=== PATIENT | male | born 1965 | race Caucasian/White ===

== ENCOUNTER 2016-12-02 07:25 | Inpatient (IN) ==
[2016-12-02] MEDS ORDERED: 0.9 % Sodium Chloride 1,000 ML IVC ONE ×2 (08:04→09:07)
--- NOTE | 2016-12-02 08:15 | Emergency Department Note ---
START Narrative - START START: I examined this patient and my medical decision-making was reviewed with the MAINTENANCE TECH/PA/Advanced Practice Nurse/Resident Physician. I agree with the documented findings, disposition and treatment plan as described except to the extent set forth below. ED attending note: Patient seen with emergency medicine resident Dr. POZO. Please see a copy of his note for details of the H&P, evaluation, management and disposition of this patient. We independently had [id number] contact with the patient Briefly: A 51-year-old male presents ambulatory with family for gradual 1 day onset of shivers low-grade fever while shortness of breath. He said he felt this way when he "had a blood infection" in the past. Patient does have a small ulcer on the foot. He is diabetic. Tachycardic at 107 hypertensive systolic at 218 but due to his nausea did not take his morning dose of Coreg. Patient denies chest pain or photophobia. GCS 15. Low-grade fever 99.5. Physical examination is essentially benign. Patient will undergo a workup for possible seizures, looking for source of infection. Labs and imaging are pending. Patient getting IV fluid rehydration and antiemetics. Disposition pending
[2016-12-02 08:21] LABS: Basophils # 0.1 K/mcL (0.0-0.2); Basophils % 0.4 %; Eosinophils # 0.8 K/mcL (0.0-0.6); Eosinophils % 4.9 %; Hemoglobin 10.2 g/dL (12.9-16.9); Immature Granulocytes % 0.2 % (0-4); Lymphocytes # 1.2 K/mcL (0.6-4.6); Lymphocytes % 7.2 %; Mean Corpuscular HGB Conc 30.9 g/dL (31.6-35.5); Mean Corpuscular Hemoglobin 27.7 pg (28.0-33.3); Mean Corpuscular Volume 89.7 fL (83.0-100.0); Mean Platelet Volume 10.7 fL (9.4-12.4); Monocytes # 1.2 K/mcL (0.0-1.3); Monocytes % 6.9 %; Neutrophils # 13.4 K/mcL (1.6-8.9); Platelet Count 230 K/mcL (140-400); Red Blood Count 3.68 M/mcL (4.19-5.50); Red Cell Distribution Width 14.9 % (11.5-14.5); Segmented Neutrophils % 80.4 %
[2016-12-02 08:23] LABS: Bilirubin,Urine Negative (Negative); Blood,Urine Negative (Negative); Clarity,Urine Clear (Clear); Color,Urine Yellow (Yellow); Glucose,Urine (UA) Normal (Normal); Ketones,Urine Negative (Negative); Leukocyte Esterase,Urine Negative (Negative); Nitrite,Urine Negative (Negative); PH,Urine 6.5 pH Units (5.0-8.0); Protein,Urine 100 mg/dL (Neg-Trace); Specific Gravity,Urine 1.013 (1.010-1.025); Urobilinogen,Urine Normal (Normal)
--- NOTE | 2016-12-02 08:24 | Emergency Department Note ---
Disposition Clinical Impression: Altered mental status Sepsis Qualifiers: Sepsis type: sepsis due to unspecified organism Qualified Code(s): A41.9 - Sepsis, unspecified organism Leukocytosis Qualifiers: Leukocytosis type: unspecified Qualified Code(s): D72.829 - Elevated white blood cell count, unspecified Disposition: Admitted As Inpatient Condition: Fair Time of Disposition: 11:49 General Adult HPI - General Chief complaint: ED Fever Stated complaint: "shivers", vomiting, fever Time Seen by Provider: 12/02/16 07:35 Source: patient, family Mode of arrival: wheelchair Limitations: no limitations Nursing Notes Reviewed: Yes Vital Signs Reviewed: Yes - History of Present Illness HPI Narrative: Patient is a 51-year-old male with a past medical history of type 2 diabetes, high cholesterol, hypertension presenting to the emergency department for fever and chills with one episode of vomiting onset last night at 8:00 PM. Yesterday evening he had chills and he woke up at 3:00 AM this morning feeling feverish, he then had 1 episode of vomiting at 6:00 AM this morning. He states the symptoms feel similar to an episode of nausea, vomiting, and fever that he had a few years ago that was related to infection caused by his diabetic foot ulcer. He has a healing foot ulcer on his plantar aspect of his right foot near the arch that has been painful for the last 2 days however, his did not notice any redness or drainage around the wound. His took is temperature and it was 99.0F, however he does take Tylenol Extra Strength every night and he says that he took 500 mg this morning. He also did not take his Coreg this morning due to his nausea and vomiting. He denies any chest pain, he does have some shortness of breath with a non-productive cough for the past couple of days, denies any abdominal pain, no change in stools, and no new swelling in his lower extremities. His states that the patient's legs actually look better today than they normally do as far as swelling. Denies any recent sick contacts. He has allergies to Keflex and Levaquin. He sees Dr. Alford for his diabetic foot ulcer and Dr. Hodgson for podiatry. Onset (ago): day(s) Pain Scale: 0 Associated symptoms: Reports: cough, fever/chills, nausea/vomiting, shortness of breath. Denies: confusion, chest pain, diaphoresis, headaches, loss of appetite, malaise, rash, seizure, syncope, weakness Treatments Prior to Arrival: other (Tylenol ES) - Related Data Home Medications Medication Instructions Recorded Confirmed Acetaminophen [Tylenol] 500 mg PO HS 12/02/16 12/02/16 Carvedilol Phosphate [Coreg Cr] 80 mg PO DAILY 12/02/16 12/02/16 Clobetasol Propionate [Temovate] 1 appl TP BID PRN 12/02/16 12/02/16 Ergocalciferol (VITAMIN D2) 50,000 unit PO QWEEK 12/02/16 12/02/16 [Vitamin D2] Famotidine/Ca Carb/Mag Hydrox 1 each PO DAILY PRN 12/02/16 12/02/16 [Pepcid Complete Tablet Chew] Fluticasone/Salmeterol [Advair 1 each IH BID PRN 12/02/16 12/02/16 250-50 Diskus] Furosemide [Lasix] 40 mg PO DAILY 12/02/16 12/02/16 Gabapentin [Neurontin] 100 mg PO HS 12/02/16 12/02/16 Insulin Glargine,Hum.rec.anlog 46 units SQ BID 12/02/16 12/02/16 [Lantus Solostar] Lisinopril [Lisinopril] 2.5 mg PO DAILY 12/02/16 12/02/16 Metformin HCl [Glucophage] 1,000 mg PO BID 12/02/16 12/02/16 Pentoxifylline [Pentoxifylline] 400 mg PO BID 12/02/16 12/02/16 Potassium Chloride 20 meq PO DAILY 12/02/16 12/02/16 Pramipexole [Mirapex] 0.25 mg PO BID 12/02/16 12/02/16 Simvastatin [Zocor] 20 mg PO DAILY 12/02/16 12/02/16 Triamcinolone Acet 0.1% CRM 1 appl TP BID PRN 12/02/16 12/02/16 [Kenalog] Warfarin [Coumadin] 8 mg PO SUTUWETHSA 12/02/16 12/02/16 Warfarin [Coumadin] 10 mg PO MOFR 12/02/16 12/02/16 Allergies Allergy/AdvReac Type Severity Reaction Status Date / Time peanut Allergy Anaphylaxis Verified 12/02/16 11:25 cephalexin [From Keflex] AdvReac Rash Verified 12/02/16 11:25 levofloxacin AdvReac Rash Verified 12/02/16 11:25 Sulfa (Sulfonamide AdvReac Rash Verified 12/02/16 11:25 Antibiotics) All systems ED: reviewed and negative except as stated. Constitutional: Reports: fever, chills ENT ED: Denies: ear pain, throat pain Cardiovascular: Denies: chest pain, palpitations, dyspnea on exertion, edema Respiratory: Reports: cough, dyspnea. Denies: wheezes, hemoptysis, sputum production Gastrointestinal: Reports: nausea, vomiting. Denies: abdominal pain, diarrhea, hematemesis, melena, hematochezia Genitourinary: Denies: urgency, dysuria, frequency, hematuria Musculoskeletal: Denies: back pain, neck pain Integumentary: Denies: rash Past Medical History - Past Medical History Medical history: Reports: asthma, diabetes, hypertension, other Psychiatric history: Reports: no psych history - Social History Smoking Status: Never smoker Smokeless Tobacco Status: No Alcohol use: Reports: none Drug use: Reports: none Physical Exam - General Limitations: no limitations General appearance: alert, in no apparent distress, obese - Eye Eye exam: Present: normal appearance - ENT ENT exam: normal exam, normal oropharynx, mucous membranes dry - Neck Neck exam: Present: normal inspection, full ROM, trachea midline. Absent: tenderness - Chest Chest inspection: Present: normal inspection, symmetric chest wall rise. Absent : tenderness - Respiratory Respiratory exam: Present: normal lung sounds bilaterally, wheezes. Absent: respiratory distress - Cardiovascular Cardiovascular exam: Present: regular rate, normal rhythm, normal heart sounds - Abdominal Exam Abdominal exam: Present: soft, Non-Tender, normal bowel sounds - Expanded Lower Extremity Exam Lower leg exam: Present: swelling (Patient has chronic venous stasis changes to bilateral lower extremities. His lower extremities are swollen bilaterally. No calf tenderness. No obvious rash, wound, or drainage. Warm to touch.). Absent: tenderness Foot/toe exam: Present: other (Pt has a healing ulcer that is about [id number] on the planter aspect of his right foot. The ulcer looks clean, non-erythematous, no drainage or crepitance. ) Neurovascular/Tendon exam: Present: normal capillary refill. Absent: pulse deficit - Back Exam Back exam: Present: normal inspection. Absent: tenderness - Neurological Exam Neurological exam: Present: alert, oriented X3 - Psychiatric Psychiatric exam: Present: normal affect, normal mood - Skin Skin exam: Present: warm, dry, intact, pallor Course Course Narrative: Is a 51-year-old male presents to emergency department with a complaint of shivering, fevers, SOB, she did a workup for seizures and I am going to look for source of infection. Since blood pressure is elevated and one episode of vomiting. He states his symptoms are similar to last time he had an infection in his bloodstream related to a foot ulcer. He does have a healing foot ulcer on his right foot. My plan is to order labs and imaging to work the patient up for SIRS and attempt to find a source of infection. - Reevaluation(s) Reevaluation #1: The patient remains stable his vital signs are: HR 111, BP 183/54, 99% on 2L CBC came back with leukocytosis, his INR was elevated but that seems chronic when reviewing past labs, his urine does not show any sign of infection, bleeding or dehydration. Time: 08:53 Reevaluation #2: The patient's stated the patient is on Coumadin and he is seen at a Coumadin clinic regularly he has a past medical history of PE's. Pt vital signs are 147/105, HR 111, 100RA. I ordered at CTA of the chest. Patient is becoming more difficult to arouse. The patient's states this is similar to the last time he had a infection of his blood stream. Time: 09:14 Reevaluation #3: The patient has a negative CTA chest. Vancomycin and Zosyn due to patient's current condition is elevated heart rate and white blood cell count and concern for sepsis possible source of infection being his right foot ulcer. Plan is to admit the patient. I ordered a garvey. Time: 10:56 - Consultations Consultation #1: I spoke with Dr. Valera and he agrees to admit the patient. I placed a consult for podiatry to further evaluate the patient's foot ulcer. Time: 11:40 Consultation #2: Dr. Parish with podiatry agrees to see the patient in hospital. Time: 12:37 Vital Signs Temperature 99.5 F 12/02/16 07:27 Pulse Rate 107 12/02/16 07:27 Respiratory Rate 16 12/02/16 07:27 Blood Pressure 213/94 12/02/16 07:27 O2 Sat by Pulse Oximetry 98 12/02/16 07:27 Temperature 102.2 F H 12/02/16 12:00 Pulse Rate 106 12/02/16 11:39 Respiratory Rate 18 12/02/16 12:00 Blood Pressure 122/69 12/02/16 12:00 O2 Sat by Pulse Oximetry 98 12/02/16 11:39 Oxygen Delivery Oxygen Delivery Nasal Cannula Medical Decision Making - Medical Records Medical records reviewed: Yes I reviewed the patient's medical records. - Lab Data Lab results reviewed: Yes I reviewed the patient's lab results. Result diagrams: 12/02/16 08:11 12/02/16 08:11 Lab Results 12/02/16 12/02/16 12/02/16 Range/Units 08:11 08:11 08:11 WBC 16.6 H (4.3-11.1) K/mcL RBC 3.68 L (4.19-5.50) M/mcL Hgb 10.2 L (12.9-16.9) g/dL Hct 33.0 L (37.5-50.1) % MCV 89.7 (83.0-100.0) fL MCH 27.7 L (28.0-33.3) pg MCHC 30.9 L (31.6-35.5) g/dL RDW 14.9 H (11.5-14.5) % Plt Count 230 (140-400) K/mcL MPV 10.7 (9.4-12.4) fL Immature Gran % 0.2 (0-4) % Seg Neutrophils % 80.4 % Lymphocytes % 7.2 % Monocytes % 6.9 % Eosinophils % 4.9 % Basophils % 0.4 % Neutrophils # 13.4 H (1.6-8.9) K/mcL Lymphocytes # 1.2 (0.6-4.6) K/mcL Monocytes # 1.2 (0.0-1.3) K/mcL Eosinophils # 0.8 H (0.0-0.6) K/mcL Basophils # 0.1 (0.0-0.2) K/mcL PT 20.2 H (9.4-12.1) Seconds INR 1.8 APTT 34.7 (26.0-36.0) Seconds Sodium (136-145) mEq/L Potassium (3.5-4.5) mEq/L Chloride (98-109) mEq/L Carbon Dioxide (19-29) mEq/L BUN (8-26) mg/dL Creatinine (0.72-1.25) mg/dL Est GFR ( Amer) (> 60) Est GFR (Non-Af Amer) (> 60) BUN/Creatinine Ratio (6-26) Glucose (70-99) mg/dL Calculated Osmolality (280-300) Lactic Acid 1.7 (0.5-2.2) mmol/L Calcium (8.6-10.8) mg/dL Phosphorus (2.3-4.7) mg/dL Magnesium (1.6-2.6) mg/dL Total Bilirubin (0.2-1.2) mg/dL AST (5-34) Units/L ALT (0-55) Units/L Alkaline Phosphatase (38-126) Units/L Troponin I (0-0.03) ng/mL Serum Total Protein (6.0-8.3) g/dL Albumin (3.5-5.0) g/dL Globulin (2.4-3.5) g/dL Albumin/Globulin Ratio (1.1-2.2) Urine Color (Yellow) Urine Clarity (Clear) Urine pH (5.0-8.0) pH Units Ur Specific [place] (1.010-1.025) Urine Protein (Neg-Trace) mg/dL Urine Glucose (UA) (Normal) mg/dL Urine Ketones (Negative) mg/dL Urine Blood (Negative) Urine Nitrite (Negative) Urine Bilirubin (Negative) Urine Urobilinogen (Normal) mg/dL Ur Leukocyte Esterase (Negative) Urine Microscopic RBC (0-3) per hpf Urine Microscopic WBC (0-3) per hpf Ur Squamous Epith Cells (None-Few) per lpf Urine Bacteria (None-Few) per hpf Hyaline Casts (None-Few) per lpf Ur Culture Indicated? (NO) 12/02/16 12/02/16 12/02/16 Range/Units 08:11 08:11 08:15 WBC (4.3-11.1) K/mcL RBC (4.19-5.50) M/mcL Hgb (12.9-16.9) g/dL Hct (37.5-50.1) % MCV (83.0-100.0) fL MCH (28.0-33.3) pg MCHC (31.6-35.5) g/dL RDW (11.5-14.5) % Plt Count (140-400) K/mcL MPV (9.4-12.4) fL Immature Gran % (0-4) % Seg Neutrophils % % Lymphocytes % % Monocytes % % Eosinophils % % Basophils % % Neutrophils # (1.6-8.9) K/mcL Lymphocytes # (0.6-4.6) K/mcL Monocytes # (0.0-1.3) K/mcL Eosinophils # (0.0-0.6) K/mcL Basophils # (0.0-0.2) K/mcL PT (9.4-12.1) Seconds INR APTT (26.0-36.0) Seconds Sodium 143 (136-145) mEq/L Potassium 5.1 H (3.5-4.5) mEq/L Chloride 106 (98-109) mEq/L Carbon Dioxide 31 H (19-29) mEq/L BUN 26 (8-26) mg/dL Creatinine 1.58 H (0.72-1.25) mg/dL Est GFR ( Amer) 57 L (> 60) Est GFR (Non-Af Amer) 47 L (> 60) BUN/Creatinine Ratio 16 (6-26) Glucose 160 H (70-99) mg/dL Calculated Osmolality 304 H (280-300) Lactic Acid (0.5-2.2) mmol/L Calcium 9.3 (8.6-10.8) mg/dL Phosphorus 2.2 L (2.3-4.7) mg/dL Magnesium 1.7 (1.6-2.6) mg/dL Total Bilirubin 0.4 (0.2-1.2) mg/dL AST 20 (5-34) Units/L ALT 24 (0-55) Units/L Alkaline Phosphatase 101 (38-126) Units/L Troponin I 0.01 (0-0.03) ng/mL Serum Total Protein 6.9 (6.0-8.3) g/dL Albumin 3.5 (3.5-5.0) g/dL Globulin 3.4 (2.4-3.5) g/dL Albumin/Globulin Ratio 1.0 L (1.1-2.2) Urine Color Yellow (Yellow) Urine Clarity Clear (Clear) Urine pH 6.5 (5.0-8.0) pH Units Ur Specific [place] 1.013 (1.010-1.025) Urine Protein 100 H (Neg-Trace) mg/dL Urine Glucose (UA) Normal (Normal) mg/dL Urine Ketones Negative (Negative) mg/dL Urine Blood Negative (Negative) Urine Nitrite Negative (Negative) Urine Bilirubin Negative (Negative) Urine Urobilinogen Normal (Normal) mg/dL Ur Leukocyte Esterase Negative (Negative) Urine Microscopic RBC 0-3 (0-3) per hpf Urine Microscopic WBC 0-3 (0-3) per hpf Ur Squamous Epith Cells Many H (None-Few) per lpf Urine Bacteria None Seen (None-Few) per hpf Hyaline Casts None Seen (None-Few) per lpf Ur Culture Indicated? NO (NO) 12/02/16 Range/Units 10:30 WBC (4.3-11.1) K/mcL RBC (4.19-5.50) M/mcL Hgb (12.9-16.9) g/dL Hct (37.5-50.1) % MCV (83.0-100.0) fL MCH (28.0-33.3) pg MCHC (31.6-35.5) g/dL RDW (11.5-14.5) % Plt Count (140-400) K/mcL MPV (9.4-12.4) fL Immature Gran % (0-4) % Seg Neutrophils % % Lymphocytes % % Monocytes % % Eosinophils % % Basophils % % Neutrophils # (1.6-8.9) K/mcL Lymphocytes # (0.6-4.6) K/mcL Monocytes # (0.0-1.3) K/mcL Eosinophils # (0.0-0.6) K/mcL Basophils # (0.0-0.2) K/mcL PT (9.4-12.1) Seconds INR APTT (26.0-36.0) Seconds Sodium (136-145) mEq/L Potassium (3.5-4.5) mEq/L Chloride (98-109) mEq/L Carbon Dioxide (19-29) mEq/L BUN (8-26) mg/dL Creatinine (0.72-1.25) mg/dL Est GFR ( Amer) (> 60) Est GFR (Non-Af Amer) (> 60) BUN/Creatinine Ratio (6-26) Glucose (70-99) mg/dL Calculated Osmolality (280-300) Lactic Acid 1.4 (0.5-2.2) mmol/L Calcium (8.6-10.8) mg/dL Phosphorus (2.3-4.7) mg/dL Magnesium (1.6-2.6) mg/dL Total Bilirubin (0.2-1.2) mg/dL AST (5-34) Units/L ALT (0-55) Units/L Alkaline Phosphatase (38-126) Units/L Troponin I (0-0.03) ng/mL Serum Total Protein (6.0-8.3) g/dL Albumin (3.5-5.0) g/dL Globulin (2.4-3.5) g/dL Albumin/Globulin Ratio (1.1-2.2) Urine Color (Yellow) Urine Clarity (Clear) Urine pH (5.0-8.0) pH Units Ur Specific [place] (1.010-1.025) Urine Protein (Neg-Trace) mg/dL Urine Glucose (UA) (Normal) mg/dL Urine Ketones (Negative) mg/dL Urine Blood (Negative) Urine Nitrite (Negative) Urine Bilirubin (Negative) Urine Urobilinogen (Normal) mg/dL Ur Leukocyte Esterase (Negative) Urine Microscopic RBC (0-3) per hpf Urine Microscopic WBC (0-3) per hpf Ur Squamous Epith Cells (None-Few) per lpf Urine Bacteria (None-Few) per hpf Hyaline Casts (None-Few) per lpf Ur Culture Indicated? (NO) - Radiology Data Radiology results reviewed: Yes I reviewed the patient's radiology results. Chest X-Ray 12/02/16 08:07 IMPRESSION: No acute findings. 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 Diffuse soft tissue swelling without acute osseous abnormality. No evidence of superimposed active osteomyelitis D/ / Dylan Diaz MD / Dylan Diaz MD Interpreting Provider: Dylan Diaz MD Chest CTA 12/02/16 09:06 IMPRESSION: No evidence of pulmonary embolism or acute pulmonary abnormality. D/ / Francisco J Pérez MD / Francisco J Pérez MD Interpreting Provider: Francisco J Pérez MD - EKG Data EKG #1 EKG attestation: Yes I reviewed and interpreted this EKG. EKG results narrative: KG was interpreted by me and not a member of parliament. Patient has a rate of 107. EKG is sinus tachycardia. Normal axis. Normal MT, QRS, QT/QTc intervals. Unchanged from prior EKG on 08/16/2014
[2016-12-02 08:27] LABS: Bacteria,Urine None Seen per hpf (None-Few); Hyaline Casts,Urine None Seen per lpf (None-Few); RBC,Urine 0-3 per hpf (0-3); Squamous Epithelial Cell,Urine Many per lpf (None-Few); WBC,Urine 0-3 per hpf (0-3)
[2016-12-02 08:27] LABS: INR 1.8; Prothrombin Time 20.2 Seconds (9.4-12.1)
[2016-12-02 08:30] LABS: Activated Partial Thrombo Time 34.7 Seconds (26.0-36.0)
[2016-12-02 08:36] LABS: Albumin 3.5 g/dL (3.5-5.0); Bilirubin,Total 0.4 mg/dL (0.2-1.2); Calcium 9.3 mg/dL (8.6-10.8); Globulin 3.4 g/dL (2.4-3.5); Magnesium 1.7 mg/dL (1.6-2.6); Phosphorous 2.2 mg/dL (2.3-4.7); Potassium 5.1 mEq/L (3.5-4.5); Total Protein 6.9 g/dL (6.0-8.3)
[2016-12-02] MEDS ORDERED: Acetaminophen IV 1,000 MG/100 ML INFUS..BTL IVPB ONE (09:38)
[2016-12-02] MEDS ORDERED: *HR* Midazolam HCl 2 MG/2 ML VIAL IVP ONE (09:46)
[2016-12-02] MEDS ORDERED: Vancomycin 1,000 MG in D5% in Water 250 ML IVPB ONE ×2 (10:10→13:34)
[2016-12-02] MEDS ORDERED: Piperacillin/Tazobactam 3.375 GM in D5% in Water (Mini-Bag+) 100 ML IVPB ONE (10:10)
--- NOTE | 2016-12-02 12:06 | Electrocardiograph Report ---
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
[2016-12-02] MEDS ORDERED: *HR* Morphine 2 MG/ML SYRINGE IVP PRN (12:25)
[2016-12-02] MEDS ORDERED: Naloxone 0.4 MG/ML INJ IVP PRN (12:25)
[2016-12-02] MEDS ORDERED: Ondansetron 4 MG/2 ML VIAL IVP PRN (12:25)
[2016-12-02] MEDS ORDERED: Acetaminophen 325 MG TABLET PO PRN (12:25)
[2016-12-02] MEDS ORDERED: *HR* HYDROcodone/Acet 5/325 mg TABLET PO PRN (12:25)
[2016-12-02] MEDS ORDERED: Triamcinolone Acet 0.1% CRM 1 APPL GRAM TP PRN (12:32)
[2016-12-02] MEDS ORDERED: CLOBETASOL PROPIONATE 15 GM TUBE TP PRN (12:32)
[2016-12-02] MEDS ORDERED: *HR* Warfarin 10 MG TABLET PO SCH (12:45)
[2016-12-02] MEDS ORDERED: D5% in Water 1,000 ML IVC PRN (12:51)
[2016-12-02] MEDS ORDERED: Dextrose Gel 15 GM PO PRN ×2 (12:51)
[2016-12-02] MEDS ORDERED: *HR* Dextrose 50 % in Water (Syg) 50 ML SYRINGE IVP PRN (12:51)
--- NOTE | 2016-12-02 12:57 | Internal Med History&Physical ---
<JackieSaul Reyna - Last Filed: 12/02/16 13:32> Date of Encounter: 12/02/16 Time of Encounter: 11:45 Assessment and Plan (1) Sepsis Current visit: Yes Status: Acute Patient presents with WBC on admission is 16.6, HR was 99-107 bpm, and temperature in the ED was 102.2F. Patient currently meets sepsis protocol based on these factors. Initial lactic acid was 1.7. Patient will be placed on sepsis precautions with IV vancomycin and IV Zosyn started in the ED. We will continue IV vancomycin with pharmacy dosing and IV Zosyn 3.375 gm Q8. Patient to be placed on continuous cardiac telemetry, supplemental O2 with continuous SPO2 monitoring, timed lactic acids, continuation of IV fluids at 150 mL/HR, follow- up labs, blood cultures x2, and safety precautions due to pain with ambulation. Patient is at high risk for sepsis complications and will be placed as inpatient status. Patient to be monitored closely for signs of increased cardiac and/or respiratory distress. Qualifiers: Sepsis type: sepsis due to unspecified organism Qualified Code(s): A41.9 - Sepsis, unspecified organism (2) Altered mental status Current visit: Yes Status: Acute Patient presents with transient altered mental status due to current infection and symptomology. IV vancomycin and IV Zosyn to be continued for infection coverage and patient placed as falls precautions/up with assist/bedrest with bathroom privileges with assist only. Qualifiers: Altered mental status type: disorientation Qualified Code(s): R41.0 - Disorientation, unspecified (3) SOB (shortness of breath) Current visit: Yes Status: Acute Patient presents with acute shortness of breath related to current symptomology. Supplemental O2 with titration if SPO2 less than 92% ordered as well as continuous SPO2 monitoring. DuoNebs ordered Q6 for SOB. Patient placed on falls precautions/up with assist/bed rest with bathroom privileges with assist only due to SOB and foot pain. (4) Diabetic foot ulcer Current visit: Yes Status: Acute Patient presents with diabetic foot ulcer on sole of right foot that is erythematous, edematous, and painful with palpation. 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 IV vancomycin and IV Zosyn ordered for infection coverage. Sepsis protocol to be followed. Podiatry consult ordered and placed with Dr. Hodgson while patient was in the ED. Diabetic education, nutrition, PT, and OT consults ordered. Qualifiers: Diabetic foot ulcer location: other Diabetes mellitus type: type 2 Laterality: right Non-pressure ulcer stage: limited to breakdown of skin Qualified Code(s): E11.621 - Type 2 diabetes mellitus with foot ulcer; L97.511 - Non-pressure chronic ulcer of other part of right foot limited to breakdown of skin (5) Diabetes Current visit: Yes Status: Chronic Patient presents with history of chronic diabetes with insulin dependency that is uncontrolled. We will continue patient's Lantus twice a day in order low- dose correction insulin sliding scale with hypoglycemia protocol. Will hold patient's metformin. Blood glucose monitoring ACHS. A1c ordered. Diabetic education consult ordered as well as nutrition consult. 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 Will continue patient's carvedilol and monitor patient's vital signs. Qualifiers: Hypertension type: essential hypertension Qualified Code(s): I10 - Essential (primary) hypertension (7) HLD (hyperlipidemia) Current visit: Yes Status: Chronic Patient presents with history of hyperlipidemia. Lipid panel ordered. Will continue patient's statin. Qualifiers: Hyperlipidemia type: pure hypercholesterolemia Qualified Code(s): E78.00 - Pure hypercholesterolemia, unspecified; E78.0 - Pure hypercholesterolemia (8) DVT prophylaxis Current visit: Yes Status: Acute Patient placed on DVT prophylaxis to current admission protocol and bed rest status. Will continue patient's warfarin therapy. Internal Medicine - H&P: HPI Chief complaint: Chills, vomiting, fever Admitted From: Emergency Dept Plans for Post Hospital Care: Home History of present illness: Mr. Jones is a 51 year old male who presents from the ED with chief complaint of chills, fever, nausea, and vomiting that he reports began this morning approximately at 3 a.m. Patient was seen previously for diabetic foot ulcer in July when he had similar symptoms. 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 He is usually active and reports cutting the grass yesterday but today the pain was extreme on the right sole of his foot. Patient also reports some SOB with his symptoms. Patient has a medical history includes asthma, diabetes with insulin dependency, hypertension, hyperlipidemia , and suspected thyroid disease. Patient denies any previous cardiac history or issues. Patient also denies generalized weakness, chest pain, palpitations, cough, abdominal pain, diarrhea, unusual bleeding, presyncope, or syncope. Patient does report pain in ambulation due to swelling and erythema of foot. Patient's WBC on admission is 16.6, HR was 99-107 bpm, and temperature in the ED was 102.2F. Patient currently meets sepsis protocol based on these factors. Initial lactic acid was 1.7. Patient will be placed on sepsis protocol with IV vancomycin and IV Zosyn started in the ED. We will continue IV vancomycin with pharmacy dosing and IV Zosyn 3.375 gm Q8. Patient to be placed on continuous cardiac telemetry, supplemental O2 with continuous SPO2 monitoring, timed lactic acids, continuation of IV fluids at 150 mL/HR, follow-up labs, blood cultures x2, and safety precautions due to pain with ambulation. Patient is at high risk for sepsis complications and will be placed as inpatient status. Patient to be monitored closely for signs of increased cardiac and/or respiratory distress. Time spent with patient > 40 minutes. Past Med Surg Social Fam HX - Past Medical History Source: patient Medical history: asthma, diabetes, hyperlipidemia, hypertension, other Psychiatric history: no psych history - Social History Smoking Status: Never smoker Smokeless Tobacco Status: No Alcohol use: none Drug use: none Occupational status: employed Current living situation: Home, With Family Activity Level: Independent ambulation, Very active Recent Out of Country Travel Within the Last 8 Weeks: No Exposure or Possible Exposure to Illness During Travel: No - Family History Father Race: Family Member Ethnicity: Non- Living Status: Still Living Hx Family Cardiac Disorders: Yes (Heart valve replacement, venous stasis) Mother Race: Family Member Ethnicity: Non- Living Status: Age at : 89 Cause of : CKD Hx Family Genitourinary Disorders: Yes (CKD) Hx Family Endocrine Disorder: Yes (DM) Hx Family Neurologic Disorders: Yes (Alzheimer's disease) Brother Race: Family Member Ethnicity: Non- Living Status: Still Living Hx Family Cardiac Disorders: Yes (DVTs) Internal Medicine - H&P: Meds Acetaminophen [Tylenol] 500 mg PO HS 12/02/16 [History] Carvedilol Phosphate [Coreg Cr] 80 mg PO DAILY 12/02/16 [History] Clobetasol Propionate [Temovate] 1 appl TP BID PRN 12/02/16 [History] Ergocalciferol (VITAMIN D2) [Vitamin D2] 50,000 unit PO QWEEK 12/02/16 [History] Famotidine/Ca Carb/Mag Hydrox [Pepcid Complete Tablet Chew] 1 each PO DAILY PRN 12/02/16 [History] Fluticasone/Salmeterol [Advair 250-50 Diskus] 1 each IH BID PRN 12/02/16 [ History] Furosemide [Lasix] 40 mg PO DAILY 12/02/16 [History] Gabapentin [Neurontin] 100 mg PO HS 12/02/16 [History] Insulin Glargine,Hum.rec.anlog [Lantus Solostar] 46 units SQ BID 12/02/16 [ History] Lisinopril [Lisinopril] 2.5 mg PO DAILY 12/02/16 [History] Metformin HCl [Glucophage] 1,000 mg PO BID 12/02/16 [History] Pentoxifylline [Pentoxifylline] 400 mg PO BID 12/02/16 [History] Potassium Chloride 20 meq PO DAILY 12/02/16 [History] Pramipexole [Mirapex] 0.25 mg PO BID 12/02/16 [History] Simvastatin [Zocor] 20 mg PO DAILY 12/02/16 [History] Triamcinolone Acet 0.1% CRM [Kenalog] 1 appl TP BID PRN 12/02/16 [History] Warfarin [Coumadin] 8 mg PO SUTUWETHSA 12/02/16 [History] Warfarin [Coumadin] 10 mg PO MOFR 12/02/16 [History] Allergies peanut Allergy (Verified 12/02/16 11:25) Anaphylaxis cephalexin [From Keflex] Adverse Reaction (Verified 12/02/16 11:25) Rash levofloxacin Adverse Reaction (Verified 12/02/16 11:25) Rash Sulfa (Sulfonamide Antibiotics) Adverse Reaction (Verified 12/02/16 11:25) Rash All Systems PM: A 10-system review of systems was performed and is negative for pertinent findings except as documented above in the HPI. - Constitutional Constitutional: as per HPI, chills, fever(s), no night sweats - EENT Eyes: no change in vision, no discharge, no pain, no photophobia Ears: no ear discharge, no ear pain, no tinnitus Nose, mouth and throat: no dysphagia, no nasal discharge, no neck pain, no sore throat - Breasts Breasts: as per HPI - Cardiovascular Cardiovascular ROS IM: as per HPI, dyspnea, no chest pain, no diaphoresis, no lightheadedness, no palpitations, no syncope - Respiratory Respiratory: as per HPI, dyspnea, no cough, no wheezing, no excessive phlegm production - Gastrointestinal Gastrointestinal: as per HPI, nausea, vomiting, no abdominal pain, no diarrhea, no hematemesis, no hematochezia, no melena - Genitourinary Genitourinary ROS male: as per HPI - Musculoskeletal Musculoskeletal ROS IM: no numbness, no tingling - Integumentary Integumentary IM: no rash, no unusual bruising - Neurological Neurological ROS: no confusion, no convulsions, no focal weakness, no numbness, no tingling, no tremor(s) - Psychiatric Psychiatric: as per HPI - Endocrine Endocrine IM: as per HPI - Hematologic/Lymphatic Hematologic/Lymphatic: no easy bruising - Allergic/Immunologic Allergic/Immunologic: as per HPI - Constitutional Vitals: Temp Pulse Resp BP Pulse Ox 102.2 F H 106 18 122/69 98 12/02/16 12:00 12/02/16 11:39 12/02/16 12:00 12/02/16 12:00 12/02/16 11:39 General appearance: Present: cooperative, mild distress, A&O X 3, morbidly obese , pleasant, answers questions appropriately - Head Head exam: Present: atraumatic, normocephalic - Eye Eye exam: Present: PERRL, conjuntiva pink, sclera anicteric Pupils: Present: PERRL - ENT ENT exam: Present: normal exam, normal external ear exam - Neck Neck exam general surgery: Present: normal inspection, supple, trachea midline - Respiratory Respiratory exam: Present: CTAB. Absent: accessory muscle use, rales, rhonchi, wheezes - Cardiovascular Cardiovascular exam: Present: RRR, +S1, +S2. Absent: diastolic murmur, gallop, rubs, systolic murmur - GI/Abdominal GI/Abdominal exam: Present: normal bowel sounds, soft, no peritoneal signs. Absent: distended, tenderness - Rectal Rectal exam: Present: deferred - Additional comments: exam deferred. - Extremities Exam Extremities exam: Present: warm, radial pulses palpable and symetrical. Absent : calf tenderness, cyanotic, pedal edema - Back Exam Back exam: Present: normal inspection - Neurological Exam Neurological exam: Present: CN II-XII intact, oriented X3, no focal deficits. Absent: pronater drift, facial droop, speech deficit - Psychiatric Psychiatric exam: Present: normal affect, normal mood - Skin Skin exam: Present: dry, intact Internal Med - H&P Results - Labs CBC & Chem 7: 12/02/16 08:11 12/02/16 08:11 - EKG Data EKG shows normal: sinus rhythm Rate: tachycardia - EKG Data Prior EKG available for review: yes When compared to previous EKG: there is no significant change EKG comments: 12/02/16 13:14 EKG dated 08/16/14 shows sinus tachycardia with marked right axis deviation, low QRS voltage in precordial leads, and possible inferior myocardial infarction (probably old). EKG dated shows sinus tachycardia with abnormal rhythm ECG. <Marci Valera - Last Filed: 12/02/16 15:06> Date of Encounter: 12/02/16 Internal Medicine - H&P: HPI History of present illness: Mr. Jones is a 51 year old male All Systems PM: A 10-system review of systems was performed and is negative for pertinent findings except as documented above in the HPI. - Constitutional Vitals: Temp Pulse Resp BP Pulse Ox 101.8 F H 105 20 144/71 98 12/02/16 13:36 12/02/16 13:36 12/02/16 13:36 12/02/16 13:36 12/02/16 13:36 Internal Med - H&P Results - Labs CBC & Chem 7: 07/21/17 08:11 12/02/16 08:11 - Attending Attestation I saw and examined pt. I have discussed with [employer] AGENT regarding treatment plan. Agree with the documentation. Pt has right foot infection, meet sepsis criteria, with follow sepsis protocol with IVF and IV Abx. Podiatry consult for wound management.
[2016-12-02] MEDS ORDERED: Vancomycin 2,000 MG in D5% in Water 250 ML IVPB SCH (13:00)
[2016-12-02] MEDS: 0.9 % Sodium Chloride 1,000 ML IVC SCH ×2 (13:45→22:46)
[2016-12-02] MEDS: Pantoprazole 40 MG VIAL IVP SCH (13:45)
[2016-12-02] MEDS: Cholecalciferol (D-3) 1,000 UNIT TABLET PO SCH (13:46)
[2016-12-02] MEDS: Acetaminophen 325 MG TABLET PO PRN (15:16)
[2016-12-02] MEDS: Ipratropium/Albuterol Neb 3 ML IH SCH ×2 (15:26→23:08)
[2016-12-02] MEDS ORDERED: *HR* Heparin 5,000 UNIT/ML VIAL SQ SCH (16:00)
[2016-12-02] MEDS: Insulin LISPRO 300 UNITS/3 ML VIAL SQ SCH ×2 (16:22→20:36)
--- NOTE | 2016-12-02 17:28 | Podiatry Consult Note ---
Date of Encounter: 12/02/16 Time of Encounter: 05:00 Assessment and Plan (1) Diabetic foot ulcer Current visit: Yes Status: Acute Reviewed with patient his condition, my findings, his xrays and my recommendations for treatment. He has had regular treatment for the ulceration on his right foot and it looks healed at this point. He has no erythema/ cellulitis of the right foot, it is slightly warmer than the contralateral limb , plantar fluctuant area is more consistent with bursal sac from his charcot condition than abscess. source of his increase wbc is unidentified at this point and I do not think it is coming from his foot but will order an MRI w/o contrast to look for abscess in the fluctuant bursal sac area. I suspect this MRI will show enchancement where he has Charcot bone changes and will not be able to rule out osteomyelitis, he does not have osteomyelitis, he has CHARCOT ARTHROPATHY. If the MRI is negative for abscess he is not septic from his foot. Weight bearing as tolerated in his GALENA walker boot, if he does not have the GALENA walker on then he should not be ambulating. Qualifiers: Diabetic foot ulcer location: other Diabetes mellitus type: type 2 Laterality: right Non-pressure ulcer stage: limited to breakdown of skin Qualified Code(s): E11.621 - Type 2 diabetes mellitus with foot ulcer; L97.511 - Non-pressure chronic ulcer of other part of right foot limited to breakdown of skin History of Present Illness HPI: Mr. Jones is a 51 year old diabetic male with a known right foot Charcot. In July of 2016 he developed a new ulceration on the plantar aspect of the right foot. He has had regular treatment for the ulceration and it has healed over by Dr. Alford in [place]. He is currently in a GALENA walker boot. He says he experienced chills at home which is what brought him to the hospital. The ER called me to evaluate the patient's right foot and said he was septic due to the wound on the right foot which was open and erythematous. He does not have a bandage on the area. He last saw Dr. Hodgson in 2016. Past Med Surg Social Fam HX - Past Medical History Medical history: asthma, diabetes, hyperlipidemia, hypertension, other Psychiatric history: no psych history - Past Surgical History Surgical History: herniorrhaphy - Social History Smoking Status: Never smoker Smokeless Tobacco Status: No Alcohol use: none Drug use: none - Family History Mother History Unknown: Yes Father Race: Family Member Ethnicity: Non- Living Status: Still Living Hx Family Cardiac Disorders: Yes (Heart valve replacement, venous stasis) Brother Race: Family Member Ethnicity: Non- Living Status: Still Living Hx Family Cardiac Disorders: Yes (DVTs) Medications and Allergies Acetaminophen [Tylenol] 500 mg PO HS 12/02/16 [History] Carvedilol Phosphate [Coreg Cr] 80 mg PO DAILY 12/02/16 [History] Clobetasol Propionate [Temovate] 1 appl TP BID PRN 12/02/16 [History] Ergocalciferol (VITAMIN D2) [Vitamin D2] 50,000 unit PO QWEEK 12/02/16 [History] Famotidine/Ca Carb/Mag Hydrox [Pepcid Complete Tablet Chew] 1 each PO DAILY PRN 12/02/16 [History] Fluticasone/Salmeterol [Advair 250-50 Diskus] 1 each IH BID PRN 12/02/16 [ History] Furosemide [Lasix] 40 mg PO DAILY 12/02/16 [History] Gabapentin [Neurontin] 100 mg PO HS 12/02/16 [History] Insulin Glargine,Hum.rec.anlog [Lantus Solostar] 46 units SQ BID 12/02/16 [ History] Lisinopril [Lisinopril] 2.5 mg PO DAILY 12/02/16 [History] Metformin HCl [Glucophage] 1,000 mg PO BID 12/02/16 [History] Pentoxifylline [Pentoxifylline] 400 mg PO BID 12/02/16 [History] Potassium Chloride 20 meq PO DAILY 12/02/16 [History] Pramipexole [Mirapex] 0.25 mg PO BID 12/02/16 [History] Simvastatin [Zocor] 20 mg PO DAILY 12/02/16 [History] Triamcinolone Acet 0.1% CRM [Kenalog] 1 appl TP BID PRN 12/02/16 [History] Warfarin [Coumadin] 8 mg PO SUTUWETHSA 12/02/16 [History] Warfarin [Coumadin] 10 mg PO MOFR 12/02/16 [History] Allergies peanut Allergy (Verified 12/02/16 11:25) Anaphylaxis cephalexin [From Keflex] Adverse Reaction (Verified 12/02/16 11:25) Rash levofloxacin Adverse Reaction (Verified 12/02/16 11:25) Rash Sulfa (Sulfonamide Antibiotics) Adverse Reaction (Verified 12/02/16 11:25) Rash All Systems Reviewed: A 10-system review of systems was performed and is negative for pertinent findings except as documented above in the HPI. Physical Exam - Constitutional Vitals: Temp Pulse Resp BP Pulse Ox 98.9 F 97 18 101/56 98 12/02/16 15:59 12/02/16 15:59 12/02/16 15:59 12/02/16 15:59 12/02/16 15:59 Exam: 51 year old obese male in no acute distress Vasc: CFT < 3 sec x 5 digits b/l feet. b/l lower extremity edema, right worse than left. pulses on the right are not bounding. Derm: there is no open lesion on the bottom of his right foot. there is no erythema. plantar foot does have some fluctuance. there is an increase in temp on the right plantar foot compared to the left Musc: limited ROM consistent with condition. Neuro: sensation absent to light touch. Results - Labs Result Diagrams: 12/02/16 08:11 12/02/16 08:11 Labs: Abnormal lab results WBC 16.6 K/mcL (4.3-11.1) H 12/02/16 08:11 RBC 3.68 M/mcL (4.19-5.50) L 12/02/16 08:11 Hgb 10.2 g/dL (12.9-16.9) L 12/02/16 08:11 Hct 33.0 % (37.5-50.1) L 12/02/16 08:11 MCH 27.7 pg (28.0-33.3) L 12/02/16 08:11 MCHC 30.9 g/dL (31.6-35.5) L 12/02/16 08:11 RDW 14.9 % (11.5-14.5) H 12/02/16 08:11 Neutrophils # 13.4 K/mcL (1.6-8.9) H 12/02/16 08:11 Eosinophils # 0.8 K/mcL (0.0-0.6) H 12/02/16 08:11 PT 20.2 Seconds (9.4-12.1) H 12/02/16 08:11 Potassium 5.1 mEq/L (3.5-4.5) H 12/02/16 08:11 Carbon Dioxide 31 mEq/L (19-29) H 12/02/16 08:11 Creatinine 1.58 mg/dL (0.72-1.25) H 12/02/16 08:11 Est GFR ( Amer) 57 (> 60) L 12/02/16 08:11 Est GFR (Non-Af Amer) 47 (> 60) L 12/02/16 08:11 Glucose 160 mg/dL (70-99) H 12/02/16 08:11 Calculated Osmolality 304 (280-300) H 12/02/16 08:11 Phosphorus 2.2 mg/dL (2.3-4.7) L 12/02/16 08:11 Albumin/Globulin Ratio 1.0 (1.1-2.2) L 12/02/16 08:11 Urine Protein 100 mg/dL (Neg-Trace) H 12/02/16 08:15 Ur Squamous Epith Cells Many per lpf (None-Few) H 12/02/16 08:15 All other labs normal. - Diagnostic results Ankle/Foot x-ray: image reviewed Consult Discharge Plan - Plan Referrals: NO,PCP [Primary Care Provider] -
[2016-12-02] MEDS ORDERED: Warfarin perPT PO PRN (18:00)
[2016-12-02] MEDS: *HR* Warfarin 10 MG TABLET PO SCH (18:36)
[2016-12-02] MEDS: Gabapentin 100 MG CAPSULE PO SCH (20:36)
[2016-12-02] MEDS: Insulin DETEMIR 100 UNIT/ML X5UNITS SQ SCH (20:49)
[2016-12-02] MEDS ORDERED: Insulin DETEMIR 100 UNIT/ML X5UNITS SQ ONE (20:50)
[2016-12-02 21:44] LABS: Acinetobacter baumannii by PCR Not Detected (Not Detect); Enterococcus by PCR Not Detected (Not Detect); Escherichia coli by PCR Not Detected (Not Detect); Klebsiella oxytoca by PCR Not Detected (Not Detect); Staphylococcus aureus by PCR Not Detected (Not Detect); Streptococcus agalactiae(B)PCR ***DETECTED*** (Not Detect); Streptococcus by PCR ***DETECTED*** (Not Detect); Streptococcus pneumoniae PCR Not Detected (Not Detect); Streptococcus pyogenes (A) PCR Not Detected (Not Detect); blaKPC Carbapenem-Resist Gene Not Detected (Not Detect); mecA Methicillin-Resist Gene Not Detected (Not Detect); vanA/B Vancomycin-Resist Genes Not Detected (Not Detect)
[2016-12-02 21:45] LABS: Candida albicans by PCR Not Detected (Not Detect); Candida glabrata by PCR Not Detected (Not Detect); Candida krusei by PCR Not Detected (Not Detect); Candida parapsilosis by PCR Not Detected (Not Detect); Candida tropicalis by PCR Not Detected (Not Detect); Klebsiella pneumoniae by PCR Not Detected (Not Detect); Pseudomonas aeruginosa by PCR Not Detected (Not Detect); Serratia marcescens by PCR Not Detected (Not Detect)
[2016-12-02] MEDS: Piperacillin/Tazobactam 3.375 GM in D5% in Water (Mini-Bag+) 100 ML IVPB SCH (22:45)
[2016-12-03] MEDS: Acetaminophen 325 MG TABLET PO PRN (00:51)
[2016-12-03] MEDS ORDERED: Vancomycin 1,750 MG in D5% in Water 500 ML IVPB SCH (01:00)
[2016-12-03] MEDS: Ipratropium/Albuterol Neb 3 ML IH SCH ×4 (04:14→22:00)
[2016-12-03] MEDS: Piperacillin/Tazobactam 3.375 GM in D5% in Water (Mini-Bag+) 100 ML IVPB SCH (05:28)
[2016-12-03 06:08] LABS: Basophils % 0.4 %; Eosinophils % 0.3 %; Hematocrit 28.6 % (37.5-50.1); Hemoglobin 8.8 g/dL (12.9-16.9); Immature Granulocytes % 0.4 % (0-4); Lymphocytes # 1.3 K/mcL (0.6-4.6); Lymphocytes % 11.7 %; Mean Corpuscular HGB Conc 30.8 g/dL (31.6-35.5); Mean Corpuscular Hemoglobin 27.5 pg (28.0-33.3); Mean Corpuscular Volume 89.4 fL (83.0-100.0); Mean Platelet Volume 10.9 fL (9.4-12.4); Monocytes # 0.6 K/mcL (0.0-1.3); Monocytes % 5.4 %; Neutrophils # 8.9 K/mcL (1.6-8.9); Platelet Count 169 K/mcL (140-400); Red Cell Distribution Width 15.3 % (11.5-14.5); Segmented Neutrophils % 81.8 %
[2016-12-03 06:14] LABS: INR 1.8; Prothrombin Time 19.7 Seconds (9.4-12.1)
[2016-12-03 06:17] LABS: Activated Partial Thrombo Time 32.8 Seconds (26.0-36.0)
[2016-12-03 06:18] LABS: Hemoglobin A1C 7.7 %
[2016-12-03 06:25] LABS: BUN/Creatinine Ratio 13 (6-26); Blood Urea Nitrogen 19 mg/dL (8-26); Carbon Dioxide 26 mEq/L (19-29); Chloride 107 mEq/L (98-109); Chol/HDL Ratio 3.7 (0-4.9); Cholesterol 151 mg/dL (< 200); Glucose 92 mg/dL (70-99); HDL Cholesterol 41 mg/dL (40-59); LDL Cholesterol,Calculated 82 mg/dL (0-99); Magnesium 1.4 mg/dL (1.6-2.6); Osmolality,Calculated 288 (280-300); Sodium 138 mEq/L (136-145); Triglycerides 141 mg/dL (< 150); eGFR For African Americans > 60 (> 60); eGFR For Non-African Americans 51 (> 60)
[2016-12-03 06:26] LABS: Calcium 7.9 mg/dL (8.6-10.8); Potassium 3.9 mEq/L (3.5-4.5)
[2016-12-03] MEDS: CARVEDILOL PHOSPHATE 80 MG PO SCH (07:59)
[2016-12-03] MEDS: Insulin LISPRO 300 UNITS/3 ML VIAL SQ SCH ×4 (08:06→20:51)
[2016-12-03] MEDS: Insulin DETEMIR 100 UNIT/ML X5UNITS SQ SCH ×2 (08:10→21:13)
[2016-12-03] MEDS: Pantoprazole 40 MG VIAL IVP SCH (08:10)
[2016-12-03] MEDS: Furosemide 40 MG TABLET PO SCH (08:10)
[2016-12-03] MEDS: 0.9 % Sodium Chloride 1,000 ML IVC SCH ×4 (08:11→21:11)
[2016-12-03] MEDS: Cholecalciferol (D-3) 1,000 UNIT TABLET PO SCH (11:51)
[2016-12-03] MEDS ORDERED: *HR* Warfarin 4 MG TABLET PO SCH ×2 (12:32→18:00)
--- NOTE | 2016-12-03 12:34 | Internal Med Progress Note ---
Addendum entered and electronically signed by Kyler Rodriguez DO 12/03/16 13:02: Vancomycin and Zosyn have been discontinued. Patient placed on Unasyn instead. Patient placed on Lovenox 1/mg/kg due to nontherapeutic INR. Original Note: <Kyler Rodriguez - Last Filed: 12/03/16 12:31> Date of Encounter: 12/03/16 Time of Encounter: 12:30 - Assessment and plan (1) Sepsis Current Visit: Yes Status: Acute Assessment and plan: Patient presents with WBC on admission is 16.6, HR was 99-107 bpm, and temperature in the ED was 102.2F. -Met sepsis criteria on admission. -Lactic acid was 1.7. -Blood cultures were positive for strep agalactiae and gram positive cocci. -IV vancomycin and IV Zosyn started in the ED. -Patient to be placed on continuous cardiac telemetry, supplemental O2 with continuous SPO2 monitoring, timed lactic acids, continuation of IV fluids at 150 mL/HR -Patient to be monitored closely for signs of increased cardiac and/or respiratory distress. -White count has improved since admission. White count is currently 10.9. Patient's temperature this morning was 98.1. Qualifiers: Sepsis type: sepsis due to unspecified organism Qualified Code(s): A41.9 - Sepsis, unspecified organism (2) SOB (shortness of breath) Current Visit: Yes Status: Acute Assessment and plan: Patient initially presented with shortness of breath. -This has since resolved. -DuoNebs ordered Q6 for SOB. (3) Diabetic foot ulcer Current Visit: Yes Status: Acute Assessment and plan: Patient presented with diabetic foot ulcer on his right foot. -Ulcer located on the bottom of his foot. -Area is red and edematous. -Podiatry was consulted. -Continue IV antibiotics. Qualifiers: Diabetic foot ulcer location: other Diabetes mellitus type: type 2 Laterality: right Non-pressure ulcer stage: limited to breakdown of skin Qualified Code(s): E11.621 - Type 2 diabetes mellitus with foot ulcer; L97.511 - Non-pressure chronic ulcer of other part of right foot limited to breakdown of skin (4) Diabetes Current Visit: Yes Status: Chronic Assessment and plan: Patient on Lantus. Repeat hemoglobin A1c. 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 Patient says that he is feeling much better since his initial admission. He denies having any fever , chills, shortness of breath, nausea or vomiting. Patient states that he would like to have his catheter removed, which she said was placed because at the time of his admission, he was unaware that it was being put in. He denies having any problems urinating under normal circumstances. Patient denies having any pain in his right foot where his ulcer is. Some ulcers located on the bottom of his foot. It is currently not wrapped. Podiatry has been to consult on this patient. He has no complaints at this time. - Constitutional Vitals: Temp Pulse Resp BP Pulse Ox 98.1 F 91 14 135/71 97 12/03/16 11:27 12/03/16 11:27 12/03/16 11:27 12/03/16 11:27 12/03/16 11:27 General appearance: Present: cooperative, mild distress, A&O X 3, morbidly obese , pleasant, answers questions appropriately - Head Head exam: Present: atraumatic, normocephalic - Neck Neck exam general surgery: Present: supple, trachea midline. Absent: lymphadenopathy - Respiratory Respiratory exam: Present: CTAB. Absent: accessory muscle use, rales, rhonchi, wheezes - Cardiovascular Cardiovascular exam: Present: RRR, +S1, +S2. Absent: diastolic murmur, gallop, rubs, systolic murmur - GI/Abdominal GI/Abdominal exam: Present: normal bowel sounds, soft, no peritoneal signs. Absent: distended, tenderness - Extremities Exam Extremities exam: Present: warm, radial pulses palpable and symetrical - Expanded Lower Extremities Exam Foot/Toe exam: Present: deformity (Patient has diabetic ulcer on the bottom of his right foot. It is nontender.) - Skin Skin exam: Present: dry, intact Internal Medicine: Result - Labs CBC & Chem 7: 12/03/16 05:47 12/03/16 05:47 Labs: Short CBC 12/03/16 Range/Units 05:47 WBC 10.9 (4.3-11.1) K/mcL Hgb 8.8 L (12.9-16.9) g/dL Hct 28.6 L (37.5-50.1) % Plt Count 169 (140-400) K/mcL Neutrophils # 8.9 (1.6-8.9) K/mcL BMP 12/03/16 05:47 Sodium 138 Potassium 3.9 D Chloride 107 Carbon Dioxide 26 BUN 19 Creatinine 1.47 H Glucose 92 Calcium 7.9 L D - ABG Interpretation ABG results: PT/INR, D-dimer PT 19.7 Seconds (9.4-12.1) H 12/03/16 05:47 - Impressions Impressions Foot MRI 12/02/16 17:46 IMPRESSION: 1. Destructive and disorganized appearance of the midfoot articulations with malalignment of the tarsometatarsal articulations. Findings most suggestive of Charcot arthropathy. Associated bone marrow edema noted throughout the metatarsal bases and tarsal bones. 2. Flattening of both the 2nd and 3rd metatarsal heads with mild associated edema within the 3rd metatarsal head. Findings most compatible with subchondral fractures. 3. Extensive subcutaneous edema throughout the visualized ankle and foot. Recommend clinical correlation for cellulitis. No organized drainable fluid collections are identified. 4. Small nonspecific tibiotalar, subtalar, and calcaneocuboid joint effusions. Small nonspecific effusion of the 1st metatarsophalangeal joint also identified. D/ / Orlando Lyles MD / Orlando Lyles MD Interpreting Provider: Orlando Lyles MD Consult Discharge Plan - Plan Referrals: NO,PCP [Primary Care Provider] - <Ellis Maurer H - Last Filed: 12/04/16 12:37> Date of Encounter: 12/04/16 - Constitutional Vitals: Temp Pulse Resp BP Pulse Ox 98.2 F 109 18 117/59 98 12/04/16 11:27 12/04/16 11:27 12/04/16 11:27 12/04/16 11:27 12/04/16 11:27 Internal Medicine: Result - Labs CBC & Chem 7: 07/23/17 02:38 12/04/16 02:38 Labs: Short CBC 12/04/16 Range/Units 02:38 WBC 12.7 H (4.3-11.1) K/mcL Hgb 9.8 L (12.9-16.9) g/dL Hct 30.7 L (37.5-50.1) % Plt Count 198 (140-400) K/mcL Neutrophils # 8.6 (1.6-8.9) K/mcL BMP 12/04/16 02:38 Sodium 140 Potassium 4.2 Chloride 108 Carbon Dioxide 24 BUN 19 Creatinine 1.56 H Glucose 70 Calcium 8.2 L - ABG Interpretation ABG results: PT/INR, D-dimer PT 17.1 Seconds (9.4-12.1) H 12/04/16 02:38 - Attending Attestation switch to unasyn I examined this patient and my medical decision-making was reviewed with the Resident Physician. I agree with the documented findings, disposition and treatment plan as described except to the extent set forth below.
--- NOTE | 2016-12-03 13:08 | Event Note ---
Date of Encounter: 12/03/16 Time of Encounter: 13:06 - Assessment and plan (1) Sepsis Current Visit: Yes Status: Acute Assessment and plan: Sepsis secondary to Streptococcus group B bacteremia from right foot ulcer/ cellulitis Discontinue vancomycin and Zosyn, start Unasyn Patient presents with WBC on admission is 16.6, HR was 99-107 bpm, and temperature in the ED was 102.2F. -Met sepsis criteria on admission. -Lactic acid was 1.7. -Blood cultures were positive for strep agalactiae and gram positive cocci. -IV vancomycin and IV Zosyn started in the ED. -Patient to be placed on continuous cardiac telemetry, supplemental O2 with continuous SPO2 monitoring, timed lactic acids, continuation of IV fluids at 150 mL/HR -Patient to be monitored closely for signs of increased cardiac and/or respiratory distress. -White count has improved since admission. White count is currently 10.9. Patient's temperature this morning was 98.1. Qualifiers: Sepsis type: sepsis due to unspecified organism Qualified Code(s): A41.9 - Sepsis, unspecified organism (2) SOB (shortness of breath) Current Visit: Yes Status: Acute Assessment and plan: Patient initially presented with shortness of breath. -This has since resolved. -DuoNebs ordered Q6 for SOB. (3) Diabetic foot ulcer Current Visit: Yes Status: Acute Assessment and plan: Patient presented with diabetic foot ulcer on his right foot. -Ulcer located on the bottom of his foot. -Area is red and edematous. -Podiatry was consulted. -Continue IV antibiotics. Qualifiers: Diabetic foot ulcer location: other Diabetes mellitus type: type 2 Laterality: right Non-pressure ulcer stage: limited to breakdown of skin Qualified Code(s): E11.621 - Type 2 diabetes mellitus with foot ulcer; L97.511 - Non-pressure chronic ulcer of other part of right foot limited to breakdown of skin (4) Diabetes Current Visit: Yes Status: Chronic Assessment and plan: Patient on Lantus. Repeat hemoglobin A1c. 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 Patient says that he is feeling much better since his initial admission. He denies having any fever , chills, shortness of breath, nausea or vomiting. Patient states that he would like to have his catheter removed, which she said was placed because at the time of his admission, he was unaware that it was being put in. He denies having any problems urinating under normal circumstances. Patient denies having any pain in his right foot where his ulcer is. Some ulcers located on the bottom of his foot. It is currently not wrapped. Podiatry has been to consult on this patient. He has no complaints at this time. - Constitutional Vitals: Temp Pulse Resp BP Pulse Ox 98.1 F 91 14 135/71 97 12/03/16 11:27 12/03/16 11:27 12/03/16 11:27 12/03/16 11:27 12/03/16 11:27 General appearance: Present: cooperative, mild distress, A&O X 3, morbidly obese , pleasant, answers questions appropriately - Head Head exam: Present: atraumatic, normocephalic - Neck Neck exam general surgery: Present: supple, trachea midline. Absent: lymphadenopathy - Respiratory Respiratory exam: Present: CTAB. Absent: accessory muscle use, rales, rhonchi, wheezes - Cardiovascular Cardiovascular exam: Present: RRR, +S1, +S2. Absent: diastolic murmur, gallop, rubs, systolic murmur - GI/Abdominal GI/Abdominal exam: Present: normal bowel sounds, soft, no peritoneal signs. Absent: distended, tenderness - Extremities Exam Extremities exam: Present: warm, radial pulses palpable and symetrical - Expanded Lower Extremities Exam Foot/Toe exam: Present: deformity (Patient has diabetic ulcer on the bottom of his right foot. It is nontender.) - Skin Skin exam: Present: dry, intact Internal Medicine: Result - Labs CBC & Chem 7: 12/03/16 05:47 12/03/16 05:47 Labs: Short CBC 12/03/16 Range/Units 05:47 WBC 10.9 (4.3-11.1) K/mcL Hgb 8.8 L (12.9-16.9) g/dL Hct 28.6 L (37.5-50.1) % Plt Count 169 (140-400) K/mcL Neutrophils # 8.9 (1.6-8.9) K/mcL BMP 12/03/16 05:47 Sodium 138 Potassium 3.9 D Chloride 107 Carbon Dioxide 26 BUN 19 Creatinine 1.47 H Glucose 92 Calcium 7.9 L D - ABG Interpretation ABG results: PT/INR, D-dimer PT 19.7 Seconds (9.4-12.1) H 12/03/16 05:47 - Impressions Impressions Foot MRI 12/02/16 17:46 IMPRESSION: 1. Destructive and disorganized appearance of the midfoot articulations with malalignment of the tarsometatarsal articulations. Findings most suggestive of Charcot arthropathy. Associated bone marrow edema noted throughout the metatarsal bases and tarsal bones. 2. Flattening of both the 2nd and 3rd metatarsal heads with mild associated edema within the 3rd metatarsal head. Findings most compatible with subchondral fractures. 3. Extensive subcutaneous edema throughout the visualized ankle and foot. Recommend clinical correlation for cellulitis. No organized drainable fluid collections are identified. 4. Small nonspecific tibiotalar, subtalar, and calcaneocuboid joint effusions. Small nonspecific effusion of the 1st metatarsophalangeal joint also identified. D/ / Orlando Lyles MD / Orlando Lyles MD Interpreting Provider: Orlando Lyles MD Consult Discharge Plan - Plan Referrals: NO,PCP [Primary Care Provider] -
[2016-12-03] MEDS: *HR* Enoxaparin 100 MG/ML SYRINGE SQ SCH ×2 (14:03→17:06)
[2016-12-03] MEDS: Ampicillin/Sulbactam 3,000 MG in 0.9 % Sodium Chloride Mini Bag 100 ML IVPB SCH ×2 (14:03→21:14)
[2016-12-03] MEDS: *HR* Warfarin 4 MG TABLET PO SCH (17:09)
[2016-12-03] MEDS: Gabapentin 100 MG CAPSULE PO SCH (21:13)
[2016-12-04] MEDS ORDERED: Furosemide 40 MG/4 ML VIAL IVP ONE (01:06)
[2016-12-04] MEDS: Ampicillin/Sulbactam 3,000 MG in 0.9 % Sodium Chloride Mini Bag 100 ML IVPB SCH ×4 (01:23→20:47)
--- NOTE | 2016-12-04 01:23 | Event Note ---
<Saul Coelho - Last Filed: 12/04/16 01:15> Date of Encounter: 12/04/16 Time of Encounter: 01:15 I spoke with the patient's nurse who notified me that the patient's heart rate was up to 140. Evaluating the panel monitor it looked irregular and so an EKG was obtained. EKG demonstrates atrial fibrillation with rapid ventricular rate. The patient denies any history of atrial fibrillation and there is no documentation of atrial fibrillation in our EMR. Evaluate his outpatient clinic records and they do not demonstrate any history of atrial fibrillation. The patient is asymptomatic he has not feeling chest pressure or any palpitations. He is currently on anticoagulation with Coumadin and bridging dose of Lovenox with a history of pulmonary embolism. His risk factors include morbid obesity, obstructive sleep apnea, hypertension, hyperlipidemia, pulmonary embolism, diabetes. He has risk factors for ACS but also known pulmonary embolism. Currently without chest pain, chest pressure or any other acute findings. He denies any acute change in his breathing. - CTA at the time of admission was without findings for pulmonary embolism. - He is also receiving IV fluids and his fluid balance is currently 5 L positive. -[id number] score: 5, currently on anticoagulation Plan - 40mg IV Lasix - Metoprolol 25 mg twice a day - Discontinue IV fluids - Currently anticoagulated. <Thomas Hudson - Last Filed: 12/04/16 02:29> Date of Encounter: 12/04/16 I have seen and examined the patient. I have discussed the patient with . I have reviewed the plan and orders. I agree with note and plan. Continue to monitor closely. May need Cardizem drip if heart rate is persistently above 120. Patient is currently anticoagulated on Lovenox and warfarin.
[2016-12-04 03:43] LABS: INR 1.6; Prothrombin Time 17.1 Seconds (9.4-12.1)
[2016-12-04 03:52] LABS: Calcium 8.2 mg/dL (8.6-10.8)
[2016-12-04] MEDS: Ipratropium/Albuterol Neb 3 ML IH SCH ×4 (04:03→22:10)
[2016-12-04 04:04] LABS: Basophils # 0.1 K/mcL (0.0-0.2); Basophils % 0.5 %; Eosinophils # 0.1 K/mcL (0.0-0.6); Hematocrit 30.7 % (37.5-50.1); Hemoglobin 9.8 g/dL (12.9-16.9); Immature Granulocytes % 0.4 % (0-4); Lymphocytes # 2.5 K/mcL (0.6-4.6); Lymphocytes % 19.9 %; Mean Corpuscular HGB Conc 31.9 g/dL (31.6-35.5); Mean Corpuscular Hemoglobin 28.4 pg (28.0-33.3); Mean Platelet Volume 12.1 fL (9.4-12.4); Monocytes # 1.4 K/mcL (0.0-1.3); Monocytes % 10.7 %; Neutrophils # 8.6 K/mcL (1.6-8.9); Platelet Count 198 K/mcL (140-400); Red Blood Count 3.45 M/mcL (4.19-5.50); Red Cell Distribution Width 15.4 % (11.5-14.5); Segmented Neutrophils % 67.5 %
[2016-12-04 04:05] LABS: Potassium 4.2 mEq/L (3.5-4.5)
[2016-12-04] MEDS: *HR* Enoxaparin 100 MG/ML SYRINGE SQ SCH ×2 (05:29→17:43)
[2016-12-04] MEDS: Insulin LISPRO 300 UNITS/3 ML VIAL SQ SCH ×4 (07:53→20:49)
[2016-12-04] MEDS: Insulin DETEMIR 100 UNIT/ML X5UNITS SQ SCH ×2 (07:55→20:47)
[2016-12-04] MEDS: Pantoprazole 40 MG VIAL IVP SCH (08:08)
[2016-12-04] MEDS: Furosemide 40 MG TABLET PO SCH (08:09)
[2016-12-04] MEDS: CARVEDILOL PHOSPHATE 80 MG PO SCH (08:10)
[2016-12-04] MEDS ORDERED: Perflutren Lipid Microsphere 1.3 ML in 0.9 % Sodium Chloride 8.7 ML IVP ONE (09:41)
--- NOTE | 2016-12-04 12:10 | Internal Med Progress Note ---
<Kyler Rodriguez - Last Filed: 12/04/16 12:50> Date of Encounter: 12/04/16 Time of Encounter: 10:45 - Assessment and plan (1) Sepsis Current Visit: Yes Status: Acute Assessment and plan: Sepsis secondary to diabetic foot ulcer -Patient presented with WBC on admission is 16.6, HR was 99-107 bpm, and temperature in the ED was 102.2F. -Met sepsis criteria on admission. -Lactic acid was 1.7. -Blood cultures were positive for strep agalactiae and gram positive cocci. -IV vancomycin and IV Zosyn started in the ED. -Patient was started on Unasyn on 12/03. -Patient to be placed on continuous cardiac telemetry, supplemental O2 with continuous SPO2 monitoring, timed lactic acids, continuation of IV fluids at 150 mL/HR -Patient to be monitored closely for signs of increased cardiac and/or respiratory distress. -White count has improved since admission. White count is currently 12.7. Patient's temperature this morning was 98.5. Qualifiers: Sepsis type: sepsis due to unspecified organism Qualified Code(s): A41.9 - Sepsis, unspecified organism (2) SOB (shortness of breath) Current Visit: Yes Status: Acute Assessment and plan: Patient initially presented with shortness of breath. -This has since resolved. -DuoNebs ordered Q6 for SOB. (3) Diabetic foot ulcer Current Visit: Yes Status: Acute Assessment and plan: Patient presented with diabetic foot ulcer on his right foot. -Ulcer located on the bottom of his foot. -Area is red and edematous. -Podiatry was consulted. -Continue IV antibiotics. Qualifiers: Diabetic foot ulcer location: other Diabetes mellitus type: type 2 Laterality: right Non-pressure ulcer stage: limited to breakdown of skin Qualified Code(s): E11.621 - Type 2 diabetes mellitus with foot ulcer; L97.511 - Non-pressure chronic ulcer of other part of right foot limited to breakdown of skin (4) Diabetes Current Visit: Yes Status: Chronic Assessment and plan: Patient on Lantus. Repeat hemoglobin A1c. 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 Was diagnosed with AFIB with RVR Home Coreg was not administered when patient was first admitted. Patient was initially placed on metoprolol 25 mg BID. Placed on Carvedilol 25 mg PO BID. (6) DVT prophylaxis Current Visit: Yes Status: Acute Assessment and plan: Patient is on lovenox. INR is 1.6 (7) History of pulmonary embolism Current Visit: Yes Status: Acute Assessment and plan: COntinue coumadin and lovenox, goal INR >2. - Subjective Interval history: Patient was seen and examined at bedside this afternoon. Patient states that his condition is relatively unchanged from yesterday. Last night, patient had atrial fibrillation with RVR. He denied having any chest pain, palpitation, or chest discomfort during this episode. He denies having this before. He denies having any pain on the bottom of his foot. He denies having fever, chills, nausea, vomiting, or shortness of breath. Patient has no complaints at this time. - Constitutional Vitals: Temp Pulse Resp BP Pulse Ox 98.2 F 109 18 117/59 98 12/04/16 11:27 12/04/16 11:27 12/04/16 11:27 12/04/16 11:27 12/04/16 11:27 General appearance: Present: cooperative, mild distress, A&O X 3, morbidly obese , pleasant, answers questions appropriately - Head Head exam: Present: atraumatic, normocephalic - Neck Neck exam general surgery: Present: supple, trachea midline. Absent: lymphadenopathy - Respiratory Respiratory exam: Present: CTAB. Absent: accessory muscle use, rales, rhonchi, wheezes - Cardiovascular Cardiovascular exam: Present: RRR, +S1, +S2. Absent: diastolic murmur, gallop, rubs, systolic murmur - Skin Skin exam: Present: dry, intact Internal Medicine: Result - Labs CBC & Chem 7: 12/04/16 02:38 12/04/16 02:38 Labs: Short CBC 12/04/16 Range/Units 02:38 WBC 12.7 H (4.3-11.1) K/mcL Hgb 9.8 L (12.9-16.9) g/dL Hct 30.7 L (37.5-50.1) % Plt Count 198 (140-400) K/mcL Neutrophils # 8.6 (1.6-8.9) K/mcL BMP 12/04/16 02:38 Sodium 140 Potassium 4.2 Chloride 108 Carbon Dioxide 24 BUN 19 Creatinine 1.56 H Glucose 70 Calcium 8.2 L - ABG Interpretation ABG results: PT/INR, D-dimer PT 17.1 Seconds (9.4-12.1) H 12/04/16 02:38 Consult Discharge Plan - Plan Referrals: NO,PCP [Primary Care Provider] - <Ellis Maurer H - Last Filed: 12/04/16 12:54> Date of Encounter: 12/04/16 - Constitutional Vitals: Temp Pulse Resp BP Pulse Ox 98.2 F 109 18 117/59 98 12/04/16 11:27 12/04/16 11:27 12/04/16 11:27 12/04/16 11:27 12/04/16 11:27 Internal Medicine: Result - Labs CBC & Chem 7: 12/04/16 02:38 12/04/16 02:38 Labs: Short CBC 12/04/16 Range/Units 02:38 WBC 12.7 H (4.3-11.1) K/mcL Hgb 9.8 L (12.9-16.9) g/dL Hct 30.7 L (37.5-50.1) % Plt Count 198 (140-400) K/mcL Neutrophils # 8.6 (1.6-8.9) K/mcL [facility] 12/04/16 02:38 Sodium 140 Potassium 4.2 Chloride 108 Carbon Dioxide 24 BUN 19 Creatinine 1.56 H Glucose 70 Calcium 8.2 L - ABG Interpretation ABG results: PT/INR, D-dimer PT 17.1 Seconds (9.4-12.1) H 12/04/16 02:38 - Attending Attestation Ampicillin and sulbactam day 2 New-onset A. fib with RVR, the patient takes already Coumadin for history of pulmonary emboli and DVT. Continue Coumadin, Lovenox added until INR is more than 2. Discharge planning for the morning if stable as he is a still tachycardic at the moment I examined this patient and my medical decision-making was reviewed with the Resident Physician. I agree with the documented findings, disposition and treatment plan as described except to the extent set forth below.
[2016-12-04] MEDS: Cholecalciferol (D-3) 1,000 UNIT TABLET PO SCH (13:00)
[2016-12-04] MEDS: *HR* Warfarin 4 MG TABLET PO SCH (17:43)
[2016-12-04] MEDS: Gabapentin 100 MG CAPSULE PO SCH (20:46)
[2016-12-05] MEDS: Acetaminophen 325 MG TABLET PO PRN (00:42)
[2016-12-05] MEDS: Ampicillin/Sulbactam 3,000 MG in 0.9 % Sodium Chloride Mini Bag 100 ML IVPB SCH ×4 (00:42→21:33)
[2016-12-05] MEDS: Ipratropium/Albuterol Neb 3 ML IH SCH ×2 (03:30→10:43)
[2016-12-05 05:18] LABS: Hematocrit 27.2 % (37.5-50.1); Hemoglobin 8.6 g/dL (12.9-16.9); Mean Corpuscular Hemoglobin 27.9 pg (28.0-33.3); Mean Corpuscular Volume 88.3 fL (83.0-100.0); Red Blood Count 3.08 M/mcL (4.19-5.50)
[2016-12-05 05:19] LABS: Basophils % 0.4 %; Eosinophils # 0.2 K/mcL (0.0-0.6); Immature Granulocytes % 0.4 % (0-4); Lymphocytes # 2.7 K/mcL (0.6-4.6); Lymphocytes % 23.4 %; Mean Corpuscular HGB Conc 31.6 g/dL (31.6-35.5); Mean Platelet Volume 11.5 fL (9.4-12.4); Monocytes # 1.4 K/mcL (0.0-1.3); Monocytes % 12.1 %; Platelet Count 194 K/mcL (140-400); Red Cell Distribution Width 15.2 % (11.5-14.5); Segmented Neutrophils % 61.7 %
[2016-12-05 05:23] LABS: Prothrombin Time 22.3 Seconds (9.4-12.1)
[2016-12-05 05:33] LABS: Calcium 8.3 mg/dL (8.6-10.8); Potassium 3.7 mEq/L (3.5-4.5)
[2016-12-05] MEDS: *HR* Enoxaparin 100 MG/ML SYRINGE SQ SCH ×2 (07:00→17:30)
[2016-12-05] MEDS: Insulin LISPRO 300 UNITS/3 ML VIAL SQ SCH ×4 (07:43→21:34)
[2016-12-05] MEDS: Furosemide 40 MG TABLET PO SCH (07:58)
[2016-12-05] MEDS: Pantoprazole 40 MG VIAL IVP SCH (07:59)
[2016-12-05] MEDS: CARVEDILOL PHOSPHATE 80 MG PO SCH (07:59)
[2016-12-05] MEDS: Insulin DETEMIR 100 UNIT/ML X5UNITS SQ SCH ×2 (08:43→21:32)
[2016-12-05] MEDS ORDERED: Aminoglycoside Consult 1 EACH MC ONE (09:53)
--- NOTE | 2016-12-05 10:24 | Internal Med Progress Note ---
<Kylre Rodriguez - Last Filed: 12/05/16 10:20> Date of Encounter: 12/05/16 Time of Encounter: 09:45 - Assessment and plan (1) Sepsis Current Visit: Yes Status: Acute Assessment and plan: Sepsis secondary to diabetic foot ulcer -Patient presented with WBC on admission is 16.6, HR was 99-107 bpm, and temperature in the ED was 102.2F. -Met sepsis criteria on admission. -Lactic acid was 1.7. -Blood cultures were positive for strep agalactiae and gram positive cocci. -IV vancomycin and IV Zosyn started in the ED. -Patient was started on Unasyn on 12/03. -Patient to be placed on continuous cardiac telemetry, supplemental O2 with continuous SPO2 monitoring, timed lactic acids, continuation of IV fluids at 150 mL/HR -Patient to be monitored closely for signs of increased cardiac and/or respiratory distress. -White count has improved since admission. White count is currently 11.6. -Last night, patient's temperature elevated to 101.4. This elevated temperature short-lived, the patient's temperature this morning was 98.7. Repeat blood culture will be ordered. Qualifiers: Sepsis type: sepsis due to unspecified organism Qualified Code(s): A41.9 - Sepsis, unspecified organism (2) SOB (shortness of breath) Current Visit: Yes Status: Acute Assessment and plan: Patient initially presented with shortness of breath. -This has since resolved. -DuoNebs ordered Q6 for SOB. (3) Diabetic foot ulcer Current Visit: Yes Status: Acute Assessment and plan: Patient presented with diabetic foot ulcer on his right foot. -Ulcer located on the bottom of his foot. -Area is red and edematous. -Continue IV antibiotics. Qualifiers: Diabetic foot ulcer location: other Diabetes mellitus type: type 2 Laterality: right Non-pressure ulcer stage: limited to breakdown of skin Qualified Code(s): E11.621 - Type 2 diabetes mellitus with foot ulcer; L97.511 - Non-pressure chronic ulcer of other part of right foot limited to breakdown of skin (4) Diabetes Current Visit: Yes Status: Chronic Assessment and plan: Patient on Lantus. Repeat hemoglobin A1c. 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 Was diagnosed with AFIB with RVR Home Coreg was not administered when patient was first admitted. Patient was initially placed on metoprolol 25 mg BID. Placed on Carvedilol 25 mg PO BID. (6) DVT prophylaxis Current Visit: Yes Status: Acute Assessment and plan: Patient is on lovenox. INR is 1.6 (7) History of pulmonary embolism Current Visit: Yes Status: Acute Assessment and plan: COntinue coumadin and lovenox, goal INR >2. - Subjective Interval history: Patient was seen and examined at bedside this morning. He states that last night, he experienced an elevated temperature, and felt like he had chills. He said that this was very short lived, and that only lasted a couple hours. This morning patient's temperature is 98.7. Last night it went as high as 101.7. Since then, his chills have resolved. He denies having any pain on the bottom of his foot. He denies having fever, chills, nausea, vomiting, or shortness of breath. Patient has no other complaints at this time. - Constitutional Vitals: Temp Pulse Resp BP Pulse Ox 98.7 F 97 18 131/69 97 12/05/16 06:40 12/05/16 06:40 12/05/16 06:40 12/05/16 06:40 12/05/16 08:06 General appearance: Present: cooperative, morbidly obese, pleasant, answers questions appropriately - Head Head exam: Present: atraumatic, normocephalic - Neck Neck exam general surgery: Present: supple, trachea midline. Absent: lymphadenopathy - Respiratory Respiratory exam: Present: CTAB. Absent: accessory muscle use, rales, rhonchi, wheezes - Cardiovascular Cardiovascular exam: Present: RRR, +S1, +S2. Absent: diastolic murmur, gallop, rubs, systolic murmur - GI/Abdominal GI/Abdominal exam: Present: normal bowel sounds, soft, no peritoneal signs. Absent: distended, tenderness - Extremities Exam Extremities exam: Present: pedal edema Additional comments: Bilateral swelling present in lower extremities. - Skin Skin exam: Present: dry, intact Internal Medicine: Result - Labs CBC & Chem 7: 12/05/16 04:41 12/05/16 04:31 Labs: Short CBC 12/05/16 Range/Units 04:41 WBC 11.4 H (4.3-11.1) K/mcL Hgb 8.6 L (12.9-16.9) g/dL Hct 27.2 L (37.5-50.1) % Plt Count 194 (140-400) K/mcL Neutrophils # 7.0 (1.6-8.9) K/mcL BMP 12/05/16 04:31 Sodium 141 Potassium 3.7 Chloride 107 Carbon Dioxide 27 BUN 21 Creatinine 1.66 H Glucose 109 H Calcium 8.3 L - ABG Interpretation ABG results: PT/INR, D-dimer PT 22.3 Seconds (9.4-12.1) H 12/05/16 04:41 Consult Discharge Plan - Plan Referrals: NO,PCP [Primary Care Provider] - <Ellis Maurer H - Last Filed: 12/05/16 10:45> Date of Encounter: 12/05/16 - Constitutional Vitals: Temp Pulse Resp BP Pulse Ox 98.5 F 93 18 128/86 94 12/05/16 10:33 12/05/16 10:33 12/05/16 10:33 12/05/16 10:33 12/05/16 10:33 Internal Medicine: Result - Labs CBC & Chem 7: 12/05/16 04:41 12/05/16 04:31 Labs: Short CBC 12/05/16 Range/Units 04:41 WBC 11.4 H (4.3-11.1) K/mcL Hgb 8.6 L (12.9-16.9) g/dL Hct 27.2 L (37.5-50.1) % Plt Count 194 (140-400) K/mcL Neutrophils # 7.0 (1.6-8.9) K/mcL BMP 12/05/16 04:31 Sodium 141 Potassium 3.7 Chloride 107 Carbon Dioxide 27 BUN 21 Creatinine 1.66 H Glucose 109 H Calcium 8.3 L - ABG Interpretation ABG results: PT/INR, D-dimer PT 22.3 Seconds (9.4-12.1) H 12/05/16 04:41 - Attending Attestation Ampicillin and sulbactam day 3 Still spiking fevers of 101, replete cultures New-onset A. fib with RVR, the patient takes already Coumadin for history of pulmonary emboli and DVT. Continue Coumadin, may discontinue Lovenox as INR is more than 2. Discharge planning for the morning if stable as he is a still tachycardic at the moment I examined this patient and my medical decision-making was reviewed with the Resident Physician. I agree with the documented findings, disposition and treatment plan as described except to the extent set forth below.
[2016-12-05] MEDS: Cholecalciferol (D-3) 1,000 UNIT TABLET PO SCH (12:12)
--- NOTE | 2016-12-05 14:31 | Electrocardiograph Report ---
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
[2016-12-05] MEDS ORDERED: Ipratropium/Albuterol Neb 3 ML IH PRN (14:39)
[2016-12-05] MEDS: *HR* Warfarin 10 MG TABLET PO SCH (17:29)
[2016-12-05] MEDS: Gabapentin 100 MG CAPSULE PO SCH (21:33)
[2016-12-05] MEDS ORDERED: Budesonide/Formoterol 80/4.5 MDI IH SCH (22:00)
[2016-12-06] MEDS: Ampicillin/Sulbactam 3,000 MG in 0.9 % Sodium Chloride Mini Bag 100 ML IVPB SCH ×4 (01:54→18:29)
[2016-12-06] MEDS: *HR* Enoxaparin 100 MG/ML SYRINGE SQ SCH (05:33)
[2016-12-06 08:00] LABS: Basophils # 0.1 K/mcL (0.0-0.2); Basophils % 0.5 %; Eosinophils # 0.7 K/mcL (0.0-0.6); Hematocrit 27.2 % (37.5-50.1); Hemoglobin 8.4 g/dL (12.9-16.9); Immature Granulocytes % 0.5 % (0-4); Lymphocytes # 2.6 K/mcL (0.6-4.6); Lymphocytes % 26.9 %; Mean Corpuscular HGB Conc 30.9 g/dL (31.6-35.5); Mean Corpuscular Hemoglobin 27.3 pg (28.0-33.3); Mean Corpuscular Volume 88.3 fL (83.0-100.0); Mean Platelet Volume 11.2 fL (9.4-12.4); Monocytes # 1.2 K/mcL (0.0-1.3); Monocytes % 11.8 %; Neutrophils # 5.2 K/mcL (1.6-8.9); Platelet Count 213 K/mcL (140-400); Red Blood Count 3.08 M/mcL (4.19-5.50); Segmented Neutrophils % 53.3 %
[2016-12-06 08:02] LABS: INR 2.1; Prothrombin Time 23.3 Seconds (9.4-12.1)
[2016-12-06] MEDS: Furosemide 40 MG TABLET PO SCH (08:10)
[2016-12-06] MEDS: Insulin LISPRO 300 UNITS/3 ML VIAL SQ SCH ×4 (08:15→20:37)
[2016-12-06] MEDS: Insulin DETEMIR 100 UNIT/ML X5UNITS SQ SCH ×2 (08:16→20:44)
--- NOTE | 2016-12-06 11:41 | Internal Med Progress Note ---
<Kyler Rodriguez - Last Filed: 12/06/16 11:38> Date of Encounter: 12/06/16 Time of Encounter: 10:00 - Assessment and plan (1) Sepsis Current Visit: Yes Status: Acute Assessment and plan: Sepsis secondary to diabetic foot ulcer -Patient presented with WBC on admission is 16.6, HR was 99-107 bpm, and temperature in the ED was 102.2F. -Met sepsis criteria on admission. -Lactic acid was 1.7. -Blood cultures were positive for strep agalactiae and gram positive cocci. -IV vancomycin and IV Zosyn started in the ED. -Patient was started on Unasyn on 12/03. -Patient to be placed on continuous cardiac telemetry, supplemental O2 with continuous SPO2 monitoring, timed lactic acids, continuation of IV fluids at 150 mL/HR -Patient to be monitored closely for signs of increased cardiac and/or respiratory distress. -White count has improved since admission. Qualifiers: Sepsis type: sepsis due to unspecified organism Qualified Code(s): A41.9 - Sepsis, unspecified organism (2) SOB (shortness of breath) Current Visit: Yes Status: Acute Assessment and plan: Patient initially presented with shortness of breath. -This has since resolved. -DuoNebs ordered Q6 for SOB. (3) Diabetic foot ulcer Current Visit: Yes Status: Acute Assessment and plan: Patient presented with diabetic foot ulcer on his right foot. -Ulcer located on the bottom of his foot. -Area is red and edematous. -Continue IV antibiotics. Qualifiers: Diabetic foot ulcer location: other Diabetes mellitus type: type 2 Laterality: right Non-pressure ulcer stage: limited to breakdown of skin Qualified Code(s): E11.621 - Type 2 diabetes mellitus with foot ulcer; L97.511 - Non-pressure chronic ulcer of other part of right foot limited to breakdown of skin (4) Diabetes Current Visit: Yes Status: Chronic Assessment and plan: Patient on Lantus. Repeat hemoglobin A1c. Qualifiers: Diabetes mellitus type: type 2 Diabetes mellitus complication status: with circulatory complication Diabetes mellitus complication detail: with other circulatory complications Diabetes mellitus correction insulin use: with correction use Qualified Code(s): E11.59 - Type 2 diabetes mellitus with other circulatory complications; Z79.4 - preparator (current) use of insulin (5) Atrial fibrillation with RVR Current Visit: Yes Status: Acute Assessment and plan: Patient's heart rate went up to 140 bpm 3 days ago. Was diagnosed with AFIB with RVR Home Coreg was not administered when patient was first admitted. Patient was initially placed on metoprolol 25 mg BID. Placed on Carvedilol 25 mg PO BID. (6) DVT prophylaxis Current Visit: Yes Status: Acute Assessment and plan: Patient is on lovenox. INR is 1.6 (7) History of pulmonary embolism Current Visit: Yes Status: Acute Assessment and plan: COntinue coumadin and lovenox, goal INR >2. - Subjective Interval history: Patient was seen and examined at bedside this morning. He states that he is feeling well. He denies having any fevers. He denies having any pain on the bottom of his foot. He denies having fever, chills, nausea, vomiting, or shortness of breath. Patient has no other complaints at this time. - Constitutional Vitals: Temp Pulse Resp BP Pulse Ox 98.3 F 81 19 123/71 95 12/06/16 11:08 12/06/16 11:08 12/06/16 11:08 12/06/16 11:08 12/06/16 11:08 General appearance: Present: cooperative, morbidly obese, pleasant, answers questions appropriately - Head Head exam: Present: atraumatic, normocephalic - Neck Neck exam general surgery: Present: supple, trachea midline. Absent: lymphadenopathy - Respiratory Respiratory exam: Present: CTAB. Absent: accessory muscle use, rales, rhonchi, wheezes - Cardiovascular Cardiovascular exam: Present: RRR, +S1, +S2. Absent: diastolic murmur, gallop, rubs, systolic murmur - GI/Abdominal GI/Abdominal exam: Present: normal bowel sounds, soft, no peritoneal signs. Absent: distended, tenderness - Extremities Exam Extremities exam: Present: pedal edema. Absent: calf tenderness, cyanotic - Skin Skin exam: Present: dry, intact Internal Medicine: Result - Labs CBC & Chem 7: 12/06/16 07:14 12/05/16 04:31 Labs: Short CBC 12/06/16 Range/Units 07:14 WBC 9.7 (4.3-11.1) K/mcL Hgb 8.4 L (12.9-16.9) g/dL Hct 27.2 L (37.5-50.1) % Plt Count 213 (140-400) K/mcL Neutrophils # 5.2 (1.6-8.9) K/mcL - ABG Interpretation ABG results: PT/INR, D-dimer PT 23.3 Seconds (9.4-12.1) H 12/06/16 07:14 - VTE Documentation of Mechanical Device: Intermittent pneumatic compression device Consult Discharge Plan - Plan Referrals: Curt Sainz MD [Non-Partnered Physician] - 12/13/16 4:00 pm (Please follow up as schedule...) <Mickey Manjarrez - Last Filed: 12/06/16 18:33> Date of Encounter: 12/06/16 - Assessment and plan (1) Sepsis Current Visit: Yes Status: Acute Qualifiers: Sepsis type: Streptococcus group B Qualified Code(s): A40.1 - Sepsis due to streptococcus, group B (2) Diabetic foot ulcer Current Visit: Yes Status: Acute Qualifiers: Diabetic foot ulcer location: other Diabetes mellitus type: type 2 Laterality: right Non-pressure ulcer stage: limited to breakdown of skin Qualified Code(s): E11.621 - Type 2 diabetes mellitus with foot ulcer; L97.511 - Non-pressure chronic ulcer of other part of right foot limited to breakdown of skin (3) Diabetes Current Visit: Yes Status: Chronic Qualifiers: Diabetes mellitus type: type 2 Diabetes mellitus complication status: with circulatory complication Diabetes mellitus complication detail: with other circulatory complications 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: with correction use Qualified Code(s): E11.59 - Type 2 diabetes mellitus with other circulatory complications; Z79.4 - preparator (current) use of insulin (4) HLD (hyperlipidemia) Current Visit: Yes Status: Chronic Qualifiers: Hyperlipidemia type: mixed hyperlipidemia Qualified Code(s): E78.2 - Mixed hyperlipidemia (5) HTN (hypertension) Current Visit: Yes Status: Chronic Qualifiers: Hypertension type: essential hypertension Qualified Code(s): I10 - Essential (primary) hypertension (6) Morbid obesity with BMI of 50.0-59.9, adult Current Visit: Yes Status: Acute - Constitutional Vitals: Temp Pulse Resp BP Pulse Ox 98.1 F 80 19 116/63 98 12/06/16 16:13 12/06/16 16:13 12/06/16 16:13 12/06/16 16:13 12/06/16 16:13 Internal Medicine: Result - Labs CBC & Chem 7: 12/06/16 07:14 12/06/16 07:14 Labs: Short CBC 12/06/16 Range/Units 07:14 WBC 9.7 (4.3-11.1) K/mcL Hgb 8.4 L (12.9-16.9) g/dL Hct 27.2 L (37.5-50.1) % Plt Count 213 (140-400) K/mcL Neutrophils # 5.2 (1.6-8.9) K/mcL BMP 12/06/16 07:14 Sodium 141 Potassium 3.6 Chloride 108 Carbon Dioxide 24 BUN 22 Creatinine 1.55 H Glucose 55 L Calcium 8.4 L - ABG Interpretation ABG results: PT/INR, D-dimer PT 23.3 Seconds (9.4-12.1) H 12/06/16 07:14 - Attending Attestation I examined this patient and my medical decision-making was reviewed with the Resident Physician on 12/06/16. I agree with the documented findings, disposition and treatment plan as described except to the extent set forth below. Mr. Jones is currently admitted for sepsis related to diabetic foot ulcer. He remains moderate to high risk due to potential for worsening infectious status. Mr. Jones feels OK at this time. Pain is controlled. No fever or chills. No GI symptoms. Overall feels ready to go home. Exam Alert. Comfortable Mucus membranes dry Heart reg No wheeze Abd soft I/P 1. Group B strep sepsis/bacteremia - recheck blood cx 2. Diabetic foot ulcer 3. Morbid obesity Further diagnoses and plan as above.
[2016-12-06 12:35] LABS: Calcium 8.4 mg/dL (8.6-10.8); Potassium 3.6 mEq/L (3.5-4.5)
[2016-12-06] MEDS: Cholecalciferol (D-3) 1,000 UNIT TABLET PO SCH (12:44)
[2016-12-06] MEDS: *HR* Warfarin 4 MG TABLET PO SCH (18:30)
[2016-12-06] MEDS ORDERED: Insulin DETEMIR 100 UNIT/ML X5UNITS SQ ONE (20:42)
[2016-12-06] MEDS: Gabapentin 100 MG CAPSULE PO SCH (21:29)
[2016-12-07] MEDS: Ampicillin/Sulbactam 3,000 MG in 0.9 % Sodium Chloride Mini Bag 100 ML IVPB SCH ×3 (00:27→11:38)
[2016-12-07 05:39] LABS: INR 1.9; Prothrombin Time 21.1 Seconds (9.4-12.1)
[2016-12-07] MEDS: Insulin LISPRO 300 UNITS/3 ML VIAL SQ SCH ×3 (08:20→11:46)
[2016-12-07] MEDS: Furosemide 40 MG TABLET PO SCH (08:22)
[2016-12-07 11:38] VITALS: BP 138/32
[2016-12-07] MEDS: Cholecalciferol (D-3) 1,000 UNIT TABLET PO SCH (11:46)
[2016-12-07] MEDS: Insulin DETEMIR 100 UNIT/ML X5UNITS SQ SCH (11:47)
--- NOTE | 2016-12-07 14:55 | Discharge Summary ---
<Kyler Rodriguez - Last Filed: 12/07/16 14:50> Date of Encounter: 12/07/16 Time of Encounter: 10:50 - Discharge Diagnosis (1) Sepsis Priority: Primary Status: Acute Comments: Sepsis secondary to diabetic foot ulcer -Patient presented with WBC on admission is 16.6, HR was 99-107 bpm, and temperature in the ED was 102.2F. -Met sepsis criteria on admission. -Lactic acid was 1.7. -Blood cultures were positive for strep agalactiae and gram positive cocci. -IV vancomycin and IV Zosyn started in the ED. -Patient was started on Unasyn on 12/03. -White count has improved since admission. -Repeat blood culture was negative. -Patient will be placed on 500 mg Ampicillin QID for 10 days. Qualifiers: Sepsis type: Streptococcus group B Qualified Code(s): A40.1 - Sepsis due to streptococcus, group B (2) SOB (shortness of breath) Priority: Secondary Status: Acute Comments: Patient initially presented with shortness of breath. -This has since resolved. -DuoNebs ordered Q6 for SOB. (3) Diabetic foot ulcer Priority: Secondary Status: Acute Comments: Patient presented with diabetic foot ulcer on his right foot. -Ulcer located on the bottom of his foot. -Will be placed on Ampicillin 500 mg PO QID. Qualifiers: Diabetic foot ulcer location: other Diabetes mellitus type: type 2 Laterality: right Non-pressure ulcer stage: limited to breakdown of skin Qualified Code(s): E11.621 - Type 2 diabetes mellitus with foot ulcer; L97.511 - Non-pressure chronic ulcer of other part of right foot limited to breakdown of skin (4) Diabetes Priority: Secondary Status: Chronic Comments: Patient on Lantus. Qualifiers: Diabetes mellitus type: type 2 Diabetes mellitus complication status: with circulatory complication Diabetes mellitus complication detail: with other circulatory complications Diabetes mellitus exterminator helper insulin use: with residential use Qualified Code(s): E11.59 - Type 2 diabetes mellitus with other circulatory complications; Z79.4 - senior living (current) use of insulin (5) Atrial fibrillation with RVR Priority: Secondary Status: Acute Comments: Placed on Carvedilol 25 mg PO BID. (6) DVT prophylaxis Priority: Secondary Status: Acute Comments: Patient is on lovenox. INR is 1.6 (7) History of pulmonary embolism Priority: Secondary Status: Acute Comments: Continue coumadin and lovenox, goal INR >2. - Discharge Medications Prescriptions: Ampicillin Trihydrate 500 mg PO QID #40 capsule Home Medications: Acetaminophen [Tylenol] 500 mg PO HS 12/02/16 [History] Carvedilol Phosphate [Coreg Cr] 80 mg PO DAILY 12/02/16 [History] Clobetasol Propionate [Temovate] 1 appl TP BID PRN 12/02/16 [History] Ergocalciferol (VITAMIN D2) [Vitamin D2] 50,000 unit PO QWEEK 12/02/16 [History] Famotidine/Ca Carb/Mag Hydrox [Pepcid Complete Tablet Chew] 1 each PO DAILY PRN 12/02/16 [History] Fluticasone/Salmeterol [Advair 250-50 Diskus] 1 each IH BID PRN 12/02/16 [ History] Furosemide [Lasix] 40 mg PO DAILY 12/02/16 [History] Gabapentin [Neurontin] 100 mg PO HS 12/02/16 [History] Insulin Glargine,Hum.rec.anlog [Lantus Solostar] 46 units SQ BID 12/02/16 [ History] Lisinopril [Lisinopril] 2.5 mg PO DAILY 12/02/16 [History] Metformin HCl [Glucophage] 1,000 mg PO BID 12/02/16 [History] Pentoxifylline [Pentoxifylline] 400 mg PO BID 12/02/16 [History] Potassium Chloride 20 meq PO DAILY 12/02/16 [History] Pramipexole [Mirapex] 0.25 mg PO BID 12/02/16 [History] Simvastatin [Zocor] 20 mg PO DAILY 12/02/16 [History] Triamcinolone Acet 0.1% CRM [Kenalog] 1 appl TP BID PRN 12/02/16 [History] Warfarin [Coumadin] 8 mg PO SUTUWETHSA 12/02/16 [History] Warfarin [Coumadin] 10 mg PO MOFR 12/02/16 [History] Ampicillin Trihydrate 500 mg PO QID #40 capsule 12/07/16 [Rx] Allergies/Adverse Reactions: Allergies peanut Allergy (Verified 12/02/16 11:25) Anaphylaxis cephalexin [From Keflex] Adverse Reaction (Verified 12/02/16 11:25) Rash levofloxacin Adverse Reaction (Verified 12/02/16 11:25) Rash Sulfa (Sulfonamide Antibiotics) Adverse Reaction (Verified 12/02/16 11:25) Rash Date of admission: 12/02/16 12:25 Primary care physician: PCP NO Consults: 12/02/16 12:40 Consult to Process Server [CONS] Routine Comment: Reason for Consult: Patient has uncontrolled diabetes and is experiencing diabetic wounds consult to pricing specialist [Consult to Nutrition] [CONS] Routine Comment: Consulting Provider: NUTRITION Reason for Dietary Consult: Diet Education Discharging clinician: Kyler Rodriguez Anticipated date of discharge: 12/07/16 - Patient Status Disposition: Home, Self-Care Condition: Good Overall status at discharge: patient is progressing back to baseline - Discharge Instructions Instructions: Atrial Fibrillation (DC), Diabetic Foot Care (DC), Sepsis (DC) Follow Up With: Curt Sainz MD [Non-Partnered Physician] - 12/13/16 4:00 pm (Please follow up as schedule...) Hospital course: Mr. Jones is a 51 year old male with a past medical history of T2DM, high cholesterol, hypertension who presented to the ED for fever and chills with one episode of vomiting. He statesd the symptoms felt similar to an episode of nausea, vomiting, and fever that he had a few years ago that was related to infection caused by his diabetic foot ulcer. He has a healing foot ulcer on his plantar aspect of his right foot near the arch. On presentation to hospital , the wound had no discharge, swelling, or pain. He also did not take his Coreg the morning of admission due to his nausea and vomiting. He denied any chest pain, he did have some shortness of breath with a non-productive cough. Denied any recent sick contacts. Patient's WBC on admission was 16.6, HR was 99- 107 bpm, and temperature in the ED was 102.2F. Met septic criteria. Initial lactic acid was 1.7. Patient placed on sepsis protocol with IV vancomycin and IV Zosyn started in the ED. Continued IV vancomycin with pharmacy dosing and IV Zosyn 3.375 gm Q8. Patient placed on continuous cardiac telemetry, supplemental O2 with continuous SPO2 monitoring, timed lactic acids, continuation of IV fluids at 150 mL/HR, follow-up labs, blood cultures x2, and safety precautions due to pain with ambulation. Was seen by podiatry. X-ray and MRI were done of the foot. Neither of them showed any signs of osteomyelitis. Blood cultures were drawn. Cultures are positive for strep agalactiae and gram-positive cocci. During stay in the hospital, patient's white count gradually decreased. After cultures came back, patient's clindamycin and Zosyn were discontinued, was replaced with Unasyn. On 12/04/16, patient's heart rate increased up to 140. EKG showed irregular rhythm. Patient was diagnosed with atrial fibrillation with rapid ventricular rate. Patient had not been on his Coreg. Coreg was restarted, and patient's heart rate decreased. After this episode, patient did not have an elevated heart rate. The next day, at approximately 3 AM, patient's temperature went up to 101.4. This was very brief. This only lasted for a couple of hours. Repeat blood cultures were drawn. Subsequent cultures were negative. On date of discharge, patient's white blood cell count has decreased to 9.7. Patient's temperature is 97.6, his blood pressure is 120/ 74, and his pulse is 88 bpm. Will be sent home on 500 mg ampicillin by mouth 4 times a day for 10 days. - Time Spent with Patient Total time spent providing and/or coordinating discharge services: Greater than 30 minutes (42 minutes) - Constitutional Vitals: Temp Pulse Resp BP Pulse Ox 98.3 F 80 16 138/32 94 12/07/16 11:17 12/07/16 11:17 12/07/16 11:17 12/07/16 11:17 12/07/16 11:17 General appearance: Present: cooperative, morbidly obese, pleasant, answers questions appropriately - Neck Neck exam general surgery: Present: supple, trachea midline. Absent: lymphadenopathy - Respiratory Respiratory exam: Present: CTAB. Absent: accessory muscle use, rales, rhonchi, wheezes - Cardiovascular Cardiovascular exam: Present: RRR, +S1, +S2. Absent: diastolic murmur, gallop, rubs, systolic murmur - Extremities Exam Extremities exam: Present: pedal edema - Psychiatric Psychiatric exam: Present: normal affect, normal mood - VTE Documentation of Mechanical Device: Graduated compression elastic hosiery <Mickey Manjarrez - Last Filed: 12/07/16 19:01> Date of Encounter: 12/07/16 - Discharge Diagnosis (1) Sepsis Status: Acute Qualifiers: Sepsis type: Streptococcus group B Qualified Code(s): A40.1 - Sepsis due to streptococcus, group B (2) Diabetic foot ulcer Status: Acute Qualifiers: Diabetic foot ulcer location: other Diabetes mellitus type: type 2 Laterality: right Non-pressure ulcer stage: limited to breakdown of skin Qualified Code(s): E11.621 - Type 2 diabetes mellitus with foot ulcer; L97.511 - Non-pressure chronic ulcer of other part of right foot limited to breakdown of skin (3) Diabetes Status: Chronic Qualifiers: Diabetes mellitus type: type 2 Diabetes mellitus complication status: with circulatory complication Diabetes mellitus complication detail: with other circulatory complications Diabetes mellitus residential insulin use: with exterminator helper use Qualified Code(s): E11.59 - Type 2 diabetes mellitus with other circulatory complications; Z79.4 - terminal operations manager (current) use of insulin (4) HLD (hyperlipidemia) Priority: Secondary Status: Chronic Qualifiers: Hyperlipidemia type: mixed hyperlipidemia Qualified Code(s): E78.2 - Mixed hyperlipidemia (5) HTN (hypertension) Priority: Secondary Status: Chronic Qualifiers: Hypertension type: essential hypertension Qualified Code(s): I10 - Essential (primary) hypertension (6) Morbid obesity with BMI of 50.0-59.9, adult Priority: Secondary Status: Acute Date of admission: 12/02/16 12:25 Primary care physician: PCP NO Consults: 12/02/16 12:40 Consult to Process Server [CONS] Routine Comment: Reason for Consult: Patient has uncontrolled diabetes and is experiencing diabetic wounds consult to pricing specialist [Consult to Nutrition] [CONS] Routine Comment: Consulting Provider: NUTRITION Reason for Dietary Consult: Diet Education Hospital course: Mr. Jones is a 51 year old male - Time Spent with Patient Total time spent providing and/or coordinating discharge services: 38min - Constitutional Vitals: Temp Pulse Resp BP Pulse Ox 98.3 F 80 16 138/32 94 12/07/16 11:17 12/07/16 11:17 12/07/16 11:17 12/07/16 11:17 12/07/16 11:17 - Attending Attestation I examined this patient and my medical decision-making was reviewed with the Resident Physician on 12/07/16. I agree with the documented findings, disposition and treatment plan as described except to the extent set forth below. Mr. Jones had been hospitalized for sepsis related to group B strep from foot ulcer. His repeat blood cx are negative. He is now afebrile with stable cultures and ready for discharge home. Exam Alert. Comfortable Mucus membranes moist Heart reg No wheeze Abd soft Plan D/C home today on PO abx to complete 14 days. Follow up with PCP and podiatry.
[2016-12-07] MEDS ORDERED: *HR* Warfarin 3 MG TABLET PO SCH (18:00)
== END 2016-12-07 16:05 | disposition home or self-care (01) | DRG 872 ==
LOC: EMEROO 07:25 → 2ANU 07:25 → SUATTDRO 12:25 → 2ANU 12:56
PROVIDERS: ADMIT Internal Medicine; ATTEND Internal Medicine

== ENCOUNTER 2017-11-09 11:41 | Inpatient (IN) ==
--- NOTE | 2017-11-09 11:56 | Emergency Department Note ---
Disposition Clinical Impression: Edema Cellulitis Qualifiers: Site of cellulitis: extremity Site of cellulitis of extremity: lower extremity Laterality: unspecified laterality Qualified Code(s): L03.119 - Cellulitis of unspecified part of limb Disposition: Admitted As Inpatient Condition: Good Time of Disposition: 12:58 Weakness HPI - General Chief complaint: ED General Medical Stated complaint: Weakness Time Seen by Provider: 11/09/17 11:49 Source: EMS Limitations: no limitations Nursing Notes Reviewed: Yes Vital Signs Reviewed: Yes (slight tachycardia) - History of Present Illness Pt Subjective Complaint: generalized weakness/fatigue Onset (ago): hour(s) (felt fine yesterday) Duration: constant Location: generalized Migration: none Pain Severity: none Pain Scale: 0 - Related Data Home Medications Medication Instructions Recorded Confirmed Acetaminophen [Tylenol] 500 mg PO HS 12/02/16 11/09/17 Carvedilol Phosphate [Coreg Cr] 80 mg PO DAILY 12/02/16 11/09/17 Clobetasol Propionate [Temovate] 1 appl TP BID PRN 12/02/16 11/09/17 Ergocalciferol (VITAMIN D2) 50,000 unit PO QWEEK 12/02/16 11/09/17 [Vitamin D2] Fluticasone/Salmeterol [Advair 1 each IH BID PRN 12/02/16 11/09/17 250-50 Diskus] Furosemide [Lasix] 40 mg PO DAILY 12/02/16 11/09/17 Gabapentin [Neurontin] 100 mg PO HS 12/02/16 11/09/17 Insulin Glargine,Hum.rec.anlog 46 units SQ BID 12/02/16 11/09/17 [Lantus Solostar] Metformin HCl [Glucophage] 1,000 mg PO BID 12/02/16 11/09/17 Pentoxifylline [Pentoxifylline] 400 mg PO BID 12/02/16 11/09/17 Potassium Chloride 20 meq PO DAILY 12/02/16 11/09/17 Pramipexole [Mirapex] 0.25 mg PO BID 12/02/16 11/09/17 Simvastatin [Zocor] 20 mg PO DAILY 12/02/16 11/09/17 Warfarin [Coumadin] 8 mg PO TUSA 12/02/16 11/09/17 Warfarin [Coumadin] 10 mg PO SUMOWETHFR 12/02/16 11/09/17 Lisinopril [Zestril] 10 mg PO DAILY 11/09/17 11/09/17 Allergies Allergy/AdvReac Type Severity Reaction Status Date / Time peanut Allergy Anaphylaxis Verified 03/25/17 00:00 cephalexin [From Keflex] AdvReac Rash Verified 03/25/17 00:00 levofloxacin AdvReac Rash Verified 03/25/17 00:00 Sulfa (Sulfonamide AdvReac Rash Verified 03/25/17 00:00 Antibiotics) All systems ED: reviewed and negative except as stated. Constitutional: Reports: weakness Eyes: Denies: eye pain, eye discharge, vision change Respiratory: Denies: cough, dyspnea, wheezes, hemoptysis, stridor Gastrointestinal: Denies: abdominal pain, nausea, vomiting, diarrhea, constipation, hematemesis, melena, hematochezia Genitourinary: Denies: urgency, dysuria, frequency, hematuria Musculoskeletal: Denies: back pain, neck pain, arthralgia, myalgia Integumentary: Reports: other (lymphedema) Neurological: Denies: headache, weakness, numbness, paresthesias, confusion, abnormal gait, vertigo Psychiatric: Denies: anxiety, depression, suicidal thoughts, homicidal thoughts , auditory hallucinations, visual hallucinations Endocrine: Denies: fatigue Hematological/Lymphatic: Reports: other (Hx DVT, on warfarin) Allergic/Immunologic: Denies: facial swelling, urticaria Past Medical History - Past Medical History Medical history: Reports: asthma, DVT, diabetes, hyperlipidemia, hypertension, other Surgical history: Reports: herniorrhaphy Psychiatric history: Reports: no psych history - Social History Smoking Status: Never smoker Smokeless Tobacco Status: No Alcohol use: Reports: none Drug use: Reports: none Physical Exam - General Limitations: no limitations General appearance: alert, in no apparent distress - Head Head exam: atraumatic, normal inspection - Eye Eye exam: Present: normal appearance, PERRL, EOMI - ENT ENT exam: normal exam - Neck Neck exam: Present: normal inspection, full ROM, trachea midline - Chest Chest inspection: Present: normal inspection, symmetric chest wall rise - Respiratory Respiratory exam: Present: normal lung sounds bilaterally. Absent: respiratory distress, wheezes, accessory muscle use, prolonged expiratory phase - Cardiovascular Cardiovascular exam: Present: normal rhythm, tachycardia, normal heart sounds. Absent: systolic murmur, diastolic murmur - Abdominal Exam Abdominal exam: Present: soft, Non-Tender - Expanded Lower Extremity Exam Upper leg exam: Present: normal inspection. Absent: tenderness, swelling Knee exam: Present: normal inspection Lower leg exam: Present: normal inspection, other (edema 2+ to superior calves, hyperpigmented) Ankle exam: Present: normal inspection - Neurological Exam Neurological exam: Present: alert, oriented X3, CN II-XII intact. Absent: motor sensory deficit - Psychiatric Psychiatric exam: Present: normal affect - Skin Skin exam: Present: warm, dry Course Course Narrative: generalized weakness with temp above 98.6 but less than 100.4; no chest pain, dyspnea, or abdominal complaints, will check ECG, CXR, CBC, BMP, Trop Vital Signs Temperature 100.0 F H 11/09/17 11:44 Pulse Rate 102 11/09/17 11:44 Respiratory Rate 18 11/09/17 11:44 Blood Pressure 196/123 11/09/17 11:44 O2 Sat by Pulse Oximetry 97 11/09/17 11:44 Temperature 98.2 F 11/12/17 11:19 Pulse Rate 91 11/12/17 11:19 Respiratory Rate 15 11/12/17 11:19 Blood Pressure 125/62 11/12/17 11:19 O2 Sat by Pulse Oximetry 95 11/12/17 11:19 Oxygen Delivery Oxygen Delivery Room Air Weakness - Lab Data Lab results reviewed: Yes I reviewed the patient's lab results. Result diagrams: 11/11/17 05:23 11/12/17 06:20 Lab Results 11/09/17 11/09/17 11/09/17 Range/Units 11:52 11:52 12:20 WBC 14.7 H (4.3-11.1) K/mcL RBC 3.53 L (4.19-5.50) M/mcL Hgb 10.5 L (12.9-16.9) g/dL Hct 33.5 L (37.5-50.1) % MCV 94.9 (83.0-100.0) fL MCH 29.7 (28.0-33.3) pg MCHC 31.3 L (31.6-35.5) g/dL RDW 14.4 (11.5-14.5) % Plt Count 198 (140-400) K/mcL MPV 11.4 (9.4-12.4) fL Immature Gran % 0.3 (0-4) % Seg Neutrophils % 82.5 % Lymphocytes % 7.7 % Monocytes % 6.2 % Eosinophils % 3.1 % Basophils % 0.2 % Neutrophils # 12.2 H (1.6-8.9) K/mcL Lymphocytes # 1.1 (0.6-4.6) K/mcL Monocytes # 0.9 (0.0-1.3) K/mcL Eosinophils # 0.5 (0.0-0.6) K/mcL Basophils # 0.0 (0.0-0.2) K/mcL ESR (0-10) mm/hr PT (9.4-12.1) Seconds INR Sodium 141 (136-145) mEq/L Potassium 4.7 (3.5-5.1) mEq/L Chloride 106 (98-107) mEq/L Carbon Dioxide 30 H (23-29) mEq/L BUN 18 (6-20) mg/dL Creatinine 1.28 (0.70-1.30) mg/dL Est GFR ( Amer) > 60 (> 60) Est GFR (Non-Af Amer) 59 L (> 60) BUN/Creatinine Ratio 14 (6-26) Glucose 147 H (70-105) mg/dL Calculated Osmolality 297 (280-300) Lactic Acid 1.4 (0.5-2.2) mmol/L Calcium 9.0 (8.6-10.3) mg/dL Troponin I < 0.03 (< 0.04) ng/mL C-Reactive Protein (Less than 10) mg/L A. baumannii (PCR) (Not Detect) Mary albicans (PCR) (Not Detect) C. glabrata (PCR) (Not Detect) C. krusei (PCR) (Not Detect) C. parapsilosis (PCR) (Not Detect) C. tropicalis (PCR) (Not Detect) Enterobacteriac sp PCR (Not Detect) E. cloacae complex PCR (Not Detect) Enterococcus sp PCR (Not Detect) E. coli (PCR) (Not Detect) H. influenzae (PCR) (Not Detect) Klebsiella oxytoca PCR (Not Detect) Klebsiella pneumoniae (Not Detect) List. monocytogenes PCR (Not Detect) N. meningitidis (PCR) (Not Detect) Proteus species (PCR) (Not Detect) Serratia marcescens PCR (Not Detect) Staphylococcus sp PCR (Not Detect) Staph aureus (PCR) (Not Detect) mecA-Methicil Res Gene (Not Detect) Streptococcus sp PCR (Not Detect) Group A Strep DNA (Not Detect) Group B Strep (PCR) (Not Detect) Strep pneumoniae (PCR) (Not Detect) P. aeruginosa (PCR) (Not Detect) Osvaldo/B-Vanco Res Genes (Not Detect) KPC (blaKPC) Detect PCR (Not Detect) 11/09/17 11/09/17 11/09/17 Range/Units 12:20 12:20 12:20 WBC (4.3-11.1) K/mcL RBC (4.19-5.50) M/mcL Hgb (12.9-16.9) g/dL Hct (37.5-50.1) % MCV (83.0-100.0) fL MCH (28.0-33.3) pg MCHC (31.6-35.5) g/dL RDW (11.5-14.5) % Plt Count (140-400) K/mcL MPV (9.4-12.4) fL Immature Gran % (0-4) % Seg Neutrophils % % Lymphocytes % % Monocytes % % Eosinophils % % Basophils % % Neutrophils # (1.6-8.9) K/mcL Lymphocytes # (0.6-4.6) K/mcL Monocytes # (0.0-1.3) K/mcL Eosinophils # (0.0-0.6) K/mcL Basophils # (0.0-0.2) K/mcL ESR 63 H (0-10) mm/hr PT 27.8 H (9.4-12.1) Seconds INR 2.5 Sodium (136-145) mEq/L Potassium (3.5-5.1) mEq/L Chloride (98-107) mEq/L Carbon Dioxide (23-29) mEq/L BUN (6-20) mg/dL Creatinine (0.70-1.30) mg/dL Est GFR ( Amer) (> 60) Est GFR (Non-Af Amer) (> 60) BUN/Creatinine Ratio (6-26) Glucose (70-105) mg/dL Calculated Osmolality (280-300) Lactic Acid (0.5-2.2) mmol/L Calcium (8.6-10.3) mg/dL Troponin I (< 0.04) ng/mL C-Reactive Protein (Less than 10) mg/L A. baumannii (PCR) Not Detected (Not Detect) Mary albicans (PCR) Not Detected (Not Detect) C. glabrata (PCR) Not Detected (Not Detect) C. krusei (PCR) Not Detected (Not Detect) C. parapsilosis (PCR) Not Detected (Not Detect) C. tropicalis (PCR) Not Detected (Not Detect) Enterobacteriac sp PCR DETECTED A (Not Detect) E. cloacae complex PCR Not Detected (Not Detect) Enterococcus sp PCR Not Detected (Not Detect) E. coli (PCR) DETECTED A (Not Detect) H. influenzae (PCR) Not Detected (Not Detect) Klebsiella oxytoca PCR Not Detected (Not Detect) Klebsiella pneumoniae Not Detected (Not Detect) List. monocytogenes PCR Not Detected (Not Detect) N. meningitidis (PCR) Not Detected (Not Detect) Proteus species (PCR) Not Detected (Not Detect) Serratia marcescens PCR Not Detected (Not Detect) Staphylococcus sp PCR Not Detected (Not Detect) Staph aureus (PCR) Not Detected (Not Detect) mecA-Methicil Res Gene Not Detected (Not Detect) Streptococcus sp PCR Not Detected (Not Detect) Group A Strep DNA Not Detected (Not Detect) Group B Strep (PCR) Not Detected (Not Detect) Strep pneumoniae (PCR) Not Detected (Not Detect) P. aeruginosa (PCR) Not Detected (Not Detect) Osvaldo/B-Vanco Res Genes Not Detected (Not Detect) KPC (blaKPC) Detect PCR Not Detected (Not Detect) 11/09/17 Range/Units 13:44 WBC (4.3-11.1) K/mcL RBC (4.19-5.50) M/mcL Hgb (12.9-16.9) g/dL Hct (37.5-50.1) % MCV (83.0-100.0) fL MCH (28.0-33.3) pg MCHC (31.6-35.5) g/dL RDW (11.5-14.5) % Plt Count (140-400) K/mcL MPV (9.4-12.4) fL Immature Gran % (0-4) % Seg Neutrophils % % Lymphocytes % % Monocytes % % Eosinophils % % Basophils % % Neutrophils # (1.6-8.9) K/mcL Lymphocytes # (0.6-4.6) K/mcL Monocytes # (0.0-1.3) K/mcL Eosinophils # (0.0-0.6) K/mcL Basophils # (0.0-0.2) K/mcL ESR (0-10) mm/hr PT (9.4-12.1) Seconds INR Sodium (136-145) mEq/L Potassium (3.5-5.1) mEq/L Chloride (98-107) mEq/L Carbon Dioxide (23-29) mEq/L BUN (6-20) mg/dL Creatinine (0.70-1.30) mg/dL Est GFR ( Amer) (> 60) Est GFR (Non-Af Amer) (> 60) BUN/Creatinine Ratio (6-26) Glucose (70-105) mg/dL Calculated Osmolality (280-300) Lactic Acid (0.5-2.2) mmol/L Calcium (8.6-10.3) mg/dL Troponin I < 0.03 (< 0.04) ng/mL C-Reactive Protein 9 (Less than 10) mg/L A. baumannii (PCR) (Not Detect) Mary albicans (PCR) (Not Detect) C. glabrata (PCR) (Not Detect) C. krusei (PCR) (Not Detect) C. parapsilosis (PCR) (Not Detect) C. tropicalis (PCR) (Not Detect) Enterobacteriac sp PCR (Not Detect) E. cloacae complex PCR (Not Detect) Enterococcus sp PCR (Not Detect) E. coli (PCR) (Not Detect) H. influenzae (PCR) (Not Detect) Klebsiella oxytoca PCR (Not Detect) Klebsiella pneumoniae (Not Detect) List. monocytogenes PCR (Not Detect) N. meningitidis (PCR) (Not Detect) Proteus species (PCR) (Not Detect) Serratia marcescens PCR (Not Detect) Staphylococcus sp PCR (Not Detect) Staph aureus (PCR) (Not Detect) mecA-Methicil Res Gene (Not Detect) Streptococcus sp PCR (Not Detect) Group A Strep DNA (Not Detect) Group B Strep (PCR) (Not Detect) Strep pneumoniae (PCR) (Not Detect) P. aeruginosa (PCR) (Not Detect) Osvaldo/B-Vanco Res Genes (Not Detect) KPC (blaKPC) Detect PCR (Not Detect) - Radiology Data Radiology results reviewed: Yes I reviewed the patient's radiology results. - EKG Data EKG attestation: Yes I reviewed and interpreted this EKG. EKG results narrative: Sinus tachycardia rate 101 MO 172 QRS 77 QT/QTC 291/349. No acute ST segment elevation. Q-wave isolated to lead 3. Steady compared to previous dated
--- NOTE | 2017-11-09 12:17 | Emergency Department Note ---
START Narrative - START START: The entirety of the patient's medical documentation was completed by Dr. Saul frederick. He performed documentation under my supervision for training purposes. Care of the patient was performed entirely by him
[2017-11-09 12:34] LABS: Basophils % 0.2 %; Eosinophils # 0.5 K/mcL (0.0-0.6); Eosinophils % 3.1 %; Hematocrit 33.5 % (37.5-50.1); Hemoglobin 10.5 g/dL (12.9-16.9); Immature Granulocytes % 0.3 % (0-4); Lymphocytes # 1.1 K/mcL (0.6-4.6); Lymphocytes % 7.7 %; Mean Corpuscular HGB Conc 31.3 g/dL (31.6-35.5); Mean Corpuscular Hemoglobin 29.7 pg (28.0-33.3); Mean Corpuscular Volume 94.9 fL (83.0-100.0); Mean Platelet Volume 11.4 fL (9.4-12.4); Monocytes # 0.9 K/mcL (0.0-1.3); Monocytes % 6.2 %; Neutrophils # 12.2 K/mcL (1.6-8.9); Platelet Count 198 K/mcL (140-400); Red Blood Count 3.53 M/mcL (4.19-5.50); Red Cell Distribution Width 14.4 % (11.5-14.5); Segmented Neutrophils % 82.5 %
[2017-11-09 12:41] LABS: INR 2.5; Prothrombin Time 27.8 Seconds (9.4-12.1)
[2017-11-09 12:54] LABS: BUN/Creatinine Ratio 14 (6-26); Blood Urea Nitrogen 18 mg/dL (6-20); Carbon Dioxide 30 mEq/L (23-29); Chloride 106 mEq/L (98-107); Glucose 147 mg/dL (70-105); Osmolality,Calculated 297 (280-300); Potassium 4.7 mEq/L (3.5-5.1); Sodium 141 mEq/L (136-145); Troponin I < 0.03 ng/mL (< 0.04); eGFR For African Americans > 60 (> 60); eGFR For Non-African Americans 59 (> 60)
[2017-11-09] MEDS ORDERED: Doxycycline 100 MG CAPSULE PO ONE (13:03)
[2017-11-09 14:18] LABS: Troponin I < 0.03 ng/mL (< 0.04)
[2017-11-09 14:49] LABS: C-Reactive Protein 9 mg/L (Less than 10)
--- NOTE | 2017-11-09 14:50 | Internal Med History&Physical ---
Date of Encounter: 11/10/17 Time of Encounter: 14:46 Internal Medicine - H&P: HPI Chief complaint: lethargy Admitted From: Emergency Dept Plans for Post Hospital Care: Home History of present illness: Mr. Jones is a 51 year old male with h/o T2DM, HLD, hypertension, afib, diabetic foot ulcer, CKD3, asthma, h/o DVT, who presents with fatigue, weakness of the lower extremities and fever. The patient says that this is typical for him at the start of sepsis. He started having symptoms of feeling feverish and chills this morning. He was fine yesterday. Lower extremities look more red on the right to him. He see somebody in a wound clinic in [place] usually for diabetic ulcers. He was noted to have a temp of 100.0 and tacycardia of 102 in the ED. BP was 196/123 in the ED. Noted to have foot ulcers and labs showed WBC count of 14.7. Given Vancomycin and doxy in the ED. denies any headache, blurry vision, nausea, vomiting, chest pain, abdominal pain, diarrhea, constipation, urinary symptoms, or neurological symptoms. Past Med Surg Social Fam HX - Past Medical History Medical history: asthma, DVT, diabetes, hyperlipidemia, hypertension, other Additional medical history: lymphadema Psychiatric history: no psych history - Past Surgical History Surgical History: herniorrhaphy - Social History Smoking Status: Never smoker Smokeless Tobacco Status: No Alcohol use: none Drug use: none - Family History Father Family Member Ethnicity: Non- Living Status: Still Living Hx Family Cardiac Disorders: Yes (Heart valve replacement, venous stasis) Mother Family Member Ethnicity: Non- Living Status: Hx Family Endocrine Disorder: Yes (DM) Hx Family Neurologic Disorders: Yes (Alzheimer's disease) Brother Family Member Ethnicity: Non- Living Status: Still Living Hx Family Cardiac Disorders: Yes (DVTs) Internal Medicine - H&P: Meds Acetaminophen [Tylenol] 500 mg PO HS 12/02/16 [History] Carvedilol Phosphate [Coreg Cr] 80 mg PO DAILY 12/02/16 [History] Clobetasol Propionate [Temovate] 1 appl TP BID PRN 12/02/16 [History] Ergocalciferol (VITAMIN D2) [Vitamin D2] 50,000 unit PO QWEEK 12/02/16 [History] Fluticasone/Salmeterol [Advair 250-50 Diskus] 1 each IH BID PRN 12/02/16 [ History] Furosemide [Lasix] 40 mg PO DAILY 12/02/16 [History] Gabapentin [Neurontin] 100 mg PO HS 12/02/16 [History] Insulin Glargine,Hum.rec.anlog [Lantus Solostar] 46 units SQ BID 12/02/16 [ History] Metformin HCl [Glucophage] 1,000 mg PO BID 12/02/16 [History] Pentoxifylline [Pentoxifylline] 400 mg PO BID 12/02/16 [History] Potassium Chloride 20 meq PO DAILY 12/02/16 [History] Pramipexole [Mirapex] 0.25 mg PO BID 12/02/16 [History] Simvastatin [Zocor] 20 mg PO DAILY 12/02/16 [History] Warfarin [Coumadin] 8 mg PO TUSA 12/02/16 [History] Warfarin [Coumadin] 10 mg PO SUMOWETHFR 12/02/16 [History] Lisinopril [Zestril] 10 mg PO DAILY 11/09/17 [History] 3 Allergy/AdvReac Type Severity Reaction Status Date / Time peanut Allergy Anaphylaxis Verified 03/25/17 00:00 cephalexin [From Keflex] AdvReac Rash Verified 03/25/17 00:00 levofloxacin AdvReac Rash Verified 03/25/17 00:00 Sulfa (Sulfonamide AdvReac Rash Verified 03/25/17 00:00 Antibiotics) All Systems PM: A 10-system review of systems was performed and is negative for pertinent findings except as documented above in the HPI. Review of systems: All systems reviewed are negative except as mentioned above - Constitutional Vitals: Temp Pulse Resp BP Pulse Ox 98.9 F 90 18 174/99 98 11/09/17 13:14 11/09/17 14:26 11/09/17 14:26 11/09/17 14:26 11/09/17 14:26 Exam: GEN: NAD HEENT: AT, NC, No cyanosis, oral mucosa is moist, No JVD Lymphatics: No lymphadenoapthy Eyes: Extrocular muscles intact, anicteric CVS:RRR. S1, S2, No m/r/g RESP: CTAB ABD: Soft, NT, ND, +BS EXT: Lower extremity erythema and edema more prominent on the right lower extremities with findings of some venous stasis, right plantar foot with an ulceration that is about the size of the kevon with no drainage with surrounding erythema, No rashes, 2+ DP NEURO: Nonfocal, CN II-XII intact, No focal motor or sensory deficits Psych: Cooperative, Not anxious or depressed Internal Med - H&P Results - Labs CBC & Chem 7: 11/10/17 05:27 11/10/17 05:27 - Assessment and plan (1) Diabetic foot ulcer Current Visit: No Status: Acute Assessment and plan: We will retest her right foot ulcer with vancomycin and Zosyn. Check wound cultures. Follow-up on blood cultures. Check ESR and CRP. Previous episodes like this with no osteomyelitis. We will place on IV fluids. We will consult wound. Qualifiers: Diabetic foot ulcer location: other Diabetes mellitus type: type 2 Laterality: right Non-pressure ulcer stage: limited to breakdown of skin Qualified Code(s): E11.621 - Type 2 diabetes mellitus with foot ulcer; L97.511 - Non-pressure chronic ulcer of other part of right foot limited to breakdown of skin (2) Sepsis Current Visit: No Status: Acute Assessment and plan: Treat underlying cause as above. f/u on blood and wound cultures. Qualifiers: Sepsis type: sepsis due to unspecified organism Qualified Code(s): A41.9 - Sepsis, unspecified organism (3) Diabetes Current Visit: No Status: Chronic Assessment and plan: We will place on insulin size scale. Resume home basal insulin. Accu-Cheks. Qualifiers: Diabetes mellitus type: type 2 Diabetes mellitus terminal carman insulin use: with residential use Diabetes mellitus complication status: with circulatory complication Diabetes mellitus complication detail: with other circulatory complications Qualified Code(s): E11.59 - Type 2 diabetes mellitus with other circulatory complications; Z79.4 - USP (current) use of insulin (4) HLD (hyperlipidemia) Current Visit: No Status: Chronic Assessment and plan: Continue statin. Qualifiers: Hyperlipidemia type: mixed hyperlipidemia Qualified Code(s): E78.2 - Mixed hyperlipidemia (5) HTN (hypertension) Current Visit: No Status: Chronic Assessment and plan: Blood pressure is elevated. We will resume home meds and add IV hydralazine when necessary. Qualifiers: Hypertension type: essential hypertension Qualified Code(s): I10 - Essential (primary) hypertension (6) A-fib Current Visit: Yes Status: Acute Assessment and plan: Continue beta demian. Continue anticoagulation with Coumadin. Qualifiers: Atrial fibrillation type: chronic Qualified Code(s): I48.2 - Chronic atrial fibrillation (7) DVT prophylaxis Current Visit: No Status: Acute Assessment and plan: On Coumadin - Time Spent With Patient Total time spent is greater than 50% in coordination of care (as documented) at patient's floor/unit and/or counseling patient:
[2017-11-09] MEDS ORDERED: *HR* Dextrose 50 % in Water (Syg) 50 ML SYRINGE IVP PRN (14:53)
[2017-11-09] MEDS ORDERED: Dextrose Gel 15 GM/37.5 ML TUBE PO PRN ×2 (14:53)
[2017-11-09] MEDS ORDERED: D5% in Water 1,000 ML IVC PRN (14:53)
[2017-11-09] MEDS ORDERED: Naloxone 0.4 MG/ML INJ IVP PRN (14:58)
[2017-11-09] MEDS ORDERED: *HR* HYDROcodone/Acet 5/325 mg TABLET PO PRN (14:58)
[2017-11-09] MEDS ORDERED: Acetaminophen 325 MG TABLET PO PRN (14:58)
[2017-11-09] MEDS: 0.9 % Sodium Chloride 1,000 ML IVC SCH (16:01)
--- NOTE | 2017-11-09 16:35 | Electrocardiograph Report ---
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
[2017-11-09] MEDS: Insulin LISPRO 300 UNITS/3 ML VIAL SQ SCH ×2 (16:44→21:19)
[2017-11-09] MEDS: Piperacillin/Tazobactam 3.375 GM in 0.9 % Sodium Chloride Mini Bag 100 ML IVPB SCH (16:49)
[2017-11-09] MEDS ORDERED: *HR* Warfarin 10 MG TABLET PO ONE (18:00)
[2017-11-09] MEDS ORDERED: Warfarin perPT PO PRN (18:00)
[2017-11-09] MEDS: Budesonide/Formoterol 80/4.5 MDI IH SCH (19:59)
[2017-11-09] MEDS: Gabapentin 100 MG CAPSULE PO SCH (21:09)
[2017-11-09] MEDS: Insulin DETEMIR 100 UNIT/ML X5UNITS SQ SCH (21:10)
[2017-11-09] MEDS: Acetaminophen 325 MG TABLET PO PRN (21:10)
[2017-11-10] MEDS: 0.9 % Sodium Chloride 1,000 ML IVC SCH ×2 (01:21→17:56)
[2017-11-10] MEDS: Piperacillin/Tazobactam 3.375 GM in 0.9 % Sodium Chloride Mini Bag 100 ML IVPB SCH ×3 (01:23→17:56)
[2017-11-10 02:46] LABS: Acinetobacter baumannii by PCR Not Detected (Not Detect); Candida albicans by PCR Not Detected (Not Detect); Candida glabrata by PCR Not Detected (Not Detect); Candida krusei by PCR Not Detected (Not Detect); Candida parapsilosis by PCR Not Detected (Not Detect); Candida tropicalis by PCR Not Detected (Not Detect); Enterococcus by PCR Not Detected (Not Detect); Escherichia coli by PCR ***DETECTED*** (Not Detect); Klebsiella oxytoca by PCR Not Detected (Not Detect); Klebsiella pneumoniae by PCR Not Detected (Not Detect); Pseudomonas aeruginosa by PCR Not Detected (Not Detect); Serratia marcescens by PCR Not Detected (Not Detect); Staphylococcus aureus by PCR Not Detected (Not Detect); Streptococcus agalactiae(B)PCR Not Detected (Not Detect); Streptococcus by PCR Not Detected (Not Detect); Streptococcus pneumoniae PCR Not Detected (Not Detect); Streptococcus pyogenes (A) PCR Not Detected (Not Detect); blaKPC Carbapenem-Resist Gene Not Detected (Not Detect); mecA Methicillin-Resist Gene Not Detected (Not Detect); vanA/B Vancomycin-Resist Genes Not Detected (Not Detect)
[2017-11-10] MEDS ORDERED: metroNIDAZOLE 500 MG TABLET PO SCH (03:45)
[2017-11-10 05:40] LABS: Basophils % 0.2 %; Eosinophils # 0.1 K/mcL (0.0-0.6); Eosinophils % 0.9 %; Hematocrit 29.1 % (37.5-50.1); Hemoglobin 9.3 g/dL (12.9-16.9); Immature Granulocytes % 0.5 % (0-4); Lymphocytes # 1.9 K/mcL (0.6-4.6); Lymphocytes % 12.4 %; Mean Corpuscular Hemoglobin 29.6 pg (28.0-33.3); Mean Corpuscular Volume 92.7 fL (83.0-100.0); Mean Platelet Volume 11.1 fL (9.4-12.4); Monocytes # 1.3 K/mcL (0.0-1.3); Monocytes % 8.6 %; Neutrophils # 11.8 K/mcL (1.6-8.9); Platelet Count 160 K/mcL (140-400); Red Blood Count 3.14 M/mcL (4.19-5.50); Red Cell Distribution Width 14.6 % (11.5-14.5); Segmented Neutrophils % 77.4 %
[2017-11-10 05:51] LABS: BUN/Creatinine Ratio 11 (6-26); Blood Urea Nitrogen 16 mg/dL (6-20); Calcium 8.4 mg/dL (8.6-10.3); Carbon Dioxide 25 mEq/L (23-29); Chloride 107 mEq/L (98-107); Glucose 115 mg/dL (70-105); Magnesium 1.5 mg/dL (1.6-2.6); Osmolality,Calculated 294 (280-300); Potassium 5.2 mEq/L (3.5-5.1); Sodium 141 mEq/L (136-145); eGFR For African Americans > 60 (> 60); eGFR For Non-African Americans 52 (> 60)
[2017-11-10] MEDS: Budesonide/Formoterol 80/4.5 MDI IH SCH ×2 (07:33→20:21)
[2017-11-10] MEDS ORDERED: Aminoglycoside Consult 1 EACH MC ONE (07:48)
[2017-11-10] MEDS: Insulin DETEMIR 100 UNIT/ML X5UNITS SQ SCH ×2 (07:50→20:56)
[2017-11-10] MEDS: Insulin LISPRO 300 UNITS/3 ML VIAL SQ SCH ×4 (07:50→20:55)
[2017-11-10] MEDS ORDERED: Furosemide 40 MG TABLET PO SCH (09:00)
[2017-11-10] MEDS: Acetaminophen 325 MG TABLET PO PRN (13:18)
--- NOTE | 2017-11-10 16:08 | Internal Med Progress Note ---
Date of Encounter: 11/10/17 Time of Encounter: 11:40 - Assessment and plan (1) Bacteremia Current Visit: Yes Status: Acute Assessment and plan: Likely due to infected foot ulcer. One out of 2 blood cultures grow gram- negative rods, serology positive for Enterobacteriaceae/E.coli. Continue IV antibiotics, follow up final cultures. Remaining plan as below. (2) Diabetic foot ulcer Current Visit: Yes Status: Acute Assessment and plan: Patient has chronic right diabetic foot ulcer due to Charcot arthropathy. Possible acute infection. Wound culture grows gram-negative rods. Associated with gram-negative bacteremia. Podiatry consulted. MRI for shows significant degenerative changes compatible with Charcot arthropathy, possible underlying phlegmon, no discrete abscess or osteomyelitis. ESR 63, CRP normal. Continue IV vancomycin and Zosyn for now, deescalate following up final cultures. Infectious diseases consulted. Right foot non-weight bearing; PT/OT evaluation when stable; Qualifiers: Diabetic foot ulcer location: other Diabetes mellitus type: type 2 Laterality: right Non-pressure ulcer stage: unspecified non-pressure ulcer stage Qualified Code(s): E11.621 - Type 2 diabetes mellitus with foot ulcer; L97.519 - Non-pressure chronic ulcer of other part of right foot with unspecified severity (3) Sepsis Current Visit: Yes Status: Acute Assessment and plan: Presented with fever, tachycardia, leukocytosis with bacteremia. Improving. Lactic acid noted to be normal. Continue antibiotics and follow up cultures. Qualifiers: Sepsis type: Escherichia coli Qualified Code(s): A41.51 - Sepsis due to Escherichia coli [E. coli] (4) DVT prophylaxis Current Visit: Yes Status: Acute (5) Diabetes Current Visit: Yes Status: Chronic Assessment and plan: Blood sugars noted to be well controlled. Continue Accu-Chek blood glucose monitoring with basal bolus insulin regimen. Diabetic diet. Check hemoglobin A1c. Qualifiers: Diabetes mellitus type: type 2 Diabetes mellitus cell efficiency supervisor insulin use: with cell efficiency supervisor use Diabetes mellitus complication status: with circulatory complication Diabetes mellitus complication detail: with other circulatory complications Qualified Code(s): E11.59 - Type 2 diabetes mellitus with other circulatory complications; Z79.4 - intermediate (current) use of insulin (6) HTN (hypertension) Current Visit: Yes Status: Chronic Qualifiers: Hypertension type: essential hypertension Qualified Code(s): I10 - Essential (primary) hypertension (7) HLD (hyperlipidemia) Current Visit: Yes Status: Chronic Qualifiers: Hyperlipidemia type: mixed hyperlipidemia Qualified Code(s): E78.2 - Mixed hyperlipidemia (8) A-fib Current Visit: Yes Status: Chronic Assessment and plan: Currently rate controlled. Continue telemetry monitoring, anticoagulation with Coumadin. Qualifiers: Atrial fibrillation type: chronic Qualified Code(s): I48.2 - Chronic atrial fibrillation (9) CKD (chronic kidney disease), stage III Current Visit: Yes Status: Chronic Assessment and plan: Serum creatinine noted to be 1.3, within his baseline. Noted to have mild hyperkalemia at 5.2, hold IAIN inhibitor, treat with Kayexalate. (10) Asthma Current Visit: Yes Status: Chronic Qualifiers: Asthma severity: mild Asthma persistence: intermittent Asthma complication type: unspecified Qualified Code(s): J45.20 - Mild intermittent asthma, uncomplicated (11) Morbid obesity with BMI of 50.0-59.9, adult Current Visit: Yes Status: Chronic - Time Spent With Patient Total time spent is greater than 50% in coordination of care (as documented) at patient's floor/unit and/or counseling patient: - Subjective Interval history: Reports feeling better; had fever spikes overnight with Tmax of 102.3; improved fatigue and weakness; no right foot pain or excess foul-smelling discharge per him; no chest pain, cough, dyspnea; - Constitutional Vitals: Temp Pulse Resp BP Pulse Ox 99.3 F 94 15 105/53 93 11/10/17 15:31 11/10/17 15:31 11/10/17 15:31 11/10/17 15:31 11/10/17 15:31 General appearance: Present: A&O X 3, morbidly obese, answers questions appropriately - Respiratory Respiratory exam: Present: decreased breath sounds (B/L bases due to thick chest wall), CTAB. Absent: accessory muscle use, rales, rhonchi, wheezes - Cardiovascular Cardiovascular exam: Present: RRR, +S1, +S2. Absent: diastolic murmur, gallop, rubs, systolic murmur - GI/Abdominal GI/Abdominal exam: Present: normal bowel sounds, soft (obese), no peritoneal signs. Absent: distended, tenderness - Extremities Exam Extremities exam: Present: full ROM, pedal edema (chronic stasis dermatitis and lymphedema), warm, radial pulses palpable and symmetrical. Absent: calf tenderness, cyanotic Additional comments: right plantar open wound, in dressing - Neurological Exam Neurological exam: Present: CN II-XII intact, oriented X3, no focal deficits. Absent: pronater drift, facial droop, speech deficit Internal Medicine: Result - Labs CBC & Chem 7: 11/10/17 05:27 11/10/17 05:27 Labs: Short CBC 11/10/17 Range/Units 05:27 WBC 15.3 H (4.3-11.1) K/mcL Hgb 9.3 L (12.9-16.9) g/dL Hct 29.1 L (37.5-50.1) % Plt Count 160 (140-400) K/mcL Neutrophils # 11.8 H (1.6-8.9) K/mcL BMP 11/10/17 05:27 Sodium 141 Potassium 5.2 H Chloride 107 Carbon Dioxide 25 BUN 16 Creatinine 1.43 H Glucose 115 H Calcium 8.4 L - ABG Interpretation ABG results: PT/INR, D-dimer PT 34.0 Seconds (9.4-12.1) H 11/10/17 06:00 - Impressions Impressions Foot MRI 11/10/17 07:56 IMPRESSION: Focal heterogeneous T2 signal abnormality to the subcutaneous fat of the plantar foot in the midline at the level of the midfoot with apparent overlying dermal abnormality. No definite discrete organized appearance with thickened rim to the signal abnormality to suggest definite discrete abscess. Findings likely reflect the reported soft tissue ulcer with suspected underlying phlegmon measuring 1.1 x 2.4 x 2.8 cm. No convincing evidence for osteomyelitis. Severe degenerative changes and disorganization of the midfoot especially involving the tarsometatarsal joints, similar to prior exams and compatible with Charcot arthropathy. Minimal associated bone marrow edema, improved from prior exam, likely reactive. More diffuse nonspecific subcutaneous edema throughout the foot, especially to the dorsal foot, nonspecific. Stable mild degenerative changes to the 1st through 3rd MTP joints. D/ / 11/10/2017 11:02:10 Duran Oneill MD / jane Interpreting Provider: Duran Oneill MD Consult Discharge Plan - Plan Referrals: Curt Sainz MD [Primary Care Provider] -
--- NOTE | 2017-11-10 16:10 | Infectious Disease Consult ---
Date of Encounter: 11/10/17 Time of Encounter: 16:10 Assessment and Plan (1) Severe sepsis Status: Acute Assessment and plan: had 3 SIRS criteria on admission with End Organ damange secondary to GNR bacteremia improving (2) Bacteremia due to Escherichia coli Status: Acute Assessment and plan: 1 set positive on 11/09; final susceptibility pending likely source diabetic foot ulcer repeat blood cultures x 2 continue zosyn for now, once susceptibility finalized, consider tailoring antibiotics once clinically stable, will discuss IV Vs PO options duration of treatment 10-14 days patient has many drug allergies and he doesnt recall what it causes, but denies history of angioedema/anaphylaxis (3) [id number] kidney injury Status: Acute Assessment and plan: etiology likely multifactorial could be due to sepsis itself or vancomycin toxicity? will d/c vancomycin Qualifiers: Acute renal failure type: unspecified Chronic kidney disease stage: stage 4 (severe) Qualified Code(s): N17.9 - Acute kidney failure, unspecified; N18.4 - Chronic kidney disease, stage 4 (severe) (4) Diabetic foot ulcer Status: Acute Assessment and plan: MRI not revealing osteomyelitis or abscess. causative organism GNR continue zosyn for now, will tailor based on culture ID and susceptibility consider podiatry and wound care eval. inflammatory markers noted. Qualifiers: Diabetic foot ulcer location: other Diabetes mellitus type: type 2 Laterality: right Non-pressure ulcer stage: unspecified non-pressure ulcer stage Qualified Code(s): E11.621 - Type 2 diabetes mellitus with foot ulcer; L97.519 - Non-pressure chronic ulcer of other part of right foot with unspecified severity (5) Morbid obesity with BMI of 50.0-59.9, adult Status: Chronic (6) A-fib Status: Chronic Qualifiers: Atrial fibrillation type: chronic Qualified Code(s): I48.2 - Chronic atrial fibrillation (7) Allergy to multiple antibiotics Status: Acute Assessment and plan: multiple allergies mentioned including keflex, levofloxacin and bactrim exact reaction or when is not known. patient tells me he doesn't remember but does never had anaphylaxis or angioedema Infectious Disease HPI - Data of Consult Patient: new to practice Consult date: 11/10/17 Requesting Physician: Marychuy Alcantara MD Primary Care Provider: Curt Sainz MD - Consult Narrative Reason for consult: sepsis and bacteremia History of present illness: Mr. Jones is a 51 year old male patient is a 51 year old man with past medical history mentioned below came to [facility] on 11/09 for lethargy, we are consulted on 11/10 for sepsis and bacteremia. Patient with past medical history including asthma, DVT, DM2, A fib, HTN and diabetic foot ulcer who presented with lethargy, weakness and fever. Most of the information was taken from medical records since patient does not recall all the details. Records state that symptoms started on the day of admision and patient was brought to the ED. Patient denies any headache, URI symptoms. Chest pain, shortness of breath, cough, sputum production, abdominal pain, N/V/ D or urinary symptoms. patient states more swelling and redness of the right lower extremity. Since admission, patient has been febrile with Tmax of 102.3F and tachycardia. BP stable. present labs reveal WBC of 14.7 with neutrophilic predominance and no bands. ESR was elevated at 63. INR was therapeutic at 2.5. Patient's intial kidney function was okay but then Cr jumped to 1.43. Blood cultures grew E coli and right foot culture grew GNR with ID pending. MRI of the foot reveals Charcot arthropathy and no abscess or osteomyelitis. a CXR without an acute process. patient was started on broad spectrum antibiotics and we were consulted for eval. CC: Marychuy Alcantara MD Past Med Surg Social Fam HX - Past Medical History Medical history: asthma, DVT, diabetes, hyperlipidemia, hypertension, other Additional medical history: lymphadema Psychiatric history: no psych history - Past Surgical History Surgical History: herniorrhaphy - Social History Smoking Status: Never smoker Smokeless Tobacco Status: No Alcohol use: none Drug use: none - Family History Father Family Member Ethnicity: Non- Living Status: Still Living Hx Family Cardiac Disorders: Yes (Heart valve replacement, venous stasis) Mother Family Member Ethnicity: Non- Living Status: Hx Family Endocrine Disorder: Yes (DM) Hx Family Neurologic Disorders: Yes (Alzheimer's disease) Brother Family Member Ethnicity: Non- Living Status: Still Living Hx Family Cardiac Disorders: Yes (DVTs) Infectious Disease-CN:Meds Acetaminophen [Tylenol] 500 mg PO HS 12/02/16 [History] Carvedilol Phosphate [Coreg Cr] 80 mg PO DAILY 12/02/16 [History] Clobetasol Propionate [Temovate] 1 appl TP BID PRN 12/02/16 [History] Ergocalciferol (VITAMIN D2) [Vitamin D2] 50,000 unit PO QWEEK 12/02/16 [History] Fluticasone/Salmeterol [Advair 250-50 Diskus] 1 each IH BID PRN 12/02/16 [ History] Furosemide [Lasix] 40 mg PO DAILY 12/02/16 [History] Gabapentin [Neurontin] 100 mg PO HS 12/02/16 [History] Insulin Glargine,Hum.rec.anlog [Lantus Solostar] 46 units SQ BID 12/02/16 [ History] Metformin HCl [Glucophage] 1,000 mg PO BID 12/02/16 [History] Pentoxifylline [Pentoxifylline] 400 mg PO BID 12/02/16 [History] Potassium Chloride 20 meq PO DAILY 12/02/16 [History] Pramipexole [Mirapex] 0.25 mg PO BID 12/02/16 [History] Simvastatin [Zocor] 20 mg PO DAILY 12/02/16 [History] Warfarin [Coumadin] 8 mg PO TUSA 12/02/16 [History] Warfarin [Coumadin] 10 mg PO SUMOWETHFR 12/02/16 [History] Lisinopril [Zestril] 10 mg PO DAILY 11/09/17 [History] 3 Allergy/AdvReac Type Severity Reaction Status Date / Time peanut Allergy Anaphylaxis Verified 03/25/17 00:00 cephalexin [From Keflex] AdvReac Rash Verified 03/25/17 00:00 levofloxacin AdvReac Rash Verified 03/25/17 00:00 Sulfa (Sulfonamide AdvReac Rash Verified 03/25/17 00:00 Antibiotics) Review of systems: 10 point ROS done, negative other for what's mentioned in the HPI Exam - Constitutional Vitals: Temp Pulse Resp BP Pulse Ox 99.3 F 94 15 105/53 93 11/10/17 15:31 11/10/17 15:31 11/10/17 15:31 11/10/17 15:31 11/10/17 15:31 General appearance: cooperative, no acute distress, no febrile - Head Head exam: Present: atraumatic, normocephalic - Eye Eye exam: Present: EOMI, PERRL, sclera anicteric - ENT ENT exam: Present: mucous membranes moist Additional comments: No oral thrush - Neck Neck exam: Present: full ROM. Absent: meningismus - Respiratory Respiratory exam: Present: CTAB. Absent: rhonchi, wheezes - Cardiovascular Cardiovascular exam: Present: irregular rhythm, +S1, +S2 - GI/Abdominal GI/Abdominal exam: Present: normal bowel sounds, soft. Absent: tenderness - Extremities Exam Additional comments: adequate perfusion, bilateral venous stasis. right plantar open wound with no surrounding cellulitis or drainage at this time. - Neurological Exam Neurological exam: Present: alert, oriented X3, no focal deficits - Psychiatric Psychiatric exam: Present: normal affect, normal mood - Skin Skin exam: Present: normal color. Absent: rash Infectious Disease CN: Results - Labs CBC & Chem 7: 11/10/17 05:27 11/10/17 05:27 Cultures: Cultures 11/09/17 15:45 Wound Culture - Preliminary Right Foot Gram Negative Jorge Consult Discharge Plan - Plan Referrals: Curt Sainz MD [Primary Care Provider] -
[2017-11-10] MEDS ORDERED: *HR* Warfarin 3 MG TABLET PO ONE (18:00)
[2017-11-10 19:31] LABS: Bilirubin,Urine Negative (Negative); Blood,Urine Negative (Negative); Clarity,Urine Clear (Clear); Color,Urine Yellow (Yellow); Glucose,Urine (UA) Normal (Normal); Ketones,Urine Negative (Negative); Leukocyte Esterase,Urine Negative (Negative); Nitrite,Urine Negative (Negative); Protein,Urine 30 mg/dL (Neg-Trace); Specific Gravity,Urine 1.014 (1.010-1.025); Urobilinogen,Urine Normal (Normal)
[2017-11-10 19:34] LABS: Bacteria,Urine None Seen per hpf (None-Few); Hyaline Casts,Urine None Seen per lpf (None-Few); RBC,Urine 0-3 per hpf (0-3); Squamous Epithelial Cell,Urine Moderate per lpf (None-Few); WBC,Urine 0-3 per hpf (0-3)
[2017-11-10] MEDS: Gabapentin 100 MG CAPSULE PO SCH (20:56)
[2017-11-11] MEDS: Piperacillin/Tazobactam 3.375 GM in 0.9 % Sodium Chloride Mini Bag 100 ML IVPB SCH ×4 (01:07→23:07)
[2017-11-11 05:37] LABS: Basophils % 0.4 %; Eosinophils # 0.3 K/mcL (0.0-0.6); Eosinophils % 3.7 %; Hemoglobin 8.9 g/dL (12.9-16.9); Immature Granulocytes % 0.2 % (0-4); Lymphocytes % 24.3 %; Mean Corpuscular HGB Conc 31.8 g/dL (31.6-35.5); Mean Corpuscular Hemoglobin 29.9 pg (28.0-33.3); Mean Platelet Volume 10.9 fL (9.4-12.4); Monocytes % 11.9 %; Neutrophils # 4.8 K/mcL (1.6-8.9); Platelet Count 155 K/mcL (140-400); Red Blood Count 2.98 M/mcL (4.19-5.50); Red Cell Distribution Width 14.6 % (11.5-14.5); Segmented Neutrophils % 59.5 %
[2017-11-11 05:46] LABS: INR 2.8; Prothrombin Time 31.7 Seconds (9.4-12.1)
[2017-11-11 05:55] LABS: BUN/Creatinine Ratio 10 (6-26); Blood Urea Nitrogen 15 mg/dL (6-20); Calcium 8.6 mg/dL (8.6-10.3); Carbon Dioxide 27 mEq/L (23-29); Chloride 106 mEq/L (98-107); Glucose 119 mg/dL (70-105); Magnesium 1.9 mg/dL (1.6-2.6); Osmolality,Calculated 292 (280-300); Potassium 4.2 mEq/L (3.5-5.1); Sodium 140 mEq/L (136-145); eGFR For African Americans > 60 (> 60); eGFR For Non-African Americans 52 (> 60)
[2017-11-11] MEDS: Budesonide/Formoterol 80/4.5 MDI IH SCH ×2 (07:50→21:01)
--- NOTE | 2017-11-11 08:54 | Anesthesia Evaluation PreOp ---
Date of Encounter: 11/11/17 Time of Encounter: 09:00 - Past History Planned Operation: Incision Drainage Debridement Rt Foot Cardiac History: HTN, Hyperlipidemia, Arrhythmia (AFIb Chronic) Pulmonary History: Asthma PROFESSOR OF HISTORICAL THEOLOGY History: Denies Any Significant HX Other Medical History: Renal (CKD), Diabetes Type II, Other (Morbid Obesity) Anesthesia History: No Prior Anesthetic Complications Alcohol Use: none Drug use: none Medications and Allergies Acetaminophen [Tylenol] 500 mg PO HS 12/02/16 [History] Carvedilol Phosphate [Coreg Cr] 80 mg PO DAILY 12/02/16 [History] Clobetasol Propionate [Temovate] 1 appl TP BID PRN 12/02/16 [History] Ergocalciferol (VITAMIN D2) [Vitamin D2] 50,000 unit PO QWEEK 12/02/16 [History] Fluticasone/Salmeterol [Advair 250-50 Diskus] 1 each IH BID PRN 12/02/16 [ History] Furosemide [Lasix] 40 mg PO DAILY 12/02/16 [History] Gabapentin [Neurontin] 100 mg PO HS 12/02/16 [History] Insulin Glargine,Hum.rec.anlog [Lantus Solostar] 46 units SQ BID 12/02/16 [ History] Metformin HCl [Glucophage] 1,000 mg PO BID 12/02/16 [History] Pentoxifylline [Pentoxifylline] 400 mg PO BID 12/02/16 [History] Potassium Chloride 20 meq PO DAILY 12/02/16 [History] Pramipexole [Mirapex] 0.25 mg PO BID 12/02/16 [History] Simvastatin [Zocor] 20 mg PO DAILY 12/02/16 [History] Warfarin [Coumadin] 8 mg PO TUSA 12/02/16 [History] Warfarin [Coumadin] 10 mg PO SUMOWETHFR 12/02/16 [History] Lisinopril [Zestril] 10 mg PO DAILY 11/09/17 [History] 3 Allergy/AdvReac Type Severity Reaction Status Date / Time peanut Allergy Anaphylaxis Verified 03/25/17 00:00 cephalexin [From Keflex] AdvReac Rash Verified 03/25/17 00:00 levofloxacin AdvReac Rash Verified 03/25/17 00:00 Sulfa (Sulfonamide AdvReac Rash Verified 03/25/17 00:00 Antibiotics) - Meds/Allergy Pre-op Review Medications Reviewed: Yes Allergies Reviewed: Yes Beta Blockers on Current Med List: Yes (Coreg today 0525) Anesthesia Results - Labs 11/11/17 05:23 11/11/17 05:23 - Imaging EKG: report reviewed (AFib) Additional studies: ECHO EF 60% Anesthesia Exam O2 Sat Weight 186.8 kg O2 Sat by Pulse Oximetry 96 O2 Sat by Pulse Oximetry 94 O2 Sat by Pulse Oximetry 93 O2 Sat by Pulse Oximetry 93 O2 Sat by Pulse Oximetry 95 O2 Sat by Pulse Oximetry 98 O2 Sat by Pulse Oximetry 93 O2 Sat by Pulse Oximetry 98 Vital Signs Temp Pulse Resp BP Pulse Ox 100.0 F H 102 18 196/123 97 11/09/17 11:44 11/09/17 11:44 11/09/17 11:44 11/09/17 11:44 11/09/17 11:44 Height: 6'1 Weight: 411 NPO (# of Hours): MN Pain Scale: 0 - HEENT Pupil (Motor): Pupils equal, EOMI Mallampati: III Teeth: Normal Oral Opening: Less than or equal to 3 - PROFESSOR OF HISTORICAL THEOLOGY LOC: Oriented PROFESSOR OF HISTORICAL THEOLOGY Motor: Normal RUE, Normal LUE, Normal RLE, Normal LLE, Normal Face PROFESSOR OF HISTORICAL THEOLOGY Sensory: Normal: RUE, LUE, LLE, Face, Deficit: RLE - Cardiac Rhythm: Irregular Murmur: None JVD: No Carotid Bruit: No - Pulmonary Breath Sounds: bilateral Clear Respiratory Effort: Symmetrical Anesthesia Assess/Plan ASA Score: 4 (Morbid Obesity AFib HTN CKD DM) Modified Parlin Scale for Level of Consciousness: Cooperative, oriented, and tranquil Anesthetic Plan: MAC Monitoring Plan: Standard Monitors Recovery Plan: Other (Discussed MAC, possible GA, agrees to proceed)
[2017-11-11] MEDS ORDERED: Lidocaine -MPF 2% 2 ML VIAL ONE (09:02)
[2017-11-11] MEDS ORDERED: Propofol 500 MG/50 ML INFUS..BTL ONE (09:02)
[2017-11-11] MEDS ORDERED: *HR* Propofol 200 MG/20 ML VIAL IVP ONE (09:04)
--- NOTE | 2017-11-11 09:06 | Podiatry Consult Note ---
Date of Encounter: 11/11/17 Time of Encounter: 20:00 Assessment and Plan (1) Ulcer of right foot with fat layer exposed Current visit: Yes Status: Acute I had a thorough review with the patient regarding his condition, my findings, and his MRI findings condition of his foot and treatment options. We discussed the fluid collection in the plantar lateral foot and collapse of the bones in the foot. We discussed the Charcot and deformity present. Incision and drainage and debridement of bone discussed with patient at length. Risks versus benefits potential complications and consequences of surgery discussed at length including but not limited to infection, bleeding, swelling, numbness, tingling, wound healing problems, loss of functionality, wound healing problems , blood clot, pulmonary embolism loss of leg/more of foot, , pneumonia, heart attack, kidney or liver failure, need for further surgery, etc. All of his questions were answered and the informed consent was signed after answering all questions. No guarantees made as to the outcome. No guarantees were made as to the outcome and it was explained that he could need further surgery and this could be a staged procedure. All his questions were answered and the informed consent was signed patient is NPO. (2) Charcot's joint of foot Current visit: Yes Status: Acute see above Qualifiers: Laterality: right Qualified Code(s): M14.671 - Charcot's joint, right ankle and foot History of Present Illness HPI: 53 year old diabetic male with afib, diabetic foot ulcer, CKD3, asthma, h/o DVT , who presents with fatigue, weakness of the lower extremities and fever. The patient has stated that this is typical for him at the start of sepsis. He felt like he had a fever the day of admission and came to the ER. He has history of a charcot foot and says he used to be treated by Dr. Hodgson but for a while now has been treated by Dr. Alford at [facility]. He last saw Dr. Alford a few weeks ago. He says recently his legs have developed redness. Patient had an MRI done showing fluid collection the plantar aspect of the right foot beneath ulceration present. Podiatry was consulted for evaluation. Past Med Surg Social Fam HX - Past Medical History Medical history: asthma, DVT, diabetes, hyperlipidemia, hypertension, other Additional medical history: lymphadema Psychiatric history: no psych history - Past Surgical History Surgical History: herniorrhaphy - Social History Smoking Status: Never smoker Smokeless Tobacco Status: No Alcohol use: none Drug use: none - Family History Father Family Member Ethnicity: Non- Living Status: Still Living Hx Family Cardiac Disorders: Yes (Heart valve replacement, venous stasis) Mother Family Member Ethnicity: Non- Living Status: Hx Family Endocrine Disorder: Yes (DM) Hx Family Neurologic Disorders: Yes (Alzheimer's disease) Brother Family Member Ethnicity: Non- Living Status: Still Living Hx Family Cardiac Disorders: Yes (DVTs) Medications and Allergies Acetaminophen [Tylenol] 500 mg PO HS 12/02/16 [History] Carvedilol Phosphate [Coreg Cr] 80 mg PO DAILY 12/02/16 [History] Clobetasol Propionate [Temovate] 1 appl TP BID PRN 12/02/16 [History] Ergocalciferol (VITAMIN D2) [Vitamin D2] 50,000 unit PO QWEEK 12/02/16 [History] Fluticasone/Salmeterol [Advair 250-50 Diskus] 1 each IH BID PRN 12/02/16 [ History] Furosemide [Lasix] 40 mg PO DAILY 12/02/16 [History] Gabapentin [Neurontin] 100 mg PO HS 12/02/16 [History] Insulin Glargine,Hum.rec.anlog [Lantus Solostar] 46 units SQ BID 12/02/16 [ History] Metformin HCl [Glucophage] 1,000 mg PO BID 12/02/16 [History] Pentoxifylline [Pentoxifylline] 400 mg PO BID 12/02/16 [History] Potassium Chloride 20 meq PO DAILY 12/02/16 [History] Pramipexole [Mirapex] 0.25 mg PO BID 12/02/16 [History] Simvastatin [Zocor] 20 mg PO DAILY 12/02/16 [History] Warfarin [Coumadin] 8 mg PO TUSA 12/02/16 [History] Warfarin [Coumadin] 10 mg PO SUMOWETHFR 12/02/16 [History] Lisinopril [Zestril] 10 mg PO DAILY 11/09/17 [History] 3 Allergy/AdvReac Type Severity Reaction Status Date / Time peanut Allergy Anaphylaxis Verified 03/25/17 00:00 cephalexin [From Keflex] AdvReac Rash Verified 03/25/17 00:00 levofloxacin AdvReac Rash Verified 03/25/17 00:00 Sulfa (Sulfonamide AdvReac Rash Verified 03/25/17 00:00 Antibiotics) All Systems Reviewed: The remainder of the systems were reviewed and are negative - Constitutional Constitutional: fever(s), weakness - Cardiovascular Cardiovascular: no chest pain, no chest pain at rest - Respiratory Respiratory: no cough, no dyspnea - Musculoskeletal Musculoskeletal: joint swelling, muscle weakness, other (numbness) Physical Exam - Constitutional Vitals: Temp Pulse Resp BP Pulse Ox 97.9 F 82 16 117/67 96 11/11/17 07:09 11/11/17 07:09 11/11/17 07:50 11/11/17 07:09 11/11/17 07:50 General appearance: cooperative, no acute distress, no febrile Exam: Well developed obese male in no acute distress Capillary refill time less than 3 seconds of the right foot digits. Prominent bone plantar lateral foot with fluctuance present. Erythema and plantar foot ulceration majoring 1 cm x 1 cm x 0.2 cm fibrous base. Erythema extending up the leg. Absent protective sensation. MRI-fluid collection plantar foot Results - Labs Result Diagrams: 11/11/17 05:23 11/11/17 05:23 Labs: Abnormal lab results RBC 2.98 M/mcL (4.19-5.50) L 11/11/17 05:23 Hgb 8.9 g/dL (12.9-16.9) L 11/11/17 05:23 Hct 28.0 % (37.5-50.1) L 11/11/17 05:23 RDW 14.6 % (11.5-14.5) H 11/11/17 05:23 ESR 63 mm/hr (0-10) H 11/09/17 12:20 PT 31.7 Seconds (9.4-12.1) H 11/11/17 05:23 Creatinine 1.44 mg/dL (0.70-1.30) H 11/11/17 05:23 Est GFR (Non-Af Amer) 52 (> 60) L 11/11/17 05:23 Glucose 119 mg/dL (70-105) H 11/11/17 05:23 POC Glucose 102 mg/dL (70-99) H 11/11/17 05:31 Urine Protein 30 mg/dL (Neg-Trace) H 11/10/17 19:15 Ur Squamous Epith Cells Moderate per lpf (None-Few) H 11/10/17 19:15 Vancomycin Trough 22 mcg/mL (5-10) H 11/10/17 14:04 Enterobacteriac sp PCR DETECTED (Not Detect) A 11/09/17 12:20 E. coli (PCR) DETECTED (Not Detect) A 11/09/17 12:20 H & H 11/11/17 Range/Units 05:23 Hgb 8.9 L (12.9-16.9) g/dL Hct 28.0 L (37.5-50.1) % All other labs normal. Consult Discharge Plan - Plan Referrals: Curt Sainz MD [Primary Care Provider] -
[2017-11-11] MEDS ORDERED: Vancomycin 1,000 MG VIAL ONE (09:24)
[2017-11-11] MEDS ORDERED: Lidocaine 1% 20 ML MDV ONE (09:24)
[2017-11-11] MEDS ORDERED: Naloxone 0.4 MG/ML INJ IVP PRN (10:42)
[2017-11-11] MEDS ORDERED: Dextrose Gel 15 GM/37.5 ML TUBE PO PRN ×2 (10:42)
[2017-11-11] MEDS ORDERED: Acetaminophen 325 MG TABLET PO PRN (10:42)
[2017-11-11] MEDS ORDERED: Warfarin perPT PO PRN (10:42)
[2017-11-11] MEDS ORDERED: D5% in Water 1,000 ML IVC PRN (10:42)
[2017-11-11] MEDS ORDERED: *HR* Dextrose 50 % in Water (Syg) 50 ML SYRINGE IVP PRN (10:42)
--- NOTE | 2017-11-11 10:46 | Operative Note ---
Date of procedure: 11/11/17 Pre-op diagnosis: Right foot charcot, abscess Post-op diagnosis: same Procedure: incision and drainage right foot debridement of bone right foot Implants: none Complications: none Anesthesia: MAC Local Anesthetics: 1% Lidocaine HCL SubQ (cc) Surgeon: Henrry Leone Was there an payroll and benefits assistant present: No Estimated blood loss (cc): 40 Specimen: path-right foot bone, soft tissue, right foot tissue culture and wound cult Condition: stable Disposition: PACU Procedure in Detail: Indications: 51-year-old diabetic male with history of right Charcot foot and plantar foot ulceration became septic with erythema going from the foot up the leg. Patient was found to have fluid collection under the ulceration on the right foot and prominent bone. Decision was made to proceed with an incision and drainage of the right foot and debridement of bone. Nature of the procedure , risks first benefits potential complications and consequences of surgery and his condition discussed at length. No guarantees were made as to the outcome. It was explained that this may be a staged procedure and he could require more surgery in the future. Informed consent in that signed and all questions answered. Patient was taken preoperative holding and to the operating room. A tourniquet was applied but not inflated during the entire procedure. 1% lidocaine plain was injected into the patient's right foot. The right foot was scrubbed prepped and draped in the usual sterile fashion and the following procedures began. Incision and drainage right foot. Attention was directed to the plantar aspect of the patient's right foot where a #15 blade was used to make an incision through and surrounding the plantar foot ulceration. The incision was made down to the level of the deep fascia and then to the level of the bone. Viscous serous fluid was expelled from the plantar aspect of the right foot and bursal sac from his chronic Charcot which was filled with fluid was encountered. Cultures of fluid were sent to microbiology. Bursal sac was excised as much as possible through the plantar foot and sent to pathology and a portion to microbiology. Attention was then directed to the lateral foot where skin incision was made full-thickness down to the level of the bone. Through the plantar incision the bone was felt in felt to be prominent. More of the bursal sac was encountered and excised. Debridement of bone right foot. Using a combination of the sagittal saw, ronjeur and osteotome the bone on the plantar midfoot which was prominent was cut and removed. A rasp was utilized to smooth the surface until no prominent bone was felt to be present over the site of ulceration. Should be noted that the bone was felt to be of hard quality. A portion of the bone excised was sent to pathology. The pulse lavage with 3 g of vancomycin was utilized with normal sterile saline to irrigate the site. Upon reinspection bone was felt to be smooth and no further fluid could be expressed. The lateral wound was closed using 0 Prolene. The plantar foot wound was deemed adequate for partial closure and 0 Prolene was used to do this with the central portion where the ulceration was present packed open with iodoform packing. Postoperative bandaging abdominal pads, 4 x 4 gauze, Kerlix, and an Dominic wrap. Patient was given strict instructions to remain nonweightbearing to the right lower extremity. He will return to the floor where he will continue IV antibiotics.
--- NOTE | 2017-11-11 10:47 | Anesthesia Evaluation Post Op ---
Date of Encounter: 11/11/17 Time of Encounter: 10:40 - Vital Signs Vital Signs: Vital Signs/O2 Sat/Glucose, Most Current Temp Pulse Resp BP Pulse Ox 11/11/17 07:50 16 96 11/11/17 07:09 97.9 F 82 18 117/67 94 - Lungs Lungs: Clear Ascult./Percussion - Airway Airway: Non-obstructed - Cardiovascular Regular Rate - Mental Status Mental Status: Alert & Oriented, Answers Appropriately - Pain Pain Scale: 0 - Nausea Vomiting Nausea Vomiting: Not Present - Hydration Hydration: NPO - Discharge PostOp Status: Transfer Patient to floor
[2017-11-11] MEDS: 0.9 % Sodium Chloride 1,000 ML IVC SCH ×2 (11:30→21:01)
[2017-11-11] MEDS: Insulin LISPRO 300 UNITS/3 ML VIAL SQ SCH ×3 (14:45→20:52)
--- NOTE | 2017-11-11 15:55 | Internal Med Progress Note ---
Date of Encounter: 11/11/17 Time of Encounter: 11:40 - Assessment and plan (1) Bacteremia Current Visit: Yes Status: Acute Assessment and plan: Likely due to infected foot ulcer. One out of 2 blood cultures grow gram- negative rods, serology positive for Enterobacteriaceae/E.coli. Continue IV antibiotics- Zosyn, follow up final cultures. ID consult appreciated; Remaining plan as below. (2) Diabetic foot ulcer Current Visit: Yes Status: Acute Assessment and plan: Patient has chronic right diabetic foot ulcer due to Charcot arthropathy. Possible acute infection. Wound culture grows Enterobacter cloacae. Associated with gram-negative bacteremia. Podiatry consulted, patient underwent I&D and bone debridement of right foot today; local wound care per Podiatry; PT/OT evaluation; MRI for shows significant degenerative changes compatible with Charcot arthropathy, possible underlying phlegmon, no discrete abscess or osteomyelitis. ESR 63, CRP normal. Continue IV Zosyn, hold vancomycin per ID; Infectious diseases consult appreciated; Right foot non-weight bearing; Qualifiers: Diabetic foot ulcer location: other Diabetes mellitus type: type 2 Laterality: right Non-pressure ulcer stage: unspecified non-pressure ulcer stage Qualified Code(s): E11.621 - Type 2 diabetes mellitus with foot ulcer; L97.519 - Non-pressure chronic ulcer of other part of right foot with unspecified severity (3) Sepsis Current Visit: Yes Status: Acute Assessment and plan: Presented with fever, tachycardia, leukocytosis with bacteremia. Improving. Lactic acid noted to be normal. Continue antibiotics and follow up cultures. Qualifiers: Sepsis type: Escherichia coli Qualified Code(s): A41.51 - Sepsis due to Escherichia coli [E. coli] (4) DVT prophylaxis Current Visit: Yes Status: Acute (5) Diabetes Current Visit: Yes Status: Chronic Assessment and plan: Blood sugars noted to be well controlled. Continue Accu-Chek blood glucose monitoring with basal bolus insulin regimen. Diabetic diet. Check hemoglobin A1c. Qualifiers: Diabetes mellitus type: type 2 Diabetes mellitus penitentiary insulin use: with penitentiary use Diabetes mellitus complication status: with circulatory complication Diabetes mellitus complication detail: with other circulatory complications Qualified Code(s): E11.59 - Type 2 diabetes mellitus with other circulatory complications; Z79.4 - care home (current) use of insulin (6) HTN (hypertension) Current Visit: Yes Status: Chronic Qualifiers: Hypertension type: essential hypertension Qualified Code(s): I10 - Essential (primary) hypertension (7) HLD (hyperlipidemia) Current Visit: Yes Status: Chronic Qualifiers: Hyperlipidemia type: mixed hyperlipidemia Qualified Code(s): E78.2 - Mixed hyperlipidemia (8) A-fib Current Visit: Yes Status: Chronic Assessment and plan: Currently rate controlled. Continue telemetry monitoring, anticoagulation with Coumadin. Qualifiers: Atrial fibrillation type: chronic Qualified Code(s): I48.2 - Chronic atrial fibrillation (9) CKD (chronic kidney disease), stage III Current Visit: Yes Status: Chronic (10) Asthma Current Visit: Yes Status: Chronic Qualifiers: Asthma severity: mild Asthma persistence: intermittent Asthma complication type: unspecified Qualified Code(s): J45.20 - Mild intermittent asthma, uncomplicated (11) Morbid obesity with BMI of 50.0-59.9, adult Current Visit: Yes Status: Chronic - Time Spent With Patient Total time spent is greater than 50% in coordination of care (as documented) at patient's floor/unit and/or counseling patient: - Subjective Interval history: No new complaints; returned from OR after right foot ulcer debridement; denies foot pain; no nausea, vomiting, dyspnea or chest pain; - Constitutional Vitals: Temp Pulse Resp BP Pulse Ox 97.9 F 82 16 117/67 96 11/11/17 07:09 11/11/17 07:09 11/11/17 07:50 11/11/17 07:09 11/11/17 08:00 General appearance: Present: A&O X 3, morbidly obese, answers questions appropriately - Respiratory Respiratory exam: Present: CTAB. Absent: accessory muscle use, rales, rhonchi, wheezes - Cardiovascular Cardiovascular exam: Present: RRR, +S1, +S2. Absent: diastolic murmur, gallop, rubs, systolic murmur - GI/Abdominal GI/Abdominal exam: Present: normal bowel sounds, soft, no peritoneal signs. Absent: distended, tenderness - Extremities Exam Extremities exam: Present: pedal edema (chronic stasis dermatitis B/L), warm, radial pulses palpable and symmetrical. Absent: calf tenderness, cyanotic Additional comments: right foot in surgical dressing Internal Medicine: Result - Labs CBC & Chem 7: 11/11/17 05:23 11/11/17 05:23 Labs: Short CBC 06/30/18 Range/Units 05:23 WBC 8.1 (4.3-11.1) K/mcL Hgb 8.9 L (12.9-16.9) g/dL Hct 28.0 L (37.5-50.1) % Plt Count 155 (140-400) K/mcL Neutrophils # 4.8 (1.6-8.9) K/mcL BMP 11/11/17 05:23 Sodium 140 Potassium 4.2 Chloride 106 Carbon Dioxide 27 BUN 15 Creatinine 1.44 H Glucose 119 H Calcium 8.6 Urine 11/10/17 Range/Units 19:15 Urine Color Yellow (Yellow) Urine Clarity Clear (Clear) Urine pH 6.0 (5.0-8.0) pH Units Ur Specific [place] 1.014 (1.010-1.025) Urine Protein 30 H (Neg-Trace) mg/dL Urine Glucose (UA) Normal (Normal) mg/dL - ABG Interpretation ABG results: PT/INR, D-dimer PT 31.7 Seconds (9.4-12.1) H 11/11/17 05:23 Consult Discharge Plan - Plan Referrals: Curt Sainz MD [Primary Care Provider] -
[2017-11-11] MEDS: *HR* HYDROcodone/Acet 5/325 mg TABLET PO PRN (20:48)
[2017-11-11] MEDS: Gabapentin 100 MG CAPSULE PO SCH (20:49)
[2017-11-11] MEDS: Insulin DETEMIR 100 UNIT/ML X5UNITS SQ SCH (20:49)
[2017-11-12] MEDS: Budesonide/Formoterol 80/4.5 MDI IH SCH ×2 (07:59→20:20)
[2017-11-12 08:00] LABS: INR 2.4; Prothrombin Time 27.6 Seconds (9.4-12.1)
[2017-11-12 08:07] LABS: BUN/Creatinine Ratio 10 (6-26); Blood Urea Nitrogen 15 mg/dL (6-20); Calcium 8.3 mg/dL (8.6-10.3); Carbon Dioxide 26 mEq/L (23-29); Chloride 106 mEq/L (98-107); Glucose 132 mg/dL (70-105); Osmolality,Calculated 291 (280-300); Potassium 4.4 mEq/L (3.5-5.1); Sodium 139 mEq/L (136-145); eGFR For African Americans > 60 (> 60); eGFR For Non-African Americans 52 (> 60)
[2017-11-12 08:19] LABS: Estimated Average Glucose 180 mg/dl; Hemoglobin A1C 7.9 %
[2017-11-12] MEDS: Piperacillin/Tazobactam 3.375 GM in 0.9 % Sodium Chloride Mini Bag 100 ML IVPB SCH ×3 (08:34→23:58)
[2017-11-12] MEDS: Furosemide 40 MG TABLET PO SCH (08:34)
[2017-11-12] MEDS: Insulin LISPRO 300 UNITS/3 ML VIAL SQ SCH ×4 (08:35→20:24)
[2017-11-12] MEDS: Insulin DETEMIR 100 UNIT/ML X5UNITS SQ SCH ×2 (08:37→20:24)
[2017-11-12] MEDS: *HR* HYDROcodone/Acet 5/325 mg TABLET PO PRN ×2 (09:10→16:52)
[2017-11-12] MEDS: 0.9 % Sodium Chloride 1,000 ML IVC SCH (09:13)
[2017-11-12] MEDS: hydrALAZINE 25 MG TABLET PO SCH ×2 (16:41→23:56)
--- NOTE | 2017-11-12 17:09 | Internal Med Progress Note ---
Date of Encounter: 11/12/17 Time of Encounter: 10:25 - Assessment and plan (1) Bacteremia Current Visit: Yes Status: Acute Assessment and plan: Likely due to infected foot ulcer. One out of 2 blood cultures grow E.coli, serology positive for Enterobacteriaceae/E.coli. Continue IV antibiotics- Zosyn , follow up final sensitivities. ID consult appreciated; Remaining plan as below. (2) Diabetic foot ulcer Current Visit: Yes Status: Acute Assessment and plan: Patient has chronic right diabetic foot ulcer due to Charcot arthropathy. Possible acute infection. Initial Wound culture grows Enterobacter cloacae. Associated with E.coli bacteremia. Podiatry consulted, patient underwent I&D and bone debridement of right foot POD-1; operative wound cultures grow GNR; local wound care per Podiatry; PT/OT evaluation pending; MRI for shows significant degenerative changes compatible with Charcot arthropathy, possible underlying phlegmon, no discrete abscess or osteomyelitis. ESR 63, CRP normal. Continue IV Zosyn; Infectious diseases on board; Right foot non-weight bearing; Qualifiers: Diabetic foot ulcer location: other Diabetes mellitus type: type 2 Laterality: right Non-pressure ulcer stage: unspecified non-pressure ulcer stage Qualified Code(s): E11.621 - Type 2 diabetes mellitus with foot ulcer; L97.519 - Non-pressure chronic ulcer of other part of right foot with unspecified severity (3) Sepsis Current Visit: Yes Status: Acute Assessment and plan: Presented with fever, tachycardia, leukocytosis with bacteremia. Improving. Lactic acid noted to be normal. Continue antibiotics and follow up cultures. Qualifiers: Sepsis type: Escherichia coli Qualified Code(s): A41.51 - Sepsis due to Escherichia coli [E. coli] (4) DVT prophylaxis Current Visit: Yes Status: Acute (5) Diabetes Current Visit: Yes Status: Chronic Assessment and plan: Blood sugars noted to be well controlled. Continue Accu-Chek blood glucose monitoring with basal bolus insulin regimen. Diabetic diet. hemoglobin A1c noted to be 7.9%. Qualifiers: Diabetes mellitus type: type 2 Diabetes mellitus correction insulin use: with middle or intermediate school principal use Diabetes mellitus complication status: with circulatory complication Diabetes mellitus complication detail: with other circulatory complications Qualified Code(s): E11.59 - Type 2 diabetes mellitus with other circulatory complications; Z79.4 - [facility] (current) use of insulin (6) HTN (hypertension) Current Visit: Yes Status: Chronic Assessment and plan: Blood pressure is elevated. Continue Coreg, start PO Hydralazine; Qualifiers: Hypertension type: essential hypertension Qualified Code(s): I10 - Essential (primary) hypertension (7) HLD (hyperlipidemia) Current Visit: Yes Status: Chronic Qualifiers: Hyperlipidemia type: mixed hyperlipidemia Qualified Code(s): E78.2 - Mixed hyperlipidemia (8) A-fib Current Visit: Yes Status: Chronic Assessment and plan: Currently rate controlled. Continue telemetry monitoring, anticoagulation with Coumadin. Qualifiers: Atrial fibrillation type: chronic Qualified Code(s): I48.2 - Chronic atrial fibrillation (9) CKD (chronic kidney disease), stage III Current Visit: Yes Status: Chronic Assessment and plan: Serum creatinine noted to be 1.45, within his baseline. (10) Asthma Current Visit: Yes Status: Chronic Qualifiers: Asthma severity: mild Asthma persistence: intermittent Asthma complication type: unspecified Qualified Code(s): J45.20 - Mild intermittent asthma, uncomplicated (11) Morbid obesity with BMI of 50.0-59.9, adult Current Visit: Yes Status: Chronic - Time Spent With Patient Total time spent is greater than 50% in coordination of care (as documented) at patient's floor/unit and/or counseling patient: - Subjective Interval history: No new complaints; mild foot pain, controlled with PO meds; no nausea, vomiting , dyspnea or chest pain; - Constitutional Vitals: Temp Pulse Resp BP Pulse Ox 98.9 F 87 14 120/53 94 11/12/17 15:31 11/12/17 15:31 11/12/17 15:31 11/12/17 15:31 11/12/17 15:31 General appearance: Present: A&O X 3, morbidly obese, answers questions appropriately - Respiratory Respiratory exam: Present: CTAB. Absent: accessory muscle use, rales, rhonchi, wheezes - Cardiovascular Cardiovascular exam: Present: RRR, +S1, +S2. Absent: diastolic murmur, gallop, rubs, systolic murmur Internal Medicine: Result - Labs CBC & Chem 7: 11/11/17 05:23 11/12/17 06:20 Labs: BMP 11/12/17 06:20 Sodium 139 Potassium 4.4 Chloride 106 Carbon Dioxide 26 BUN 15 Creatinine 1.45 H Glucose 132 H Calcium 8.3 L - ABG Interpretation ABG results: PT/INR, D-dimer PT 27.6 Seconds (9.4-12.1) H 11/12/17 06:20 Consult Discharge Plan - Plan Referrals: Curt Sainz MD [Primary Care Provider] -
--- NOTE | 2017-11-12 17:10 | Podiatry Progress Note ---
Date of Encounter: 11/12/17 Time of Encounter: 15:00 - Assessment and Plan (1) Ulcer of right foot with fat layer exposed Current Visit: Yes Status: Acute reviewed surgical procedure and course of recovery. discussed current culture results. erythema looks less intense today. c/w flush/pack plantar foot. no purulence expressed. good hemostasis. non-weight bearing right lower extremity. (2) Charcot's joint of foot Current Visit: Yes Status: Acute see above Qualifiers: Laterality: right Qualified Code(s): M14.671 - Charcot's joint, right ankle and foot Objective - Vital Signs Vital Signs: Vital Signs Temp Pulse Resp BP Pulse Ox 11/12/17 15:31 98.9 F 87 14 120/53 94 11/12/17 11:19 98.2 F 91 15 125/62 95 11/12/17 08:15 97 11/12/17 07:59 16 97 11/12/17 06:32 99.5 F 100 14 161/84 97 11/12/17 04:06 99.8 F H 96 15 176/70 94 11/11/17 23:19 100.0 F H 96 15 131/58 95 11/11/17 21:01 16 98 11/11/17 19:55 99.0 F 86 15 106/70 96 Intake and Output 11/12/17 11/12/17 11/12/17 07:59 15:59 23:59 Intake Total 1840 / 1840 1060 / 1060 Output Total 1200 / 1200 1400 / 1400 Balance 640 / 640 -340 / -340 Intake: IV Fluids 1100 / 1100 100 / 100 0.9 % Sodium Chloride 1,000 ML 1000 / 1000 @ 100 mls/hr IVC .Q10H [facility] Rx#: [id number] Zosyn 3.375 GM In 0.9 % Sodium 100 / 100 100 / 100 Chloride (Mini-Bag +) 100 ML @ 25 mls/hr IVPB Q8HR [facility] Rx#: [id number] Oral 740 / 740 960 / 960 Output: Urine 1200 / 1200 1400 / 1400 Other: Meal Lunch Percent of Meal Consumed 100% Weight 188.1 kg Blood Glucose* 145 204 Patient Weight 11/12/17 23:59 Weight 188.1 kg - Lab Result Diagrams: 11/11/17 05:23 11/12/17 06:20 Labs: Abnormal lab results RBC 2.98 M/mcL (4.19-5.50) L 11/11/17 05:23 Hgb 8.9 g/dL (12.9-16.9) L 11/11/17 05:23 Hct 28.0 % (37.5-50.1) L 11/11/17 05:23 RDW 14.6 % (11.5-14.5) H 11/11/17 05:23 ESR 63 mm/hr (0-10) H 11/09/17 12:20 PT 27.6 Seconds (9.4-12.1) H 11/12/17 06:20 Creatinine 1.45 mg/dL (0.70-1.30) H 11/12/17 06:20 Est GFR (Non-Af Amer) 52 (> 60) L 11/12/17 06:20 Glucose 132 mg/dL (70-105) H 11/12/17 06:20 POC Glucose 204 mg/dL (70-99) H 11/12/17 15:27 Hemoglobin A1c 7.9 % (-5.6) H 11/11/17 05:23 Calcium 8.3 mg/dL (8.6-10.3) L 11/12/17 06:20 Urine Protein 30 mg/dL (Neg-Trace) H 11/10/17 19:15 Ur Squamous Epith Cells Moderate per lpf (None-Few) H 11/10/17 19:15 Vancomycin Trough 22 mcg/mL (5-10) H 11/10/17 14:04 Enterobacteriac sp PCR DETECTED (Not Detect) A 11/09/17 12:20 E. coli (PCR) DETECTED (Not Detect) A 11/09/17 12:20 Microbiology, Last 48 Hours 11/11/17 09:40 Wound Culture - Preliminary Right Foot Gram Negative Jorge 11/11/17 09:40 Surgical Biopsy Culture - Preliminary Right Foot Gram Negative Jorge 11/09/17 15:45 Wound Culture - Final Right Foot Enterobacter cloacae complex Consult Discharge Plan - Plan Referrals: Curt Sainz MD [Primary Care Provider] -
[2017-11-12] MEDS ORDERED: *HR* Warfarin 10 MG TABLET PO ONE (18:00)
[2017-11-12] MEDS: Gabapentin 100 MG CAPSULE PO SCH (20:23)
[2017-11-13 03:59] LABS: INR 2.1; Prothrombin Time 23.9 Seconds (9.4-12.1)
[2017-11-13] MEDS: Budesonide/Formoterol 80/4.5 MDI IH SCH ×2 (07:48→20:19)
[2017-11-13] MEDS: Insulin LISPRO 300 UNITS/3 ML VIAL SQ SCH ×4 (08:12→20:25)
[2017-11-13] MEDS: hydrALAZINE 25 MG TABLET PO SCH ×2 (09:16→17:07)
[2017-11-13] MEDS: Piperacillin/Tazobactam 3.375 GM in 0.9 % Sodium Chloride Mini Bag 100 ML IVPB SCH (09:26)
[2017-11-13] MEDS: Insulin DETEMIR 100 UNIT/ML X5UNITS SQ SCH ×2 (09:27→20:25)
[2017-11-13] MEDS: Furosemide 40 MG TABLET PO SCH (09:27)
[2017-11-13 09:52] LABS: Basophils # 0.1 K/mcL (0.0-0.2); Basophils % 0.5 %; Eosinophils # 0.4 K/mcL (0.0-0.6); Eosinophils % 3.9 %; Hematocrit 27.6 % (37.5-50.1); Hemoglobin 8.4 g/dL (12.9-16.9); Immature Granulocytes % 0.4 % (0-4); Lymphocytes # 1.6 K/mcL (0.6-4.6); Lymphocytes % 16.1 %; Mean Corpuscular HGB Conc 30.4 g/dL (31.6-35.5); Mean Corpuscular Hemoglobin 28.5 pg (28.0-33.3); Mean Corpuscular Volume 93.6 fL (83.0-100.0); Mean Platelet Volume 10.8 fL (9.4-12.4); Monocytes # 1.2 K/mcL (0.0-1.3); Monocytes % 11.3 %; Neutrophils # 6.9 K/mcL (1.6-8.9); Platelet Count 208 K/mcL (140-400); Red Blood Count 2.95 M/mcL (4.19-5.50); Red Cell Distribution Width 14.6 % (11.5-14.5); Segmented Neutrophils % 67.8 %
[2017-11-13 10:02] LABS: Calcium 8.5 mg/dL (8.6-10.3); Potassium 4.3 mEq/L (3.5-5.1)
--- NOTE | 2017-11-13 12:16 | Infectious Disease Progress No ---
Date of Encounter: 11/13/17 Time of Encounter: 12:13 - Assessment and Plan (1) Severe sepsis Current Visit: Yes Status: Acute The patient had three SIRS criteria with KELYS on admission. Likely secondary to bacteremia and right foot infection. Improved. WBC improved. Tachycardia and fevers resolved. WBC normalized. Blood cultures drawn 11/09/17 were positive 1/2 sets for E. coli. Repeat blood cultures drawn 11/13/17 x 2 sets are pending. (2) Bacteremia due to Escherichia coli Current Visit: Yes Status: Acute Causative organism: E. coli Source unclear, but possibly right foot infection. Blood cultures drawn 11/08/17 are positive 1/2 sets. Repeat blood cultures 11/13/17 are pending x 2 sets. The patient has multiple allergies documented, but he is unsure of the nature of the allergies, but denies history of anaphylaxis. Discontinue Zosyn. Start Levaquin 750mg IV daily. The patient has a documented allergy to levaquin , but states he thinks he had a rash. Monitor closely for adverse/allergic reactions. Duration of treatment depends on the clinical picture. Monitor renal function and dose-adjust antibiotics. (3) Diabetic foot ulcer Current Visit: Yes Status: Acute Location: Right plantar/lateral aspect. Causative organism: Enterobacter cloacae. Likely secondary to Charcot arthropathy. No osteomyelitis noted on imaging. Podiatry consulted and following. Status post I & D of the right foot with debridement of the bone 11/11/[address] Leone. Operative note reviewed. Serous fluid noted in the bursa sac. No osteomyelitis noted intra-op. Cultures as above. Pre-op ESR 63, CRP 9. Wound care and activity restrictions per the podiatry team. Discontinue Zosyn. Start levaquin as above. Duration of treatment depends on the clinical picture. Monitor renal function and dose-adjust antibiotics. Qualifiers: Diabetic foot ulcer location: other Diabetes mellitus type: type 2 Laterality: right Non-pressure ulcer stage: unspecified non-pressure ulcer stage Qualified Code(s): E11.621 - Type 2 diabetes mellitus with foot ulcer; L97.519 - Non-pressure chronic ulcer of other part of right foot with unspecified severity (4) Rqhpq-rr-[id number] kidney injury Current Visit: Yes Status: Acute Likely secondary to sepsis + vanc toxicity. Continue trend. Dose-adjust medications. Avoid nephrotoxins. Vancomycin discontinued. Qualifiers: Acute renal failure type: unspecified Chronic kidney disease stage: stage 4 (severe) Qualified Code(s): N17.9 - Acute kidney failure, unspecified; N18.4 - Chronic kidney disease, stage 4 (severe) (5) A-fib Current Visit: Yes Status: Chronic Rate controlled. Management per the primary team. Qualifiers: Atrial fibrillation type: chronic Qualified Code(s): I48.2 - Chronic atrial fibrillation (6) Allergy to multiple antibiotics Current Visit: Yes Status: Acute Patient reports multiple allergies, but no anaphylaxis. Will trial Levaquin and see how the patient does. (7) Morbid obesity with BMI of 50.0-59.9, adult Current Visit: Yes Status: Chronic - Subjective Interval history: Patient seen and examined. No acute events noted overnight. Patient states that overall he feels okay. Denies fevers, chills, or rigors. Denies chest pain, shortness of breath, or cough. Denies nausea, vomiting, or diarrhea. Denies abdominal pain, urinary complaints, or appetite changes. Denies pain at the surgical site. Denies oral thrush or skin lesions. Infect Dis PN-Objective Data - Labs CBC & Chem 7: 11/13/17 09:33 11/13/17 09:33 Labs: Laboratory Results - last 24 hr 11/12/17 11/12/17 11/13/17 15:27 20:16 03:10 WBC RBC Hgb Hct MCV MCH MCHC RDW Plt Count MPV Immature Gran % Seg Neutrophils % Lymphocytes % Monocytes % Eosinophils % Basophils % Neutrophils # Lymphocytes # Monocytes # Eosinophils # Basophils # PT 23.9 H INR 2.1 Sodium Potassium Chloride Carbon Dioxide BUN Creatinine Est GFR ( Amer) Est GFR (Non-Af Amer) BUN/Creatinine Ratio Glucose POC Glucose 204 H 152 H Calculated Osmolality Calcium 11/13/17 11/13/17 11/13/17 07:40 09:33 09:33 WBC 10.2 RBC 2.95 L Hgb 8.4 L Hct 27.6 L MCV 93.6 MCH 28.5 MCHC 30.4 L RDW 14.6 H Plt Count 208 MPV 10.8 Immature Gran % 0.4 Seg Neutrophils % 67.8 Lymphocytes % 16.1 Monocytes % 11.3 Eosinophils % 3.9 Basophils % 0.5 Neutrophils # 6.9 Lymphocytes # 1.6 Monocytes # 1.2 Eosinophils # 0.4 Basophils # 0.1 PT INR Sodium 140 Potassium 4.3 Chloride 107 Carbon Dioxide 27 BUN 15 Creatinine 1.56 H Est GFR ( Amer) 57 L Est GFR (Non-Af Amer) 47 L BUN/Creatinine Ratio 10 Glucose 111 H POC Glucose 96 Calculated Osmolality 292 Calcium 8.5 L 11/13/17 11:19 WBC RBC Hgb Hct MCV MCH MCHC RDW Plt Count MPV Immature Gran % Seg Neutrophils % Lymphocytes % Monocytes % Eosinophils % Basophils % Neutrophils # Lymphocytes # Monocytes # Eosinophils # Basophils # PT INR Sodium Potassium Chloride Carbon Dioxide BUN Creatinine Est GFR ( Amer) Est GFR (Non-Af Amer) BUN/Creatinine Ratio Glucose POC Glucose 163 H Calculated Osmolality Calcium Cultures: Cultures 11/11/17 09:40 Surgical Biopsy Culture - Final Right Foot Enterobacter cloacae complex 11/13/17 09:33 Blood Culture - Preliminary Peripheral Venipuncture Culture is incubating and being continuously monitored for growth. Final report to follow. 11/13/17 09:33 Blood Culture - Preliminary Peripheral Venipuncture Culture is incubating and being continuously monitored for growth. Final report to follow. 11/11/17 09:40 Wound Culture - Preliminary Right Foot Gram Negative Jorge 11/09/17 15:45 Wound Culture - Final Right Foot Enterobacter cloacae complex Serology 11/10/17 Range/Units 19:15 Urine Color Yellow (Yellow) Urine Clarity Clear (Clear) Urine pH 6.0 (5.0-8.0) pH Units Ur Specific [place] 1.014 (1.010-1.025) Urine Protein 30 H (Neg-Trace) mg/dL Urine Glucose (UA) Normal (Normal) mg/dL Urine Ketones Negative (Negative) mg/dL Urine Blood Negative (Negative) Urine Nitrite Negative (Negative) Urine Bilirubin Negative (Negative) Urine Urobilinogen Normal (Normal) mg/dL Ur Leukocyte Esterase Negative (Negative) Urine Microscopic RBC 0-3 (0-3) per hpf Urine Microscopic WBC 0-3 (0-3) per hpf Ur Squamous Epith Cells Moderate H (None-Few) per lpf Urine Bacteria None Seen (None-Few) per hpf Hyaline Casts None Seen (None-Few) per lpf Ur Culture Indicated? NO (NO) Exam - Constitutional Vitals: Temp Pulse Resp BP Pulse Ox 98.6 F 91 16 119/61 95 11/13/17 11:14 11/13/17 11:14 11/13/17 11:14 11/13/17 11:14 11/13/17 11:14 General appearance: cooperative, morbidly obese, no acute distress - Head Head exam: Present: atraumatic, normal inspection, normocephalic - Eye Eye exam: Present: EOMI, normal appearance, PERRL Pupils: Present: normal accommodation - ENT ENT exam: Present: mucous membranes moist - Neck Neck exam: Present: normal inspection - Respiratory Respiratory exam: Present: CTAB. Absent: rales, respiratory distress, rhonchi, wheezes - Cardiovascular Cardiovascular exam: Present: RRR, +S1, +S2 - GI/Abdominal GI/Abdominal exam: Present: distended (obese), normal bowel sounds, soft. Absent: tenderness - Extremities Exam Extremities exam: Present: pedal edema (2+ BLE). Absent: joint swelling, normal inspection (Venous stasis dermatitis noted to the BLE.), tenderness Additional comments: Right foot dressing C/D/I. - Neurological Exam Neurological exam: Present: alert, oriented X3, no focal deficits - Psychiatric Psychiatric exam: Present: normal affect, normal mood - Skin Skin exam: Present: dry, intact, normal color, warm Consult Discharge Plan - Plan Referrals: Curt Sainz MD [Primary Care Provider] - - Attending Attestation I examined this patient and my medical decision-making was reviewed with the Resident Physician. I agree with the documented findings, disposition and treatment plan as described except to the extent set forth below.
[2017-11-13] MEDS: Levofloxacin 750 MG/150 ML 750 MG/150 ML BAG IVPB SCH (14:13)
--- NOTE | 2017-11-13 17:37 | Internal Med Progress Note ---
Date of Encounter: 11/13/17 Time of Encounter: 12:45 - Assessment and plan (1) Bacteremia Current Visit: Yes Status: Acute Assessment and plan: Likely due to infected foot ulcer. One out of 2 blood cultures grow E.coli; ID on board; antibiotics changed to IV Levaquin; repeat blood cultures are negative. Remaining plan as below; (2) Diabetic foot ulcer Current Visit: Yes Status: Acute Assessment and plan: Patient has chronic right diabetic foot ulcer due to Charcot arthropathy. Possible acute infection. Initial Wound culture grows Enterobacter cloacae. Associated with E.coli bacteremia. Podiatry consulted, patient underwent I&D and bone debridement of right foot POD-2; operative wound cultures grow Enterobacter; local wound care per Podiatry; may need repeat debridement in OR; PT/OT evaluation pending; MRI for shows significant degenerative changes compatible with Charcot arthropathy, possible underlying phlegmon, no discrete abscess or osteomyelitis. ESR 63, CRP normal. Continue IV Levaquin; Infectious diseases on board; Right foot non-weight bearing; Qualifiers: Diabetic foot ulcer location: other Diabetes mellitus type: type 2 Laterality: right Non-pressure ulcer stage: unspecified non-pressure ulcer stage Qualified Code(s): E11.621 - Type 2 diabetes mellitus with foot ulcer; L97.519 - Non-pressure chronic ulcer of other part of right foot with unspecified severity (3) Sepsis Current Visit: Yes Status: Acute Qualifiers: Sepsis type: Escherichia coli Qualified Code(s): A41.51 - Sepsis due to Escherichia coli [E. coli] (4) DVT prophylaxis Current Visit: Yes Status: Acute (5) Diabetes Current Visit: Yes Status: Chronic Assessment and plan: Blood sugars noted to be well controlled. Continue Accu-Chek blood glucose monitoring with basal bolus insulin regimen. Diabetic diet. hemoglobin A1c noted to be 7.9%. 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 Continue telemetry monitoring, anticoagulation with Coumadin. Qualifiers: Atrial fibrillation type: chronic Qualified Code(s): I48.2 - Chronic atrial fibrillation (9) CKD (chronic kidney disease), stage III Current Visit: Yes Status: Chronic Assessment and plan: Serum creatinine noted to be 1.56, monitor closely; antibiotics to be dosed per current GFR; (10) Asthma Current Visit: Yes Status: Chronic Qualifiers: Asthma severity: mild Asthma persistence: intermittent Asthma complication type: unspecified Qualified Code(s): J45.20 - Mild intermittent asthma, uncomplicated (11) Morbid obesity with BMI of 50.0-59.9, adult Current Visit: Yes Status: Chronic - Time Spent With Patient Total time spent is greater than 50% in coordination of care (as documented) at patient's floor/unit and/or counseling patient: - Subjective Interval history: No new complaints; improved foot pain; no nausea, vomiting, dyspnea or chest pain; - Constitutional Vitals: Temp Pulse Resp BP Pulse Ox 99.5 F 95 16 146/63 96 11/13/17 16:00 11/13/17 16:00 11/13/17 16:00 11/13/17 16:00 11/13/17 16:00 General appearance: Present: A&O X 3, morbidly obese, answers questions appropriately - Respiratory Respiratory exam: Present: decreased breath sounds (at b/l bases due to thick chest wall), CTAB. Absent: accessory muscle use, rales, rhonchi, wheezes - Cardiovascular Cardiovascular exam: Present: RRR, +S1, +S2. Absent: diastolic murmur, gallop, rubs, systolic murmur Internal Medicine: Result - Labs CBC & Chem 7: 11/13/17 09:33 11/13/17 09:33 Labs: Short CBC 11/13/17 Range/Units 09:33 WBC 10.2 (4.3-11.1) K/mcL Hgb 8.4 L (12.9-16.9) g/dL Hct 27.6 L (37.5-50.1) % Plt Count 208 (140-400) K/mcL Neutrophils # 6.9 (1.6-8.9) K/mcL BMP 11/13/17 09:33 Sodium 140 Potassium 4.3 Chloride 107 Carbon Dioxide 27 BUN 15 Creatinine 1.56 H Glucose 111 H Calcium 8.5 L - ABG Interpretation ABG results: PT/INR, D-dimer PT 23.9 Seconds (9.4-12.1) H 11/13/17 03:10 Consult Discharge Plan - Plan Referrals: Curt Sainz MD [Primary Care Provider] -
[2017-11-13] MEDS ORDERED: *HR* Warfarin 10 MG TABLET PO ONE (18:00)
--- NOTE | 2017-11-13 18:01 | Podiatry Progress Note ---
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 Sutures intact to incision line, small open area to the center of incision line that is 0.4 cm in diameter and probes 3 cm in depth. Plan: Packing removed. Calcium alignate applied to open wound with adpatic over incision lines, 4x4 gauze, kerlix and tape. Change BID or sooner if dressing is saturated. non-weight bearing right lower extremity. Antibiotic per ID. Follow up with Dr. Leone in wound care one week after discharge from hospital in the wound care center. Qualifiers: Laterality: right Qualified Code(s): M14.671 - Charcot's joint, right ankle and foot (4) Cellulitis Current Visit: Yes Status: Acute Qualifiers: Site of cellulitis: extremity Site of cellulitis of extremity: lower extremity Laterality: unspecified laterality Qualified Code(s): L03.119 - Cellulitis of unspecified part of limb Subjective Interval history: Patient is s/p incision and drainage right foot, debridement of bone right foot by Dr. Leone on 11/11/17. Patient is lying in bed with dressing intact and strikethrough drainage observed to dressing. Patient denies any fever, chills, cp, sob or flu like symptoms. Objective - Vital Signs Vital Signs: Vital Signs Temp Pulse Resp BP Pulse Ox 11/13/17 16:00 99.5 F 95 16 146/63 96 11/13/17 11:14 98.6 F 91 16 119/61 95 11/13/17 07:48 16 95 11/13/17 07:36 99.0 F 71 16 118/74 94 11/13/17 03:40 99.0 F 85 17 119/76 92 11/12/17 23:23 98.9 F 84 18 99/63 94 11/12/17 20:20 16 95 11/12/17 19:56 99.0 F 82 15 117/64 92 Intake and Output 11/13/17 11/13/17 11/13/17 07:59 15:59 23:59 Intake Total 100 / 100 820 / 820 150 / 150 Output Total 275 / 275 1575 / 1575 550 / 550 Balance -175 / -175 -755 / -755 -400 / -400 Intake: IV Fluids 100 / 100 100 / 100 150 / 150 Levaquin Premix 750mg/150 mL 150 / 150 750 mg In 150 ml @ 100 mls/hr IVPB DAILY [facility] Rx#:[id number] Zosyn 3.375 GM In 0.9 % Sodium 100 / 100 100 / 100 Chloride (Mini-Bag +) 100 ML @ 25 mls/hr IVPB Q8HR [facility] Rx#: [id number] Oral 720 / 720 0 / 0 Output: Urine 275 / 275 1575 / 1575 550 / 550 Other: Meal Lunch Percent of Meal Consumed 75% Stool Size Large Stool Consistency soft formed Stool Color Brown # Bowel Movements 1 Weight 188.2 kg Blood Glucose* 96 163 164 Patient Weight 11/13/17 23:59 Weight 188.2 kg - Exam Exam: General appearance: alert awake oriented X 3. Calm and pleasant, no acute distress.. Vascular:No evidence of cyanosis, pallor or rubor, Edema graded at 1+/4, Skin Tempature warm, No calf pain with manual compression. capillary refill time is immediate to digits. Postop Exam: S/P Sutures intact to incision line, small open area to the center of incision line that is 0.4 cm in diameter and probes 3 cm in depth. Moderate amount of serous drainage observed to dressing. No odor, no erythema, no streaking. Minimal edema. - Lab Result Diagrams: 11/13/17 09:33 11/14/17 05:36 Labs: Abnormal lab results RBC 2.95 M/mcL (4.19-5.50) L 11/13/17 09:33 Hgb 8.4 g/dL (12.9-16.9) L 11/13/17 09:33 Hct 27.6 % (37.5-50.1) L 11/13/17 09:33 MCHC 30.4 g/dL (31.6-35.5) L 11/13/17 09:33 RDW 14.6 % (11.5-14.5) H 11/13/17 09:33 ESR 63 mm/hr (0-10) H 11/09/17 12:20 PT 23.9 Seconds (9.4-12.1) H 11/13/17 03:10 Creatinine 1.56 mg/dL (0.70-1.30) H 11/13/17 09:33 Est GFR ( Amer) 57 (> 60) L 11/13/17 09:33 Est GFR (Non-Af Amer) 47 (> 60) L 11/13/17 09:33 Glucose 111 mg/dL (70-105) H 11/13/17 09:33 POC Glucose 164 mg/dL (70-99) H 11/13/17 16:04 Hemoglobin A1c 7.9 % (-5.6) H 11/11/17 05:23 Calcium 8.5 mg/dL (8.6-10.3) L 11/13/17 09:33 Urine Protein 30 mg/dL (Neg-Trace) H 11/10/17 19:15 Ur Squamous Epith Cells Moderate per lpf (None-Few) H 11/10/17 19:15 Vancomycin Trough 22 mcg/mL (5-10) H 11/10/17 14:04 Enterobacteriac sp PCR DETECTED (Not Detect) A 11/09/17 12:20 E. coli (PCR) DETECTED (Not Detect) A 11/09/17 12:20 Microbiology, Last 48 Hours 11/11/17 09:40 Surgical Biopsy Culture - Final Right Foot Enterobacter cloacae complex 11/13/17 09:33 Blood Culture - Preliminary Peripheral Venipuncture Culture is incubating and being continuously monitored for growth. Final report to follow. 11/13/17 09:33 Blood Culture - Preliminary Peripheral Venipuncture Culture is incubating and being continuously monitored for growth. Final report to follow. 11/11/17 09:40 Wound Culture - Preliminary Right Foot Gram Negative Jorge Consult Discharge Plan - Plan Referrals: Curt Sainz MD [Primary Care Provider] -
[2017-11-13] MEDS: Gabapentin 100 MG CAPSULE PO SCH (20:24)
[2017-11-14] MEDS: hydrALAZINE 25 MG TABLET PO SCH ×4 (00:12→23:23)
[2017-11-14 06:04] LABS: INR 1.9; Prothrombin Time 21.9 Seconds (9.4-12.1)
[2017-11-14 06:12] LABS: BUN/Creatinine Ratio 11 (6-26); Blood Urea Nitrogen 14 mg/dL (6-20); Calcium 8.6 mg/dL (8.6-10.3); Carbon Dioxide 25 mEq/L (23-29); Chloride 108 mEq/L (98-107); Glucose 79 mg/dL (70-105); Osmolality,Calculated 291 (280-300); Potassium 3.9 mEq/L (3.5-5.1); Sodium 141 mEq/L (136-145); eGFR For African Americans > 60 (> 60); eGFR For Non-African Americans 58 (> 60)
[2017-11-14] MEDS: Insulin LISPRO 300 UNITS/3 ML VIAL SQ SCH ×4 (07:43→20:50)
[2017-11-14] MEDS: Budesonide/Formoterol 80/4.5 MDI IH SCH ×2 (07:48→20:06)
[2017-11-14] MEDS: Levofloxacin 750 MG/150 ML 750 MG/150 ML BAG IVPB SCH (08:20)
[2017-11-14] MEDS: Furosemide 40 MG TABLET PO SCH (08:20)
[2017-11-14] MEDS: Insulin DETEMIR 100 UNIT/ML X5UNITS SQ SCH ×2 (08:21→20:50)
--- NOTE | 2017-11-14 12:55 | Infectious Disease Progress No ---
Date of Encounter: 11/14/17 Time of Encounter: 12:55 - Assessment and Plan (1) Severe sepsis Current Visit: Yes Status: Acute The patient had three SIRS criteria with KELSY on admission. Likely secondary to bacteremia and right foot infection. Improved. WBC improved. Tachycardia and fevers resolved. WBC normalized. Blood cultures drawn 11/09/17 were positive 1/2 sets for E. coli. Repeat blood cultures drawn 11/13/17 x 2 sets are pending. (2) Bacteremia due to Escherichia coli Current Visit: Yes Status: Acute Causative organism: E. coli Source unclear, but possibly right foot infection. Blood cultures drawn 11/08/17 are positive 1/2 sets. Repeat blood cultures 11/13/17 are pending x 2 sets. The patient has multiple allergies documented, but he is unsure of the nature of the allergies, but denies history of anaphylaxis. Discontinue Zosyn. Start Levaquin 750mg IV daily. The patient has a documented allergy to levaquin , but states he thinks he had a rash. Monitor closely for adverse/allergic reactions. Duration of treatment depends on the clinical picture, but likely 14 days from the first set of negative blood cultures. Given the improvement in the patient' s clinical status and lack of OM noted on imaging or intra-op, can likely switch to PO Levaquin when ready for discharge to complete course of treatment. Monitor renal function and dose-adjust antibiotics. (3) Diabetic foot ulcer Current Visit: Yes Status: Acute Location: Right plantar/lateral aspect. Causative organism: Enterobacter cloacae. Likely secondary to Charcot arthropathy. No osteomyelitis noted on imaging. Podiatry consulted and following. Status post I & D of the right foot with debridement of the bone 11/11/[address] Leone. Operative note reviewed. Serous fluid noted in the bursa sac. No osteomyelitis noted intra-op. Cultures as above. Pre-op ESR 63, CRP 9. Wound care and activity restrictions per the podiatry team. Continue levaquin as above. Duration of treatment depends on the clinical picture, but likely a total of 14 days from the first set of negative blood cultures. Given the lack of OM noted intra-op and on imaging, can likely switch to PO Levaquin to complete course of treatment. Monitor renal function and dose-adjust antibiotics. Qualifiers: Diabetic foot ulcer location: other Diabetes mellitus type: type 2 Laterality: right Non-pressure ulcer stage: unspecified non-pressure ulcer stage Qualified Code(s): E11.621 - Type 2 diabetes mellitus with foot ulcer; L97.519 - Non-pressure chronic ulcer of other part of right foot with unspecified severity (4) Oihls-no-qtpmamf kidney injury Current Visit: Yes Status: Acute Likely secondary to sepsis + vanc toxicity. Continue trend. Dose-adjust medications. Avoid nephrotoxins. Vancomycin discontinued. Qualifiers: Acute renal failure type: unspecified Chronic kidney disease stage: stage 4 (severe) Qualified Code(s): N17.9 - Acute kidney failure, unspecified; N18.4 - Chronic kidney disease, stage 4 (severe) (5) A-fib Current Visit: Yes Status: Chronic Rate controlled. Management per the primary team. Qualifiers: Atrial fibrillation type: chronic Qualified Code(s): I48.2 - Chronic atrial fibrillation (6) Allergy to multiple antibiotics Current Visit: Yes Status: Acute Patient reports multiple allergies, but no anaphylaxis. Continue Levaquin and see how the patient does. (7) Morbid obesity with BMI of 50.0-59.9, adult Current Visit: Yes Status: Chronic - Subjective Interval history: Patient seen and examined. No acute events noted overnight. Patient states that overall he feels okay. Denies fevers, chills, or rigors. Denies chest pain, shortness of breath, or cough. Denies nausea, vomiting, or diarrhea. Denies abdominal pain, urinary complaints, or appetite changes. Denies pain at the surgical site. Denies oral thrush or skin lesions. Infect Dis PN-Objective Data - Labs CBC & Chem 7: 11/13/17 09:33 11/14/17 05:36 Labs: Laboratory Results - last 24 hr 11/13/17 11/13/17 11/14/17 16:04 20:00 05:36 PT 21.9 H INR 1.9 Sodium Potassium Chloride Carbon Dioxide BUN Creatinine Est GFR ( Amer) Est GFR (Non-Af Amer) BUN/Creatinine Ratio Glucose POC Glucose 164 H 160 H Calculated Osmolality Calcium 11/14/17 11/14/17 11/14/17 05:36 07:20 11:59 PT INR Sodium 141 Potassium 3.9 Chloride 108 H Carbon Dioxide 25 BUN 14 Creatinine 1.31 H Est GFR ( Amer) > 60 Est GFR (Non-Af Amer) 58 L BUN/Creatinine Ratio 11 Glucose 79 POC Glucose 81 149 H Calculated Osmolality 291 Calcium 8.6 Cultures: Cultures 11/11/17 09:40 Anaerobic Culture - Preliminary Right Foot At this time, no anaerobic growth is present. The culture will be finalized after 5 days of incubation. 11/11/17 09:40 Surgical Biopsy Culture - Final Right Foot Enterobacter cloacae complex 11/13/17 09:33 Blood Culture - Preliminary Peripheral Venipuncture Culture is incubating and being continuously monitored for growth. Final report to follow. 11/13/17 09:33 Blood Culture - Preliminary Peripheral Venipuncture Culture is incubating and being continuously monitored for growth. Final report to follow. 11/11/17 09:40 Wound Culture - Preliminary Right Foot Gram Negative Jorge 11/09/17 15:45 Wound Culture - Final Right Foot Enterobacter cloacae complex Serology 11/10/17 Range/Units 19:15 Urine Color Yellow (Yellow) Urine Clarity Clear (Clear) Urine pH 6.0 (5.0-8.0) pH Units Ur Specific [place] 1.014 (1.010-1.025) Urine Protein 30 H (Neg-Trace) mg/dL Urine Glucose (UA) Normal (Normal) mg/dL Urine Ketones Negative (Negative) mg/dL Urine Blood Negative (Negative) Urine Nitrite Negative (Negative) Urine Bilirubin Negative (Negative) Urine Urobilinogen Normal (Normal) mg/dL Ur Leukocyte Esterase Negative (Negative) Urine Microscopic RBC 0-3 (0-3) per hpf Urine Microscopic WBC 0-3 (0-3) per hpf Ur Squamous Epith Cells Moderate H (None-Few) per lpf Urine Bacteria None Seen (None-Few) per hpf Hyaline Casts None Seen (None-Few) per lpf Ur Culture Indicated? NO (NO) Exam - Constitutional Vitals: Temp Pulse Resp BP Pulse Ox 97.9 F 80 14 116/73 95 11/14/17 09:50 11/14/17 09:50 11/14/17 09:50 11/14/17 09:50 11/14/17 09:50 General appearance: cooperative, morbidly obese, no acute distress - Head Head exam: Present: atraumatic, normal inspection, normocephalic - Eye Eye exam: Present: EOMI, normal appearance, PERRL Pupils: Present: normal accommodation - ENT ENT exam: Present: mucous membranes moist - Neck Neck exam: Present: normal inspection - Respiratory Respiratory exam: Present: CTAB. Absent: rales, respiratory distress, rhonchi, wheezes - Cardiovascular Cardiovascular exam: Present: RRR, +S1, +S2 - GI/Abdominal GI/Abdominal exam: Present: distended (obese), normal bowel sounds, soft. Absent: tenderness - Extremities Exam Extremities exam: Present: pedal edema (1+ BLE). Absent: joint swelling, normal inspection (Venous stasis dermatitis noted to the ), tenderness Additional comments: Right foot dressing C/D/I. - Neurological Exam Neurological exam: Present: alert, oriented X3, no focal deficits - Psychiatric Psychiatric exam: Present: normal affect, normal mood - Skin Skin exam: Present: dry, intact, normal color, warm Consult Discharge Plan - Plan Referrals: Curt Sainz MD [Primary Care Provider] - - Attending Attestation I examined this patient and my medical decision-making was reviewed with the Resident Physician. I agree with the documented findings, disposition and treatment plan as described except to the extent set forth below.
[2017-11-14] MEDS ORDERED: *HR* Warfarin 4 MG TABLET PO ONE (18:00)
[2017-11-14] MEDS ORDERED: DiphenhydraMINE CREAM 28.4 GM TUBE TP PRN (19:14)
[2017-11-14] MEDS: Loratadine 10 MG TABLET PO SCH (20:49)
[2017-11-14] MEDS: Gabapentin 100 MG CAPSULE PO SCH (20:50)
--- NOTE | 2017-11-14 21:43 | Internal Med Progress Note ---
Date of Encounter: 11/15/17 Time of Encounter: 21:43 - Assessment and plan (1) Type 2 diabetes mellitus Current Visit: Yes Status: Acute Qualifiers: Diabetes mellitus chcf insulin use: without chcf use Diabetes mellitus complication status: with skin complications Diabetes mellitus complication detail: with foot ulcer Qualified Code(s): E11.621 - Type 2 diabetes mellitus with foot ulcer; L97.509 - Non-pressure chronic ulcer of other part of unspecified foot with unspecified severity (2) HTN (hypertension) Current Visit: Yes Status: Chronic Qualifiers: Hypertension type: essential hypertension Qualified Code(s): I10 - Essential (primary) hypertension (3) AF (atrial fibrillation) Current Visit: Yes Status: Acute Qualifiers: Atrial fibrillation type: chronic Qualified Code(s): I48.2 - Chronic atrial fibrillation (4) Asthma Current Visit: Yes Status: Chronic Qualifiers: Asthma severity: mild Asthma persistence: intermittent Asthma complication type: unspecified Qualified Code(s): J45.20 - Mild intermittent asthma, uncomplicated - Time Spent With Patient Total time spent is greater than 50% in coordination of care (as documented) at patient's floor/unit and/or counseling patient: 25 - 35 minutes - Subjective Interval history: .. The patient feels pretty good. He complains of redness and itching above his wrists; he had hospital bands in those areas. The bands are taken off. We tried by mouth Benadryl with limited results. His right foot has surgical dressing. The pain is under control. Denies chest pain, difficulty breathing, coughing and wheezing. Denies abdominal pain, nausea and vomiting. He has normal urination. OBJECTIVE: .. Skin: Free of rash and discoloration. There is a surgical dressing applied to the right foot area. There is some pinkish/reddish discoloration of skin located above his wrists. ENMT: Oral/pharyngeal mucosa is normal in appearance. Eyes: Sclera is white. There is no discharge from eyes. Respiratory: Normal breath sounds; no crackles or wheezes. CV: Heart is regular; no gallop or murmur. GI: Abdomen is soft and not tender. There is no palpable mass or visceromegaly. Neuro: There is no focal deficits. ASSESSMENT AND PLAN: .. Diabetic foot ulcer; Charcot. The patient underwent incision and drainage of right foot with debridement of bone in the right foot. It happened on November 11, 2017. His glucose control is pretty much okay. We will continue Levemir and when necessary Humalog. He is on diabetic diet. Hypertension. Under control. Will continue Coreg with scheduled and when necessary hydralazine. Atrial fibrillation. Rate controlled. Will continue Coreg. We will continue warfarin (dosed by our pharmacy). Asthma. Under control. Will continue Symbicort. Disposition: Awaiting ECF. - Constitutional Vitals: Temp Pulse Resp BP Pulse Ox 99.0 F 85 18 129/62 94 11/14/17 19:20 11/14/17 19:20 11/14/17 20:06 11/14/17 19:20 11/14/17 20:06 General appearance: Present: A&O X 3, morbidly obese, answers questions appropriately Internal Medicine: Result - Labs CBC & Chem 7: 11/13/17 09:33 11/14/17 05:36 Labs: BMP 11/14/17 05:36 Sodium 141 Potassium 3.9 Chloride 108 H Carbon Dioxide 25 BUN 14 Creatinine 1.31 H Glucose 79 Calcium 8.6 - ABG Interpretation ABG results: PT/INR, D-dimer PT 21.9 Seconds (9.4-12.1) H 11/14/17 05:36 Consult Discharge Plan - Plan Referrals: Curt Sainz MD [Primary Care Provider] -
[2017-11-15 02:06] LABS: Prothrombin Time 22.4 Seconds (9.4-12.1)
[2017-11-15] MEDS: Insulin LISPRO 300 UNITS/3 ML VIAL SQ SCH ×4 (09:36→21:47)
[2017-11-15] MEDS: Furosemide 40 MG TABLET PO SCH (09:36)
[2017-11-15] MEDS: Levofloxacin 750 MG/150 ML 750 MG/150 ML BAG IVPB SCH (09:37)
[2017-11-15] MEDS: hydrALAZINE 25 MG TABLET PO SCH ×2 (09:37→18:01)
[2017-11-15] MEDS: Loratadine 10 MG TABLET PO SCH (09:37)
[2017-11-15] MEDS: Budesonide/Formoterol 80/4.5 MDI IH SCH ×2 (10:23→20:10)
[2017-11-15] MEDS: Insulin DETEMIR 100 UNIT/ML X5UNITS SQ SCH ×2 (11:01→21:44)
[2017-11-15] MEDS ORDERED: *HR* Warfarin 4 MG TABLET PO ONE (18:00)
--- NOTE | 2017-11-15 20:36 | Internal Med Progress Note ---
Date of Encounter: 11/15/17 Time of Encounter: 20:36 - Assessment and plan (1) Type 2 diabetes mellitus Current Visit: Yes Status: Acute Qualifiers: Diabetes mellitus mcfp insulin use: without mcfp use Diabetes mellitus complication status: with skin complications Diabetes mellitus complication detail: with foot ulcer Qualified Code(s): E11.621 - Type 2 diabetes mellitus with foot ulcer; L97.509 - Non-pressure chronic ulcer of other part of unspecified foot with unspecified severity (2) KELSY (acute kidney injury) Current Visit: Yes Status: Acute (3) HTN (hypertension) Current Visit: Yes Status: Chronic Qualifiers: Hypertension type: essential hypertension Qualified Code(s): I10 - Essential (primary) hypertension (4) AF (atrial fibrillation) Current Visit: Yes Status: Acute Qualifiers: Atrial fibrillation type: chronic Qualified Code(s): I48.2 - Chronic atrial fibrillation - Time Spent With Patient Total time spent is greater than 50% in coordination of care (as documented) at patient's floor/unit and/or counseling patient: 25 - 35 minutes - Subjective Interval history: .. The patient feels good. Redness and itching above his wrists have less intensity. His right foot has surgical dressing. The pain is under control. Denies chest pain, difficulty breathing, coughing and wheezing. Denies abdominal pain, nausea and vomiting. He has normal urination. OBJECTIVE: .. Skin: Free of rash and discoloration. There is a surgical dressing applied to the right foot area. There is some pinkish/reddish discoloration of skin located above his wrists. ENMT: Oral/pharyngeal mucosa is normal in appearance. Eyes: Sclera is white. There is no discharge from eyes. Respiratory: Normal breath sounds; no crackles or wheezes. CV: Heart is regular; no gallop or murmur. GI: Abdomen is soft and not tender. There is no palpable mass or visceromegaly. Neuro: There is no focal deficits. ASSESSMENT AND PLAN: .. Diabetic foot ulcer; Charcot. The patient underwent incision and drainage of right foot with debridement of bone in the right foot. It happened on November 11, 2017. His glucose control is pretty much okay. We will continue Levemir and when necessary Humalog. He is on diabetic diet. He is on Levaquin. Hypertension. Under control. Will continue Coreg with scheduled and when necessary hydralazine. Atrial fibrillation. Rate controlled. Will continue Coreg. We will continue warfarin (dosed by our pharmacy). His pro time INR from today is 2.0. Acute kidney injury. Resolving. His creatinine is 1.31. It was 1.56 yesterday. It was 1.13 in March 2017. No need for IV fluids at this time. Asthma. Under control. Will continue Symbicort. He has had some allergic reaction to hospital bands. Better. We will continue oral Claritin and topical Benadryl. Disposition: Awaiting ECF - Constitutional Vitals: Temp Pulse Resp BP Pulse Ox 98.4 F 86 18 118/71 96 11/15/17 19:37 11/15/17 19:37 11/15/17 19:37 11/15/17 19:37 11/15/17 19:37 General appearance: Present: A&O X 3, morbidly obese, answers questions appropriately Internal Medicine: Result - Labs CBC & Chem 7: 11/13/17 09:33 11/14/17 05:36 - ABG Interpretation ABG results: PT/INR, D-dimer PT 22.4 Seconds (9.4-12.1) H 11/15/17 01:21 Consult Discharge Plan - Plan Referrals: Curt Sainz MD [Primary Care Provider] -
[2017-11-15] MEDS: Gabapentin 100 MG CAPSULE PO SCH (21:48)
[2017-11-16] MEDS: hydrALAZINE 25 MG TABLET PO SCH ×3 (00:21→17:15)
[2017-11-16] MEDS: Insulin LISPRO 300 UNITS/3 ML VIAL SQ SCH ×4 (07:59→22:06)
[2017-11-16] MEDS: Furosemide 40 MG TABLET PO SCH (08:08)
[2017-11-16] MEDS: Loratadine 10 MG TABLET PO SCH (08:08)
[2017-11-16] MEDS: Levofloxacin 750 MG/150 ML 750 MG/150 ML BAG IVPB SCH (08:09)
[2017-11-16] MEDS: Insulin DETEMIR 100 UNIT/ML X5UNITS SQ SCH ×2 (08:09→22:05)
[2017-11-16] MEDS: Budesonide/Formoterol 80/4.5 MDI IH SCH ×2 (11:03→22:31)
[2017-11-16 11:22] LABS: INR 1.9; Prothrombin Time 21.8 Seconds (9.4-12.1)
--- NOTE | 2017-11-16 12:46 | Infectious Disease Progress No ---
Date of Encounter: 11/16/17 Time of Encounter: 12:44 - Assessment and Plan (1) Severe sepsis Current Visit: Yes Status: Acute The patient had three SIRS criteria with KELSY on admission. Likely secondary to bacteremia and right foot infection. Improved. Tachycardia and fevers resolved. WBC normalized. Blood cultures drawn 11/09/17 were positive 1/2 sets for E. coli. Repeat blood cultures drawn 11/13/17 x 2 sets are NGTD. (2) Bacteremia due to Escherichia coli Current Visit: Yes Status: Acute Causative organism: E. coli Source unclear, but possibly right foot infection. Blood cultures drawn 11/08/17 are positive 1/2 sets. Repeat blood cultures 11/13/17 are NGTD x 2 sets. The patient has multiple allergies documented, but he is unsure of the nature of the allergies, but denies history of anaphylaxis. Continue Levaquin 750mg IV daily. The patient has a documented allergy to levaquin, but states he thinks he had a rash. Monitor closely for adverse/ allergic reactions. He seems to be tolerating it without a problem. Duration of treatment depends on the clinical picture, but likely 14 days from the first set of negative blood cultures. Given the improvement in the patient' s clinical status and lack of OM noted on imaging or intra-op, can switch to PO Levaquin when ready for discharge to complete course of treatment. Monitor renal function and dose-adjust antibiotics. (3) Diabetic foot ulcer Current Visit: Yes Status: Acute Location: Right plantar/lateral aspect. Causative organism: Enterobacter cloacae. Likely secondary to Charcot arthropathy. No osteomyelitis noted on imaging. Podiatry consulted and following. Status post I & D of the right foot with debridement of the bone 11/11/[address] Leone. Operative note reviewed. Serous fluid noted in the bursa sac. No osteomyelitis noted intra-op. Cultures as above. Pre-op ESR 63, CRP 9. Wound care and activity restrictions per the podiatry team. Continue levaquin as above. Duration of treatment depends on the clinical picture, but likely a total of 14 days from the first set of negative blood cultures. Given the lack of OM noted intra-op and on imaging, can likely switch to PO Levaquin to complete course of treatment. Monitor renal function and dose-adjust antibiotics. Qualifiers: Diabetic foot ulcer location: other Diabetes mellitus type: type 2 Laterality: right Non-pressure ulcer stage: unspecified non-pressure ulcer stage Qualified Code(s): E11.621 - Type 2 diabetes mellitus with foot ulcer; L97.519 - Non-pressure chronic ulcer of other part of right foot with unspecified severity (4) Olfjz-eb-dptsnps kidney injury Current Visit: Yes Status: Acute Likely secondary to sepsis + vanc toxicity. Continue trend. Dose-adjust medications. Avoid nephrotoxins. Vancomycin discontinued. Qualifiers: Acute renal failure type: unspecified Chronic kidney disease stage: stage 4 (severe) Qualified Code(s): N17.9 - Acute kidney failure, unspecified; N18.4 - Chronic kidney disease, stage 4 (severe) (5) A-fib Current Visit: Yes Status: Chronic Rate controlled. Management per the primary team. Qualifiers: Atrial fibrillation type: chronic Qualified Code(s): I48.2 - Chronic atrial fibrillation (6) Allergy to multiple antibiotics Current Visit: Yes Status: Acute Patient reports multiple allergies, but no anaphylaxis. Continue Levaquin and see how the patient does. (7) Morbid obesity with BMI of 50.0-59.9, adult Current Visit: Yes Status: Chronic - Subjective Interval history: Patient seen and examined. No acute events noted overnight. Patient states that overall he feels okay. Denies fevers, chills, or rigors. Denies chest pain, shortness of breath, or cough. Denies nausea, vomiting, or diarrhea. Denies abdominal pain, urinary complaints, or appetite changes. Denies pain at the surgical site. Denies oral thrush or skin lesions. Infect Dis PN-Objective Data - Labs CBC & Chem 7: 11/13/17 09:33 11/14/17 05:36 Labs: Laboratory Results - last 24 hr 11/15/17 11/15/17 11/16/17 16:51 21:15 11:02 PT 21.8 H INR 1.9 POC Glucose 150 H 174 H Cultures: Cultures 11/11/17 09:40 Anaerobic Culture - Final Right Foot No anaerobes were recovered. 11/11/17 09:40 Wound Culture - Final Right Foot Enterobacter cloacae complex 11/11/17 09:40 Surgical Biopsy Culture - Final Right Foot Enterobacter cloacae complex 11/13/17 09:33 Blood Culture - Preliminary Peripheral Venipuncture Culture is incubating and being continuously monitored for growth. Final report to follow. 11/13/17 09:33 Blood Culture - Preliminary Peripheral Venipuncture Culture is incubating and being continuously monitored for growth. Final report to follow. 11/09/17 15:45 Wound Culture - Final Right Foot Enterobacter cloacae complex Serology 11/10/17 Range/Units 19:15 Urine Color Yellow (Yellow) Urine Clarity Clear (Clear) Urine pH 6.0 (5.0-8.0) pH Units Ur Specific [place] 1.014 (1.010-1.025) Urine Protein 30 H (Neg-Trace) mg/dL Urine Glucose (UA) Normal (Normal) mg/dL Urine Ketones Negative (Negative) mg/dL Urine Blood Negative (Negative) Urine Nitrite Negative (Negative) Urine Bilirubin Negative (Negative) Urine Urobilinogen Normal (Normal) mg/dL Ur Leukocyte Esterase Negative (Negative) Urine Microscopic RBC 0-3 (0-3) per hpf Urine Microscopic WBC 0-3 (0-3) per hpf Ur Squamous Epith Cells Moderate H (None-Few) per lpf Urine Bacteria None Seen (None-Few) per hpf Hyaline Casts None Seen (None-Few) per lpf Ur Culture Indicated? NO (NO) Exam - Constitutional Vitals: Temp Pulse Resp BP Pulse Ox 97.7 F 93 20 143/77 95 11/16/17 11:41 11/16/17 11:41 11/16/17 11:41 11/16/17 11:41 11/16/17 11:41 General appearance: cooperative, morbidly obese, no acute distress - Head Head exam: Present: atraumatic, normal inspection, normocephalic - Eye Eye exam: Present: EOMI, normal appearance, PERRL Pupils: Present: normal accommodation - ENT ENT exam: Present: mucous membranes moist - Neck Neck exam: Present: normal inspection - Respiratory Respiratory exam: Present: CTAB. Absent: rales, respiratory distress, rhonchi, wheezes - Cardiovascular Cardiovascular exam: Present: RRR, +S1, +S2 - GI/Abdominal GI/Abdominal exam: Present: distended (obese), normal bowel sounds, soft. Absent: tenderness - Extremities Exam Extremities exam: Present: pedal edema (1+ BLE). Absent: joint swelling, normal inspection (Venous stasis dermatitis noted to the BLE.), tenderness Additional comments: Right foot dressing C/D/I. - Neurological Exam Neurological exam: Present: alert, oriented X3, no focal deficits - Psychiatric Psychiatric exam: Present: normal affect, normal mood - Skin Skin exam: Present: dry, intact, normal color, warm Consult Discharge Plan - Plan Referrals: Curt Sainz MD [Primary Care Provider] - - Attending Attestation I examined this patient and my medical decision-making was reviewed with the Resident Physician. I agree with the documented findings, disposition and treatment plan as described except to the extent set forth below.
--- NOTE | 2017-11-16 16:28 | Podiatry Progress Note ---
Date of Encounter: 11/16/17 Time of Encounter: 12:15 - Assessment and Plan (1) Diabetes Current Visit: Yes Status: Chronic Qualifiers: Diabetes mellitus type: type 2 Diabetes mellitus intermodal customer service insulin use: with intermodal customer service use Diabetes mellitus complication status: with circulatory complication Diabetes mellitus complication detail: with other circulatory complications Qualified Code(s): E11.59 - Type 2 diabetes mellitus with other circulatory complications; Z79.4 - alf (current) use of insulin (2) CKD (chronic kidney disease), stage III Current Visit: Yes Status: Chronic (3) Charcot's joint of foot Current Visit: Yes Status: Acute Cellulitis has resolved, no pus, no odor. Sutures intact to incision line, small open area to the center of incision line that is 0.4 cm in diameter and probes 3 cm in depth. Plan: Continue wound care as ordered. non-weight bearing right lower extremity. Antibiotic per ID. Follow up with Dr. Leone in wound care one week after discharge from hospital in the wound care center. Qualifiers: Laterality: right Qualified Code(s): M14.671 - Charcot's joint, right ankle and foot (4) Cellulitis Current Visit: Yes Status: Acute Qualifiers: Site of cellulitis: extremity Site of cellulitis of extremity: lower extremity Laterality: unspecified laterality Qualified Code(s): L03.119 - Cellulitis of unspecified part of limb Subjective Interval history: Patient is s/p incision and drainage right foot, debridement of bone right foot by Dr. Leone on 11/11/17. Patient is lying in bed with dressing intact, small amount of strikethrough drainage observed to dressing. Patient denies any fever , chills, cp, sob or flu like symptoms. Objective - Vital Signs Vital Signs: Vital Signs Temp Pulse Resp BP Pulse Ox 11/16/17 15:12 97.9 F 85 15 147/75 95 11/16/17 11:41 97.7 F 93 20 143/77 95 11/16/17 11:03 16 93 11/16/17 07:26 98.6 F 85 15 130/73 94 11/16/17 03:40 98.6 F 84 16 131/66 95 11/16/17 00:09 98.4 F 79 18 135/66 95 11/15/17 20:10 18 94 11/15/17 19:37 98.4 F 86 18 118/71 96 Intake and Output 11/16/17 11/16/17 11/16/17 07:59 15:59 23:59 Intake Total 0 / 0 240 / 240 Output Total 800 / 800 600 / 600 Balance -800 / -800 -360 / -360 Intake: Oral 0 / 0 240 / 240 Output: Urine 800 / 800 600 / 600 Other: Meal Breakfast Percent of Meal Consumed 100% Stool Size Large Stool Consistency loose Stool Color Brown # Voids 1 Blood Glucose* 108 151 169 - Exam Exam: General appearance: alert awake oriented X 3. Calm and pleasant, no acute distress.. Vascular:No evidence of cyanosis, pallor or rubor, Edema graded at 1+/4, Skin Tempature warm, No calf pain with manual compression. capillary refill time is immediate to digits. Postop Exam: S/P Sutures intact to incision line, small open area to the center of incision line that is 0.4 cm in diameter and probes 3 cm in depth. Small amount of serous drainage observed to dressing. No odor, no erythema, no streaking. Minimal edema. - Lab Result Diagrams: 11/13/17 09:33 11/14/17 05:36 Labs: Abnormal lab results RBC 2.95 M/mcL (4.19-5.50) L 11/13/17 09:33 Hgb 8.4 g/dL (12.9-16.9) L 11/13/17 09:33 Hct 27.6 % (37.5-50.1) L 11/13/17 09:33 MCHC 30.4 g/dL (31.6-35.5) L 11/13/17 09:33 RDW 14.6 % (11.5-14.5) H 11/13/17 09:33 ESR 63 mm/hr (0-10) H 11/09/17 12:20 PT 21.8 Seconds (9.4-12.1) H 11/16/17 11:02 Chloride 108 mEq/L (98-107) H 11/14/17 05:36 Creatinine 1.31 mg/dL (0.70-1.30) H 11/14/17 05:36 Est GFR (Non-Af Amer) 58 (> 60) L 11/14/17 05:36 POC Glucose 174 mg/dL (70-99) H 11/15/17 21:15 Hemoglobin A1c 7.9 % (-5.6) H 11/11/17 05:23 Urine Protein 30 mg/dL (Neg-Trace) H 11/10/17 19:15 Ur Squamous Epith Cells Moderate per lpf (None-Few) H 11/10/17 19:15 Vancomycin Trough 22 mcg/mL (5-10) H 11/10/17 14:04 Enterobacteriac sp PCR DETECTED (Not Detect) A 11/09/17 12:20 E. coli (PCR) DETECTED (Not Detect) A 11/09/17 12:20 Microbiology, Last 48 Hours 11/11/17 09:40 Anaerobic Culture - Final Right Foot No anaerobes were recovered. 11/11/17 09:40 Wound Culture - Final Right Foot Enterobacter cloacae complex Consult Discharge Plan - Plan Referrals: Curt Sainz MD [Primary Care Provider] -
[2017-11-16] MEDS ORDERED: *HR* Warfarin 10 MG TABLET PO ONE (18:00)
--- NOTE | 2017-11-16 18:04 | Internal Med Progress Note ---
Date of Encounter: 11/16/17 Time of Encounter: 18:04 - Assessment and plan (1) Type 2 diabetes mellitus Current Visit: Yes Status: Acute Qualifiers: Diabetes mellitus nursing home insulin use: without nursing home use Diabetes mellitus complication status: with skin complications Diabetes mellitus complication detail: with foot ulcer Qualified Code(s): E11.621 - Type 2 diabetes mellitus with foot ulcer; L97.509 - Non-pressure chronic ulcer of other part of unspecified foot with unspecified severity (2) KELSY (acute kidney injury) Current Visit: Yes Status: Acute (3) HTN (hypertension) Current Visit: Yes Status: Chronic Qualifiers: Hypertension type: essential hypertension Qualified Code(s): I10 - Essential (primary) hypertension (4) AF (atrial fibrillation) Current Visit: Yes Status: Acute Qualifiers: Atrial fibrillation type: chronic Qualified Code(s): I48.2 - Chronic atrial fibrillation (5) Atopic dermatitis Current Visit: Yes Status: Acute Qualifiers: Atopic dermatitis type: other Qualified Code(s): L20.89 - Other atopic dermatitis; L20.8 - Other atopic dermatitis - Time Spent With Patient Total time spent is greater than 50% in coordination of care (as documented) at patient's floor/unit and/or counseling patient: 25 - 35 minutes - Subjective Interval history: .. He continues to have itching about his wrists.It is associated with a little bit of redness and mild swelling. His right foot has surgical dressing. The pain is under control. Denies chest pain, difficulty breathing, coughing and wheezing. Denies abdominal pain, nausea and vomiting. He has normal urination. OBJECTIVE: .. Skin: Free of rash and discoloration. There is a surgical dressing applied to the right foot area. There is some pinkish/reddish discoloration of skin located above his wrists. ENMT: Oral/pharyngeal mucosa is normal in appearance. Eyes: Sclera is white. There is no discharge from eyes. Respiratory: Normal breath sounds; no crackles or wheezes. CV: Heart is regular; no gallop or murmur. GI: Abdomen is soft and not tender. There is no palpable mass or visceromegaly. Neuro: There is no focal deficits. ASSESSMENT AND PLAN: .. Diabetic foot ulcer; Charcot. The patient underwent incision and drainage of right foot with debridement of bone in the right foot. It happened on November 11, 2017. His glucose control is pretty much okay. We will continue Levemir and when necessary Humalog. He is on diabetic diet. He is on Levaquin. He is awaiting ECF. Hypertension. Under control. Will continue Coreg with scheduled and when necessary hydralazine. Atrial fibrillation. Rate controlled. Will continue Coreg. We will continue warfarin (dosed by our pharmacy). His pro time INR from today is 2.0. Acute kidney injury. Resolving. His creatinine is 1.31. It was 1.56 yesterday. It was 1.13 in March 2017. No need for IV fluids at this time. Asthma. Under control. Will continue Symbicort. Atopic dermatitis. It is an allergic reaction to hospital bands. We will continue with by mouth Claritin. Will substitute topical Benadryl with topical 1% hydrocortisone cream. Disposition: Awaiting ECF - Constitutional Vitals: Temp Pulse Resp BP Pulse Ox 97.9 F 85 15 147/75 95 11/16/17 15:12 11/16/17 15:12 11/16/17 15:12 11/16/17 15:12 11/16/17 15:12 General appearance: Present: A&O X 3, morbidly obese, answers questions appropriately Internal Medicine: Result - Labs CBC & Chem 7: 11/13/17 09:33 11/14/17 05:36 - ABG Interpretation ABG results: PT/INR, D-dimer PT 21.8 Seconds (9.4-12.1) H 11/16/17 11:02 Consult Discharge Plan - Plan Referrals: Curt Sainz MD [Primary Care Provider] -
[2017-11-16] MEDS: Gabapentin 100 MG CAPSULE PO SCH (22:05)
[2017-11-17] MEDS: hydrALAZINE 25 MG TABLET PO SCH ×3 (00:26→16:32)
[2017-11-17 02:17] LABS: Prothrombin Time 22.3 Seconds (9.4-12.1)
[2017-11-17] MEDS: Budesonide/Formoterol 80/4.5 MDI IH SCH (07:58)
[2017-11-17] MEDS: Insulin LISPRO 300 UNITS/3 ML VIAL SQ SCH ×3 (08:56→16:32)
[2017-11-17] MEDS: Loratadine 10 MG TABLET PO SCH (08:57)
[2017-11-17] MEDS: Furosemide 40 MG TABLET PO SCH (08:57)
[2017-11-17] MEDS: Levofloxacin 750 MG/150 ML 750 MG/150 ML BAG IVPB SCH (08:58)
[2017-11-17] MEDS: Insulin DETEMIR 100 UNIT/ML X5UNITS SQ SCH (09:01)
[2017-11-17] MEDS ORDERED: levoFLOXacin 750 MG TABLET PO SCH (09:30)
--- NOTE | 2017-11-17 11:11 | Infectious Disease Progress No ---
Date of Encounter: 11/17/17 Time of Encounter: 11:07 - Assessment and Plan (1) Severe sepsis Status: Acute The patient had three SIRS criteria with KELSY on admission. Likely secondary to bacteremia and right foot infection. Improved. Tachycardia and fevers resolved. WBC normalized. Blood cultures drawn 11/09/17 were positive 1/2 sets for E. coli. Repeat blood cultures drawn 11/13/17 x 2 sets are NGTD. (2) Bacteremia due to Escherichia coli Status: Acute Causative organism: E. coli Source unclear, but possibly right foot infection. Blood cultures drawn 11/08/17 are positive 1/2 sets. Repeat blood cultures 11/13/17 are NGTD x 2 sets. The patient has multiple allergies documented, but he is unsure of the nature of the allergies, but denies history of anaphylaxis. Continue Levaquin 750mg IV daily. The patient has a documented allergy to levaquin, but states he thinks he had a rash. Monitor closely for adverse/ allergic reactions. He seems to be tolerating it without a problem, but is concerned that he will have a reaction once it is switched to the PO form. Will stop the IV form and give it to him PO and observe. Duration of treatment depends on the clinical picture, but likely 14 days from the first set of negative blood cultures. Given the improvement in the patient' s clinical status and lack of OM noted on imaging or intra-op, can switch to PO Levaquin when ready for discharge to complete course of treatment. Treat through 11/26/17. Monitor renal function and dose-adjust antibiotics. (3) Diabetic foot ulcer Status: Acute Location: Right plantar/lateral aspect. Causative organism: Enterobacter cloacae. Likely secondary to Charcot arthropathy. No osteomyelitis noted on imaging. Podiatry consulted and following. Status post I & D of the right foot with debridement of the bone 11/11/[address] Leone. Operative note reviewed. Serous fluid noted in the bursa sac. No osteomyelitis noted intra-op. Cultures as above. Pre-op ESR 63, CRP 9. Wound care and activity restrictions per the podiatry team. Continue levaquin as above. Duration of treatment depends on the clinical picture, but likely a total of 14 days from the first set of negative blood cultures. Given the lack of OM noted intra-op and on imaging, can likely switch to PO Levaquin to complete course of treatment. Monitor renal function and dose-adjust antibiotics. Qualifiers: Diabetic foot ulcer location: other Diabetes mellitus type: type 2 Laterality: right Non-pressure ulcer stage: unspecified non-pressure ulcer stage Qualified Code(s): E11.621 - Type 2 diabetes mellitus with foot ulcer; L97.519 - Non-pressure chronic ulcer of other part of right foot with unspecified severity (4) [id number] kidney injury Status: Acute Likely secondary to sepsis + vanc toxicity. Continue trend. Improved. Dose-adjust medications. Avoid nephrotoxins. Vancomycin discontinued. Qualifiers: Acute renal failure type: unspecified Chronic kidney disease stage: stage 4 (severe) Qualified Code(s): N17.9 - Acute kidney failure, unspecified; N18.4 - Chronic kidney disease, stage 4 (severe) (5) A-fib Status: Chronic Rate controlled. Management per the primary team. Qualifiers: Atrial fibrillation type: chronic Qualified Code(s): I48.2 - Chronic atrial fibrillation (6) Allergy to multiple antibiotics Status: Acute Patient reports multiple allergies, but no anaphylaxis. Continue Levaquin and see how the patient does. (7) Morbid obesity with BMI of 50.0-59.9, adult Status: Chronic - Subjective Interval history: Patient seen and examined. No acute events noted overnight. Patient states that overall he feels okay. Denies fevers, chills, or rigors. Denies chest pain, shortness of breath, or cough. Denies nausea, vomiting, or diarrhea. Denies abdominal pain, urinary complaints, or appetite changes. Denies pain at the surgical site. Denies oral thrush or skin lesions. Pending ECF placement. Infect Dis PN-Objective Data - Labs CBC & Chem 7: 11/13/17 09:33 11/14/17 05:36 Labs: Laboratory Results - last 24 hr 11/16/17 11/16/17 11/16/17 07:31 11:02 11:32 PT 21.8 H INR 1.9 POC Glucose 108 H 151 H 11/16/17 11/16/17 11/17/17 16:21 20:14 01:36 PT 22.3 H INR 2.0 POC Glucose 169 H 182 H 11/17/17 07:43 PT INR POC Glucose 121 H Cultures: Cultures 11/11/17 09:40 Anaerobic Culture - Final Right Foot No anaerobes were recovered. 11/11/17 09:40 Wound Culture - Final Right Foot Enterobacter cloacae complex 11/11/17 09:40 Surgical Biopsy Culture - Final Right Foot Enterobacter cloacae complex 11/13/17 09:33 Blood Culture - Preliminary Peripheral Venipuncture Culture is incubating and being continuously monitored for growth. Final report to follow. 11/13/17 09:33 Blood Culture - Preliminary Peripheral Venipuncture Culture is incubating and being continuously monitored for growth. Final report to follow. 11/09/17 15:45 Wound Culture - Final Right Foot Enterobacter cloacae complex Serology 11/10/17 Range/Units 19:15 Urine Color Yellow (Yellow) Urine Clarity Clear (Clear) Urine pH 6.0 (5.0-8.0) pH Units Ur Specific [place] 1.014 (1.010-1.025) Urine Protein 30 H (Neg-Trace) mg/dL Urine Glucose (UA) Normal (Normal) mg/dL Urine Ketones Negative (Negative) mg/dL Urine Blood Negative (Negative) Urine Nitrite Negative (Negative) Urine Bilirubin Negative (Negative) Urine Urobilinogen Normal (Normal) mg/dL Ur Leukocyte Esterase Negative (Negative) Urine Microscopic RBC 0-3 (0-3) per hpf Urine Microscopic WBC 0-3 (0-3) per hpf Ur Squamous Epith Cells Moderate H (None-Few) per lpf Urine Bacteria None Seen (None-Few) per hpf Hyaline Casts None Seen (None-Few) per lpf Ur Culture Indicated? NO (NO) Exam - Constitutional Vitals: Temp Pulse Resp BP Pulse Ox 97.8 F 88 16 142/73 94 11/17/17 07:28 11/17/17 07:28 11/17/17 07:59 11/17/17 07:28 11/17/17 07:59 General appearance: cooperative, morbidly obese, no acute distress - Head Head exam: Present: atraumatic, normal inspection, normocephalic - Eye Eye exam: Present: EOMI, normal appearance, PERRL Pupils: Present: normal accommodation - ENT ENT exam: Present: mucous membranes moist - Neck Neck exam: Present: normal inspection - Respiratory Respiratory exam: Present: CTAB. Absent: rales, respiratory distress, rhonchi, wheezes - Cardiovascular Cardiovascular exam: Present: irregular rhythm, +S1, +S2. Absent: tachycardia - GI/Abdominal GI/Abdominal exam: Present: distended (obese), normal bowel sounds, soft. Absent: tenderness - Extremities Exam Extremities exam: Present: pedal edema (1+ BLE). Absent: joint swelling, tenderness Additional comments: Right foot dressing C/D/I. - Neurological Exam Neurological exam: Present: alert, oriented X3, no focal deficits - Psychiatric Psychiatric exam: Present: normal affect, normal mood - Skin Skin exam: Present: dry, intact, normal color, warm Consult Discharge Plan - Plan Additional Instructions: Follow-up with podiatry - in 1-2 weeks. Referrals: Henrry Leone DPM [Partnered Physician] - (Web request entered. Office will call [facility] with appointment.) Curt Sainz MD [Primary Care Provider] - Prescriptions: HYDROcodone/Acet 5/325 mg [[place] 5-325 mg] 1 tab PO Q6HR PRN 3 Days #12 tablet PRN Reason: Moderate Pain levoFLOXacin [Levaquin] 750 mg PO DAILY 14 Days #14 tablet Warfarin [Coumadin] 10 mg PO 1800 #30 tablet - Attending Attestation I examined this patient and my medical decision-making was reviewed with the Resident Physician. I agree with the documented findings, disposition and treatment plan as described except to the extent set forth below.
[2017-11-17 16:07] VITALS: BP 143/68
--- NOTE | 2017-11-17 17:25 | Discharge Summary ---
Orders not resulted at time of discharge: Pending orders 11/13/17 09:33 Culture,Blood [BC] Stat Culture,Blood,Additional [BC] Stat 11/18/17 04:00 INR/PT [Prothrombin Time INR] [COAG] AM 0400 11/19/17 04:00 INR/PT [Prothrombin Time INR] [COAG] AM 0400 11/20/17 04:00 INR/PT [Prothrombin Time INR] [COAG] AM 0400 Date of Encounter: 11/17/17 Time of Encounter: 17:20 - Discharge Diagnosis (1) Type 2 diabetes mellitus Priority: Primary Status: Acute Qualifiers: Diabetes mellitus shelter insulin use: without truck terminal manager use Diabetes mellitus complication status: with skin complications Diabetes mellitus complication detail: with foot ulcer Qualified Code(s): E11.621 - Type 2 diabetes mellitus with foot ulcer; L97.509 - Non-pressure chronic ulcer of other part of unspecified foot with unspecified severity (2) KELSY (acute kidney injury) Priority: Secondary Status: Acute (3) HTN (hypertension) Priority: Secondary Status: Chronic Qualifiers: Hypertension type: essential hypertension Qualified Code(s): I10 - Essential (primary) hypertension (4) AF (atrial fibrillation) Priority: Secondary Status: Chronic Qualifiers: Atrial fibrillation type: chronic Qualified Code(s): I48.2 - Chronic atrial fibrillation (5) Atopic dermatitis Priority: Secondary Status: Acute Qualifiers: Atopic dermatitis type: other Qualified Code(s): L20.89 - Other atopic dermatitis; L20.8 - Other atopic dermatitis Hospital course: Mr. Jones is a 51 year old male Discharge discussed with: patient, case management - Time Spent with Patient Total time spent providing and/or coordinating discharge services: Greater than 30 minutes (40 minutes) - Discharge Medications Prescriptions: HYDROcodone/Acet 5/325 mg [[place] 5-325 mg] 1 tab PO Q6HR PRN 3 Days #12 tablet PRN Reason: Moderate Pain levoFLOXacin [Levaquin] 750 mg PO DAILY 14 Days #14 tablet Warfarin [Coumadin] 10 mg PO 1800 #30 tablet Home Medications: Acetaminophen [Tylenol] 500 mg PO HS 12/02/16 [History] Carvedilol Phosphate [Coreg Cr] 80 mg PO DAILY 12/02/16 [History] Clobetasol Propionate [Temovate] 1 appl TP BID PRN 12/02/16 [History] Ergocalciferol (VITAMIN D2) [Vitamin D2] 50,000 unit PO QWEEK 12/02/16 [History] Fluticasone/Salmeterol [Advair 250-50 Diskus] 1 each IH BID PRN 12/02/16 [ History] Furosemide [Lasix] 40 mg PO DAILY 12/02/16 [History] Gabapentin [Neurontin] 100 mg PO HS 12/02/16 [History] Insulin Glargine,Hum.rec.anlog [Lantus Solostar] 46 units SQ BID 12/02/16 [ History] Metformin HCl [Glucophage] 1,000 mg PO BID 12/02/16 [History] Pentoxifylline 400 mg PO BID 12/02/16 [History] Potassium Chloride 20 meq PO DAILY 12/02/16 [History] Pramipexole [Mirapex] 0.25 mg PO BID 12/02/16 [History] Simvastatin [Zocor] 20 mg PO DAILY 12/02/16 [History] Lisinopril [Zestril] 10 mg PO DAILY 11/09/17 [History] Acetaminophen [Tylenol] 650 mg PO Q4HR PRN tablet 11/17/17 [Rx] HYDROcodone/Acet 5/325 mg [[place] 5-325 mg] 1 tab PO Q6HR PRN 3 Days #12 tablet 11/17/17 [Rx] Loratadine [Claritin] 10 mg PO DAILY tablet 11/17/17 [Rx] Warfarin [Coumadin] 10 mg PO 1800 #30 tablet 11/17/17 [Rx] levoFLOXacin [Levaquin] 750 mg PO DAILY 14 Days #14 tablet 11/17/17 [Rx] Allergies/Adverse Reactions: 3 Allergy/AdvReac Type Severity Reaction Status Date / Time peanut Allergy Anaphylaxis Verified 03/25/17 00:00 cephalexin [From Keflex] AdvReac Rash Verified 03/25/17 00:00 levofloxacin AdvReac Rash Verified 03/25/17 00:00 Sulfa (Sulfonamide AdvReac Rash Verified 03/25/17 00:00 Antibiotics) Date of admission: 11/09/17 14:53 Primary care physician: Curt Sainz MD Consults: 11/09/17 14:55 Consult to Wound Care [CONS] Routine Reason for Consult: diabetic ulcers Call Completed: No 11/10/17 11:38 Consult to Infectious Diseases [CONS] Routine Consulting Provider: Infectious [facility] Reason for Consult: Right chronic diabetic foot ulcer, with sepsis and bacteremia Call Completed: Yes Consult to Podiatry [CONS] Routine Consulting Provider: [facility] Reason for Consult: Right chronic diabetic foot ulcer, with sepsis and bacteremia Call Completed: Yes 11/11/17 12:15 Consult to Physical Therapy [CONS] Routine Comment: Evaluate, develop and implement POC Reason for Consult: s/p surgery, non-wb right foot Does patient have active BEDREST order?: No Is patient medically & hemodynamically stable?: Yes Discharging clinician: Grabiel Jiang Anticipated date of discharge: 11/17/17 - Constitutional Vitals: Temp Pulse Resp BP Pulse Ox 98.4 F 83 19 143/68 95 11/17/17 16:03 11/17/17 16:03 11/17/17 16:03 11/17/17 16:03 11/17/17 16:03 General appearance: Present: A&O X 3, morbidly obese, answers questions appropriately - Respiratory Respiratory exam: Present: CTAB. Absent: accessory muscle use, rales, rhonchi, wheezes - Cardiovascular Cardiovascular exam: Present: RRR, +S1, +S2. Absent: diastolic murmur, gallop, rubs, systolic murmur - GI/Abdominal GI/Abdominal exam: Present: normal bowel sounds, soft, no peritoneal signs. Absent: distended, tenderness - Patient Status Disposition: Transfer SNF Condition: Good Functional capacity at discharge: uses cane/walker Overall status at discharge: patient is progressing back to baseline - Discharge Instructions Follow Up With: Curt Sainz MD [Primary Care Provider] - Additional Instructions: Follow-up with podiatry - in 1-2 weeks. - Diet and Activity Activity: as per physical therapy Diet: diabetic diet - VTE Reasons for not Prescribing Prophylaxis: Not indicated-Anticoagulated or INR therapeutic
--- NOTE | 2017-11-17 17:48 | Physician Discharge Referral ---
ExtendedCare Referral Info Transfer To: ECF Provider in Charge: Kari Jiang Provider in Charge after Transfer: Other (an ECF physician) Institutional Level of Care: Skilled - Diagnosis (1) Type 2 diabetes mellitus Priority: Primary Status: Acute (2) KELSY (acute kidney injury) Priority: Secondary Status: Acute (3) HTN (hypertension) Priority: Secondary Status: Chronic (4) AF (atrial fibrillation) Priority: Secondary Status: Chronic (5) Atopic dermatitis Priority: Secondary Status: Acute - Transfer Medications Prescriptions: HYDROcodone/Acet 5/325 mg [[place] 5-325 mg] 1 tab PO Q6HR PRN 3 Days #12 tablet PRN Reason: Moderate Pain levoFLOXacin [Levaquin] 750 mg PO DAILY 14 Days #14 tablet Warfarin [Coumadin] 10 mg PO 1800 #30 tablet Home Medications: Acetaminophen [Tylenol] 500 mg PO HS 12/02/16 [History] Carvedilol Phosphate [Coreg Cr] 80 mg PO DAILY 12/02/16 [History] Clobetasol Propionate [Temovate] 1 appl TP BID PRN 12/02/16 [History] Ergocalciferol (VITAMIN D2) [Vitamin D2] 50,000 unit PO QWEEK 12/02/16 [History] Fluticasone/Salmeterol [Advair 250-50 Diskus] 1 each IH BID PRN 12/02/16 [ History] Furosemide [Lasix] 40 mg PO DAILY 12/02/16 [History] Gabapentin [Neurontin] 100 mg PO HS 12/02/16 [History] Insulin Glargine,Hum.rec.anlog [Lantus Solostar] 46 units SQ BID 12/02/16 [ History] Metformin HCl [Glucophage] 1,000 mg PO BID 12/02/16 [History] Pentoxifylline 400 mg PO BID 12/02/16 [History] Potassium Chloride 20 meq PO DAILY 12/02/16 [History] Pramipexole [Mirapex] 0.25 mg PO BID 12/02/16 [History] Simvastatin [Zocor] 20 mg PO DAILY 12/02/16 [History] Lisinopril [Zestril] 10 mg PO DAILY 11/09/17 [History] Acetaminophen [Tylenol] 650 mg PO Q4HR PRN tablet 11/17/17 [Rx] HYDROcodone/Acet 5/325 mg [[place] 5-325 mg] 1 tab PO Q6HR PRN 3 Days #12 tablet 11/17/17 [Rx] Loratadine [Claritin] 10 mg PO DAILY tablet 11/17/17 [Rx] Warfarin [Coumadin] 10 mg PO 1800 #30 tablet 11/17/17 [Rx] levoFLOXacin [Levaquin] 750 mg PO DAILY 14 Days #14 tablet 11/17/17 [Rx] Allergies/Adverse Reactions: 3 Allergy/AdvReac Type Severity Reaction Status Date / Time peanut Allergy Anaphylaxis Verified 03/25/17 00:00 cephalexin [From Keflex] AdvReac Rash Verified 03/25/17 00:00 levofloxacin AdvReac Rash Verified 03/25/17 00:00 Sulfa (Sulfonamide AdvReac Rash Verified 03/25/17 00:00 Antibiotics) - Respiratory Orders None Smoking Cessation: Smoking cessation has been advised. For more information, call the [place] Tobacco Quit Line at 7-465-PZWW-NOW. - Advance Directives Code Status: Full Code - Mobility Orders Ambulate, Other (with a walker) - Rehabiliation Orders Rehab Potential: Good - Diet Orders No Concentrated Sweets (1800 ADA diet..) CERTIFICATION: I certify that the transfer of the above named patient to an Extended Care Facility is necessary for the continuing treatment of the diagnosis listed. The above information is true and accurate reflection of patient's current condition. Confidential - Redisclosure prohibited without a patient's written consent.
[2017-11-17] MEDS ORDERED: *HR* Warfarin 10 MG TABLET PO ONE (18:00)
== END 2017-11-17 19:50 | DRG 854 ==
LOC: 3ANU 11:41 → EMEROO 11:41 → SUATTDRO 14:53 → 3ANU 14:59
PROVIDERS: ADMIT Internal Medicine; ATTEND Internal Medicine

== ENCOUNTER 2018-01-05 13:44 | Inpatient (IN) ==
--- NOTE | 2018-01-05 14:54 | Emergency Department Note ---
Disposition Clinical Impression: Cellulitis of plantar aspect of foot, Failure of outpatient treatment Charcot's joint of foot Qualifiers: Laterality: right Qualified Code(s): M14.671 - Charcot's joint, right ankle and foot Disposition: Admitted As Inpatient Condition: Fair Referrals: Jaime Paula MD [Primary Care Provider] - Forms: ED Satisfaction Letter Time of Disposition: 18:04 Extremity Problem HPI - General Chief complaint: ED Wound/Laceration Stated complaint: Right foot infection Time Seen by Provider: 01/05/18 14:00 Nursing Notes Reviewed: Yes Vital Signs Reviewed: Yes - History of Present Illness HPI Narrative: 52-year-old male with history of right Charcot foot status post operation in November by Dr. Parish presents from the wound care clinic for continued evaluation. Patient presented to the wound care clinic today for management of his chronic right plantar ulcer. Staff called Dr. Parish who advised that the patient, to the emergency department. Patient notes slight increase in swelling of his right foot and increase in redness on the swollen region of his right plantar foot. He does not have any erythema on his right ankle or leg. He has been on Cipro by mouth as an outpatient. Patient is wheelchair-bound at baseline. ROS: Positive: As above Negative: Fever, chills, nausea, vomiting, chest pains, palpitations, dyspnea, diaphoresis, ankle pain, trauma Pain Scale: 0 - Related Data Home Medications Medication Instructions Recorded Confirmed Acetaminophen [Tylenol] 500 mg PO HS 12/02/16 11/09/17 Carvedilol Phosphate [Coreg Cr] 80 mg PO DAILY 12/02/16 11/09/17 Fluticasone/Salmeterol [Advair 1 each IH BID PRN 12/02/16 11/09/17 250-50 Diskus] Furosemide [Lasix] 40 mg PO DAILY 12/02/16 11/09/17 Insulin Glargine,Hum.rec.anlog 46 units SQ BID 12/02/16 11/09/17 [Lantus Solostar] Metformin HCl [Glucophage] 1,000 mg PO BID 12/02/16 11/09/17 Pentoxifylline 400 mg PO BID 12/02/16 11/09/17 Potassium Chloride 20 meq PO DAILY 12/02/16 11/09/17 Pramipexole [Mirapex] 0.25 mg PO BID 12/02/16 11/09/17 Albuterol Sulfate [Ventolin Hfa] 2 puff IH Q4H PRN 01/05/18 01/05/18 Atorvastatin [Lipitor] 40 mg PO HS 01/05/18 01/05/18 Insulin LISPRO [HumaLOG] 10 units SQ TIDWM 01/05/18 01/05/18 Lansoprazole [Prevacid] 30 mg PO DAILY 01/05/18 01/05/18 Lisinopril [Zestril] 20 mg PO DAILY 01/05/18 01/05/18 Warfarin [Coumadin] 4 mg PO TU 01/05/18 01/05/18 Warfarin [Coumadin] 8 mg PO SUMOWETHFRSA 01/05/18 01/05/18 Previous Rx's Medication Instructions Recorded Loratadine [Claritin] 10 mg PO DAILY tablet 11/17/17 Allergies Allergy/AdvReac Type Severity Reaction Status Date / Time peanut Allergy Anaphylaxis Verified 03/25/17 00:00 cephalexin [From Keflex] AdvReac Rash Verified 03/25/17 00:00 levofloxacin AdvReac Rash Verified 03/25/17 00:00 Sulfa (Sulfonamide AdvReac Rash Verified 03/25/17 00:00 Antibiotics) All systems ED: reviewed and negative except as stated. Review of Systems: As Per HPI Past Medical History - Past Medical History Medical history: Reports: asthma, DVT, diabetes, hyperlipidemia, hypertension, pulmonary embolus, venous stasis, other Surgical history: Reports: herniorrhaphy Psychiatric history: Reports: no psych history - Social History Smoking Status: Never smoker Smokeless Tobacco Status: No Alcohol use: Reports: none Drug use: Reports: none Physical Exam Vital Signs Reviewed General: Patient is alert, oriented, and in no acute distress. Head: atraumatic, normocephalic Eye: normal appearance, no scleral icterus, no conjunctival injection ENT: mucous membranes moist, normal external ear exam Neck: normal inspection, trachea midline, full ROM Chest: normal inspection, symmetric chest rise Respiratory: Good respiratory effort. Bilateral breath sounds are clear without wheezing, crackles, or rhonchi. Cardiovascular: Regular rate and rhythm. No clicks, rubs, gallops, or murmors. Normal heart sounds. Right toe brisk capillary refill. Unable to palpate dorsalis pedis or posterior tibial pulse in the right foot secondary to patient' s body habitus. Bilateral lower extremity venous stasis changes. Musculoskeletal: Spontaneously moving all extremities. Skin: warm, dry. Right foot has notable grapefruit-sized swelling on the plantar aspect of his foot with a central ulceration; this is erythematous and warm, nontender to palpation, no purulence expressed from the ulcer. No erythema on the dorsum of his foot in no new erythema or change in erythema of his right lower extremity. Neuro: Alert and oriented x4. Sensation light touch intact. Psych: Patient's affect is appropriate for situation. Course Course Narrative: Clinically concerned for ostium myelitis versus cellulitis. Regardless, patient has failed outpatient antibiotics. X-ray shows possible chronic ostium myelitis. Serum hematology shows no leukocytosis. Serum chemistries unremarkable. Next I discussed the patient with on-call podiatry, Dr. Parish. He requested we admit the patient to hospitalist with consultation to him. Patient provided with IV vancomycin. Shortly after the infusion began, he had hives, pruritus. Vancomycin was stopped and he was provided 50 mg of IV Benadryl. This resolved without incident. I requested vancomycin be added to the patient's allergy list. I discussed the patient with the admitting hospitalist, Dr. Jacques, who agrees to accept the patient for continued rash and management for saline as skeletal outpatient therapy with podiatry consultation. Foot X-Ray 01/05/18 14:49 IMPRESSION: Large ulceration plantar aspect of the midfoot with diffuse soft tissue swelling and underlying chronic Charcot changes of the midfoot. Superimposed chronic osteomyelitis cannot be excluded. D/ / 01/05/2018 15:18:58 Ryan Gooden MD / jane Interpreting Provider: Ryan Gooden MD Vital Signs Temperature 98.3 F 01/05/18 13:49 Pulse Rate 84 01/05/18 13:49 Respiratory Rate 16 01/05/18 13:49 Blood Pressure 171/76 01/05/18 13:49 O2 Sat by Pulse Oximetry 94 01/05/18 13:49 Temperature 98.5 F 01/05/18 15:21 Pulse Rate 86 01/05/18 15:29 Respiratory Rate 16 01/05/18 15:29 Blood Pressure 128/67 01/05/18 15:29 O2 Sat by Pulse Oximetry 100 01/05/18 15:29 Oxygen Delivery Oxygen Delivery Room Air Extremity Problem, Nontraumati - Lab Data Result diagrams: 01/05/18 15:07 01/05/18 15:07 Lab Results 01/05/18 01/05/18 Range/Units 15:07 15:07 WBC 10.2 (4.3-11.1) K/mcL RBC 3.40 L (4.19-5.50) M/mcL Hgb 9.6 L (12.9-16.9) g/dL Hct 31.0 L (37.5-50.1) % MCV 91.2 (83.0-100.0) fL MCH 28.2 (28.0-33.3) pg MCHC 31.0 L (31.6-35.5) g/dL RDW 14.9 H (11.5-14.5) % Plt Count 234 (140-400) K/mcL MPV 11.6 (9.4-12.4) fL Immature Gran % 0.2 (0-4) % Seg Neutrophils % 65.4 % Lymphocytes % 16.7 % Monocytes % 9.5 % Eosinophils % 7.8 % Basophils % 0.4 % Neutrophils # 6.7 (1.6-8.9) K/mcL Lymphocytes # 1.7 (0.6-4.6) K/mcL Monocytes # 1.0 (0.0-1.3) K/mcL Eosinophils # 0.8 H (0.0-0.6) K/mcL Basophils # 0.0 (0.0-0.2) K/mcL Sodium 139 (136-145) mEq/L Potassium 4.5 (3.5-5.1) mEq/L Chloride 106 (98-107) mEq/L Carbon Dioxide 28 (23-29) mEq/L BUN 19 (6-20) mg/dL Creatinine 1.34 H (0.70-1.30) mg/dL Est GFR ( Amer) > 60 (> 60) Est GFR (Non-Af Amer) 56 L (> 60) BUN/Creatinine Ratio 14 (6-26) Glucose 168 H (70-105) mg/dL Calculated Osmolality 294 (280-300) Calcium 9.0 (8.6-10.3) mg/dL
--- NOTE | 2018-01-05 15:28 | Emergency Department Note ---
Disposition Clinical Impression: Charcot's joint of foot Qualifiers: Laterality: right Qualified Code(s): M14.671 - Charcot's joint, right ankle and foot Disposition: Still a Patient Forms: ED Satisfaction Letter General Adult HPI - General Chief complaint: ED Wound/Laceration Stated complaint: Right foot infection Time Seen by Provider: 01/05/18 14:00 Source: patient Limitations: no limitations - History of Present Illness Pain Scale: 0 - Related Data Home Medications Medication Instructions Recorded Confirmed Acetaminophen [Tylenol] 500 mg PO HS 12/02/16 11/09/17 Carvedilol Phosphate [Coreg Cr] 80 mg PO DAILY 12/02/16 11/09/17 Clobetasol Propionate [Temovate] 1 appl TP BID PRN 12/02/16 11/09/17 Ergocalciferol (VITAMIN D2) 50,000 unit PO QWEEK 12/02/16 11/09/17 [Vitamin D2] Fluticasone/Salmeterol [Advair 1 each IH BID PRN 12/02/16 11/09/17 250-50 Diskus] Furosemide [Lasix] 40 mg PO DAILY 12/02/16 11/09/17 Gabapentin [Neurontin] 100 mg PO HS 12/02/16 11/09/17 Insulin Glargine,Hum.rec.anlog 46 units SQ BID 12/02/16 11/09/17 [Lantus Solostar] Metformin HCl [Glucophage] 1,000 mg PO BID 12/02/16 11/09/17 Pentoxifylline 400 mg PO BID 12/02/16 11/09/17 Potassium Chloride 20 meq PO DAILY 12/02/16 11/09/17 Pramipexole [Mirapex] 0.25 mg PO BID 12/02/16 11/09/17 Simvastatin [Zocor] 20 mg PO DAILY 12/02/16 11/09/17 Lisinopril [Zestril] 10 mg PO DAILY 11/09/17 11/09/17 Previous Rx's Medication Instructions Recorded Acetaminophen [Tylenol] 650 mg PO Q4HR PRN tablet 11/17/17 HYDROcodone/Acet 5/325 mg [[place] 1 tab PO Q6HR PRN 3 Days #12 tablet 11/17/17 5-325 mg] Loratadine [Claritin] 10 mg PO DAILY tablet 11/17/17 Warfarin [Coumadin] 10 mg PO 1800 #30 tablet 11/17/17 levoFLOXacin [Levaquin] 750 mg PO DAILY 14 Days #14 tablet 11/17/17 Allergies Allergy/AdvReac Type Severity Reaction Status Date / Time peanut Allergy Anaphylaxis Verified 03/25/17 00:00 cephalexin [From Keflex] AdvReac Rash Verified 03/25/17 00:00 levofloxacin AdvReac Rash Verified 03/25/17 00:00 Sulfa (Sulfonamide AdvReac Rash Verified 03/25/17 00:00 Antibiotics) Past Medical History - Past Medical History Medical history: Reports: asthma, DVT, diabetes, hyperlipidemia, hypertension, pulmonary embolus, venous stasis, other Surgical history: Reports: herniorrhaphy Psychiatric history: Reports: no psych history - Social History Smoking Status: Never smoker Smokeless Tobacco Status: No Alcohol use: Reports: none Drug use: Reports: none Physical Exam - General Limitations: no limitations General appearance: alert, in no apparent distress Course Vital Signs Temperature 98.3 F 01/05/18 13:49 Pulse Rate 84 01/05/18 13:49 Respiratory Rate 16 01/05/18 13:49 Blood Pressure 171/76 01/05/18 13:49 O2 Sat by Pulse Oximetry 94 01/05/18 13:49 Temperature 98.5 F 01/05/18 15:21 Pulse Rate 88 01/05/18 15:21 Respiratory Rate 16 01/05/18 15:21 Blood Pressure 173/80 01/05/18 15:21 O2 Sat by Pulse Oximetry 96 01/05/18 15:21 Oxygen Delivery Oxygen Delivery Room Air Attestation Statement - Attestation Attestation: I examined this patient and my medical decision-making was reviewed with the Resident Physician. I agree with the documented findings, disposition and treatment plan as described except to the extent set forth below. 52-year-old male presents emergency room for evaluation for his right foot. Patient has a history of Charcot foot. He had surgery last month. He went to wound care clinic today and they sent him to the ER for concerns for possible infection of the right foot. Feel that the right lower extremity is more red but does feel that the right foot might be more red than normal. It is very warm to touch. He does follow with podiatry. We will consult with them. His x -ray of the right foot shows evidence of Charcot foot. Awaiting his lab work at this time. He is afebrile. We will consult with podiatry
[2018-01-05 15:31] LABS: Basophils % 0.4 %; Eosinophils # 0.8 K/mcL (0.0-0.6); Eosinophils % 7.8 %; Hemoglobin 9.6 g/dL (12.9-16.9); Immature Granulocytes % 0.2 % (0-4); Lymphocytes # 1.7 K/mcL (0.6-4.6); Lymphocytes % 16.7 %; Mean Corpuscular Hemoglobin 28.2 pg (28.0-33.3); Mean Corpuscular Volume 91.2 fL (83.0-100.0); Mean Platelet Volume 11.6 fL (9.4-12.4); Monocytes % 9.5 %; Neutrophils # 6.7 K/mcL (1.6-8.9); Platelet Count 234 K/mcL (140-400); Red Cell Distribution Width 14.9 % (11.5-14.5); Segmented Neutrophils % 65.4 %
[2018-01-05 15:50] LABS: BUN/Creatinine Ratio 14 (6-26); Blood Urea Nitrogen 19 mg/dL (6-20); Carbon Dioxide 28 mEq/L (23-29); Chloride 106 mEq/L (98-107); Glucose 168 mg/dL (70-105); Osmolality,Calculated 294 (280-300); Potassium 4.5 mEq/L (3.5-5.1); Sodium 139 mEq/L (136-145); eGFR For Non-African Americans 56 (> 60)
[2018-01-05] MEDS ORDERED: Naloxone 0.4 MG/ML INJ IVP PRN (18:29)
[2018-01-05] MEDS ORDERED: NON-FORMULARY MEDICATION 1 EACH EACH (Fluticasone/Salmeterol [Advair 250-50 Diskus] 1 EACH IH PRN (18:39)
[2018-01-05] MEDS ORDERED: *HR* Heparin 5,000 UNIT/ML VIAL IVP ONE (18:43)
[2018-01-05] MEDS ORDERED: *HR* Heparin 5,000 UNIT/ML VIAL IVP PRN ×2 (18:43)
[2018-01-05 19:21] LABS: Hematocrit 32.1 % (37.5-50.1); Hemoglobin 10.1 g/dL (12.9-16.9); Mean Corpuscular HGB Conc 31.5 g/dL (31.6-35.5); Mean Corpuscular Hemoglobin 28.1 pg (28.0-33.3); Mean Corpuscular Volume 89.2 fL (83.0-100.0); Mean Platelet Volume 11.3 fL (9.4-12.4); Platelet Count 241 K/mcL (140-400); Red Cell Distribution Width 15.1 % (11.5-14.5)
[2018-01-05 19:36] LABS: Heparin anti-factor XA UFH 0.03 IU/mL (0.30-0.70)
[2018-01-05 19:37] LABS: INR 1.7; Prothrombin Time 18.8 Seconds (9.4-12.1)
[2018-01-05] MEDS ORDERED: Budesonide/Formoterol 80/4.5 MDI IH PRN (19:50)
--- NOTE | 2018-01-05 19:52 | Internal Med History&Physical ---
Date of Encounter: 01/06/18 Time of Encounter: 17:30 Internal Medicine - H&P: HPI Chief complaint: foot wound History of present illness: Mr. Jones is a 52 year old male who has past medical history of left leg DVT and PE, asthma, diabetes, hyperlipidemia, hypertension, CHF, Afib, and morbid obesity was sent from the wound clinic to ER. Patient recently had Rt foot surgery for his Charcot foot disease by Dr. walsh in October. He was being followed with the wound care clinic and was being treated with antibiotics for past 7-8 days with oral ciprofloxacin. He was ask to come to ER as it is worsening with swelling and redness increasing. He had charcot foot for about 1- 2 years and ulcer for about 3-6 weeks. He denies any fevers chills nausea vomiting or diarrhea. He denies any pain in his Rt foot. However, his lifestyle has been significantly affected because of his foot disease and worsened by the ulcer. There is clear drainage from the ulcer on the bottom of his Rt foot. He has been told to avoid walking with weight on that foot and use wheelchiar. Off note, His Coumadin dosage is 8 mg for 6 days and one day 4 mg. He needs very high insulin for control of his diabetes. Past Med Surg Social Fam HX - Past Medical History Source: patient, old records reviewed Medical history: asthma, atrial fibrillation, CHF, DVT, diabetes, hyperlipidemia , hypertension, pulmonary embolus, renal disease, venous stasis, other Additional medical history: Charcot's foot, Venous insufficiency, morbid obesity Psychiatric history: no psych history - Past Surgical History Surgical History: herniorrhaphy Additional surgical history: Colonoscopy, I&D, - Social History Smoking Status: Never smoker Smokeless Tobacco Status: No Alcohol use: none Drug use: none Activity Level: Wheelchair bound - Family History Father Family Member Ethnicity: Non- Living Status: Still Living Hx Family Cardiac Disorders: Yes (Heart valve replacement, venous stasis) Hx Family Respiratory Disorders: No Hx Family Cancer: No Hx Family GI Disorders: No Hx Family Endocrine Disorder: No Hx Family Neuromuscular Disorders: No Hx Family Neurologic Disorders: No Hx Family HEENT Disorders: No Hx Family Autoimmune Disorders: No Mother Adopted: No Family Member Ethnicity: Non- Living Status: Hx Family Cardiac Disorders: Yes Hx Family Respiratory Disorders: No Hx Family Cancer: No Hx Family GI Disorders: No Hx Family Endocrine Disorder: Yes (DM) Hx Family Neuromuscular Disorders: No Hx Family Neurologic Disorders: Yes (Alzheimer's disease) Hx Family HEENT Disorders: No Hx Family Autoimmune Disorders: No Brother Family Member Ethnicity: Non- Living Status: Still Living Hx Family Cardiac Disorders: Yes (DVTs) Hx Family Respiratory Disorders: No Hx Family Cancer: No Hx Family GI Disorders: No Hx Family Endocrine Disorder: No Hx Family Neuromuscular Disorders: No Hx Family Neurologic Disorders: No Hx Family HEENT Disorders: No Hx Family Autoimmune Disorders: No Internal Medicine - H&P: Meds RX: Acetaminophen [Tylenol] 500 mg PO HS 12/02/16 [History] RX: Carvedilol Phosphate [Coreg Cr] 80 mg PO DAILY 12/02/16 [History] RX: Fluticasone/Salmeterol [Advair 250-50 Diskus] 1 each IH BID PRN 12/02/16 [ History] RX: Furosemide [Lasix] 40 mg PO BID 12/02/16 [History] RX: Insulin Glargine,Hum.rec.anlog [Lantus Solostar] 46 units SQ BID 12/02/16 [ History] RX: Metformin HCl [Glucophage] 1,000 mg PO BID 12/02/16 [History] RX: Pentoxifylline 400 mg PO BID 12/02/16 [History] RX: Potassium Chloride 20 meq PO DAILY 12/02/16 [History] RX: Pramipexole [Mirapex] 0.25 mg PO BID 12/02/16 [History] RX: Loratadine [Claritin] 10 mg PO DAILY tablet 11/17/17 [Rx] Albuterol Sulfate [Ventolin Hfa] 2 puff IH Q4H PRN 01/05/18 [History] Atorvastatin [Lipitor] 40 mg PO HS 01/05/18 [History] Insulin LISPRO [HumaLOG] 10 units SQ TIDWM 01/05/18 [History] Lansoprazole [Prevacid] 30 mg PO DAILY 01/05/18 [History] RX: Lisinopril [Zestril] 20 mg PO DAILY 01/05/18 [History] Warfarin [Coumadin] 4 mg PO TU 01/05/18 [History] Warfarin [Coumadin] 8 mg PO SUMOWETHFRSA 01/05/18 [History] 3 Allergy/AdvReac Type Severity Reaction Status Date / Time vancomycin Allergy Intermediate Itching Verified 01/05/18 19:34 peanut Allergy Anaphylaxis Verified 03/25/17 00:00 cephalexin [From Keflex] AdvReac Rash Verified 03/25/17 00:00 levofloxacin AdvReac Rash Verified 03/25/17 00:00 Sulfa (Sulfonamide AdvReac Rash Verified 03/25/17 00:00 Antibiotics) All Systems PM: A 10-system review of systems was performed and is negative for pertinent findings except as documented above in the HPI. - Constitutional Vitals: Temp Pulse Resp BP Pulse Ox 97.8 F 85 18 154/83 98 01/05/18 18:14 01/05/18 18:14 01/05/18 18:14 01/05/18 18:14 01/05/18 18:14 General appearance: Present: A&O X 3, obese Exam: Constitutional: In no distress, Sitting comfortably. Morbidly obese HEENT: PEARLA, No JVD, No lymphadenopathy CVS: S1, S2 normal, No MRG, RRR RS: Air entry equal, CTA ABdomen: Obese, Soft, Non-tender, Non-distended Extremities: Rt foot with visual deformity. Swelling on the sole with draining wound surrounded by erythema. Visible serous discharge. Non painful. Skin: Lymphedema on both legs. Stasis dermatitis on both legs Neuro: Cranial nerve gross normal, Motor and sensory exam grossly unremarkable, AOx3 Psych: Appropirate mood and affect, Fair insight. Internal Med - H&P Results - Labs CBC & Chem 7: 01/06/18 04:44 01/06/18 04:44 Labs: Short CBC 01/05/18 Range/Units 19:03 WBC 11.3 H (4.3-11.1) K/mcL Hgb 10.1 L (12.9-16.9) g/dL Hct 32.1 L (37.5-50.1) % Plt Count 241 (140-400) K/mcL - Assessment and plan (1) Cellulitis of plantar aspect of foot Current Visit: Yes Status: Acute Assessment and plan: Non healing ulcer with associated cellulitis. Failure of outpatient treatment with ciprofloxacin - Patient received Vancomycin in ER with allergic reaction of itching, SOB and apprehention. Will start patient on Broad spectrum Abx for cellutitis with linezolid and zosyn given his side effects to other antibiotics. - Podiatry has been consulted. Recommendation appreciated - f/u Blood culture (2) CHF (congestive heart failure) Current Visit: Yes Status: Acute Assessment and plan: - Has diastolic CHF as per last ECHO - Continue home coreg, statin, and Lasix with potassium - c/w lisinopril for HTN Qualifiers: Heart failure type: unspecified Qualified Code(s): I50.9 - Heart failure, unspecified (3) Charcot's joint of foot Current Visit: Yes Status: Acute Assessment and plan: - May need to be addressed surgically - Poditry recommendation appreciated Qualifiers: Laterality: right Qualified Code(s): M14.671 - Charcot's joint, right ankle and foot (4) Type 2 diabetes mellitus Current Visit: No Status: Acute Assessment and plan: Will continue on insulin but with decreased dose of home insulin and monitor for now Qualifiers: Diabetes mellitus custodial insulin use: without custodial use Diabetes mellitus complication status: with skin complications Diabetes mellitus complication detail: with foot ulcer Qualified Code(s): E11.621 - Type 2 diabetes mellitus with foot ulcer; L97.509 - Non-pressure chronic ulcer of other part of unspecified foot with unspecified severity (5) A-fib Current Visit: No Status: Chronic Assessment and plan: Currently in sinus rhythm - c/w coreg - On warfarin at home. Will switch to Heparin in case surgery is planned. Qualifiers: Atrial fibrillation type: chronic Qualified Code(s): I48.2 - Chronic atrial fibrillation (6) CKD (chronic kidney disease), stage III Current Visit: No Status: Chronic Assessment and plan: -Family Services Specialist at baseline - Will monitor (7) H/O deep venous thrombosis Current Visit: Yes Status: Acute (8) History of pulmonary embolism Current Visit: No Status: Acute Assessment and plan: ON coumadin at home - Currently switched to heparin in case surgery is planned. - Time Spent With Patient Total time spent is greater than 50% in coordination of care (as documented) at patient's floor/unit and/or counseling patient: Greater than 35 minutes
[2018-01-05] MEDS: Insulin DETEMIR 100 UNIT/ML X5UNITS SQ SCH (20:51)
[2018-01-05] MEDS: Furosemide 40 MG TABLET PO SCH (20:52)
[2018-01-05] MEDS: Heparin 25,000 UNIT/500 ML D5W 25,000 UNIT/500 ML BAG IVC SCH (21:55)
[2018-01-05] MEDS: Piperacillin/Tazobactam 3.375 GM in 0.9 % Sodium Chloride Mini Bag 100 ML IVPB SCH (21:55)
[2018-01-06 05:07] LABS: Basophils # 0.1 K/mcL (0.0-0.2); Basophils % 0.4 %; Eosinophils # 0.8 K/mcL (0.0-0.6); Eosinophils % 7.4 %; Hematocrit 30.6 % (37.5-50.1); Hemoglobin 9.5 g/dL (12.9-16.9); Immature Granulocytes % 0.4 % (0-4); Lymphocytes # 3.1 K/mcL (0.6-4.6); Lymphocytes % 27.2 %; Mean Corpuscular Hemoglobin 27.7 pg (28.0-33.3); Mean Corpuscular Volume 89.2 fL (83.0-100.0); Mean Platelet Volume 11.3 fL (9.4-12.4); Monocytes % 8.9 %; Neutrophils # 6.4 K/mcL (1.6-8.9); Platelet Count 251 K/mcL (140-400); Red Blood Count 3.43 M/mcL (4.19-5.50); Red Cell Distribution Width 15.1 % (11.5-14.5); Segmented Neutrophils % 55.7 %
[2018-01-06 05:30] LABS: Albumin 3.5 g/dL (3.5-5.7); Albumin/Globulin Ratio 1.3 (1.1-2.2); Bilirubin,Total 0.5 mg/dL (0.3-1.0); Calcium 8.7 mg/dL (8.6-10.3); Globulin 2.8 g/dL (2.4-3.5); Potassium 4.4 mEq/L (3.5-5.1); Total Protein 6.3 g/dL (6.4-8.9)
[2018-01-06] MEDS ORDERED: CARVEDILOL PHOSPHATE 80 MG PO SCH (09:00)
[2018-01-06] MEDS: Insulin LISPRO 300 UNITS/3 ML VIAL SQ SCH ×3 (09:38→17:41)
[2018-01-06] MEDS: Insulin DETEMIR 100 UNIT/ML X5UNITS SQ SCH ×2 (09:38→21:47)
[2018-01-06] MEDS: Piperacillin/Tazobactam 3.375 GM in 0.9 % Sodium Chloride Mini Bag 100 ML IVPB SCH ×2 (09:44→17:42)
[2018-01-06] MEDS: Furosemide 40 MG TABLET PO SCH ×2 (09:52→21:43)
[2018-01-06] MEDS: Loratadine 10 MG TABLET PO SCH (09:52)
[2018-01-06] MEDS: Lisinopril 20 MG TABLET PO SCH (09:52)
--- NOTE | 2018-01-06 10:38 | Podiatry Consult Note ---
Date of Encounter: 01/06/18 Time of Encounter: 10:00 Assessment and Plan (1) Chronic ulcer of right foot with fat layer exposed Current visit: No Status: Acute Reviewed with patient my findings and recommendations for treatment. We discussed the ulceration present in the infection in the soft tissue. He is neuropathic and his x-ray is consistent with a Charcot foot. Previous pathology from last admission in November when the bone was sent to the lab did not show osteomyelitis and I do not think he has osteomyelitis but he does have a soft tissue infection. He is tender which is concerning in the setting of neuropathy that he could potentially have an abscess so I did order an MRI to look for an abscess. mesalt packing for wound care. daily. weight bearing on heel in boot only. History of Present Illness HPI: Mr. Jones is a 52 year old diabetic male with a history of Charcot and came to the hospital yesterday to wound care with redness of his foot and a wound on the bottom which his was concerned was infected. He had been on oral antibiotics. He denies fever, chills, nausea, vomiting, shortness of breath, chest pain. Says his was concerned recalled to try to get an appointment with the wound care center and came in and they noticed increased redness and temperature of the foot compared to previous and he was sent to the emergency room for evaluation. He was admitted after failing outpatient oral antibiotics. He is an inpatient and receiving IV antibiotics. Past Med Surg Social Fam HX - Past Medical History Medical history: asthma, atrial fibrillation, CHF, DVT, diabetes, hyperlipidemia , hypertension, pulmonary embolus, renal disease, venous stasis, other Additional medical history: Charcot's foot, Venous insufficiency, morbid obesity Psychiatric history: no psych history - Past Surgical History Surgical History: herniorrhaphy Additional surgical history: Colonoscopy, I&D, - Social History Smoking Status: Never smoker Smokeless Tobacco Status: No Alcohol use: none Drug use: none - Family History Father Family Member Ethnicity: Non- Living Status: Still Living Hx Family Cardiac Disorders: Yes (Heart valve replacement, venous stasis) Hx Family Respiratory Disorders: No Hx Family Cancer: No Hx Family GI Disorders: No Hx Family Endocrine Disorder: No Hx Family Neuromuscular Disorders: No Hx Family Neurologic Disorders: No Hx Family HEENT Disorders: No Hx Family Autoimmune Disorders: No Mother Adopted: No Family Member Ethnicity: Non- Living Status: Hx Family Cardiac Disorders: Yes Hx Family Respiratory Disorders: No Hx Family Cancer: No Hx Family GI Disorders: No Hx Family Endocrine Disorder: Yes (DM) Hx Family Neuromuscular Disorders: No Hx Family Neurologic Disorders: Yes (Alzheimer's disease) Hx Family HEENT Disorders: No Hx Family Autoimmune Disorders: No Brother Family Member Ethnicity: Non- Living Status: Still Living Hx Family Cardiac Disorders: Yes (DVTs) Hx Family Respiratory Disorders: No Hx Family Cancer: No Hx Family GI Disorders: No Hx Family Endocrine Disorder: No Hx Family Neuromuscular Disorders: No Hx Family Neurologic Disorders: No Hx Family HEENT Disorders: No Hx Family Autoimmune Disorders: No Medications and Allergies Acetaminophen [Tylenol] 500 mg PO HS 12/02/16 [History] Carvedilol Phosphate [Coreg Cr] 80 mg PO DAILY 12/02/16 [History] Fluticasone/Salmeterol [Advair 250-50 Diskus] 1 each IH BID PRN 12/02/16 [ History] Furosemide [Lasix] 40 mg PO BID 12/02/16 [History] Insulin Glargine,Hum.rec.anlog [Lantus Solostar] 46 units SQ BID 12/02/16 [ History] Metformin HCl [Glucophage] 1,000 mg PO BID 12/02/16 [History] Pentoxifylline 400 mg PO BID 12/02/16 [History] Potassium Chloride 20 meq PO DAILY 12/02/16 [History] Pramipexole [Mirapex] 0.25 mg PO BID 12/02/16 [History] Loratadine [Claritin] 10 mg PO DAILY tablet 11/17/17 [Rx] Albuterol Sulfate [Ventolin Hfa] 2 puff IH Q4H PRN 01/05/18 [History] Atorvastatin [Lipitor] 40 mg PO HS 01/05/18 [History] Insulin LISPRO [HumaLOG] 10 units SQ TIDWM 01/05/18 [History] Lansoprazole [Prevacid] 30 mg PO DAILY 01/05/18 [History] Lisinopril [Zestril] 20 mg PO DAILY 01/05/18 [History] Warfarin [Coumadin] 4 mg PO TU 01/05/18 [History] Warfarin [C[facility]madin] [facility] 01/05/18 [History] 3 Allergy/AdvReac Type Severity Reaction Status Date / Time vancomycin Allergy Intermediate Itching Verified 01/05/18 19:34 peanut Allergy Anaphylaxis Verified 03/25/17 00:00 cephalexin [From Keflex] AdvReac Rash Verified 03/25/17 00:00 levofloxacin AdvReac Rash Verified 03/25/17 00:00 Sulfa (Sulfonamide AdvReac Rash Verified 03/25/17 00:00 Antibiotics) All Systems Reviewed: The remainder of the systems were reviewed and are negative - Constitutional Constitutional: no fever(s) - Cardiovascular Cardiovascular: no chest pain, no dyspnea - Respiratory Respiratory: no cough, no dyspnea - Musculoskeletal Musculoskeletal: numbness Physical Exam - Constitutional Vitals: Temp Pulse Resp BP Pulse Ox 98.8 F 73 16 129/68 95 01/06/18 06:40 01/06/18 06:40 01/06/18 06:40 01/06/18 06:40 01/06/18 10:00 General appearance: cooperative, no acute distress, obese - Ankle & Foot Exam: Well-developed obese male in no acute distress Vascular: Capillary refill time intact all digits of the right foot. Right foot is warm to touch. Moderate edema of the right foot. Ulceration plantar surface of the foot [id number]. No purulence. Erythema marked on the plantar foot. Absent protective sensation. Pain is able to be elicited with palpation of the plantar medial aspect of the foot. Patient has typical Charcot rocker bottom type foot with increased soft tissue density in the plantar foot. X-ray no soft tissue gas. Bone consistent with Charcot. Results - Labs Result Diagrams: 01/06/18 04:44 01/06/18 04:44 Labs: Abnormal lab results WBC 11.4 K/mcL (4.3-11.1) H 01/06/18 04:44 RBC 3.43 M/mcL (4.19-5.50) L 01/06/18 04:44 Hgb 9.5 g/dL (12.9-16.9) L 01/06/18 04:44 Hct 30.6 % (37.5-50.1) L 01/06/18 04:44 MCH 27.7 pg (28.0-33.3) L 01/06/18 04:44 MCHC 31.0 g/dL (31.6-35.5) L 01/06/18 04:44 RDW 15.1 % (11.5-14.5) H 01/06/18 04:44 Eosinophils # 0.8 K/mcL (0.0-0.6) H 01/06/18 04:44 PT 18.8 Seconds (9.4-12.1) H 01/05/18 19:03 Heparin Anti-Xa, Unfract 1.13 IU/mL (0.30-0.70) H* 01/06/18 04:44 BUN 23 mg/dL (6-20) H 01/06/18 04:44 Creatinine 1.67 mg/dL (0.70-1.30) H 01/06/18 04:44 Est GFR ( Amer) 53 (> 60) L 01/06/18 04:44 Est GFR (Non-Af Amer) 44 (> 60) L 01/06/18 04:44 Glucose 176 mg/dL (70-105) H 01/06/18 04:44 POC Glucose 171 mg/dL (70-99) H 01/05/18 19:50 Serum Total Protein 6.3 g/dL (6.4-8.9) L 01/06/18 04:44 H & H 01/05/18 01/06/18 Range/Units 19:03 04:44 Hgb 10.1 L 9.5 L (12.9-16.9) g/dL Hct 32.1 L 30.6 L (37.5-50.1) % All other labs normal. Consult Discharge Plan - Plan Referrals: Jaime Paula MD [Primary Care Provider] -
[2018-01-06] MEDS: Heparin 25,000 UNIT/500 ML D5W 25,000 UNIT/500 ML BAG IVC SCH ×2 (10:40→14:20)
--- NOTE | 2018-01-06 11:37 | Internal Med Progress Note ---
Hospitalist Progress Note - Encounter Date of Encounter: 01/06/18 Time of Encounter: 10:55 - Subjective Interval History: Patient seen and examination this morning. No new symptoms. - Exam Vitals: Temp Pulse Resp BP Pulse Ox 98.8 F 73 16 129/68 95 01/06/18 06:40 01/06/18 06:40 01/06/18 06:40 01/06/18 06:40 01/06/18 10:00 Exam: Constitutional: In no distress, Sitting comfortably. Morbidly obese HEENT: PEARLA, No JVD, No lymphadenopathy CVS: S1, S2 normal, No MRG, RRR RS: Air entry equal, CTA ABdomen: Obese, Soft, Non-tender, Non-distended Extremities: Rt foot with visual deformity. Swelling on the sole with draining wound surrounded by erythema. Visible serous discharge. Non painful. Dressing in place Skin: Lymphedema on both legs. Stasis dermatitis on both legs Neuro: Cranial nerve gross normal, Motor and sensory exam grossly unremarkable, AOx3 Psych: Appropirate mood and affect, Fair insight. - Assessment and Plan (1) Cellulitis of plantar aspect of foot Current Visit: Yes Status: Acute (2) CHF (congestive heart failure) Current Visit: Yes Status: Acute (3) Charcot's joint of foot Current Visit: Yes Status: Acute (4) Type 2 diabetes mellitus Current Visit: No Status: Acute (5) A-fib Current Visit: No Status: Chronic (6) CKD (chronic kidney disease), stage III Current Visit: No Status: Chronic (7) H/O deep venous thrombosis Current Visit: Yes Status: Acute (8) History of pulmonary embolism Current Visit: No Status: Acute - Summary of Assessment and Plan Summary of Assessment and Plan: Cellulitis of plantar aspect of foot: - Non healing ulcer with associated cellulitis. Failure of outpatient treatment with ciprofloxacin - Patient received Vancomycin in ER with allergic reaction of itching, SOB and apprehension. Continue linezolid and zosyn given his side effects to other antibiotics. Will get ID consult on Monday. - Podiatry has been consulted. Recommendation appreciated. Agree with MRI. Ok to hold heparin for 1 hr for MRI. - Blood culture NGTD Charcot's joint of foot - May need to be addressed surgically - Podiatry recommendation appreciated CHF (congestive heart failure) - Has diastolic CHF as per last ECHO - Continue home coreg, statin, and Lasix with potassium - c/w lisinopril for HTN Type 2 diabetes mellitus - Will continue on insulin but with decreased dose of home insulin and monitor for now A-fib - Currently in sinus rhythm - c/w coreg - On warfarin at home. Will switch to Heparin in case surgery is planned. 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 DVT ppx: -ON heparin drip - Time Spent with Patient Total time spent is greater than 50% in coordination of care (as documented) at patient's floor/unit and/or counseling patient: Internal Medicine: Result - Labs CBC & Chem 7: 01/06/18 04:44 01/06/18 04:44 Labs: Short CBC 01/05/18 01/06/18 Range/Units 19:03 04:44 WBC 11.3 H 11.4 H (4.3-11.1) K/mcL Hgb 10.1 L 9.5 L (12.9-16.9) g/dL Hct 32.1 L 30.6 L (37.5-50.1) % Plt Count 241 251 (140-400) K/mcL Neutrophils # 6.4 (1.6-8.9) K/mcL BMP 01/06/18 04:44 Sodium 138 Potassium 4.4 Chloride 104 Carbon Dioxide 24 BUN 23 H Creatinine 1.67 H Glucose 176 H Calcium 8.7 Liver Function 01/06/18 Range/Units 04:44 Total Bilirubin 0.5 (0.3-1.0) mg/dL AST 15 (13-39) Units/L ALT 13 (7-52) Units/L Alkaline Phosphatase 77 (34-104) Units/L Albumin 3.5 (3.5-5.7) g/dL - ABG Interpretation ABG results: PT/INR, D-dimer PT 18.8 Seconds (9.4-12.1) H 01/05/18 19:03 - VTE Documentation of Mechanical Device: Graduated compression elastic hosiery Consult Discharge Plan - Plan Referrals: Jaime Paula MD [Primary Care Provider] - (2) CHF (congestive heart failure) Qualifiers: Heart failure type: unspecified (3) Charcot's joint of foot Qualifiers: Laterality: right Qualified Code(s): M14.671 - Charcot's joint, right ankle and foot (4) Type 2 diabetes mellitus Qualifiers: Diabetes mellitus mcfp insulin use: without mcfp use Diabetes mellitus complication status: with skin complications Diabetes mellitus complication detail: with foot ulcer Qualified Code(s): E11.621 - Type 2 diabetes mellitus with foot ulcer; L97.509 - Non-pressure chronic ulcer of other part of unspecified foot with unspecified severity (5) A-fib Qualifiers: Atrial fibrillation type: chronic Qualified Code(s): I48.2 - Chronic atrial fibrillation
[2018-01-07] MEDS: Piperacillin/Tazobactam 3.375 GM in 0.9 % Sodium Chloride Mini Bag 100 ML IVPB SCH ×3 (00:17→17:20)
[2018-01-07] MEDS: Heparin 25,000 UNIT/500 ML D5W 25,000 UNIT/500 ML BAG IVC SCH ×2 (00:28→14:38)
[2018-01-07] MEDS: Loratadine 10 MG TABLET PO SCH (08:58)
[2018-01-07] MEDS: Furosemide 40 MG TABLET PO SCH ×2 (08:58→20:26)
[2018-01-07] MEDS: Lisinopril 20 MG TABLET PO SCH (08:58)
[2018-01-07] MEDS: Insulin LISPRO 300 UNITS/3 ML VIAL SQ SCH ×5 (09:03→17:21)
[2018-01-07] MEDS: Insulin DETEMIR 100 UNIT/ML X5UNITS SQ SCH ×2 (10:20→20:26)
--- NOTE | 2018-01-07 14:08 | Internal Med Progress Note ---
Hospitalist Progress Note - Encounter Date of Encounter: 01/07/18 Time of Encounter: 08:16 - Subjective Interval History: Patient seen and examination this morning. No new symptoms. NO fever, chills or diarrhea. - Exam Vitals: Temp Pulse Resp BP Pulse Ox 98.5 F 76 18 110/70 96 01/07/18 11:31 01/07/18 11:31 01/07/18 11:31 01/07/18 11:31 01/07/18 11:31 Exam: Constitutional: In no distress, Sitting comfortably. Morbidly obese HEENT: PEARLA, No JVD, No lymphadenopathy CVS: S1, S2 normal, No MRG, RRR RS: Air entry equal, CTA ABdomen: Obese, Soft, Non-tender, Non-distended Extremities: Rt foot with visual deformity. Swelling on the sole with draining wound surrounded by erythema. Visible serous discharge. Non painful. Dressing in place Skin: Lymphedema on both legs. Stasis dermatitis on both legs Neuro: Cranial nerve gross normal, Motor and sensory exam grossly unremarkable, AOx3 Psych: Appropirate mood and affect, Fair insight. - Assessment and Plan (1) Cellulitis of plantar aspect of foot Current Visit: Yes Status: Acute (2) CHF (congestive heart failure) Current Visit: Yes Status: Acute (3) Charcot's joint of foot Current Visit: Yes Status: Acute (4) Type 2 diabetes mellitus Current Visit: No Status: Acute (5) A-fib Current Visit: No Status: Chronic (6) CKD (chronic kidney disease), stage III Current Visit: No Status: Chronic (7) H/O deep venous thrombosis Current Visit: Yes Status: Acute (8) History of pulmonary embolism Current Visit: No Status: Acute - Summary of Assessment and Plan Summary of Assessment and Plan: Cellulitis of plantar aspect of foot: - Non healing ulcer with associated cellulitis. Failure of outpatient treatment with ciprofloxacin - Patient received Vancomycin in ER with allergic reaction of itching, SOB and apprehension. Continue linezolid and zosyn given his side effects to other antibiotics. Will get ID consult on Monday. - Podiatry has been consulted. Recommendation appreciated. - MRI showed cuboid osteomyelitis. Will Keep NPO after midnight if surgery is planned. Can stop heparin 4-6 hr before surgery. - Blood culture NGTD. Charcot's joint of foot - May need to be addressed surgically - Podiatry recommendation appreciated CHF (congestive heart failure) - Has diastolic CHF as per last ECHO - Continue home coreg, statin, and Lasix with potassium - c/w lisinopril for HTN Type 2 diabetes mellitus - Will continue on insulin but with decreased dose of home insulin and monitor for now A-fib - Currently in sinus rhythm - c/w coreg - On warfarin at home. Will switch to Heparin in case surgery is planned. 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 DVT ppx: - ON heparin drip - Time Spent with Patient Total time spent is greater than 50% in coordination of care (as documented) at patient's floor/unit and/or counseling patient: Internal Medicine: Result - Labs CBC & Chem 7: 01/06/18 04:44 01/06/18 04:44 - ABG Interpretation ABG results: PT/INR, D-dimer PT 18.8 Seconds (9.4-12.1) H 01/05/18 19:03 - Impressions Impressions Foot MRI 01/06/18 10:44 IMPRESSION: 1. New since the prior exam is a midline plantar aspect ulceration at the level of the midfoot with progressive plantar soft tissue inflammatory changes suggesting cellulitis with no definite abscess. 2. 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 D/ / 01/06/2018 15:26:37 Elton Tao MD / jane Interpreting Provider: Elton Tao MD - VTE Documentation of Mechanical Device: Graduated compression elastic hosiery Consult Discharge Plan - Plan Referrals: Jaime Paula MD [Primary Care Provider] - (2) CHF (congestive heart failure) Qualifiers: Heart failure type: unspecified (3) Charcot's joint of foot Qualifiers: Laterality: right Qualified Code(s): M14.671 - Charcot's joint, right ankle and foot (4) Type 2 diabetes mellitus Qualifiers: Diabetes mellitus long-term insulin use: without long-term use Diabetes mellitus complication status: with skin complications Diabetes mellitus complication detail: with foot ulcer Qualified Code(s): E11.621 - Type 2 diabetes mellitus with foot ulcer; L97.509 - Non-pressure chronic ulcer of other part of unspecified foot with unspecified severity (5) A-fib Qualifiers: Atrial fibrillation type: chronic Qualified Code(s): I48.2 - Chronic atrial fibrillation
[2018-01-07 14:28] LABS: INR 1.6; Prothrombin Time 18.2 Seconds (9.4-12.1)
[2018-01-08] MEDS: Piperacillin/Tazobactam 3.375 GM in 0.9 % Sodium Chloride Mini Bag 100 ML IVPB SCH ×2 (00:33→07:45)
[2018-01-08] MEDS: Heparin 25,000 UNIT/500 ML D5W 25,000 UNIT/500 ML BAG IVC SCH ×2 (02:36→17:19)
[2018-01-08] MEDS: Insulin LISPRO 300 UNITS/3 ML VIAL SQ SCH ×6 (07:46→17:36)
[2018-01-08] MEDS: Insulin DETEMIR 100 UNIT/ML X5UNITS SQ SCH ×2 (07:47→21:44)
[2018-01-08] MEDS: Lisinopril 20 MG TABLET PO SCH (07:47)
[2018-01-08] MEDS: Loratadine 10 MG TABLET PO SCH (07:47)
[2018-01-08] MEDS: Furosemide 40 MG TABLET PO SCH ×2 (07:48→21:17)
--- NOTE | 2018-01-08 11:19 | Infectious Disease Consult ---
Date of Encounter: 01/08/18 Time of Encounter: 11:17 Assessment and Plan (1) Osteomyelitis of right foot Status: Acute Assessment and plan: Wound present for almost 2 years and being treated by wound care Multiple previous cultures revealed MRSA Had Enterobacter Cloacae on multiple occasions MRI reviewed revealing osteomyelitis Had an allergic reaction to vancomycin was switched to Zyvox Has multiple drug allergies including Keflex, levofloxacin and sulfa At this point I will check inflammatory markers. DC Zyvox and Zosyn start the patient on ertapenem based on previous cultures Get an MRSA nasal swab to rule out MRSA carrier state Await podiatry's recommendation for surgical intervention versus non-surgery Monitor labs and for drug toxicity Duration of treatment depends on clinical picture but likely 6 weeks Qualifiers: Osteomyelitis type: other acute Qualified Code(s): M86.171 - Other acute osteomyelitis, right ankle and foot (2) Cellulitis of right foot Status: Acute (3) Diabetic foot ulcer Status: Acute Qualifiers: Diabetic foot ulcer location: other Diabetes mellitus type: type 2 Laterality: right Non-pressure ulcer stage: unspecified non-pressure ulcer stage Qualified Code(s): E11.621 - Type 2 diabetes mellitus with foot ulcer; L97.519 - Non-pressure chronic ulcer of other part of right foot with unspecified severity (4) History of pulmonary embolism Status: Acute (5) Morbid obesity with BMI of 50.0-59.9, adult Status: Chronic (6) Cnegi-ef-nstlcia kidney injury Status: Acute Qualifiers: Acute renal failure type: unspecified Chronic kidney disease stage: stage 4 (severe) Qualified Code(s): N17.9 - Acute kidney failure, unspecified; N18.4 - Chronic kidney disease, stage 4 (severe) (7) Allergy to multiple antibiotics Status: Acute Assessment and plan: Had a pretty aggressive rash and breathing problem with vancomycin. He has taken vancomycin in the past I do not believe this is "red man" syndrome (8) Charcot's joint of foot Status: Acute Qualifiers: Laterality: right Qualified Code(s): M14.671 - Charcot's joint, right ankle and foot (9) Type 2 diabetes mellitus Status: Acute Qualifiers: Diabetes mellitus intermediate teacher insulin use: without fpc use Diabetes mellitus complication status: with skin complications Diabetes mellitus complication detail: with foot ulcer Qualified Code(s): E11.621 - Type 2 diabetes mellitus with foot ulcer; L97.509 - Non-pressure chronic ulcer of other part of unspecified foot with unspecified severity (10) AF (atrial fibrillation) Status: Chronic Qualifiers: Atrial fibrillation type: chronic Qualified Code(s): I48.2 - Chronic atrial fibrillation (11) H/O deep venous thrombosis Status: Acute Infectious Disease HPI - Data of Consult Patient: new to practice Consult date: 01/08/18 Requesting Physician: Cuauhtemoc Del Cid MD Primary Care Provider: Jaime Paula MD - Consult Narrative Reason for consult: osteomyelitis History of present illness: Mr. Jones is a 52 year old male Patient is a 52-year-old gentleman who presented to [facility] on 01/05/2018 with a foot wounds, we are consulted on 01/08/2018 for cuboid osteomyelitis. Patient is a 52-year-old gentleman with past medical history mentioned below including diabetes mellitus type 2, CHF, history of a DVT and PE, venous stasis and chronic kidney disease and history of Charcot foot presented to [facility] on January 05 for a foot wound. This is apparently a chronic wound that is being followed by wound care doctor Sulema. On December 28 patient was evaluated and Dr. Leone note reveals that the bottom of his foot wound has opened up and has been red for a few days. Patient is known to have multiple allergies so patient was started on levofloxacin and sent home. Apparently patient wound pain and redness and swelling got worse patient was evaluated in wound care and sent to the hospital for further evaluation. At home patient did not have any fevers, chills, night sweats, nausea or vomiting. Patient had no chest pain or shortness of breath. Patient had no diarrhea. Since admission, patient has been afebrile with a MAXIMUM TEMPERATURE of 99. Patient had a few episodes of tachycardia. Rest of the vital signs have been stable. Presenting labs revealed a WBC of 11.3 with 65% neutrophils no bands. Patients INR was 1.7 and subtherapeutic. Patient creatinine was 1.34. Blood cultures were obtained on 01/05 and 2 out of 2 sets are no growth to date. An MRI of the foot on the right revealed midline plantar aspect ulceration at the level of the mid foot with progressive plantar soft tissue inflammatory changes suggesting cellulitis with no definite abscess. There is a new adjacent plantar cuboid osteomyelitis. Patient was given vancomycin but apparently had an allergic reaction as per records. Patient was switched to Zosyn and Zyvox and we were consulted for further evaluation. Currently patient sitting up in chair. Appears comfortable. No acute distress. Patient denies any chest pain no shortness of breath. No headache no URI symptoms. No abdominal pain no nausea or vomiting or diarrhea. No urinary symptoms. CC: Cuauhtemoc Del Cid MD Past Med Surg Social Fam HX - Past Medical History Medical history: asthma, atrial fibrillation, CHF, DVT, diabetes, hyperlipidemia , hypertension, pulmonary embolus, renal disease, venous stasis, other Additional medical history: Charcot's foot, Venous insufficiency, morbid obesity Psychiatric history: no psych history - Past Surgical History Surgical History: herniorrhaphy Additional surgical history: Colonoscopy, I&D, - Social History Smoking Status: Never smoker Smokeless Tobacco Status: No Alcohol use: none Drug use: none - Family History Father Family Member Ethnicity: Non- Living Status: Still Living Hx Family Cardiac Disorders: Yes (Heart valve replacement, venous stasis) Hx Family Respiratory Disorders: No Hx Family Cancer: No Hx Family GI Disorders: No Hx Family Endocrine Disorder: No Hx Family Neuromuscular Disorders: No Hx Family Neurologic Disorders: No Hx Family HEENT Disorders: No Hx Family Autoimmune Disorders: No Mother Adopted: No Family Member Ethnicity: Non- Living Status: Hx Family Cardiac Disorders: Yes Hx Family Respiratory Disorders: No Hx Family Cancer: No Hx Family GI Disorders: No Hx Family Endocrine Disorder: Yes (DM) Hx Family Neuromuscular Disorders: No Hx Family Neurologic Disorders: Yes (Alzheimer's disease) Hx Family HEENT Disorders: No Hx Family Autoimmune Disorders: No Brother Family Member Ethnicity: Non- Living Status: Still Living Hx Family Cardiac Disorders: Yes (DVTs) Hx Family Respiratory Disorders: No Hx Family Cancer: No Hx Family GI Disorders: No Hx Family Endocrine Disorder: No Hx Family Neuromuscular Disorders: No Hx Family Neurologic Disorders: No Hx Family HEENT Disorders: No Hx Family Autoimmune Disorders: No Infectious Disease-CN:Meds Acetaminophen [Tylenol] 500 mg PO HS 12/02/16 [History] Carvedilol Phosphate [Coreg Cr] 80 mg PO DAILY 12/02/16 [History] Fluticasone/Salmeterol [Advair 250-50 Diskus] 1 each IH BID PRN 12/02/16 [ History] Furosemide [Lasix] 40 mg PO BID 12/02/16 [History] Insulin Glargine,Hum.rec.anlog [Lantus Solostar] 46 units SQ BID 12/02/16 [ History] Metformin HCl [Glucophage] 1,000 mg PO BID 12/02/16 [History] Pentoxifylline 400 mg PO BID 12/02/16 [History] Potassium Chloride 20 meq PO DAILY 12/02/16 [History] Pramipexole [Mirapex] 0.25 mg PO BID 12/02/16 [History] Loratadine [Claritin] 10 mg PO DAILY tablet 11/17/17 [Rx] Albuterol Sulfate [Ventolin Hfa] 2 puff IH Q4H PRN 01/05/18 [History] Atorvastatin [Lipitor] 40 mg PO HS 01/05/18 [History] Insulin LISPRO [HumaLOG] 10 units SQ TIDWM 01/05/18 [History] Lansoprazole [Prevacid] 30 mg PO DAILY 01/05/18 [History] Lisinopril [Zestril] 20 mg PO DAILY 01/05/18 [History] Warfarin [Coumadin] 4 mg PO TU 01/05/18 [History] Warfarin [Coumadin] 8 mg PO SUMOWETHFRSA 01/05/18 [History] 3 Allergy/AdvReac Type Severity Reaction Status Date / Time vancomycin Allergy Intermediate Itching Verified 01/05/18 19:34 peanut Allergy Anaphylaxis Verified 03/25/17 00:00 cephalexin [From Keflex] AdvReac Rash Verified 03/25/17 00:00 levofloxacin AdvReac Rash Verified 03/25/17 00:00 Sulfa (Sulfonamide AdvReac Rash Verified 03/25/17 00:00 Antibiotics) Review of systems: 10 point review of systems done, negative other for what is mentioned in history of present illness. Exam - Constitutional Vitals: Temp Pulse Resp BP Pulse Ox 97.8 F 75 17 138/72 96 01/08/18 06:53 01/08/18 06:53 01/08/18 06:53 01/08/18 06:53 01/08/18 06:53 General appearance: no acute distress, no febrile - Head Head exam: Present: atraumatic, normocephalic - Eye Eye exam: Present: EOMI, PERRL - ENT ENT exam: Present: mucous membranes dry Additional comments: No oral lesions - Neck Neck exam: Present: full ROM. Absent: meningismus - Respiratory Respiratory exam: Present: CTAB. Absent: wheezes - Cardiovascular Cardiovascular exam: Present: RRR, +S1, +S2 - GI/Abdominal GI/Abdominal exam: Present: normal bowel sounds, soft. Absent: tenderness - Extremities Exam Additional comments: Right foot surgically wrapped. No surrounding erythema. - Neurological Exam Neurological exam: Present: alert, oriented X3. Absent: facial droop Infectious Disease CN: Results - Labs CBC & Chem 7: 01/06/18 04:44 01/06/18 04:44 - VTE Documentation of Mechanical Device: Graduated compression elastic hosiery Consult Discharge Plan - Plan Referrals: Jaime Paula MD [Primary Care Provider] -
--- NOTE | 2018-01-08 12:55 | Internal Med Progress Note ---
Hospitalist Progress Note - Encounter Date of Encounter: 01/08/18 Time of Encounter: 08:16 - Subjective Interval History: Patient seen and examination this morning. NO fever, chills or diarrhea. - Exam Vitals: Temp Pulse Resp BP Pulse Ox 97.8 F 75 17 138/72 96 01/08/18 06:53 01/08/18 06:53 01/08/18 06:53 01/08/18 06:53 01/08/18 06:53 Exam: Constitutional: In no distress, Sitting comfortably. Morbidly obese HEENT: PEARLA, No JVD, No lymphadenopathy CVS: S1, S2 normal, No MRG, RRR RS: Air entry equal, CTA ABdomen: Obese, Soft, Non-tender, Non-distended Extremities: Rt foot with visual deformity. Swelling on the sole with draining wound surrounded by erythema. Visible serous discharge. Non painful. Dressing in place Skin: Lymphedema on both legs. Stasis dermatitis on both legs Neuro: Cranial nerve gross normal, Motor and sensory exam grossly unremarkable, AOx3 Psych: Appropirate mood and affect, Fair insight. - Assessment and Plan (1) Cellulitis of plantar aspect of foot Current Visit: Yes Status: Acute (2) CHF (congestive heart failure) Current Visit: Yes Status: Acute (3) Charcot's joint of foot Current Visit: Yes Status: Acute (4) Type 2 diabetes mellitus Current Visit: No Status: Acute (5) A-fib Current Visit: No Status: Chronic (6) CKD (chronic kidney disease), stage III Current Visit: No Status: Chronic (7) H/O deep venous thrombosis Current Visit: Yes Status: Acute (8) History of pulmonary embolism Current Visit: No Status: Acute - Summary of Assessment and Plan Summary of Assessment and Plan: Cellulitis of plantar aspect of foot: - Non healing ulcer with associated cellulitis. Failure of outpatient treatment with ciprofloxacin - Patient received Vancomycin in ER with allergic reaction of itching, SOB and apprehension. Continue linezolid and zosyn given his side effects to other antibiotics. ID consulted. - Podiatry has been consulted. Recommendation appreciated. - MRI showed cuboid osteomyelitis. Will Keep NPO after midnight if surgery is planned. Can stop heparin 4-6 hr before surgery. - Blood culture NGTD. Charcot's joint of foot - May need to be addressed surgically - Podiatry recommendation appreciated CHF (congestive heart failure) - Has diastolic CHF as per last ECHO - Continue home coreg, statin, and Lasix with potassium - c/w lisinopril for HTN Type 2 diabetes mellitus - Will continue on insulin but with decreased dose of home insulin and monitor for now A-fib - Currently in sinus rhythm - c/w coreg - On warfarin at home. Will switch to Heparin in case surgery is planned. CKD (chronic kidney disease), stage III - Vp Research at baseline - Will monitor H/O deep venous thrombosis History of pulmonary embolism - ON coumadin at home - Currently switched to heparin in case surgery is planned. DVT ppx: - ON heparin drip - Time Spent with Patient Total time spent is greater than 50% in coordination of care (as documented) at patient's floor/unit and/or counseling patient: Internal Medicine: Result - Labs CBC & Chem 7: 01/06/18 04:44 01/06/18 04:44 - ABG Interpretation ABG results: PT/INR, D-dimer PT 18.2 Seconds (9.4-12.1) H 01/07/18 14:14 - VTE Documentation of Mechanical Device: Graduated compression elastic hosiery Consult Discharge Plan - Plan Referrals: Jaime Paula MD [Primary Care Provider] - (2) CHF (congestive heart failure) Qualifiers: Heart failure type: unspecified (3) Charcot's joint of foot Qualifiers: Laterality: right Qualified Code(s): M14.671 - Charcot's joint, right ankle and foot (4) Type 2 diabetes mellitus Qualifiers: Diabetes mellitus care home insulin use: without retail link analyst use Diabetes mellitus complication status: with skin complications Diabetes mellitus complication detail: with foot ulcer Qualified Code(s): E11.621 - Type 2 diabetes mellitus with foot ulcer; L97.509 - Non-pressure chronic ulcer of other part of unspecified foot with unspecified severity (5) A-fib Qualifiers: Atrial fibrillation type: chronic Qualified Code(s): I48.2 - Chronic atrial fibrillation
--- NOTE | 2018-01-08 17:01 | Podiatry Progress Note ---
Date of Encounter: 01/08/18 Time of Encounter: 12:00 - Assessment and Plan (1) Cellulitis of plantar aspect of foot Current Visit: Yes Status: Acute Packing removed, flushed with saline and cultures obtained for wound culture There is a moderate amount of thick yellow drainage noted to wound, no odor Noted surrounding erythema edema and warmth which has decreased since yesterday Repacked wound with mesalt and applied thick bulk dressing. MRI reviewed nothing report of new adjacent plantar cuboid osteomyelitis. ID on board At this time will treat with extensive IV antibiotics only Will need daily dressing changes with mesalt packing and bulk dressing Will need to have appointment made to be seen in wound care clinic with 1 week following discharge Will continue to monitor closely. WBC 11.4 temp 97.4 and vital signs stable Subjective Interval history: Mr. Jones is a 52 year old diabetic male with a history of Charcot who came to ED with complaints of worsening pain and redness of foot. An abscess was lanced open per and packing was placed to wound. Patient reports that foot feels much better today. Patient is currently receiving IV antibiotics. Patient denies any known fevers, chills, n/v or flu like symptoms. Dressing to foot CDI. Objective - Vital Signs Vital Signs: Vital Signs Temp Pulse Resp BP Pulse Ox 01/08/18 15:40 97.4 F L 72 18 141/82 96 01/08/18 06:53 97.8 F 75 17 138/72 96 01/08/18 04:19 98.0 F 64 18 116/70 96 01/07/18 23:19 98.9 F 73 18 119/73 95 01/07/18 18:43 98.4 F 81 18 111/60 97 Intake and Output 01/08/18 01/08/18 01/08/18 07:59 15:59 23:59 Intake Total 800 / 800 Output Total 0 / 0 Balance 800 / 800 0 / 0 Intake: IV Fluids 600 / 600 Heparin 25,000 UNIT/500 ML D5W 500 / 500 25,000 unit In 500 ml @ 14 UNIT /KG/HR 48.77 mls/hr IVC . [id number] [facility] Rx#:[id number] Zosyn 3.375 GM In 0.9 % Sodium 100 / 100 Chloride (Mini-Bag +) 100 ML @ 25 mls/hr IVPB Q8HR [facility] Rx#: [id number] Oral 200 / 200 Output: Urine 0 / 0 Other: Stool Size Large # Voids 1 # Bowel Movements 1 Blood Glucose* 164 131 - Exam Exam: General Examination: CONSTITUTIONAL: Alert, oriented, in no acute distress, non-toxic. EXTREMITIES: CFT 3 seconds all toes. Edema +1 and pedal pulses palpable. SKIN: Skin with decreased turgor, decreased subcutaneous tissue, skin thin and shiny with trophic changes associated with comorbidities as described in history.. Open - created ulceration noted to plantar aspect of right foot as made to release abscess formation. Surrounding edema and erythema has decreased since previous exam. Patient reports his foot does look better to him. Scant thick yellow drainage noted to packing. [id number] depth. No odor. NEUROLOGIC: Minimal sensation to light or moderate touch MUSCULOSKELETAL: Charcot deformity of right foot - Lab Result Diagrams: 01/06/18 04:44 01/06/18 04:44 Labs: Abnormal lab results WBC 11.4 K/mcL (4.3-11.1) H 01/06/18 04:44 RBC 3.43 M/mcL (4.19-5.50) L 01/06/18 04:44 Hgb 9.5 g/dL (12.9-16.9) L 01/06/18 04:44 Hct 30.6 % (37.5-50.1) L 01/06/18 04:44 MCH 27.7 pg (28.0-33.3) L 01/06/18 04:44 MCHC 31.0 g/dL (31.6-35.5) L 01/06/18 04:44 RDW 15.1 % (11.5-14.5) H 01/06/18 04:44 Eosinophils # 0.8 K/mcL (0.0-0.6) H 01/06/18 04:44 PT 18.2 Seconds (9.4-12.1) H 01/07/18 14:14 BUN 23 mg/dL (6-20) H 01/06/18 04:44 Creatinine 1.67 mg/dL (0.70-1.30) H 01/06/18 04:44 Est GFR ( Amer) 53 (> 60) L 01/06/18 04:44 Est GFR (Non-Af Amer) 44 (> 60) L 01/06/18 04:44 Glucose 176 mg/dL (70-105) H 01/06/18 04:44 POC Glucose 164 mg/dL (70-99) H 01/08/18 06:53 Serum Total Protein 6.3 g/dL (6.4-8.9) L 01/06/18 04:44 - VTE Documentation of Mechanical Device: Graduated compression elastic hosiery Consult Discharge Plan - Plan Referrals: Jaime Paula MD [Primary Care Provider] -
[2018-01-08] MEDS: Meropenem 1,000 MG in 0.9 % Sodium Chloride Mini Bag 100 ML IVPB SCH ×2 (17:33→23:32)
[2018-01-09] MEDS: Heparin 25,000 UNIT/500 ML D5W 25,000 UNIT/500 ML BAG IVC SCH ×3 (05:38→18:41)
--- NOTE | 2018-01-09 07:08 | Podiatry Progress Note ---
Date of Encounter: 01/09/18 Time of Encounter: 06:25 - Assessment and Plan (1) Chronic ulcer of right foot with fat layer exposed Current Visit: No Status: Acute wound care with mesalt packing. (2) Osteomyelitis of right foot Current Visit: Yes Status: Acute MRI shows new enhancement of cuboid concerning for osteomyelitis. Infectious disease has seen the patient. Will obtain bone samples Monday for pathology and microbiology to possibly better help direct antibiotics. nature of the bone biopsy procedure, risks vs benefits potential complications and consequences of surgery discussed at length. All the patient's questions were answered and informed consent was signed. Patient be nothing by mouth after midnight for procedure on Monday. Qualifiers: Osteomyelitis type: other acute Qualified Code(s): M86.171 - Other acute osteomyelitis, right ankle and foot Objective - Vital Signs Vital Signs: Vital Signs Temp Pulse Resp BP Pulse Ox 01/09/18 03:51 97.8 F 81 15 104/61 96 01/08/18 20:05 95 01/08/18 19:50 97.8 F 78 16 134/87 95 01/08/18 15:40 97.4 F L 72 18 141/82 96 Intake and Output 01/08/18 01/08/18 01/09/18 15:59 23:59 07:59 Intake Total 500 / 500 340 / 340 1080 / 1080 Output Total 0 / 0 Balance 500 / 500 340 / 340 1080 / 1080 Intake: IV Fluids 500 / 500 100 / 100 600 / 600 Heparin 25,000 UNIT/500 ML D5W 500 / 500 500 / 500 25,000 unit In 500 ml @ 14 UNIT /KG/HR 48.77 mls/hr IVC . [id number] [facility] Rx#:[id number] Merrem 1,000 MG In 0.9 % Sodium 100 / 100 100 / 100 Chloride (Mini-Bag +) 100 ML @ 200 mls/hr IVPB Q8HR [facility] Rx#: [id number] Oral 240 / 240 480 / 480 Output: Urine 0 / 0 Other: Meal Dinner Percent of Meal Consumed 80% Stool Size Large # Voids 1 # Bowel Movements 1 1 Weight 176.3 kg Blood Glucose* 131 238 Patient Weight 01/09/18 23:59 Weight 176.3 kg - Lab Result Diagrams: 01/06/18 04:44 01/06/18 04:44 Labs: Abnormal lab results WBC 11.4 K/mcL (4.3-11.1) H 01/06/18 04:44 RBC 3.43 M/mcL (4.19-5.50) L 01/06/18 04:44 Hgb 9.5 g/dL (12.9-16.9) L 01/06/18 04:44 Hct 30.6 % (37.5-50.1) L 01/06/18 04:44 MCH 27.7 pg (28.0-33.3) L 01/06/18 04:44 MCHC 31.0 g/dL (31.6-35.5) L 01/06/18 04:44 RDW 15.1 % (11.5-14.5) H 01/06/18 04:44 Eosinophils # 0.8 K/mcL (0.0-0.6) H 01/06/18 04:44 ESR 62 mm/hr (0-10) H 01/09/18 01:31 PT 18.2 Seconds (9.4-12.1) H 01/07/18 14:14 Heparin Anti-Xa, Unfract 0.05 IU/mL (0.30-0.70) L 01/09/18 01:31 BUN 23 mg/dL (6-20) H 01/06/18 04:44 Creatinine 1.67 mg/dL (0.70-1.30) H 01/06/18 04:44 Est GFR ( Amer) 53 (> 60) L 01/06/18 04:44 Est GFR (Non-Af Amer) 44 (> 60) L 01/06/18 04:44 Glucose 176 mg/dL (70-105) H 01/06/18 04:44 POC Glucose 238 mg/dL (70-99) H 01/08/18 21:09 C-Reactive Protein 17 mg/L (Less than 10) H 01/09/18 01:31 Serum Total Protein 6.3 g/dL (6.4-8.9) L 01/06/18 04:44 - VTE Documentation of Mechanical Device: Graduated compression elastic hosiery Consult Discharge Plan - Plan Referrals: Jaime Paula MD [Primary Care Provider] -
[2018-01-09] MEDS: Insulin DETEMIR 100 UNIT/ML X5UNITS SQ SCH ×2 (08:31→21:12)
[2018-01-09] MEDS: Insulin LISPRO 300 UNITS/3 ML VIAL SQ SCH ×6 (08:32→16:39)
[2018-01-09] MEDS: Meropenem 1,000 MG in 0.9 % Sodium Chloride Mini Bag 100 ML IVPB SCH ×3 (08:33→23:27)
[2018-01-09] MEDS: Lisinopril 20 MG TABLET PO SCH (08:34)
[2018-01-09] MEDS: Furosemide 40 MG TABLET PO SCH ×2 (08:34→21:11)
[2018-01-09] MEDS: Loratadine 10 MG TABLET PO SCH (08:35)
--- NOTE | 2018-01-09 10:08 | Internal Med Progress Note ---
Hospitalist Progress Note - Encounter Date of Encounter: 01/09/18 Time of Encounter: 10:00 - Exam Vitals: Temp Pulse Resp BP Pulse Ox 97.8 F 76 15 125/64 97 01/09/18 07:20 01/09/18 07:20 01/09/18 07:20 01/09/18 07:20 01/09/18 07:20 Exam: Constitutional: In no distress, Sitting comfortably. Morbidly obese HEENT: PEARLA, No JVD, No lymphadenopathy CVS: S1, S2 normal, No MRG, RRR RS: Air entry equal, CTA ABdomen: Obese, Soft, Non-tender, Non-distended Extremities: Rt foot with visual deformity. Swelling on the sole with draining wound surrounded by erythema. Visible serous discharge. Non painful. Dressing in place Skin: Lymphedema on both legs. Stasis dermatitis on both legs Neuro: Cranial nerve gross normal, Motor and sensory exam grossly unremarkable, AOx3 Psych: Appropirate mood and affect, Fair insight. - Assessment and Plan (1) Osteomyelitis of right foot Current Visit: Yes Status: Acute Assessment and Plan: Podiatry and ID following. Scheduled for bone biopsy on monday. Continue meropenem IV q 8hrs. Will likely need 6 weeks of IV antibiotics (2) History of pulmonary embolism Current Visit: No Status: Acute Assessment and Plan: ON coumadin at home - Currently switched to heparin in case surgery is planned. (3) A-fib Current Visit: No Status: Chronic Assessment and Plan: Currently in sinus rhythm - c/w coreg - On warfarin at home. Will switch to Heparin in case surgery is planned. 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 Failure of outpatient treatment with ciprofloxacin - Patient received Vancomycin in ER with allergic reaction of itching, SOB and apprehension. continue on IV meropenem (8) CHF (congestive heart failure) Current Visit: Yes Status: Acute Assessment and Plan: - Has diastolic CHF as per last ECHO - Continue home coreg, statin, and Lasix with potassium - c/w lisinopril for HTN (9) H/O deep venous thrombosis Current Visit: Yes Status: Acute Assessment and Plan: On heparin drip - Time Spent with Patient Total time spent is greater than 50% in coordination of care (as documented) at patient's floor/unit and/or counseling patient: Internal Medicine: Result - Labs CBC & Chem 7: 01/06/18 04:44 01/06/18 04:44 - ABG Interpretation ABG results: PT/INR, D-dimer PT 18.2 Seconds (9.4-12.1) H 01/07/18 14:14 - VTE Documentation of Mechanical Device: Graduated compression elastic hosiery Consult Discharge Plan - Plan Referrals: Jaime Paula MD [Primary Care Provider] - (1) Osteomyelitis of right foot Qualifiers: Osteomyelitis type: other acute Qualified Code(s): M86.171 - Other acute osteomyelitis, right ankle and foot (3) A-fib Qualifiers: Atrial fibrillation type: chronic Qualified Code(s): I48.2 - Chronic atrial fibrillation (5) Charcot's joint of foot Qualifiers: Laterality: right Qualified Code(s): M14.671 - Charcot's joint, right ankle and foot (6) Type 2 diabetes mellitus Qualifiers: Diabetes mellitus shelter insulin use: without shelter use Diabetes mellitus complication status: with skin complications Diabetes mellitus complication detail: with foot ulcer Qualified Code(s): E11.621 - Type 2 diabetes mellitus with foot ulcer; L97.509 - Non-pressure chronic ulcer of other part of unspecified foot with unspecified severity (8) CHF (congestive heart failure) Qualifiers: Heart failure type: unspecified
--- NOTE | 2018-01-09 10:33 | Infectious Disease Progress No ---
Date of Encounter: 01/09/18 Time of Encounter: 09:30 - Assessment and Plan (1) Osteomyelitis of right foot Current Visit: Yes Status: Acute Location: Right cuboid bone. Causative organism: Unclear. Previous wound cultures have grown E. cloacae on multiple occasions. Likely secondary to chronic DFU to the plantar aspect of the right foot. MRI of the right foot showed new osteomyelitis of the cuboid bone. ESR 62, CRP 17. MRSA nasal swab negative. Blood cultures obtained 01/05/18 are NGTD x 2 sets. Podiatry consulted and following. Planning to take the patient to the OR for I & D and bone cultures. Wound care and activity per the podiatry team. The patient's reported drug allergies limit what medications we can use. Wound culture is pending. Continue meropenem 1 gram IV Q8H. Duration of treatment depends on the clinical picture, but likely a total of six weeks of IV antibiotics. Await cultures. De-escalate antibiotics if/when able. Monitor renal function and dose-adjust antibiotics. Consult VAT for IV line placement once final antibiotic regimen is determined. managed services consultant to assist with discharge planning. Additional lab and OPAT recommendations to follow pending culture and clinical outcomes. Qualifiers: Osteomyelitis type: other acute Qualified Code(s): M86.171 - Other acute osteomyelitis, right ankle and foot (2) Cellulitis of plantar aspect of foot Current Visit: Yes Status: Acute Location: Plantar aspect of the right foot. Causative organism: Unclear. Secondary to non-healing DFU. Clinically improved based on previous skin markings. Continue antibiotics as above. (3) [id number] kidney injury Current Visit: No Status: Acute Serum creatinine 1.67 on 01/06/18. Has not been checked since then. Check CBC and BMP now. Dose-adjust antibiotics. Avoid nephrotoxins. Strict I's and O's. Qualifiers: Acute renal failure type: unspecified Chronic kidney disease stage: stage 4 (severe) Qualified Code(s): N17.9 - Acute kidney failure, unspecified; N18.4 - Chronic kidney disease, stage 4 (severe) (4) Diabetic foot ulcer Current Visit: No Status: Acute Location: Plantar aspect of the right foot. Chronic, ongoing for two years per the patient. Likely secondary to Charcot foot deformity. Wound care per Podiatry. Qualifiers: Diabetic foot ulcer location: other Diabetes mellitus type: type 2 Laterality: right Non-pressure ulcer stage: unspecified non-pressure ulcer stage Qualified Code(s): E11.621 - Type 2 diabetes mellitus with foot ulcer; L97.519 - Non-pressure chronic ulcer of other part of right foot with unspecified severity (5) Allergy to multiple antibiotics Current Visit: No Status: Acute Had a pretty aggressive rash and breathing problem with vancomycin. He has taken vancomycin in the past. Unlikely "red man" syndrome. (6) Charcot's joint of foot Current Visit: Yes Status: Acute Qualifiers: Laterality: right Qualified Code(s): M14.671 - Charcot's joint, right ankle and foot (7) H/O deep venous thrombosis Current Visit: Yes Status: Acute (8) History of pulmonary embolism Current Visit: No Status: Acute (9) Morbid obesity with BMI of 50.0-59.9, adult Current Visit: No Status: Chronic (10) Type 2 diabetes mellitus Current Visit: No Status: Acute HgbA1C 7.9% in October. Recommend aggressive glucose monitoring and control to promote wound healing and prevent re-infection. Management per the primary team. Qualifiers: Diabetes mellitus terminal operator insulin use: without terminal operator use Diabetes mellitus complication status: with skin complications Diabetes mellitus complication detail: with foot ulcer Qualified Code(s): E11.621 - Type 2 diabetes mellitus with foot ulcer; L97.509 - Non-pressure chronic ulcer of other part of unspecified foot with unspecified severity (11) A-fib Current Visit: No Status: Chronic Qualifiers: Atrial fibrillation type: chronic Qualified Code(s): I48.2 - Chronic atrial fibrillation - Subjective Interval history: Patient seen and examined. No acute events noted overnight. Patient sitting up in bed. States overall he feels well. Denies fevers, chills, or rigors. Denies chest pain, shortness of breath, or cough. Denies nausea, vomiting, diarrhea. Reports 2 soft BMs in the last 24 hours. Denies abdominal pain, urinary complaints, or appetite changes. Denies oral thrush or new skin lesions. Infect Dis PN-Objective Data - Labs CBC & Chem 7: 01/10/18 05:23 01/10/18 05:23 Labs: Laboratory Results - last 24 hr 01/08/18 01/08/18 01/08/18 12:52 17:24 21:09 ESR Heparin Anti-Xa, Unfract POC Glucose 131 H 119 H 238 H C-Reactive Protein Nasal Screen MRSA (PCR) 01/08/18 01/09/18 01/09/18 22:00 01:31 01:31 ESR 62 H Heparin Anti-Xa, Unfract 0.05 L POC Glucose C-Reactive Protein Nasal Screen MRSA (PCR) Negative 01/09/18 01/09/18 01/09/18 01:31 07:24 08:21 ESR Heparin Anti-Xa, Unfract 1.31 H* POC Glucose 224 H C-Reactive Protein 17 H Nasal Screen MRSA (PCR) Cultures: Serology 01/08/18 Range/Units 22:00 Nasal Screen MRSA (PCR) Negative (Negative) Exam - Constitutional Vitals: Temp Pulse Resp BP Pulse Ox 97.8 F 76 15 125/64 97 01/09/18 07:20 01/09/18 07:20 01/09/18 07:20 01/09/18 07:20 01/09/18 07:20 General appearance: cooperative, morbidly obese, no acute distress - Head Head exam: Present: atraumatic, normal inspection, normocephalic - Eye Eye exam: Present: EOMI, normal appearance, PERRL Pupils: Present: normal accommodation - ENT ENT exam: Present: mucous membranes moist - Neck Neck exam: Present: normal inspection - Respiratory Respiratory exam: Present: CTAB. Absent: rales, respiratory distress, rhonchi, wheezes - Cardiovascular Cardiovascular exam: Present: RRR, +S1, +S2 - GI/Abdominal GI/Abdominal exam: Present: distended (obese), normal bowel sounds, soft. Absent: tenderness - Extremities Exam Extremities exam: Present: pedal edema (1+ right foot ). Absent: joint swelling , normal inspection (Charcot foot defomity noted to the right foot. ), tenderness Additional comments: Ulceration noted to the plantar aspect of the right foot with mesalt packing in place. Surrounding erythema receded from previous skin markings. No tenderness or fluctuance noted. Small amount of serosanguinous drainage noted to the old dressing. - Neurological Exam Neurological exam: Present: alert, oriented X3, no focal deficits - Psychiatric Psychiatric exam: Present: normal affect, normal mood - Skin Skin exam: Present: dry, intact, normal color, warm - VTE Documentation of Mechanical Device: Graduated compression elastic hosiery Consult Discharge Plan - Plan Referrals: Jaime Paula MD [Primary Care Provider] - - Attending Attestation I examined this patient and my medical decision-making was reviewed with Carolyn Izquierdo CNP. I agree with the documented findings, disposition and treatment plan as described except to the extent set forth below.
[2018-01-10 05:58] LABS: Basophils % 0.4 %; Eosinophils # 0.5 K/mcL (0.0-0.6); Eosinophils % 6.3 %; Hematocrit 27.6 % (37.5-50.1); Hemoglobin 8.5 g/dL (12.9-16.9); Immature Granulocytes % 0.5 % (0-4); Lymphocytes % 37.3 %; Mean Corpuscular HGB Conc 30.8 g/dL (31.6-35.5); Mean Corpuscular Hemoglobin 27.2 pg (28.0-33.3); Mean Corpuscular Volume 88.5 fL (83.0-100.0); Monocytes # 0.8 K/mcL (0.0-1.3); Monocytes % 9.3 %; Neutrophils # 3.8 K/mcL (1.6-8.9); Platelet Count 257 K/mcL (140-400); Red Blood Count 3.12 M/mcL (4.19-5.50); Red Cell Distribution Width 15.2 % (11.5-14.5); Segmented Neutrophils % 46.2 %
[2018-01-10 06:20] LABS: Calcium 8.9 mg/dL (8.6-10.3); Magnesium 1.8 mg/dL (1.6-2.6); Phosphorous 3.9 mg/dL (2.7-4.5)
--- NOTE | 2018-01-10 07:50 | Internal Med Progress Note ---
Hospitalist Progress Note - Encounter Date of Encounter: 01/10/18 Time of Encounter: 07:45 - Subjective Interval History: No acute events overnight - Exam Vitals: Temp Pulse Resp BP Pulse Ox 98.1 F 77 16 114/71 96 01/10/18 02:52 01/10/18 02:52 01/10/18 02:52 01/10/18 02:52 01/10/18 02:52 Exam: Constitutional: In no distress, Sitting comfortably. Morbidly obese HEENT: PEARLA, No JVD, No lymphadenopathy CVS: S1, S2 normal, No MRG, RRR RS: Air entry equal, CTA ABdomen: Obese, Soft, Non-tender, Non-distended Extremities: Rt foot with visual deformity. Swelling on the sole with draining wound surrounded by erythema. Visible serous discharge. Non painful. Dressing in place Skin: Lymphedema on both legs. Stasis dermatitis on both legs Neuro: Cranial nerve gross normal, Motor and sensory exam grossly unremarkable, AOx3 Psych: Appropirate mood and affect, Fair insight. - Assessment and Plan (1) Osteomyelitis of right foot Current Visit: Yes Status: Acute Assessment and Plan: Podiatry and ID following. Scheduled for bone biopsy today by podiatry. Continue meropenem IV q 8hrs. Will likely need 6 weeks of IV antibiotics (2) History of pulmonary embolism Current Visit: No Status: Acute Assessment and Plan: ON coumadin at home - Currently switched to heparin for bone biopsy (3) A-fib Current Visit: No Status: Chronic Assessment and Plan: Currently in sinus rhythm - c/w coreg - On warfarin at home. 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 Continue antibiotics (6) Type 2 diabetes mellitus Current Visit: No Status: Acute Assessment and Plan: Will continue on insulin but with decreased dose of home insulin and monitor for now (7) Cellulitis of plantar aspect of foot Current Visit: Yes Status: Acute Assessment and Plan: Non healing ulcer with associated cellulitis. Failure of outpatient treatment with ciprofloxacin - Patient received Vancomycin in ER with allergic reaction of itching, SOB and apprehension. continue on IV meropenem (8) CHF (congestive heart failure) Current Visit: Yes Status: Acute Assessment and Plan: - Has diastolic CHF as per last ECHO - Continue home coreg, statin, and Lasix with potassium - c/w lisinopril for HTN (9) H/O deep venous thrombosis Current Visit: Yes Status: Acute Assessment and Plan: On heparin drip (10) KELSY (acute kidney injury) Current Visit: No Status: Acute Assessment and Plan: Hold lasix and monitor creatinine DVT Prophylaxis: On heparin drip - Time Spent with Patient Total time spent is greater than 50% in coordination of care (as documented) at patient's floor/unit and/or counseling patient: Internal Medicine: Result - Labs CBC & Chem 7: 01/10/18 05:23 01/10/18 05:23 Labs: Short CBC 01/10/18 Range/Units 05:23 WBC 8.2 (4.3-11.1) K/mcL Hgb 8.5 L (12.9-16.9) g/dL Hct 27.6 L (37.5-50.1) % Plt Count 257 (140-400) K/mcL Neutrophils # 3.8 (1.6-8.9) K/mcL BMP 01/10/18 05:23 Sodium 140 Potassium 4.0 Chloride 103 Carbon Dioxide 28 BUN 19 Creatinine 1.52 H Glucose 151 H Calcium 8.9 - ABG Interpretation ABG results: PT/INR, D-dimer PT 18.2 Seconds (9.4-12.1) H 01/07/18 14:14 - VTE Documentation of Mechanical Device: Graduated compression elastic hosiery Consult Discharge Plan - Plan Referrals: Jaime Paula MD [Primary Care Provider] - (1) Osteomyelitis of right foot Qualifiers: Osteomyelitis type: other acute Qualified Code(s): M86.171 - Other acute osteomyelitis, right ankle and foot (3) A-fib Qualifiers: Atrial fibrillation type: chronic Qualified Code(s): I48.2 - Chronic atrial fibrillation (5) Charcot's joint of foot Qualifiers: Laterality: right Qualified Code(s): M14.671 - Charcot's joint, right ankle and foot (6) Type 2 diabetes mellitus Qualifiers: Diabetes mellitus [facility] insulin use: without ocean transportation intermediary use Diabetes mellitus complication status: with skin complications Diabetes mellitus complication detail: with foot ulcer Qualified Code(s): E11.621 - Type 2 diabetes mellitus with foot ulcer; L97.509 - Non-pressure chronic ulcer of other part of unspecified foot with unspecified severity (8) CHF (congestive heart failure) Qualifiers: Heart failure type: unspecified
[2018-01-10] MEDS: Heparin 25,000 UNIT/500 ML D5W 25,000 UNIT/500 ML BAG IVC SCH ×3 (08:08→20:20)
[2018-01-10] MEDS: Insulin LISPRO 300 UNITS/3 ML VIAL SQ SCH ×6 (08:11→17:20)
[2018-01-10] MEDS: Meropenem 1,000 MG in 0.9 % Sodium Chloride Mini Bag 100 ML IVPB SCH (08:14)
[2018-01-10] MEDS: Loratadine 10 MG TABLET PO SCH (08:14)
[2018-01-10] MEDS: Insulin DETEMIR 100 UNIT/ML X5UNITS SQ SCH ×2 (08:15→20:23)
[2018-01-10] MEDS: Lisinopril 20 MG TABLET PO SCH (08:15)
[2018-01-10] MEDS: Furosemide 40 MG TABLET PO SCH (08:18)
--- NOTE | 2018-01-10 14:22 | Infectious Disease Progress No ---
Date of Encounter: 01/10/18 Time of Encounter: 11:10 - Assessment and Plan (1) Osteomyelitis of right foot Current Visit: Yes Status: Acute Location: Right cuboid bone. Causative organism: MRSA per wound culture. Previous wound cultures have grown E. cloacae on multiple occasions. Likely secondary to chronic DFU to the plantar aspect of the right foot. MRI of the right foot showed new osteomyelitis of the cuboid bone. ESR 62, CRP 17. Blood cultures obtained 01/05/18 are negative x 2 sets. Podiatry consulted and following. Planning to take the patient to the OR for I & D and bone cultures. Wound care and activity per the podiatry team. The patient's reported drug allergies limit what medications we can use. Discontinue Meropenem. Start Levaquin 750mg IV daily. The patient has a documented allergy to Levaquin , but he has taken it previously in the past and tolerated the IV form without a problem. He did have nausea and vomiting to the PO form. Start Daptomycin 6mg/kg IV daily. The patient had a possible reaction to Vancomycin previously. Check baseline CK level. Discontinue Lipitor while on Dapto. Duration of treatment depends on the clinical picture, but likely a total of six weeks of IV antibiotics. Await cultures. De-escalate antibiotics if/when able. Monitor renal function and dose-adjust antibiotics. Consult VAT for IV line placement once final antibiotic regimen is determined. clinical services professional to assist with discharge planning. Additional lab and OPAT recommendations to follow pending culture and clinical outcomes. MRSA precautions per protocol. Qualifiers: Osteomyelitis type: other acute Qualified Code(s): M86.171 - Other acute osteomyelitis, right ankle and foot (2) Cellulitis of plantar aspect of foot Current Visit: Yes Status: Acute Location: Plantar aspect of the right foot. Causative organism: Unclear. Secondary to non-healing DFU. Clinically improved based on previous skin markings. Continue antibiotics as above. (3) [id number] kidney injury Current Visit: No Status: Acute Improved. Continue to trend. Dose-adjust antibiotics. Avoid nephrotoxins. Strict I's and O's. Qualifiers: Acute renal failure type: unspecified Chronic kidney disease stage: stage 4 (severe) Qualified Code(s): N17.9 - Acute kidney failure, unspecified; N18.4 - Chronic kidney disease, stage 4 (severe) (4) Diabetic foot ulcer Current Visit: No Status: Acute Location: Plantar aspect of the right foot. Chronic, ongoing for two years per the patient. Likely secondary to Charcot foot deformity. Wound care per Podiatry. Qualifiers: Diabetic foot ulcer location: other Diabetes mellitus type: type 2 Laterality: right Non-pressure ulcer stage: unspecified non-pressure ulcer stage Qualified Code(s): E11.621 - Type 2 diabetes mellitus with foot ulcer; L97.519 - Non-pressure chronic ulcer of other part of right foot with unspecified severity (5) Allergy to multiple antibiotics Current Visit: No Status: Acute Had a pretty aggressive rash and breathing problem with vancomycin. He has taken vancomycin in the past. Unlikely "red man" syndrome. (6) Charcot's joint of foot Current Visit: Yes Status: Acute Qualifiers: Laterality: right Qualified Code(s): M14.671 - Charcot's joint, right ankle and foot (7) H/O deep venous thrombosis Current Visit: Yes Status: Acute (8) History of pulmonary embolism Current Visit: No Status: Acute (9) Morbid obesity with BMI of 50.0-59.9, adult Current Visit: No Status: Chronic (10) Type 2 diabetes mellitus Current Visit: No Status: Acute HgbA1C 7.9% in October. Recommend aggressive glucose monitoring and control to promote wound healing and prevent re-infection. Management per the primary team. Qualifiers: Diabetes mellitus predatory animal exterminator insulin use: without predatory animal exterminator use Diabetes mellitus complication status: with skin complications Diabetes mellitus complication detail: with foot ulcer Qualified Code(s): E11.621 - Type 2 diabetes mellitus with foot ulcer; L97.509 - Non-pressure chronic ulcer of other part of unspecified foot with unspecified severity (11) A-fib Current Visit: No Status: Chronic Qualifiers: Atrial fibrillation type: chronic Qualified Code(s): I48.2 - Chronic atrial fibrillation - Subjective Interval history: Patient seen and examined. No acute events noted overnight. Patient sitting up in bed. States overall he feels well. Denies fevers, chills, or rigors. Denies chest pain, shortness of breath, or cough. Denies nausea, vomiting, diarrhea. Reports 2 soft BMs in the last 24 hours. Denies abdominal pain, urinary complaints, or appetite changes. Denies oral thrush or new skin lesions. Infect Dis PN-Objective Data - Labs CBC & Chem 7: 01/10/18 05:23 01/10/18 05:23 Labs: Laboratory Results - last 24 hr 01/09/18 01/09/18 01/09/18 14:58 16:09 21:21 WBC RBC Hgb Hct MCV MCH MCHC RDW Plt Count MPV Immature Gran % Seg Neutrophils % Lymphocytes % Monocytes % Eosinophils % Basophils % Neutrophils # Lymphocytes # Monocytes # Eosinophils # Basophils # Heparin Anti-Xa, Unfract 0.60 Sodium Potassium Chloride Carbon Dioxide BUN Creatinine Est GFR ( Amer) Est GFR (Non-Af Amer) BUN/Creatinine Ratio Glucose POC Glucose 212 H 198 H Calculated Osmolality Calcium Phosphorus Magnesium 01/09/18 01/10/18 01/10/18 21:37 05:08 05:23 WBC 8.2 RBC 3.12 L Hgb 8.5 L Hct 27.6 L MCV 88.5 MCH 27.2 L MCHC 30.8 L RDW 15.2 H Plt Count 257 MPV 11.0 Immature Gran % 0.5 Seg Neutrophils % 46.2 Lymphocytes % 37.3 Monocytes % 9.3 Eosinophils % 6.3 Basophils % 0.4 Neutrophils # 3.8 Lymphocytes # 3.0 Monocytes # 0.8 Eosinophils # 0.5 Basophils # 0.0 Heparin Anti-Xa, Unfract 0.61 Sodium Potassium Chloride Carbon Dioxide BUN Creatinine Est GFR ( Amer) Est GFR (Non-Af Amer) BUN/Creatinine Ratio Glucose POC Glucose 148 H Calculated Osmolality Calcium Phosphorus Magnesium 01/10/18 01/10/18 01/10/18 05:23 08:00 11:54 WBC RBC Hgb Hct MCV MCH MCHC RDW Plt Count MPV Immature Gran % Seg Neutrophils % Lymphocytes % Monocytes % Eosinophils % Basophils % Neutrophils # Lymphocytes # Monocytes # Eosinophils # Basophils # Heparin Anti-Xa, Unfract Sodium 140 Potassium 4.0 Chloride 103 Carbon Dioxide 28 BUN 19 Creatinine 1.52 H Est GFR ( Amer) 59 L Est GFR (Non-Af Amer) 49 L BUN/Creatinine Ratio 13 Glucose 151 H POC Glucose 157 H 179 H Calculated Osmolality 295 Calcium 8.9 Phosphorus 3.9 Magnesium 1.8 Cultures: Cultures 01/08/18 12:50 Wound Culture - Final Right Foot Methicillin Resistant S.aureus Serology 01/08/18 Range/Units 22:00 Nasal Screen MRSA (PCR) Negative (Negative) Exam - Constitutional Vitals: Temp Pulse Resp BP Pulse Ox 97.7 F 79 15 126/69 95 01/10/18 11:59 01/10/18 11:59 01/10/18 11:59 01/10/18 11:59 01/10/18 11:59 General appearance: cooperative, morbidly obese, no acute distress - Head Head exam: Present: atraumatic, normal inspection, normocephalic - Eye Eye exam: Present: EOMI, normal appearance, PERRL Pupils: Present: normal accommodation - ENT ENT exam: Present: mucous membranes moist - Neck Neck exam: Present: normal inspection - Respiratory Respiratory exam: Present: CTAB. Absent: rales, respiratory distress, rhonchi, wheezes - Cardiovascular Cardiovascular exam: Present: irregular rhythm, +S1, +S2. Absent: tachycardia - GI/Abdominal GI/Abdominal exam: Present: distended (obese), normal bowel sounds, soft. Absent: tenderness - Extremities Exam Extremities exam: Present: pedal edema (1+ BLE). Absent: normal inspection ( Venous stasis dermatitis noted to the BLE. ), tenderness Additional comments: Right foot dressing C/D/I. - Neurological Exam Neurological exam: Present: alert, oriented X3, no focal deficits - Psychiatric Psychiatric exam: Present: normal affect, normal mood - Skin Skin exam: Present: dry, intact, normal color, warm - VTE Documentation of Mechanical Device: Graduated compression elastic hosiery Consult Discharge Plan - Plan Referrals: Jaime Paula MD [Primary Care Provider] - - Attending Attestation I examined this patient and my medical decision-making was reviewed with the Resident Physician. I agree with the documented findings, disposition and treatment plan as described except to the extent set forth below.
[2018-01-10] MEDS ORDERED: DAPTOMYCIN IVPB SCH ×2 (15:00→15:45)
[2018-01-10] MEDS ORDERED: SODIUM CHLORIDE 0.9% IVPB SCH ×2 (15:00→15:45)
[2018-01-10] MEDS ORDERED: DAPTOmycin 1,000 MG in 0.9 % Sodium Chloride 100 ML IVPB SCH (15:30)
--- NOTE | 2018-01-10 20:12 | Anesthesia Evaluation PreOp ---
Date of Encounter: 01/10/18 Time of Encounter: 19:15 - Past History Planned Operation: Rt Foot Bone Bx Cardiac History: CHF, HTN, Hyperlipidemia, Arrhythmia (Hx Afib), Other (DVT, Anemia of chronic disease) Pulmonary History: Denies Any Significant HX RECESSING MACHINE OPERATOR History: Denies Any Significant HX Other Medical History: Renal (CKD), Diabetes Type II, Other (Morbid Obesity) Anesthesia History: No Prior Anesthetic Complications Alcohol Use: none Drug use: none Medications and Allergies Acetaminophen [Tylenol] 500 mg PO HS 12/02/16 [History] Carvedilol Phosphate [Coreg Cr] 80 mg PO DAILY 12/02/16 [History] Fluticasone/Salmeterol [Advair 250-50 Diskus] 1 each IH BID PRN 12/02/16 [ History] Furosemide [Lasix] 40 mg PO BID 12/02/16 [History] Insulin Glargine,Hum.rec.anlog [Lantus Solostar] 46 units SQ BID 12/02/16 [ History] Metformin HCl [Glucophage] 1,000 mg PO BID 12/02/16 [History] Pentoxifylline 400 mg PO BID 12/02/16 [History] Potassium Chloride 20 meq PO DAILY 12/02/16 [History] Pramipexole [Mirapex] 0.25 mg PO BID 12/02/16 [History] Loratadine [Claritin] 10 mg PO DAILY tablet 11/17/17 [Rx] Albuterol Sulfate [Ventolin Hfa] 2 puff IH Q4H PRN 01/05/18 [History] Atorvastatin [Lipitor] 40 mg PO HS 01/05/18 [History] Insulin LISPRO [HumaLOG] 10 units SQ TIDWM 01/05/18 [History] Lansoprazole [Prevacid] 30 mg PO DAILY 01/05/18 [History] Lisinopril [Zestril] 20 mg PO DAILY 01/05/18 [History] Warfarin [Coumadin] 4 mg PO TU 01/05/18 [History] Warfarin [Coumadin] 8 mg PO SUMOWETHFRSA 01/05/18 [History] 3 Allergy/AdvReac Type Severity Reaction Status Date / Time vancomycin Allergy Intermediate Itching Verified 01/05/18 19:34 peanut Allergy Anaphylaxis Verified 03/25/17 00:00 cephalexin [From Keflex] AdvReac Rash Verified 03/25/17 00:00 levofloxacin AdvReac Rash Verified 03/25/17 00:00 Sulfa (Sulfonamide AdvReac Rash Verified 03/25/17 00:00 Antibiotics) - Meds/Allergy Pre-op Review Medications Reviewed: Yes Allergies Reviewed: Yes Beta Blockers on Current Med List: Yes (on Coreg) Anesthesia Results - Labs 01/10/18 05:23 01/10/18 05:23 Laboratory Tests 01/10/18 01/10/18 05:23 05:23 Hgb 8.5 L Hct 27.6 L Plt Count 257 Sodium 140 Potassium 4.0 BUN 19 Creatinine 1.52 H - Imaging EKG: report reviewed (Sinus Tach) Additional studies: ECHO EF 60% Anesthesia Exam O2 Sat Weight 174.2 kg O2 Sat by Pulse Oximetry 95 O2 Sat by Pulse Oximetry 95 O2 Sat by Pulse Oximetry 96 Vital Signs Temp Pulse Resp BP Pulse Ox 98.3 F 84 16 171/76 94 01/05/18 13:49 01/05/18 13:49 01/05/18 13:49 01/05/18 13:49 01/05/18 13:49 Height: 6'2 Weight: 384 lbs NPO (# of Hours): MN Pain Scale: 0 - HEENT Pupil (Motor): Pupils equal, EOMI Mallampati: III Oral Opening: Less than or equal to 3 - RECESSING MACHINE OPERATOR LOC: Oriented RECESSING MACHINE OPERATOR Motor: Normal RUE, Normal LUE, Normal RLE, Normal LLE, Normal Face RECESSING MACHINE OPERATOR Sensory: Normal: RUE, LUE, RLE, LLE, Face - Cardiac Rhythm: Regular Murmur: None JVD: No Carotid Bruit: No - Pulmonary Breath Sounds: bilateral Clear Respiratory Effort: Symmetrical Anesthesia Assess/Plan ASA Score: 4 (HTN Hx AFib DM MO CKD) Modified [place] Scale for Level of Consciousness: Cooperative, oriented, and tranquil Anesthetic Plan: MAC Monitoring Plan: Standard Monitors Recovery Plan: Other (Discussed MAC, possible GA, agrees to proceed)
[2018-01-11 05:02] LABS: Hematocrit 31.2 % (37.5-50.1); Hemoglobin 9.5 g/dL (12.9-16.9); Immature Granulocytes % 0.7 % (0-4); Lymphocytes % 36.9 %; Mean Corpuscular HGB Conc 30.4 g/dL (31.6-35.5); Mean Corpuscular Hemoglobin 27.4 pg (28.0-33.3); Mean Corpuscular Volume 89.9 fL (83.0-100.0); Platelet Count 284 K/mcL (140-400); Red Blood Count 3.47 M/mcL (4.19-5.50); Red Cell Distribution Width 15.1 % (11.5-14.5); Segmented Neutrophils % 47.2 %
[2018-01-11 05:03] LABS: Basophils # 0.1 K/mcL (0.0-0.2); Basophils % 0.5 %; Eosinophils # 0.7 K/mcL (0.0-0.6); Eosinophils % 6.7 %; Lymphocytes # 3.8 K/mcL (0.6-4.6); Monocytes # 0.8 K/mcL (0.0-1.3); Neutrophils # 4.9 K/mcL (1.6-8.9)
[2018-01-11 05:20] LABS: BUN/Creatinine Ratio 12 (6-26); Blood Urea Nitrogen 17 mg/dL (6-20); Calcium 9.2 mg/dL (8.6-10.3); Carbon Dioxide 29 mEq/L (23-29); Chloride 104 mEq/L (98-107); Glucose 181 mg/dL (70-105); Osmolality,Calculated 294 (280-300); Phosphorous 4.3 mg/dL (2.7-4.5); Potassium 4.2 mEq/L (3.5-5.1); Sodium 139 mEq/L (136-145); eGFR For Non-African Americans 53 (> 60)
[2018-01-11] MEDS: Insulin LISPRO 300 UNITS/3 ML VIAL SQ SCH ×5 (07:20→16:48)
[2018-01-11] MEDS: Levofloxacin 750 MG/150 ML 750 MG/150 ML BAG IVPB SCH (07:24)
[2018-01-11] MEDS: Loratadine 10 MG TABLET PO SCH (07:29)
[2018-01-11] MEDS: Lisinopril 20 MG TABLET PO SCH (07:30)
[2018-01-11] MEDS: Heparin 25,000 UNIT/500 ML D5W 25,000 UNIT/500 ML BAG IVC SCH ×2 (08:08→14:30)
[2018-01-11] MEDS ORDERED: Insulin DETEMIR 100 UNIT/ML X5UNITS SQ ONE (08:21)
[2018-01-11] MEDS ORDERED: D5% in 0.45% NACL 1,000 ML IVC SCH (08:30)
--- NOTE | 2018-01-11 10:49 | Internal Med Progress Note ---
Hospitalist Progress Note - Encounter Date of Encounter: 01/11/18 Time of Encounter: 10:00 - Subjective Interval History: No acute events overnight - Exam Vitals: Temp Pulse Resp BP Pulse Ox 97.6 F 74 14 130/71 96 01/11/18 06:33 01/11/18 06:33 01/11/18 06:33 01/11/18 06:33 01/11/18 06:33 Exam: Constitutional: In no distress, Sitting comfortably. Morbidly obese HEENT: PEARLA, No JVD, No lymphadenopathy CVS: S1, S2 normal, No MRG, RRR RS: Air entry equal, CTA ABdomen: Obese, Soft, Non-tender, Non-distended Extremities: Rt foot with visual deformity. Swelling on the sole with draining wound surrounded by erythema. Visible serous discharge. Non painful. Dressing in place Skin: Lymphedema on both legs. Stasis dermatitis on both legs Neuro: Cranial nerve gross normal, Motor and sensory exam grossly unremarkable, AOx3 Psych: Appropirate mood and affect, Fair insight. - Assessment and Plan (1) Osteomyelitis of right foot Current Visit: Yes Status: Acute Assessment and Plan: 01/11 Podiatry and ID following. Scheduled for bone biopsy today by podiatry. Continue daptomycin and levaquin per ID recs. Will likely need 6 weeks of IV antibiotics. Wound cultures growing MRSA and patient is allergic to vancomycin (2) History of pulmonary embolism Current Visit: No Status: Acute Assessment and Plan: ON coumadin at home - Currently switched to heparin for bone biopsy. Will hold heparin drip for procedure (3) A-fib Current Visit: No Status: Chronic Assessment and Plan: Currently in sinus rhythm - c/w coreg - On warfarin at home. 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 Continue antibiotics (6) Type 2 diabetes mellitus Current Visit: No Status: Acute Assessment and Plan: Will continue on insulin but with decreased dose of home insulin and monitor for now (7) Cellulitis of plantar aspect of foot Current Visit: Yes Status: Acute Assessment and Plan: Non healing ulcer with associated cellulitis. Failure of outpatient treatment with ciprofloxacin - Patient received Vancomycin in ER with allergic reaction of itching, SOB and apprehension. continue on IV meropenem (8) CHF (congestive heart failure) Current Visit: Yes Status: Acute Assessment and Plan: - Has diastolic CHF as per last ECHO - Continue home coreg, statin, and Lasix with potassium - c/w lisinopril for HTN (9) H/O deep venous thrombosis Current Visit: Yes Status: Acute Assessment and Plan: On heparin drip (10) KELSY (acute kidney injury) Current Visit: No Status: Acute Assessment and Plan: Hold lasix and monitor creatinine DVT Prophylaxis: On heparin drip - Time Spent with Patient Total time spent is greater than 50% in coordination of care (as documented) at patient's floor/unit and/or counseling patient: Internal Medicine: Result - Labs CBC & Chem 7: 01/11/18 04:34 01/11/18 04:34 Labs: Short CBC 01/11/18 Range/Units 04:34 WBC 10.3 (4.3-11.1) K/mcL Hgb 9.5 L (12.9-16.9) g/dL Hct 31.2 L (37.5-50.1) % Plt Count 284 (140-400) K/mcL Neutrophils # 4.9 (1.6-8.9) K/mcL BMP 01/10/18 01/11/18 05:23 04:34 Sodium 140 139 Potassium 4.0 4.2 Chloride 103 104 Carbon Dioxide 28 29 BUN 19 17 Creatinine 1.52 H 1.40 H Glucose 151 H 181 H Calcium 8.9 9.2 - ABG Interpretation ABG results: PT/INR, D-dimer PT 18.2 Seconds (9.4-12.1) H 01/07/18 14:14 - VTE Documentation of Mechanical Device: Graduated compression elastic hosiery Consult Discharge Plan - Plan Referrals: Jaime Paula MD [Primary Care Provider] - (1) Osteomyelitis of right foot Qualifiers: Osteomyelitis type: other acute Qualified Code(s): M86.171 - Other acute osteomyelitis, right ankle and foot (3) A-fib Qualifiers: Atrial fibrillation type: chronic Qualified Code(s): I48.2 - Chronic atrial fibrillation (5) Charcot's joint of foot Qualifiers: Laterality: right Qualified Code(s): M14.671 - Charcot's joint, right ankle and foot (6) Type 2 diabetes mellitus Qualifiers: Diabetes mellitus terminal superintendent insulin use: without fpc use Diabetes mellitus complication status: with skin complications Diabetes mellitus complication detail: with foot ulcer Qualified Code(s): E11.621 - Type 2 diabetes mellitus with foot ulcer; L97.509 - Non-pressure chronic ulcer of other part of unspecified foot with unspecified severity (8) CHF (congestive heart failure) Qualifiers: Heart failure type: unspecified
--- NOTE | 2018-01-11 13:57 | Infectious Disease Progress No ---
Date of Encounter: 01/11/18 Time of Encounter: 09:40 - Assessment and Plan (1) Osteomyelitis of right foot Current Visit: Yes Status: Acute Location: Right cuboid bone. Causative organism: MRSA per wound culture. Previous wound cultures have grown E. cloacae on multiple occasions. Likely secondary to chronic DFU to the plantar aspect of the right foot. MRI of the right foot showed new osteomyelitis of the cuboid bone. ESR 62, CRP 17. Blood cultures obtained 01/05/18 are negative x 2 sets. Podiatry consulted and following. Planning to take the patient to the OR for I & D and bone cultures. Wound care and activity per the podiatry team. The patient's reported drug allergies limit what medications we can use. Continue Levaquin 750mg IV daily. The patient has a documented allergy to Levaquin, but he has taken it previously in the past and tolerated the IV form without a problem. He did have nausea and vomiting to the PO form. Continue Daptomycin 6mg/kg IV daily. The patient had a possible reaction to Vancomycin previously. Check baseline CK level. --> 36 Discontinue Lipitor while on Dapto. Duration of treatment depends on the clinical picture, but likely a total of six weeks of IV antibiotics. Await cultures. De-escalate antibiotics if/when able. Monitor renal function and dose-adjust antibiotics. Consult VAT for IV line placement once final antibiotic regimen is determined. director of services to assist with discharge planning. Additional lab and OPAT recommendations to follow pending culture and clinical outcomes. MRSA precautions per protocol. Qualifiers: Osteomyelitis type: other acute Qualified Code(s): M86.171 - Other acute osteomyelitis, right ankle and foot (2) Cellulitis of plantar aspect of foot Current Visit: Yes Status: Acute Location: Plantar aspect of the right foot. Causative organism: Unclear. Secondary to non-healing DFU. Clinically improved based on previous skin markings. Continue antibiotics as above. (3) Anqvm-hl-xkkajzh kidney injury Current Visit: No Status: Acute Improved. Continue to trend. Dose-adjust antibiotics. Avoid nephrotoxins. Strict I's and O's. Qualifiers: Acute renal failure type: unspecified Chronic kidney disease stage: stage 4 (severe) Qualified Code(s): N17.9 - Acute kidney failure, unspecified; N18.4 - Chronic kidney disease, stage 4 (severe) (4) Diabetic foot ulcer Current Visit: No Status: Acute Location: Plantar aspect of the right foot. Chronic, ongoing for two years per the patient. Likely secondary to Charcot foot deformity. Wound care per Podiatry. Qualifiers: Diabetic foot ulcer location: other Diabetes mellitus type: type 2 Laterality: right Non-pressure ulcer stage: unspecified non-pressure ulcer stage Qualified Code(s): E11.621 - Type 2 diabetes mellitus with foot ulcer; L97.519 - Non-pressure chronic ulcer of other part of right foot with unspecified severity (5) Allergy to multiple antibiotics Current Visit: No Status: Acute Had a pretty aggressive rash and breathing problem with vancomycin. He has taken vancomycin in the past. Unlikely "red man" syndrome. (6) Charcot's joint of foot Current Visit: Yes Status: Acute Qualifiers: Laterality: right Qualified Code(s): M14.671 - Charcot's joint, right ankle and foot (7) H/O deep venous thrombosis Current Visit: Yes Status: Acute (8) History of pulmonary embolism Current Visit: No Status: Acute (9) Morbid obesity with BMI of 50.0-59.9, adult Current Visit: No Status: Chronic (10) Type 2 diabetes mellitus Current Visit: No Status: Acute HgbA1C 7.9% in October. Recommend aggressive glucose monitoring and control to promote wound healing and prevent re-infection. Management per the primary team. Qualifiers: Diabetes mellitus terminal supervisor insulin use: without terminal supervisor use Diabetes mellitus complication status: with skin complications Diabetes mellitus complication detail: with foot ulcer Qualified Code(s): E11.621 - Type 2 diabetes mellitus with foot ulcer; L97.509 - Non-pressure chronic ulcer of other part of unspecified foot with unspecified severity (11) A-fib Current Visit: No Status: Chronic Qualifiers: Atrial fibrillation type: chronic Qualified Code(s): I48.2 - Chronic atrial fibrillation - Subjective Interval history: Patient seen and examined. No acute events noted overnight. Patient sitting up in bed. States overall he feels well. Denies fevers, chills, or rigors. Denies chest pain, shortness of breath, or cough. Denies nausea, vomiting, diarrhea. Reports spft BM this morning. Denies abdominal pain, urinary complaints, or appetite changes. Denies oral thrush or new skin lesions. Scheduled for surgery later today. Infect Dis PN-Objective Data - Labs CBC & Chem 7: 01/11/18 04:34 01/11/18 04:34 Labs: Laboratory Results - last 24 hr 01/10/18 01/10/18 01/10/18 05:23 16:49 20:24 WBC RBC Hgb Hct MCV MCH MCHC RDW Plt Count MPV Immature Gran % Seg Neutrophils % Lymphocytes % Monocytes % Eosinophils % Basophils % Neutrophils # Lymphocytes # Monocytes # Eosinophils # Basophils # Heparin Anti-Xa, Unfract Sodium 140 Potassium 4.0 Chloride 103 Carbon Dioxide 28 BUN 19 Creatinine 1.52 H Est GFR ( Amer) 59 L Est GFR (Non-Af Amer) 49 L BUN/Creatinine Ratio 13 Glucose 151 H POC Glucose 198 H 208 H Calculated Osmolality 295 Calcium 8.9 Phosphorus 3.9 Magnesium 1.8 Creatine Kinase 36 01/10/18 01/11/18 01/11/18 21:05 04:34 04:34 WBC 10.3 RBC 3.47 L Hgb 9.5 L Hct 31.2 L MCV 89.9 MCH 27.4 L MCHC 30.4 L RDW 15.1 H Plt Count 284 MPV 11.0 Immature Gran % 0.7 Seg Neutrophils % 47.2 Lymphocytes % 36.9 Monocytes % 8.0 Eosinophils % 6.7 Basophils % 0.5 Neutrophils # 4.9 Lymphocytes # 3.8 Monocytes # 0.8 Eosinophils # 0.7 H Basophils # 0.1 Heparin Anti-Xa, Unfract 0.58 Sodium 139 Potassium 4.2 Chloride 104 Carbon Dioxide 29 BUN 17 Creatinine 1.40 H Est GFR ( Amer) > 60 Est GFR (Non-Af Amer) 53 L BUN/Creatinine Ratio 12 Glucose 181 H POC Glucose Calculated Osmolality 294 Calcium 9.2 Phosphorus 4.3 Magnesium 2.0 Creatine Kinase Cultures: Cultures 01/08/18 12:50 Wound Culture - Final Right Foot Methicillin Resistant S.aureus Serology 01/08/18 Range/Units 22:00 Nasal Screen MRSA (PCR) Negative (Negative) Exam - Constitutional Vitals: Temp Pulse Resp BP Pulse Ox 97.8 F 70 14 132/51 94 01/11/18 11:33 01/11/18 11:33 01/11/18 11:33 01/11/18 11:33 01/11/18 11:33 General appearance: cooperative, morbidly obese, no acute distress - Head Head exam: Present: atraumatic, normal inspection, normocephalic - Eye Eye exam: Present: EOMI, normal appearance, PERRL Pupils: Present: normal accommodation - ENT ENT exam: Present: mucous membranes moist - Neck Neck exam: Present: normal inspection - Respiratory Respiratory exam: Present: CTAB. Absent: rales, respiratory distress, rhonchi, wheezes - Cardiovascular Cardiovascular exam: Present: RRR, +S1, +S2 - GI/Abdominal GI/Abdominal exam: Present: distended (obese), soft, tenderness. Absent: normal bowel sounds - Extremities Exam Extremities exam: Present: pedal edema (1+ BLE). Absent: joint swelling, normal inspection (Venous stasis dermatitis noted to the BLE.), tenderness Additional comments: Right foot dressing C/D/I. - Neurological Exam Neurological exam: Present: alert, oriented X3, no focal deficits - Psychiatric Psychiatric exam: Present: normal affect, normal mood - Skin Skin exam: Present: dry, intact, normal color, warm - VTE Documentation of Mechanical Device: Graduated compression elastic hosiery Consult Discharge Plan - Plan Referrals: Jaime Paula MD [Primary Care Provider] - - Attending Attestation I examined this patient and my medical decision-making was reviewed with the Resident Physician. I agree with the documented findings, disposition and treatment plan as described except to the extent set forth below.
[2018-01-11] MEDS ORDERED: DAPTOmycin 1,000 MG in 0.9 % Sodium Chloride 100 ML IVPB SCH (14:00)
[2018-01-11] MEDS: Insulin DETEMIR 100 UNIT/ML X5UNITS SQ SCH (21:00)
[2018-01-12] MEDS: Heparin 25,000 UNIT/500 ML D5W 25,000 UNIT/500 ML BAG IVC SCH ×2 (02:38→21:11)
[2018-01-12 06:20] LABS: Basophils % 0.4 %; Eosinophils # 0.9 K/mcL (0.0-0.6); Eosinophils % 7.7 %; Hematocrit 29.2 % (37.5-50.1); Hemoglobin 8.9 g/dL (12.9-16.9); Immature Granulocytes % 0.5 % (0-4); Lymphocytes # 3.2 K/mcL (0.6-4.6); Lymphocytes % 28.6 %; Mean Corpuscular HGB Conc 30.5 g/dL (31.6-35.5); Mean Corpuscular Hemoglobin 27.5 pg (28.0-33.3); Mean Corpuscular Volume 90.1 fL (83.0-100.0); Mean Platelet Volume 11.1 fL (9.4-12.4); Monocytes # 0.9 K/mcL (0.0-1.3); Monocytes % 7.9 %; Neutrophils # 6.2 K/mcL (1.6-8.9); Platelet Count 257 K/mcL (140-400); Red Blood Count 3.24 M/mcL (4.19-5.50); Red Cell Distribution Width 15.2 % (11.5-14.5); Segmented Neutrophils % 54.9 %
[2018-01-12 06:38] LABS: BUN/Creatinine Ratio 11 (6-26); Blood Urea Nitrogen 15 mg/dL (6-20); Calcium 9.2 mg/dL (8.6-10.3); Carbon Dioxide 28 mEq/L (23-29); Chloride 105 mEq/L (98-107); Glucose 190 mg/dL (70-105); Magnesium 1.9 mg/dL (1.6-2.6); Osmolality,Calculated 294 (280-300); Phosphorous 3.1 mg/dL (2.7-4.5); Potassium 4.5 mEq/L (3.5-5.1); Sodium 139 mEq/L (136-145); eGFR For Non-African Americans 58 (> 60)
[2018-01-12] MEDS: Insulin LISPRO 300 UNITS/3 ML VIAL SQ SCH ×4 (09:29→18:33)
[2018-01-12] MEDS: Lisinopril 20 MG TABLET PO SCH (09:30)
[2018-01-12] MEDS: Levofloxacin 750 MG/150 ML 750 MG/150 ML BAG IVPB SCH (09:31)
[2018-01-12] MEDS: Loratadine 10 MG TABLET PO SCH (09:31)
[2018-01-12] MEDS: Insulin DETEMIR 100 UNIT/ML X5UNITS SQ SCH ×2 (09:35→21:26)
--- NOTE | 2018-01-12 10:19 | Infectious Disease Progress No ---
Date of Encounter: 01/12/18 Time of Encounter: 09:15 - Assessment and Plan (1) Osteomyelitis of right foot Current Visit: Yes Status: Acute Location: Right cuboid bone. Causative organism: MRSA per wound culture. Previous wound cultures have grown E. cloacae on multiple occasions. Likely secondary to chronic DFU to the plantar aspect of the right foot. MRI of the right foot showed new osteomyelitis of the cuboid bone. ESR 62, CRP 17. Blood cultures obtained 01/05/18 are negative x 2 sets. Podiatry consulted and following. Planning to take the patient to the OR for I & D and bone cultures. Wound care and activity per the podiatry team. The patient's reported drug allergies limit what medications we can use. Continue Levaquin 750mg IV daily. The patient has a documented allergy to Levaquin, but he has taken it previously in the past and tolerated the IV form without a problem. He did have nausea and vomiting to the PO form. Continue Daptomycin 6mg/kg IV daily. The patient had a possible reaction to Vancomycin previously. Check baseline CK level. --> 36 Discontinue Lipitor while on Dapto. Duration of treatment depends on the clinical picture, but likely a total of six weeks of IV antibiotics. Await cultures. De-escalate antibiotics if/when able. Monitor renal function and dose-adjust antibiotics. Consult VAT for IV line placement once final antibiotic regimen is determined. director outpatient services to assist with discharge planning. Additional lab and OPAT recommendations to follow pending culture and clinical outcomes. MRSA precautions per protocol. Qualifiers: Osteomyelitis type: other acute Qualified Code(s): M86.171 - Other acute osteomyelitis, right ankle and foot (2) Cellulitis of plantar aspect of foot Current Visit: Yes Status: Acute Location: Plantar aspect of the right foot. Causative organism: Unclear. Secondary to non-healing DFU. Clinically improved based on previous skin markings. Continue antibiotics as above. (3) Aqxma-ty-exfhshf kidney injury Current Visit: No Status: Acute Improved. Continue to trend. Dose-adjust antibiotics. Avoid nephrotoxins. Strict I's and O's. Qualifiers: Acute renal failure type: unspecified Chronic kidney disease stage: stage 4 (severe) Qualified Code(s): N17.9 - Acute kidney failure, unspecified; N18.4 - Chronic kidney disease, stage 4 (severe) (4) Diabetic foot ulcer Current Visit: No Status: Acute Location: Plantar aspect of the right foot. Chronic, ongoing for two years per the patient. Likely secondary to Charcot foot deformity. Wound care per Podiatry. Qualifiers: Diabetic foot ulcer location: other Diabetes mellitus type: type 2 Laterality: right Non-pressure ulcer stage: unspecified non-pressure ulcer stage Qualified Code(s): E11.621 - Type 2 diabetes mellitus with foot ulcer; L97.519 - Non-pressure chronic ulcer of other part of right foot with unspecified severity (5) Allergy to multiple antibiotics Current Visit: No Status: Acute Had a pretty aggressive rash and breathing problem with vancomycin. He has taken vancomycin in the past. Unlikely "red man" syndrome. (6) Charcot's joint of foot Current Visit: Yes Status: Acute Qualifiers: Laterality: right Qualified Code(s): M14.671 - Charcot's joint, right ankle and foot (7) H/O deep venous thrombosis Current Visit: Yes Status: Acute (8) History of pulmonary embolism Current Visit: No Status: Acute (9) Morbid obesity with BMI of 50.0-59.9, adult Current Visit: No Status: Chronic (10) Type 2 diabetes mellitus Current Visit: No Status: Acute HgbA1C 7.9% in October. Recommend aggressive glucose monitoring and control to promote wound healing and prevent re-infection. Management per the primary team. Qualifiers: Diabetes mellitus trimmer buffing wheel insulin use: without trimmer buffing wheel use Diabetes mellitus complication status: with skin complications Diabetes mellitus complication detail: with foot ulcer Qualified Code(s): E11.621 - Type 2 diabetes mellitus with foot ulcer; L97.509 - Non-pressure chronic ulcer of other part of unspecified foot with unspecified severity (11) A-fib Current Visit: No Status: Chronic Qualifiers: Atrial fibrillation type: chronic Qualified Code(s): I48.2 - Chronic atrial fibrillation - Subjective Interval history: Patient seen and examined. No acute events noted overnight. Patient sitting up in bed. States overall he feels well. Denies fevers, chills, or rigors. Denies chest pain, shortness of breath, or cough. Denies nausea, vomiting, diarrhea. Reports soft BM this morning. Denies abdominal pain, urinary complaints, or appetite changes. Denies oral thrush or new skin lesions. Scheduled for surgery later today. Infect Dis PN-Objective Data - Labs CBC & Chem 7: 01/12/18 05:34 01/12/18 05:34 Labs: Laboratory Results - last 24 hr 01/11/18 01/11/18 01/12/18 11:41 21:00 05:34 WBC 11.3 H RBC 3.24 L Hgb 8.9 L Hct 29.2 L MCV 90.1 MCH 27.5 L MCHC 30.5 L RDW 15.2 H Plt Count 257 MPV 11.1 Immature Gran % 0.5 Seg Neutrophils % 54.9 Lymphocytes % 28.6 Monocytes % 7.9 Eosinophils % 7.7 Basophils % 0.4 Neutrophils # 6.2 Lymphocytes # 3.2 Monocytes # 0.9 Eosinophils # 0.9 H Basophils # 0.0 Heparin Anti-Xa, Unfract 0.44 Sodium Potassium Chloride Carbon Dioxide BUN Creatinine Est GFR ( Amer) Est GFR (Non-Af Amer) BUN/Creatinine Ratio Glucose POC Glucose 172 H Calculated Osmolality Calcium Phosphorus Magnesium 01/12/18 01/12/18 05:34 08:55 WBC RBC Hgb Hct MCV MCH MCHC RDW Plt Count MPV Immature Gran % Seg Neutrophils % Lymphocytes % Monocytes % Eosinophils % Basophils % Neutrophils # Lymphocytes # Monocytes # Eosinophils # Basophils # Heparin Anti-Xa, Unfract Sodium 139 Potassium 4.5 Chloride 105 Carbon Dioxide 28 BUN 15 Creatinine 1.31 H Est GFR ( Amer) > 60 Est GFR (Non-Af Amer) 58 L BUN/Creatinine Ratio 11 Glucose 190 H POC Glucose 177 H Calculated Osmolality 294 Calcium 9.2 Phosphorus 3.1 Magnesium 1.9 Cultures: Cultures 01/08/18 12:50 Wound Culture - Final Right Foot Methicillin Resistant S.aureus Serology 01/08/18 Range/Units 22:00 Nasal Screen MRSA (PCR) Negative (Negative) Exam - Constitutional Vitals: Temp Pulse Resp BP Pulse Ox 97.9 F 73 16 127/56 95 01/12/18 07:00 01/12/18 07:00 01/12/18 07:00 01/12/18 07:00 01/12/18 07:00 General appearance: cooperative, morbidly obese, no acute distress - Head Head exam: Present: atraumatic, normal inspection, normocephalic - Eye Eye exam: Present: EOMI, normal appearance, PERRL Pupils: Present: normal accommodation - ENT ENT exam: Present: mucous membranes moist - Neck Neck exam: Present: normal inspection - Respiratory Respiratory exam: Present: CTAB. Absent: rales, respiratory distress, rhonchi, wheezes - Cardiovascular Cardiovascular exam: Present: RRR, +S1, +S2 - GI/Abdominal GI/Abdominal exam: Present: distended (obese), normal bowel sounds, soft. Absent: tenderness - Extremities Exam Extremities exam: Present: pedal edema (1+ BLE). Absent: joint swelling, normal inspection (Venous stasis dermatitis noted to the BLE), tenderness Additional comments: Right foot dressing C/D/I. - Neurological Exam Neurological exam: Present: alert, oriented X3, no focal deficits - Psychiatric Psychiatric exam: Present: normal affect, normal mood - Skin Skin exam: Present: dry, intact, normal color, warm - VTE Documentation of Mechanical Device: Graduated compression elastic hosiery Consult Discharge Plan - Plan Referrals: Jaime Paula MD [Primary Care Provider] - - Attending Attestation I examined this patient and my medical decision-making was reviewed with Carolyn Izquierdo CNP. I agree with the documented findings, disposition and treatment plan as described except to the extent set forth below.
--- NOTE | 2018-01-12 11:23 | Internal Med Progress Note ---
Hospitalist Progress Note - Encounter Date of Encounter: 01/12/18 Time of Encounter: 11:00 - Subjective Interval History: No acute events overnight - Exam Vitals: Temp Pulse Resp BP Pulse Ox 97.7 F 94 14 153/75 94 01/12/18 10:59 01/12/18 10:59 01/12/18 10:59 01/12/18 10:59 01/12/18 10:59 Exam: Constitutional: In no distress, Sitting comfortably. Morbidly obese HEENT: PEARLA, No JVD, No lymphadenopathy CVS: S1, S2 normal, No MRG, RRR RS: Air entry equal, CTA ABdomen: Obese, Soft, Non-tender, Non-distended Extremities: Rt foot with visual deformity. Swelling on the sole with draining wound surrounded by erythema. Visible serous discharge. Non painful. Dressing in place Skin: Lymphedema on both legs. Stasis dermatitis on both legs Neuro: Cranial nerve gross normal, Motor and sensory exam grossly unremarkable, AOx3 Psych: Appropirate mood and affect, Fair insight. - Assessment and Plan (1) Osteomyelitis of right foot Current Visit: Yes Status: Acute Assessment and Plan: 01/12 Podiatry and ID following. Scheduled for bone biopsy today 01/12 by podiatry. Bone biopsy has been delayed due to scheduling issues from a podiatry standpoint. Continue daptomycin and levaquin per ID recs. Will likely need 6 weeks of IV antibiotics. Wound cultures growing MRSA and patient is allergic to vancomycin (2) History of pulmonary embolism Current Visit: No Status: Acute Assessment and Plan: ON coumadin at home - Currently switched to heparin for bone biopsy. Will hold heparin drip for procedure (3) A-fib Current Visit: No Status: Chronic Assessment and Plan: Currently in sinus rhythm - c/w coreg - On warfarin at home. On heparin drip for surgery (4) CKD (chronic kidney disease), stage III Current Visit: No Status: Chronic Assessment and Plan: -Rn Digestive at baseline - Will monitor (5) Charcot's joint of foot Current Visit: Yes Status: Acute Assessment and Plan: -Podiatry following for bone biopsy. Continue antibiotics (6) Type 2 diabetes mellitus Current Visit: No Status: Acute Assessment and Plan: Will continue on insulin but with decreased dose of home insulin and monitor for now (7) Cellulitis of plantar aspect of foot Current Visit: Yes Status: Acute Assessment and Plan: Non healing ulcer with associated cellulitis. Failure of outpatient treatment with ciprofloxacin - Patient received Vancomycin in ER with allergic reaction of itching, SOB and apprehension. continue on daptomycin and levaquin (8) CHF (congestive heart failure) Current Visit: Yes Status: Acute Assessment and Plan: - Has diastolic CHF as per last ECHO - Continue home coreg, statin, and Lasix with potassium - c/w lisinopril for HTN (9) H/O deep venous thrombosis Current Visit: Yes Status: Acute Assessment and Plan: On heparin drip (10) KELSY (acute kidney injury) Current Visit: No Status: Acute Assessment and Plan: Hold lasix and monitor creatinine DVT Prophylaxis: On heparin drip - Time Spent with Patient Total time spent is greater than 50% in coordination of care (as documented) at patient's floor/unit and/or counseling patient: Internal Medicine: Result - Labs CBC & Chem 7: 01/12/18 05:34 01/12/18 05:34 Labs: Short CBC 01/12/18 Range/Units 05:34 WBC 11.3 H (4.3-11.1) K/mcL Hgb 8.9 L (12.9-16.9) g/dL Hct 29.2 L (37.5-50.1) % Plt Count 257 (140-400) K/mcL Neutrophils # 6.2 (1.6-8.9) K/mcL BMP 01/12/18 05:34 Sodium 139 Potassium 4.5 Chloride 105 Carbon Dioxide 28 BUN 15 Creatinine 1.31 H Glucose 190 H Calcium 9.2 - ABG Interpretation ABG results: PT/INR, D-dimer PT 18.2 Seconds (9.4-12.1) H 01/07/18 14:14 - VTE Documentation of Mechanical Device: Graduated compression elastic hosiery Consult Discharge Plan - Plan Referrals: Jaime Paula MD [Primary Care Provider] - (1) Osteomyelitis of right foot Qualifiers: Osteomyelitis type: other acute Qualified Code(s): M86.171 - Other acute osteomyelitis, right ankle and foot (3) A-fib Qualifiers: Atrial fibrillation type: chronic Qualified Code(s): I48.2 - Chronic atrial fibrillation (5) Charcot's joint of foot Qualifiers: Laterality: right Qualified Code(s): M14.671 - Charcot's joint, right ankle and foot (6) Type 2 diabetes mellitus Qualifiers: 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
--- NOTE | 2018-01-12 17:48 | Anesthesia Evaluation PreOp ---
Date of Encounter: 01/12/18 Time of Encounter: 18:19 - Past History Planned Operation: RIGHT FOOT BONE BX Cardiac History: CHF, HTN, Hyperlipidemia, Arrhythmia (PAF), Other (DVT, PE) Other Medical History: Renal (CKD 3), Diabetes Type II, Other (MORBID OBESITY, BMI 48, CHARCOT'S DISEASE, ANEMIA) Anesthesia History: No Prior Anesthetic Complications, Past Anesthesia Alcohol Use: none Drug use: none Medications and Allergies Acetaminophen [Tylenol] 500 mg PO HS 12/02/16 [History] Carvedilol Phosphate [Coreg Cr] 80 mg PO DAILY 12/02/16 [History] Fluticasone/Salmeterol [Advair 250-50 Diskus] 1 each IH BID PRN 12/02/16 [ History] Furosemide [Lasix] 40 mg PO BID 12/02/16 [History] Insulin Glargine,Hum.rec.anlog [Lantus Solostar] 46 units SQ BID 12/02/16 [ History] Metformin HCl [Glucophage] 1,000 mg PO BID 12/02/16 [History] Pentoxifylline 400 mg PO BID 12/02/16 [History] Potassium Chloride 20 meq PO DAILY 12/02/16 [History] Pramipexole [Mirapex] 0.25 mg PO BID 12/02/16 [History] Loratadine [Claritin] 10 mg PO DAILY tablet 11/17/17 [Rx] Albuterol Sulfate [Ventolin Hfa] 2 puff IH Q4H PRN 01/05/18 [History] Atorvastatin [Lipitor] 40 mg PO HS 01/05/18 [History] Insulin LISPRO [HumaLOG] 10 units SQ TIDWM 01/05/18 [History] Lansoprazole [Prevacid] 30 mg PO DAILY 01/05/18 [History] Lisinopril [Zestril] 20 mg PO DAILY 01/05/18 [History] Warfarin [Coumadin] 4 mg PO TU 01/05/18 [History] Warfarin [Coumadin] 8 mg PO SUMOWETHFRSA 01/05/18 [History] 3 Allergy/AdvReac Type Severity Reaction Status Date / Time vancomycin Allergy Intermediate Itching Verified 01/05/18 19:34 peanut Allergy Anaphylaxis Verified 03/25/17 00:00 cephalexin [From Keflex] AdvReac Rash Verified 03/25/17 00:00 levofloxacin AdvReac Rash Verified 03/25/17 00:00 Sulfa (Sulfonamide AdvReac Rash Verified 03/25/17 00:00 Antibiotics) - Meds/Allergy Pre-op Review Medications Reviewed: Yes Allergies Reviewed: Yes Beta Blockers on Current Med List: Yes Anesthesia Results - Labs 01/12/18 05:34 01/12/18 05:34 Anesthesia Exam Vital Signs/O2 Sat/Glucose, Most Recent Temp Pulse Resp BP Pulse Ox 97.8 F 74 14 160/99 95 01/12/18 13:57 01/12/18 13:57 01/12/18 13:57 01/12/18 13:57 01/12/18 13:57 Blood Glucose* 120 NPO (# of Hours): 8 - HEENT Mallampati: I Teeth: Edentulous Oral Opening: Greater than 3 - Cardiac Rhythm: Regular - Pulmonary Breath Sounds: bilateral Clear Respiratory Effort: Symmetrical Anesthesia Assess/Plan ASA Score: 4 Modified Ruthann Scale for Level of Consciousness: Cooperative, oriented, and tranquil Anesthetic Plan: MAC Monitoring Plan: Standard Monitors Recovery Plan: PACU
[2018-01-12] MEDS ORDERED: *HR* Midazolam HCl 2 MG/2 ML VIAL ONE (17:59)
[2018-01-12] MEDS ORDERED: *HR* FentaNYL (PF) 100 MCG/2 ML VIAL ONE (17:59)
[2018-01-12] MEDS ORDERED: Ondansetron 4 MG/2 ML VIAL ONE ×2 (17:59→18:00)
[2018-01-12] MEDS ORDERED: Lidocaine -MPF 2% 2 ML VIAL ONE (17:59)
[2018-01-12] MEDS ORDERED: Propofol 500 MG/50 ML INFUS..BTL ONE (18:01)
[2018-01-12] MEDS ORDERED: Lidocaine/EPI 1:100k 1% 20 ML VIAL ONE (18:16)
--- NOTE | 2018-01-12 18:19 | Podiatry Progress Note ---
Date of Encounter: 01/12/18 Time of Encounter: 17:10 - Assessment and Plan (1) Chronic ulcer of right foot with fat layer exposed Current Visit: No Status: Acute wound care with mesalt packing. (2) Osteomyelitis of right foot Current Visit: Yes Status: Acute proceeding with bone biopsy procedure and condition discussed. Qualifiers: Osteomyelitis type: other acute Qualified Code(s): M86.171 - Other acute osteomyelitis, right ankle and foot Objective - Vital Signs Vital Signs: Vital Signs Temp Pulse Resp BP Pulse Ox 01/12/18 13:57 97.8 F 74 14 160/99 95 01/12/18 10:59 97.7 F 94 14 153/75 94 01/12/18 07:00 97.9 F 73 16 127/56 95 01/12/18 03:50 98.1 F 58 17 123/74 95 01/11/18 19:40 98.0 F 76 14 110/54 97 Intake and Output 01/12/18 01/12/18 01/12/18 07:59 15:59 23:59 Intake Total 445 / 445 240 / 240 190 / 190 Balance 445 / 445 240 / 240 190 / 190 Intake: IV Fluids 205 / 205 190 / 190 Heparin 25,000 UNIT/500 ML D5W 205 / 205 190 / 190 25,000 unit In 500 ml @ 14 UNIT /KG/HR 48.77 mls/hr IVC . [id number] MONICA Rx#:[id number] Oral 240 / 240 240 / 240 0 / 0 Other: Meal NPO Lunch NPO Dinner Percent of Meal Consumed 0% 0% # Voids 1 2 Weight 171 kg Blood Glucose* 196 120 Patient Weight 01/12/18 23:59 Weight 171 kg - Lab Result Diagrams: 01/12/18 05:34 01/12/18 05:34 Labs: Abnormal lab results WBC 11.3 K/mcL (4.3-11.1) H 01/12/18 05:34 RBC 3.24 M/mcL (4.19-5.50) L 01/12/18 05:34 Hgb 8.9 g/dL (12.9-16.9) L 01/12/18 05:34 Hct 29.2 % (37.5-50.1) L 01/12/18 05:34 MCH 27.5 pg (28.0-33.3) L 01/12/18 05:34 MCHC 30.5 g/dL (31.6-35.5) L 01/12/18 05:34 RDW 15.2 % (11.5-14.5) H 01/12/18 05:34 Eosinophils # 0.9 K/mcL (0.0-0.6) H 01/12/18 05:34 ESR 62 mm/hr (0-10) H 01/09/18 01:31 PT 18.2 Seconds (9.4-12.1) H 01/07/18 14:14 Creatinine 1.31 mg/dL (0.70-1.30) H 01/12/18 05:34 Est GFR (Non-Af Amer) 58 (> 60) L 01/12/18 05:34 Glucose 190 mg/dL (70-105) H 01/12/18 05:34 POC Glucose 177 mg/dL (70-99) H 01/12/18 08:55 C-Reactive Protein 17 mg/L (Less than 10) H 01/09/18 01:31 Serum Total Protein 6.3 g/dL (6.4-8.9) L 01/06/18 04:44 - VTE Documentation of Mechanical Device: Graduated compression elastic hosiery Consult Discharge Plan - Plan Referrals: Jaime Paula MD [Primary Care Provider] -
[2018-01-12] MEDS ORDERED: Dexamethasone 4 MG/ML VIAL ONE (18:34)
--- NOTE | 2018-01-12 19:04 | Operative Note ---
Date of procedure: 01/12/18 Pre-op diagnosis: osteomyelitis right cuboid bone Post-op diagnosis: same Procedure: bone biopsy right cuboid bone Implants: none Complications: none Anesthesia: MAC Local Anesthetics: 1% Lidocaine HCL with Epinephrine 1:200,000 SubQ (cc) Surgeon: Henrry Leone Was there an records management assistant present: No Estimated blood loss (cc): 10 Specimen: microbiology-cuboid bone (AFB, aero, anaer, gram stn) pathology- cuboid bone Condition: stable Disposition: PACU Procedure in Detail: Indications: 52 year old diabetic male with history of Charcot an MRI showing new area of cuboid osteomyelitis not present on previous MRI. Patient has ulceration plantar foot with direct extension into the plantar soft tissues approximately 3 cm. The wound does not probe to bone. Nature of the above procedure, risks versus benefits potential complications consequences of surgery and his condition discussed at length. All his questions were answered and informed consent was signed patient was taken preoperative holding area and operating room placed on operating room table in the supine position. No tourniquet was utilized during the entire procedure. Right posterior approach draped in the usual sterile fashion the following procedure began. Bone biopsy right foot. Attention was directed the lateral aspect of the patient's right foot where a #15 blade was used to make an incision approximately 1 cm in length. Skin incision was deepened through blunt dissection down to the level of the cuboid bone. The C-arm was utilized to confirm the location of the Jamshidi biopsy needle into the cuboid bone. Samples of bone were then taken from the cuboid and sent to microbiology and pathology. The bone was not felt to be soft. The site was then irrigated with normal sterile saline. 3-0 Prolene was used to reapproximate the skin. Postoperative bandaging included Xeroform, 4 x 4 gauze Kerlix and an Dominic wrap. Mesalt was placed into the plantar wound. The patient tolerated the anesthesia and the procedure well escorted the recovery room with vital signs stable and vascular status intact to the right foot noted by his capillary refill time to all digits of the right foot. Adequate hemostasis was present. Patient will return to floor where he will continue IV antibiotics.
--- NOTE | 2018-01-12 19:23 | Event Note ---
Date of Encounter: 01/12/18 Time of Encounter: 18:45 resume any and all anticoagulation. hemostasis is adequate.
[2018-01-12] MEDS ORDERED: Naloxone 0.4 MG/ML INJ IVP PRN (19:30)
[2018-01-12] MEDS ORDERED: Budesonide/Formoterol 80/4.5 MDI IH PRN (19:30)
[2018-01-12] MEDS ORDERED: *HR* Heparin 5,000 UNIT/ML VIAL IVP PRN ×2 (19:30)
[2018-01-13 04:21] LABS: Basophils % 0.2 %; Eosinophils # 0.1 K/mcL (0.0-0.6); Eosinophils % 0.5 %; Hematocrit 32.7 % (37.5-50.1); Hemoglobin 10.1 g/dL (12.9-16.9); Immature Granulocytes % 0.6 % (0-4); Lymphocytes # 1.6 K/mcL (0.6-4.6); Lymphocytes % 14.6 %; Mean Corpuscular HGB Conc 30.9 g/dL (31.6-35.5); Mean Corpuscular Hemoglobin 28.3 pg (28.0-33.3); Mean Corpuscular Volume 91.6 fL (83.0-100.0); Mean Platelet Volume 10.9 fL (9.4-12.4); Monocytes # 0.2 K/mcL (0.0-1.3); Monocytes % 2.1 %; Platelet Count 291 K/mcL (140-400); Red Blood Count 3.57 M/mcL (4.19-5.50); Red Cell Distribution Width 14.8 % (11.5-14.5)
[2018-01-13 04:45] LABS: Calcium 9.5 mg/dL (8.6-10.3); Magnesium 1.9 mg/dL (1.6-2.6); Phosphorous 4.4 mg/dL (2.7-4.5); Potassium 5.6 mEq/L (3.5-5.1)
[2018-01-13] MEDS: Heparin 25,000 UNIT/500 ML D5W 25,000 UNIT/500 ML BAG IVC SCH ×2 (06:30→21:10)
[2018-01-13] MEDS: Insulin LISPRO 300 UNITS/3 ML VIAL SQ SCH ×3 (08:35→17:25)
[2018-01-13] MEDS: Insulin DETEMIR 100 UNIT/ML X5UNITS SQ SCH ×2 (08:36→21:09)
[2018-01-13] MEDS: Levofloxacin 750 MG/150 ML 750 MG/150 ML BAG IVPB SCH (08:37)
[2018-01-13] MEDS: Loratadine 10 MG TABLET PO SCH (08:37)
[2018-01-13] MEDS: Lisinopril 20 MG TABLET PO SCH (08:37)
[2018-01-13 10:58] LABS: Heparin anti-factor XA UFH 0.9 IU/mL (0.30-0.70)
--- NOTE | 2018-01-13 11:24 | Internal Med Progress Note ---
Hospitalist Progress Note - Encounter Date of Encounter: 01/13/18 Time of Encounter: 11:00 - Subjective Interval History: No acute events overnight - Exam Vitals: Temp Pulse Resp BP Pulse Ox 97.9 F 79 18 127/54 94 01/13/18 07:35 01/13/18 07:35 01/13/18 07:35 01/13/18 07:35 01/13/18 07:35 Exam: Constitutional: In no distress, Sitting comfortably. Morbidly obese HEENT: PEARLA, No JVD, No lymphadenopathy CVS: S1, S2 normal, No MRG, RRR RS: Air entry equal, CTA ABdomen: Obese, Soft, Non-tender, Non-distended Extremities: Rt foot with visual deformity. Swelling on the sole with draining wound surrounded by erythema. Visible serous discharge. Non painful. Dressing in place Skin: Lymphedema on both legs. Stasis dermatitis on both legs Neuro: Cranial nerve gross normal, Motor and sensory exam grossly unremarkable, AOx3 Psych: Appropirate mood and affect, Fair insight. - Assessment and Plan (1) Osteomyelitis of right foot Current Visit: Yes Status: Acute Assessment and Plan: 01/12 Podiatry and ID following. Scheduled for bone biopsy today 01/12 by podiatry. Bone biopsy has been delayed due to scheduling issues from a podiatry standpoint. Continue daptomycin and levaquin per ID recs. Will likely need 6 weeks of IV antibiotics. Wound cultures growing MRSA and patient is allergic to vancomycin 01/13/ s/p bone biopsy. Follow up cultures. continue IV antibiotics (2) History of pulmonary embolism Current Visit: No Status: Acute Assessment and Plan: On coumadin at home. 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 Continue antibiotics (6) Type 2 diabetes mellitus Current Visit: No Status: Acute Assessment and Plan: Will continue on insulin but with decreased dose of home insulin and monitor for now (7) Cellulitis of plantar aspect of foot Current Visit: Yes Status: Acute Assessment and Plan: Non healing ulcer with associated cellulitis. Failure of outpatient treatment with ciprofloxacin - Patient received Vancomycin in ER with allergic reaction of itching, SOB and apprehension. continue on daptomycin and levaquin (8) CHF (congestive heart failure) Current Visit: Yes Status: Acute Assessment and Plan: - Has diastolic CHF as per last ECHO - Continue home coreg, statin, and Lasix with potassium - c/w lisinopril for HTN (9) H/O deep venous thrombosis Current Visit: Yes Status: Acute Assessment and Plan: On heparin drip (10) KELSY (acute kidney injury) Current Visit: No Status: Acute Assessment and Plan: Hold lasix and monitor creatinine - Time Spent with Patient Total time spent is greater than 50% in coordination of care (as documented) at patient's floor/unit and/or counseling patient: Internal Medicine: Result - Labs CBC & Chem 7: 01/13/18 04:04 01/13/18 04:04 Labs: Short CBC 01/13/18 Range/Units 04:04 WBC 10.9 (4.3-11.1) K/mcL Hgb 10.1 L (12.9-16.9) g/dL Hct 32.7 L (37.5-50.1) % Plt Count 291 (140-400) K/mcL Neutrophils # 9.0 H (1.6-8.9) K/mcL BMP 01/13/18 04:04 Sodium 137 Potassium 5.6 H Chloride 105 Carbon Dioxide 23 BUN 19 Creatinine 1.51 H Glucose 294 H Calcium 9.5 - ABG Interpretation ABG results: PT/INR, D-dimer PT 18.2 Seconds (9.4-12.1) H 01/07/18 14:14 - Impressions Impressions Fluoroscopy 01/12/18 00:00 IMPRESSION: Intraprocedural fluoroscopic spot images as above. See separate procedure report for more information. D/ / J Carlos Juarez MD / J Carlos Juarez MD Interpreting Provider: J Carlos Juarez MD Foot X-Ray 01/12/18 00:00 IMPRESSION: Intraprocedural fluoroscopic spot images as above. See separate procedure report for more information. D/ / J Carlos Juarez MD / J Carlos Juarez MD Interpreting Provider: J Carlos Juarez MD - VTE Documentation of Mechanical Device: Intermittent pneumatic compression device Consult Discharge Plan - Plan Referrals: Jaime Paula MD [Primary Care Provider] - (1) Osteomyelitis of right foot Qualifiers: Osteomyelitis type: other acute Qualified Code(s): M86.171 - Other acute osteomyelitis, right ankle and foot (3) A-fib Qualifiers: Atrial fibrillation type: chronic Qualified Code(s): I48.2 - Chronic atrial fibrillation (5) Charcot's joint of foot Qualifiers: Laterality: right Qualified Code(s): M14.671 - Charcot's joint, right ankle and foot (6) Type 2 diabetes mellitus Qualifiers: Diabetes mellitus intermediate manager insulin use: without mcc use Diabetes mellitus complication status: with skin complications Diabetes mellitus complication detail: with foot ulcer Qualified Code(s): E11.621 - Type 2 diabetes mellitus with foot ulcer; L97.509 - Non-pressure chronic ulcer of other part of unspecified foot with unspecified severity (8) CHF (congestive heart failure) Qualifiers: Heart failure type: unspecified
[2018-01-13 13:18] LABS: INR 1.2; Prothrombin Time 13.9 Seconds (9.4-12.1)
[2018-01-13] MEDS: DAPTOmycin 1,000 MG in 0.9 % Sodium Chloride 100 ML IVPB SCH (15:09)
[2018-01-13] MEDS ORDERED: Warfarin perPT PO PRN (18:00)
[2018-01-14 00:54] LABS: Basophils % 0.3 %; Eosinophils # 0.3 K/mcL (0.0-0.6); Eosinophils % 2.1 %; Hemoglobin 8.7 g/dL (12.9-16.9); Immature Granulocytes % 0.6 % (0-4); Lymphocytes # 3.8 K/mcL (0.6-4.6); Lymphocytes % 31.5 %; Mean Corpuscular HGB Conc 31.1 g/dL (31.6-35.5); Mean Corpuscular Hemoglobin 28.1 pg (28.0-33.3); Mean Corpuscular Volume 90.3 fL (83.0-100.0); Mean Platelet Volume 10.6 fL (9.4-12.4); Monocytes # 0.9 K/mcL (0.0-1.3); Monocytes % 7.9 %; Neutrophils # 6.9 K/mcL (1.6-8.9); Platelet Count 235 K/mcL (140-400); Red Cell Distribution Width 15.3 % (11.5-14.5); Segmented Neutrophils % 57.6 %
[2018-01-14 01:01] LABS: Heparin anti-factor XA UFH 0.57 IU/mL (0.30-0.70); INR 1.1; Prothrombin Time 12.7 Seconds (9.4-12.1)
[2018-01-14 01:13] LABS: BUN/Creatinine Ratio 16 (6-26); Blood Urea Nitrogen 24 mg/dL (6-20); Carbon Dioxide 26 mEq/L (23-29); Chloride 105 mEq/L (98-107); Glucose 215 mg/dL (70-105); Magnesium 1.8 mg/dL (1.6-2.6); Osmolality,Calculated 295 (280-300); Phosphorous 4.5 mg/dL (2.7-4.5); Potassium 4.6 mEq/L (3.5-5.1); Sodium 137 mEq/L (136-145); eGFR For Non-African Americans 50 (> 60)
[2018-01-14] MEDS: Loratadine 10 MG TABLET PO SCH (09:02)
[2018-01-14] MEDS: Lisinopril 20 MG TABLET PO SCH (09:03)
[2018-01-14] MEDS: Insulin LISPRO 300 UNITS/3 ML VIAL SQ SCH ×3 (09:04→17:01)
[2018-01-14] MEDS: Levofloxacin 750 MG/150 ML 750 MG/150 ML BAG IVPB SCH (09:04)
[2018-01-14] MEDS: Insulin DETEMIR 100 UNIT/ML X5UNITS SQ SCH ×2 (09:13→20:36)
--- NOTE | 2018-01-14 09:58 | Internal Med Progress Note ---
Hospitalist Progress Note - Encounter Date of Encounter: 01/14/18 Time of Encounter: 09:50 - Subjective Interval History: No acute events overnight - Exam Vitals: Temp Pulse Resp BP Pulse Ox 97.7 F 66 15 104/69 97 01/14/18 08:02 01/14/18 08:02 01/14/18 08:02 01/14/18 08:02 01/14/18 08:02 Exam: Constitutional: In no distress, Sitting comfortably. Morbidly obese HEENT: PEARLA, No JVD, No lymphadenopathy CVS: S1, S2 normal, No MRG, RRR RS: Air entry equal, CTA ABdomen: Obese, Soft, Non-tender, Non-distended Extremities: Rt foot with visual deformity. Swelling on the sole with draining wound surrounded by erythema. Visible serous discharge. Non painful. Dressing in place Skin: Lymphedema on both legs. Stasis dermatitis on both legs Neuro: Cranial nerve gross normal, Motor and sensory exam grossly unremarkable, AOx3 Psych: Appropirate mood and affect, Fair insight. - Assessment and Plan (1) Osteomyelitis of right foot Current Visit: Yes Status: Acute Assessment and Plan: Podiatry and ID following. Scheduled for bone biopsy today 01/12 by podiatry. Continue daptomycin and levaquin per ID recs. Will likely need 6 weeks of IV antibiotics. Wound cultures growing MRSA and patient is allergic to vancomycin 01/14 s/p bone biopsy on 01/12. Follow up cultures. continue IV antibiotics (2) History of pulmonary embolism Current Visit: No Status: Acute Assessment and Plan: On coumadin at home. 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 Continue antibiotics (6) Type 2 diabetes mellitus Current Visit: No Status: Acute Assessment and Plan: Will continue on insulin but with decreased dose of home insulin and monitor for now (7) Cellulitis of plantar aspect of foot Current Visit: Yes Status: Acute Assessment and Plan: Non healing ulcer with associated cellulitis. Failure of outpatient treatment with ciprofloxacin - Patient received Vancomycin in ER with allergic reaction of itching, SOB and apprehension. continue on daptomycin and levaquin (8) CHF (congestive heart failure) Current Visit: Yes Status: Acute Assessment and Plan: - Has diastolic CHF as per last ECHO - Continue home coreg, statin, and Lasix with potassium - c/w lisinopril for HTN (9) H/O deep venous thrombosis Current Visit: Yes Status: Acute Assessment and Plan: On heparin drip (10) KELSY (acute kidney injury) Current Visit: No Status: Acute Assessment and Plan: Hold lasix and monitor creatinine DVT Prophylaxis: On heparin drip - Time Spent with Patient Total time spent is greater than 50% in coordination of care (as documented) at patient's floor/unit and/or counseling patient: Internal Medicine: Result - Labs CBC & Chem 7: 01/14/18 00:42 01/14/18 00:42 Labs: Short CBC 01/14/18 Range/Units 00:42 WBC 11.9 H (4.3-11.1) K/mcL Hgb 8.7 L (12.9-16.9) g/dL Hct 28.0 L (37.5-50.1) % Plt Count 235 (140-400) K/mcL Neutrophils # 6.9 (1.6-8.9) K/mcL BMP 01/14/18 00:42 Sodium 137 Potassium 4.6 Chloride 105 Carbon Dioxide 26 BUN 24 H Creatinine 1.49 H Glucose 215 H Calcium 9.0 - ABG Interpretation ABG results: PT/INR, D-dimer PT 12.7 Seconds (9.4-12.1) H 01/14/18 00:42 - VTE Documentation of Mechanical Device: Intermittent pneumatic compression device Consult Discharge Plan - Plan Referrals: Jaime Paula MD [Primary Care Provider] - (1) Osteomyelitis of right foot Qualifiers: Osteomyelitis type: other acute Qualified Code(s): M86.171 - Other acute osteomyelitis, right ankle and foot (3) A-fib Qualifiers: Atrial fibrillation type: chronic Qualified Code(s): I48.2 - Chronic atrial fibrillation (5) Charcot's joint of foot Qualifiers: Laterality: right Qualified Code(s): M14.671 - Charcot's joint, right ankle and foot (6) Type 2 diabetes mellitus Qualifiers: Diabetes mellitus combination man insulin use: without combination man use Diabetes mellitus complication status: with skin complications Diabetes mellitus complication detail: with foot ulcer Qualified Code(s): E11.621 - Type 2 diabetes mellitus with foot ulcer; L97.509 - Non-pressure chronic ulcer of other part of unspecified foot with unspecified severity (8) CHF (congestive heart failure) Qualifiers: Heart failure type: unspecified
[2018-01-14] MEDS: Heparin 25,000 UNIT/500 ML D5W 25,000 UNIT/500 ML BAG IVC SCH ×2 (12:45→19:22)
[2018-01-14] MEDS: DAPTOmycin 1,000 MG in 0.9 % Sodium Chloride 100 ML IVPB SCH (15:03)
[2018-01-14] MEDS ORDERED: *HR* Warfarin 4 MG TABLET PO ONE (18:00)
[2018-01-14] MEDS: Warfarin perPT PO SCH (19:21)
[2018-01-15 01:46] LABS: Basophils # 0.1 K/mcL (0.0-0.2); Basophils % 0.5 %; Eosinophils # 0.7 K/mcL (0.0-0.6); Eosinophils % 6.4 %; Hematocrit 30.2 % (37.5-50.1); Hemoglobin 9.3 g/dL (12.9-16.9); Immature Granulocytes % 0.5 % (0-4); Lymphocytes # 4.2 K/mcL (0.6-4.6); Mean Corpuscular HGB Conc 30.8 g/dL (31.6-35.5); Mean Corpuscular Hemoglobin 28.1 pg (28.0-33.3); Mean Corpuscular Volume 91.2 fL (83.0-100.0); Mean Platelet Volume 10.8 fL (9.4-12.4); Monocytes # 0.9 K/mcL (0.0-1.3); Monocytes % 7.8 %; Neutrophils # 5.2 K/mcL (1.6-8.9); Platelet Count 228 K/mcL (140-400); Red Blood Count 3.31 M/mcL (4.19-5.50); Red Cell Distribution Width 15.3 % (11.5-14.5); Segmented Neutrophils % 46.8 %
[2018-01-15 01:56] LABS: INR 1.1; Prothrombin Time 12.9 Seconds (9.4-12.1)
[2018-01-15 02:06] LABS: BUN/Creatinine Ratio 18 (6-26); Blood Urea Nitrogen 26 mg/dL (6-20); Calcium 8.8 mg/dL (8.6-10.3); Carbon Dioxide 24 mEq/L (23-29); Chloride 107 mEq/L (98-107); Glucose 160 mg/dL (70-105); Magnesium 1.8 mg/dL (1.6-2.6); Osmolality,Calculated 294 (280-300); Phosphorous 4.8 mg/dL (2.7-4.5); Potassium 4.6 mEq/L (3.5-5.1); Sodium 138 mEq/L (136-145); eGFR For Non-African Americans 51 (> 60)
[2018-01-15] MEDS: Heparin 25,000 UNIT/500 ML D5W 25,000 UNIT/500 ML BAG IVC SCH ×2 (04:22→20:14)
[2018-01-15] MEDS: Insulin LISPRO 300 UNITS/3 ML VIAL SQ SCH ×3 (08:11→16:32)
[2018-01-15] MEDS: Loratadine 10 MG TABLET PO SCH (08:12)
[2018-01-15] MEDS: Levofloxacin 750 MG/150 ML 750 MG/150 ML BAG IVPB SCH (08:12)
[2018-01-15] MEDS: Insulin DETEMIR 100 UNIT/ML X5UNITS SQ SCH ×2 (08:13→21:23)
[2018-01-15] MEDS: Lisinopril 20 MG TABLET PO SCH (08:14)
--- NOTE | 2018-01-15 11:12 | Internal Med Progress Note ---
Hospitalist Progress Note - Encounter Date of Encounter: 01/15/18 Time of Encounter: 11:00 - Subjective Interval History: No acute events overnight - Exam Vitals: Temp Pulse Resp BP Pulse Ox 97.7 F 73 16 124/66 98 01/15/18 10:40 01/15/18 10:40 01/15/18 10:40 01/15/18 10:40 01/15/18 10:40 Exam: Constitutional: In no distress, Sitting comfortably. Morbidly obese HEENT: PEARLA, No JVD, No lymphadenopathy CVS: S1, S2 normal, No MRG, RRR RS: Air entry equal, CTA ABdomen: Obese, Soft, Non-tender, Non-distended Extremities: Rt foot with visual deformity. Swelling on the sole with draining wound surrounded by erythema. Visible serous discharge. Non painful. Dressing in place Skin: Lymphedema on both legs. Stasis dermatitis on both legs Neuro: Cranial nerve gross normal, Motor and sensory exam grossly unremarkable, AOx3 Psych: Appropirate mood and affect, Fair insight. - Assessment and Plan (1) Osteomyelitis of right foot Current Visit: Yes Status: Acute Assessment and Plan: Podiatry and ID following. Scheduled for bone biopsy today 01/12 by podiatry. Continue daptomycin and levaquin per ID recs. Will likely need 6 weeks of IV antibiotics. Wound cultures growing MRSA and patient is allergic to vancomycin 01/15 s/p bone biopsy on 01/12. Follow up cultures. continue IV antibiotics and ID recs for discharge planning pending bobe biopsy cultures (2) History of pulmonary embolism Current Visit: No Status: Acute Assessment and Plan: On coumadin at home. Resume warfarin with heparin bridging. Warfarin had been held for bone biopsy (3) A-fib Current Visit: No Status: Chronic Assessment and Plan: Currently in sinus rhythm - c/w coreg -Continue warfarin (4) CKD (chronic kidney disease), stage III Current Visit: No Status: Chronic Assessment and Plan: -Cell Biologist at baseline - Will monitor (5) Charcot's joint of foot Current Visit: Yes Status: Acute Assessment and Plan: -Podiatry following for bone biopsy. Continue antibiotics (6) Type 2 diabetes mellitus Current Visit: No Status: Acute Assessment and Plan: Will continue on insulin but with decreased dose of home insulin and monitor for now (7) Cellulitis of plantar aspect of foot Current Visit: Yes Status: Acute Assessment and Plan: Non healing ulcer with associated cellulitis. Failure of outpatient treatment with ciprofloxacin - Patient received Vancomycin in ER with allergic reaction of itching, SOB and apprehension. continue on daptomycin and levaquin (8) CHF (congestive heart failure) Current Visit: Yes Status: Acute Assessment and Plan: - Has diastolic CHF as per last ECHO - Continue home coreg, statin, and Lasix with potassium - c/w lisinopril for HTN (9) H/O deep venous thrombosis Current Visit: Yes Status: Acute Assessment and Plan: On heparin drip (10) KELSY (acute kidney injury) Current Visit: No Status: Acute Assessment and Plan: Hold lasix and monitor creatinine DVT Prophylaxis: On heparin drip - Time Spent with Patient Total time spent is greater than 50% in coordination of care (as documented) at patient's floor/unit and/or counseling patient: Internal Medicine: Result - Labs CBC & Chem 7: 01/15/18 01:27 01/15/18 01:27 Labs: Short CBC 01/15/18 Range/Units 01:27 WBC 11.0 (4.3-11.1) K/mcL Hgb 9.3 L (12.9-16.9) g/dL Hct 30.2 L (37.5-50.1) % Plt Count 228 (140-400) K/mcL Neutrophils # 5.2 (1.6-8.9) K/mcL BMP 01/15/18 01:27 Sodium 138 Potassium 4.6 Chloride 107 Carbon Dioxide 24 BUN 26 H Creatinine 1.46 H Glucose 160 H Calcium 8.8 - ABG Interpretation ABG results: PT/INR, D-dimer PT 12.9 Seconds (9.4-12.1) H 01/15/18 01:27 - VTE Documentation of Mechanical Device: Intermittent pneumatic compression device Consult Discharge Plan - Plan Referrals: Jaime Paula MD [Primary Care Provider] - (1) Osteomyelitis of right foot Qualifiers: Osteomyelitis type: other acute Qualified Code(s): M86.171 - Other acute osteomyelitis, right ankle and foot (3) A-fib Qualifiers: Atrial fibrillation type: chronic Qualified Code(s): I48.2 - Chronic atrial fibrillation (5) Charcot's joint of foot Qualifiers: Laterality: right Qualified Code(s): M14.671 - Charcot's joint, right ankle and foot (6) Type 2 diabetes mellitus Qualifiers: Diabetes mellitus half-way insulin use: without half-way use Diabetes mellitus complication status: with skin complications Diabetes mellitus complication detail: with foot ulcer Qualified Code(s): E11.621 - Type 2 diabetes mellitus with foot ulcer; L97.509 - Non-pressure chronic ulcer of other part of unspecified foot with unspecified severity (8) CHF (congestive heart failure) Qualifiers: Heart failure type: unspecified
[2018-01-15] MEDS: DAPTOmycin 1,000 MG in 0.9 % Sodium Chloride 100 ML IVPB SCH (13:17)
[2018-01-15] MEDS: Warfarin perPT PO SCH (16:34)
[2018-01-15] MEDS ORDERED: *HR* Warfarin 4 MG TABLET PO ONE (18:00)
[2018-01-16 01:38] LABS: Heparin anti-factor XA UFH 0.7 IU/mL (0.30-0.70)
[2018-01-16 01:39] LABS: INR 1.2; Prothrombin Time 13.9 Seconds (9.4-12.1)
[2018-01-16] MEDS: Insulin LISPRO 300 UNITS/3 ML VIAL SQ SCH ×3 (07:30→17:16)
[2018-01-16] MEDS: Loratadine 10 MG TABLET PO SCH (08:01)
[2018-01-16] MEDS: Levofloxacin 750 MG/150 ML 750 MG/150 ML BAG IVPB SCH (08:01)
[2018-01-16] MEDS: Insulin DETEMIR 100 UNIT/ML X5UNITS SQ SCH ×2 (08:02→22:10)
[2018-01-16] MEDS: Lisinopril 20 MG TABLET PO SCH (08:03)
[2018-01-16 09:00] LABS: Basophils % 0.5 %; Eosinophils # 0.7 K/mcL (0.0-0.6); Eosinophils % 7.6 %; Hematocrit 28.8 % (37.5-50.1); Immature Granulocytes % 0.6 % (0-4); Immature Platelets 5.8 % (1.1-6.1); Lymphocytes % 35.1 %; Mean Corpuscular HGB Conc 31.3 g/dL (31.6-35.5); Mean Corpuscular Hemoglobin 28.6 pg (28.0-33.3); Mean Corpuscular Volume 91.4 fL (83.0-100.0); Mean Platelet Volume 10.9 fL (9.4-12.4); Monocytes # 0.6 K/mcL (0.0-1.3); Monocytes % 7.2 %; Neutrophils # 4.2 K/mcL (1.6-8.9); Platelet Count 212 K/mcL (140-400); Red Blood Count 3.15 M/mcL (4.19-5.50); Red Cell Distribution Width 15.5 % (11.5-14.5)
[2018-01-16] MEDS: Heparin 25,000 UNIT/500 ML D5W 25,000 UNIT/500 ML BAG IVC SCH (09:51)
[2018-01-16 11:34] LABS: BUN/Creatinine Ratio 16 (6-26); Blood Urea Nitrogen 24 mg/dL (6-20); Calcium 9.4 mg/dL (8.6-10.3); Carbon Dioxide 25 mEq/L (23-29); Chloride 106 mEq/L (98-107); Glucose 165 mg/dL (70-105); Osmolality,Calculated 296 (280-300); Potassium 4.6 mEq/L (3.5-5.1); Sodium 139 mEq/L (136-145); eGFR For Non-African Americans 50 (> 60)
[2018-01-16 11:53] LABS: Sodium Corrected Result mEq/L (136-145)
[2018-01-16 11:54] LABS: Chloride Corrected Result mEq/L (98-107); Potassium Corrected Result mEq/L (3.5-5.1)
[2018-01-16 11:55] LABS: Blood Urea Nitrogen Corrected Result mg/dL (6-20); Carbon Dioxide Corrected Result mEq/L (23-29)
[2018-01-16 11:57] LABS: BUN/Creatinine Ratio Corrected Result (6-26); Glucose Corrected Result mg/dL (70-105); eGFR For Non-African Americans Corrected Result (> 60)
[2018-01-16 11:58] LABS: Calcium Corrected Result mg/dL (8.6-10.3); Creatine Kinase Corrected Result Units/L (30-223); Osmolality,Calculated Corrected Result (280-300)
[2018-01-16 12:30] LABS: Creatine Kinase 35 Units/L (30-223)
[2018-01-16] MEDS: DAPTOmycin 1,000 MG in 0.9 % Sodium Chloride 100 ML IVPB SCH (13:56)
--- NOTE | 2018-01-16 14:53 | Internal Med Progress Note ---
Hospitalist Progress Note - Encounter Date of Encounter: 01/16/18 Time of Encounter: 09:50 - Subjective Interval History: No pain in right foot. No fevers or chills. Awaiting bone bx results. - Exam Vitals: Temp Pulse Resp BP Pulse Ox 98.0 F 79 15 116/73 97 01/16/18 14:26 01/16/18 14:26 01/16/18 14:26 01/16/18 14:26 01/16/18 14:26 Exam: General: awake, alert, appears stated age, obese Cardiovascular:regular rate and rhythm, normal S1 & S2, no rubs, murmurs or gallops. no pitting lower extremity edema, warm feet bl Lungs:Normal breath sounds, no wheezes, or crackles. Normal respiratory effort Extremities:RLE knee, ankle, toes rom intact and painless Neurological: AAOx3, CN grossly intact, no focal deficits, bl foot decreased sensation to light touch Skin:Normal color, no rash, no pallor, RLE foot is bandaged with dressing clean , dry, intact - Assessment and Plan (1) Osteomyelitis of right foot Current Visit: Yes Status: Acute Assessment and Plan: Podiatry and ID following. Scheduled for bone biopsy 01/12 by podiatry. -Continue daptomycin and levaquin per ID recs. Will likely need 6 weeks of IV antibiotics. -Wound cultures growing MRSA and patient is allergic to vancomycin -Follow up cultures. continue IV antibiotics and ID recs for discharge planning pending bone biopsy cultures (2) Cellulitis of plantar aspect of foot Current Visit: Yes Status: Acute Assessment and Plan: Non healing ulcer with associated cellulitis. Failure of outpatient treatment with ciprofloxacin - Patient received Vancomycin in ER with allergic reaction of itching, SOB and apprehension. c -continue on daptomycin and levaquin -ID following -Podiatry obtained bone bx -pending bone bx results -will then fu ID recs for abx on dc (3) History of pulmonary embolism Current Visit: No Status: Acute Assessment and Plan: On coumadin at home. Resume warfarin with heparin bridging. Warfarin had been held for bone biopsy -pharm is managing (4) A-fib Current Visit: No Status: Chronic Assessment and Plan: Currently in sinus rhythm - c/w coreg -Continue warfarin as above (5) CKD (chronic kidney disease), stage III Current Visit: No Status: Chronic Assessment and Plan: -Creative Services Specialist at baseline - Will cont to monitor -avoid nephro toxic agents (6) Charcot's joint of foot Current Visit: Yes Status: Acute Assessment and Plan: -Podiatry following for bone biopsy. Continue antibiotics (7) Type 2 diabetes mellitus Current Visit: No Status: Acute Assessment and Plan: Will continue levemir (decreased dose of home insulin) and monitor for now, SSI and accu checks (8) KELSY (acute kidney injury) Current Visit: No Status: Acute Assessment and Plan: Creat peaked at 1.6, variable since that time creat on admit 1.34 and overall down trending toward that value -avoid nephro toxic agents as best as can -renally dose abx as needed (9) CHF (congestive heart failure) Current Visit: Yes Status: Acute Assessment and Plan: - Has diastolic CHF as per last ECHO, NOT in acute exacerbation - Continue home coreg, statin -lasix held while monitoring for creat improvement - c/w lisinopril for HTN (10) H/O deep venous thrombosis Current Visit: Yes Status: Acute Assessment and Plan: On heparin drip briding to therapeutic warfarin -pharm managing DVT Prophylaxis: heparin bridge to therapeutic INR on coumadin - Time Spent with Patient Total time spent is greater than 50% in coordination of care (as documented) at patient's floor/unit and/or counseling patient: Greater than 35 minutes Plan of Care Discussed with: patient Internal Medicine: Result - Labs CBC & Chem 7: 01/16/18 08:38 01/16/18 10:14 Labs: Short CBC 01/16/18 Range/Units 08:38 WBC 8.6 (4.3-11.1) K/mcL Hgb 9.0 L (12.9-16.9) g/dL Hct 28.8 L (37.5-50.1) % Plt Count 212 (140-400) K/mcL Neutrophils # 4.2 (1.6-8.9) K/mcL BMP 01/16/18 01/16/18 08:38 10:14 Sodium Corrected Result L* 139 D Potassium Corrected Result L* 4.6 D Chloride Corrected Result L 106 Carbon Dioxide Corrected Result L* 25 BUN Corrected Result L 24 H Creatinine Corrected Result L 1.48 H Glucose Corrected Result L* 165 H Calcium Corrected Result L* 9.4 - ABG Interpretation ABG results: PT/INR, D-dimer PT 13.9 Seconds (9.4-12.1) H 01/16/18 01:12 - VTE Documentation of Mechanical Device: Intermittent pneumatic compression device Consult Discharge Plan - Plan Referrals: Jaime Paula MD [Primary Care Provider] - (1) Osteomyelitis of right foot Qualifiers: Osteomyelitis type: other acute Qualified Code(s): M86.171 - Other acute osteomyelitis, right ankle and foot (4) A-fib Qualifiers: Atrial fibrillation type: chronic Qualified Code(s): I48.2 - Chronic atrial fibrillation (6) Charcot's joint of foot Qualifiers: Laterality: right Qualified Code(s): M14.671 - Charcot's joint, right ankle and foot (7) Type 2 diabetes mellitus Qualifiers: Diabetes mellitus penitentiary insulin use: without oysterman use Diabetes mellitus complication status: with skin complications Diabetes mellitus complication detail: with foot ulcer Qualified Code(s): E11.621 - Type 2 diabetes mellitus with foot ulcer; L97.509 - Non-pressure chronic ulcer of other part of unspecified foot with unspecified severity (9) CHF (congestive heart failure) Qualifiers: Heart failure type: unspecified
--- NOTE | 2018-01-16 17:40 | Infectious Disease Progress No ---
Date of Encounter: 01/16/18 Time of Encounter: 10:40 - Assessment and Plan (1) Osteomyelitis of right foot Current Visit: Yes Status: Acute Location: Right cuboid bone. Causative organism: MRSA per wound culture. Previous wound cultures have grown E. cloacae on multiple occasions. Likely secondary to chronic DFU to the plantar aspect of the right foot. MRI of the right foot showed new osteomyelitis of the cuboid bone. ESR 62, CRP 17. Blood cultures obtained 01/05/18 are negative x 2 sets. Podiatry consulted and following. Status post bone biopsy 01/12/18. Cultures are negative so far. Pathology is pending. Wound care and activity per the podiatry team. The patient's reported drug allergies limit what medications we can use. Continue Levaquin 750mg IV daily. The patient has a documented allergy to Levaquin, but he has taken it previously in the past and tolerated the IV form without a problem. He did have nausea and vomiting to the PO form. Continue Daptomycin 6mg/kg IV daily. The patient had a possible reaction to Vancomycin previously. Repeat CK level 35 today. Discontinue Lipitor while on Dapto. Duration of treatment depends on the clinical picture, but likely a total of six weeks of IV antibiotics. Await cultures. De-escalate antibiotics if/when able. Monitor renal function and dose-adjust antibiotics. Consult VAT for IV line placement once final antibiotic regimen is determined. technical services manager to assist with discharge planning. Additional lab and OPAT recommendations to follow pending culture and clinical outcomes. MRSA precautions per protocol. Qualifiers: Osteomyelitis type: other acute Qualified Code(s): M86.171 - Other acute osteomyelitis, right ankle and foot (2) Cellulitis of plantar aspect of foot Current Visit: Yes Status: Acute Location: Plantar aspect of the right foot. Causative organism: Unclear. Secondary to non-healing DFU. Clinically improved based on previous skin markings. Continue antibiotics as above. (3) Pvngk-cj-[id number] kidney injury Current Visit: No Status: Acute Improved. Continue to trend. Dose-adjust antibiotics. Avoid nephrotoxins. Strict I's and O's. Qualifiers: Acute renal failure type: unspecified Chronic kidney disease stage: stage 4 (severe) Qualified Code(s): N17.9 - Acute kidney failure, unspecified; N18.4 - Chronic kidney disease, stage 4 (severe) (4) Diabetic foot ulcer Current Visit: No Status: Acute Location: Plantar aspect of the right foot. Chronic, ongoing for two years per the patient. Likely secondary to Charcot foot deformity. Wound care per Podiatry. Qualifiers: Diabetic foot ulcer location: other Diabetes mellitus type: type 2 Laterality: right Non-pressure ulcer stage: unspecified non-pressure ulcer stage Qualified Code(s): E11.621 - Type 2 diabetes mellitus with foot ulcer; L97.519 - Non-pressure chronic ulcer of other part of right foot with unspecified severity (5) Allergy to multiple antibiotics Current Visit: No Status: Acute Had a pretty aggressive rash and breathing problem with vancomycin. He has taken vancomycin in the past. Unlikely "red man" syndrome. (6) Charcot's joint of foot Current Visit: Yes Status: Acute Qualifiers: Laterality: right Qualified Code(s): M14.671 - Charcot's joint, right ankle and foot (7) H/O deep venous thrombosis Current Visit: Yes Status: Acute (8) History of pulmonary embolism Current Visit: No Status: Acute (9) Morbid obesity with BMI of 50.0-59.9, adult Current Visit: No Status: Chronic (10) Type 2 diabetes mellitus Current Visit: No Status: Acute HgbA1C 7.9% in October. Recommend aggressive glucose monitoring and control to promote wound healing and prevent re-infection. Management per the primary team. Qualifiers: Diabetes mellitus extermination inspector insulin use: without extermination inspector use Diabetes mellitus complication status: with skin complications Diabetes mellitus complication detail: with foot ulcer Qualified Code(s): E11.621 - Type 2 diabetes mellitus with foot ulcer; L97.509 - Non-pressure chronic ulcer of other part of unspecified foot with unspecified severity (11) A-fib Current Visit: No Status: Chronic Qualifiers: Atrial fibrillation type: chronic Qualified Code(s): I48.2 - Chronic atrial fibrillation - Subjective Interval history: Patient seen and examined. No acute events noted overnight. Patient sitting up in bed. States overall he feels well. Denies fevers, chills, or rigors. Denies chest pain, shortness of breath, or cough. Denies nausea, vomiting, diarrhea. Reports loose BM x 3 daily. Denies abdominal pain, urinary complaints, or appetite changes. Denies oral thrush or new skin lesions. Status post bone biopsy 01/12/18. Infect Dis PN-Objective Data - Labs CBC & Chem 7: 01/16/18 08:38 01/16/18 10:14 Labs: Laboratory Results - last 24 hr 01/14/18 01/14/18 01/14/18 07:58 11:20 16:27 WBC RBC Hgb Hct MCV MCH MCHC RDW Plt Count MPV Immature Gran % Seg Neutrophils % Lymphocytes % Monocytes % Eosinophils % Basophils % Neutrophils # Lymphocytes # Monocytes # Eosinophils # Basophils # Immature Plt Fraction PT INR Heparin Anti-Xa, Unfract Sodium Potassium Chloride Carbon Dioxide BUN Creatinine Est GFR ( Amer) Est GFR (Non-Af Amer) BUN/Creatinine Ratio Glucose POC Glucose 135 H 174 H 194 H Calculated Osmolality Calcium Creatine Kinase Specimen Rejected 01/14/18 01/15/18 01/15/18 20:44 07:27 10:47 WBC RBC Hgb Hct MCV MCH MCHC RDW Plt Count MPV Immature Gran % Seg Neutrophils % Lymphocytes % Monocytes % Eosinophils % Basophils % Neutrophils # Lymphocytes # Monocytes # Eosinophils # Basophils # Immature Plt Fraction PT INR Heparin Anti-Xa, Unfract Sodium Potassium Chloride Carbon Dioxide BUN Creatinine Est GFR ( Amer) Est GFR (Non-Af Amer) BUN/Creatinine Ratio Glucose POC Glucose 214 H 108 H 149 H Calculated Osmolality Calcium Creatine Kinase Specimen Rejected 01/16/18 01/16/18 01/16/18 01:12 08:38 08:38 WBC 8.6 RBC 3.15 L Hgb 9.0 L Hct 28.8 L MCV 91.4 MCH 28.6 MCHC 31.3 L RDW 15.5 H Plt Count 212 MPV 10.9 Immature Gran % 0.6 Seg Neutrophils % 49.0 Lymphocytes % 35.1 Monocytes % 7.2 Eosinophils % 7.6 Basophils % 0.5 Neutrophils # 4.2 Lymphocytes # 3.0 Monocytes # 0.6 Eosinophils # 0.7 H Basophils # 0.0 Immature Plt Fraction 5.8 PT 13.9 H INR 1.2 Heparin Anti-Xa, Unfract 0.70 Sodium Corrected Result L* Potassium Corrected Result L* Chloride Corrected Result L Carbon Dioxide Corrected Result L* BUN Corrected Result L Creatinine Corrected Result L Est GFR ( Amer) Corrected Result L Est GFR (Non-Af Amer) Corrected Result L BUN/Creatinine Ratio Corrected Result L Glucose Corrected Result L* POC Glucose Calculated Osmolality Corrected Result L Calcium Corrected Result L* Creatine Kinase Corrected Result L Specimen Rejected 01/16/18 01/16/18 08:38 10:14 WBC RBC Hgb Hct MCV MCH MCHC RDW Plt Count MPV Immature Gran % Seg Neutrophils % Lymphocytes % Monocytes % Eosinophils % Basophils % Neutrophils # Lymphocytes # Monocytes # Eosinophils # Basophils # Immature Plt Fraction PT INR Heparin Anti-Xa, Unfract Sodium 139 D Potassium 4.6 D Chloride 106 Carbon Dioxide 25 BUN 24 H Creatinine 1.48 H Est GFR ( Amer) > 60 Est GFR (Non-Af Amer) 50 L BUN/Creatinine Ratio 16 Glucose 165 H POC Glucose Calculated Osmolality 296 Calcium 9.4 Creatine Kinase 35 Specimen Rejected Contaminated Cultures: Cultures 01/12/18 18:30 Wound Culture - Final Right Foot No growth. 01/12/18 18:30 Acid Fast Stain - Final Right Foot 01/08/18 12:50 Wound Culture - Final Right Foot Methicillin Resistant S.aureus Serology 01/08/18 Range/Units 22:00 Nasal Screen MRSA (PCR) Negative (Negative) Exam - Constitutional Vitals: Temp Pulse Resp BP Pulse Ox 98.0 F 79 15 116/73 97 01/16/18 14:26 01/16/18 14:26 01/16/18 14:26 01/16/18 14:26 01/16/18 14:26 General appearance: cooperative, morbidly obese, no acute distress - Head Head exam: Present: atraumatic, normal inspection, normocephalic - Eye Eye exam: Present: EOMI, normal appearance, PERRL Pupils: Present: normal accommodation - ENT ENT exam: Present: mucous membranes moist - Neck Neck exam: Present: normal inspection - Respiratory Respiratory exam: Present: CTAB. Absent: rales, respiratory distress, rhonchi, wheezes - Cardiovascular Cardiovascular exam: Present: irregular rhythm. Absent: tachycardia - GI/Abdominal GI/Abdominal exam: Present: distended (obese), normal bowel sounds, soft. Absent: tenderness - Extremities Exam Extremities exam: Present: pedal edema (1+ BLE). Absent: normal inspection ( Venous stasis dermatitis noted to the BLE), tenderness Additional comments: Right foot dressing C/D/I. - Neurological Exam Neurological exam: Present: alert, oriented X3, no focal deficits - Psychiatric Psychiatric exam: Present: normal affect, normal mood - Skin Skin exam: Present: dry, intact, normal color, warm - VTE Documentation of Mechanical Device: Intermittent pneumatic compression device Consult Discharge Plan - Plan Referrals: Jaime Paula MD [Primary Care Provider] - - Attending Attestation I examined this patient and my medical decision-making was reviewed with the Resident Physician. I agree with the documented findings, disposition and treatment plan as described except to the extent set forth below.
[2018-01-16] MEDS ORDERED: *HR* Warfarin 4 MG TABLET PO ONE (18:00)
[2018-01-16] MEDS: Warfarin perPT PO SCH (18:13)
[2018-01-17] MEDS: Heparin 25,000 UNIT/500 ML D5W 25,000 UNIT/500 ML BAG IVC SCH ×5 (01:17→20:22)
[2018-01-17 01:38] LABS: Basophils # 0.1 K/mcL (0.0-0.2); Basophils % 0.5 %; Eosinophils # 0.6 K/mcL (0.0-0.6); Eosinophils % 5.6 %; Hematocrit 32.5 % (37.5-50.1); Hemoglobin 10.2 g/dL (12.9-16.9); Immature Granulocytes % 0.4 % (0-4); Lymphocytes # 3.9 K/mcL (0.6-4.6); Lymphocytes % 37.9 %; Mean Corpuscular HGB Conc 31.4 g/dL (31.6-35.5); Mean Corpuscular Hemoglobin 28.3 pg (28.0-33.3); Mean Platelet Volume 11.1 fL (9.4-12.4); Monocytes # 0.7 K/mcL (0.0-1.3); Monocytes % 6.8 %; Platelet Count 234 K/mcL (140-400); Red Blood Count 3.61 M/mcL (4.19-5.50); Red Cell Distribution Width 15.3 % (11.5-14.5); Segmented Neutrophils % 48.8 %
[2018-01-17 01:46] LABS: INR 1.2; Prothrombin Time 13.9 Seconds (9.4-12.1)
[2018-01-17 01:53] LABS: Calcium 9.2 mg/dL (8.6-10.3); Potassium 4.4 mEq/L (3.5-5.1)
[2018-01-17] MEDS: Insulin LISPRO 300 UNITS/3 ML VIAL SQ SCH ×3 (07:48→17:12)
[2018-01-17] MEDS: Lisinopril 20 MG TABLET PO SCH (09:25)
[2018-01-17] MEDS: Loratadine 10 MG TABLET PO SCH (09:25)
[2018-01-17] MEDS: Insulin DETEMIR 100 UNIT/ML X5UNITS SQ SCH ×2 (09:26→20:32)
[2018-01-17] MEDS: Levofloxacin 750 MG/150 ML 750 MG/150 ML BAG IVPB SCH (09:26)
--- NOTE | 2018-01-17 14:35 | Podiatry Progress Note ---
Date of Encounter: 01/17/18 Time of Encounter: 12:00 - Assessment and Plan (1) Cellulitis of plantar aspect of foot Current Visit: Yes Status: Acute Packing removed, flushed with saline No appearance of cellulitis. Mild warmth. No ascending edema, erythema or warmth. Bone biopsy resulted showing no evidence of osteomyelitis or osteonecrosis Minimal serous drainage noted to wound at this time Repacked wound with mesalt and applied thick bulk dressing and IAIN ID on board Continue Levaquin 750mg IV daily at this time as recommended per ID- Will need daily dressing changes with mesalt packing and bulk dressing Will need to have appointment made to be seen in wound care clinic with 1 week following discharge Will continue to monitor closely. May be discharged when stable and antibiotics as well as dressing changes have been arranged. wbc 10.2 temp 97/5 Subjective Interval history: Mr. Jones is a 52 year old diabetic male with a history of Charcot who came to ED with complaints of worsening pain and redness of foot. An abscess was lanced open per and packing was placed to wound. subsequently patient underwent a bone biopsy on 01/12. Patient reports that foot feels much better today. Patient is currently receiving IV antibiotics. Patient denies any known fevers, chills, n/v or flu like symptoms. Dressing to foot CDI. Objective - Vital Signs Vital Signs: Vital Signs Temp Pulse Resp BP Pulse Ox 01/17/18 10:34 97.5 F L 74 15 143/85 94 01/17/18 07:07 97.3 F L 75 15 134/80 94 01/17/18 03:54 97.7 F 72 17 120/54 94 01/17/18 01:01 97.9 F 76 17 110/53 94 01/16/18 20:03 97.9 F 77 17 122/64 93 Intake and Output 01/16/18 01/17/18 01/17/18 23:59 07:59 15:59 Intake Total 120 / 120 590 / 590 1050 / 1050 Balance 120 / 120 590 / 590 1050 / 1050 Intake: IV Fluids 590 / 590 210 / 210 Heparin 25,000 UNIT/500 ML D5W 590 / 590 210 / 210 25,000 unit In 500 ml @ 14 UNIT /KG/HR 48.77 mls/hr IVC . [id number] MONICA Rx#:[id number] Oral 120 / 120 840 / 840 Other: Meal Dinner Lunch Percent of Meal Consumed 100% 100% # Voids 2 Weight 166.65 kg Blood Glucose* 168 117 168 Patient Weight 01/17/18 23:59 Weight 166.65 kg - Exam Exam: General Examination: CONSTITUTIONAL: Alert, oriented, in no acute distress, non-toxic. EXTREMITIES: CFT 3 seconds all toes. Edema +1 and pedal pulses palpable. SKIN: Skin with decreased turgor, decreased subcutaneous tissue, skin thin and shiny with trophic changes associated with comorbidities as described in history.. Open - created ulceration noted to plantar aspect of right foot as made to release abscess formation and s.p bone biopsy. Surrounding edema and erythema has resolved since previous exam. Patient reports his foot does look better to him. very scant serous drainage noted. . [id number] depth. No odor. NEUROLOGIC: Minimal sensation to light or moderate touch MUSCULOSKELETAL: Charcot deformity of right foot - Lab Result Diagrams: 01/17/18 01:24 01/17/18 01:24 Labs: Abnormal lab results RBC 3.61 M/mcL (4.19-5.50) L 01/17/18 01:24 Hgb 10.2 g/dL (12.9-16.9) L 01/17/18 01:24 Hct 32.5 % (37.5-50.1) L 01/17/18 01:24 MCHC 31.4 g/dL (31.6-35.5) L 01/17/18 01:24 RDW 15.3 % (11.5-14.5) H 01/17/18 01:24 ESR 62 mm/hr (0-10) H 01/09/18 01:31 PT 13.9 Seconds (9.4-12.1) H 01/17/18 01:24 Chloride 108 mEq/L (98-107) H 01/17/18 01:24 BUN 25 mg/dL (6-20) H 01/17/18 01:24 Creatinine 1.53 mg/dL (0.70-1.30) H 01/17/18 01:24 Est GFR ( Amer) 58 (> 60) L 01/17/18 01:24 Est GFR (Non-Af Amer) 48 (> 60) L 01/17/18 01:24 Glucose 142 mg/dL (70-105) H 01/17/18 01:24 POC Glucose 117 mg/dL (70-99) H 01/17/18 07:04 Phosphorus 4.8 mg/dL (2.7-4.5) H 01/15/18 01:27 C-Reactive Protein 17 mg/L (Less than 10) H 01/09/18 01:31 Serum Total Protein 6.3 g/dL (6.4-8.9) L 01/06/18 04:44 Microbiology, Last 48 Hours 01/12/18 18:30 Anaerobic Culture - Preliminary Right Foot At this time, no anaerobic growth is present. The culture will be finalized after 5 days of incubation. 01/12/18 18:30 Wound Culture - Final Right Foot No growth. - VTE Documentation of Mechanical Device: Intermittent pneumatic compression device Consult Discharge Plan - Plan Referrals: Jaime Paula MD [Primary Care Provider] - Lee Jorge MD [Partnered Physician] - 02/01/18 1:50 pm
[2018-01-17] MEDS: DAPTOmycin 1,000 MG in 0.9 % Sodium Chloride 100 ML IVPB SCH (15:28)
--- NOTE | 2018-01-17 16:02 | Internal Med Progress Note ---
Hospitalist Progress Note - Encounter Date of Encounter: 01/17/18 Time of Encounter: 10:30 - Subjective Interval History: No pain in right foot. No fevers or chills. he is comfortable and has no complaints - Exam Vitals: Temp Pulse Resp BP Pulse Ox 97.5 F L 74 15 143/85 94 01/17/18 10:34 01/17/18 10:34 01/17/18 10:34 01/17/18 10:34 01/17/18 10:34 Exam: General: awake, alert, appears stated age, obese Cardiovascular:regular rate and rhythm, normal S1 & S2, no rubs, murmurs or gallops. no pitting lower extremity edema, warm feet bl Lungs:Normal breath sounds, no wheezes, or crackles. Normal respiratory effort Extremities:RLE knee, ankle, toes rom intact and painless Neurological: AAOx3, , bl foot decreased sensation to light touch Skin:Normal color, no rash, no pallor, RLE foot is bandaged with dressing clean , dry, intact - Assessment and Plan (1) Osteomyelitis of right foot Current Visit: Yes Status: Acute Assessment and Plan: Podiatry and ID following. Scheduled for bone biopsy 01/12 by podiatry. -Continue daptomycin and levaquin per ID recs. Will likely need 6 weeks of IV antibiotics. -Wound cultures growing MRSA and patient is allergic to vancomycin -Follow up cultures. continue IV antibiotics and ID recs for discharge planning pending bone biopsy cultures -will notify Mita of Case management of cx results to set up home infusions (2) Cellulitis of plantar aspect of foot Current Visit: Yes Status: Acute Assessment and Plan: Non healing ulcer with associated cellulitis. Failure of outpatient treatment with ciprofloxacin - Patient received Vancomycin in ER with allergic reaction of itching, SOB and apprehension. c -continue on daptomycin and levaquin -ID following -Podiatry obtained bone bx -pending bone bx results -will then fu ID recs for abx on dc (3) History of pulmonary embolism Current Visit: No Status: Chronic Assessment and Plan: On coumadin at home. Resume warfarin with heparin bridging. 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 Continue antibiotics (7) Type 2 diabetes mellitus Current Visit: No Status: Chronic Assessment and Plan: Will continue levemir (decreased dose of home insulin) and monitor for now, SSI and accu checks (8) KELSY (acute kidney injury) Current Visit: No Status: Acute Assessment and Plan: Creat peaked at 1.6, variable since that time creat on admit 1.34 and overall down trending toward that value -avoid nephro toxic agents as best as can -renally dose abx as needed (9) CHF (congestive heart failure) Current Visit: Yes Status: Chronic Assessment and Plan: - Has diastolic CHF as per last ECHO, NOT in acute exacerbation - Continue home coreg, statin -lasix held while monitoring for creat improvement - c/w lisinopril for HTN (10) H/O deep venous thrombosis Current Visit: Yes Status: Chronic Assessment and Plan: On heparin drip briding to therapeutic warfarin -pharm managing DVT Prophylaxis: heparin bridge to therapeutic INR on coumadin - Time Spent with Patient Total time spent is greater than 50% in coordination of care (as documented) at patient's floor/unit and/or counseling patient: 25 - 35 minutes Plan of Care Discussed with: patient Internal Medicine: Result - Labs CBC & Chem 7: 01/17/18 01:24 01/17/18 01:24 Labs: Short CBC 01/17/18 Range/Units 01:24 WBC 10.2 (4.3-11.1) K/mcL Hgb 10.2 L (12.9-16.9) g/dL Hct 32.5 L (37.5-50.1) % Plt Count 234 (140-400) K/mcL Neutrophils # 5.0 (1.6-8.9) K/mcL BMP 01/17/18 01:24 Sodium 139 Potassium 4.4 Chloride 108 H Carbon Dioxide 25 BUN 25 H Creatinine 1.53 H Glucose 142 H Calcium 9.2 - ABG Interpretation ABG results: PT/INR, D-dimer PT 13.9 Seconds (9.4-12.1) H 01/17/18 01:24 - VTE Documentation of Mechanical Device: Intermittent pneumatic compression device Consult Discharge Plan - Plan Referrals: Jaime Paula MD [Primary Care Provider] - (1) Osteomyelitis of right foot Qualifiers: Osteomyelitis type: other acute Qualified Code(s): M86.171 - Other acute osteomyelitis, right ankle and foot (4) A-fib Qualifiers: Atrial fibrillation type: chronic Qualified Code(s): I48.2 - Chronic atrial fibrillation (6) Charcot's joint of foot Qualifiers: Laterality: right Qualified Code(s): M14.671 - Charcot's joint, right ankle and foot (7) Type 2 diabetes mellitus Qualifiers: Diabetes mellitus fci insulin use: without fci use Diabetes mellitus complication status: with skin complications Diabetes mellitus complication detail: with foot ulcer Qualified Code(s): E11.621 - Type 2 diabetes mellitus with foot ulcer; L97.509 - Non-pressure chronic ulcer of other part of unspecified foot with unspecified severity (9) CHF (congestive heart failure) Qualifiers: Heart failure type: unspecified Heart failure chronicity: chronic Qualified Code(s): I50.9 - Heart failure, unspecified
--- NOTE | 2018-01-17 16:39 | Infectious Disease Progress No ---
Date of Encounter: 01/17/18 Time of Encounter: 12:00 - Assessment and Plan (1) Osteomyelitis of right foot Current Visit: Yes Status: Acute Location: Right cuboid bone. Causative organism: MRSA per wound culture. Previous wound cultures have grown E. cloacae on multiple occasions. Likely secondary to chronic DFU to the plantar aspect of the right foot. MRI of the right foot showed new osteomyelitis of the cuboid bone. ESR 62, CRP 17. Blood cultures obtained 01/05/18 are negative x 2 sets. Podiatry consulted and following. Status post bone biopsy 01/12/18. Cultures are negative so far. Pathology is pending. Wound care and activity per the podiatry team. The patient's reported drug allergies limit what medications we can use. Continue Levaquin 750mg IV daily. The patient has a documented allergy to Levaquin, but he has taken it previously in the past and tolerated the IV form without a problem. He did have nausea and vomiting to the PO form. Continue Daptomycin 6mg/kg IV daily. The patient had a possible reaction to Vancomycin previously. Repeat CK level 35. Discontinue Lipitor while on Dapto. Duration of treatment depends on the clinical picture, but likely a total of six weeks of IV antibiotics. Monitor renal function and dose-adjust antibiotics. Consult VAT for IV line placement. office services manager to assist with discharge planning. MRSA precautions per protocol. Will need weekly CBC, BUN/Cr, ESR, CRP, and CK level. Will need weekly midline care per protocol. Follow up with ID 02/01/18 at 1350. Qualifiers: Osteomyelitis type: other acute Qualified Code(s): M86.171 - Other acute osteomyelitis, right ankle and foot (2) Cellulitis of plantar aspect of foot Current Visit: Yes Status: Acute Location: Plantar aspect of the right foot. Causative organism: Unclear. Secondary to non-healing DFU. Clinically improved based on previous skin markings. Continue antibiotics as above. (3) [id number]-[id number] kidney injury Current Visit: No Status: Acute Improved. Continue to trend. Dose-adjust antibiotics. Avoid nephrotoxins. Strict I's and O's. Qualifiers: Acute renal failure type: unspecified Chronic kidney disease stage: stage 4 (severe) Qualified Code(s): N17.9 - Acute kidney failure, unspecified; N18.4 - Chronic kidney disease, stage 4 (severe) (4) Diabetic foot ulcer Current Visit: No Status: Acute Location: Plantar aspect of the right foot. Chronic, ongoing for two years per the patient. Likely secondary to Charcot foot deformity. Wound care per Podiatry. Qualifiers: Diabetic foot ulcer location: other Diabetes mellitus type: type 2 Laterality: right Non-pressure ulcer stage: unspecified non-pressure ulcer stage Qualified Code(s): E11.621 - Type 2 diabetes mellitus with foot ulcer; L97.519 - Non-pressure chronic ulcer of other part of right foot with unspecified severity (5) Allergy to multiple antibiotics Current Visit: No Status: Acute Had a pretty aggressive rash and breathing problem with vancomycin. He has taken vancomycin in the past. Unlikely "red man" syndrome. (6) Charcot's joint of foot Current Visit: Yes Status: Chronic Qualifiers: Laterality: right Qualified Code(s): M14.671 - Charcot's joint, right ankle and foot (7) H/O deep venous thrombosis Current Visit: Yes Status: Chronic (8) History of pulmonary embolism Current Visit: No Status: Chronic (9) Morbid obesity with BMI of 50.0-59.9, adult Current Visit: No Status: Chronic (10) Type 2 diabetes mellitus Current Visit: No Status: Chronic HgbA1C 7.9% in October. Recommend aggressive glucose monitoring and control to promote wound healing and prevent re-infection. Management per the primary team. Qualifiers: Diabetes mellitus nursing home insulin use: without nursing home use Diabetes mellitus complication status: with skin complications Diabetes mellitus complication detail: with foot ulcer Qualified Code(s): E11.621 - Type 2 diabetes mellitus with foot ulcer; L97.509 - Non-pressure chronic ulcer of other part of unspecified foot with unspecified severity (11) A-fib Current Visit: No Status: Chronic Qualifiers: Atrial fibrillation type: chronic Qualified Code(s): I48.2 - Chronic atrial fibrillation - Subjective Interval history: Patient seen and examined. No acute events noted overnight. Patient sitting up in bed. States overall he feels well. Denies fevers, chills, or rigors. Denies chest pain, shortness of breath, or cough. Denies nausea, vomiting, diarrhea. Reports loose BM x 2 daily. Denies abdominal pain, urinary complaints, or appetite changes. Denies oral thrush or new skin lesions. Status post bone biopsy 01/12/18. Infect Dis PN-Objective Data - Labs CBC & Chem 7: 01/17/18 01:24 01/18/18 04:00 Labs: Laboratory Results - last 24 hr 01/16/18 01/16/18 01/16/18 07:37 10:52 15:56 WBC RBC Hgb Hct MCV MCH MCHC RDW Plt Count MPV Immature Gran % Seg Neutrophils % Lymphocytes % Monocytes % Eosinophils % Basophils % Neutrophils # Lymphocytes # Monocytes # Eosinophils # Basophils # PT INR Heparin Anti-Xa, Unfract Sodium Potassium Chloride Carbon Dioxide BUN Creatinine Est GFR ( Amer) Est GFR (Non-Af Amer) BUN/Creatinine Ratio Glucose POC Glucose 112 H 176 H 154 H Calculated Osmolality Calcium 01/16/18 01/17/18 01/17/18 20:07 01:24 01:24 WBC RBC Hgb Hct MCV MCH MCHC RDW Plt Count MPV Immature Gran % Seg Neutrophils % Lymphocytes % Monocytes % Eosinophils % Basophils % Neutrophils # Lymphocytes # Monocytes # Eosinophils # Basophils # PT 13.9 H INR 1.2 Heparin Anti-Xa, Unfract 0.74 H Sodium Potassium Chloride Carbon Dioxide BUN Creatinine Est GFR ( Amer) Est GFR (Non-Af Amer) BUN/Creatinine Ratio Glucose POC Glucose 168 H Calculated Osmolality Calcium 01/17/18 01/17/18 01/17/18 01:24 01:24 07:04 WBC 10.2 RBC 3.61 L Hgb 10.2 L Hct 32.5 L MCV 90.0 MCH 28.3 MCHC 31.4 L RDW 15.3 H Plt Count 234 MPV 11.1 Immature Gran % 0.4 Seg Neutrophils % 48.8 Lymphocytes % 37.9 Monocytes % 6.8 Eosinophils % 5.6 Basophils % 0.5 Neutrophils # 5.0 Lymphocytes # 3.9 Monocytes # 0.7 Eosinophils # 0.6 Basophils # 0.1 PT INR Heparin Anti-Xa, Unfract Sodium 139 Potassium 4.4 Chloride 108 H Carbon Dioxide 25 BUN 25 H Creatinine 1.53 H Est GFR ( Amer) 58 L Est GFR (Non-Af Amer) 48 L BUN/Creatinine Ratio 16 Glucose 142 H POC Glucose 117 H Calculated Osmolality 295 Calcium 9.2 01/17/18 11:00 WBC RBC Hgb Hct MCV MCH MCHC RDW Plt Count MPV Immature Gran % Seg Neutrophils % Lymphocytes % Monocytes % Eosinophils % Basophils % Neutrophils # Lymphocytes # Monocytes # Eosinophils # Basophils # PT INR Heparin Anti-Xa, Unfract 0.69 Sodium Potassium Chloride Carbon Dioxide BUN Creatinine Est GFR ( Amer) Est GFR (Non-Af Amer) BUN/Creatinine Ratio Glucose POC Glucose Calculated Osmolality Calcium Cultures: Cultures 01/12/18 18:30 Anaerobic Culture - Preliminary Right Foot At this time, no anaerobic growth is present. The culture will be finalized after 5 days of incubation. 01/12/18 18:30 Wound Culture - Final Right Foot No growth. 01/12/18 18:30 Acid Fast Stain - Final Right Foot 01/08/18 12:50 Wound Culture - Final Right Foot Methicillin Resistant S.aureus Serology 01/08/18 Range/Units 22:00 Nasal Screen MRSA (PCR) Negative (Negative) Exam - Constitutional Vitals: Temp Pulse Resp BP Pulse Ox 97.5 F L 74 15 143/85 94 01/17/18 10:34 01/17/18 10:34 01/17/18 10:34 01/17/18 10:34 01/17/18 10:34 General appearance: cooperative, morbidly obese, no acute distress - Head Head exam: Present: atraumatic, normal inspection, normocephalic - Eye Eye exam: Present: EOMI, normal appearance, PERRL Pupils: Present: normal accommodation - ENT ENT exam: Present: mucous membranes moist - Neck Neck exam: Present: normal inspection - Respiratory Respiratory exam: Present: CTAB. Absent: rales, respiratory distress, rhonchi, wheezes - Cardiovascular Cardiovascular exam: Present: irregular rhythm, +S1, +S2. Absent: tachycardia - GI/Abdominal GI/Abdominal exam: Present: distended (obese), normal bowel sounds, soft. Absent: tenderness - Extremities Exam Extremities exam: Present: pedal edema (1+ RLE). Absent: joint swelling, normal inspection (Venous stasis dermatitis noted to the BLE), tenderness Additional comments: Right foot dressing C/D/I. - Neurological Exam Neurological exam: Present: alert, oriented X3, no focal deficits - Psychiatric Psychiatric exam: Present: normal affect, normal mood - Skin Skin exam: Present: dry, intact, normal color, warm - VTE Documentation of Mechanical Device: Intermittent pneumatic compression device Consult Discharge Plan - Plan Referrals: Jaime Paula MD [Primary Care Provider] - Lee Jroge MD [Partnered Physician] - 02/01/18 1:50 pm - Attending Attestation I examined this patient and my medical decision-making was reviewed with the Resident Physician. I agree with the documented findings, disposition and treatment plan as described except to the extent set forth below.
[2018-01-17] MEDS: Warfarin perPT PO SCH (17:13)
[2018-01-17] MEDS ORDERED: *HR* Warfarin 10 MG TABLET PO ONE (18:00)
[2018-01-18 06:40] LABS: INR 1.3; Prothrombin Time 14.7 Seconds (9.4-12.1)
[2018-01-18 07:55] LABS: Calcium 8.9 mg/dL (8.6-10.3); Potassium 4.2 mEq/L (3.5-5.1)
[2018-01-18] MEDS: Insulin LISPRO 300 UNITS/3 ML VIAL SQ SCH ×3 (08:25→16:50)
[2018-01-18] MEDS: Lisinopril 20 MG TABLET PO SCH (08:26)
[2018-01-18] MEDS: Loratadine 10 MG TABLET PO SCH (08:26)
[2018-01-18] MEDS: Levofloxacin 750 MG/150 ML 750 MG/150 ML BAG IVPB SCH (08:27)
[2018-01-18] MEDS: Insulin DETEMIR 100 UNIT/ML X5UNITS SQ SCH (08:28)
--- NOTE | 2018-01-18 13:37 | Discharge Summary ---
- NOTES TO OUTPATIENT PROVIDER Notes to Outpatient Provider: he was dx w/ osteolyelitis intitially, though bone bx came back as negative. He has completed course of treatment for cellulitis. He does not need to follow up with ID, just podiatry/the wound clinic. Of note, his INR was sub therapeutic. he needs to follow up with the coumadin clinic and is being rx a lovenox bridge on dc. Creat elevated to 1.6 this admit, down into 1.5s and stable. recommend bmp on follow up Orders not resulted at time of discharge: Pending orders 01/12/18 18:30 AFB Culture, Tissue [TB] Routine AFB Smear [TB] Routine 01/18/18 18:00 Heparin anti-factor XA UFH [COAG] Timed 01/19/18 04:00 PT/INR [Prothrombin Time INR] [COAG] AM 0400 01/20/18 04:00 PT/INR [Prothrombin Time INR] [COAG] AM 0400 01/21/18 04:00 PT/INR [Prothrombin Time INR] [COAG] AM 0400 Date of Encounter: 01/18/18 Time of Encounter: 09:30 - Discharge Diagnosis (1) Osteomyelitis of right foot Priority: Primary Status: Ruled-out Assessment and Plan: Podiatry and ID followed. Scheduled for bone biopsy 01/10 by podiatry. Procedure could NOT be preformed that day due to code yellow, [facility] at [facility] that day with OR shut down per discussion with staff whom were treating him at that time. Earliest available OR time was then 01/12 -was empirically on daptomycin and levaquin per ID recs. (Wound cultures grew MRSA and patient is allergic to vancomycin) -bone bx resulted negative 01/18 -no further need for abx Qualifiers: Osteomyelitis type: other acute Qualified Code(s): M86.171 - Other acute osteomyelitis, right ankle and foot (2) Cellulitis of plantar aspect of foot Priority: Primary Status: Resolved Assessment and Plan: Non healing ulcer with associated cellulitis. Failure of outpatient treatment with ciprofloxacin - Patient received Vancomycin in ER with allergic reaction of itching, SOB and apprehension. -on daptomycin and levaquin as per ID this admission -Podiatry obtained bone bx 01/12 as above -bone cx neg -d/w Retail Greeter Timbo 9/6 and he has completed course of treatment for cellulitis, ok to dc to home with out wound clinic follow up, podiatry follow up, no abx required (3) History of pulmonary embolism Priority: Secondary Status: Chronic Assessment and Plan: On coumadin at home. 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 (6) Charcot's joint of foot Priority: Secondary Status: Chronic Assessment and Plan: -fu with podiatry outpt Qualifiers: Laterality: right Qualified Code(s): M14.671 - Charcot's joint, right ankle and foot (7) Type 2 diabetes mellitus Priority: Secondary Status: Chronic Assessment and Plan: resume home insulin regimen upon dc Qualifiers: 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 mellitus long chain beamer insulin use: without correction use Diabetes mellitus complication status: with skin complications Diabetes mellitus complication detail: with foot ulcer Qualified Code(s): E11.621 - Type 2 diabetes mellitus with foot ulcer; L97.509 - Non-pressure chronic ulcer of other part of unspecified foot with unspecified severity (8) KELSY (acute kidney injury) Priority: Secondary Status: Acute Assessment and Plan: Creat peaked at 1.6, variable since that time creat on admit 1.34 and overall down trending toward that value -avoided nephro toxic agents as best as can -renally dose abx as needed -fu with pcp on dc for further monitoring (9) CHF (congestive heart failure) Priority: Secondary Status: Chronic Assessment and Plan: - Has diastolic CHF as per last ECHO, NOT in acute exacerbation - Continue home coreg, statin -lasix held while monitoring for creat improvement - c/w lisinopril for HTN -resume home lasix on dc Qualifiers: Heart failure type: unspecified Heart failure chronicity: chronic Qualified Code(s): I50.9 - Heart failure, unspecified (10) H/O deep venous thrombosis Priority: Secondary Status: Chronic Assessment and Plan: see plan above for PE -dc to home on lovenox bridge to therapeutic coumadin and AC clinic follow up Hospital course: Mr. Jones is a 52 year old male who presented from the wound clinic with cellulitis of the right foot which failed to improve with outpt abx. See above diagnoses and treatment for complete course. He was treated empirically for osteomyelitis. bone cxs were negative. Cellulitis resolved and [place] course [place] Warfarin for chronic dvt/pe was held for bone nx. He has subtherapeutic INR and was bridging with heparin managed by pharmacy this admission. Rec is for dc to home with lovenox bridge. he follows at coumadin clinic. He will fu with podiatry and wound clinic and is discharged in stable condition. Discharge discussed with: patient - Time Spent with Patient Total time spent providing and/or coordinating discharge services: Greater than 30 minutes - Discharge Medications Prescriptions: Enoxaparin [Lovenox] 170 mg SQ Q12HCO 14 Days #28 syringe Home Medications: Acetaminophen [Tylenol] 500 mg PO HS 12/02/16 [History] Carvedilol Phosphate [Coreg Cr] 80 mg PO DAILY 12/02/16 [History] Fluticasone/Salmeterol [Advair 250-50 Diskus] 1 each IH BID PRN 12/02/16 [ History] Furosemide [Lasix] 40 mg PO BID 12/02/16 [History] Insulin Glargine,Hum.rec.anlog [Lantus Solostar] 46 units SQ BID 12/02/16 [ History] Metformin HCl [Glucophage] 1,000 mg PO BID 12/02/16 [History] Pentoxifylline 400 mg PO BID 12/02/16 [History] Potassium Chloride 20 meq PO DAILY 12/02/16 [History] Pramipexole [Mirapex] 0.25 mg PO BID 12/02/16 [History] Loratadine [Claritin] 10 mg PO DAILY tablet 11/17/17 [Rx] Albuterol Sulfate [Ventolin Hfa] 2 puff IH Q4H PRN 01/05/18 [History] Atorvastatin [Lipitor] 40 mg PO HS 01/05/18 [History] Insulin LISPRO [HumaLOG] 10 units SQ TIDWM 01/05/18 [History] Lansoprazole [Prevacid] 30 mg PO DAILY 01/05/18 [History] Lisinopril [Zestril] 20 mg PO DAILY 01/05/18 [History] Warfarin [Coumadin] 4 mg PO TU 01/05/18 [History] Warfarin [Coumadin] 8 mg PO SUMOWETHFRSA 01/05/18 [History] Enoxaparin [Lovenox] 170 mg SQ Q12HCO 14 Days #28 syringe 01/18/18 [Rx] Allergies/Adverse Reactions: 3 Allergy/AdvReac Type Severity Reaction Status Date / Time vancomycin Allergy Intermediate Itching Verified 01/05/18 19:34 peanut Allergy Anaphylaxis Verified 03/25/17 00:00 cephalexin [From Keflex] AdvReac Rash Verified 03/25/17 00:00 levofloxacin AdvReac Rash Verified 03/25/17 00:00 Sulfa (Sulfonamide AdvReac Rash Verified 03/25/17 00:00 Antibiotics) Date of admission: 01/05/18 18:40 Primary care physician: Jaime Paula MD Consults: 01/08/18 12:12 Consult to Infectious Diseases [CONS] Routine Consulting Provider: Infectious Disease [place] Reason for Consult: antibiotic management Call Completed: Yes 01/17/18 13:33 Consult to Invasive Line Access Team [CONS] Routine Reason for Consult: home atb Line Type: Midline Discharging clinician: Regine Pacheco - Constitutional Vitals: Temp Pulse Resp BP Pulse Ox 97.9 F 76 16 143/70 98 01/18/18 09:41 01/18/18 09:41 01/18/18 09:41 01/18/18 09:41 01/18/18 09:41 General appearance: Present: A&O X 3, obese Exam: General: awake, alert, appears stated age, obese Cardiovascular:regular rate and rhythm, normal S1 & S2, no pitting lower extremity edema, no jvd Lungs:Normal breath sounds, no wheezes, or crackles. Normal respiratory effort Extremities:RLE knee, ankle, toes rom intact and painless Neurological: AAOx3, , bl foot decreased sensation to light touch Skin:Normal color, no rash, no pallor, RLE foot is bandaged with dressing clean , dry, intact - Patient Status Disposition: Home, Self-Care Condition: Good Overall status at discharge: patient is back to baseline - Discharge Instructions Follow Up With: [facility] [Other] - 01/22/18 9:30 am (Please bring your coumadin, and a list of all medications you are on including any over the counter meds. Thank you) Jaime Paula MD [Primary Care Provider] - Lee Jorge MD [Partnered Physician] - 02/01/18 1:50 pm - Diet and Activity Diet: diabetic diet - VTE Documentation of Mechanical Device: Intermittent pneumatic compression device
--- NOTE | 2018-01-18 13:56 | Physician Discharge Referral ---
Home Health/Hosp Referral Info Transfer to: Home Health Provider in Charge Post Discharge: PCP - Diagnosis (1) Osteomyelitis of right foot Priority: Primary Status: Ruled-out (2) Cellulitis of plantar aspect of foot Priority: Primary Status: Resolved (3) History of pulmonary embolism Priority: Secondary Status: Chronic (4) A-fib Priority: Secondary Status: Chronic (5) CKD (chronic kidney disease), stage III Priority: Secondary Status: Chronic (6) Charcot's joint of foot Priority: Secondary Status: Chronic (7) Type 2 diabetes mellitus Priority: Secondary Status: Chronic (8) KELSY (acute kidney injury) Priority: Secondary Status: Acute (9) CHF (congestive heart failure) Priority: Secondary Status: Chronic (10) H/O deep venous thrombosis Priority: Secondary Status: Chronic - Respiratory Orders Smoking Cessation: Smoking cessation has been advised. For more information, call the [place] Tobacco Quit Line at 6-102-TUOG-NOW. - Services Needed Following services are medically necessary services: Nursing, Home Health Aide, Physical Therapy, Occupational Therapy - Transfer Medications Prescriptions: Enoxaparin [Lovenox] 170 mg SQ Q12HCO 14 Days #28 syringe Home Medications: Acetaminophen [Tylenol] 500 mg PO HS 12/02/16 [History] Carvedilol Phosphate [Coreg Cr] 80 mg PO DAILY 12/02/16 [History] Fluticasone/Salmeterol [Advair 250-50 Diskus] 1 each IH BID PRN 12/02/16 [ History] Furosemide [Lasix] 40 mg PO BID 12/02/16 [History] Insulin Glargine,Hum.rec.anlog [Lantus Solostar] 46 units SQ BID 12/02/16 [ History] Metformin HCl [Glucophage] 1,000 mg PO BID 12/02/16 [History] Pentoxifylline 400 mg PO BID 12/02/16 [History] Potassium Chloride 20 meq PO DAILY 12/02/16 [History] Pramipexole [Mirapex] 0.25 mg PO BID 12/02/16 [History] Loratadine [Claritin] 10 mg PO DAILY tablet 11/17/17 [Rx] Albuterol Sulfate [Ventolin Hfa] 2 puff IH Q4H PRN 01/05/18 [History] Atorvastatin [Lipitor] 40 mg PO HS 01/05/18 [History] Insulin LISPRO [HumaLOG] 10 units SQ TIDWM 01/05/18 [History] Lansoprazole [Prevacid] 30 mg PO DAILY 01/05/18 [History] Lisinopril [Zestril] 20 mg PO DAILY 01/05/18 [History] Warfarin [Coumadin] 4 mg PO TU 01/05/18 [History] Warfarin [Coumadin] 8 mg PO SUMOWETHFRSA 01/05/18 [History] Enoxaparin [Lovenox] 170 mg SQ Q12HCO 14 Days #28 syringe 01/18/18 [Rx] Allergies/Adverse Reactions: 3 Allergy/AdvReac Type Severity Reaction Status Date / Time vancomycin Allergy Intermediate Itching Verified 01/05/18 19:34 peanut Allergy Anaphylaxis Verified 03/25/17 00:00 cephalexin [From Keflex] AdvReac Rash Verified 03/25/17 00:00 levofloxacin AdvReac Rash Verified 03/25/17 00:00 Sulfa (Sulfonamide AdvReac Rash Verified 03/25/17 00:00 Antibiotics) Certification: Further, I certify that my clinical findings support that this patient is homebound (i.e. absences from home require considerable and taxing effort and are for medical reasons or buddhist services or infrequently or short duration when for other reasons) because: , charcot foot, cellulitis, chronic wound, hx dvt/pe Homebound Reason: Leaving home requires considerable and taxing effort due to condition Attestation: My signature below is to certify that this patient is under my care and that I, or nurse practitioner, or a physician's assistant food service manager working with me, has a face-to -face encounter with this patient.
[2018-01-18 16:38] VITALS: BP 116/67
[2018-01-18] MEDS: DAPTOmycin 1,000 MG in 0.9 % Sodium Chloride 100 ML IVPB SCH (16:56)
--- NOTE | 2018-01-18 17:39 | Infectious Disease Progress No ---
Date of Encounter: 01/18/18 Time of Encounter: 10:55 - Assessment and Plan (1) Osteomyelitis of right foot Current Visit: Yes Status: Ruled-out Location: Right cuboid bone. Causative organism: MRSA per wound culture. Previous wound cultures have grown E. cloacae on multiple occasions. Likely secondary to chronic DFU to the plantar aspect of the right foot. MRI of the right foot showed new osteomyelitis of the cuboid bone. ESR 62, CRP 17. Blood cultures obtained 01/05/18 are negative x 2 sets. Podiatry consulted and following. Status post bone biopsy 01/12/18. Cultures are negative so far. Pathology is negative for OM. Wound care and activity per the podiatry team. Discussed the case with the podiatry team. Since the cultures and pathology are negative, will plan to treat as cellulitis with 14 days of antibiotics, which the patient has already received. Will stop antibiotics and observe. Okay to discharge and follow up with wound care from ID standpoint. Discontinue Dapto and Levaquin and observe. No further recommendations from the ID team. Will sign off. Please re-consult if needed. Qualifiers: Osteomyelitis type: other acute Qualified Code(s): M86.171 - Other acute osteomyelitis, right ankle and foot (2) Cellulitis of plantar aspect of foot Current Visit: Yes Status: Resolved Location: Plantar aspect of the right foot. Causative organism: Unclear. Secondary to non-healing DFU. Clinically improved based on previous skin markings. Completed 14 days of IV antibiotics. Stop antibiotics and observe. (3) Eavke-pb-pfowukb kidney injury Current Visit: No Status: Resolved Improved. Continue to trend. Dose-adjust antibiotics. Avoid nephrotoxins. Strict I's and O's. Qualifiers: Acute renal failure type: unspecified Chronic kidney disease stage: stage 4 (severe) Qualified Code(s): N17.9 - Acute kidney failure, unspecified; N18.4 - Chronic kidney disease, stage 4 (severe) (4) Diabetic foot ulcer Current Visit: No Status: Acute Location: Plantar aspect of the right foot. Chronic, ongoing for two years per the patient. Likely secondary to Charcot foot deformity. Wound care per Podiatry. Qualifiers: Diabetic foot ulcer location: other Diabetes mellitus type: type 2 Laterality: right Non-pressure ulcer stage: unspecified non-pressure ulcer stage Qualified Code(s): E11.621 - Type 2 diabetes mellitus with foot ulcer; L97.519 - Non-pressure chronic ulcer of other part of right foot with unspecified severity (5) Allergy to multiple antibiotics Current Visit: No Status: Acute Had a pretty aggressive rash and breathing problem with vancomycin. He has taken vancomycin in the past. Unlikely "red man" syndrome. (6) Charcot's joint of foot Current Visit: Yes Status: Chronic Likely contributing to the abnormalities on the MRI and the elevated inflammatory markers. Qualifiers: Laterality: right Qualified Code(s): M14.671 - Charcot's joint, right ankle and foot (7) H/O deep venous thrombosis Current Visit: Yes Status: Chronic (8) History of pulmonary embolism Current Visit: No Status: Chronic (9) Morbid obesity with BMI of 50.0-59.9, adult Current Visit: No Status: Chronic (10) Type 2 diabetes mellitus Current Visit: No Status: Chronic HgbA1C 7.9% in October. Recommend aggressive glucose monitoring and control to promote wound healing and prevent re-infection. Management per the primary team. Qualifiers: Diabetes mellitus custodial insulin use: without termite control technician use Diabetes mellitus complication status: with skin complications Diabetes mellitus complication detail: with foot ulcer Qualified Code(s): E11.621 - Type 2 diabetes mellitus with foot ulcer; L97.509 - Non-pressure chronic ulcer of other part of unspecified foot with unspecified severity (11) A-fib Current Visit: No Status: Chronic Qualifiers: Atrial fibrillation type: chronic Qualified Code(s): I48.2 - Chronic atrial fibrillation - Subjective Interval history: Patient seen and examined. No acute events noted overnight. Patient sitting up in bed. States overall he feels well. Denies fevers, chills, or rigors. Denies chest pain, shortness of breath, or cough. Denies nausea, vomiting, diarrhea. Reports loose BM x 2 daily. Denies abdominal pain, urinary complaints, or appetite changes. Denies oral thrush or new skin lesions. Status post bone biopsy 01/12/18. Infect Dis PN-Objective Data - Labs CBC & Chem 7: 01/17/18 01:24 01/18/18 04:00 Labs: Laboratory Results - last 24 hr 01/17/18 01/17/18 01/17/18 11:01 16:11 18:00 PT INR Heparin Anti-Xa, Unfract 0.47 Sodium Potassium Chloride Carbon Dioxide BUN Creatinine Est GFR ( Amer) Est GFR (Non-Af Amer) BUN/Creatinine Ratio Glucose POC Glucose 168 H 157 H Calculated Osmolality Calcium 01/17/18 01/18/18 01/18/18 20:33 04:00 04:00 PT 14.7 H INR 1.3 Heparin Anti-Xa, Unfract Sodium 139 Potassium 4.2 Chloride 109 H Carbon Dioxide 25 BUN 26 H Creatinine 1.59 H Est GFR ( Amer) 56 L Est GFR (Non-Af Amer) 46 L BUN/Creatinine Ratio 16 Glucose 125 H POC Glucose 190 H Calculated Osmolality 294 Calcium 8.9 01/18/18 08:23 PT INR Heparin Anti-Xa, Unfract Sodium Potassium Chloride Carbon Dioxide BUN Creatinine Est GFR ( Amer) Est GFR (Non-Af Amer) BUN/Creatinine Ratio Glucose POC Glucose 156 H Calculated Osmolality Calcium Cultures: Cultures 01/12/18 18:30 Anaerobic Culture - Final Right Foot No anaerobes were recovered. 01/12/18 18:30 Wound Culture - Final Right Foot No growth. 01/12/18 18:30 Acid Fast Stain - Final Right Foot 01/08/18 12:50 Wound Culture - Final Right Foot Methicillin Resistant S.aureus Serology 01/08/18 Range/Units 22:00 Nasal Screen MRSA (PCR) Negative (Negative) Exam - Constitutional Vitals: Temp Pulse Resp BP Pulse Ox 98.1 F 75 16 116/67 97 01/18/18 16:38 01/18/18 16:38 01/18/18 16:38 01/18/18 16:38 01/18/18 16:38 General appearance: cooperative, morbidly obese, no acute distress - Head Head exam: Present: atraumatic, normal inspection, normocephalic - Eye Eye exam: Present: EOMI, normal appearance, PERRL Pupils: Present: normal accommodation - ENT ENT exam: Present: mucous membranes moist - Neck Neck exam: Present: normal inspection - Respiratory Respiratory exam: Present: CTAB. Absent: rales, respiratory distress, rhonchi, wheezes - Cardiovascular Cardiovascular exam: Present: RRR, +S1, +S2 - GI/Abdominal GI/Abdominal exam: Present: distended (obese), normal bowel sounds, soft. Absent: tenderness - Extremities Exam Extremities exam: Absent: joint swelling, normal inspection (venous stasis dermatitis noted to the BLE), pedal edema, tenderness Additional comments: Right foot dressing C/d/I. - Neurological Exam Neurological exam: Present: alert, oriented X3, no focal deficits - Psychiatric Psychiatric exam: Present: normal affect, normal mood - Skin Skin exam: Present: dry, intact, normal color, warm - VTE Documentation of Mechanical Device: Intermittent pneumatic compression device Consult Discharge Plan - Plan [facility]errals: [facility] [Other] - 01/22/18 9:30 am (Please bring your coumadin, and a list of all medications you are on including any over the counter meds. Thank you) Henrry Leone DPM [Partnered Physician] - 01/25/18 8:00 am (Will see Dr. Leone in the [facility].) Prescriptions: Enoxaparin [Lovenox] 170 mg SQ Q12HCO 14 Days #28 syringe - Attending Attestation I examined this patient and my medical decision-making was reviewed with the Resident Physician. I agree with the documented findings, disposition and treatment plan as described except to the extent set forth below.
[2018-01-18] MEDS ORDERED: *HR* Enoxaparin 100 MG/ML SYRINGE SQ SCH (18:00)
[2018-01-18] MEDS ORDERED: *HR* Warfarin 10 MG TABLET PO ONE (18:00)
== END 2018-01-18 18:09 | disposition home health service (06) | DRG 629 ==
LOC: 3NENU 13:44 → EMEROOARM 13:44 → 3NENU 17:50 → SUATTDRO 18:40 → 3ANU 01-08 12:27
PROVIDERS: ADMIT Internal Medicine; ATTEND Internal Medicine

== ENCOUNTER 2018-02-19 00:07 | Inpatient (IN) ==
--- NOTE | 2018-02-19 00:38 | Emergency Department Note ---
Disposition Clinical Impression: Abscess or cellulitis of foot Disposition: Admitted As Inpatient Condition: Good Referrals: Jaime Paula MD [Primary Care Provider] - Forms: ED Satisfaction Letter Time of Disposition: 02:31 General Adult HPI - General Chief complaint: ED Fever Stated complaint: weakness Time Seen by Provider: 02/19/18 00:22 Source: patient, EMS Mode of arrival: EMS Limitations: no limitations Nursing Notes Reviewed: Yes Vital Signs Reviewed: Yes - History of Present Illness HPI Narrative: Nontoxic-appearing 52-year-old male presents by EMS for complaints of generalized weakness and fatigue, and subjective chills. He states "I am afraid I might be getting septic again from my foot ulcer". He states that he has been dealing with a diabetic ulcer to the plantar aspect of the right foot for quite some time now. He recently finished a 2 week course of Bactrim 4 days ago. He had been seeing his orthopedist/auto brake mechanic Dr. Parish for management of this diabetic ulcer. He denies any abdominal pain, nausea, vomiting, diarrhea, urinary symptoms, or productive cough. Onset (ago): hour(s) Pain Scale: 0 Associated symptoms: Reports: fever/chills, weakness, other (Fatigue) Treatments Prior to Arrival: none - Related Data Home Medications Medication Instructions Recorded Confirmed Acetaminophen [Tylenol] 500 mg PO HS 12/02/16 01/05/18 Carvedilol Phosphate [Coreg Cr] 80 mg PO DAILY 12/02/16 01/05/18 Fluticasone/Salmeterol [Advair 1 each IH BID PRN 12/02/16 01/05/18 250-50 Diskus] Furosemide [Lasix] 40 mg PO BID 12/02/16 01/05/18 Insulin Glargine,Hum.rec.anlog 46 units SQ BID 12/02/16 01/05/18 [Lantus Solostar] Metformin HCl [Glucophage] 1,000 mg PO BID 12/02/16 01/05/18 Pentoxifylline 400 mg PO BID 12/02/16 01/05/18 Potassium Chloride 20 meq PO DAILY 12/02/16 01/05/18 Pramipexole [Mirapex] 0.25 mg PO BID 12/02/16 01/05/18 Albuterol Sulfate [Ventolin Hfa] 2 puff IH Q4H PRN 01/05/18 01/05/18 Atorvastatin [Lipitor] 40 mg PO HS 01/05/18 01/05/18 Insulin LISPRO [HumaLOG] 10 units SQ TIDWM 01/05/18 01/05/18 Lansoprazole [Prevacid] 30 mg PO DAILY 01/05/18 01/05/18 Lisinopril [Zestril] 20 mg PO DAILY 01/05/18 01/05/18 Warfarin [Coumadin] 4 mg PO TU 01/05/18 01/05/18 Warfarin [Coumadin] 8 mg PO SUMOWETHFRSA 01/05/18 01/05/18 Previous Rx's Medication Instructions Recorded Loratadine [Claritin] 10 mg PO DAILY tablet 11/17/17 Enoxaparin [Lovenox] 170 mg SQ Q12HCO 14 Days #28 01/18/18 syringe Allergies Allergy/AdvReac Type Severity Reaction Status Date / Time vancomycin Allergy Intermediate Itching Verified 01/05/18 19:34 peanut Allergy Anaphylaxis Verified 03/25/17 00:00 cephalexin [From Keflex] AdvReac Rash Verified 03/25/17 00:00 levofloxacin AdvReac Rash Verified 03/25/17 00:00 Sulfa (Sulfonamide AdvReac Rash Verified 03/25/17 00:00 Antibiotics) All systems ED: reviewed and negative except as stated. Review of Systems: As Per HPI Constitutional: Denies: fever, chills, weakness, weight change Eyes: Denies: eye pain, eye discharge, vision change ENT ED: Denies: ear pain, throat pain, dental pain, hearing loss, epistaxis, congestion, dysphagia Cardiovascular: Denies: chest pain, palpitations, dyspnea on exertion, edema, syncope Respiratory: Denies: cough, dyspnea, wheezes, hemoptysis, stridor Gastrointestinal: Denies: abdominal pain, nausea, vomiting, diarrhea, constipation, hematemesis, melena, hematochezia Genitourinary: Denies: urgency, dysuria, frequency, hematuria Musculoskeletal: Denies: back pain, neck pain, arthralgia, myalgia Integumentary: Reports: as per HPI, other (Right foot cellulitis/diabetic ulcer) . Denies: rash, abrasion, lesions Neurological: Denies: headache, weakness, numbness, paresthesias, confusion, abnormal gait, vertigo Psychiatric: Denies: anxiety, depression, suicidal thoughts, homicidal thoughts , auditory hallucinations, visual hallucinations Endocrine: Denies: fatigue Hematological/Lymphatic: Denies: easy bleeding, easy bruising Allergic/Immunologic: Denies: facial swelling, urticaria Past Medical History - Past Medical History Attestation: Yes The following information was validated with the patient. Source: patient, nursing notes reviewed Medical history: Reports: asthma, atrial fibrillation, CHF, DVT, diabetes, hyperlipidemia, hypertension, pulmonary embolus, renal disease, venous stasis, other Surgical history: Reports: herniorrhaphy Psychiatric history: Reports: no psych history - Social History Smoking Status: Never smoker Smokeless Tobacco Status: No Alcohol use: Reports: none Drug use: Reports: none Physical Exam - General Limitations: no limitations General appearance: alert, in no apparent distress - Head Head exam: atraumatic, normocephalic, normal inspection - Eye Eye exam: Present: normal appearance, PERRL, EOMI. Absent: nystagmus - ENT ENT exam: mucous membranes moist - Neck Neck exam: Present: normal inspection, full ROM, trachea midline - Chest Chest inspection: Present: normal inspection, symmetric chest wall rise - Respiratory Respiratory exam: Present: normal lung sounds bilaterally. Absent: respiratory distress, wheezes, stridor, accessory muscle use, prolonged expiratory phase - Cardiovascular Cardiovascular exam: Present: regular rate, normal rhythm, normal heart sounds - Abdominal Exam Abdominal exam: Present: soft, Non-Tender, normal bowel sounds - Expanded Lower Extremity Exam Lower leg exam: Present: erythema (Moderate cellulitis of the distal one half of the right lower leg along with apparent venous stasis.) Ankle exam: Present: erythema Foot/toe exam: Present: swelling, erythema (Moderate erythema of the plantar aspect of the right foot that extends into the medial and dorsal aspect of the right foot), other 1 - Approximate 1.5 cm x 1.5 cm ulceration noted. Depth of tunneling is difficult to ascertain. Moderate associated cellulitis. Neurovascular/Tendon exam: Present: normal capillary refill. Absent: pulse deficit, tendon deficit, extremity cold to touch Gait: not tested/not observed - Neurological Exam Neurological exam: Present: alert, oriented X3 - Psychiatric Psychiatric exam: Present: normal affect, normal mood - Skin Skin exam: Present: warm, dry Course Course Narrative: 0230: I spoke with Dr. Guzman of the Hospital services accepted the patient for admission to the hospitalist care for further management of his diabetic foot ulcer. I discussed this plan with Dr. Tinoco. Dr. Tinoco has had a face- to-face evaluation with the patient and agrees with this plan. Vital Signs Temperature 98.5 F 02/19/18 00:09 Pulse Rate 104 02/19/18 00:09 Respiratory Rate 20 02/19/18 00:09 Blood Pressure 144/65 02/19/18 00:09 O2 Sat by Pulse Oximetry 97 02/19/18 00:09 Temperature 98.5 F 02/19/18 00:09 Pulse Rate 92 02/19/18 02:16 Respiratory Rate 18 02/19/18 02:16 Blood Pressure 147/75 02/19/18 02:16 O2 Sat by Pulse Oximetry 98 02/19/18 02:16 Oxygen Delivery Oxygen Delivery Room Air Medical Decision Making - Medical Records Medical records reviewed: Yes I reviewed the patient's medical records. - Lab Data Lab results reviewed: Yes I reviewed the patient's lab results. Lab results narrative: Lab Results 02/19/18 02/19/18 02/19/18 Range/Units 01:19 01:19 01:19 WBC 13.0 H (4.3-11.1) K/mcL RBC 3.35 L (4.19-5.50) M/mcL Hgb 9.2 L (12.9-16.9) g/dL Hct 30.0 L (37.5-50.1) % MCV 89.6 (83.0-100.0) fL MCH 27.5 L (28.0-33.3) pg MCHC 30.7 L (31.6-35.5) g/dL RDW 15.3 H (11.5-14.5) % Plt Count 236 (140-400) K/mcL MPV 11.1 (9.4-12.4) fL Immature Gran % 0.4 (0-4) % Seg Neutrophils % 69.5 % Lymphocytes % 14.4 % Monocytes % 8.0 % Eosinophils % 7.5 % Basophils % 0.2 % Neutrophils # 9.0 H (1.6-8.9) K/mcL Lymphocytes # 1.9 (0.6-4.6) K/mcL Monocytes # 1.0 (0.0-1.3) K/mcL Eosinophils # 1.0 H (0.0-0.6) K/mcL Basophils # 0.0 (0.0-0.2) K/mcL ESR (0-10) mm/hr PT 16.3 H (9.4-12.1) Seconds INR 1.4 APTT 34.7 (26.0-36.0) Seconds Sodium 138 (136-145) mEq/L Potassium 4.7 (3.5-5.1) mEq/L Chloride 106 (98-107) mEq/L Carbon Dioxide 26 (23-29) mEq/L BUN 26 H (6-20) mg/dL Creatinine 1.39 H (0.70-1.30) mg/dL Est GFR ( Amer) > 60 (> 60) Est GFR (Non-Af Amer) 54 L (> 60) BUN/Creatinine Ratio 19 (6-26) Glucose 182 H (70-105) mg/dL Calculated Osmolality 295 (280-300) Lactic Acid (0.5-2.2) mmol/L Calcium 8.9 (8.6-10.3) mg/dL Troponin I < 0.03 (< 0.04) ng/mL C-Reactive Protein (Less than 10) mg/L 02/19/18 02/19/18 02/19/18 Range/Units 01:19 01:19 01:19 WBC (4.3-11.1) K/mcL RBC (4.19-5.50) M/mcL Hgb (12.9-16.9) g/dL Hct (37.5-50.1) % MCV (83.0-100.0) fL MCH (28.0-33.3) pg MCHC (31.6-35.5) g/dL RDW (11.5-14.5) % Plt Count (140-400) K/mcL MPV (9.4-12.4) fL Immature Gran % (0-4) % Seg Neutrophils % % Lymphocytes % % Monocytes % % Eosinophils % % Basophils % % Neutrophils # (1.6-8.9) K/mcL Lymphocytes # (0.6-4.6) K/mcL Monocytes # (0.0-1.3) K/mcL Eosinophils # (0.0-0.6) K/mcL Basophils # (0.0-0.2) K/mcL ESR 61 H (0-10) mm/hr PT (9.4-12.1) Seconds INR APTT (26.0-36.0) Seconds Sodium (136-145) mEq/L Potassium (3.5-5.1) mEq/L Chloride (98-107) mEq/L Carbon Dioxide (23-29) mEq/L BUN (6-20) mg/dL Creatinine (0.70-1.30) mg/dL Est GFR ( Amer) (> 60) Est GFR (Non-Af Amer) (> 60) BUN/Creatinine Ratio (6-26) Glucose (70-105) mg/dL Calculated Osmolality (280-300) Lactic Acid 1.2 (0.5-2.2) mmol/L Calcium (8.6-10.3) mg/dL Troponin I (< 0.04) ng/mL C-Reactive Protein < 5 (Less than 10) mg/L Result diagrams: 02/19/18 01:19 02/19/18 01:19 Lab Results 02/19/18 02/19/18 02/19/18 Range/Units 01:19 01:19 01:19 WBC 13.0 H (4.3-11.1) K/mcL RBC 3.35 L (4.19-5.50) M/mcL Hgb 9.2 L (12.9-16.9) g/dL Hct 30.0 L (37.5-50.1) % MCV 89.6 (83.0-100.0) fL MCH 27.5 L (28.0-33.3) pg MCHC 30.7 L (31.6-35.5) g/dL RDW 15.3 H (11.5-14.5) % Plt Count 236 (140-400) K/mcL MPV 11.1 (9.4-12.4) fL Immature Gran % 0.4 (0-4) % Seg Neutrophils % 69.5 % Lymphocytes % 14.4 % Monocytes % 8.0 % Eosinophils % 7.5 % Basophils % 0.2 % Neutrophils # 9.0 H (1.6-8.9) K/mcL Lymphocytes # 1.9 (0.6-4.6) K/mcL Monocytes # 1.0 (0.0-1.3) K/mcL Eosinophils # 1.0 H (0.0-0.6) K/mcL Basophils # 0.0 (0.0-0.2) K/mcL ESR (0-10) mm/hr PT 16.3 H (9.4-12.1) Seconds INR 1.4 APTT 34.7 (26.0-36.0) Seconds Sodium 138 (136-145) mEq/L Potassium 4.7 (3.5-5.1) mEq/L Chloride 106 (98-107) mEq/L Carbon Dioxide 26 (23-29) mEq/L BUN 26 H (6-20) mg/dL Creatinine 1.39 H (0.70-1.30) mg/dL Est GFR ( Amer) > 60 (> 60) Est GFR (Non-Af Amer) 54 L (> 60) BUN/Creatinine Ratio 19 (6-26) Glucose 182 H (70-105) mg/dL Calculated Osmolality 295 (280-300) Lactic Acid (0.5-2.2) mmol/L Calcium 8.9 (8.6-10.3) mg/dL Troponin I < 0.03 (< 0.04) ng/mL C-Reactive Protein (Less than 10) mg/L 02/19/18 02/19/18 02/19/18 Range/Units 01:19 01:19 01:19 WBC (4.3-11.1) K/mcL RBC (4.19-5.50) M/mcL Hgb (12.9-16.9) g/dL Hct (37.5-50.1) % MCV (83.0-100.0) fL MCH (28.0-33.3) pg MCHC (31.6-35.5) g/dL RDW (11.5-14.5) % Plt Count (140-400) K/mcL MPV (9.4-12.4) fL Immature Gran % (0-4) % Seg Neutrophils % % Lymphocytes % % Monocytes % % Eosinophils % % Basophils % % Neutrophils # (1.6-8.9) K/mcL Lymphocytes # (0.6-4.6) K/mcL Monocytes # (0.0-1.3) K/mcL Eosinophils # (0.0-0.6) K/mcL Basophils # (0.0-0.2) K/mcL ESR 61 H (0-10) mm/hr PT (9.4-12.1) Seconds INR APTT (26.0-36.0) Seconds Sodium (136-145) mEq/L Potassium (3.5-5.1) mEq/L Chloride (98-107) mEq/L Carbon Dioxide (23-29) mEq/L BUN (6-20) mg/dL Creatinine (0.70-1.30) mg/dL Est GFR ( Amer) (> 60) Est GFR (Non-Af Amer) (> 60) BUN/Creatinine Ratio (6-26) Glucose (70-105) mg/dL Calculated Osmolality (280-300) Lactic Acid 1.2 (0.5-2.2) mmol/L Calcium (8.6-10.3) mg/dL Troponin I (< 0.04) ng/mL C-Reactive Protein < 5 (Less than 10) mg/L - Radiology Data Radiology results reviewed: Yes I reviewed the patient's radiology results. Foot X-Ray 02/19/18 00:30 IMPRESSION: Slight interval increase in size of a plantar ulceration in the midfoot with unchanged associated diffuse soft tissue swelling and underlying chronic Charcot changes in the midfoot. No discrete erosive changes. D/ / Sun Del Cid MD / Sun Del Cid MD Interpreting Provider: Sun Del Cid MD Attestation Statement - Attestation Attestation: Dr Tinoco note: Pt seen in conjunction w/ TRACIE Biswas; please see his charting for complete documentation; I spent face to face time w/ the pt and I agree w/ the pt's treatment and disposition; Progressive weakness for days; worsening swelling / redness in R foot for ? time as pt unable to feel his foot at baseline due to progressive/long time diabetes; vitals stable; rt foot abscess/cellulitis vs osteomyelitis; pt informed that due to severe nature of delayed presentation he is at risk of loosing his foot;
[2018-02-19] MEDS ORDERED: Clindamycin 600 MG/50 ML 600 MG/50 ML IV.SOLN IVPB ONE (00:42)
[2018-02-19 01:34] LABS: Basophils % 0.2 %; Eosinophils % 7.5 %; Hemoglobin 9.2 g/dL (12.9-16.9); Immature Granulocytes % 0.4 % (0-4); Lymphocytes # 1.9 K/mcL (0.6-4.6); Lymphocytes % 14.4 %; Mean Corpuscular HGB Conc 30.7 g/dL (31.6-35.5); Mean Corpuscular Hemoglobin 27.5 pg (28.0-33.3); Mean Corpuscular Volume 89.6 fL (83.0-100.0); Mean Platelet Volume 11.1 fL (9.4-12.4); Platelet Count 236 K/mcL (140-400); Red Blood Count 3.35 M/mcL (4.19-5.50); Red Cell Distribution Width 15.3 % (11.5-14.5); Segmented Neutrophils % 69.5 %
[2018-02-19 01:39] LABS: INR 1.4; Prothrombin Time 16.3 Seconds (9.4-12.1)
[2018-02-19 01:42] LABS: Activated Partial Thrombo Time 34.7 Seconds (26.0-36.0)
[2018-02-19] MEDS ORDERED: 0.9 % Sodium Chloride 1,000 ML IVC ONE (01:49)
[2018-02-19 01:57] LABS: BUN/Creatinine Ratio 19 (6-26); Blood Urea Nitrogen 26 mg/dL (6-20); Calcium 8.9 mg/dL (8.6-10.3); Carbon Dioxide 26 mEq/L (23-29); Chloride 106 mEq/L (98-107); Glucose 182 mg/dL (70-105); Osmolality,Calculated 295 (280-300); Potassium 4.7 mEq/L (3.5-5.1); Sodium 138 mEq/L (136-145); eGFR For Non-African Americans 54 (> 60)
[2018-02-19 01:58] LABS: Troponin I < 0.03 ng/mL (< 0.04)
[2018-02-19] MEDS ORDERED: Naloxone 0.4 MG/ML INJ IVP PRN (04:44)
[2018-02-19] MEDS ORDERED: Acetaminophen 325 MG TABLET PO PRN (04:44)
[2018-02-19] MEDS ORDERED: *HR* Dextrose 50 % in Water (Syg) 50 ML SYRINGE IVP PRN (04:49)
[2018-02-19] MEDS ORDERED: Dextrose Gel 15 GM/37.5 ML TUBE PO PRN ×2 (04:49)
[2018-02-19] MEDS ORDERED: D5% in Water 1,000 ML IVC PRN ×2 (04:49→13:55)
--- NOTE | 2018-02-19 05:02 | Internal Med History&Physical ---
Date of Encounter: 02/19/18 Time of Encounter: 04:56 Internal Medicine - H&P: HPI Chief complaint: malaise Admitted From: Emergency Dept Plans for Post Hospital Care: Home History of present illness: Mr. Jones is a 52 year old male with a past medical history of asthma, A. fib, CHF, DVT, diabetes mellitus, hyperlipidemia, hypertension, PE, CAD, diabetic foot wound. He was hospitalized last month for cellulitis and his chronic right foot wound. He also recently just completed a two-week course of antibiotics for his right foot wound. He presented today with the chief complaint of "not feeling well" with a concern that he was developing sepsis secondary to his foot wound. In the ER he was slightly tachycardic but afebrile , with a white count of 13.0. Clinically however he is not septic appearing. He was given 1 L of normal saline and 1 dose of clindamycin. X-ray of his right foot demonstrated ulceration and soft tissue swelling but no obvious bony involvement, x-ray unchanged from previous. Lactic acid was within normal range as was troponin. The patient denies any fever or chills, chest pain or shortness of breath, abdominal pain or nausea. Past Med Surg Social Fam HX - Past Medical History Medical history: asthma, atrial fibrillation, CHF, DVT, diabetes, hyperlipidemia , hypertension, pulmonary embolus, renal disease, venous stasis, other Additional medical history: Charcot's foot, Venous insufficiency, morbid obesity Psychiatric history: no psych history - Past Surgical History Surgical History: herniorrhaphy Additional surgical history: I&D right foot - Social History Smoking Status: Never smoker Smokeless Tobacco Status: No Alcohol use: none Drug use: none - Family History Father Family Member Ethnicity: Non- Living Status: Still Living Hx Family Cardiac Disorders: Yes (Heart valve replacement, venous stasis) Hx Family Respiratory Disorders: No Hx Family Cancer: No Hx Family GI Disorders: No Hx Family Endocrine Disorder: No Hx Family Neuromuscular Disorders: No Hx Family Neurologic Disorders: No Hx Family HEENT Disorders: No Hx Family Autoimmune Disorders: No Mother Adopted: No Family Member Ethnicity: Non- Living Status: Hx Family Cardiac Disorders: Yes Hx Family Respiratory Disorders: No Hx Family Cancer: No Hx Family GI Disorders: No Hx Family Endocrine Disorder: Yes (DM) Hx Family Neuromuscular Disorders: No Hx Family Neurologic Disorders: Yes (Alzheimer's disease) Hx Family HEENT Disorders: No Hx Family Autoimmune Disorders: No Brother Family Member Ethnicity: Non- Living Status: Still Living Hx Family Cardiac Disorders: Yes (DVTs) Hx Family Respiratory Disorders: No Hx Family Cancer: No Hx Family GI Disorders: No Hx Family Endocrine Disorder: No Hx Family Neuromuscular Disorders: No Hx Family Neurologic Disorders: No Hx Family HEENT Disorders: No Hx Family Autoimmune Disorders: No Internal Medicine - H&P: Meds Acetaminophen [Tylenol] 500 mg PO HS 12/02/16 [History] Carvedilol Phosphate [Coreg Cr] 80 mg PO DAILY 12/02/16 [History] Fluticasone/Salmeterol [Advair 250-50 Diskus] 1 each IH BID PRN 12/02/16 [ History] Furosemide [Lasix] 40 mg PO BID 12/02/16 [History] Insulin Glargine,Hum.rec.anlog [Lantus Solostar] 46 units SQ BID 12/02/16 [ History] Metformin HCl [Glucophage] 1,000 mg PO BID 12/02/16 [History] Pentoxifylline 400 mg PO BID 12/02/16 [History] Potassium Chloride 20 meq PO DAILY 12/02/16 [History] Pramipexole [Mirapex] 0.25 mg PO BID 12/02/16 [History] Loratadine [Claritin] 10 mg PO DAILY tablet 11/17/17 [Rx] Albuterol Sulfate [Ventolin Hfa] 2 puff IH Q4H PRN 01/05/18 [History] Atorvastatin [Lipitor] 40 mg PO HS 01/05/18 [History] Insulin LISPRO [HumaLOG] 10 units SQ TIDWM 01/05/18 [History] Lansoprazole [Prevacid] 30 mg PO DAILY 01/05/18 [History] Lisinopril [Zestril] 20 mg PO DAILY 01/05/18 [History] Warfarin [Coumadin] 4 mg PO TU 01/05/18 [History] Warfarin [Coumadin] 8 mg PO SUMOWETHFRSA 01/05/18 [History] Enoxaparin [Lovenox] 170 mg SQ Q12HCO 14 Days #28 syringe 01/18/18 [Rx] 3 Allergy/AdvReac Type Severity Reaction Status Date / Time vancomycin Allergy Intermediate Itching Verified 01/05/18 19:34 peanut Allergy Anaphylaxis Verified 03/25/17 00:00 cephalexin [From Keflex] AdvReac Rash Verified 03/25/17 00:00 levofloxacin AdvReac Rash Verified 03/25/17 00:00 Sulfa (Sulfonamide AdvReac Rash Verified 03/25/17 00:00 Antibiotics) All Systems PM: A 10-system review of systems was performed and is negative for pertinent findings except as documented above in the HPI. - Constitutional Constitutional: no chills, no fever(s) - Cardiovascular Cardiovascular ROS IM: no chest pain, no dyspnea, no irregular heart rhythm - Respiratory Respiratory: no cough - Gastrointestinal Gastrointestinal: no abdominal pain, no diarrhea, no vomiting - Genitourinary Genitourinary ROS male: no urinary frequency, no urinary hesitancy, no urinary incontinence, no urinary urgency - Integumentary Integumentary IM: non-healing lesions, skin ulcer, no new lesions - Neurological Neurological ROS: no abnormal speech, no focal weakness - Psychiatric Psychiatric: no confusion - Constitutional Vitals: Temp Pulse Resp BP Pulse Ox 98.3 F 93 14 138/77 96 02/19/18 02:57 02/19/18 02:57 02/19/18 02:57 02/19/18 02:57 02/19/18 02:57 Exam: Patient no acute distress, alert and oriented 3 Cranial nerves II through XII intact Heart in regular rate and rhythm without murmur or gallop Lungs clear to auscultation bilaterally without wheeze or rales or rhonchi Abdomen obese and soft and nontender with normal bowel sounds present Bilateral lower extremities 3+ pitting edematous with chronic venous stasis skin changes Right foot demonstrates charcot deformity with erythematous plantar surface There is an approximately 2x2cm ulcer on the right plantar surface, with unknown depth and ulcer stage as the base is too deep to be seen without manipulation The foot is without sensation to the ankle, and is non tender in the leg or with movement of the foot There is no excessive edema or induration obvious around the ulcer Dorsal pedal pulse is 2+ palpable with <2s capillary refill in the toes Internal Med - H&P Results - Labs CBC & Chem 7: 02/19/18 01:19 02/19/18 01:19 - Assessment and plan (1) Diabetic foot ulcer Current Visit: Yes Status: Acute Assessment and plan: Patient has history of chronic diabetic ulcer in the plantar surface of the right foot involved with Charcot deformity He was hospitalized last month for this ulcer with podiatry and infectious disease involvement Most recent conclusive wound culture in December 2017 revealed MRSA During last hospitalization patient was treated with daptomycin and Levaquin He received 2 weeks of Bactrim just prior to this hospitalization On arrival patient does not meet sepsis criteria 1L NS and 1 dose Clindamycin received in ED Plan Podiatry and ID consultations NPO idet and hold anticoagulation for possible surgery MRI foot ordered for likely Osteomyelitis Wound and blood cultures pending Will start Zosyn and Daptomycin Continue to monitor Qualifiers: Diabetic foot ulcer location: other Diabetes mellitus type: type 2 Laterality: right Non-pressure ulcer stage: unspecified non-pressure ulcer stage Qualified Code(s): E11.621 - Type 2 diabetes mellitus with foot ulcer; L97.519 - Non-pressure chronic ulcer of other part of right foot with unspecified severity (2) Osteomyelitis of right foot Current Visit: Yes Status: Suspected Assessment and plan: Plan as seen above Qualifiers: Osteomyelitis type: other acute Qualified Code(s): M86.171 - Other acute osteomyelitis, right ankle and foot (3) Diabetes Current Visit: No Status: Chronic Assessment and plan: Chronic type 2 diabetic with home insulin use 44 units HS basal insulin 14 units TIDWM ACHS glucose checks and hypoglycemia protocol Qualifiers: Diabetes mellitus type: type 2 Diabetes mellitus ferry terminal agent insulin use: with shelter use Diabetes mellitus complication status: with circulatory complication Diabetes mellitus complication detail: with other circulatory complications Qualified Code(s): E11.59 - Type 2 diabetes mellitus with other circulatory complications; Z79.4 - FDC (current) use of insulin (4) HTN (hypertension) Current Visit: No Status: Chronic Assessment and plan: Chronic hypertension managed with home medications Blood pressure stable here We will continue home medications once confirmed by pharmacy Qualifiers: Hypertension type: essential hypertension Qualified Code(s): I10 - Essential (primary) hypertension (5) HLD (hyperlipidemia) Current Visit: No Status: Chronic Assessment and plan: Chronic hyperlipidemia managed with home medications We will continue home medications once confirmed by pharmacy Qualifiers: Hyperlipidemia type: mixed hyperlipidemia Qualified Code(s): E78.2 - Mixed hyperlipidemia (6) History of pulmonary embolism Current Visit: No Status: Chronic Assessment and plan: History of DVT and PE Patient takes Coumadin at home Holding anticoagulation for possible surgery (7) A-fib Current Visit: No Status: Chronic Assessment and plan: Patient has history of atrial fibrillation Not currently in atrial fibrillation per exam Holding anticoagulation for possible surgery Qualifiers: Atrial fibrillation type: chronic Qualified Code(s): I48.2 - Chronic atrial fibrillation (8) CKD (chronic kidney disease), stage III Current Visit: No Status: Chronic Assessment and plan: Patient has history of chronic kidney disease Creatinine on admission was 1.39 which appears to be baseline based on previous lab results We will continue home medications once confirmed by pharmacy We will attempt to avoid nephrotoxins and renally dose medications (9) DVT prophylaxis Current Visit: No Status: Acute Assessment and plan: EPCDs - Time Spent With Patient Total time spent is greater than 50% in coordination of care (as documented) at patient's floor/unit and/or counseling patient:
[2018-02-19] MEDS ORDERED: DAPTOmycin 1,000 MG in 0.9 % Sodium Chloride 100 ML IVPB SCH (06:00)
[2018-02-19] MEDS ORDERED: *HR* Heparin 5,000 UNIT/ML VIAL SQ SCH (06:00)
[2018-02-19] MEDS: Insulin LISPRO 300 UNITS/3 ML VIAL SQ SCH ×3 (08:57→22:47)
[2018-02-19] MEDS: Piperacillin/Tazobactam 3.375 GM in 0.9 % Sodium Chloride Mini Bag 100 ML IVPB SCH ×2 (09:05→17:40)
[2018-02-19] MEDS: DAPTOmycin 1,000 MG in 0.9 % Sodium Chloride 100 ML IVPB SCH (09:05)
[2018-02-19 09:40] LABS: Bilirubin,Urine Negative (Negative); Blood,Urine Negative (Negative); Clarity,Urine Clear (Clear); Color,Urine Yellow (Yellow); Glucose,Urine (UA) Normal (Normal); Ketones,Urine Negative (Negative); Leukocyte Esterase,Urine Negative (Negative); Nitrite,Urine Negative (Negative); PH,Urine 5.5 pH Units (5.0-8.0); Protein,Urine 30 mg/dL (Neg-Trace); Specific Gravity,Urine 1.015 (1.010-1.025); Urobilinogen,Urine Normal (Normal)
[2018-02-19 09:42] LABS: Bacteria,Urine None Seen per hpf (None-Few); Hyaline Casts,Urine None Seen per lpf (None-Few); Squamous Epithelial Cell,Urine Moderate per lpf (None-Few); WBC,Urine 0-3 per hpf (0-3)
--- NOTE | 2018-02-19 11:50 | Internal Med Progress Note ---
Hospitalist Progress Note - Encounter Date of Encounter: 02/19/18 Time of Encounter: 09:30 - Subjective Interval History: Pt was seen and assessed at bedside at 0930. He is alert, awake, oriented, pleasant. He denies headache, nausea, vomiting, diarrhea, abdominal pain, chest pain, or shortness of breath. He states that he is aware that he will more than likely be here for a few days and denies any questions. Pt has dressing to RLE with serosanguinous drainage, pt states that the seeping has gotten better than on arrival . - Exam Vitals: Temp Pulse Resp BP Pulse Ox 97.8 F 78 18 169/98 98 02/19/18 11:40 02/19/18 11:40 02/19/18 11:40 02/19/18 11:40 02/19/18 11:40 Exam: General: Pt resting quietly on bed, no distress. Obese Skin: pwd, no rashes, lesions, redness Neurological: Pt is alert and awake, oriented x 3, Speech is clear, PERRLA, EOMI , no nystagmus, no pronator drift. strength equal x 4 extremities HEENT: mucous mumbranes moist, no conjuctival pallor Neck: supple, no tracheal deviation, no lymphadenopathy, tenderness, no thyromegaly Heart: S1S2 heard without gallops, clicks, murmurs, no bradycardia or tachycardia, pt has no peripheral edema, pedal and radial pulses palpable bilaterally. Lungs: clear throughout without wheezing, rales, or ronchi, respirations are unlabored Abdomen: soft and non tender with bowel sound present, no hepatomegaly. Psych: Normal affect with good eye contact Extremities: RLE wound with serosanguinous drainage, BLE edema chronic. - Assessment and Plan (1) DVT prophylaxis Current Visit: Yes Status: Acute Assessment and Plan: EPCDs. Warfarin held in anticipation of procedure. pharmacy to dose once restarted. (2) Diabetes Current Visit: Yes Status: Chronic Assessment and Plan: Chronic. Type II. Pt reports that last A1c was > 8. Recheck in the a.m. Continue SSI, accuchecks achs and diabetic diet. (3) HTN (hypertension) Current Visit: Yes Status: Chronic Assessment and Plan: Chronic. Well controlled. Continue home medications. (4) HLD (hyperlipidemia) Current Visit: Yes Status: Chronic Assessment and Plan: Chronic. Continue home medications. (5) Diabetic foot ulcer Current Visit: Yes Status: Acute Assessment and Plan: Patient has history of chronic diabetic ulcer in the plantar surface of the right foot involved with Charcot deformity He was hospitalized last month for this ulcer with podiatry and infectious disease involvement Most recent conclusive wound culture in December 2017 revealed MRSA During last hospitalization patient was treated with daptomycin and Levaquin He received 2 weeks of Bactrim just prior to this hospitalization On arrival patient does not meet sepsis criteria 1L NS and 1 dose Clindamycin received in ED 02/19- Pt with leukocytosis today. He remains afebrile and without tachycardia. Continue IV Daptomycin and Zosyn. ID consulted, I appreciate their recommendations. Podiatry also consulted, again, I appreciate their recommendations. Foot MRI completed, no results available yet. Monitor labs and vitals. Plan: Podiatry and ID consultations NPO idet and hold anticoagulation for possible surgery MRI foot ordered for likely Osteomyelitis Wound and blood cultures pending Will start Zosyn and Daptomycin Continue to monitor (6) History of pulmonary embolism Current Visit: Yes Status: Chronic Assessment and Plan: History of DVT and PE Patient takes Coumadin at home Holding anticoagulation for possible surgery Pharmacy to dose when able to be restarted. Current INR 1.4 (7) A-fib Current Visit: Yes Status: Chronic Assessment and Plan: Patient has history of atrial fibrillation NSR on monitor this a.m. Holding anticoagulation for possible surgery, pharmacy to dose Warfarin when restarted. (8) CKD (chronic kidney disease), stage III Current Visit: Yes Status: Chronic Assessment and Plan: Patient has history of chronic kidney disease Creatinine on admission was 1.39 which appears to be baseline based on previous lab results Avoid nephrotoxins and monitor labs (9) Osteomyelitis of right foot Current Visit: Yes Status: Suspected Assessment and Plan: Plan as above. DVT Prophylaxis: As above. - Time Spent with Patient Total time spent is greater than 50% in coordination of care (as documented) at patient's floor/unit and/or counseling patient: less than 15 minutes Plan of Care Discussed with: patient Internal Medicine: Result - Labs CBC & Chem 7: 02/19/18 01:19 02/19/18 01:19 Labs: Urine 02/19/18 Range/Units 09:06 Urine Color Yellow (Yellow) Urine Clarity Clear (Clear) Urine pH 5.5 (5.0-8.0) pH Units Ur Specific [place] 1.015 (1.010-1.025) Urine Protein 30 H (Neg-Trace) mg/dL Urine Glucose (UA) Normal (Normal) mg/dL - ABG Interpretation ABG results: PT/INR, D-dimer PT 16.3 Seconds (9.4-12.1) H 02/19/18 01:19 Consult Discharge Plan - Plan Referrals: Jaime Paula MD [Primary Care Provider] - (2) Diabetes Qualifiers: Diabetes mellitus type: type 2 Diabetes mellitus shelter insulin use: with wedger machine use Diabetes mellitus complication status: with circulatory complication Diabetes mellitus complication detail: with other circulatory complications Qualified Code(s): E11.59 - Type 2 diabetes mellitus with other circulatory complications; Z79.4 - care home (current) use of insulin (3) HTN (hypertension) Qualifiers: Hypertension type: essential hypertension Qualified Code(s): I10 - Essential (primary) hypertension (4) HLD (hyperlipidemia) Qualifiers: Hyperlipidemia type: mixed hyperlipidemia Qualified Code(s): E78.2 - Mixed hyperlipidemia (5) Diabetic foot ulcer Qualifiers: Diabetic foot ulcer location: other Diabetes mellitus type: type 2 Laterality: right Non-pressure ulcer stage: unspecified non-pressure ulcer stage Qualified Code(s): E11.621 - Type 2 diabetes mellitus with foot ulcer; L97.519 - Non-pressure chronic ulcer of other part of right foot with unspecified severity (7) A-fib Qualifiers: Atrial fibrillation type: chronic Qualified Code(s): I48.2 - Chronic atrial fibrillation (9) Osteomyelitis of right foot Qualifiers: Osteomyelitis type: other acute Qualified Code(s): M86.171 - Other acute osteomyelitis, right ankle and foot
[2018-02-19] MEDS ORDERED: *HR* Heparin 5,000 UNIT/ML VIAL IVP PRN ×2 (14:57)
[2018-02-19] MEDS ORDERED: *HR* Heparin 5,000 UNIT/ML VIAL IVP ONE (14:57)
--- NOTE | 2018-02-19 15:28 | Infectious Disease Consult ---
Date of Encounter: 02/19/18 Time of Encounter: 15:19 Assessment and Plan (1) Diabetic foot ulcer Status: Acute Assessment and plan: Causative organism not clear Previous cultures were positive for MRSA and Enterobacter Previous deep cultures and bone biopsy were no growth so osteomyelitis was ruled out Repeat MRI on this admission not very suggestive of osteomyelitis Inflammatory markers are mildly elevated but they have not changed; ESR around 60 Currently we will treat this as a cellulitis diabetic foot ulcer We will DC the daptomycin I will start the patient on doxycycline and Zosyn for now. Once cultures finalize we will make further recommendations. Monitor labs and for drug toxicity We will ask pharmacy to help us with the dosing Qualifiers: Diabetic foot ulcer location: midfoot Diabetes mellitus type: type 2 Laterality: right Non-pressure ulcer stage: unspecified non-pressure ulcer stage Qualified Code(s): E11.621 - Type 2 diabetes mellitus with foot ulcer; L97.419 - Non-pressure chronic ulcer of right heel and midfoot with unspecified severity (2) Abscess or cellulitis of foot Status: Acute (3) History of MRSA infection Status: Acute Assessment and plan: Of the foot. Was treated with vancomycin patient had an allergic reaction Switched to daptomycin and finish 14 days (4) Diabetes mellitus type 2 in obese Status: Acute (5) Morbid obesity with BMI of 45.0-49.9, adult Status: Acute (6) CKD (chronic kidney disease), stage III Status: Chronic (7) Allergy to multiple antibiotics Status: Acute (8) CHF (congestive heart failure) Status: Chronic Qualifiers: Heart failure type: unspecified Heart failure chronicity: chronic Qualified Code(s): I50.9 - Heart failure, unspecified Infectious Disease HPI - Data of Consult Patient: new to practice Consult date: 02/19/18 Requesting Physician: Carlo Guzman MD Primary Care Provider: Jaime Paula MD - Consult Narrative Reason for consult: Chronic diabetic foot wound was complicated culture antibiotic history History of present illness: Mr. Jones is a 52 year old male Patient is ais a 52 year old male with a past medical history of asthma, A. fib , CHF, DVT, diabetes mellitus, hyperlipidemia, hypertension, PE, CAD, diabetic foot wound. Patient is well-known to our service was seen by us on previous admission. Patient has had chronic wounds. Apparently patient has not been feeling well. His been feeling weak and tired. Patient has nonspecific complaints. Since admission, patient has been afebrile, tachycardic but no tachypnea. Patient has been hemodynamically stable. Presenting labs revealed a WBC of 13, 000 with normal differential no bands. ESR 61. BUN of 26 creatinine of 1.49. Urinalysis revealed no UTI. Patient had blood cultures obtained 2 today and are no growth to date. MRI of the right foot today reveals plantar mid foot ulcer with surrounding cellulitis. No convincing MR evidence of abscess. Minimal superficial marrow edema noted along the plantar aspect of the cuboid in the region of the ulcer. This may be reactive edema. Mild/superficial osteomyelitis could not be excluded. Patient was started on combination of daptomycin and Zosyn we are asked to evaluate the patient's make further recommendations. Patient was seen by us in early January of this year and was thought to have osteomyelitis of the right foot initially per MRI. MRI did create new osteomyelitis of the cuboid bone. At that time patient ESR was 62 and CRP was 17. Patient had a podiatry consult and had a bone biopsy on 01/12/2018. Cultures were negative and pathology was negative for osteomyelitis. After long discussion with decided to treat as a superficial wound with 14 days of antibiotics. Patient had an allergic reaction to vancomycin and was switched to daptomycin. His cultures previously where MRSA S:bactrim, doxycyclineand Enterobacter cloacae pansensitive and was treated with levofloxacin and daptomycin. Patient clinically appears great. Does not appear toxic pleasant and joking and does not appear ill. Review of system is really unremarkable. No URI symptoms. No chest pain or shortness of breath. No abdominal pain. No nausea or vomiting. No diarrhea. No constipation. No urinary symptoms. Patient tells me that his blood sugar is well-controlled at home. CC: Carlo Guzman MD Past Med Surg Social Fam HX - Past Medical History Medical history: asthma, atrial fibrillation, CHF, DVT, diabetes, hyperlipidemia , hypertension, pulmonary embolus, renal disease, venous stasis, other Additional medical history: Charcot's foot, Venous insufficiency, morbid obesity Psychiatric history: no psych history - Past Surgical History Surgical History: herniorrhaphy Additional surgical history: I&D right foot - Social History Smoking Status: Never smoker Smokeless Tobacco Status: No Alcohol use: none Drug use: none - Family History Father Family Member Ethnicity: Non- Living Status: Still Living Hx Family Cardiac Disorders: Yes (Heart valve replacement, venous stasis) Hx Family Respiratory Disorders: No Hx Family Cancer: No Hx Family GI Disorders: No Hx Family Endocrine Disorder: No Hx Family Neuromuscular Disorders: No Hx Family Neurologic Disorders: No Hx Family HEENT Disorders: No Hx Family Autoimmune Disorders: No Mother Adopted: No Family Member Ethnicity: Non- Living Status: Hx Family Cardiac Disorders: Yes Hx Family Respiratory Disorders: No Hx Family Cancer: No Hx Family GI Disorders: No Hx Family Endocrine Disorder: Yes (DM) Hx Family Neuromuscular Disorders: No Hx Family Neurologic Disorders: Yes (Alzheimer's disease) Hx Family HEENT Disorders: No Hx Family Autoimmune Disorders: No Brother Family Member Ethnicity: Non- Living Status: Still Living Hx Family Cardiac Disorders: Yes (DVTs) Hx Family Respiratory Disorders: No Hx Family Cancer: No Hx Family GI Disorders: No Hx Family Endocrine Disorder: No Hx Family Neuromuscular Disorders: No Hx Family Neurologic Disorders: No Hx Family HEENT Disorders: No Hx Family Autoimmune Disorders: No Infectious Disease-CN:Meds Acetaminophen [Tylenol] 500 mg PO HS 12/02/16 [History] Carvedilol Phosphate [Coreg Cr] 80 mg PO DAILY 12/02/16 [History] Fluticasone/Salmeterol [Advair 250-50 Diskus] 1 each IH BID PRN 12/02/16 [ History] Furosemide [Lasix] 40 mg PO BID 12/02/16 [History] Insulin Glargine,Hum.rec.anlog [Lantus Solostar] 46 units SQ BID 12/02/16 [ History] Metformin HCl [Glucophage] 1,000 mg PO BID 12/02/16 [History] Pentoxifylline 400 mg PO BID 12/02/16 [History] Potassium Chloride 20 meq PO DAILY 12/02/16 [History] Pramipexole [Mirapex] 0.25 mg PO BID 12/02/16 [History] Loratadine [Claritin] 10 mg PO DAILY tablet 11/17/17 [Rx] Albuterol Sulfate [Ventolin Hfa] 2 puff IH Q4H PRN 01/05/18 [History] Atorvastatin [Lipitor] 40 mg PO HS 01/05/18 [History] Insulin LISPRO [HumaLOG] 10 units SQ TIDWM 01/05/18 [History] Lansoprazole [Prevacid] 30 mg PO DAILY 01/05/18 [History] Lisinopril [Zestril] 20 mg PO DAILY 01/05/18 [History] Warfarin [Coumadin] 6 mg PO MOWEFR 01/05/18 [History] Warfarin [Coumadin] 8 mg PO SUTUTHSA 01/05/18 [History] 3 Allergy/AdvReac Type Severity Reaction Status Date / Time vancomycin Allergy Intermediate Itching Verified 01/05/18 19:34 peanut Allergy Anaphylaxis Verified 03/25/17 00:00 cephalexin [From Keflex] AdvReac Rash Verified 03/25/17 00:00 levofloxacin AdvReac Rash Verified 03/25/17 00:00 Sulfa (Sulfonamide AdvReac Rash Verified 03/25/17 00:00 Antibiotics) Review of systems: 10 point review of systems done, negative other for what mentioned in the history of present illness Exam - Constitutional Vitals: Temp Pulse Resp BP Pulse Ox 97.9 F 75 16 175/85 97 02/19/18 14:27 02/19/18 14:27 02/19/18 14:27 02/19/18 14:27 02/19/18 14:27 General appearance: cooperative, no febrile - Head Head exam: Present: atraumatic, normocephalic - Eye Eye exam: Present: EOMI, PERRL, sclera anicteric - ENT ENT exam: Present: mucous membranes moist, normal exam - Neck Neck exam: Absent: meningismus - Respiratory Respiratory exam: Present: CTAB. Absent: wheezes - Cardiovascular Cardiovascular exam: Present: RRR, +S2 - GI/Abdominal GI/Abdominal exam: Present: normal bowel sounds, soft. Absent: tenderness - Extremities Exam Additional comments: Bilateral lower extremity venous stasis. ight foot demonstrates charcot deformity with erythematous plantar surface There is an approximately 2x2cm ulcer on the right plantar surface. There is no surrounding erythema or fluctuance. There is edema but I think it is chronic - Neurological Exam Neurological exam: Present: alert, oriented X3. Absent: speech deficit - Psychiatric Psychiatric exam: Present: normal affect, normal mood Infectious Disease CN: Results - Labs CBC & Chem 7: 02/19/18 16:43 10/08/18 01:19 Consult Discharge Plan - Plan Referrals: Jaime Paula MD [Primary Care Provider] -
--- NOTE | 2018-02-19 16:58 | Podiatry Consult Note ---
Date of Encounter: 02/19/18 Time of Encounter: 12:00 Assessment and Plan (1) Diabetic foot ulcer Current visit: Yes Status: Acute Assessment: Chronic diabetic ulceration of the right foot- full thickness Assessed at bedside Chronic ulceration of plantar aspect of right foot with associated cellulitis Likely soft tissue infection of the wound Active charcot Xray negative for osseous involvement and MRI negative for abscess formation at this time Flushed with saline Packed with iodoform, will need BID flush and pack to wound Apply 4x4 and dry bulk dressing Offload, protective limited weight bearing If patient has a CAM boot at home please advise to bring in, if he does not we will have one delivered from bracing Continue antibiotics at this time Will continue to monitor. Blood cultures pending Qualifiers: Diabetic foot ulcer location: midfoot Diabetes mellitus type: type 2 Laterality: right Non-pressure ulcer stage: unspecified non-pressure ulcer stage Qualified Code(s): E11.621 - Type 2 diabetes mellitus with foot ulcer; L97.419 - Non-pressure chronic ulcer of right heel and midfoot with unspecified severity (2) Cellulitis Current visit: No Status: Acute Qualifiers: Site of cellulitis: extremity Site of cellulitis of extremity: lower extremity Laterality: unspecified laterality Qualified Code(s): L03.119 - Cellulitis of unspecified part of limb (3) Type 2 diabetes mellitus Current visit: No Status: Chronic Qualifiers: 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 Jones is a 52 year old male with a past medical history of asthma, A. fib, CHF, DVT, diabetes mellitus, hyperlipidemia, hypertension, PE, CAD, diabetic foot wound. Patient has hx of non healing wound of the right foot. He is followed in wound care clinic per . Patient was last seen 2 weeks ago and stable. States that yesterday he started to feel weak and nauseated with elevated blood glucose in the 200s. States his told him his foot was red and needed to come to the ED. Asked how he feels today, states "same as always" . Patient denies any pain at this time. Patient denies any fevers, chills, n/v or fls. Patient was admitted for IV antibiotics and workup. Xray and MRI revealed no osseous involvement or appearance of abscess of the right foot. Blood and wound cultures were obtained. Past Med Surg Social Fam HX - Past Medical History Medical history: asthma, atrial fibrillation, CHF, DVT, diabetes, hyperlipidemia , hypertension, pulmonary embolus, renal disease, venous stasis, other Additional medical history: Charcot's foot, Venous insufficiency, morbid obesity Psychiatric history: no psych history - Past Surgical History Surgical History: herniorrhaphy Additional surgical history: I&D right foot - Social History Smoking Status: Never smoker Smokeless Tobacco Status: No Alcohol use: none Drug use: none - Family History Father Family Member Ethnicity: Non- Living Status: Still Living Hx Family Cardiac Disorders: Yes (Heart valve replacement, venous stasis) Hx Family Respiratory Disorders: No Hx Family Cancer: No Hx Family GI Disorders: No Hx Family Endocrine Disorder: No Hx Family Neuromuscular Disorders: No Hx Family Neurologic Disorders: No Hx Family HEENT Disorders: No Hx Family Autoimmune Disorders: No Mother Adopted: No Family Member Ethnicity: Non- Living Status: Hx Family Cardiac Disorders: Yes Hx Family Respiratory Disorders: No Hx Family Cancer: No Hx Family GI Disorders: No Hx Family Endocrine Disorder: Yes (DM) Hx Family Neuromuscular Disorders: No Hx Family Neurologic Disorders: Yes (Alzheimer's disease) Hx Family HEENT Disorders: No Hx Family Autoimmune Disorders: No Brother Family Member Ethnicity: Non- Living Status: Still Living Hx Family Cardiac Disorders: Yes (DVTs) Hx Family Respiratory Disorders: No Hx Family Cancer: No Hx Family GI Disorders: No Hx Family Endocrine Disorder: No Hx Family Neuromuscular Disorders: No Hx Family Neurologic Disorders: No Hx Family HEENT Disorders: No Hx Family Autoimmune Disorders: No Medications and Allergies Acetaminophen [Tylenol] 500 mg PO HS 12/02/16 [History] Carvedilol Phosphate [Coreg Cr] 80 mg PO DAILY 12/02/16 [History] Fluticasone/Salmeterol [Advair 250-50 Diskus] 1 each IH BID PRN 12/02/16 [ History] Furosemide [Lasix] 40 mg PO BID 12/02/16 [History] Insulin Glargine,Hum.rec.anlog [Lantus Solostar] 46 units SQ BID 12/02/16 [ History] Metformin HCl [Glucophage] 1,000 mg PO BID 12/02/16 [History] Pentoxifylline 400 mg PO BID 12/02/16 [History] Potassium Chloride 20 meq PO DAILY 12/02/16 [History] Pramipexole [Mirapex] 0.25 mg PO BID 12/02/16 [History] Loratadine [Claritin] 10 mg PO DAILY tablet 11/17/17 [Rx] Albuterol Sulfate [Ventolin Hfa] 2 puff IH Q4H PRN 01/05/18 [History] Atorvastatin [Lipitor] 40 mg PO HS 01/05/18 [History] Insulin LISPRO [HumaLOG] 10 units SQ TIDWM 01/05/18 [History] Lansoprazole [Prevacid] 30 mg PO DAILY 01/05/18 [History] Lisinopril [Zestril] 20 mg PO DAILY 01/05/18 [History] Warfarin [Coumadin] 6 mg PO MOWEFR 01/05/18 [History] Warfarin [Coumadin] 8 mg PO SUTUTHSA 01/05/18 [History] 3 Allergy/AdvReac Type Severity Reaction Status Date / Time vancomycin Allergy Intermediate Itching Verified 01/05/18 19:34 peanut Allergy Anaphylaxis Verified 03/25/17 00:00 cephalexin [From Keflex] AdvReac Rash Verified 03/25/17 00:00 levofloxacin AdvReac Rash Verified 03/25/17 00:00 Sulfa (Sulfonamide AdvReac Rash Verified 03/25/17 00:00 Antibiotics) All Systems Reviewed: as per HPI Physical Exam - Constitutional Vitals: Temp Pulse Resp BP Pulse Ox 97.9 F 75 16 175/85 97 02/19/18 14:27 02/19/18 14:27 02/19/18 14:27 02/19/18 14:27 02/19/18 14:27 Exam: awake, alert and oriented DP/PT pulses palpable Warm toes to tibia No calf pain with manual compression Mild non pitting edema noted to BLE Muscle strength 5/5 and equal bilaterally There is a chronic full thickness ulceration to plantar/lateral aspect of right foot [id number] This is scant thick yellow drainage Mild odor There is periwound edema, erythema and warmth extending onto the lateral aspect of the foot without fluctuance and no ascending cellulitis noted No pain with probe Probe to bone noted Results - Labs Result Diagrams: 02/20/18 00:30 02/20/18 00:30 Labs: Abnormal lab results WBC 13.0 K/mcL (4.3-11.1) H 02/19/18 01:19 RBC 3.35 M/mcL (4.19-5.50) L 02/19/18 01:19 Hgb 9.2 g/dL (12.9-16.9) L 02/19/18 01:19 Hct 30.0 % (37.5-50.1) L 02/19/18 01: MCH 27.5 pg (28.0-33.3) L 02/19/18 01: MCHC 30.7 g/dL (31.6-35.5) L 02/19/18 01: RDW 15.3 % (11.5-14.5) H 02/19/18 01:19 Neutrophils # 9.0 K/mcL (1.6-8.9) H 02/19/18 01:19 Eosinophils # 1.0 K/mcL (0.0-0.6) H 02/19/18 01:19 ESR 61 mm/hr (0-10) H 02/19/18 01:19 PT 16.3 Seconds (9.4-12.1) H 02/19/18 01:19 BUN 26 mg/dL (6-20) H 02/19/18 01:19 Creatinine 1.39 mg/dL (0.70-1.30) H 02/19/18 01:19 Est GFR (Non-Af Amer) 54 (> 60) L 02/19/18 01:19 Glucose 182 mg/dL (70-105) H 02/19/18 01:19 POC Glucose 135 mg/dL (70-99) H 02/19/18 07:02 Urine Protein 30 mg/dL (Neg-Trace) H 02/19/18 09:06 Urine Microscopic RBC 3-5 per hpf (0-3) H 02/19/18 09:06 Ur Squamous Epith Cells Moderate per lpf (None-Few) H 02/19/18 09:06 All other labs normal. Consult Discharge Plan - Plan Referrals: Jaime Paula MD [Primary Care Provider] -
[2018-02-19 17:29] LABS: Hematocrit 28.9 % (37.5-50.1); Hemoglobin 8.8 g/dL (12.9-16.9); Mean Corpuscular HGB Conc 30.4 g/dL (31.6-35.5); Mean Corpuscular Hemoglobin 27.2 pg (28.0-33.3); Mean Corpuscular Volume 89.2 fL (83.0-100.0); Mean Platelet Volume 11.8 fL (9.4-12.4); Platelet Count 216 K/mcL (140-400); Red Blood Count 3.24 M/mcL (4.19-5.50); Red Cell Distribution Width 15.6 % (11.5-14.5)
[2018-02-19 17:36] LABS: Heparin anti-factor XA UFH 0.04 IU/mL (0.30-0.70); INR 1.6; Prothrombin Time 18.3 Seconds (9.4-12.1)
[2018-02-19] MEDS: Heparin 25,000 UNIT/500 ML D5W 25,000 UNIT/500 ML BAG IVC SCH (17:37)
[2018-02-19] MEDS ORDERED: *HR* Warfarin 4 MG TABLET PO ONE (18:00)
[2018-02-19] MEDS ORDERED: Warfarin perPT PO PRN (18:00)
[2018-02-19] MEDS ORDERED: Insulin DETEMIR 100 UNIT/ML X5UNITS SQ SCH (21:00)
[2018-02-20] MEDS: Piperacillin/Tazobactam 3.375 GM in 0.9 % Sodium Chloride Mini Bag 100 ML IVPB SCH ×3 (00:44→17:57)
[2018-02-20 00:57] LABS: Basophils % 0.4 %; Eosinophils % 10.4 %; Hemoglobin 8.6 g/dL (12.9-16.9); Immature Granulocytes % 0.3 % (0-4); Lymphocytes # 2.9 K/mcL (0.6-4.6); Mean Corpuscular HGB Conc 30.7 g/dL (31.6-35.5); Mean Corpuscular Hemoglobin 27.2 pg (28.0-33.3); Mean Corpuscular Volume 88.6 fL (83.0-100.0); Mean Platelet Volume 11.5 fL (9.4-12.4); Monocytes # 0.8 K/mcL (0.0-1.3); Monocytes % 8.3 %; Neutrophils # 4.6 K/mcL (1.6-8.9); Platelet Count 206 K/mcL (140-400); Red Blood Count 3.16 M/mcL (4.19-5.50); Red Cell Distribution Width 15.5 % (11.5-14.5); Segmented Neutrophils % 49.6 %
[2018-02-20 01:04] LABS: INR 1.7; Prothrombin Time 19.7 Seconds (9.4-12.1)
[2018-02-20 01:11] LABS: BUN/Creatinine Ratio 16 (6-26); Blood Urea Nitrogen 22 mg/dL (6-20); Calcium 8.7 mg/dL (8.6-10.3); Carbon Dioxide 26 mEq/L (23-29); Chloride 107 mEq/L (98-107); Glucose 152 mg/dL (70-105); Osmolality,Calculated 294 (280-300); Potassium 4.3 mEq/L (3.5-5.1); Sodium 139 mEq/L (136-145); eGFR For Non-African Americans 54 (> 60)
[2018-02-20 01:32] LABS: Estimated Average Glucose 174 mg/dl; Hemoglobin A1C 7.7 %
[2018-02-20] MEDS: Heparin 25,000 UNIT/500 ML D5W 25,000 UNIT/500 ML BAG IVC SCH ×2 (06:21→21:41)
[2018-02-20] MEDS: DAPTOmycin 1,000 MG in 0.9 % Sodium Chloride 100 ML IVPB SCH (09:18)
[2018-02-20] MEDS: Insulin LISPRO 300 UNITS/3 ML VIAL SQ SCH ×5 (09:20→23:20)
--- NOTE | 2018-02-20 11:21 | Infectious Disease Progress No ---
Date of Encounter: 02/20/18 Time of Encounter: 11:19 - Assessment and Plan (1) Cellulitis of right foot Current Visit: No Status: Acute Location: Right foot. Causative organism: Unclear. Wound culture is growing GNR. Likely secondary to chronic non-healing ulcer. X-ray and MRI negative for OM. Inflammatory markers are elevated, but not changed from previous. Discontinue Daptomycin. Start doxycycline 100mg IV Q12H. Continue Zosyn 3.375 grams IV Q8H. Duration of treatment depends on the clinical picture. Await cultures. De-escalate if/when able. Monitor renal function and dose-adjust antibiotics. (2) Chronic ulcer of right foot with fat layer exposed Current Visit: Yes Status: Acute Location: Plantar aspect right foot. Likely secondary to Charcot. Podiatry consulted. Wound care and activity per the Podiatry team. Antibiotic recommendations as above. (3) CKD (chronic kidney disease), stage III Current Visit: Yes Status: Chronic Monitor renal function and dose-adjust antibiotics. (4) Allergy to multiple antibiotics Current Visit: No Status: Acute Allergies to Vancomycin, Keflex, and Levaquin (PO form only). (5) Charcot's joint of foot Current Visit: No Status: Chronic Qualifiers: Laterality: right Qualified Code(s): M14.671 - Charcot's joint, right ankle and foot (6) AF (atrial fibrillation) Current Visit: No Status: Chronic Qualifiers: Atrial fibrillation type: chronic Qualified Code(s): I48.2 - Chronic atrial fibrillation (7) History of MRSA infection Current Visit: Yes Status: Acute Previous foot wound cultures positive for MRSA. Continue contact precautions per protocol. Will continue MRSA coverage with doxycycline for now until cultures finalize. (8) Diabetes mellitus type 2 in obese Current Visit: Yes Status: Acute Hgb A1C 7.7. Recommend aggressive glucose monitoring and control to promote wound healing and prevent re-infection. Management per the primary team. (9) Morbid obesity with BMI of 45.0-49.9, adult Current Visit: Yes Status: Acute - Subjective Interval history: Patient seen and examined. No acute events noted overnight. Patient states that overall he feels well. Denies fevers, chills, or rigors. Denies chest pain, shortness of breath, or cough. Denies nausea, vomiting, or constipation. Reports loose stool yesterday, but none today. Denies abdominal pain, urinary complaints, or appetite changes. Denies oral thrush or new skin lesions. Denies pain at this time. Infect Dis PN-Objective Data - Labs CBC & Chem 7: 02/20/18 00:30 02/20/18 00:30 Labs: Laboratory Results - last 24 hr 02/19/18 02/19/18 02/19/18 16:19 16:43 16:43 WBC 9.5 RBC 3.24 L Hgb 8.8 L Hct 28.9 L MCV 89.2 MCH 27.2 L MCHC 30.4 L RDW 15.6 H Plt Count 216 MPV 11.8 Immature Gran % Seg Neutrophils % Lymphocytes % Monocytes % Eosinophils % Basophils % Neutrophils # Lymphocytes # Monocytes # Eosinophils # Basophils # PT 18.3 H INR 1.6 Heparin Anti-Xa, LM Wt Heparin Anti-Xa, Unfract 0.04 L Sodium Potassium Chloride Carbon Dioxide BUN Creatinine Est GFR ( Amer) Est GFR (Non-Af Amer) BUN/Creatinine Ratio Glucose POC Glucose 125 H Est Mean Plasma Glucose Hemoglobin A1c Calculated Osmolality Calcium 02/19/18 02/20/18 02/20/18 20:57 00:30 00:30 WBC RBC Hgb Hct MCV MCH MCHC RDW Plt Count MPV Immature Gran % Seg Neutrophils % Lymphocytes % Monocytes % Eosinophils % Basophils % Neutrophils # Lymphocytes # Monocytes # Eosinophils # Basophils # PT 19.7 H INR 1.7 Heparin Anti-Xa, LM Wt Heparin Anti-Xa, Unfract 1.29 H* Sodium Potassium Chloride Carbon Dioxide BUN Creatinine Est GFR ( Amer) Est GFR (Non-Af Amer) BUN/Creatinine Ratio Glucose POC Glucose 253 H Est Mean Plasma Glucose Hemoglobin A1c Calculated Osmolality Calcium 02/20/18 02/20/18 02/20/18 00:30 00:30 00:30 WBC 9.3 RBC 3.16 L Hgb 8.6 L Hct 28.0 L MCV 88.6 MCH 27.2 L MCHC 30.7 L RDW 15.5 H Plt Count 206 MPV 11.5 Immature Gran % 0.3 Seg Neutrophils % 49.6 Lymphocytes % 31.0 Monocytes % 8.3 Eosinophils % 10.4 Basophils % 0.4 Neutrophils # 4.6 Lymphocytes # 2.9 Monocytes # 0.8 Eosinophils # 1.0 H Basophils # 0.0 PT INR Heparin Anti-Xa, LM Wt Heparin Anti-Xa, Unfract Sodium 139 Potassium 4.3 Chloride 107 Carbon Dioxide 26 BUN 22 H Creatinine 1.38 H Est GFR ( Amer) > 60 Est GFR (Non-Af Amer) 54 L BUN/Creatinine Ratio 16 Glucose 152 H POC Glucose Est Mean Plasma Glucose 174 Hemoglobin A1c 7.7 H Calculated Osmolality 294 Calcium 8.7 02/20/18 02/20/18 06:48 07:47 WBC RBC Hgb Hct MCV MCH MCHC RDW Plt Count MPV Immature Gran % Seg Neutrophils % Lymphocytes % Monocytes % Eosinophils % Basophils % Neutrophils # Lymphocytes # Monocytes # Eosinophils # Basophils # PT INR Heparin Anti-Xa, LM Wt 0.80 Heparin Anti-Xa, Unfract 0.75 H Sodium Potassium Chloride Carbon Dioxide BUN Creatinine Est GFR ( Amer) Est GFR (Non-Af Amer) BUN/Creatinine Ratio Glucose POC Glucose Est Mean Plasma Glucose Hemoglobin A1c Calculated Osmolality Calcium Exam - Constitutional Vitals: Temp Pulse Resp BP Pulse Ox 97.9 F 80 15 110/76 96 02/20/18 10:29 02/20/18 10:29 02/20/18 10:29 02/20/18 10:29 02/20/18 10:29 General appearance: cooperative, morbidly obese, no acute distress - Head Head exam: Present: atraumatic, normal inspection - Eye Eye exam: Present: EOMI, normal appearance, PERRL Pupils: Present: normal accommodation - ENT ENT exam: Present: mucous membranes moist - Neck Neck exam: Present: normal inspection - Respiratory Respiratory exam: Present: CTAB. Absent: rales, respiratory distress, rhonchi, wheezes - Cardiovascular Cardiovascular exam: Present: RRR, +S1, +S2 - GI/Abdominal GI/Abdominal exam: Present: distended (obese), normal bowel sounds, soft. Absent: tenderness - Extremities Exam Extremities exam: Present: pedal edema (1+ BLE). Absent: joint swelling, normal inspection, tenderness Additional comments: Right foot dressing C/D/I. - Neurological Exam Neurological exam: Present: alert, oriented X3, no focal deficits - Psychiatric Psychiatric exam: Present: normal affect, normal mood - Skin Skin exam: Present: dry, intact, normal color, warm Consult Discharge Plan - Plan Referrals: Jaime Paula MD [Primary Care Provider] - - Attending Attestation I examined this patient and my medical decision-making was reviewed with the Resident Physician. I agree with the documented findings, disposition and treatment plan as described except to the extent set forth below.
--- NOTE | 2018-02-20 13:36 | Podiatry Progress Note ---
Date of Encounter: 02/20/18 Time of Encounter: 12:30 - Assessment and Plan (1) Chronic ulcer of right foot with fat layer exposed Current Visit: Yes Status: Acute IV antibiotics per ID. c/w dressing changes as ordered. no surgical intervention. MRI reviewed with patient as well as current culture results. follow up in wound care upon discharge. Subjective Interval history: sitting up in bed eating. says he feels better today than yesterday. he came in because he had a low grade fever and chills. no nausea or vomiting. Objective - Vital Signs Vital Signs: Vital Signs Temp Pulse Resp BP Pulse Ox 02/20/18 10:29 97.9 F 80 15 110/76 96 02/20/18 07:18 97.9 F 79 17 142/85 97 02/20/18 03:45 98.0 F 82 16 115/70 96 02/20/18 00:22 97.9 F 78 16 144/82 98 02/19/18 19:08 98.1 F 85 16 124/81 97 02/19/18 14:27 97.9 F 75 16 175/85 97 Intake and Output 02/19/18 02/20/18 02/20/18 23:59 07:59 15:59 Intake Total 860 / 860 1200 / 1200 958 / 958 Output Total 0 / 0 1300 / 1300 500 / 500 Balance 860 / 860 -100 / -100 458 / 458 Intake: IV Fluids 100 / 100 600 / 600 378 / 378 Heparin 25,000 UNIT/500 ML D5W 500 / 500 278 / 278 25,000 unit In 500 ml @ 14 UNIT /KG/HR 49.532 mls/hr IVC . Q10H6M [facility] Rx#:[id number] Cubicin 1,000 MG In 0.9 % 100 / 100 Sodium Chloride 100 ML @ 200 mls/hr IVPB Q24H [facility] Rx#: [id number] Zosyn 3.375 GM In 0.9 % Sodium 100 / 100 100 / 100 Chloride (Mini-Bag +) 100 ML @ 25 mls/hr IVPB Q8HR [facility] Rx#: [id number] Oral 760 / 760 600 / 600 580 / 580 Output: Urine 0 / 0 1300 / 1300 500 / 500 Other: Meal Dinner Breakfast Percent of Meal Consumed 100% 100% Weight 163.1 kg Blood Glucose* 253 143 190 Patient Weight 10/09/18 23:59 Weight 163.1 kg - Lab Result Diagrams: 02/20/18 00:30 02/20/18 00:30 Labs: Abnormal lab results RBC 3.16 M/mcL (4.19-5.50) L 02/20/18 00:30 Hgb 8.6 g/dL (12.9-16.9) L 02/20/18 00:30 Hct 28.0 % (37.5-50.1) L 02/20/18 00:30 MCH 27.2 pg (28.0-33.3) L 02/20/18 00:30 MCHC 30.7 g/dL (31.6-35.5) L 02/20/18 00:30 RDW 15.5 % (11.5-14.5) H 02/20/18 00:30 Eosinophils # 1.0 K/mcL (0.0-0.6) H 02/20/18 00:30 ESR 61 mm/hr (0-10) H 02/19/18 01:19 PT 19.7 Seconds (9.4-12.1) H 02/20/18 00:30 Heparin Anti-Xa, Unfract 0.75 IU/mL (0.30-0.70) H 02/20/18 07:47 BUN 22 mg/dL (6-20) H 02/20/18 00:30 Creatinine 1.38 mg/dL (0.70-1.30) H 02/20/18 00:30 Est GFR (Non-Af Amer) 54 (> 60) L 02/20/18 00:30 Glucose 152 mg/dL (70-105) H 02/20/18 00:30 POC Glucose 190 mg/dL (70-99) H 02/20/18 11:27 Hemoglobin A1c 7.7 % (-5.6) H 02/20/18 00:30 Urine Protein 30 mg/dL (Neg-Trace) H 02/19/18 09:06 Urine Microscopic RBC 3-5 per hpf (0-3) H 02/19/18 09:06 Ur Squamous Epith Cells Moderate per lpf (None-Few) H 02/19/18 09:06 Consult Discharge Plan - Plan Referrals: Jaime Paula MD [Primary Care Provider] -
[2018-02-20] MEDS: Furosemide 40 MG TABLET PO SCH (17:17)
--- NOTE | 2018-02-20 17:49 | Internal Med Progress Note ---
Hospitalist Progress Note - Encounter Date of Encounter: 02/20/18 Time of Encounter: 11:00 - Subjective Interval History: Awaiting cultures results which are pending; Gram stain revealed gram-negative rods Continuing doxycycline and IV Zosyn per ID recommendations. - Exam Vitals: Temp Pulse Resp BP Pulse Ox 97.8 F 74 15 122/72 97 02/20/18 14:26 02/20/18 14:26 02/20/18 14:26 02/20/18 14:26 02/20/18 14:26 Exam: Gen.: Nonacute distress, alert and oriented 3 ENT: Mucosal membranes moist Respiratory: Lungs are clear to auscultation bilaterally without any wheezing rhonchi or rales Cardiovascular: Normal S1 and S2 regular rate rhythm no murmurs rubs or gallops Abdomen: Soft, nontender and nondistended with positive bowel sounds Extremities: No lower extremity edema Skin: Normal color - Assessment and Plan (1) Diabetic foot ulcer Current Visit: Yes Status: Acute Assessment and Plan: Patient was taken to the OR for incision and drainage Recommendations per infectious disease to continue doxycycline and IV Zosyn Gram stain revealed gram-negative rods; cultures pending (2) Osteomyelitis of right foot Current Visit: Yes Status: Suspected Assessment and Plan: MRI of the foot revealed minimal superficial marrow edema noted along the plantar aspect of cuboid in the region of the ulcer which could be reactive edema; mild/superficial ostomy colitis cannot be excluded with recommendations for repeat MR in a few months if symptoms not improved Patient went for incision and drainage today per podiatry recommendations (3) Diabetes Current Visit: Yes Status: Chronic Assessment and Plan: Continue SSI, accuchecks achs and diabetic diet. (4) HTN (hypertension) Current Visit: Yes Status: Chronic Assessment and Plan: Controlled; continue home medications. (5) HLD (hyperlipidemia) Current Visit: Yes Status: Chronic Assessment and Plan: Continue statin (6) History of pulmonary embolism Current Visit: Yes Status: Chronic Assessment and Plan: History of DVT and PE Continue heparin drip (7) A-fib Current Visit: Yes Status: Chronic Assessment and Plan: Rate controlled; on heparin drip as above (8) CKD (chronic kidney disease), stage III Current Visit: Yes Status: Chronic Assessment and Plan: Patient at baseline; continue to monitor (9) DVT prophylaxis Current Visit: Yes Status: Acute Assessment and Plan: Patient on heparin drip as above - Time Spent with Patient Total time spent is greater than 50% in coordination of care (as documented) at patient's floor/unit and/or counseling patient: Internal Medicine: Result - Labs CBC & Chem 7: 02/20/18 00:30 02/20/18 00:30 Labs: Short CBC 02/20/18 Range/Units 00:30 WBC 9.3 (4.3-11.1) K/mcL Hgb 8.6 L (12.9-16.9) g/dL Hct 28.0 L (37.5-50.1) % Plt Count 206 (140-400) K/mcL Neutrophils # 4.6 (1.6-8.9) K/mcL BMP 02/20/18 00:30 Sodium 139 Potassium 4.3 Chloride 107 Carbon Dioxide 26 BUN 22 H Creatinine 1.38 H Glucose 152 H Calcium 8.7 - ABG Interpretation ABG results: PT/INR, D-dimer PT 19.7 Seconds (9.4-12.1) H 02/20/18 00:30 Consult Discharge Plan - Plan Referrals: Jaime Paula MD [Primary Care Provider] - (1) Diabetic foot ulcer Qualifiers: Diabetic foot ulcer location: midfoot Diabetes mellitus type: type 2 Laterality: right Non-pressure ulcer stage: unspecified non-pressure ulcer stage Qualified Code(s): E11.621 - Type 2 diabetes mellitus with foot ulcer; L97.419 - Non-pressure chronic ulcer of right heel and midfoot with unspecified severity (2) Osteomyelitis of right foot Qualifiers: Osteomyelitis type: other acute Qualified Code(s): M86.171 - Other acute osteomyelitis, right ankle and foot (3) Diabetes Qualifiers: Diabetes mellitus type: type 2 Diabetes mellitus watermaster insulin use: with long-term use Diabetes mellitus complication status: with circulatory complication Diabetes mellitus complication detail: with other circulatory complications Qualified Code(s): E11.59 - Type 2 diabetes mellitus with other circulatory complications; Z79.4 - retirement (current) use of insulin (4) HTN (hypertension) Qualifiers: Hypertension type: essential hypertension Qualified Code(s): I10 - Essential (primary) hypertension (5) HLD (hyperlipidemia) Qualifiers: Hyperlipidemia type: mixed hyperlipidemia Qualified Code(s): E78.2 - Mixed hyperlipidemia (7) A-fib Qualifiers: Atrial fibrillation type: chronic Qualified Code(s): I48.2 - Chronic atrial fibrillation
[2018-02-20] MEDS: Doxycycline 100 MG in 0.9 % Sodium Chloride Mini Bag 100 ML IVPB SCH (17:58)
--- NOTE | 2018-02-20 18:28 | Electrocardiograph Report ---
[place] [id number] Test Date: 2018-02-19 Pat Name: Elmer Jones Department: EXAM3 Room: 3A23 Gender: M [place] Expert: : 1965 Requested By: Brandon Tinoco Order Number: [id number] Reading MD: Yg Jaime Measurements Intervals [place] Rate: 101 P: 72 KS: 185 QRS: 101 QRSD: 81 T: 41 QT: 312 QTc: 405 Interpretive Statements Sinus tachycardia Right axis deviation Low voltage, precordial leads Electronically Signed On 02-20-2018 18:26:31 EDT by Yg Jaime
[2018-02-21] MEDS: Piperacillin/Tazobactam 3.375 GM in 0.9 % Sodium Chloride Mini Bag 100 ML IVPB SCH ×3 (04:53→20:47)
[2018-02-21] MEDS: Doxycycline 100 MG in 0.9 % Sodium Chloride Mini Bag 100 ML IVPB SCH ×2 (05:40→17:14)
[2018-02-21] MEDS: Heparin 25,000 UNIT/500 ML D5W 25,000 UNIT/500 ML BAG IVC SCH ×2 (08:34→13:15)
[2018-02-21] MEDS: Insulin LISPRO 300 UNITS/3 ML VIAL SQ SCH ×4 (08:36→20:48)
[2018-02-21] MEDS: Lisinopril 20 MG TABLET PO SCH (08:37)
[2018-02-21] MEDS: Furosemide 40 MG TABLET PO SCH ×2 (08:37→17:14)
[2018-02-21 08:47] LABS: INR 1.5; Prothrombin Time 16.6 Seconds (9.4-12.1)
[2018-02-21 09:15] LABS: Basophils % 0.2 %; Eosinophils # 0.9 K/mcL (0.0-0.6); Eosinophils % 10.5 %; Hematocrit 28.9 % (37.5-50.1); Immature Granulocytes % 0.5 % (0-4); Lymphocytes # 2.5 K/mcL (0.6-4.6); Lymphocytes % 28.5 %; Mean Corpuscular HGB Conc 31.1 g/dL (31.6-35.5); Mean Corpuscular Hemoglobin 27.3 pg (28.0-33.3); Mean Corpuscular Volume 87.6 fL (83.0-100.0); Mean Platelet Volume 11.6 fL (9.4-12.4); Monocytes # 0.7 K/mcL (0.0-1.3); Monocytes % 7.9 %; Neutrophils # 4.7 K/mcL (1.6-8.9); Platelet Count 200 K/mcL (140-400); Red Cell Distribution Width 15.7 % (11.5-14.5); Segmented Neutrophils % 52.4 %
[2018-02-21 09:32] LABS: BUN/Creatinine Ratio 13 (6-26); Blood Urea Nitrogen 19 mg/dL (6-20); Calcium 9.1 mg/dL (8.6-10.3); Carbon Dioxide 24 mEq/L (23-29); Chloride 106 mEq/L (98-107); Glucose 182 mg/dL (70-105); Osmolality,Calculated 295 (280-300); Potassium 4.4 mEq/L (3.5-5.1); Sodium 139 mEq/L (136-145); eGFR For Non-African Americans 50 (> 60)
--- NOTE | 2018-02-21 17:11 | Discharge Summary ---
Orders not resulted at time of discharge: Pending orders 02/21/18 23:30 Heparin anti-factor XA UFH [COAG] Timed Date of Encounter: 02/21/18 - Discharge Diagnosis (1) Diabetic foot ulcer Status: Acute Qualifiers: Diabetic foot ulcer location: midfoot Diabetes mellitus type: type 2 Laterality: right Non-pressure ulcer stage: unspecified non-pressure ulcer stage Qualified Code(s): E11.621 - Type 2 diabetes mellitus with foot ulcer; L97.419 - Non-pressure chronic ulcer of right heel and midfoot with unspecified severity (2) Osteomyelitis of right foot Status: Suspected Qualifiers: Osteomyelitis type: other acute Qualified Code(s): M86.171 - Other acute osteomyelitis, right ankle and foot (3) Diabetes Status: Chronic Qualifiers: Diabetes mellitus type: type 2 Diabetes mellitus usp insulin use: with usp use Diabetes mellitus complication status: with circulatory complication Diabetes mellitus complication detail: with other circulatory complications Qualified Code(s): E11.59 - Type 2 diabetes mellitus with other circulatory complications; Z79.4 - [facility] (current) use of insulin (4) HTN (hypertension) Status: Chronic Qualifiers: Hypertension type: essential hypertension Qualified Code(s): I10 - Essential (primary) hypertension (5) HLD (hyperlipidemia) Status: Chronic Qualifiers: Hyperlipidemia type: mixed hyperlipidemia Qualified Code(s): E78.2 - Mixed hyperlipidemia (6) History of pulmonary embolism Status: Chronic (7) A-fib Status: Chronic Qualifiers: Atrial fibrillation type: chronic Qualified Code(s): I48.2 - Chronic atrial fibrillation (8) CKD (chronic kidney disease), stage III Status: Chronic (9) DVT prophylaxis Status: Acute Hospital course: Mr. Jones is a 52 year old male - Time Spent with Patient Total time spent providing and/or coordinating discharge services: - Discharge Medications Prescriptions: Amoxicillin/Clavulanate [Augmentin] 875 mg PO BIDWM 14 Days #28 tablet Doxycycline 100 mg PO BID 14 Days #28 capsule Home Medications: Acetaminophen [Tylenol] 500 mg PO HS 12/02/16 [History] Carvedilol Phosphate [Coreg Cr] 80 mg PO DAILY 12/02/16 [History] Fluticasone/Salmeterol [Advair 250-50 Diskus] 1 each IH BID PRN 12/02/16 [ History] Furosemide [Lasix] 40 mg PO BID 12/02/16 [History] Insulin Glargine,Hum.rec.anlog [Lantus Solostar] 46 units SQ BID 12/02/16 [ History] Metformin HCl [Glucophage] 1,000 mg PO BID 12/02/16 [History] Pentoxifylline 400 mg PO BID 12/02/16 [History] Potassium Chloride 20 meq PO DAILY 12/02/16 [History] Pramipexole [Mirapex] 0.25 mg PO BID 12/02/16 [History] Loratadine [Claritin] 10 mg PO DAILY tablet 11/17/17 [Rx] Albuterol Sulfate [Ventolin Hfa] 2 puff IH Q4H PRN 01/05/18 [History] Atorvastatin [Lipitor] 40 mg PO HS 01/05/18 [History] Insulin LISPRO [HumaLOG] 10 units SQ TIDWM 01/05/18 [History] Lansoprazole [Prevacid] 30 mg PO DAILY 01/05/18 [History] Lisinopril [Zestril] 20 mg PO DAILY 01/05/18 [History] Warfarin [Coumadin] 6 mg PO MOWEFR 01/05/18 [History] Warfarin [Coumadin] 8 mg PO SUTUTHSA 01/05/18 [History] Amoxicillin/Clavulanate [Augmentin] 875 mg PO BIDWM 14 Days #28 tablet 02/21/18 [Rx] Doxycycline 100 mg PO BID 14 Days #28 capsule 02/21/18 [Rx] Allergies/Adverse Reactions: 3 Allergy/AdvReac Type Severity Reaction Status Date / Time vancomycin Allergy Intermediate Itching Verified 01/05/18 19:34 peanut Allergy Anaphylaxis Verified 03/25/17 00:00 cephalexin [From Keflex] AdvReac Rash Verified 03/25/17 00:00 levofloxacin AdvReac Rash Verified 03/25/17 00:00 Sulfa (Sulfonamide AdvReac Rash Verified 03/25/17 00:00 Antibiotics) Date of admission: 02/19/18 12:06 Primary care physician: Jaime Paula MD - Constitutional Vitals: Temp Pulse Resp BP Pulse Ox 97.6 F 77 15 129/77 97 02/21/18 14:35 02/21/18 14:35 02/21/18 14:35 02/21/18 14:35 02/21/18 14:35 - Patient Status Disposition: Home, Self-Care Condition: Good - Discharge Instructions Follow Up With: Jaime Paula MD [Primary Care Provider] -
--- NOTE | 2018-02-21 17:22 | Infectious Disease Progress No ---
Date of Encounter: 02/21/18 Time of Encounter: 11:00 - Assessment and Plan (1) Cellulitis of right foot Current Visit: No Status: Acute Location: Right foot. Causative organism: K. oxytoca. Previous wound cultures were positive for MRSA and E. cloacae. Likely secondary to chronic non-healing ulcer. X-ray and MRI negative for OM. Inflammatory markers are elevated, but not changed from previous. Continue doxycycline 100mg IV Q12H. (day 2) Continue Zosyn 3.375 grams IV Q8H. (day 3) Duration of treatment depends on the clinical picture, but likely a total of 14 days. Can switch to PO Augmentin 875mg PO BID and doxycycline 100mg PO BID when ready for discharge. Monitor renal function and dose-adjust antibiotics. (2) Chronic ulcer of right foot with fat layer exposed Current Visit: Yes Status: Acute Location: Plantar aspect right foot. Likely secondary to Charcot. Podiatry consulted. Wound care and activity per the Podiatry team. Antibiotic recommendations as above. (3) CKD (chronic kidney disease), stage III Current Visit: Yes Status: Chronic Monitor renal function and dose-adjust antibiotics. (4) Allergy to multiple antibiotics Current Visit: No Status: Acute Allergies to Vancomycin, Keflex, and Levaquin (PO form only). (5) Charcot's joint of foot Current Visit: No Status: Chronic Qualifiers: Laterality: right Qualified Code(s): M14.671 - Charcot's joint, right ankle and foot (6) AF (atrial fibrillation) Current Visit: No Status: Chronic Qualifiers: Atrial fibrillation type: chronic Qualified Code(s): I48.2 - Chronic atrial fibrillation (7) History of MRSA infection Current Visit: Yes Status: Acute Previous foot wound cultures positive for MRSA. Continue contact precautions per protocol. Will continue MRSA coverage with doxycycline for now. (8) Diabetes mellitus type 2 in obese Current Visit: Yes Status: Acute Hgb A1C 7.7. Recommend aggressive glucose monitoring and control to promote wound healing and prevent re-infection. Management per the primary team. (9) Morbid obesity with BMI of 45.0-49.9, adult Current Visit: Yes Status: Acute - Subjective Interval history: Patient seen and examined. No acute events noted overnight. Patient states that overall he feels well. Denies fevers, chills, or rigors. Denies chest pain, shortness of breath, or cough. Denies nausea, vomiting, or constipation. Reports loose stool yesterday, but none today. Denies abdominal pain, urinary complaints, or appetite changes. Denies oral thrush or new skin lesions. Denies pain at this time. Infect Dis PN-Objective Data - Labs CBC & Chem 7: 02/21/18 08:41 02/21/18 08:41 Labs: Laboratory Results - last 24 hr 02/20/18 02/20/18 02/20/18 07:25 21:09 21:45 WBC RBC Hgb Hct MCV MCH MCHC RDW Plt Count MPV Immature Gran % Seg Neutrophils % Lymphocytes % Monocytes % Eosinophils % Basophils % Neutrophils # Lymphocytes # Monocytes # Eosinophils # Basophils # PT INR Heparin Anti-Xa, Unfract 0.30 Sodium Potassium Chloride Carbon Dioxide BUN Creatinine Est GFR ( Amer) Est GFR (Non-Af Amer) BUN/Creatinine Ratio Glucose POC Glucose 143 H 220 H Calculated Osmolality Calcium 02/21/18 02/21/18 02/21/18 08:16 08:41 08:41 WBC 8.9 RBC 3.30 L Hgb 9.0 L Hct 28.9 L MCV 87.6 MCH 27.3 L MCHC 31.1 L RDW 15.7 H Plt Count 200 MPV 11.6 Immature Gran % 0.5 Seg Neutrophils % 52.4 Lymphocytes % 28.5 Monocytes % 7.9 Eosinophils % 10.5 Basophils % 0.2 Neutrophils # 4.7 Lymphocytes # 2.5 Monocytes # 0.7 Eosinophils # 0.9 H Basophils # 0.0 PT 16.6 H INR 1.5 Heparin Anti-Xa, Unfract Sodium 139 Potassium 4.4 Chloride 106 Carbon Dioxide 24 BUN 19 Creatinine 1.49 H Est GFR ( Amer) > 60 Est GFR (Non-Af Amer) 50 L BUN/Creatinine Ratio 13 Glucose 182 H POC Glucose Calculated Osmolality 295 Calcium 9.1 02/21/18 16:15 WBC RBC Hgb Hct MCV MCH MCHC RDW Plt Count MPV Immature Gran % Seg Neutrophils % Lymphocytes % Monocytes % Eosinophils % Basophils % Neutrophils # Lymphocytes # Monocytes # Eosinophils # Basophils # PT INR Heparin Anti-Xa, Unfract Sodium Potassium Chloride Carbon Dioxide BUN Creatinine Est GFR ( Amer) Est GFR (Non-Af Amer) BUN/Creatinine Ratio Glucose POC Glucose 230 H Calculated Osmolality Calcium Exam - Constitutional Vitals: Temp Pulse Resp BP Pulse Ox 97.6 F 77 15 129/77 97 02/21/18 14:35 02/21/18 14:35 02/21/18 14:35 02/21/18 14:35 02/21/18 14:35 General appearance: cooperative, morbidly obese, no acute distress - Head Head exam: Present: atraumatic, normal inspection, normocephalic - Eye Eye exam: Present: EOMI, normal appearance, PERRL Pupils: Present: normal accommodation - ENT ENT exam: Present: mucous membranes moist - Neck Neck exam: Present: normal inspection - Respiratory Respiratory exam: Present: CTAB. Absent: rales, respiratory distress, rhonchi, wheezes - Cardiovascular Cardiovascular exam: Present: RRR, +S1, +S2 - GI/Abdominal GI/Abdominal exam: Present: distended (obese), normal bowel sounds, soft. Absent: tenderness - Extremities Exam Extremities exam: Absent: joint swelling, normal inspection (Charcot deformity noted to the right foot. DFU noted to the plantar aspect of the right foot without redness, warmth, or drainage noted. No foul odor noted.), pedal edema, tenderness - Neurological Exam Neurological exam: Present: alert, oriented X3, no focal deficits - Psychiatric Psychiatric exam: Present: normal affect, normal mood - Skin Skin exam: Present: dry, intact, normal color, warm Consult Discharge Plan - Plan Referrals: Jaime Paula MD [Primary Care Provider] - Prescriptions: Amoxicillin/Clavulanate [Augmentin] 875 mg PO BIDWM 14 Days #28 tablet Doxycycline 100 mg PO BID 14 Days #28 capsule - Attending Attestation I examined this patient and my medical decision-making was reviewed with the Resident Physician. I agree with the documented findings, disposition and treatment plan as described except to the extent set forth below.
[2018-02-21] MEDS ORDERED: *HR* Warfarin 3 MG TABLET PO ONE (18:00)
[2018-02-21] MEDS ORDERED: Warfarin perPT PO PRN (18:00)
--- NOTE | 2018-02-21 19:49 | Internal Med Progress Note ---
Hospitalist Progress Note - Encounter Date of Encounter: 02/21/18 Time of Encounter: 11:00 - Subjective Interval History: Patient restarted on Coumadin after surgical procedure and on heparin drip therefore awaiting for therapeutic INR or history of A. fib with DVT/PE ID recommendations and for oral antibiotic choice as a result of sensitivities are complete - Exam Vitals: Temp Pulse Resp BP Pulse Ox 97.4 F L 76 16 137/57 97 02/21/18 19:01 02/21/18 19:01 02/21/18 19:01 02/21/18 19:01 02/21/18 19:01 Exam: Gen.: Nonacute distress, alert and oriented 3 ENT: Mucosal membranes moist Respiratory: Lungs are clear to auscultation bilaterally without any wheezing rhonchi or rales Cardiovascular: Normal S1 and S2 regular rate rhythm no murmurs rubs or gallops Abdomen: Soft, nontender and nondistended with positive bowel sounds Extremities: No lower extremity edema Skin: Normal color - Assessment and Plan (1) DVT prophylaxis Current Visit: Yes Status: Acute Assessment and Plan: Patient's Coumadin was recently restarted at the surgical procedure currently being bridged with heparin drip INR subtherapeutic at 1.5 (2) Diabetic foot ulcer Current Visit: Yes Status: Acute Assessment and Plan: Patient was taken to the OR for incision and drainage Recommendations per infectious disease to continue discharged patient on 14 day course of doxycycline and Augmentin (3) Osteomyelitis of right foot Current Visit: Yes Status: Suspected Assessment and Plan: MRI of the foot revealed minimal superficial marrow edema noted along the plantar aspect of cuboid in the region of the ulcer which could be reactive edema; mild/superficial ostomy colitis cannot be excluded with recommendations for repeat MR in a few months if symptoms not improved Patient went for incision and drainage today per podiatry recommendations (4) Diabetes Current Visit: Yes Status: Chronic Assessment and Plan: Continue SSI, accuchecks achs and diabetic diet. (5) HTN (hypertension) Current Visit: Yes Status: Chronic Assessment and Plan: Controlled; continue home medications. (6) HLD (hyperlipidemia) Current Visit: Yes Status: Chronic Assessment and Plan: Continue statin (7) History of pulmonary embolism Current Visit: Yes Status: Chronic Assessment and Plan: History of DVT and PE Continue heparin drip (8) A-fib Current Visit: Yes Status: Chronic Assessment and Plan: Rate controlled; on heparin drip as above (9) CKD (chronic kidney disease), stage III Current Visit: Yes Status: Chronic - Time Spent with Patient Total time spent is greater than 50% in coordination of care (as documented) at patient's floor/unit and/or counseling patient: Internal Medicine: Result - Labs CBC & Chem 7: 02/21/18 08:41 02/21/18 08:41 Labs: Short CBC 02/21/18 Range/Units 08:41 WBC 8.9 (4.3-11.1) K/mcL Hgb 9.0 L (12.9-16.9) g/dL Hct 28.9 L (37.5-50.1) % Plt Count 200 (140-400) K/mcL Neutrophils # 4.7 (1.6-8.9) K/mcL BMP 02/21/18 08:41 Sodium 139 Potassium 4.4 Chloride 106 Carbon Dioxide 24 BUN 19 Creatinine 1.49 H Glucose 182 H Calcium 9.1 - ABG Interpretation ABG results: PT/INR, D-dimer PT 16.6 Seconds (9.4-12.1) H 02/21/18 08:16 Consult Discharge Plan - Plan Referrals: Jaime Paula MD [Primary Care Provider] - Prescriptions: Amoxicillin/Clavulanate [Augmentin] 875 mg PO BIDWM 14 Days #28 tablet Doxycycline 100 mg PO BID 14 Days #28 capsule (2) Diabetic foot ulcer Qualifiers: Diabetic foot ulcer location: midfoot Diabetes mellitus type: type 2 Laterality: right Non-pressure ulcer stage: unspecified non-pressure ulcer stage Qualified Code(s): E11.621 - Type 2 diabetes mellitus with foot ulcer; L97.419 - Non-pressure chronic ulcer of right heel and midfoot with unspecified severity (3) Osteomyelitis of right foot Qualifiers: Osteomyelitis type: other acute Qualified Code(s): M86.171 - Other acute osteomyelitis, right ankle and foot (4) Diabetes Qualifiers: Diabetes mellitus type: type 2 Diabetes mellitus prison insulin use: with vice president underwriting use Diabetes mellitus complication status: with circulatory complication Diabetes mellitus complication detail: with other circulatory complications Qualified Code(s): E11.59 - Type 2 diabetes mellitus with other circulatory complications; Z79.4 - senior care (current) use of insulin (5) HTN (hypertension) Qualifiers: Hypertension type: essential hypertension Qualified Code(s): I10 - Essential (primary) hypertension (6) HLD (hyperlipidemia) Qualifiers: Hyperlipidemia type: mixed hyperlipidemia Qualified Code(s): E78.2 - Mixed hyperlipidemia (8) A-fib Qualifiers: Atrial fibrillation type: chronic Qualified Code(s): I48.2 - Chronic atrial fibrillation
[2018-02-22] MEDS: Piperacillin/Tazobactam 3.375 GM in 0.9 % Sodium Chloride Mini Bag 100 ML IVPB SCH ×2 (04:32→11:49)
[2018-02-22 06:30] LABS: INR 1.4; Prothrombin Time 15.5 Seconds (9.4-12.1)
[2018-02-22] MEDS: Doxycycline 100 MG in 0.9 % Sodium Chloride Mini Bag 100 ML IVPB SCH (06:37)
[2018-02-22] MEDS: Heparin 25,000 UNIT/500 ML D5W 25,000 UNIT/500 ML BAG IVC SCH (06:37)
[2018-02-22] MEDS: Insulin LISPRO 300 UNITS/3 ML VIAL SQ SCH ×3 (07:47→16:35)
[2018-02-22] MEDS: Lisinopril 20 MG TABLET PO SCH (09:10)
[2018-02-22] MEDS: Furosemide 40 MG TABLET PO SCH ×2 (09:10→16:35)
[2018-02-22 10:48] LABS: Basophils % 0.5 %; Eosinophils # 0.7 K/mcL (0.0-0.6); Eosinophils % 9.3 %; Hematocrit 27.3 % (37.5-50.1); Hemoglobin 8.5 g/dL (12.9-16.9); Immature Granulocytes % 0.3 % (0-4); Lymphocytes # 1.8 K/mcL (0.6-4.6); Lymphocytes % 24.2 %; Mean Corpuscular HGB Conc 31.1 g/dL (31.6-35.5); Mean Corpuscular Hemoglobin 27.2 pg (28.0-33.3); Mean Corpuscular Volume 87.2 fL (83.0-100.0); Mean Platelet Volume 11.4 fL (9.4-12.4); Monocytes # 0.6 K/mcL (0.0-1.3); Monocytes % 7.9 %; Neutrophils # 4.4 K/mcL (1.6-8.9); Platelet Count 232 K/mcL (140-400); Red Blood Count 3.13 M/mcL (4.19-5.50); Red Cell Distribution Width 15.7 % (11.5-14.5); Segmented Neutrophils % 57.8 %
[2018-02-22 10:57] LABS: Potassium 4.2 mEq/L (3.5-5.1)
--- NOTE | 2018-02-22 12:21 | Discharge Summary ---
- NOTES TO OUTPATIENT PROVIDER Notes to Outpatient Provider: Follow-up podiatry Orders not resulted at time of discharge: Pending orders 02/22/18 13:00 Heparin anti-factor XA UFH [COAG] Routine Date of Encounter: 02/22/18 Time of Encounter: 11:00 - Discharge Diagnosis (1) Diabetic foot ulcer Priority: Primary Status: Acute Qualifiers: Diabetic foot ulcer location: midfoot Diabetes mellitus type: type 2 Laterality: right Non-pressure ulcer stage: unspecified non-pressure ulcer stage Qualified Code(s): E11.621 - Type 2 diabetes mellitus with foot ulcer; L97.419 - Non-pressure chronic ulcer of right heel and midfoot with unspecified severity (2) Osteomyelitis of right foot Priority: Primary Status: Suspected Qualifiers: Osteomyelitis type: other acute Qualified Code(s): M86.171 - Other acute osteomyelitis, right ankle and foot (3) Diabetes Priority: Secondary Status: Chronic Qualifiers: Diabetes mellitus type: type 2 Diabetes mellitus termination clerk insulin use: with [facility] use Diabetes mellitus complication status: with circulatory complication Diabetes mellitus complication detail: with other circulatory complications Qualified Code(s): E11.59 - Type 2 diabetes mellitus with other circulatory complications; Z79.4 - residential (current) use of insulin (4) HTN (hypertension) Priority: Secondary Status: Chronic Qualifiers: Hypertension type: essential hypertension Qualified Code(s): I10 - Essential (primary) hypertension (5) HLD (hyperlipidemia) Priority: Secondary Status: Chronic Qualifiers: Hyperlipidemia type: mixed hyperlipidemia Qualified Code(s): E78.2 - Mixed hyperlipidemia (6) History of pulmonary embolism Priority: Secondary Status: Chronic (7) A-fib Priority: Secondary Status: Chronic Qualifiers: Atrial fibrillation type: chronic Qualified Code(s): I48.2 - Chronic atrial fibrillation (8) CKD (chronic kidney disease), stage III Priority: Secondary Status: Chronic Hospital course: Patient is a 52-year-old male with past medical history significant for asthma, A. fib, CHF, DVT, diabetes mellitus, hyperlipidemia, hypertension, PE, CAD, diabetic foot wound. He was hospitalized last month for cellulitis and his chronic right foot wound. He also recently just completed a two-week course of antibiotics for his right foot wound. He presented today with the chief complaint of "not feeling well" with a concern that he was developing sepsis secondary to his foot wound. In the ER he was slightly tachycardic but afebrile, with a white count of 13.0. Clinically however he is not septic appearing. He was given 1 L of normal saline and 1 dose of clindamycin. X-ray of his right foot demonstrated ulceration and soft tissue swelling but no obvious bony involvement, x-ray unchanged from previous. During patients hospital stay podiatry was consulted and patient was taken to the OR for incision and drainage. Face is diseases also consulted with recommendations for discharging patient on a 14 day course of doxycycline and Augmentin. - Time Spent with Patient Total time spent providing and/or coordinating discharge services: Less than 30 minutes - Discharge Medications Prescriptions: Enoxaparin [Lovenox] 80 mg SQ Q12HR #120 syr Amoxicillin/Clavulanate [Augmentin] 875 mg PO BIDWM 14 Days #28 tablet Doxycycline 100 mg PO BID 14 Days #28 capsule Warfarin Sodium [Coumadin] 6 mg PO DAILY #30 tablet Home Medications: Acetaminophen [Tylenol] 500 mg PO HS 12/02/16 [History] Carvedilol Phosphate [Coreg Cr] 80 mg PO DAILY 12/02/16 [History] Fluticasone/Salmeterol [Advair 250-50 Diskus] 1 each IH BID PRN 12/02/16 [ History] Furosemide [Lasix] 40 mg PO BID 12/02/16 [History] Insulin Glargine,Hum.rec.anlog [Lantus Solostar] 46 units SQ BID 12/02/16 [ History] Metformin HCl [Glucophage] 1,000 mg PO BID 12/02/16 [History] Pentoxifylline 400 mg PO BID 12/02/16 [History] Potassium Chloride 20 meq PO DAILY 12/02/16 [History] Pramipexole [Mirapex] 0.25 mg PO BID 12/02/16 [History] Loratadine [Claritin] 10 mg PO DAILY tablet 11/17/17 [Rx] Albuterol Sulfate [Ventolin Hfa] 2 puff IH Q4H PRN 01/05/18 [History] Atorvastatin [Lipitor] 40 mg PO HS 01/05/18 [History] Insulin LISPRO [HumaLOG] 10 units SQ TIDWM 01/05/18 [History] Lansoprazole [Prevacid] 30 mg PO DAILY 01/05/18 [History] Lisinopril [Zestril] 20 mg PO DAILY 01/05/18 [History] Amoxicillin/Clavulanate [Augmentin] 875 mg PO BIDWM 14 Days #28 tablet 02/21/18 [Rx] Doxycycline 100 mg PO BID 14 Days #28 capsule 02/21/18 [Rx] Enoxaparin [Lovenox] 80 mg SQ Q12HR #120 syr 02/22/18 [Rx] Warfarin Sodium [Coumadin] 6 mg PO DAILY #30 tablet 02/22/18 [Rx] Allergies/Adverse Reactions: 3 Allergy/AdvReac Type Severity Reaction Status Date / Time vancomycin Allergy Intermediate Itching Verified 01/05/18 19:34 peanut Allergy Anaphylaxis Verified 03/25/17 00:00 cephalexin [From Keflex] AdvReac Rash Verified 03/25/17 00:00 levofloxacin AdvReac Rash Verified 03/25/17 00:00 Sulfa (Sulfonamide AdvReac Rash Verified 03/25/17 00:00 Antibiotics) Date of admission: 02/19/18 12:06 Primary care physician: Jaime Paula MD - Constitutional Vitals: Temp Pulse Resp BP Pulse Ox 97.9 F 81 18 150/83 98 02/22/18 10:41 02/22/18 10:41 02/22/18 10:41 02/22/18 10:41 02/22/18 10:41 Exam: Gen.: Nonacute distress, alert and oriented 3 Skin: Normal color - Patient Status Disposition: Home, Self-Care Condition: Good - Discharge Instructions Instructions: Diabetic Foot Ulcers (DC) Follow Up With: Jaime Paula MD [Primary Care Provider] - 02/28/18 10:15 am
[2018-02-22 15:55] VITALS: BP 146/64
--- NOTE | 2018-02-22 16:02 | Infectious Disease Progress No ---
Date of Encounter: 02/22/18 Time of Encounter: 16:00 - Assessment and Plan (1) Cellulitis of right foot Status: Acute Location: Right foot. Causative organism: K. oxytoca. Previous wound cultures were positive for MRSA and E. cloacae. Likely secondary to chronic non-healing ulcer. X-ray and MRI negative for OM. Inflammatory markers are elevated, but not changed from previous. Continue doxycycline 100mg IV Q12H. (day 3) Continue Zosyn 3.375 grams IV Q8H. (day 4) Duration of treatment depends on the clinical picture, but likely a total of 14 days. Can switch to PO Augmentin 875mg PO BID and doxycycline 100mg PO BID when ready for discharge. Monitor renal function and dose-adjust antibiotics. (2) Chronic ulcer of right foot with fat layer exposed Status: Acute Location: Plantar aspect right foot. Likely secondary to Charcot. Podiatry consulted. Wound care and activity per the Podiatry team. Antibiotic recommendations as above. (3) CKD (chronic kidney disease), stage III Status: Chronic Monitor renal function and dose-adjust antibiotics. (4) Allergy to multiple antibiotics Status: Acute Allergies to Vancomycin, Keflex, and Levaquin (PO form only). (5) Charcot's joint of foot Status: Chronic Qualifiers: Laterality: right Qualified Code(s): M14.671 - Charcot's joint, right ankle and foot (6) AF (atrial fibrillation) Status: Chronic Qualifiers: Atrial fibrillation type: chronic Qualified Code(s): I48.2 - Chronic atrial fibrillation (7) History of MRSA infection Status: Acute Previous foot wound cultures positive for MRSA. Continue contact precautions per protocol. Will continue MRSA coverage with doxycycline for now. (8) Diabetes mellitus type 2 in obese Status: Acute Hgb A1C 7.7. Recommend aggressive glucose monitoring and control to promote wound healing and prevent re-infection. Management per the primary team. (9) Morbid obesity with BMI of 45.0-49.9, adult Status: Acute - Subjective Interval history: Patient seen and examined. No acute events noted overnight. Patient states that overall he feels well. Denies fevers, chills, or rigors. Denies chest pain, shortness of breath, or cough. Denies nausea, vomiting, or constipation. Reports loose stool yesterday, but none today. Denies abdominal pain, urinary complaints, or appetite changes. Denies oral thrush or new skin lesions. Denies pain at this time. Pending discharge home. Infect Dis PN-Objective Data - Labs CBC & Chem 7: 02/22/18 10:02 02/22/18 10:02 Labs: Laboratory Results - last 24 hr 02/20/18 02/21/18 02/21/18 15:59 07:22 11:07 WBC RBC Hgb Hct MCV MCH MCHC RDW Plt Count MPV Immature Gran % Seg Neutrophils % Lymphocytes % Monocytes % Eosinophils % Basophils % Neutrophils # Lymphocytes # Monocytes # Eosinophils # Basophils # PT INR Heparin Anti-Xa, Unfract Sodium Potassium Chloride Carbon Dioxide BUN Creatinine Est GFR ( Amer) Est GFR (Non-Af Amer) BUN/Creatinine Ratio Glucose POC Glucose 204 H 187 H 195 H Calculated Osmolality Calcium 02/21/18 02/21/18 02/21/18 16:15 20:20 23:53 WBC RBC Hgb Hct MCV MCH MCHC RDW Plt Count MPV Immature Gran % Seg Neutrophils % Lymphocytes % Monocytes % Eosinophils % Basophils % Neutrophils # Lymphocytes # Monocytes # Eosinophils # Basophils # PT INR Heparin Anti-Xa, Unfract 0.26 L Sodium Potassium Chloride Carbon Dioxide BUN Creatinine Est GFR ( Amer) Est GFR (Non-Af Amer) BUN/Creatinine Ratio Glucose POC Glucose 230 H 227 H Calculated Osmolality Calcium 02/22/18 02/22/18 02/22/18 05:23 06:58 07:29 WBC RBC Hgb Hct MCV MCH MCHC RDW Plt Count MPV Immature Gran % Seg Neutrophils % Lymphocytes % Monocytes % Eosinophils % Basophils % Neutrophils # Lymphocytes # Monocytes # Eosinophils # Basophils # PT 15.5 H INR 1.4 Heparin Anti-Xa, Unfract 0.44 Sodium Potassium Chloride Carbon Dioxide BUN Creatinine Est GFR ( Amer) Est GFR (Non-Af Amer) BUN/Creatinine Ratio Glucose POC Glucose 229 H Calculated Osmolality Calcium 02/22/18 02/22/18 02/22/18 10:02 10:02 11:27 WBC 7.6 RBC 3.13 L Hgb 8.5 L Hct 27.3 L MCV 87.2 MCH 27.2 L MCHC 31.1 L RDW 15.7 H Plt Count 232 MPV 11.4 Immature Gran % 0.3 Seg Neutrophils % 57.8 Lymphocytes % 24.2 Monocytes % 7.9 Eosinophils % 9.3 Basophils % 0.5 Neutrophils # 4.4 Lymphocytes # 1.8 Monocytes # 0.6 Eosinophils # 0.7 H Basophils # 0.0 PT INR Heparin Anti-Xa, Unfract Sodium 139 Potassium 4.2 Chloride 104 Carbon Dioxide 27 BUN 19 Creatinine 1.64 H Est GFR ( Amer) 54 L Est GFR (Non-Af Amer) 45 L BUN/Creatinine Ratio 12 Glucose 205 H POC Glucose 210 H Calculated Osmolality 296 Calcium 9.0 02/22/18 12:59 WBC RBC Hgb Hct MCV MCH MCHC RDW Plt Count MPV Immature Gran % Seg Neutrophils % Lymphocytes % Monocytes % Eosinophils % Basophils % Neutrophils # Lymphocytes # Monocytes # Eosinophils # Basophils # PT INR Heparin Anti-Xa, Unfract 0.38 Sodium Potassium Chloride Carbon Dioxide BUN Creatinine Est GFR ( Amer) Est GFR (Non-Af Amer) BUN/Creatinine Ratio Glucose POC Glucose Calculated Osmolality Calcium Exam - Constitutional Vitals: Temp Pulse Resp BP Pulse Ox 97.6 F 76 17 146/64 98 02/22/18 15:54 02/22/18 15:54 02/22/18 15:54 02/22/18 15:54 02/22/18 15:54 General appearance: cooperative, morbidly obese, no acute distress - Head Head exam: Present: atraumatic, normal inspection, normocephalic - Eye Eye exam: Present: EOMI, normal appearance, PERRL Pupils: Present: normal accommodation - ENT ENT exam: Present: mucous membranes moist - Neck Neck exam: Present: normal inspection - Respiratory Respiratory exam: Present: CTAB. Absent: rales, respiratory distress, rhonchi, wheezes - Cardiovascular Cardiovascular exam: Present: RRR, +S1, +S2 - GI/Abdominal GI/Abdominal exam: Present: distended (obese), normal bowel sounds, soft. Absent: tenderness - Extremities Exam Extremities exam: Present: pedal edema (1+ BLE). Absent: joint swelling, normal inspection (Venous stasis dermatitis noted to the BLE.), tenderness Additional comments: Right foot dressing C/D/I. - Neurological Exam Neurological exam: Present: alert, oriented X3, no focal deficits - Psychiatric Psychiatric exam: Present: normal affect, normal mood - Skin Skin exam: Present: dry, intact, normal color, warm Consult Discharge Plan - Plan Instructions: Diabetic Foot Ulcers (DC) Referrals: Jaime Paula MD [Primary Care Provider] - 02/28/18 10:15 am Prescriptions: Enoxaparin [Lovenox] 80 mg SQ Q12HR #120 syr Amoxicillin/Clavulanate [Augmentin] 875 mg PO BIDWM 14 Days #28 tablet Doxycycline 100 mg PO BID 14 Days #28 capsule Warfarin Sodium [Coumadin] 6 mg PO DAILY #30 tablet - Attending Attestation I examined this patient and my medical decision-making was reviewed with the Resident Physician. I agree with the documented findings, disposition and treatment plan as described except to the extent set forth below.
[2018-02-22] MEDS ORDERED: *HR* Enoxaparin 80 MG/0.8 ML SYRINGE SQ SCH (18:00)
[2018-02-22] MEDS ORDERED: *HR* Warfarin 4 MG TABLET PO ONE (18:00)
== END 2018-02-22 18:35 | disposition home or self-care (01) | DRG 638 ==
LOC: EMEROOARM 00:07 → 3ANU 00:07 → SUATTDRO 12:06
PROVIDERS: ADMIT Pediatrics; ATTEND Hospitalist

== ENCOUNTER 2018-03-09 00:36 | Inpatient (IN) ==
[2018-03-09] MEDS ORDERED: 0.9 % Sodium Chloride 1,000 ML IVC ONE ×2 (00:53→03:30)
[2018-03-09 01:39] LABS: Basophils # 0.1 K/mcL (0.0-0.2); Basophils % 0.5 %; Eosinophils # 0.6 K/mcL (0.0-0.6); Eosinophils % 3.9 %; Hematocrit 31.2 % (37.5-50.1); Hemoglobin 9.4 g/dL (12.9-16.9); Immature Granulocytes % 0.5 % (0-4); Lymphocytes # 2.2 K/mcL (0.6-4.6); Lymphocytes % 14.1 %; Mean Corpuscular HGB Conc 30.1 g/dL (31.6-35.5); Mean Corpuscular Hemoglobin 26.8 pg (28.0-33.3); Mean Corpuscular Volume 88.9 fL (83.0-100.0); Mean Platelet Volume 11.4 fL (9.4-12.4); Monocytes # 1.2 K/mcL (0.0-1.3); Monocytes % 7.7 %; Neutrophils # 11.4 K/mcL (1.6-8.9); Platelet Count 267 K/mcL (140-400); Red Blood Count 3.51 M/mcL (4.19-5.50); Red Cell Distribution Width 15.2 % (11.5-14.5); Segmented Neutrophils % 73.3 %
[2018-03-09 01:48] LABS: INR 1.6; Prothrombin Time 18.3 Seconds (9.4-12.1)
[2018-03-09 01:51] LABS: Activated Partial Thrombo Time 34.6 Seconds (26.0-36.0)
[2018-03-09 02:00] LABS: Alanine Aminotransferase 16 Units/L (7-52); Albumin 3.7 g/dL (3.5-5.7); Albumin/Globulin Ratio 1.3 (1.1-2.2); Alkaline Phosphatase 100 Units/L (34-104); Aspartate Amino Transferase 12 Units/L (13-39); BUN/Creatinine Ratio 14 (6-26); Bilirubin,Direct 0.1 mg/dL (0.0-0.2); Bilirubin,Indirect 0.1 mg/dL (0.0-1.2); Bilirubin,Total 0.2 mg/dL (0.3-1.0); Blood Urea Nitrogen 20 mg/dL (6-20); Calcium 9.2 mg/dL (8.6-10.3); Carbon Dioxide 28 mEq/L (23-29); Chloride 107 mEq/L (98-107); Globulin 2.9 g/dL (2.4-3.5); Glucose 215 mg/dL (70-105); Magnesium 1.4 mg/dL (1.6-2.6); Osmolality,Calculated 301 (280-300); Sodium 141 mEq/L (136-145); Total Protein 6.6 g/dL (6.4-8.9); Troponin I < 0.03 ng/mL (< 0.04); eGFR For Non-African Americans 54 (> 60)
--- NOTE | 2018-03-09 02:40 | Emergency Department Note ---
Disposition Clinical Impression: Fever Qualifiers: Fever type: due to other condition Qualified Code(s): R50.81 - Fever presenting with conditions classified elsewhere Diabetic foot ulcer Qualifiers: Diabetic foot ulcer location: midfoot Diabetes mellitus type: type 2 Laterality: right Non-pressure ulcer stage: unspecified non-pressure ulcer stage Qualified Code(s): E11.621 - Type 2 diabetes mellitus with foot ulcer Disposition: Admitted As Inpatient Condition: Fair Time of Disposition: 07:32 General Adult HPI - General Chief complaint: ED Fever Stated complaint: R foot pain Time Seen by Provider: 03/09/18 00:51 Source: EMS Limitations: no limitations Nursing Notes Reviewed: Yes Vital Signs Reviewed: Yes - History of Present Illness HPI Narrative: 52yo male presents from home for evaluation of concerns for sepsis. He has a history of sepsis secondary to recurrent diabetic ulcers on his feet. He felt ill and had a temperature 102 at home prior to arrival for which he took 500 mg of Tylenol. He states this is typically how sepsis starts for him. He currently has a wound on the plantar surface of his right foot managed by podiatry. He was at outpatient follow-up today where Dr. Hodgson indicated he was doing well and was healing well. He has a wound vacuum on this foot. He otherwise denies any other symptoms or concerns. ROS: Positive: As above Negative: Foot pain, redness or streaking up his leg, trauma. No cough, congestion. No chest pain or shortness of breath. No dysuria or change in bowel habits. Pain Scale: 0 - Related Data Home Medications Medication Instructions Recorded Confirmed Acetaminophen [Tylenol] 500 mg PO HS 12/02/16 02/19/18 Carvedilol Phosphate [Coreg Cr] 80 mg PO DAILY 12/02/16 02/19/18 Fluticasone/Salmeterol [Advair 1 each IH BID PRN 12/02/16 02/19/18 250-50 Diskus] Furosemide [Lasix] 40 mg PO BID 12/02/16 02/19/18 Insulin Glargine,Hum.rec.anlog 46 units SQ BID 12/02/16 02/19/18 [Lantus Solostar] Metformin HCl [Glucophage] 1,000 mg PO BID 12/02/16 02/19/18 Pentoxifylline 400 mg PO BID 12/02/16 02/19/18 Potassium Chloride 20 meq PO DAILY 12/02/16 02/19/18 Pramipexole [Mirapex] 0.25 mg PO BID 12/02/16 02/19/18 Albuterol Sulfate [Ventolin Hfa] 2 puff IH Q4H PRN 01/05/18 02/19/18 Atorvastatin [Lipitor] 40 mg PO HS 01/05/18 02/19/18 Insulin LISPRO [HumaLOG] 10 units SQ TIDWM 01/05/18 02/19/18 Lansoprazole [Prevacid] 30 mg PO DAILY 01/05/18 02/19/18 Lisinopril [Zestril] 20 mg PO DAILY 01/05/18 02/19/18 Previous Rx's Medication Instructions Recorded Loratadine [Claritin] 10 mg PO DAILY tablet 11/17/17 Amoxicillin/Clavulanate [Augmentin] 875 mg PO BIDWM 14 Days #28 tablet 02/21/18 Doxycycline 100 mg PO BID 14 Days #28 capsule 02/21/18 Enoxaparin [Lovenox] 80 mg SQ Q12HR #120 syr 02/22/18 Warfarin Sodium [Coumadin] 6 mg PO DAILY #30 tablet 02/22/18 Allergies Allergy/AdvReac Type Severity Reaction Status Date / Time vancomycin Allergy Intermediate Itching Verified 01/05/18 19:34 peanut Allergy Anaphylaxis Verified 03/25/17 00:00 cephalexin [From Keflex] AdvReac Rash Verified 03/25/17 00:00 levofloxacin AdvReac Rash Verified 03/25/17 00:00 Sulfa (Sulfonamide AdvReac Rash Verified 03/25/17 00:00 Antibiotics) All systems ED: reviewed and negative except as stated. Review of Systems: As Per HPI Past Medical History - Past Medical History Medical history: Reports: asthma, atrial fibrillation, CHF, DVT, diabetes, hyperlipidemia, hypertension, pulmonary embolus, renal disease, venous stasis, other Surgical history: Reports: herniorrhaphy Psychiatric history: Reports: no psych history - Social History Smoking Status: Never smoker Smokeless Tobacco Status: No Alcohol use: Reports: none Drug use: Reports: none Physical Exam Vital Signs Reviewed General: Patient is alert, oriented, and in no acute distress. Head: atraumatic, normocephalic Eye: normal appearance, PERRL, EOMI, no scleral icterus, no conjunctival injection ENT: mucous membranes moist, normal external ear exam Neck: normal inspection, trachea midline, full ROM Chest: normal inspection, symmetric chest rise Respiratory: Good respiratory effort. Bilateral breath sounds are clear without wheezing, crackles, or rhonchi. Cardiovascular: Regular rate and rhythm. No clicks, rubs, gallops, or murmors. Normal heart sounds. Abdomen: Bowel sounds present normoactive x-4 quadrants. Abdomen is soft, nondistended, and nontender. No guarding or rebound. No organomegaly noted. Musculoskeletal: Spontaneously moving all extremities. Skin: warm, dry, intact. Neuro: Alert and oriented x4. Sensation light touch intact. Psych: Patient's affect is appropriate for situation. - General Limitations: no limitations General appearance: alert, in no apparent distress Course Course Narrative: Mild leukocytosis with WBC 15 without a left shift. Mild anemia at baseline. Cr is slightly improved from baseline. Patient's is not bedside. At home, patient's temp was 101.2F at home with rigors, sweats. She notes he has been septic 4-5 times. This is how it typically starts and, within 4-6 hours, he begins having altered mentation. He was on Bactrim up until Monday when he completed this course. Caution as patient has multiple antibiotic allergies. Chart check shows patient has recent right foot ulcer wound culture growing K. oxytoca. Previous wound cultures were positive for MRSA and E. cloacae. Treated per ID with doxycycline and zosyn. I discussed the above with the admitting hospitalist. He is agreeable to admission for continued evaluation and management with the inclusion of IV antibiotics as above. EKG dated 03/09/2018 at 01:10 interpreted as sinus tachycardia with a rate of 109. [place] 157, curettes 32, QTC 437. Borderline right axis. Nonspecific ST-T changes. N to o previous EKG for comparison. Vital Signs Temperature 98.3 F 03/09/18 00:46 Pulse Rate 108 03/09/18 00:46 Respiratory Rate 20 03/09/18 00:46 Blood Pressure 164/80 03/09/18 00:46 O2 Sat by Pulse Oximetry 99 03/09/18 00:46 Temperature 98.5 F 03/09/18 07:09 Pulse Rate 84 03/09/18 07:09 Respiratory Rate 16 10/26/18 07:09 Blood Pressure 134/82 03/09/18 07:09 O2 Sat by Pulse Oximetry 97 03/09/18 07:09 Oxygen Delivery Oxygen Delivery Room Air Medical Decision Making - Lab Data Result diagrams: 03/09/18 01:03 03/09/18 01:03 Lab Results 03/09/18 03/09/18 03/09/18 Range/Units 01:03 01:03 01:03 WBC 15.5 H (4.3-11.1) K/mcL RBC 3.51 L (4.19-5.50) M/mcL Hgb 9.4 L (12.9-16.9) g/dL Hct 31.2 L (37.5-50.1) % MCV 88.9 (83.0-100.0) fL MCH 26.8 L (28.0-33.3) pg MCHC 30.1 L (31.6-35.5) g/dL RDW 15.2 H (11.5-14.5) % Plt Count 267 (140-400) K/mcL MPV 11.4 (9.4-12.4) fL Immature Gran % 0.5 (0-4) % Seg Neutrophils % 73.3 % Lymphocytes % 14.1 % Monocytes % 7.7 % Eosinophils % 3.9 % Basophils % 0.5 % Neutrophils # 11.4 H (1.6-8.9) K/mcL Lymphocytes # 2.2 (0.6-4.6) K/mcL Monocytes # 1.2 (0.0-1.3) K/mcL Eosinophils # 0.6 (0.0-0.6) K/mcL Basophils # 0.1 (0.0-0.2) K/mcL PT 18.3 H (9.4-12.1) Seconds INR 1.6 APTT 34.6 (26.0-36.0) Seconds Sodium 141 (136-145) mEq/L Potassium 5.0 (3.5-5.1) mEq/L Chloride 107 (98-107) mEq/L Carbon Dioxide 28 (23-29) mEq/L BUN 20 (6-20) mg/dL Creatinine 1.39 H (0.70-1.30) mg/dL Est GFR ( Amer) > 60 (> 60) Est GFR (Non-Af Amer) 54 L (> 60) BUN/Creatinine Ratio 14 (6-26) Glucose 215 H (70-105) mg/dL Calculated Osmolality 301 H (280-300) Lactic Acid (0.5-2.2) mmol/L Calcium 9.2 (8.6-10.3) mg/dL Magnesium 1.4 L (1.6-2.6) mg/dL Total Bilirubin 0.2 L (0.3-1.0) mg/dL Direct Bilirubin 0.1 (0.0-0.2) mg/dL Indirect Bilirubin 0.1 (0.0-1.2) mg/dL AST 12 L (13-39) Units/L ALT 16 (7-52) Units/L Alkaline Phosphatase 100 (34-104) Units/L Troponin I < 0.03 (< 0.04) ng/mL Serum Total Protein 6.6 (6.4-8.9) g/dL Albumin 3.7 (3.5-5.7) g/dL Globulin 2.9 (2.4-3.5) g/dL Albumin/Globulin Ratio 1.3 (1.1-2.2) 03/09/18 Range/Units 01:03 WBC (4.3-11.1) K/mcL RBC (4.19-5.50) M/mcL Hgb (12.9-16.9) g/dL Hct (37.5-50.1) % MCV (83.0-100.0) fL MCH (28.0-33.3) pg MCHC (31.6-35.5) g/dL RDW (11.5-14.5) % Plt Count (140-400) K/mcL MPV (9.4-12.4) fL Immature Gran % (0-4) % Seg Neutrophils % % Lymphocytes % % Monocytes % % Eosinophils % % Basophils % % Neutrophils # (1.6-8.9) K/mcL Lymphocytes # (0.6-4.6) K/mcL Monocytes # (0.0-1.3) K/mcL Eosinophils # (0.0-0.6) K/mcL Basophils # (0.0-0.2) K/mcL PT (9.4-12.1) Seconds INR APTT (26.0-36.0) Seconds Sodium (136-145) mEq/L Potassium (3.5-5.1) mEq/L Chloride (98-107) mEq/L Carbon Dioxide (23-29) mEq/L BUN (6-20) mg/dL Creatinine (0.70-1.30) mg/dL Est GFR ( Amer) (> 60) Est GFR (Non-Af Amer) (> 60) BUN/Creatinine Ratio (6-26) Glucose (70-105) mg/dL Calculated Osmolality (280-300) Lactic Acid 1.3 (0.5-2.2) mmol/L Calcium (8.6-10.3) mg/dL Magnesium (1.6-2.6) mg/dL Total Bilirubin (0.3-1.0) mg/dL Direct Bilirubin (0.0-0.2) mg/dL Indirect Bilirubin (0.0-1.2) mg/dL AST (13-39) Units/L ALT (7-52) Units/L Alkaline Phosphatase (34-104) Units/L Troponin I (< 0.04) ng/mL Serum Total Protein (6.4-8.9) g/dL Albumin (3.5-5.7) g/dL Globulin (2.4-3.5) g/dL Albumin/Globulin Ratio (1.1-2.2)
[2018-03-09] MEDS ORDERED: Doxycycline 100 MG in 0.9 % Sodium Chloride Mini Bag 100 ML IVPB ONE (02:53)
[2018-03-09] MEDS ORDERED: Piperacillin/Tazobactam 3.375 GM in 0.9 % Sodium Chloride Mini Bag 100 ML IVPB ONE (02:53)
[2018-03-09] MEDS ORDERED: Albuterol 2.5 MG/3 ML NEBULIZER IH PRN (03:50)
--- NOTE | 2018-03-09 03:50 | Emergency Department Note ---
Disposition Clinical Impression: Fever Qualifiers: Fever type: due to other condition Qualified Code(s): R50.81 - Fever presenting with conditions classified elsewhere Diabetic foot ulcer Qualifiers: Diabetic foot ulcer location: midfoot Diabetes mellitus type: type 2 Laterality: right Non-pressure ulcer stage: unspecified non-pressure ulcer stage Qualified Code(s): E11.621 - Type 2 diabetes mellitus with foot ulcer; L97.419 - Non-pressure chronic ulcer of right heel and midfoot with unspecified severity Disposition: Admitted As Inpatient Condition: Fair Referrals: Jaime Paula MD [Primary Care Provider] - Forms: ED Satisfaction Letter General Adult HPI - General Chief complaint: ED Fever Stated complaint: R foot pain Time Seen by Provider: 03/09/18 00:51 Source: EMS Limitations: no limitations Nursing Notes Reviewed: Yes Vital Signs Reviewed: Yes - History of Present Illness Pain Scale: 0 - Related Data Home Medications Medication Instructions Recorded Confirmed Acetaminophen [Tylenol] 500 mg PO HS 12/02/16 02/19/18 Carvedilol Phosphate [Coreg Cr] 80 mg PO DAILY 12/02/16 02/19/18 Fluticasone/Salmeterol [Advair 1 each IH BID PRN 12/02/16 02/19/18 250-50 Diskus] Furosemide [Lasix] 40 mg PO BID 12/02/16 02/19/18 Insulin Glargine,Hum.rec.anlog 46 units SQ BID 12/02/16 02/19/18 [Lantus Solostar] Metformin HCl [Glucophage] 1,000 mg PO BID 12/02/16 02/19/18 Pentoxifylline 400 mg PO BID 12/02/16 02/19/18 Potassium Chloride 20 meq PO DAILY 12/02/16 02/19/18 Pramipexole [Mirapex] 0.25 mg PO BID 12/02/16 02/19/18 Albuterol Sulfate [Ventolin Hfa] 2 puff IH Q4H PRN 01/05/18 02/19/18 Atorvastatin [Lipitor] 40 mg PO HS 01/05/18 02/19/18 Insulin LISPRO [HumaLOG] 10 units SQ TIDWM 01/05/18 02/19/18 Lansoprazole [Prevacid] 30 mg PO DAILY 01/05/18 02/19/18 Lisinopril [Zestril] 20 mg PO DAILY 01/05/18 02/19/18 Previous Rx's Medication Instructions Recorded Loratadine [Claritin] 10 mg PO DAILY tablet 11/17/17 Amoxicillin/Clavulanate [Augmentin] 875 mg PO BIDWM 14 Days #28 tablet 02/21/18 Doxycycline 100 mg PO BID 14 Days #28 capsule 02/21/18 Enoxaparin [Lovenox] 80 mg SQ Q12HR #120 syr 02/22/18 Warfarin Sodium [Coumadin] 6 mg PO DAILY #30 tablet 02/22/18 Allergies Allergy/AdvReac Type Severity Reaction Status Date / Time vancomycin Allergy Intermediate Itching Verified 01/05/18 19:34 peanut Allergy Anaphylaxis Verified 03/25/17 00:00 cephalexin [From Keflex] AdvReac Rash Verified 03/25/17 00:00 levofloxacin AdvReac Rash Verified 03/25/17 00:00 Sulfa (Sulfonamide AdvReac Rash Verified 03/25/17 00:00 Antibiotics) Past Medical History - Past Medical History Medical history: Reports: asthma, atrial fibrillation, CHF, DVT, diabetes, hyperlipidemia, hypertension, pulmonary embolus, renal disease, venous stasis, other Surgical history: Reports: herniorrhaphy Psychiatric history: Reports: no psych history - Social History Smoking Status: Never smoker Smokeless Tobacco Status: No Alcohol use: Reports: none Drug use: Reports: none Physical Exam - General Limitations: no limitations General appearance: alert, in no apparent distress Course Vital Signs Temperature 98.3 F 03/09/18 00:46 Pulse Rate 108 03/09/18 00:46 Respiratory Rate 20 03/09/18 00:46 Blood Pressure 164/80 03/09/18 00:46 O2 Sat by Pulse Oximetry 99 03/09/18 00:46 Temperature 100.4 F H 03/09/18 03:03 Pulse Rate 104 03/09/18 03:03 Respiratory Rate 14 03/09/18 03:03 Blood Pressure 164/80 03/09/18 00:46 O2 Sat by Pulse Oximetry 97 03/09/18 03:03 Oxygen Delivery Oxygen Delivery Room Air Medical Decision Making - Medical Records Medical records reviewed: Yes I reviewed the patient's medical records. - Lab Data Lab results reviewed: Yes I reviewed the patient's lab results. Result diagrams: 03/09/18 01:03 03/09/18 01:03 Lab Results 03/09/18 03/09/18 03/09/18 Range/Units 01:03 01:03 01:03 WBC 15.5 H (4.3-11.1) K/mcL RBC 3.51 L (4.19-5.50) M/mcL Hgb 9.4 L (12.9-16.9) g/dL Hct 31.2 L (37.5-50.1) % MCV 88.9 (83.0-100.0) fL MCH 26.8 L (28.0-33.3) pg MCHC 30.1 L (31.6-35.5) g/dL RDW 15.2 H (11.5-14.5) % Plt Count 267 (140-400) K/mcL MPV 11.4 (9.4-12.4) fL Immature Gran % 0.5 (0-4) % Seg Neutrophils % 73.3 % Lymphocytes % 14.1 % Monocytes % 7.7 % Eosinophils % 3.9 % Basophils % 0.5 % Neutrophils # 11.4 H (1.6-8.9) K/mcL Lymphocytes # 2.2 (0.6-4.6) K/mcL Monocytes # 1.2 (0.0-1.3) K/mcL Eosinophils # 0.6 (0.0-0.6) K/mcL Basophils # 0.1 (0.0-0.2) K/mcL PT 18.3 H (9.4-12.1) Seconds INR 1.6 APTT 34.6 (26.0-36.0) Seconds Sodium 141 (136-145) mEq/L Potassium 5.0 (3.5-5.1) mEq/L Chloride 107 (98-107) mEq/L Carbon Dioxide 28 (23-29) mEq/L BUN 20 (6-20) mg/dL Creatinine 1.39 H (0.70-1.30) mg/dL Est GFR ( Amer) > 60 (> 60) Est GFR (Non-Af Amer) 54 L (> 60) BUN/Creatinine Ratio 14 (6-26) Glucose 215 H (70-105) mg/dL Calculated Osmolality 301 H (280-300) Lactic Acid (0.5-2.2) mmol/L Calcium 9.2 (8.6-10.3) mg/dL Magnesium 1.4 L (1.6-2.6) mg/dL Total Bilirubin 0.2 L (0.3-1.0) mg/dL Direct Bilirubin 0.1 (0.0-0.2) mg/dL Indirect Bilirubin 0.1 (0.0-1.2) mg/dL AST 12 L (13-39) Units/L ALT 16 (7-52) Units/L Alkaline Phosphatase 100 (34-104) Units/L Troponin I < 0.03 (< 0.04) ng/mL Serum Total Protein 6.6 (6.4-8.9) g/dL Albumin 3.7 (3.5-5.7) g/dL Globulin 2.9 (2.4-3.5) g/dL Albumin/Globulin Ratio 1.3 (1.1-2.2) 03/09/18 Range/Units 01:03 WBC (4.3-11.1) K/mcL RBC (4.19-5.50) M/mcL Hgb (12.9-16.9) g/dL Hct (37.5-50.1) % MCV (83.0-100.0) fL MCH (28.0-33.3) pg MCHC (31.6-35.5) g/dL RDW (11.5-14.5) % Plt Count (140-400) K/mcL MPV (9.4-12.4) fL Immature Gran % (0-4) % Seg Neutrophils % % Lymphocytes % % Monocytes % % Eosinophils % % Basophils % % Neutrophils # (1.6-8.9) K/mcL Lymphocytes # (0.6-4.6) K/mcL Monocytes # (0.0-1.3) K/mcL Eosinophils # (0.0-0.6) K/mcL Basophils # (0.0-0.2) K/mcL PT (9.4-12.1) Seconds INR APTT (26.0-36.0) Seconds Sodium (136-145) mEq/L Potassium (3.5-5.1) mEq/L Chloride (98-107) mEq/L Carbon Dioxide (23-29) mEq/L BUN (6-20) mg/dL Creatinine (0.70-1.30) mg/dL Est GFR ( Amer) (> 60) Est GFR (Non-Af Amer) (> 60) BUN/Creatinine Ratio (6-26) Glucose (70-105) mg/dL Calculated Osmolality (280-300) Lactic Acid 1.3 (0.5-2.2) mmol/L Calcium (8.6-10.3) mg/dL Magnesium (1.6-2.6) mg/dL Total Bilirubin (0.3-1.0) mg/dL Direct Bilirubin (0.0-0.2) mg/dL Indirect Bilirubin (0.0-1.2) mg/dL AST (13-39) Units/L ALT (7-52) Units/L Alkaline Phosphatase (34-104) Units/L Troponin I (< 0.04) ng/mL Serum Total Protein (6.4-8.9) g/dL Albumin (3.5-5.7) g/dL Globulin (2.4-3.5) g/dL Albumin/Globulin Ratio (1.1-2.2) - Radiology Data Radiology results reviewed: Yes I reviewed the patient's radiology results. Foot X-Ray 03/09/18 00:54 IMPRESSION: Diffuse soft tissue edema consistent with cellulitis. Wound VAC suggesting recent incision and drainage of previously seen plantar lateral soft tissue ulceration. 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 No new osseous changes noted. D/ / Sam Chandra MD / Sam Chandra MD Interpreting Provider: Sam Chandra MD - EKG Data EKG #1 EKG attestation: Yes I reviewed and interpreted this EKG. EKG results narrative: EKG shows a sinus tachycardia with ventricular rate of 109. Low voltage in precordial leads. No acute ST segment elevation or depression. No ectopy. Attestation Statement - Attestation Attestation: I, Je Eli MD, personally evaluated this patient and discussed their management with the resident physician. I reviewed the resident's note and agree with the documented findings, medical decision making, and plan of care. 52-year-old male with history of a diabetic foot ulcer on the right foot which is chronic. He is being followed by podiatry and wound care for this and was actually just seen yesterday and had a new wound VAC and dressing applied. He states they felt that it looked good and did not look infected. This evening patient suddenly developed a fever with chills and shakes. He complains of generalized fatigue and not feeling well. Patient and reports that this is how he use Aleve presents when he gets septic from his chronic foot ulcer. He has had multiple similar episodes and had to be admitted to the hospital several times to get IV antibiotics. He was just in the hospital a few weeks ago and has been on Bactrim as an outpatient which she finished 5 days ago. He does complain of some increased pain in the foot. Also after the dressing was removed feels that the foot is more red and more swollen than usual. On examination patient is a well-developed morbidly obese male in no acute distress. He is alert and oriented 3. There is no cyanosis or diaphoresis. Rest sounds are clear and equal bilaterally. Heart regular with a mild tachycardia. Abdomen soft and nontender with normal bowel sounds. The right foot is moderately swollen and hot to touch with erythema over the plantar aspect. The wound VAC dressing was not removed. Labs reviewed. X-ray of the foot showed no osteomyelitis. The hospitalist, Dr. Vallecillo, was consulted and accepted admission of the patient.
[2018-03-09] MEDS ORDERED: Ringers Solution, Lactated 1,000 ML IVC SCH (04:30)
[2018-03-09] MEDS: Budesonide/Formoterol 80/4.5 MDI IH SCH ×3 (04:31→20:09)
--- NOTE | 2018-03-09 04:32 | Internal Med History&Physical ---
Date of Encounter: 03/09/18 Time of Encounter: 04:30 Internal Medicine - H&P: HPI Chief complaint: right foot pain Admitted From: Home Plans for Post Hospital Care: Home History of present illness: Elmer Jones is a 52 year old obese man with a past medical history of asthma, A. fib, CHF, DVT, diabetes mellitus, hyperlipidemia, hypertension, PE, CAD, diabetic foot wound. He has been admitted multiple times due to skin and soft tissue infections affecting his right foot, most recently discharged about 2 weeks ago at which time he was given amoxicillin/clavulanate and doxycycline due to Klebsiella that was identified on culture however due to an intolerance was subsequently changed to TMP/SMX. Prior to this he had MRSA identified in his wound. He presents today with acute onset pain in his right foot with chills and swelling in the area and on arrival here he was noted febrile at 100.4 F. He was also seen to have leukocytosis which prompted concern for sepsis. Foot x-ray was done showing diffuse soft tissue edema consistent with cellulitis. He was given doxycycline and PIP/Tazo and is admitted for further care. Of note, he was seen recently in the wound care clinic where there were no signs of cellulitis identified and he was feeling well. History obtained by the is that he completed his course of antibiotics only 5 days ago and then this happens. She does state that it frequently occurs where he becomes infected again a week or 2 after completing a course of antibiotics. PMHx: As above. Surgical history remarkable for hernia repair. SHx: Nonsmoker and denies illicit drug use. FHx: Heart disease in father. Review of systems: All systems reviewed and negative except as listed above in the HPI. Vitals: Reviewed General: Obese white male lying comfortably in bed in no acute distress. Nontoxic appearing and conversant. Skin: Warm and supple. HEENT: Moist mucous membranes. No conjunctivae pallor. Neck: No lymphadenopathy. No JVD. No carotid bruits. No palpable thyroid. Chest: Reduced breath sounds bilaterally due to adiposity. Heart: Normal S1 & S2; rhythmic. Abdomen: soft and non-tender to palpation. Extremities: Both legs are edematous with diminished sensation however the right leg is noticeably warmer and more erythematous. Charcot rocker bottom foot with KAIDEN apparatus applied to the bas of the right foot and covered with gauze. Neurological: Awake, alert and oriented to person, place and time. No focal deficits. Psych: Affect appropriate. Past Med Surg Social Fam HX - Past Medical History Medical history: asthma, atrial fibrillation, CHF, DVT, diabetes, hyp erlipidemia, hypertension, pulmonary embolus, renal disease, venous stasis, other Additional medical history: Charcot's foot, Venous insufficiency, morbid obesity Psychiatric history: no psych history - Past Surgical History Surgical History: herniorrhaphy Additional surgical history: I&D right foot - Social History Smoking Status: Never smoker Smokeless Tobacco Status: No Alcohol use: none Drug use: none - Family History Father Family Member Ethnicity: Non- Living Status: Still Living Hx Family Cardiac Disorders: Yes (Heart valve replacement, venous stasis) Hx Family Respiratory Disorders: No Hx Family Cancer: No Hx Family GI Disorders: No Hx Family Endocrine Disorder: No Hx Family Neuromuscular Disorders: No Hx Family Neurologic Disorders: No Hx Family HEENT Disorders: No Hx Family Autoimmune Disorders: No Mother Adopted: No Family Member Ethnicity: Non- Living Status: Hx Family Cardiac Disorders: Yes Hx Family Respiratory Disorders: No Hx Family Cancer: No Hx Family GI Disorders: No Hx Family Endocrine Disorder: Yes (DM) Hx Family Neuromuscular Disorders: No Hx Family Neurologic Disorders: Yes (Alzheimer's disease) Hx Family HEENT Disorders: No Hx Family Autoimmune Disorders: No Brother Family Member Ethnicity: Non- Living Status: Still Living Hx Family Cardiac Disorders: Yes (DVTs) Hx Family Respiratory Disorders: No Hx Family Cancer: No Hx Family GI Disorders: No Hx Family Endocrine Disorder: No Hx Family Neuromuscular Disorders: No Hx Family Neurologic Disorders: No Hx Family HEENT Disorders: No Hx Family Autoimmune Disorders: No Internal Medicine - H&P: Meds Acetaminophen [Tylenol] 500 mg PO HS 12/02/16 [History] Carvedilol Phosphate [Coreg Cr] 80 mg PO DAILY 12/02/16 [History] Fluticasone/Salmeterol [Advair 250-50 Diskus] 1 each IH BID PRN 12/02/16 [History] Furosemide [Lasix] 40 mg PO BID 12/02/16 [History] Insulin Glargine,Hum.rec.anlog [Lantus Solostar] 46 units SQ BID 12/02/16 [History] Metformin HCl [Glucophage] 1,000 mg PO BID 12/02/16 [History] Pentoxifylline 400 mg PO BID 12/02/16 [History] Potassium Chloride 20 meq PO DAILY 12/02/16 [History] Pramipexole [Mirapex] 0.25 mg PO BID 12/02/16 [History] Loratadine [Claritin] 10 mg PO DAILY tablet 11/17/17 [Rx] Albuterol Sulfate [Ventolin Hfa] 2 puff IH Q4H PRN 01/05/18 [History] Atorvastatin [Lipitor] 40 mg PO HS 01/05/18 [History] Insulin LISPRO [HumaLOG] 10 units SQ TIDWM 01/05/18 [History] Lansoprazole [Prevacid] 30 mg PO DAILY 01/05/18 [History] Lisinopril [Zestril] 20 mg PO DAILY 01/05/18 [History] Amoxicillin/Clavulanate [Augmentin] 875 mg PO BIDWM 14 Days #28 tablet 02/21/18 [Rx] Doxycycline 100 mg PO BID 14 Days #28 capsule 02/21/18 [Rx] Enoxaparin [Lovenox] 80 mg SQ Q12HR #120 syr 02/22/18 [Rx] Warfarin Sodium [Coumadin] 6 mg PO DAILY #30 tablet 02/22/18 [Rx] Allergy/AdvReac Type Severity Reaction Status Date / Time vancomycin Allergy Intermediate Itching Verified 01/05/18 19:34 peanut Allergy Anaphylaxis Verified 03/25/17 00:00 cephalexin [From Keflex] AdvReac Rash Verified 03/25/17 00:00 levofloxacin AdvReac Rash Verified 03/25/17 00:00 Sulfa (Sulfonamide AdvReac Rash Verified 03/25/17 00:00 Antibiotics) All Systems PM: A 10-system review of systems was performed and is negative for pertinent findings except as documented above in the HPI. - Constitutional Vitals: Temp Pulse Resp BP Pulse Ox 100.4 F H 104 14 164/80 97 03/09/18 03:03 03/09/18 03:03 03/09/18 03:03 03/09/18 00:46 03/09/18 03:03 Exam: see above. Internal Med - H&P Results - Labs CBC & Chem 7: 03/09/18 01:03 03/09/18 01:03 Labs: Short CBC 03/09/18 Range/Units 01:03 WBC 15.5 H (4.3-11.1) K/mcL Hgb 9.4 L (12.9-16.9) g/dL Hct 31.2 L (37.5-50.1) % Plt Count 267 (140-400) K/mcL Neutrophils # 11.4 H (1.6-8.9) K/mcL BMP 03/09/18 01:03 Sodium 141 Potassium 5.0 Chloride 107 Carbon Dioxide 28 BUN 20 Creatinine 1.39 H Glucose 215 H Calcium 9.2 Cardiac Enzymes 03/09/18 Range/Units 01:03 Troponin I < 0.03 (< 0.04) ng/mL Liver Function 03/09/18 Range/Units 01:03 Total Bilirubin 0.2 L (0.3-1.0) mg/dL Direct Bilirubin 0.1 (0.0-0.2) mg/dL AST 12 L (13-39) Units/L ALT 16 (7-52) Units/L Alkaline Phosphatase 100 (34-104) Units/L Albumin 3.7 (3.5-5.7) g/dL - Impressions ITS Impressions Foot X-Ray 03/09/18 00:54 IMPRESSION: Diffuse soft tissue edema consistent with cellulitis. Wound VAC suggesting recent incision and drainage of previously seen plantar lateral soft tissue ulceration. 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 No new osseous changes noted. D/ / Sam Chandra MD / Sam Chandra MD Interpreting Provider: Sam Chandra MD - Assessment and plan (1) Cellulitis of right foot Current Visit: Yes Status: Acute Assessment and plan: Appears to be a recurring issue. He maintains risk factors of obesity and poor glycemic control in addition to vasculopathy. Frequently a polymicrobial infection; prior MRSA identified and now more recently Klebsiella. He also has a lot of allergies which makes targeted choices difficult. Will keep empiric with linezolid and piptazo for now and request podiatry consultation as well as ID f/u. (2) Sepsis Current Visit: Yes Status: Acute Assessment and plan: Evidenced by fever and leukocytosis; secondary to skin/soft tissue infection of right foot in the setting of diabetic foot ulcer. Will place on IVF and empiric abx. Blood cultures obtained. Qualifiers: Sepsis type: sepsis due to unspecified organism Qualified Code(s): A41.9 - Sepsis, unspecified organism (3) Diabetes mellitus type 2 in obese Current Visit: Yes Status: Acute Assessment and plan: Will place on insulin sliding scale for now. (4) A-fib Current Visit: Yes Status: Chronic Assessment and plan: Rate controlled. INR sub-therapeutic. Will continue warfarin per pharmacy dosing. Qualifiers: Atrial fibrillation type: chronic Qualified Code(s): I48.2 - Chronic atrial fibrillation (5) HLD (hyperlipidemia) Current Visit: Yes Status: Chronic Assessment and plan: On statin therapy. Qualifiers: Hyperlipidemia type: unspecified Qualified Code(s): E78.5 - Hyperlipidemia, unspecified (6) HTN (hypertension) Current Visit: Yes Status: Chronic Assessment and plan: Continue daily lisinopril. Qualifiers: Hypertension type: essential hypertension Qualified Code(s): I10 - Essential (primary) hypertension (7) Morbid obesity with BMI of 50.0-59.9, adult Current Visit: No Status: Chronic (8) CKD (chronic kidney disease) Current Visit: Yes Status: Acute Assessment and plan: Stable. Medications to be renally adjusted. 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 Qualifiers: Obesity type: due to excess calories Obesity classification: adult class 3 (BMI >= 40) Body mass index: BMI 50.0-59.9 Qualified Code(s): E66.01 - Morbid (severe) obesity due to excess calories; Z68.43 - Body mass index (BMI) 50-59.9, adult - Time Spent With Patient Total time spent is greater than 50% in coordination of care (as documented) at patient's floor/unit and/or counseling patient: Greater than 35 minutes
[2018-03-09] MEDS ORDERED: Dextrose Gel 15 GM/37.5 ML TUBE PO PRN ×2 (04:34)
[2018-03-09] MEDS: Insulin LISPRO 300 UNITS/3 ML VIAL SQ SCH ×4 (07:37→20:31)
[2018-03-09] MEDS ORDERED: Piperacillin/Tazobactam 3.375 GM in 0.9 % Sodium Chloride Mini Bag 100 ML IVPB SCH (08:00)
[2018-03-09] MEDS: Lisinopril 20 MG TABLET PO SCH (08:01)
[2018-03-09] MEDS: Loratadine 10 MG TABLET PO SCH (08:01)
--- NOTE | 2018-03-09 09:11 | Infectious Disease Consult ---
Date of Encounter: 03/09/18 Time of Encounter: 09:05 Assessment and Plan (1) Sepsis Status: Acute Assessment and plan: The patient had three SIRS Criteria on admission. Likely secondary to RLE cellulitis. Tmax 100.4 since admission. Continue to trend labs. Blood cultures drawn 03/09/18 are pending x 2 sets. Qualifiers: Sepsis type: sepsis due to unspecified organism Qualified Code(s): A41.9 - Sepsis, unspecified organism (2) Cellulitis Status: Acute Assessment and plan: Location: RLE. Causative organism: Unclear. Non-purulent. Likely secondary to chronic diabetic foot ulcer. Podiatry consulted. Await recommendations. Check ESR and CRP. Recommend MRI of the RLE to evaluate for OM or abscess. Continue Zosyn 3.375 grams IV Q8H. Discontinue Zyvox. Start Daptomycin 6mg/kg IV daily. Check baseline CK level. Stop lipitor while on Daptomycin. Duration of treatment depends on the clinical picture. Monitor renal function and dose-adjust antibiotics. Qualifiers: Site of cellulitis: extremity Site of cellulitis of extremity: lower extremity Laterality: unspecified laterality Qualified Code(s): L03.119 - Cellulitis of unspecified part of limb (3) Diabetic foot ulcer Status: Acute Assessment and plan: Location: Right foot. Chronic, non-healing. X-ray showed soft tissue swelling, but no bone abnormality. Podiatry consulted and following. Await recommendations. Consider MRI of the lower extremity to evaluate further. Get wound cultures. Wound care per the Podiatry team. Antibiotics as above. Qualifiers: Diabetic foot ulcer location: midfoot Diabetes mellitus type: type 2 Laterality: right Non-pressure ulcer stage: unspecified non-pressure ulcer stage Qualified Code(s): E11.621 - Type 2 diabetes mellitus with foot ulcer; L97.419 - Non-pressure chronic ulcer of right heel and midfoot with unspecified severity (4) A-fib Status: Chronic Qualifiers: Atrial fibrillation type: chronic Qualified Code(s): I48.2 - Chronic atrial fibrillation (5) Charcot's joint of foot Status: Chronic Qualifiers: Laterality: right Qualified Code(s): M14.671 - Charcot's joint, right ankle and foot (6) Type 2 diabetes mellitus Status: Chronic Assessment and plan: Recommend aggressive glucose monitoring and control to promote wound healing and prevent re-infection. Management per the primary team. Qualifiers: Diabetes mellitus fci insulin use: without fci use Diabetes mellitus complication status: with skin complications Diabetes mellitus complication detail: with foot ulcer Qualified Code(s): E11.621 - Type 2 di abetes mellitus with foot ulcer; L97.509 - Non-pressure chronic ulcer of other part of unspecified foot with unspecified severity (7) Morbid obesity with BMI of 45.0-49.9, adult Status: Acute (8) CKD (chronic kidney disease) Status: Acute Assessment and plan: Monitor renal function closely and dose-adjust antibiotics. Avoid nephrotoxins as able. Qualifiers: Chronic kidney disease stage: stage 3 (moderate) Qualified Code(s): N18.3 - Chronic kidney disease, stage 3 (moderate) (9) Allergy to multiple antibiotics Status: Acute Assessment and plan: Reports allergies to Keflex, Sulfa, Levaquin, and Vanc. Can tolerate IV form of Levaquin, but PO causes severe nausea and vomiting. Vancomycin caused a skin rash. Took PO Bactrim recently without a problem. Recently took doxycycline and augmentin and had a rash, but it did not improve after stopping medications and the patient thinks it may have actually been the Lovenox he was on. Infectious Disease HPI - Data of Consult Patient: known to practice within the last 3 years Consult date: 03/09/18 Requesting Physician: Grabiel Jiang Primary Care Provider: Jaime Paula MD - Consult Narrative Reason for consult: Fever History of present illness: Mr. Jones is a 52 year old male with a past medical history of A. fib, CHF, DVT, diabetes, hypertension, pulmonary embolism, chronic kidney disease, venous stasis, Charcot arthropathy, and chronic nonhealing diabetic foot ulcers with multiple infections. The patient was admitted to the hospital 03/09/18 for fever and diabetic foot ulcer. We are consulted 03/09/18 for further recommendations for fever. Briefly, the patient is a 52-year-old male, well-known to the ID services with an consult on his case multiple times in the past. Most recently, the patient was admitted to the hospital earlier this month for cellulitis of the right foot. He underwent x-ray and MRI of the right foot that was negative for osteomyelitis. Wound culture was positive for Klebsiella oxytoca. He received IV antibiotics while hospitalized and was discharged on oral doxycycline and Augmentin which covered Klebsiella as well as the previous causative organisms that included Enterobacter, group B strep, Escherichia coli, and MRSA. A few days after discharge she caught her office with complaints of a rash. We discontinued the doxycycline and Augmentin and placed him on oral Bactrim even though this is listed as an allergy as the patient reported he had taken in the past without a problem. The patient is continue to follow-up with wound care and was seen yesterday and was not noted to have any problems. He did well and completed the course of antibiotics on Monday. He reported onset of fever last night with a MAXIMUM TEMPERATURE of 102 with associated chills and rigors. Upon arrival to the ER, the patient was afebrile. He was tachycardic and had leukocytosis. He did not end up spiking a fever of 100.4 while in the ER. Additional labs revealed an elevated serum creatinine consistent with his chronic kidney disease. Lactic acid was normal. X-ray of the right foot showed diffuse soft tissue swelling consistent with cellulitis. Blood cultures were obtained 2 sets. He received doxycycline and Zosyn in the emergency department and he was admitted to the hospital for further evaluation. Since admission, the patient has remained afebrile and hemodynamically stable. Currently, he is on IV Zyvox and IV Zosyn. We have been asked to evaluate and make further recommendations. During my exam today, the patient endorses a history as stated above. He reported fevers with chills and rigors prior to going to bed last night. He denies any headache or neck pain. Denies congestion, earache, or sore throat. Denies any chest pain, shortness of breath, or cough. Denies any nausea, vomiting, diarrhea, or constipation. Denies abdominal pain or urinary complaints. He states his appetite is good and his blood sugars have been well- controlled. He reports his upper extremities and the wound clinic yesterday and he was told that the wound looked good. He does have a KAIDEN dressing to the right foot that seems to be functioning appropriately. He reports some mild pain in the right foot that is new. He also reports that the right lower extremity appears more red and swollen than normal. He denies any oral thrush or other skin lesions. The patient lives at home with his family. He does not work outside the home. He denies any tobacco, alcohol, or illicit drug use. He denies any chronic infectious diseases. CC: Grabiel Jiang Past Med Surg Social Fam HX - Past Medical History Attestation: Yes The following information was validated with the patient. Source: patient, old records reviewed, nursing notes reviewed Medical history: asthma, atrial fibrillation, CHF, DVT, diabetes, hyperl ipidemia, hypertension, pulmonary embolus, renal disease, venous stasis, other Additional medical history: Charcot's foot, Venous insufficiency, morbid obesity Psychiatric history: no psych history - Past Surgical History Surgical History: herniorrhaphy Additional surgical history: I&D right foot - Social History Smoking Status: Never smoker Smokeless Tobacco Status: No Alcohol use: none Drug use: none - Family History Brother Age: 58 Family Member Ethnicity: Non- Living Status: Still Living Hx Family Cardiac Disorders: Yes Hx Family Respiratory Disorders: Yes Hx Family Cancer: No Hx Family GI Disorders: No Hx Family Endocrine Disorder: No Hx Family Neuromuscular Disorders: No Hx Family Neurologic Disorders: No Hx Family HEENT Disorders: No Hx Family Autoimmune Disorders: No Father Age: 91 Family Member Ethnicity: Non- Living Status: Still Living Hx Family Cardiac Disorders: Yes Hx Family Respiratory Disorders: No Hx Family Cancer: No Hx Family GI Disorders: No Hx Family Endocrine Disorder: No Hx Family Neuromuscular Disorders: No Hx Family Neurologic Disorders: No Hx Family HEENT Disorders: No Hx Family Autoimmune Disorders: No Mother Adopted: No Family Member Ethnicity: Non- Living Status: Age at : 89 Cause of : unsure Hx Family Cardiac Disorders: Yes Hx Family Respiratory Disorders: No Hx Family Cancer: No Hx Family GI Disorders: No Hx Family Endocrine Disorder: Yes (DM) Hx Family Neuromuscular Disorders: No Hx Family Neurologic Disorders: Yes (Alzheimer's disease) Hx Family HEENT Disorders: No Hx Family Autoimmune Disorders: No Infectious Disease-CN:Meds RX: Acetaminophen [Tylenol] 500 mg PO HS 12/02/16 [History] RX: Carvedilol Phosphate [Coreg Cr] 80 mg PO DAILY 12/02/16 [History] RX: Fluticasone/Salmeterol [Advair 250-50 Diskus] 1 each IH BID PRN 12/02/16 [H istory] RX: Furosemide [Lasix] 40 mg PO BID 12/02/16 [History] RX: Insulin Glargine,Hum.rec.anlog [Lantus Solostar] 46 units SQ BID 12/02/16 [History] RX: Metformin HCl [Glucophage] 1,000 mg PO BID 12/02/16 [History] RX: Pentoxifylline 400 mg PO BID 12/02/16 [History] RX: Pramipexole [Mirapex] 0.25 mg PO BID 12/02/16 [History] RX: Loratadine [Claritin] 10 mg PO DAILY tablet 11/17/17 [Rx] RX: Albuterol Sulfate [Ventolin Hfa] 2 puff IH Q4H PRN 01/05/18 [History] RX: Atorvastatin [Lipitor] 40 mg PO HS 01/05/18 [History] RX: Insulin LISPRO [HumaLOG] 10 units SQ TIDWM 01/05/18 [History] RX: Lansoprazole [Prevacid] 30 mg PO DAILY 01/05/18 [History] RX: Lisinopril [Zestril] 20 mg PO DAILY 01/05/18 [History] Warfarin [Coumadin] 10 mg PO DAILY 03/09/18 [History] Allergy/AdvReac Type Severity Reaction Status Date / Time vancomycin Allergy Intermediate Itching Verified 01/05/18 19:34 peanut Allergy Anaphylaxis Verified 03/25/17 00:00 cephalexin [From Keflex] AdvReac Rash Verified 03/25/17 00:00 levofloxacin AdvReac Rash Verified 03/25/17 00:00 Sulfa (Sulfonamide AdvReac Rash Verified 03/25/17 00:00 Antibiotics) All systems: reviewed and no additional remarkable complaints except as stated Exam - Constitutional Vitals: Temp Pulse Resp BP Pulse Ox 98.5 F 84 16 134/82 97 03/09/18 07:09 03/09/18 07:09 03/09/18 07:09 03/09/18 07:09 03/09/18 07:09 General appearance: cooperative, morbidly obese, no acute distress - Head Head exam: Present: atraumatic, normal inspection, normocephalic - Eye Eye exam: Present: EOMI, normal appearance, PERRL Pupils: Present: normal accommodation - ENT ENT exam: Present: mucous membranes moist - Neck Neck exam: Present: normal inspection - Respiratory Respiratory exam: Present: CTAB. Absent: rales, respiratory distress, rhonchi, wheezes - Cardiovascular Cardiovascular exam: Present: irregular rhythm. Absent: tachycardia - GI/Abdominal GI/Abdominal exam: Present: distended (obese), normal bowel sounds, soft. Absent: tenderness - Extremities Exam Extremities exam: Present: pedal edema (2+ RLE). Absent: joint swelling, normal inspection (Erythema and edema noted to the RLE. No warmth or tenderness noted on palpation. Right foot dressing C/D/I. ), tenderness - Neurological Exam Neurological exam: Present: alert, oriented X3, no focal deficits - Psychiatric Psychiatric exam: Present: normal affect, normal mood - Skin Skin exam: Present: dry, erythema (RLE), intact, normal color, warm Infectious Disease CN: Results - Labs CBC & Chem 7: 03/09/18 01:03 03/09/18 01:03 Cultures: Cultures 03/09/18 01:40 Blood Culture - Preliminary Peripheral Venipuncture Culture is incubating and being continuously monitored for growth. Final report to follow. 03/09/18 01:03 Blood Culture - Preliminary Peripheral Venipuncture Culture is incubating and being continuously monitored for growth. Final report to follow. Consult Discharge Plan - Plan Additional Instructions: Follow in wound care clinic with Dr. Leone. Please make appointment prior to D/C Referrals: Henrry Leone DPM [Partnered Physician] - Jaime Paula MD [Primary Care Provider] - - Attending Attestation I examined this patient and my medical decision-making was reviewed with the Resident Physician. I agree with the documented findings, disposition and treatment plan as described except to the extent set forth below. This is an addendum to original report dictated by Carolyn Izquierdo CNP. Please refer to Carolyn's note for full details. Patient is a 62-year-old gentleman well-known to our service was admitted to the hospital earlier this month for cellulitis of the right foot. He underwent x- ray and MRI of the right foot that was negative for osteomyelitis. Wound culture was positive for Klebsiella oxytoca. He received IV antibiotics while hospitalized and was discharged on oral doxycycline and Augmentin which covered Klebsiella as well as the previous causative organisms that included Enterobacter, group B strep, Escherichia coli, and MRSA. A few days after discharge she caught her office with complaints of a rash. We discontinued the doxycycline and Augmentin and placed him on oral Bactrim even though this is listed as an allergy as the patient reported he had taken in the past without a problem. The patient is continue to follow-up with wound care and was seen yesterday and was not noted to have any problems. He did well and completed the course of antibiotics on Monday. He reported onset of fever last night with a MAXIMUM TEMPERATURE of 102 with associated chills and rigors. Upon arrival to the ER, the patient was afebrile. He was tachycardic and had leukocytosis. He did not end up spiking a fever of 100.4 while in the ER. Additional labs revealed an elevated serum creatinine consistent with his chronic kidney disease. Lactic acid was normal. X-ray of the right foot showed diffuse soft tissue swelling consistent with cellulitis. Blood cultures were obtained 2 sets. He received doxycycline and Zosyn in the emergency department and he was admitted to the hospital for further evaluation. Since admission, the patient has remained afebrile and hemodynamically stable. Currently, he is on IV Zyvox and IV Zosyn. We have been asked to evaluate and make further recommendations. At this point we will get lower extremity imaging MRI versus CT scan and we will speak with podiatry to see what the recommendation is Check baseline labs including ESR CRP Broaden the antibiotic coverage to Zosyn and daptomycin Check baseline CK level Await podiatry recommendations Monitor labs and for drug toxicity
--- NOTE | 2018-03-09 09:50 | Podiatry Consult Note ---
Date of Encounter: 03/09/18 Time of Encounter: 09:44 Assessment and Plan (1) Diabetic foot ulcer Current visit: Yes Status: Acute Right foot because dressing removed Cultures obtained of right plantar ulcer Wound measuring 1 x 1 x 2.2 cm with tunneling at 3 o'clock measuring 3.5 deep. Rounding tissue macerated, with midfoot pink in color KAIDEN dressing placed, covered with Kerlix and Medipore. Continue IV antibiotics per ID recommendations. Leave KAIDEN dressing 7 days Qualifiers: Diabetic foot ulcer location: midfoot Diabetes mellitus type: type 2 Laterality: right Non-pressure ulcer stage: unspecified non-pressure ulcer stage Qualified Code(s): E11.621 - Type 2 diabetes mellitus with foot ulcer; L97.419 - Non-pressure chronic ulcer of right heel and midfoot with unspecified severity (2) Cellulitis of right foot Current visit: Yes Status: Acute Right calf red in color warm to touch. Continue antibiotics as ordered per ID recommendation. History of Present Illness HPI: Mr. Jones is a 52 year old male who is known to the podiatry clinic. PMH of asthma, A. fib, CHF, DVT, DM, HLD, HTN, PE, CAD, Charcot arthropathy, diabetic foot ulcer. Denies alcohol use, smoking, illicit drug use. Patient was seen in wound clinic yesterday 03/08/18. Patient has a right plantar full thickness wound measuring 2.1 x 1 x 2.2 cm tunneling noted to 3 o'clock depth 3.5 cm. Patient had wound debridement with placement of collagen with KAIDEN-dressing 03/08/18. Mr. Jones again is a 52-year-old male who presented last evening to the ER with complaints of fever, chills, and shivering. He reports he completed a 5 day regimen of Bactrim 2 days ago. Reports he was seen in the wound clinic yesterday and at that time felt fine. States around 11:30 PM his noticed that his right lower extremity and right foot were worsening in redness and warm to touch. States he was shivering and cold, report acquired temperature at home and it was 101. Patient states he has neuropathy bilaterally, but began to feel pain rating 5/10 at that time. States he has history of sepsis and for this reason came to the ER. At this time Mr. Jones is in bed. Alert and oriented 3. Denies any pain. KAIDEN dressing in place to right foot and draining without difficulty. Brown drainage noted to KAIDEN. Past Med Surg Social Fam HX - Past Medical History Medical history: asthma, atrial fibrillation, CHF, DVT, diabetes, hyperlipidemia, hypertension, pulmonary embolus, renal disease, venous stasis, other Additional medical history: Charcot's foot, Venous insufficiency, morbid obesity Psychiatric history: no psych history - Past Surgical History Surgical History: herniorrhaphy Additional surgical history: I&D right foot - Social History Smoking Status: Never smoker Smokeless Tobacco Status: No Alcohol use: none Drug use: none - Family History Brother Age: 58 Family Member Ethnicity: Non- Living Status: Still Living Hx Family Cardiac Disorders: Yes Hx Family Respiratory Disorders: Yes Hx Family Cancer: No Hx Family GI Disorders: No Hx Family Endocrine Disorder: No Hx Family Neuromuscular Disorders: No Hx Family Neurologic Disorders: No Hx Family HEENT Disorders: No Hx Family Autoimmune Disorders: No Father Age: 91 Family Member Ethnicity: Non- Living Status: Still Living Hx Family Cardiac Disorders: Yes Hx Family Respiratory Disorders: No Hx Family Cancer: No Hx Family GI Disorders: No Hx Family Endocrine Disorder: No Hx Family Neuromuscular Disorders: No Hx Family Neurologic Disorders: No Hx Family HEENT Disorders: No Hx Family Autoimmune Disorders: No Mother Adopted: No Family Member Ethnicity: Non- Living Status: Age at : 89 Cause of : unsure Hx Family Cardiac Disorders: Yes Hx Family Respiratory Disorders: No Hx Family Cancer: No Hx Family GI Disorders: No Hx Family Endocrine Disorder: Yes (DM) Hx Family Neuromuscular Disorders: No Hx Family Neurologic Disorders: Yes (Alzheimer's disease) Hx Family HEENT Disorders: No Hx Family Autoimmune Disorders: No Medications and Allergies RX: Acetaminophen [Tylenol] 500 mg PO HS 12/02/16 [History] RX: Carvedilol Phosphate [Coreg Cr] 80 mg PO DAILY 12/02/16 [History] RX: Fluticasone/Salmeterol [Advair 250-50 Diskus] 1 each IH BID PRN 12/02/16 [History] RX: Furosemide [Lasix] 40 mg PO BID 12/02/16 [History] RX: Insulin Glargine,Hum.rec.anlog [Lantus Solostar] 46 units SQ BID 12/02/16 [History] RX: Metformin HCl [Glucophage] 1,000 mg PO BID 12/02/16 [History] RX: Pentoxifylline 400 mg PO BID 12/02/16 [History] RX: Pramipexole [Mirapex] 0.25 mg PO BID 12/02/16 [History] RX: Loratadine [Claritin] 10 mg PO DAILY tablet 11/17/17 [Rx] RX: Albuterol Sulfate [Ventolin Hfa] 2 puff IH Q4H PRN 01/05/18 [History] RX: Atorvastatin [Lipitor] 40 mg PO HS 01/05/18 [History] RX: Insulin LISPRO [HumaLOG] 10 units SQ TIDWM 01/05/18 [History] RX: Lansoprazole [Prevacid] 30 mg PO DAILY 01/05/18 [History] RX: Lisinopril [Zestril] 20 mg PO DAILY 01/05/18 [History] Warfarin [Coumadin] 10 mg PO DAILY 03/09/18 [History] Allergy/AdvReac Type Severity Reaction Status Date / Time vancomycin Allergy Intermediate Itching Verified 01/05/18 19:34 peanut Allergy Anaphylaxis Verified 03/25/17 00:00 cephalexin [From Keflex] AdvReac Rash Verified 03/25/17 00:00 levofloxacin AdvReac Rash Verified 03/25/17 00:00 Sulfa (Sulfonamide AdvReac Rash Verified 03/25/17 00:00 Antibiotics) All Systems Reviewed: The remainder of the systems were reviewed and are negative - Constitutional Constitutional: fever(s) - Cardiovascular Cardiovascular: leg edema, pedal edema, no chest pain - Respiratory Respiratory: no dyspnea - Musculoskeletal Musculoskeletal: numbness, tingling, other (right foot ulcer) Physical Exam - Constitutional Vitals: Temp Pulse Resp BP Pulse Ox 98.5 F 84 16 134/82 97 03/09/18 07:09 03/09/18 07:09 03/09/18 07:09 03/09/18 07:09 03/09/18 07:09 General appearance: morbidly obese Exam: Constitiutional: Alert and oriented x 3. Vascular: 1/4 DP/PT bilaterally, CFT <3 sec to all digits, warm to warm from tibia to toes bilaterally, 3+ pitting edema bilaterally Neurologic: Diminished light touch and pinprick test, normal plantar response, Normal position sense dorsiflexion/plantar flexion Dermatologic: Right lower extremity with kaiden dressing noted to pedal area. Erythema noted to right pedal midfoot, right dorsal foot, and right calf. Lower extremity with pigmentary changes. Musculoskeletal: 3/5 muscle strength and normal tone bilaterally. Results - Labs Result Diagrams: 03/09/18 01:03 03/09/18 01:03 Labs: Abnormal lab results WBC 15.5 K/mcL (4.3-11.1) H 03/09/18 01:03 RBC 3.51 M/mcL (4.19-5.50) L 03/09/18 01:03 Hgb 9.4 g/dL (12.9-16.9) L 03/09/18 01:03 Hct 31.2 % (37.5-50.1) L 03/09/18 01:03 MCH 26.8 pg (28.0-33.3) L 03/09/18 01:03 MCHC 30.1 g/dL (31.6-35.5) L 03/09/18 01:03 RDW 15.2 % (11.5-14.5) H 03/09/18 01:03 Neutrophils # 11.4 K/mcL (1.6-8.9) H 03/09/18 01:03 PT 18.3 Seconds (9.4-12.1) H 03/09/18 01:03 Creatinine 1.39 mg/dL (0.70-1.30) H 03/09/18 01:03 Est GFR (Non-Af Amer) 54 (> 60) L 03/09/18 01:03 Glucose 215 mg/dL (70-105) H 03/09/18 01:03 Calculated Osmolality 301 (280-300) H 03/09/18 01:03 Magnesium 1.4 mg/dL (1.6-2.6) L 03/09/18 01:03 Total Bilirubin 0.2 mg/dL (0.3-1.0) L 03/09/18 01:03 AST 12 Units/L (13-39) L 03/09/18 01:03 H & H 10/26/18 10/26/18 10/26/18 Range/Units 01:03 01:03 01:03 WBC 15.5 H (4.3-11.1) K/mcL RBC 3.51 L (4.19-5.50) M/mcL Hgb 9.4 L (12.9-16.9) g/dL Hct 31.2 L (37.5-50.1) % MCV 88.9 (83.0-100.0) fL MCH 26.8 L (28.0-33.3) pg MCHC 30.1 L (31.6-35.5) g/dL RDW 15.2 H (11.5-14.5) % Plt Count 267 (140-400) K/mcL MPV 11.4 (9.4-12.4) fL Immature Gran % 0.5 (0-4) % Seg Neutrophils % 73.3 % Lymphocytes % 14.1 % Monocytes % 7.7 % Eosinophils % 3.9 % Basophils % 0.5 % Neutrophils # 11.4 H (1.6-8.9) K/mcL Lymphocytes # 2.2 (0.6-4.6) K/mcL Monocytes # 1.2 (0.0-1.3) K/mcL Eosinophils # 0.6 (0.0-0.6) K/mcL Basophils # 0.1 (0.0-0.2) K/mcL PT 18.3 H (9.4-12.1) Seconds INR 1.6 APTT 34.6 (26.0-36.0) Seconds Sodium 141 (136-145) mEq/L Potassium 5.0 (3.5-5.1) mEq/L Chloride 107 (98-107) mEq/L Carbon Dioxide 28 (23-29) mEq/L BUN 20 (6-20) mg/dL Creatinine 1.39 H (0.70-1.30) mg/dL Est GFR ( Amer) > 60 (> 60) Est GFR (Non-Af Amer) 54 L (> 60) BUN/Creatinine Ratio 14 (6-26) Glucose 215 H (70-105) mg/dL POC Glucose (70-99) mg/dL Calculated Osmolality 301 H (280-300) Lactic Acid (0.5-2.2) mmol/L Calcium 9.2 (8.6-10.3) mg/dL Magnesium 1.4 L (1.6-2.6) mg/dL Total Bilirubin 0.2 L (0.3-1.0) mg/dL Direct Bilirubin 0.1 (0.0-0.2) mg/dL Indirect Bilirubin 0.1 (0.0-1.2) mg/dL AST 12 L (13-39) Units/L ALT 16 (7-52) Units/L Alkaline Phosphatase 100 (34-104) Units/L Troponin I < 0.03 (< 0.04) ng/mL Serum Total Protein 6.6 (6.4-8.9) g/dL Albumin 3.7 (3.5-5.7) g/dL Globulin 2.9 (2.4-3.5) g/dL Albumin/Globulin Ratio 1.3 (1.1-2.2) 03/09/18 03/09/18 Range/Units 01:03 07:09 WBC (4.3-11.1) K/mcL RBC (4.19-5.50) M/mcL Hgb (12.9-16.9) g/dL Hct (37.5-50.1) % MCV (83.0-100.0) fL MCH (28.0-33.3) pg MCHC (31.6-35.5) g/dL RDW (11.5-14.5) % Plt Count (140-400) K/mcL MPV (9.4-12.4) fL Immature Gran % (0-4) % Seg Neutrophils % % Lymphocytes % % Monocytes % % Eosinophils % % Basophils % % Neutrophils # (1.6-8.9) K/mcL Lymphocytes # (0.6-4.6) K/mcL Monocytes # (0.0-1.3) K/mcL Eosinophils # (0.0-0.6) K/mcL Basophils # (0.0-0.2) K/mcL PT (9.4-12.1) Seconds INR APTT (26.0-36.0) Seconds Sodium (136-145) mEq/L Potassium (3.5-5.1) mEq/L Chloride (98-107) mEq/L Carbon Dioxide (23-29) mEq/L BUN (6-20) mg/dL Creatinine (0.70-1.30) mg/dL Est GFR ( Amer) (> 60) Est GFR (Non-Af Amer) (> 60) BUN/Creatinine Ratio (6-26) Glucose (70-105) mg/dL POC Glucose 92 (70-99) mg/dL Calculated Osmolality (280-300) Lactic Acid 1.3 (0.5-2.2) mmol/L Calcium (8.6-10.3) mg/dL Magnesium (1.6-2.6) mg/dL Total Bilirubin (0.3-1.0) mg/dL Direct Bilirubin (0.0-0.2) mg/dL Indirect Bilirubin (0.0-1.2) mg/dL AST (13-39) Units/L ALT (7-52) Units/L Alkaline Phosphatase (34-104) Units/L Troponin I (< 0.04) ng/mL Serum Total Protein (6.4-8.9) g/dL Albumin (3.5-5.7) g/dL Globulin (2.4-3.5) g/dL Albumin/Globulin Ratio (1.1-2.2) All other labs normal. - Diagnostic results Ankle/Foot x-ray: report reviewed Consult Discharge Plan - Plan Additional Instructions: Follow in wound care clinic with Dr. Leone. Please make appointment prior to D/C Referrals: Jaime Paula MD [Primary Care Provider] - Henrry Leone DPM [Partnered Physician] -
[2018-03-09] MEDS: Piperacillin/Tazobactam 3.375 GM in 0.9 % Sodium Chloride Mini Bag 100 ML IVPB SCH ×2 (11:49→20:26)
[2018-03-09] MEDS: DAPTOmycin 1,000 MG in 0.9 % Sodium Chloride 100 ML IVPB SCH (13:12)
[2018-03-09 13:24] LABS: INR 1.8; Prothrombin Time 20.8 Seconds (9.4-12.1)
[2018-03-09 13:43] LABS: C-Reactive Protein 27 mg/L (Less than 10); Creatine Kinase 35 Units/L (30-223)
[2018-03-09] MEDS: *HR* Enoxaparin 100 MG/ML SYRINGE SQ SCH (17:35)
[2018-03-09] MEDS ORDERED: Warfarin perPT PO PRN (18:00)
[2018-03-09] MEDS ORDERED: *HR* Warfarin 5 MG TABLET PO ONE (18:00)
[2018-03-10] MEDS: Piperacillin/Tazobactam 3.375 GM in 0.9 % Sodium Chloride Mini Bag 100 ML IVPB SCH ×3 (03:15→20:19)
[2018-03-10] MEDS: *HR* Enoxaparin 100 MG/ML SYRINGE SQ SCH ×2 (04:56→17:10)
[2018-03-10 06:16] LABS: INR 2.1; Prothrombin Time 23.2 Seconds (9.4-12.1)
[2018-03-10] MEDS: Budesonide/Formoterol 80/4.5 MDI IH SCH ×2 (07:55→20:34)
[2018-03-10] MEDS: Insulin LISPRO 300 UNITS/3 ML VIAL SQ SCH ×4 (08:00→20:29)
[2018-03-10] MEDS: Lisinopril 20 MG TABLET PO SCH (08:02)
[2018-03-10] MEDS: Loratadine 10 MG TABLET PO SCH (08:02)
[2018-03-10] MEDS: DAPTOmycin 1,000 MG in 0.9 % Sodium Chloride 100 ML IVPB SCH (11:59)
--- NOTE | 2018-03-10 12:55 | Podiatry Progress Note ---
Date of Encounter: 03/10/18 Time of Encounter: 12:53 - Assessment and Plan (1) Diabetic foot ulcer Current Visit: Yes Status: Acute 1. Follow up wound cultures. Appreciate ID recommendations for antibiotics based on these culture results. 2. Continue KAIDEN dressing until follow up with Dr. Leone in wound care clinic. Qualifiers: Diabetic foot ulcer location: midfoot Diabetes mellitus type: type 2 Laterality: right Non-pressure ulcer stage: unspecified non-pressure ulcer stage Qualified Code(s): E11.621 - Type 2 diabetes mellitus with foot ulcer; L97.419 - Non-pressure chronic ulcer of right heel and midfoot with unspecified severity Subjective Principal diagnosis: right foot ulcer Interval history: KAIDEN dressing intact but patient does not believe it is functioning properly. He denies n/v/f/c or pain at this time. Cultures pending. Objective - Vital Signs Vital Signs: Vital Signs Temp Pulse Resp BP Pulse Ox 03/10/18 11:04 98 F 76 16 132/62 97 03/10/18 07:55 18 98 03/10/18 07:30 98 F 83 16 149/80 97 03/10/18 02:47 98.4 F 82 16 137/73 94 03/09/18 20:09 16 98 03/09/18 19:45 98.2 F 79 15 117/63 98 03/09/18 14:32 98.2 F 81 16 138/74 97 Intake and Output 03/09/18 03/10/18 03/10/18 23:59 07:59 15:59 Intake Total 684 / 684 200 / 200 340 / 340 Output Total 1300 / 1300 975 / 975 0 / 0 Balance -616 / -616 -775 / -775 340 / 340 Intake: IV Fluids 204 / 204 200 / 200 100 / 100 Cubicin 1,000 MG In 0.9 % 100 / 100 Sodium Chloride 100 ML @ 200 mls/hr IVPB Q24H [facility] Rx#: [id number] Zosyn 3.375 GM In 0.9 % Sodium 100 / 100 200 / 200 Chloride (Mini-Bag +) 100 ML @ 25 mls/hr IVPB Q8H [facility] Rx#: [id number] Oral 480 / 480 0 / 0 240 / 240 Output: Urine 1300 / 1300 975 / 975 0 / 0 Wound Drainage 0 / 0 0 / 0 Right Foot 0 / 0 0 / 0 Other: Meal Dinner Breakfast Percent of Meal Consumed 100% 70% Weight 180.8 kg Blood Glucose* 189 147 177 Patient Weight 03/10/18 23:59 Weight 180.8 kg - Exam Exam: Constitiutional: Alert and oriented x 3. Vascular: 1/4 DP/PT bilaterally, CFT <3 sec to all digits, warm to warm from tibia to toes bilaterally, 3+ pitting edema bilaterally Neurologic: Diminished light touch and pinprick test, normal plantar response, Normal position sense dorsiflexion/plantar flexion Dermatologic: Right lower extremity with KAIDEN dressing noted to plantar and lateral foot. Erythema noted to right pedal midfoot, right dorsal foot, and right calf, improving. Lower extremity with pigmentary changes. Musculoskeletal: 3/5 muscle strength and normal tone bilaterally. - Lab Result Diagrams: 03/09/18 01:03 03/09/18 01:03 Labs: Abnormal lab results WBC 15.5 K/mcL (4.3-11.1) H 03/09/18 01:03 RBC 3.51 M/mcL (4.19-5.50) L 03/09/18 01:03 Hgb 9.4 g/dL (12.9-16.9) L 03/09/18 01:03 Hct 31.2 % (37.5-50.1) L 03/09/18 01:03 MCH 26.8 pg (28.0-33.3) L 03/09/18 01:03 MCHC 30.1 g/dL (31.6-35.5) L 03/09/18 01:03 RDW 15.2 % (11.5-14.5) H 03/09/18 01:03 Neutrophils # 11.4 K/mcL (1.6-8.9) H 03/09/18 01:03 ESR 50 mm/hr (0-10) H 03/09/18 11:55 PT 23.2 Seconds (9.4-12.1) H 03/10/18 05:28 Creatinine 1.39 mg/dL (0.70-1.30) H 03/09/18 01:03 Est GFR (Non-Af Amer) 54 (> 60) L 03/09/18 01:03 Glucose 215 mg/dL (70-105) H 03/09/18 01:03 POC Glucose 177 mg/dL (70-99) H 03/10/18 11:08 Calculated Osmolality 301 (280-300) H 03/09/18 01:03 Magnesium 1.4 mg/dL (1.6-2.6) L 03/09/18 01:03 Total Bilirubin 0.2 mg/dL (0.3-1.0) L 03/09/18 01:03 AST 12 Units/L (13-39) L 03/09/18 01:03 C-Reactive Protein 27 mg/L (Less than 10) H 03/09/18 11:55 Microbiology, Last 48 Hours 03/09/18 11:30 Wound Culture - Preliminary Right Foot Gram Negative Jorge 03/09/18 01:40 Blood Culture - Preliminary Peripheral Venipuncture Culture is incubating and being continuously monitored for growth. Final report to follow. 03/09/18 01:03 Blood Culture - Preliminary Peripheral Venipuncture Culture is incubating and being continuously monitored for growth. Final report to follow. Consult Discharge Plan - Plan Additional Instructions: Follow in wound care clinic with Dr. Leone. Please make appointment prior to D/C Referrals: Henrry Leone DPM [Partnered Physician] - Jaime Paula MD [Primary Care Provider] -
[2018-03-10] MEDS ORDERED: *HR* Warfarin 5 MG TABLET PO ONE (18:00)
--- NOTE | 2018-03-10 22:48 | Internal Med Progress Note ---
Hospitalist Progress Note - Encounter Date of Encounter: 03/10/18 Time of Encounter: 15:00 - Subjective Interval History: SUBJECTIVE: The patient feels good. He does not have any significant pain in his right foot. There is a dressing applied to it. Denies chest pain and difficulty breathing. Denies abdominal pain, nausea and vomiting. He has normal urination. OBJECTIVE: Skin: Free of rash and discoloration. See description of his right foot u lcer/cellulitis by podiatry and infectious diseases. ENMT: Oral/pharyngeal mucosa is normal in appearance. Eyes: Sclera is white. There is no discharge from eyes. Respiratory: Normal breath sounds; no crackles or wheezes. CV: Heart is regular; no gallop or murmur. GI: Abdomen is soft and not tender. There is no palpable mass or visceromegaly. Neuro: There is no focal deficits. ADDITIONAL DATA: Pro time INR is 2.1. ASSESSMENT AND PLAN: Cellulitis of right foot/diabetic foot ulcer. Sepsisresolved. We will continue IV Zosyn and dressings as recommended by infectious diseases/podiatry. Paroxysmal atrial fibrillation. Currently normal sinus rhythm. We will continue Coreg and Coumadin. Hypertensive renal disease with CKD stage III. Under control. We will continue Coreg and Zestril. Peripheral arterial disease/hyperlipidemia. We will continue Trental and Lipitor. He is on warfarin. - Exam Vitals: Temp Pulse Resp BP Pulse Ox 98.1 F 77 19 145/80 95 03/10/18 19:50 03/10/18 19:50 03/10/18 20:34 03/10/18 19:50 03/10/18 20:34 Exam: xx - Assessment and Plan (1) Cellulitis of right foot Current Visit: Yes Status: Acute (2) Diabetic foot ulcer Current Visit: Yes Status: Acute (3) Sepsis Current Visit: Yes Status: Resolved (4) PAF (paroxysmal atrial fibrillation) Current Visit: Yes Status: Acute (5) Hypertensive renal disease with renal failure Current Visit: Yes Status: Acute (6) PAD (peripheral artery disease) Current Visit: Yes Status: Chronic (7) HLD (hyperlipidemia) Current Visit: Yes Status: Chronic (8) Morbid obesity with BMI of 50.0-59.9, adult Current Visit: No Status: Chronic - Time Spent with Patient Total time spent is greater than 50% in coordination of care (as documented) at patient's floor/unit and/or counseling patient: 25 - 35 minutes Plan of Care Discussed with: patient Internal Medicine: Result - Labs CBC & Chem 7: 03/09/18 01:03 03/09/18 01:03 - ABG Interpretation ABG results: PT/INR, D-dimer PT 23.2 Seconds (9.4-12.1) H 03/10/18 05:28 Consult Discharge Plan - Plan Additional Instructions: Follow in wound care clinic with Dr. Leone. Please make appointment prior to D/C Referrals: Henrry Leone DPM [Partnered Physician] - Jaime Paula MD [Primary Care Provider] - (2) Diabetic foot ulcer Qualifiers: Diabetic foot ulcer location: midfoot Diabetes mellitus type: type 2 Laterality: right Non-pressure ulcer stage: unspecified non-pressure ulcer stage Qualified Code(s): E11.621 - Type 2 diabetes mellitus with foot ulcer; L97.419 - Non-pressure chronic ulcer of right heel and midfoot with unspecified severity (3) Sepsis Qualifiers: Sepsis type: sepsis due to unspecified organism Qualified Code(s): A41.9 - Sepsis, unspecified organism (7) HLD (hyperlipidemia) Qualifiers: Hyperlipidemia type: unspecified Qualified Code(s): E78.5 - Hyperlipidemia, unspecified
[2018-03-11] MEDS: Piperacillin/Tazobactam 3.375 GM in 0.9 % Sodium Chloride Mini Bag 100 ML IVPB SCH ×3 (03:27→20:21)
[2018-03-11 05:44] LABS: INR 1.9; Prothrombin Time 21.5 Seconds (9.4-12.1)
[2018-03-11] MEDS: Budesonide/Formoterol 80/4.5 MDI IH SCH ×2 (08:02→20:46)
[2018-03-11] MEDS: Lisinopril 20 MG TABLET PO SCH (08:35)
[2018-03-11] MEDS: Loratadine 10 MG TABLET PO SCH (08:35)
[2018-03-11] MEDS: Insulin LISPRO 300 UNITS/3 ML VIAL SQ SCH ×4 (08:37→20:45)
[2018-03-11] MEDS: DAPTOmycin 1,000 MG in 0.9 % Sodium Chloride 100 ML IVPB SCH (12:09)
[2018-03-11] MEDS ORDERED: *HR* Warfarin 10 MG TABLET PO ONE (18:00)
--- NOTE | 2018-03-11 20:14 | Internal Med Progress Note ---
Hospitalist Progress Note - Encounter Date of Encounter: 03/11/18 Time of Encounter: 19:00 - Subjective Interval History: SUBJECTIVE: The patient's condition has not changed. His right foot pain is very mild. He has a dressing applied to that area. Denies chest pain and difficulty breathing. Denies coughing and wheezing. Denies abdominal pain, nausea and vomiting. He makes good amounts of urine. OBJECTIVE: The patient is afebrile. Skin: Free of rash and discoloration. See description of his right foot ulcer/cellulitis by podiatry and infectious diseases. ENMT: Oral/pharyngeal mucosa is normal in appearance. Eyes: Sclera is white. There is no discharge from eyes. Respiratory: Normal breath sounds; no crackles or wheezes. CV: Heart is regular; no gallop or murmur. GI: Abdomen is soft and not tender. There is no palpable mass or visceromegaly. Neuro: There is no focal deficits. ADDITIONAL DATA: Pro time INR is 2.1. Pro time INR is 1.9. ASSESSMENT AND PLAN: Cellulitis of right foot/diabetic foot ulcer. Sepsisresolved. The control of his diabetes mellitus is pretty good. We will continue IV Zyvox/Zosyn and dressings as recommended by infectious diseases/podiatry. He is on diabetic diet and when necessary Humalog. Paroxysmal atrial fibrillation. Currently normal sinus rhythm. We will continue Coreg and Coumadin. Hypertensive renal disease with CKD stage III. Under control. We will continue Coreg and Zestril. Peripheral arterial disease/hyperlipidemia. We will continue Trental and Lipitor. He is on warfarin. Disposition: I will discuss with infectious diseases about possible discharge of this patient in a day or two. - Exam Vitals: Temp Pulse Resp BP Pulse Ox 97.5 F L 80 16 133/64 93 03/11/18 19:59 03/11/18 19:59 03/11/18 19:59 03/11/18 19:59 03/11/18 19:59 Exam: xx - Assessment and Plan (1) Cellulitis of right foot Current Visit: Yes Status: Acute (2) Diabetic foot ulcer Current Visit: Yes Status: Acute (3) Sepsis Current Visit: Yes Status: Resolved (4) PAF (paroxysmal atrial fibrillation) Current Visit: Yes Status: Acute (5) Hypertensive renal disease with renal failure Current Visit: Yes Status: Acute (6) PAD (peripheral artery disease) Current Visit: Yes Status: Chronic (7) HLD (hyperlipidemia) Current Visit: Yes Status: Chronic (8) Morbid obesity with BMI of 50.0-59.9, adult Current Visit: No Status: Chronic - Time Spent with Patient Total time spent is greater than 50% in coordination of care (as documented) at patient's floor/unit and/or counseling patient: 25 - 35 minutes Plan of Care Discussed with: patient Internal Medicine: Result - Labs CBC & Chem 7: 03/09/18 01:03 03/09/18 01:03 - ABG Interpretation ABG results: PT/INR, D-dimer PT 21.5 Seconds (9.4-12.1) H 03/11/18 05:20 Consult Discharge Plan - Plan Additional Instructions: Follow in wound care clinic with Dr. Leone. Please make appointment prior to D/C Referrals: Henrry Leone DPM [Partnered Physician] - Jaime Paula MD [Primary Care Provider] - (2) Diabetic foot ulcer Qualifiers: Diabetic foot ulcer location: midfoot Diabetes mellitus type: type 2 Laterality: right Non-pressure ulcer stage: unspecified non-pressure ulcer stage Qualified Code(s): E11.621 - Type 2 diabetes mellitus with foot ulcer; L97.419 - Non-pressure chronic ulcer of right heel and midfoot with unspecified severity (3) Sepsis Qualifiers: Sepsis type: sepsis due to unspecified organism Qualified Code(s): A41.9 - Sepsis, unspecified organism (7) HLD (hyperlipidemia) Qualifiers: Hyperlipidemia type: unspecified Qualified Code(s): E78.5 - Hyperlipidemia, unspecified
[2018-03-12] MEDS: Piperacillin/Tazobactam 3.375 GM in 0.9 % Sodium Chloride Mini Bag 100 ML IVPB SCH ×3 (04:34→20:06)
[2018-03-12 06:48] LABS: INR 1.8; Prothrombin Time 20.6 Seconds (9.4-12.1)
[2018-03-12] MEDS: Budesonide/Formoterol 80/4.5 MDI IH SCH ×2 (08:17→20:12)
[2018-03-12] MEDS: Loratadine 10 MG TABLET PO SCH (08:27)
[2018-03-12] MEDS: Lisinopril 20 MG TABLET PO SCH (08:27)
[2018-03-12] MEDS: Insulin LISPRO 300 UNITS/3 ML VIAL SQ SCH ×4 (08:28→21:31)
[2018-03-12 09:20] LABS: Basophils # 0.1 K/mcL (0.0-0.2); Eosinophils # 0.4 K/mcL (0.0-0.6); Hematocrit 28.6 % (37.5-50.1); Hemoglobin 8.8 g/dL (12.9-16.9); Immature Granulocytes % 0.3 % (0-4); Lymphocytes # 1.7 K/mcL (0.6-4.6); Lymphocytes % 23.4 %; Mean Corpuscular HGB Conc 30.8 g/dL (31.6-35.5); Mean Corpuscular Hemoglobin 27.3 pg (28.0-33.3); Mean Corpuscular Volume 88.8 fL (83.0-100.0); Monocytes # 0.6 K/mcL (0.0-1.3); Monocytes % 8.7 %; Neutrophils # 4.5 K/mcL (1.6-8.9); Platelet Count 244 K/mcL (140-400); Red Blood Count 3.22 M/mcL (4.19-5.50); Red Cell Distribution Width 15.2 % (11.5-14.5); Segmented Neutrophils % 60.6 %
[2018-03-12 09:31] LABS: BUN/Creatinine Ratio 11 (6-26); Blood Urea Nitrogen 13 mg/dL (6-20); Carbon Dioxide 25 mEq/L (23-29); Chloride 107 mEq/L (98-107); Glucose 142 mg/dL (70-105); Osmolality,Calculated 289 (280-300); Potassium 4.4 mEq/L (3.5-5.1); Sodium 138 mEq/L (136-145); eGFR For Non-African Americans > 60 (> 60)
[2018-03-12 10:21] LABS: C-Reactive Protein 17 mg/L (Less than 10)
--- NOTE | 2018-03-12 11:28 | Infectious Disease Progress No ---
Date of Encounter: 03/12/18 Time of Encounter: 11:26 - Assessment and Plan (1) Sepsis Current Visit: Yes Status: Resolved The patient had three SIRS Criteria on admission. Likely secondary to RLE cellulitis. Improved. Afebrile. WBC normal. Tachycardia resolved. Blood cultures drawn 03/09/18 are NGTD x 2 sets. Qualifiers: Sepsis type: sepsis due to unspecified organism Qualified Code(s): A41.9 - Sepsis, unspecified organism (2) Cellulitis Current Visit: No Status: Acute Location: RLE. Causative organism: K. pneumoniae. Non-purulent. Likely secondary to chronic diabetic foot ulcer. Podiatry consulted. Await recommendations. Check ESR and CRP.--> 50/27. Repeat ESR 80. Recommend MRI of the RLE to evaluate for OM or abscess. Discontinue Daptomycin. Continue Zosyn 3.375 grams IV Q8H. Duration of treatment depends on the clinical picture. Monitor renal function and dose-adjust antibiotics. Qualifiers: Site of cellulitis: extremity Site of cellulitis of extremity: lower extremity Laterality: unspecified laterality Qualified Code(s): L03.119 - Cellulitis of unspecified part of limb (3) Diabetic foot ulcer Current Visit: Yes Status: Acute Location: Right foot. Chronic, non-healing. X-ray showed soft tissue swelling, but no bone abnormality. Podiatry consulted and following. Await recommendations. Consider MRI of the lower extremity to evaluate further. Wound cultures positive for K. pneumoniae. Wound care per the Podiatry team. Antibiotics as above. Qualifiers: Diabetic foot ulcer location: midfoot Diabetes mellitus type: type 2 Laterality: right Non-pressure ulcer stage: unspecified non-pressure ulcer stage Qualified Code(s): E11.621 - Type 2 diabetes mellitus with foot ulcer; L97.419 - Non-pressure chronic ulcer of right heel and midfoot with unspecified severity (4) A-fib Current Visit: Yes Status: Chronic Qualifiers: Atrial fibrillation type: chronic Qualified Code(s): I48.2 - Chronic atrial fibrillation (5) Charcot's joint of foot Current Visit: No Status: Chronic Qualifiers: Laterality: right Qualified Code(s): M14.671 - Charcot's joint, right ankle and foot (6) Type 2 diabetes mellitus Current Visit: No Status: Chronic Recommend aggressive glucose monitoring and control to promote wound healing and prevent re-infection. Management per the primary team. Qualifiers: Diabetes mellitus penitentiary insulin use: without penitentiary use Diabetes mellitus complication status: with skin complications Diabetes mellitus complication detail: with foot ulcer Qualified Code(s): E11.621 - Type 2 diabetes mellitus with foot ulcer; L97.509 - Non-pressure chronic ulcer of other part of unspecified foot with unspecified severity (7) Morbid obesity with BMI of 45.0-49.9, adult Current Visit: No Status: Acute (8) CKD (chronic kidney disease) Current Visit: Yes Status: Acute Monitor renal function closely and dose-adjust antibiotics. Avoid nephrotoxins as able. Qualifiers: Chronic kidney disease stage: stage 3 (moderate) Qualified Code(s): N18.3 - Chronic kidney disease, stage 3 (moderate) (9) Allergy to multiple antibiotics Current Visit: No Status: Acute Reports allergies to Keflex, Sulfa, Levaquin, and Vanc. Can tolerate IV form of Levaquin, but PO causes severe nausea and vomiting. Vancomycin caused a skin rash. Took PO Bactrim recently without a problem. Recently took doxycycline and augmentin and had a rash, but it did not improve after stopping medications and the patient thinks it may have actually been the Lovenox he was on. - Subjective Interval history: Patient seen and examined. No acute events noted overnight. Patient states overall he feels well. Denies any fevers or chills or rigors. Denies chest pain, shortness of breath, or cough. Denies any nausea or vomiting, but does report 2 loose stools per day. Denies any abdominal pain or urinary complaints. Denies any pain in his joints or extremities. States he thinks the redness and swelling to his right lower extremity is improved. He denies any oral thrush or new skin lesions. Infect Dis PN-Objective Data - Labs CBC & Chem 7: 03/12/18 08:46 03/12/18 08:46 Labs: Laboratory Results - last 24 hr 03/10/18 03/11/18 03/12/18 19:55 08:37 06:08 WBC RBC Hgb Hct MCV MCH MCHC RDW Plt Count MPV Immature Gran % Seg Neutrophils % Lymphocytes % Monocytes % Eosinophils % Basophils % Neutrophils # Lymphocytes # Monocytes # Eosinophils # Basophils # ESR PT 20.6 H INR 1.8 Sodium Potassium Chloride Carbon Dioxide BUN Creatinine Est GFR ( Amer) Est GFR (Non-Af Amer) BUN/Creatinine Ratio Glucose POC Glucose 168 H 167 H Calculated Osmolality Calcium C-Reactive Protein 03/12/18 03/12/18 03/12/18 08:46 08:46 08:46 WBC 7.4 D RBC 3.22 L Hgb 8.8 L Hct 28.6 L MCV 88.8 MCH 27.3 L MCHC 30.8 L RDW 15.2 H Plt Count 244 MPV 11.0 Immature Gran % 0.3 Seg Neutrophils % 60.6 Lymphocytes % 23.4 Monocytes % 8.7 Eosinophils % 6.0 Basophils % 1.0 Neutrophils # 4.5 Lymphocytes # 1.7 Monocytes # 0.6 Eosinophils # 0.4 Basophils # 0.1 ESR 82 H PT INR Sodium 138 Potassium 4.4 Chloride 107 Carbon Dioxide 25 BUN 13 Creatinine 1.23 Est GFR ( Amer) > 60 Est GFR (Non-Af Amer) > 60 BUN/Creatinine Ratio 11 Glucose 142 H POC Glucose Calculated Osmolality 289 Calcium 9.0 C-Reactive Protein 17 H Cultures: Cultures 03/09/18 11:30 Anaerobic Culture - Preliminary Right Foot At this time, no anaerobic growth is present. The culture will be finalized after 5 days of incubation. 03/09/18 11:30 Wound Culture - Final Right Foot Klebsiella pneu.ssp pneumoniae 03/09/18 01:40 Blood Culture - Preliminary Peripheral Venipuncture Culture is incubating and being continuously monitored for growth. Final report to follow. 03/09/18 01:03 Blood Culture - Preliminary Peripheral Venipuncture Culture is incubating and being continuously monitored for growth. Final report to follow. Exam - Constitutional Vitals: Temp Pulse Resp BP Pulse Ox 98.0 F 73 16 142/68 96 03/12/18 10:20 03/12/18 10:20 03/12/18 10:20 03/12/18 10:20 03/12/18 10:20 General appearance: cooperative, morbidly obese, no acute distress - Head Head exam: Present: atraumatic, normal inspection, normocephalic - Eye Eye exam: Present: EOMI, normal appearance, PERRL Pupils: Present: normal accommodation - ENT ENT exam: Present: mucous membranes moist - Neck Neck exam: Present: normal inspection - Respiratory Respiratory exam: Present: CTAB. Absent: rales, respiratory distress, rhonchi, wheezes - Cardiovascular Cardiovascular exam: Present: RRR, +S1, +S2 - GI/Abdominal GI/Abdominal exam: Present: distended (Obese), normal bowel sounds, soft. Absent: tenderness - Extremities Exam Extremities exam: Present: pedal edema (1+ bilateral lower extremities). Absent: joint swelling, normal inspection (Venous stasis dermatitis noted bilateral lower extremities, left worse than right. Erythema and warmth noted to the right lower extremity previously has improved.), tenderness Additional comments: Right foot dressing C/D/I. - Neurological Exam Neurological exam: Present: alert, oriented X3, no focal deficits - Psychiatric Psychiatric exam: Present: normal affect, normal mood - Skin Skin exam: Present: dry, intact, normal color, warm Consult Discharge Plan - Plan Additional Instructions: Follow in wound care clinic with Dr. Leone. Please make appointment prior to D/C Referrals: Henrry Leone DPM [Partnered Physician] - Jaime Paula MD [Primary Care Provider] - - Attending Attestation I examined this patient and my medical decision-making was reviewed with the Resident Physician. I agree with the documented findings, disposition and treatment plan as described except to the extent set forth below.
[2018-03-12] MEDS ORDERED: Gadolinium Contrast Agent (WT Based) IV PRN (11:34)
[2018-03-12] MEDS: DAPTOmycin 1,000 MG in 0.9 % Sodium Chloride 100 ML IVPB SCH (11:38)
--- NOTE | 2018-03-12 13:53 | Podiatry Progress Note ---
Date of Encounter: 03/12/18 Time of Encounter: 09:20 - Assessment and Plan (1) Diabetic foot ulcer Current Visit: Yes Status: Acute Right foot dressing removed. Right plantar wound measuring 1 x 1 x 2.2 cm with tunneling at 3 o'clock measuring 3.5 deep. surrounding tissue macerated, with midfoot pink in color KAIDEN dressing placed. Covered with Kerlix and paper tape. Nurse called stating kaiden dressing no longer working. Instructed to pack wound with Mesalt. Cover with Kerlix and Dominic bandage. Continue IV antibiotics per ID recommendations. Culture positive for Klebsiella, blood cultures pending. Ordered a.m. labs. ESR increasing, 82. White count normal,7.2, CRP decreasing, 17 MRI ordered to rule out osteomyelitis. Qualifiers: Diabetic foot ulcer location: midfoot Diabetes mellitus type: type 2 Laterality: right Non-pressure ulcer stage: unspecified non-pressure ulcer stage Qualified Code(s): E11.621 - Type 2 diabetes mellitus with foot ulcer; L97.419 - Non-pressure chronic ulcer of right heel and midfoot with unspecified severity (2) Cellulitis of right foot Current Visit: Yes Status: Acute Right calf red in color, decreased from previous assessment, warm to touch. Continue antibiotics as ordered per ID recommendation. Subjective Principal diagnosis: right foot ulcer Interval history: Patient sitting in bed eating breakfast. Alert and oriented 3. Reports kaiden dressing no longer working. Denies any other overnight events. Objective - Vital Signs Vital Signs: Vital Signs Temp Pulse Resp BP Pulse Ox 03/12/18 10:20 98.0 F 73 16 142/68 96 03/12/18 08:17 16 96 03/12/18 07:13 98.2 F 71 16 173/80 96 03/12/18 03:19 97.6 F 78 18 162/68 94 03/11/18 20:47 17 94 03/11/18 19:59 97.5 F L 80 16 133/64 93 03/11/18 16:31 97.9 F 75 16 150/70 97 Intake and Output 03/11/18 03/12/18 03/12/18 23:59 07:59 15:59 Intake Total 580 / 580 400 / 400 500 / 500 Output Total 0 / 0 0 / 0 Balance 580 / 580 400 / 400 500 / 500 Intake: IV Fluids 100 / 100 100 / 100 200 / 200 Cubicin 1,000 MG In 0.9 % 100 / 100 Sodium Chloride 100 ML @ 200 mls/hr IVPB Q24H [facility] Rx#: [id number] Zosyn 3.375 GM In 0.9 % Sodium 100 / 100 100 / 100 100 / 100 Chloride (Mini-Bag +) 100 ML @ 25 mls/hr IVPB Q8H [facility] Rx#: [id number] Oral 480 / 480 300 / 300 300 / 300 Output: Urine 0 / 0 0 / 0 Other: Meal Dinner Lunch Percent of Meal Consumed 75% 100% # Voids 1 1 1 Weight 179.4 kg Blood Glucose* 188 151 213 Patient Weight 03/12/18 23:59 Weight 179.4 kg - Exam Exam: Constitiutional: Alert and oriented x 3. Vascular: 2/4 DP/PT bilaterally, CFT <3 sec to all digits, warm to warm from tibia to toes bilaterally, 3+/4 pitting edema noted bilaterally Neurologic: Diminished sensation to touch, normal plantar response, Normal position sense dorsiflexion/plantar flexion Dermatologic: Right foot plantar ulcer noted. Dressing with Dominic bandage noted. Musculoskeletal: 4/5 muscle strength and normal tone bilaterally. - Lab Result Diagrams: 03/12/18 08:46 03/12/18 08:46 Labs: Abnormal lab results RBC 3.22 M/mcL (4.19-5.50) L 03/12/18 08:46 Hgb 8.8 g/dL (12.9-16.9) L 03/12/18 08:46 Hct 28.6 % (37.5-50.1) L 03/12/18 08:46 MCH 27.3 pg (28.0-33.3) L 03/12/18 08:46 MCHC 30.8 g/dL (31.6-35.5) L 03/12/18 08:46 RDW 15.2 % (11.5-14.5) H 03/12/18 08:46 ESR 82 mm/hr (0-10) H 03/12/18 08:46 PT 20.6 Seconds (9.4-12.1) H 03/12/18 06:08 Glucose 142 mg/dL (70-105) H 03/12/18 08:46 POC Glucose 151 mg/dL (70-99) H 03/12/18 07:15 Magnesium 1.4 mg/dL (1.6-2.6) L 03/09/18 01:03 Total Bilirubin 0.2 mg/dL (0.3-1.0) L 03/09/18 01:03 AST 12 Units/L (13-39) L 03/09/18 01:03 C-Reactive Protein 17 mg/L (Less than 10) H 03/12/18 08:46 Microbiology, Last 48 Hours 03/09/18 11:30 Anaerobic Culture - Preliminary Right Foot At this time, no anaerobic growth is present. The culture will be finalized after 5 days of incubation. 03/09/18 11:30 Wound Culture - Final Right Foot Klebsiella pneu.ssp pneumoniae Consult Discharge Plan - Plan Additional Instructions: Follow in wound care clinic with Dr. Leone. Please make appointment prior to D/C Referrals: Henrry Leone DPM [Partnered Physician] - Jaime Paula MD [Primary Care Provider] -
[2018-03-12] MEDS ORDERED: *HR* Warfarin 3 MG TABLET PO ONE (18:00)
--- NOTE | 2018-03-13 00:51 | Internal Med Progress Note ---
Hospitalist Progress Note - Encounter Date of Encounter: 03/12/18 Time of Encounter: 16:00 - Subjective Interval History: SUBJECTIVE: He continues to significant swelling in the area of right foot. It is associated with mild pain. Denies chest pain and difficulty breathing. Denies coughing and wheezing. Denies abdominal pain, nausea and vomiting. He makes good amounts of urine. OBJECTIVE: The patient is afebrile. Skin: Free of rash and discoloration. See description of his right foot ulcer/cellulitis by podiatry and infectious diseases. ENMT: Oral/pharyngeal mucosa is normal in appearance. Eyes: Sclera is white. There is no discharge from eyes. Respiratory: Normal breath sounds; no crackles or wheezes. CV: Heart is regular; no gallop or murmur. GI: Abdomen is soft and not tender. There is no palpable mass or visceromegaly. Neuro: There is no focal deficits. ADDITIONAL DATA: Pro time INR is 1.8. Pharmacy is dosing his warfarin. ASSESSMENT AND PLAN: Cellulitis of right foot/diabetic foot ulcer. Sepsisresolved. The control of his diabetes mellitus is pretty good. We will continue IV Zyvox/Zosyn and dressings as recommended by infectious diseases/podiatry. He is on diabetic diet and when necessary Humalog. The patient is scheduled for MRI today. Paroxysmal atrial fibrillation. Currently normal sinus rhythm. We will continue Coreg and Coumadin. Hypertensive renal disease with CKD stage III. Under control. We will continue Coreg and Zestril. Peripheral arterial disease/hyperlipidemia. We will continue Trental and Lipitor. He is on warfarin. - Exam Vitals: Temp Pulse Resp BP Pulse Ox 98.3 F 78 18 163/79 98 03/12/18 19:29 03/12/18 19:29 03/12/18 20:13 03/12/18 19:29 03/12/18 20:13 Exam: xx - Assessment and Plan (1) Cellulitis of right foot Current Visit: Yes Status: Acute (2) Diabetic foot ulcer Current Visit: Yes Status: Acute (3) Sepsis Current Visit: Yes Status: Resolved (4) PAF (paroxysmal atrial fibrillation) Current Visit: Yes Status: Acute (5) Hypertensive renal disease with renal failure Current Visit: Yes Status: Acute (6) PAD (peripheral artery disease) Current Visit: Yes Status: Chronic (7) HLD (hyperlipidemia) Current Visit: Yes Status: Chronic (8) Morbid obesity with BMI of 50.0-59.9, adult Current Visit: No Status: Chronic - Time Spent with Patient Total time spent is greater than 50% in coordination of care (as documented) at patient's floor/unit and/or counseling patient: 25 - 35 minutes Plan of Care Discussed with: patient Internal Medicine: Result - Labs CBC & Chem 7: 03/12/18 08:46 03/12/18 08:46 Labs: Short CBC 03/12/18 Range/Units 08:46 WBC 7.4 D (4.3-11.1) K/mcL Hgb 8.8 L (12.9-16.9) g/dL Hct 28.6 L (37.5-50.1) % Plt Count 244 (140-400) K/mcL Neutrophils # 4.5 (1.6-8.9) K/mcL BMP 03/12/18 08:46 Sodium 138 Potassium 4.4 Chloride 107 Carbon Dioxide 25 BUN 13 Creatinine 1.23 Glucose 142 H Calcium 9.0 - ABG Interpretation ABG results: PT/INR, D-dimer PT 20.6 Seconds (9.4-12.1) H 03/12/18 06:08 - Impressions Impressions Foot MRI 03/12/18 11:34 IMPRESSION: 1. Chronic ulceration along the plantar foot at the level of the cuboid with underlying marrow signal changes of the cuboid compatible with osteomyelitis. 2. 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 3. Soft tissue edema mild postcontrast enhancement suggestive of cellulitis. No organized drainable fluid collection identified. 4. 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 5. Chronic tendinosis of the distal peroneus longus tendon. D/ / Orlando Lyles MD / Orlando Lyles MD Interpreting Provider: Orlando Lyles MD Consult Discharge Plan - Plan Additional Instructions: Follow in wound care clinic with Dr. Leone. Please make appointment prior to D/C Referrals: Henrry Leone DPM [Partnered Physician] - Jaime Paula MD [Primary Care Provider] - (2) Diabetic foot ulcer Qualifiers: Diabetic foot ulcer location: midfoot Diabetes mellitus type: type 2 Laterality: right Non-pressure ulcer stage: unspecified non-pressure ulcer stage Qualified Code(s): E11.621 - Type 2 diabetes mellitus with foot ulcer; L97.419 - Non-pressure chronic ulcer of right heel and midfoot with unspecified severity (3) Sepsis Qualifiers: Sepsis type: sepsis due to unspecified organism Qualified Code(s): A41.9 - Sepsis, unspecified organism (7) HLD (hyperlipidemia) Qualifiers: Hyperlipidemia type: unspecified Qualified Code(s): E78.5 - Hyperlipidemia, unspecified
[2018-03-13 07:06] LABS: INR 1.7; Prothrombin Time 18.8 Seconds (9.4-12.1)
[2018-03-13] MEDS: Budesonide/Formoterol 80/4.5 MDI IH SCH ×2 (07:29→20:09)
[2018-03-13 09:29] LABS: Basophils # 0.1 K/mcL (0.0-0.2); Basophils % 0.9 %; Eosinophils # 0.5 K/mcL (0.0-0.6); Eosinophils % 5.9 %; Hemoglobin 8.9 g/dL (12.9-16.9); Immature Granulocytes % 0.5 % (0-4); Lymphocytes # 1.8 K/mcL (0.6-4.6); Lymphocytes % 22.4 %; Mean Corpuscular HGB Conc 30.7 g/dL (31.6-35.5); Mean Corpuscular Hemoglobin 27.2 pg (28.0-33.3); Mean Corpuscular Volume 88.7 fL (83.0-100.0); Mean Platelet Volume 11.2 fL (9.4-12.4); Monocytes # 0.7 K/mcL (0.0-1.3); Monocytes % 8.1 %; Platelet Count 256 K/mcL (140-400); Red Blood Count 3.27 M/mcL (4.19-5.50); Red Cell Distribution Width 15.5 % (11.5-14.5); Segmented Neutrophils % 62.2 %
[2018-03-13 09:35] LABS: BUN/Creatinine Ratio 11 (6-26); Blood Urea Nitrogen 14 mg/dL (6-20); Calcium 8.9 mg/dL (8.6-10.3); Carbon Dioxide 23 mEq/L (23-29); Chloride 108 mEq/L (98-107); Glucose 174 mg/dL (70-105); Osmolality,Calculated 293 (280-300); Potassium 4.6 mEq/L (3.5-5.1); Sodium 139 mEq/L (136-145); eGFR For Non-African Americans 59 (> 60)
[2018-03-13] MEDS: Piperacillin/Tazobactam 3.375 GM in 0.9 % Sodium Chloride Mini Bag 100 ML IVPB SCH ×3 (10:11→17:12)
[2018-03-13] MEDS: Lisinopril 20 MG TABLET PO SCH (10:12)
[2018-03-13] MEDS: Loratadine 10 MG TABLET PO SCH (10:12)
[2018-03-13] MEDS: Insulin LISPRO 300 UNITS/3 ML VIAL SQ SCH ×4 (10:12→20:53)
--- NOTE | 2018-03-13 10:37 | Internal Med Progress Note ---
Hospitalist Progress Note - Encounter Date of Encounter: 03/13/18 Time of Encounter: 10:37 - Subjective Interval History: 52 M Seen and evaluated at bedside He has a PMH of DM, Morbid Obesity, HTN, CKD III, afib, PAD, HLD, Chronic diabetic foot ulcer His foot MRI showed cuboid OM Infectous disease and podiatry are following He is complaining of chills this a.m, he is afebrile Wound culture showed Klebsiella Pneumo, Blood culture growing GPR in 1/2 bottles - Exam Vitals: Temp Pulse Resp BP Pulse Ox 98.2 F 74 16 159/81 96 03/13/18 06:28 03/13/18 06:28 03/13/18 07:30 03/13/18 06:28 03/13/18 07:30 Exam: Vitals: Reviewed and noted Gen: Not in distress, morbidly obese, speaks full sentences HEENT: Moist oral mucosa, not pale, not cyanotic Chest:CTAB Heart: S1, S2 only, no m/g/r Abdomen: Obese, not tender, no palpably enlarged organs Extremities: Chronic venous stasis L>R, R foot in dressing, not removed - Assessment and Plan (1) Sepsis Current Visit: Yes Status: Resolved Assessment and Plan: Evidenced by fever and leukocytosis; secondary to skin/soft tissue infection of right foot in the setting of diabetic foot ulcer. Blood culture froo 03/09 with GPR in 1 bottle out of 2 Wound culture with klebsiella MRI showed OM of R cuboid, podiatry and ID following Continue Zosyn Afebrile at this time Rpt blood cultures scheduled today 03/13 (2) HLD (hyperlipidemia) Current Visit: Yes Status: Chronic Assessment and Plan: Continue statin. (3) Diabetic foot ulcer Current Visit: Yes Status: Acute Assessment and Plan: Mgt as in sepsis continue wound care per podiatry Foot MRI with OM, may need bone biopsy Podiatry following Ensure glucose control (4) Morbid obesity with BMI of 50.0-59.9, adult Current Visit: Yes Status: Chronic Assessment and Plan: lifestyle modification (5) Cellulitis of right foot Current Visit: Yes Status: Acute Assessment and Plan: See sepsis (6) Hypertensive renal disease with renal failure Current Visit: Yes Status: Chronic Assessment and Plan: controlled, continue current meds (7) PAF (paroxysmal atrial fibrillation) Current Visit: Yes Status: Chronic Assessment and Plan: continue current meds HR controlled (8) PAD (peripheral artery disease) Current Visit: Yes Status: Chronic (9) Osteomyelitis of right foot Current Visit: Yes Status: Acute Assessment and Plan: Per MRI Follow bone biopsy - Time Spent with Patient Total time spent is greater than 50% in coordination of care (as documented) at patient's floor/unit and/or counseling patient: Plan of Care Discussed with: patient Internal Medicine: Result - Labs CBC & Chem 7: 03/13/18 08:27 03/13/18 08:27 Labs: Short CBC 03/13/18 Range/Units 08:27 WBC 8.0 (4.3-11.1) K/mcL Hgb 8.9 L (12.9-16.9) g/dL Hct 29.0 L (37.5-50.1) % Plt Count 256 (140-400) K/mcL Neutrophils # 5.0 (1.6-8.9) K/mcL BMP 03/13/18 08:27 Sodium 139 Potassium 4.6 Chloride 108 H Carbon Dioxide 23 BUN 14 Creatinine 1.28 Glucose 174 H Calcium 8.9 - ABG Interpretation ABG results: PT/INR, D-dimer PT 18.8 Seconds (9.4-12.1) H 03/13/18 06:19 - Impressions Impressions Foot MRI 03/12/18 11:34 IMPRESSION: 1. Chronic ulceration along the plantar foot at the level of the cuboid with underlying marrow signal changes of the cuboid compatible with osteomyelitis. 2. 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 3. Soft tissue edema mild postcontrast enhancement suggestive of cellulitis. No organized drainable fluid collection identified. 4. 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 5. Chronic tendinosis of the distal peroneus longus tendon. D/ / Orlando Lyles MD / Orlando Lyles MD Interpreting Provider: Orlando Lyles MD Consult Discharge Plan - Plan Additional Instructions: Follow in wound care clinic with Dr. Leone. Please make appointment prior to D/C Referrals: Henrry Leone DPM [Partnered Physician] - Jaime Paula MD [Primary Care Provider] - (1) Sepsis Qualifiers: Sepsis type: sepsis due to unspecified organism Qualified Code(s): A41.9 - Sepsis, unspecified organism (2) HLD (hyperlipidemia) Qualifiers: Hyperlipidemia type: unspecified Qualified Code(s): E78.5 - Hyperlipidemia, unspecified (3) Diabetic foot ulcer Qualifiers: Diabetic foot ulcer location: midfoot Diabetes mellitus type: type 2 Laterality: right Non-pressure ulcer stage: unspecified non-pressure ulcer stage Qualified Code(s): E11.621 - Type 2 diabetes mellitus with foot ulcer; L97.419 - Non-pressure chronic ulcer of right heel and midfoot with unspecified severity (9) Osteomyelitis of right foot Qualifiers: Osteomyelitis type: other acute Qualified Code(s): M86.171 - Other acute osteomyelitis, right ankle and foot
--- NOTE | 2018-03-13 13:48 | Infectious Disease Progress No ---
Date of Encounter: 03/13/18 Time of Encounter: 12:00 - Assessment and Plan (1) Sepsis Current Visit: Yes Status: Resolved The patient had three SIRS Criteria on admission. Likely secondary to RLE cellulitis. Improved. Afebrile. WBC normal. Tachycardia resolved. Blood cultures drawn 03/09/18 are +1 out of 2 sets for gram-positive rods. Qualifiers: Sepsis type: sepsis due to unspecified organism Qualified Code(s): A41.9 - Sepsis, unspecified organism (2) Osteomyelitis of right foot Current Visit: Yes Status: Acute Location: Right foot cuboid bone. Causative organism: Klebsiella pneumoniae. Likely secondary to chronic nonhealing diabetic foot ulcer. ESR and CRP are elevated. Podiatry consulted. No plans for surgical intervention at this time. Continue Zosyn 3.375 g IV every 8 hours for now. Duration of treatment depends on the clinical picture, but likely total of 6 weeks of IV antibiotics. Monitor renal function for drug toxicity and distress antibiotics. Further OPAT recommendations as stated below. Qualifiers: Osteomyelitis type: other acute Qualified Code(s): M86.171 - Other acute osteomyelitis, right ankle and foot (3) Cellulitis Current Visit: No Status: Acute Location: RLE. Causative organism: K. pneumoniae. Non-purulent. Likely secondary to chronic diabetic foot ulcer. Podiatry consulted. Check ESR and CRP.--> 50/27. Repeat ESR 80. MRI of the right foot showed a chronic ulceration to the plantar foot at the level of the cuboid with underlying marrow signal changes of the cuboid compatible with osteomyelitis. There is soft tissue edema suggestive of cellulitis, but no organized drainable fluid collection. At this point, Podiatry does not plan on surgical intervention. Wound care per the podiatry team. Continue Zosyn 3.375 grams IV Q8H. Duration of treatment depends on the clinical picture, but likely a total of 6 weeks of IV antibiotics. Monitor renal function and dose-adjust antibiotics. Consult VAT prior to discharge for IV line placement. Will need weekly CBC, BUN/Cr, ESR, CRP. Will need weekly IV care per protocol. Follow up with ID two weeks post-discharge. Qualifiers: Site of cellulitis: extremity Site of cellulitis of extremity: lower extremity Laterality: unspecified laterality Qualified Code(s): L03.119 - Cellulitis of unspecified part of limb (4) Bacteremia Current Visit: No Status: Acute Causative organism: Unclear. Blood cultures positive for gram-positive rods one out of 2 sets. Likely a contaminant. No further antibiotics required. (5) Diabetic foot ulcer Current Visit: Yes Status: Acute Location: Right foot. Chronic, non-healing. X-ray showed soft tissue swelling, but no bone abnormality. Podiatry consulted and following. MRI results as above. Wound cultures positive for K. pneumoniae. Wound care per the Podiatry team. Antibiotics as above. Qualifiers: Diabetic foot ulcer location: midfoot Diabetes mellitus type: type 2 Laterality: right Non-pressure ulcer stage: unspecified non-pressure ulcer stage Qualified Code(s): E11.621 - Type 2 diabetes mellitus with foot ulcer; L97.419 - Non-pressure chronic ulcer of right heel and midfoot with unspecified severity (6) A-fib Current Visit: Yes Status: Chronic Qualifiers: Atrial fibrillation type: chronic Qualified Code(s): I48.2 - Chronic atrial fibrillation (7) Charcot's joint of foot Current Visit: No Status: Chronic Qualifiers: Laterality: right Qualified Code(s): M14.671 - Charcot's joint, right ankle and foot (8) Type 2 diabetes mellitus Current Visit: No Status: Chronic Recommend aggressive glucose monitoring and control to promote wound healing and prevent re-infection. Management per the primary team. Qualifiers: Diabetes mellitus terminal worker insulin use: without senior care use Diabetes mellitus complication status: with skin complications Diabetes mellitus complication detail: with foot ulcer Qualified Code(s): E11.621 - Type 2 d iabetes mellitus with foot ulcer; L97.509 - Non-pressure chronic ulcer of other part of unspecified foot with unspecified severity (9) Morbid obesity with BMI of 45.0-49.9, adult Current Visit: No Status: Acute (10) CKD (chronic kidney disease) Current Visit: Yes Status: Acute Monitor renal function closely and dose-adjust antibiotics. Avoid nephrotoxins as able. Qualifiers: Chronic kidney disease stage: stage 3 (moderate) Qualified Code(s): N18.3 - Chronic kidney disease, stage 3 (moderate) (11) Allergy to multiple antibiotics Current Visit: No Status: Acute Reports allergies to Keflex, Sulfa, Levaquin, and Vanc. Can tolerate IV form of Levaquin, but PO causes severe nausea and vomiting. Vancomycin caused a skin rash. Took PO Bactrim recently without a problem. Recently took doxycycline and augmentin and had a rash, but it did not improve after stopping medications and the patient thinks it may have actually been the Lovenox he was on. - Subjective Interval history: Patient seen and examined. No acute events noted overnight. Patient states overall he feels well. Denies any fevers or chills or rigors. Denies chest pain, shortness of breath, or cough. Denies any nausea or vomiting, but does report 2 loose stools per day. Denies any abdominal pain or urinary complaints. Denies any pain in his joints or extremities. States he thinks the redness and swelling to his right lower extremity is improved. He denies any oral thrush or new skin lesions. Infect Dis PN-Objective Data - Labs CBC & Chem 7: 03/14/18 05:08 03/14/18 05:08 Labs: Laboratory Results - last 24 hr 03/11/18 03/11/18 03/12/18 16:27 19:54 20:19 WBC RBC Hgb Hct MCV MCH MCHC RDW Plt Count MPV Immature Gran % Seg Neutrophils % Lymphocytes % Monocytes % Eosinophils % Basophils % Neutrophils # Lymphocytes # Monocytes # Eosinophils # Basophils # PT INR Sodium Potassium Chloride Carbon Dioxide BUN Creatinine Est GFR ( Amer) Est GFR (Non-Af Amer) BUN/Creatinine Ratio Glucose POC Glucose 163 H 188 H 176 H Calculated Osmolality Calcium 03/13/18 03/13/18 03/13/18 06:19 08:01 08:27 WBC 8.0 RBC 3.27 L Hgb 8.9 L Hct 29.0 L MCV 88.7 MCH 27.2 L MCHC 30.7 L RDW 15.5 H Plt Count 256 MPV 11.2 Immature Gran % 0.5 Seg Neutrophils % 62.2 Lymphocytes % 22.4 Monocytes % 8.1 Eosinophils % 5.9 Basophils % 0.9 Neutrophils # 5.0 Lymphocytes # 1.8 Monocytes # 0.7 Eosinophils # 0.5 Basophils # 0.1 PT 18.8 H INR 1.7 Sodium Potassium Chloride Carbon Dioxide BUN Creatinine Est GFR ( Amer) Est GFR (Non-Af Amer) BUN/Creatinine Ratio Glucose POC Glucose 179 H Calculated Osmolality Calcium 03/13/18 03/13/18 08:27 11:20 WBC RBC Hgb Hct MCV MCH MCHC RDW Plt Count MPV Immature Gran % Seg Neutrophils % Lymphocytes % Monocytes % Eosinophils % Basophils % Neutrophils # Lymphocytes # Monocytes # Eosinophils # Basophils # PT INR Sodium 139 Potassium 4.6 Chloride 108 H Carbon Dioxide 23 BUN 14 Creatinine 1.28 Est GFR ( Amer) > 60 Est GFR (Non-Af Amer) 59 L BUN/Creatinine Ratio 11 Glucose 174 H POC Glucose 239 H Calculated Osmolality 293 Calcium 8.9 Cultures: Cultures 03/09/18 01:03 Blood Culture - Preliminary Peripheral Venipuncture Gram Positive Rods 03/09/18 11:30 Anaerobic Culture - Preliminary Right Foot At this time, no anaerobic growth is present. The culture will be finalized after 5 days of incubation. 03/09/18 11:30 Wound Culture - Final Right Foot Klebsiella [email or web address] pneumoniae 03/09/18 01:40 Blood Culture - Preliminary Peripheral Venipuncture Culture is incubating and being continuously monitored for growth. Final report to follow. - Impressions Impressions Foot MRI 03/12/18 11:34 IMPRESSION: 1. Chronic ulceration along the plantar foot at the level of the cuboid with underlying marrow signal changes of the cuboid compatible with osteomyelitis. 2. 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 3. Soft tissue edema mild postcontrast enhancement suggestive of cellulitis. No organized drainable fluid collection identified. 4. 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 5. Chronic tendinosis of the distal peroneus longus tendon. D/ / Orlando Lyles MD / Orlando Lyles MD Interpreting Provider: Orlando Lyles MD Exam - Constitutional Vitals: Temp Pulse Resp BP Pulse Ox 97.3 F L 75 14 182/77 96 03/13/18 11:23 03/13/18 11:23 03/13/18 11:23 03/13/18 11:23 03/13/18 11:23 General appearance: cooperative, morbidly obese, no acute distress - Head Head exam: Present: atraumatic, normal inspection, normocephalic - Eye Eye exam: Present: EOMI, normal appearance, PERRL Pupils: Present: normal accommodation - ENT ENT exam: Present: mucous membranes moist - Neck Neck exam: Present: normal inspection - Respiratory Respiratory exam: Present: CTAB. Absent: rales, respiratory distress, rhonchi, wheezes - Cardiovascular Cardiovascular exam: Present: RRR, +S1, +S2 - GI/Abdominal GI/Abdominal exam: Present: distended (obese), normal bowel sounds, soft. Absent: tenderness - Extremities Exam Extremities exam: Absent: normal inspection (Venous stasis dermatitisthe bilateral lower extremities, left greater than right. Dressing to the right foot is clean, dry, and intact. Erythema and swelling to the right lower extremity has improved. No warmth or tenderness noted on palpation.) - Neurological Exam Neurological exam: Present: alert, oriented X3, no focal deficits - Psychiatric Psychiatric exam: Present: normal affect, normal mood - Skin Skin exam: Present: dry, intact, normal color, warm Consult Discharge Plan - Plan Additional Instructions: Follow in wound care clinic with Dr. Leone. Please make appointment prior to D/C Referrals: Henrry Leone DPM [Partnered Physician] - Carolyn Izquierdo, HEMATOLOGY TECHNICIAN [Advanced Practice Nurse] - 03/29/18 2:05 pm Jaime Paula MD [Primary Care Provider] - - Attending Attestation I examined this patient and my medical decision-making was reviewed with the Resident Physician. I agree with the documented findings, disposition and treatment plan as described except to the extent set forth below.
--- NOTE | 2018-03-13 13:52 | Electrocardiograph Report ---
[place] [id number] Test Date: 2018-03-09 Pat Name: Elmer Jones Department: [id number] Room: 3A Gender: M [employer] Tra[employer]: : 1965 Requested By: Anjel Au Order Number: [id number] Reading MD: Yg Jaime Measurements Intervals [place] Rate: 109 P: 65 NH: 157 QRS: 90 QRSD: 92 T: 41 QT: 324 QTc: 437 Interpretive Statements Sinus tachycardia Low voltage, precordial leads Electronically Signed On 03-13-2018 13:50:27 EDT by Yg Jaime
--- NOTE | 2018-03-13 16:36 | Podiatry Progress Note ---
Date of Encounter: 03/13/18 Time of Encounter: 14:45 - Assessment and Plan (1) Diabetic foot ulcer Current Visit: Yes Status: Acute Right foot dressing intact with IAIN bandage. Continue IV antibiotics per ID recommendations. Culture positive for Klebsiella, blood cultures pending. MRI suspicious for OM. At this time patient stable with WBC in normal range. Previous bone biopsy on 01/12 negative for OM despite MRI showing OM. At this time no plan for surgery. Continue dressing changes as ordered. Can d/c from podiatry standpoint once ok with ID and internal medicine. Qualifiers: Diabetic foot ulcer location: midfoot Diabetes mellitus type: type 2 Laterality: right Non-pressure ulcer stage: unspecified non-pressure ulcer stage Qualified Code(s): E11.621 - Type 2 diabetes mellitus with foot ulcer; L97.419 - Non-pressure chronic ulcer of right heel and midfoot with unspecified severity (2) Cellulitis of right foot Current Visit: Yes Status: Acute Continue antibiotics as ordered per ID recommendation. Subjective Principal diagnosis: right foot ulcer Interval history: Patient sitting on side of bed. Alert and oriented 3. States nurse changed dressing today. Denies any other overnight events. Objective - Vital Signs Vital Signs: Vital Signs Temp Pulse Resp BP Pulse Ox 03/13/18 15:00 98.2 F 79 14 127/53 96 03/13/18 11:23 97.3 F L 75 14 182/77 96 03/13/18 07:30 16 96 03/13/18 06:28 98.2 F 74 16 159/81 96 03/13/18 03:51 98.0 F 80 16 127/58 96 03/12/18 20:13 18 98 03/12/18 19:29 98.3 F 78 18 163/79 96 Intake and Output 03/13/18 03/13/18 03/13/18 07:59 15:59 23:59 Intake Total 150 / 150 100 / 100 Output Total 0 / 0 0 / 0 Balance 150 / 150 100 / 100 Intake: IV Fluids 100 / 100 100 / 100 Zosyn 3.375 GM In 0.9 % Sodium 100 / 100 100 / 100 Chloride (Mini-Bag +) 100 ML @ 25 mls/hr IVPB Q8H [facility] Rx#: [id number] Oral 50 / 50 0 / 0 Output: Urine 0 / 0 0 / 0 Other: # Voids 1 2 # Bowel Movements 1 Weight 178.7 kg Blood Glucose* 239 178 Patient Weight 03/13/18 23:59 Weight 178.7 kg - Lab Result Diagrams: 03/13/18 08:27 03/13/18 08:27 Labs: Abnormal lab results RBC 3.27 M/mcL (4.19-5.50) L 03/13/18 08:27 Hgb 8.9 g/dL (12.9-16.9) L 03/13/18 08:27 Hct 29.0 % (37.5-50.1) L 03/13/18 08:27 MCH 27.2 pg (28.0-33.3) L 03/13/18 08:27 MCHC 30.7 g/dL (31.6-35.5) L 03/13/18 08:27 RDW 15.5 % (11.5-14.5) H 03/13/18 08:27 ESR 82 mm/hr (0-10) H 03/12/18 08:46 PT 18.8 Seconds (9.4-12.1) H 03/13/18 06:19 Chloride 108 mEq/L (98-107) H 03/13/18 08:27 Est GFR (Non-Af Amer) 59 (> 60) L 03/13/18 08:27 Glucose 174 mg/dL (70-105) H 03/13/18 08:27 POC Glucose 178 mg/dL (70-99) H 03/13/18 16:25 Magnesium 1.4 mg/dL (1.6-2.6) L 03/09/18 01:03 Total Bilirubin 0.2 mg/dL (0.3-1.0) L 03/09/18 01:03 AST 12 Units/L (13-39) L 03/09/18 01:03 C-Reactive Protein 17 mg/L (Less than 10) H 03/12/18 08:46 Microbiology, Last 48 Hours 03/13/18 14:05 Blood Culture - Preliminary Peripheral Venipuncture Culture is incubating and being continuously monitored for growth. Final report to follow. 03/13/18 14:05 Blood Culture - Preliminary Peripheral Venipuncture Culture is incubating and being continuously monitored for growth. Final report to follow. 03/09/18 01:03 Blood Culture - Preliminary Peripheral Venipuncture Gram Positive Rods 03/09/18 11:30 Anaerobic Culture - Preliminary Right Foot At this time, no anaerobic growth is present. The culture will be finalized after 5 days of incubation. Consult Discharge Plan - Plan Additional Instructions: Follow in wound care clinic with Dr. Leone. Please make appointment prior to D/C Referrals: Henrry Leone DPM [Partnered Physician] - Jaime Paula MD [Primary Care Provider] -
[2018-03-13] MEDS ORDERED: *HR* Warfarin 3 MG TABLET PO ONE (18:00)
[2018-03-14] MEDS: Piperacillin/Tazobactam 3.375 GM in 0.9 % Sodium Chloride Mini Bag 100 ML IVPB SCH ×2 (00:19→08:51)
[2018-03-14 05:44] LABS: Basophils # 0.1 K/mcL (0.0-0.2); Basophils % 0.6 %; Eosinophils # 0.5 K/mcL (0.0-0.6); Eosinophils % 6.5 %; Hematocrit 27.6 % (37.5-50.1); Hemoglobin 8.6 g/dL (12.9-16.9); Immature Granulocytes % 0.6 % (0-4); Lymphocytes % 25.5 %; Mean Corpuscular HGB Conc 31.2 g/dL (31.6-35.5); Mean Corpuscular Hemoglobin 27.2 pg (28.0-33.3); Mean Corpuscular Volume 87.3 fL (83.0-100.0); Mean Platelet Volume 10.9 fL (9.4-12.4); Monocytes # 0.6 K/mcL (0.0-1.3); Neutrophils # 4.7 K/mcL (1.6-8.9); Platelet Count 248 K/mcL (140-400); Red Blood Count 3.16 M/mcL (4.19-5.50); Red Cell Distribution Width 15.3 % (11.5-14.5); Segmented Neutrophils % 58.8 %
[2018-03-14 05:56] LABS: INR 1.6; Prothrombin Time 17.7 Seconds (9.4-12.1)
[2018-03-14 06:02] LABS: BUN/Creatinine Ratio 12 (6-26); Blood Urea Nitrogen 14 mg/dL (6-20); Calcium 8.7 mg/dL (8.6-10.3); Carbon Dioxide 23 mEq/L (23-29); Chloride 108 mEq/L (98-107); Glucose 183 mg/dL (70-105); Osmolality,Calculated 293 (280-300); Potassium 4.3 mEq/L (3.5-5.1); Sodium 139 mEq/L (136-145); eGFR For Non-African Americans > 60 (> 60)
[2018-03-14] MEDS: Budesonide/Formoterol 80/4.5 MDI IH SCH (07:45)
[2018-03-14] MEDS: Lisinopril 20 MG TABLET PO SCH (08:52)
[2018-03-14] MEDS: Loratadine 10 MG TABLET PO SCH (08:52)
[2018-03-14] MEDS: Insulin LISPRO 300 UNITS/3 ML VIAL SQ SCH ×3 (08:53→17:38)
--- NOTE | 2018-03-14 10:33 | Infectious Disease Progress No ---
Date of Encounter: 03/14/18 Time of Encounter: 10:10 - Assessment and Plan (1) Sepsis Status: Resolved The patient had three SIRS Criteria on admission. Likely secondary to RLE cellulitis. Improved. Afebrile. WBC normal. Tachycardia resolved. Blood cultures drawn 03/09/18 are +1 out of 2 sets for gram-positive rods. Repeat blood cultures drawn 03/13/18 are pending x 2 sets. Qualifiers: Sepsis type: sepsis due to unspecified organism Qualified Code(s): A41.9 - Sepsis, unspecified organism (2) Osteomyelitis of right foot Status: Acute Location: Right foot cuboid bone. Causative organism: Klebsiella pneumoniae. Likely secondary to chronic nonhealing diabetic foot ulcer. ESR and CRP are elevated. MRI showed findings consistent with OM of the cuboid bone. Previous MRIs also s howed possible OM of the cuboid bone, but previous bone biopsy was negative. Will discuss MRI with radiology to see if there is progression or worsening of the findings on MRI. Podiatry consulted. No plans for surgical intervention at this time. Discontinue Zosyn. Start Levaquin 750mg IV daily. Start flagyl 500mg PO TID. Duration of treatment depends on the clinical picture, but likely total of 6 weeks of IV antibiotics. Monitor renal function for drug toxicity and distress antibiotics. Consult VAT for midline placement prior to discharge. Will need weekly CBC, BUN/Cr, ESR, CRP. Will need weekly midline care per protocol. Follow up with ID 03/29/18 at 1405. Qualifiers: Osteomyelitis type: other acute Qualified Code(s): M86.171 - Other acute osteomyelitis, right ankle and foot (3) Cellulitis Status: Acute Location: RLE. Causative organism: K. pneumoniae. Non-purulent. Likely secondary to chronic diabetic foot ulcer. Podiatry consulted. Check ESR and CRP.--> 50/27. Repeat ESR 80. MRI of the right foot showed a chronic ulceration to the plantar foot at the level of the cuboid with underlying marrow signal changes of the cuboid compatible with osteomyelitis. There is soft tissue edema suggestive of cellulitis, but no organized drainable fluid collection. At this point, Podiatry does not plan on surgical intervention. Wound care per the podiatry team. Continue Zosyn 3.375 grams IV Q8H. Duration of treatment depends on the clinical picture, but likely a total of 6 weeks of IV antibiotics. Monitor renal function and dose-adjust antibiotics. Consult VAT prior to discharge for IV line placement. Will need weekly CBC, BUN/Cr, ESR, CRP. Will need weekly IV care per protocol. Follow up with ID 03/29/18 at 1405. Qualifiers: Site of cellulitis: extremity Site of cellulitis of extremity: lower extremity Laterality: unspecified laterality Qualified Code(s): L03.119 - Ce llulitis of unspecified part of limb (4) Bacteremia Status: Acute Causative organism: Unclear. Blood cultures positive for gram-positive rods one out of 2 sets. Likely a contaminant. Repeat blood cultures drawn 03/13/18 are pending x 2 sets. No further antibiotics required. (5) Diabetic foot ulcer Status: Chronic Location: Right foot. Chronic, non-healing. X-ray showed soft tissue swelling, but no bone abnormality. Podiatry consulted and following. MRI results as above. Wound cultures positive for K. pneumoniae. Wound care per the Podiatry team. Antibiotics as above. Qualifiers: Diabetic foot ulcer location: midfoot Diabetes mellitus type: type 2 Laterality: right Non-pressure ulcer stage: unspecified non-pressure ulcer stage Qualified Code(s): E11.621 - Type 2 diabetes mellitus with foot ulcer; L97.419 - Non-pressure chronic ulcer of right heel and midfoot with unspecified severity (6) A-fib Status: Chronic Qualifiers: Atrial fibrillation type: chronic Qualified Code(s): I48.2 - Chronic atrial fibrillation (7) Charcot's joint of foot Status: Chronic Qualifiers: Laterality: right Qualified Code(s): M14.671 - Charcot's joint, right ankle and foot (8) Type 2 diabetes mellitus Status: Chronic Recommend aggressive glucose monitoring and control to promote wound healing and prevent re-infection. Management per the primary team. 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 Avoid nephrotoxins as able. Qualifiers: Chronic kidney disease stage: stage 3 (moderate) Qualified Code(s): N18.3 - Chronic kidney disease, stage 3 (moderate) (11) Allergy to multiple antibiotics Status: Acute Reports allergies to Keflex, Sulfa, Levaquin, and Vanc. Can tolerate IV form of Levaquin, but PO causes severe nausea and vomiting. Vancomycin caused a skin rash. Took PO Bactrim recently without a problem. Recently took doxycycline and augmentin and had a rash, but it did not improve after stopping medications and the patient thinks it may have actually been the Lovenox he was on. - Subjective Interval history: Patient seen and examined. No acute events noted overnight. Patient states overall he feels well. Denies any fevers or chills or rigors. Denies chest pain, shortness of breath, or cough. Denies any nausea or vomiting, but does report 2 loose stools per day. Denies any abdominal pain or urinary complaints. Denies any pain in his joints or extremities. He denies any oral thrush or new skin lesions. Infect Dis PN-Objective Data - Labs CBC & Chem 7: 03/14/18 05:08 03/14/18 05:08 Labs: Laboratory Results - last 24 hr 03/12/18 03/12/18 03/13/18 11:12 17:48 11:20 WBC RBC Hgb Hct MCV MCH MCHC RDW Plt Count MPV Immature Gran % Seg Neutrophils % Lymphocytes % Monocytes % Eosinophils % Basophils % Neutrophils # Lymphocytes # Monocytes # Eosinophils # Basophils # PT INR Sodium Potassium Chloride Carbon Dioxide BUN Creatinine Est GFR ( Amer) Est GFR (Non-Af Amer) BUN/Creatinine Ratio Glucose POC Glucose 213 H 187 H 239 H Calculated Osmolality Calcium 03/13/18 03/13/18 03/14/18 16:25 20:22 05:08 WBC 8.0 RBC 3.16 L Hgb 8.6 L Hct 27.6 L MCV 87.3 MCH 27.2 L MCHC 31.2 L RDW 15.3 H Plt Count 248 MPV 10.9 Immature Gran % 0.6 Seg Neutrophils % 58.8 Lymphocytes % 25.5 Monocytes % 8.0 Eosinophils % 6.5 Basophils % 0.6 Neutrophils # 4.7 Lymphocytes # 2.0 Monocytes # 0.6 Eosinophils # 0.5 Basophils # 0.1 PT INR Sodium Potassium Chloride Carbon Dioxide BUN Creatinine Est GFR ( Amer) Est GFR (Non-Af Amer) BUN/Creatinine Ratio Glucose POC Glucose 178 H 207 H Calculated Osmolality Calcium 03/14/18 03/14/18 05:08 05:08 WBC RBC Hgb Hct MCV MCH MCHC RDW Plt Count MPV Immature Gran % Seg Neutrophils % Lymphocytes % Monocytes % Eosinophils % Basophils % Neutrophils # Lymphocytes # Monocytes # Eosinophils # Basophils # PT 17.7 H INR 1.6 Sodium 139 Potassium 4.3 Chloride 108 H Carbon Dioxide 23 BUN 14 Creatinine 1.21 Est GFR ( Amer) > 60 Est GFR (Non-Af Amer) > 60 BUN/Creatinine Ratio 12 Glucose 183 H POC Glucose Calculated Osmolality 293 Calcium 8.7 Cultures: Cultures 03/09/18 11:30 Anaerobic Culture - Final Right Foot No anaerobes were recovered. 03/09/18 01:03 Blood Culture - Preliminary Peripheral Venipuncture Gram Positive Rods 03/09/18 01:40 Blood Culture - Final Peripheral Venipuncture No growth. Final report. 03/13/18 14:05 Blood Culture - Preliminary Peripheral Venipuncture Culture is incubating and being continuously monitored for growth. Final report to follow. 03/13/18 14:05 Blood Culture - Preliminary Peripheral Venipuncture Culture is incubating and being continuously monito red for growth. Final report to follow. 03/09/18 11:30 Wound Culture - Final Right Foot Klebsiella [email or web address].[email or web address] pneumoniae Exam - Constitutional Vitals: Temp Pulse Resp BP Pulse Ox 97.5 F L 73 18 141/78 97 03/14/18 07:50 03/14/18 07:50 03/14/18 08:01 03/14/18 07:50 03/14/18 08:01 General appearance: cooperative, morbidly obese, no acute distress - Head Head exam: Present: atraumatic, normal inspection, normocephalic - Eye Eye exam: Present: EOMI, normal appearance, PERRL Pupils: Present: normal accommodation - ENT ENT exam: Present: mucous membranes moist - Neck Neck exam: Present: normal inspection - Respiratory Respiratory exam: Present: CTAB. Absent: rales, respiratory distress, rhonchi, wheezes - Cardiovascular Cardiovascular exam: Present: irregular rhythm, +S1, +S2. Absent: tachycardia - GI/Abdominal GI/Abdominal exam: Present: distended (obese), normal bowel sounds, soft. Absent: tenderness - Extremities Exam Extremities exam: Present: pedal edema (1+ BLE). Absent: joint swelling, normal inspection (Venous stasis dermatitis noted to the BLE, left worse than right. Right foot dressing C/D/I. ), tenderness Additional comments: Erythema to the RLE has improved. - Neurological Exam Neurological exam: Present: alert, oriented X3, no focal deficits - Psychiatric Psychiatric exam: Present: normal affect, normal mood - Skin Skin exam: Present: dry, intact, normal color, warm Consult Discharge Plan - Plan Instructions: Atrial Fibrillation (DC), Cellulitis (DC), Diabetes Mellitus Type 2 in Adults (DC), Sepsis (DC) Additional Instructions: Follow in wound care clinic with Dr. Leone. Please make appointment prior to D/C Referrals: Henrry Leone DPM [Partnered Physician] - 03/15/18 10:30 am Carolyn Izquierdo CNP [Advanced Practice Nurse] - 03/29/18 2:05 pm Ni Yepez CNP [Advanced Practice Nurse] - 03/19/18 10:00 am Prescriptions: Levofloxacin 750 MG/150 ML [Levaquin Premix 750mg/150 mL] 750 mg IVPB DAILY 28 Days #28 bag metroNIDAZOLE [Flagyl] 500 mg PO TID #84 tablet - Attending Attestation I examined this patient and my medical decision-making was reviewed with the Resident Physician. I agree with the documented findings, disposition and treatment plan as described except to the extent set forth below.
--- NOTE | 2018-03-14 11:01 | Internal Med Progress Note ---
Hospitalist Progress Note - Encounter Time of Encounter: 09:00 - Subjective Interval History: 52 M Seen and evaluated at bedside He has a PMH of DM, Morbid Obesity, HTN, CKD III, afib, PAD, HLD, Chronic diabetic foot ulcer His foot MRI showed cuboid OM Infectous disease and podiatry are following He is complaining of chills this a.m, he is afebrile Wound culture showed Klebsiella Pneumo, Blood culture growing GPR in 1/2 bottles - Exam Vitals: Temp Pulse Resp BP Pulse Ox 97.5 F L 73 18 141/78 97 03/14/18 07:50 03/14/18 07:50 03/14/18 08:01 03/14/18 07:50 03/14/18 08:01 - Assessment and Plan (1) Sepsis Current Visit: Yes Status: Resolved (2) HLD (hyperlipidemia) Current Visit: Yes Status: Chronic (3) Diabetic foot ulcer Current Visit: Yes Status: Acute (4) Morbid obesity with BMI of 50.0-59.9, adult Current Visit: Yes Status: Chronic (5) Cellulitis of right foot Current Visit: Yes Status: Acute (6) Hypertensive renal disease with renal failure Current Visit: Yes Status: Chronic (7) PAF (paroxysmal atrial fibrillation) Current Visit: Yes Status: Chronic (8) PAD (peripheral artery disease) Current Visit: Yes Status: Chronic (9) Osteomyelitis of right foot Current Visit: Yes Status: Acute - Time Spent with Patient Total time spent is greater than 50% in coordination of care (as documented) at patient's floor/unit and/or counseling patient: Internal Medicine: Result - Labs CBC & Chem 7: 03/14/18 05:08 03/14/18 05:08 Labs: Short CBC 03/14/18 Range/Units 05:08 WBC 8.0 (4.3-11.1) K/mcL Hgb 8.6 L (12.9-16.9) g/dL Hct 27.6 L (37.5-50.1) % Plt Count 248 (140-400) K/mcL Neutrophils # 4.7 (1.6-8.9) K/mcL BMP 03/14/18 05:08 Sodium 139 Potassium 4.3 Chloride 108 H Carbon Dioxide 23 BUN 14 Creatinine 1.21 Glucose 183 H Calcium 8.7 - ABG Interpretation ABG results: PT/INR, D-dimer PT 17.7 Seconds (9.4-12.1) H 03/14/18 05:08 Consult Discharge Plan - Plan Additional Instructions: Follow in wound care clinic with Dr. Leone. Please make appointment prior to D/C Referrals: Henrry Leone DPM [Partnered Physician] - Carolyn Izquierdo RO[employer] CROSSING GUARD [Advanced Practice Nurse] - 03/29/18 2:05 pm Jaime Paula MD [Primary Care Provider] - (1) Sepsis Qualifiers: Sepsis type: sepsis due to unspecified organism Qualified Code(s): A41.9 - Sepsis, unspecified organism (2) HLD (hyperlipidemia) Qualifiers: Hyperlipidemia type: unspecified Qualified Code(s): E78.5 - Hyperlipidemia, unspecified (3) Diabetic foot ulcer Qualifiers: Diabetic foot ulcer location: midfoot Diabetes mellitus type: type 2 Laterality: right Non-pressure ulcer stage: unspecified non-pressure ulcer stage Qualified Code(s): E11.621 - Type 2 diabetes mellitus with foot ulcer; L97.419 - Non-pressure chronic ulcer of right heel and midfoot with unspecified severity (9) Osteomyelitis of right foot Qualifiers: Osteomyelitis type: other acute Qualified Code(s): M86.171 - Other acute osteomyelitis, right ankle and foot
[2018-03-14 11:18] VITALS: BP 149/73
--- NOTE | 2018-03-14 14:13 | Podiatry Progress Note ---
Date of Encounter: 03/14/18 Time of Encounter: 10:55 - Assessment and Plan (1) Diabetic foot ulcer Current Visit: Yes Status: Acute Right foot dressing Ainge. Old dressing with serosanguineous drainage noted. 2.6 cm of tunneling noted to 09:00. Wound packed with Mesalt, covered with 4 x 4 dry skin gauze, and Kerlex. Continue IV antibiotics per ID recommendations. Culture positive for Klebsiella, blood cultures pending. MRI suspicious for OM. Previous bone biopsy on 01/12 negative for OM despite MRI showing OM. At this time no plan for surgery. Continue dressing changes as ordered. Can d/c from podiatry standpoint once ok with ID and internal medicine. Qualifiers: Diabetic foot ulcer location: midfoot Diabetes mellitus type: type 2 Laterality: right Non-pressure ulcer stage: unspecified non-pressure ulcer stage Qualified Code(s): E11.621 - Type 2 diabetes mellitus with foot ulcer; L97.419 - Non-pressure chronic ulcer of right heel and midfoot with unspecified severity (2) Cellulitis of right foot Current Visit: Yes Status: Acute Continue antibiotics as ordered per ID recommendation. Subjective Principal diagnosis: right foot ulcer Interval history: Patient sitting in bed. Alert and oriented 3. Denies overnight events Objective - Vital Signs Vital Signs: Vital Signs Temp Pulse Resp BP Pulse Ox 03/14/18 11:02 98.1 F 80 16 149/73 96 03/14/18 08:01 18 97 03/14/18 07:50 97.5 F L 73 16 141/78 96 03/14/18 02:31 98.1 F 75 14 113/50 97 03/13/18 20:09 16 96 03/13/18 19:15 97.5 F L 80 14 126/50 96 03/13/18 15:00 98.2 F 79 14 127/53 96 Intake and Output 03/13/18 03/14/18 03/14/18 23:59 07:59 15:59 Intake Total 100 / 100 220 / 220 700 / 700 Output Total 0 / 0 0 / 0 Balance 100 / 100 220 / 220 700 / 700 Intake: IV Fluids 100 / 100 100 / 100 100 / 100 Zosyn 3.375 GM In 0.9 % Sodium 100 / 100 100 / 100 100 / 100 Chloride (Mini-Bag +) 100 ML @ 25 mls/hr IVPB Q8HR [facility] Rx#: [id number] Oral 0 / 0 120 / 120 600 / 600 Output: Urine 0 / 0 0 / 0 Other: Meal Dinner Breakfast Percent of Meal Consumed 100% 100% # Voids 1 1 Weight 176.3 kg Blood Glucose* 207 198 205 Patient Weight 03/14/18 23:59 Weight 176.3 kg - Exam Exam: Constitiutional: Alert and oriented x 3. Morbidly obese Vascular: 2/4 DP/PT bilaterally, CFT <3 sec to all digits, warm to warm from tibia to toes bilaterally, 3/4 edema noted. Neurologic: Diminished sensation to touch, normal plantar response, Normal position sense dorsiflexion/plantar flexion Dermatologic: Right foot plantar ulcer noted. Measuring 2 x 2 x 1 cm with tunneling noted to 2.6 cm deep at 9:00, plantar midfoot pain can color, right calf erythematous and warm to touch. Musculoskeletal: 4/5 muscle strength and normal tone bilaterallly - Lab Result Diagrams: 03/14/18 05:08 03/14/18 05:08 Labs: Abnormal lab results RBC 3.16 M/mcL (4.19-5.50) L 03/14/18 05:08 Hgb 8.6 g/dL (12.9-16.9) L 03/14/18 05:08 Hct 27.6 % (37.5-50.1) L 03/14/18 05:08 MCH 27.2 pg (28.0-33.3) L 03/14/18 05:08 MCHC 31.2 g/dL (31.6-35.5) L 03/14/18 05:08 RDW 15.3 % (11.5-14.5) H 03/14/18 05:08 ESR 82 mm/hr (0-10) H 03/12/18 08:46 PT 17.7 Seconds (9.4-12.1) H 03/14/18 05:08 Chloride 108 mEq/L (98-107) H 03/14/18 05:08 Glucose 183 mg/dL (70-105) H 03/14/18 05:08 POC Glucose 207 mg/dL (70-99) H 03/13/18 20:22 Magnesium 1.4 mg/dL (1.6-2.6) L 03/09/18 01:03 Total Bilirubin 0.2 mg/dL (0.3-1.0) L 03/09/18 01:03 AST 12 Units/L (13-39) L 03/09/18 01:03 C-Reactive Protein 17 mg/L (Less than 10) H 03/12/18 08:46 Microbiology, Last 48 Hours 03/09/18 11:30 Anaerobic Culture - Final Right Foot No anaerobes were recovered. 03/09/18 01:03 Blood Culture - Preliminary Peripheral Venipuncture Gram Positive Rods 03/09/18 01:40 Blood Culture - Final Peripheral Venipuncture No growth. Final report. 03/13/18 14:05 Blood Culture - Preliminary Peripheral Venipuncture Culture is incubating and being continuously monitored for growth. Final report to follow. 03/13/18 14:05 Blood Culture - Preliminary Peripheral Venipuncture Culture is incubating and being continuously monitored for growth. Final report to follow. Consult Discharge Plan - Plan Additional Instructions: Follow in wound care clinic with Dr. Lenoe. Please make appointment prior to D/C Referrals: Henrry Leone DPM [Partnered Physician] - Carolyn Izquierdo, HEATING AND COOLING TECHNICIAN [Advanced Practice Nurse] - 03/29/18 2:05 pm Jaime Paula MD [Primary Care Provider] - Prescriptions: Levofloxacin 750 MG/150 ML [Levaquin Premix 750mg/150 mL] 750 mg IVPB DAILY 28 Days #28 bag metroNIDAZOLE [Flagyl] 500 mg PO TID #84 tablet
[2018-03-14] MEDS ORDERED: Levofloxacin 750 MG/150 ML 750 MG/150 ML BAG IVPB SCH (14:45)
[2018-03-14] MEDS ORDERED: metroNIDAZOLE 500 MG TABLET PO SCH (15:00)
--- NOTE | 2018-03-14 15:31 | Discharge Summary ---
- NOTES TO OUTPATIENT PROVIDER Notes to Outpatient Provider: Patient admitted for sepsis due to cellulitis and OM of R foot due to klebsiella, he also has bacteremia, suspected to be due to Klesbsiella. he is discharged home by ID recommendation on levaquin IV for 4 - 6 weeks with appropriate follow up with ID and Podiatry as well as own PCP for INR check. Sepsis has resolved and patient has been afebrile with no leukocytosis. Discharged home in clinically stable condition. Orders not resulted at time of discharge: Pending orders 03/09/18 01:40 Culture,Blood [BC] Stat 03/13/18 14:05 Culture,Blood [BC] Stat 03/15/18 04:00 CBC [Complete Blood Count] [HEME] AM 0400 Chem 7 [Basic Metabolic Panel] AM 0400 PT/INR [Prothrombin Time INR] [COAG] AM 0400 03/16/18 04:00 PT/INR [Prothrombin Time INR] [COAG] AM 0400 03/17/18 04:00 PT/INR [Prothrombin Time INR] [COAG] AM 0400 03/18/18 04:00 PT/INR [Prothrombin Time INR] [COAG] AM 0400 Date of Encounter: 03/14/18 Time of Encounter: 09:50 - Discharge Diagnosis (1) Sepsis Priority: Primary Status: Resolved Assessment and Plan: Resolved Presented with fever and leukocytosis; secondary to skin/soft tissue infection of right foot in the setting of diabetic foot ulcer. Blood culture from 03/09 with GPR in 1 bottle out of 2, likely contaminant, repeat blood cultures done 03/13 negative till date Wound culture with klebsiella MRI showed OM of R cuboid, podiatry and ID following Received 4 days of Zosyn inpatient Per ID recommendations, discharged on levaquin IV 750mg daily and flagyl po Qualifiers: Sepsis type: sepsis due to unspecified organism Qualified Code(s): A41.9 - Sepsis, unspecified organism (2) HLD (hyperlipidemia) Priority: Primary Status: Chronic Assessment and Plan: Continue statin. Qualifiers: Hyperlipidemia type: unspecified Qualified Code(s): E78.5 - Hyperlipidemia, unspecified (3) Diabetic foot ulcer Priority: Primary Status: Chronic Assessment and Plan: Mgt as in sepsis continue wound care per podiatry Foot MRI with OM Discharged home on prolonged antibiotics Follow up with Infectious disease and podiatry as outpatient Wound care per home health Qualifiers: Diabetic foot ulcer location: midfoot Diabetes mellitus type: type 2 Laterality: right Non-pressure ulcer stage: unspecified non-pressure ulcer stage Qualified Code(s): E11.621 - Type 2 diabetes mellitus with foot ulcer; L97.419 - Non-pressure chronic ulcer of right heel and midfoot with unspecified severity (4) Morbid obesity with BMI of 50.0-59.9, adult Priority: Secondary Status: Chronic Assessment and Plan: lifestyle modification (5) Cellulitis of right foot Priority: Primary Status: Acute Assessment and Plan: See sepsis (6) Hypertensive renal disease with renal failure Priority: Secondary Status: Chronic Assessment and Plan: controlled, continue current meds (7) PAF (paroxysmal atrial fibrillation) Priority: Secondary Status: Chronic Assessment and Plan: continue current meds HR controlled, continue warfarin at home dose, follow up with PCP for INR check (8) PAD (peripheral artery disease) Priority: Secondary Status: Chronic (9) Osteomyelitis of right foot Priority: Primary Status: Acute Assessment and Plan: Per MRI COntinue levaquin IV and flagyl po Qualifiers: Osteomyelitis type: other acute Qualified Code(s): M86.171 - Other acute osteomyelitis, right ankle and foot Hospital course: Mr. Jones is a 52 year old male with PMH of DM, Morbid Obesity, HTN, CKD III, afib, PAD, HLD, Chronic diabetic foot ulcer Patient admitted for sepsis due to cellulitis and OM of R foot due to klebsiella, he also has bacteremia, suspected to be due to Klebsiella. he is discharged home by ID recommendation on levaquin IV for 4 - 6 weeks with appropriate follow up with ID and Podiatry as well as own PCP. Sepsis has resolved and patient has been afebrile with no leukocytosis. Discharged home in clinically stable condition See each diagnosis for details of hospital stay Discharge discussed with: patient, nurse, social work, case management, recruitment consultant - Time Spent with Patient Total time spent providing and/or coordinating discharge services: Greater than 30 minutes (40 mins) - Discharge Medications Prescriptions: Levofloxacin 750 MG/150 ML [Levaquin Premix 750mg/150 mL] 750 mg IVPB DAILY 28 Days #28 bag metroNIDAZOLE [Flagyl] 500 mg PO TID #84 tablet Home Medications: Acetaminophen [Tylenol] 500 mg PO HS 12/02/16 [History] Carvedilol Phosphate [Coreg Cr] 80 mg PO DAILY 12/02/16 [History] Fluticasone/Salmeterol [Advair 250-50 Diskus] 1 each IH BID PRN 12/02/16 [History] Furosemide [Lasix] 40 mg PO BID 12/02/16 [History] Insulin Glargine,Hum.rec.anlog [Lantus Solostar] 46 units SQ BID 12/02/16 [History] Metformin HCl [Glucophage] 1,000 mg PO BID 12/02/16 [History] Pentoxifylline 400 mg PO BID 12/02/16 [History] Pramipexole [Mirapex] 0.25 mg PO BID 12/02/16 [History] Loratadine [Claritin] 10 mg PO DAILY tablet 11/17/17 [Rx] Albuterol Sulfate [Ventolin Hfa] 2 puff IH Q4H PRN 01/05/18 [History] Atorvastatin [Lipitor] 40 mg PO HS 01/05/18 [History] Insulin LISPRO [HumaLOG] 10 units SQ TIDWM 01/05/18 [History] Lansoprazole [Prevacid] 30 mg PO DAILY 01/05/18 [History] Lisinopril [Zestril] 20 mg PO DAILY 01/05/18 [History] Warfarin [Coumadin] 10 mg PO DAILY 03/09/18 [History] Levofloxacin 750 MG/150 ML [Levaquin Premix 750mg/150 mL] 750 mg IVPB DAILY 28 Days #28 bag 03/14/18 [Rx] metroNIDAZOLE [Flagyl] 500 mg PO TID #84 tablet 03/14/18 [Rx] Allergies/Adverse Reactions: Allergy/AdvReac Type Severity Reaction Status Date / Time vancomycin Allergy Intermediate Itching Verified 01/05/18 19:34 peanut Allergy Anaphylaxis Verified 03/25/17 00:00 cephalexin [From Keflex] AdvReac Rash Verified 03/25/17 00:00 levofloxacin AdvReac Rash Verified 03/25/17 00:00 Sulfa (Sulfonamide AdvReac Rash Verified 03/25/17 00:00 Antibiotics) Date of admission: 03/09/18 04:07 Primary care physician: Jaime Paula MD Consults: 03/09/18 04:16 Consult to Infectious Diseases [CONS] Routine Consulting Provider: Infectious Disease [facility] Reason for Consult: Patient known to service for recurring infections from diabetic foot ulcer now presenting with sepsis and inflammatory signs Call Completed: No Consult to Podiatry [CONS] Routine Consulting Provider: [facility] Reason for Consult: Patient being followed for diabeti foot ulcer with recurring infections now in sepsis with inflammatory signs. Call Completed: No 03/14/18 12:46 PICC LINE [Consult to Invasive Line Access Team] [CONS] Routine Reason for Consult: Prlonged antibiotics Line Type: PICC Discharging clinician: Dani Hodges Anticipated date of discharge: 03/14/18 - Constitutional Vitals: Temp Pulse Resp BP Pulse Ox 98.1 F 80 16 149/73 96 03/14/18 11:02 03/14/18 11:02 03/14/18 11:02 03/14/18 11:02 03/14/18 11:02 Exam: Vitals: Reviewed and noted Gen: Not in distress, morbidly obese, speaks full sentences HEENT: Moist oral mucosa, not pale, not cyanotic Chest:CTAB Heart: S1, S2 only, no m/g/r Abdomen: Obese, not tender, no palpably enlarged organs Extremities: Chronic venous stasis L>R, R foot in dressing, not removed - Patient Status Disposition: Home Health Service Condition: Good Functional capacity at discharge: independent ambulation Overall status at discharge: patient is progressing back to baseline - Discharge Instructions Follow Up With: Henrry Leone DPM [Partnered Physician] - Carolyn Izquierdo, [employer] [Advanced Practice Nurse] - 03/29/18 2:05 pm Jaime Paula MD [Primary Care Provider] - Additional Instructions: Follow in wound care clinic with Dr. Leone. Please make appointment prior to D/C - Diet and Activity Activity: resume usual activities as tolerated Diet: diabetic diet, low fat, low cholesterol, low salt diet
--- NOTE | 2018-03-14 15:46 | Physician Discharge Referral ---
Home Health/Hosp Referral Info Transfer to: Home Health Attending Provider: Berenice Hodges Provider in Charge Post Discharge: PCP - Diagnosis (1) Sepsis Priority: Primary Status: Resolved (2) HLD (hyperlipidemia) Priority: Secondary Status: Chronic (3) Diabetic foot ulcer Priority: Secondary Status: Chronic (4) Morbid obesity with BMI of 50.0-59.9, adult Priority: Secondary Status: Chronic (5) Cellulitis of right foot Priority: Primary Status: Acute (6) Hypertensive renal disease with renal failure Priority: Secondary Status: Chronic (7) PAF (paroxysmal atrial fibrillation) Priority: Secondary Status: Chronic (8) PAD (peripheral artery disease) Priority: Secondary Status: Chronic (9) Osteomyelitis of right foot Priority: Primary Status: Acute - Respiratory Orders Smoking Cessation: Smoking cessation has been advised. For more information, call the [employer] Tobacco Quit Line at 2-318-ENJA-NOW. - Dressing/Wound Care Site: Right foot Type of Dressing/Treatments w/Frequency: pack wound with mesalt. Cover with 4x4, kerlex, and IAIN. Dressing to be changed daily - Diet/Nutrition Diet/Nutrition Orders: Renal, Cardiac, No Concentrated Sweets - Activity Activity Orders: Up ad vikram - Services Needed Following services are medically necessary services: Nursing, Home Health Aide, Home Infusion - Transfer Medications Prescriptions: Levofloxacin 750 MG/150 ML [Levaquin Premix 750mg/150 mL] 750 mg IVPB DAILY 28 Days #28 bag metroNIDAZOLE [Flagyl] 500 mg PO TID #84 tablet Home Medications: Acetaminophen [Tylenol] 500 mg PO HS 12/02/16 [History] Carvedilol Phosphate [Coreg Cr] 80 mg PO DAILY 12/02/16 [History] Fluticasone/Salmeterol [Advair 250-50 Diskus] 1 each IH BID PRN 12/02/16 [History] Furosemide [Lasix] 40 mg PO BID 12/02/16 [History] Insulin Glargine,Hum.rec.anlog [Lantus Solostar] 46 units SQ BID 12/02/16 [History] Metformin HCl [Glucophage] 1,000 mg PO BID 12/02/16 [History] Pentoxifylline 400 mg PO BID 12/02/16 [History] Pramipexole [Mirapex] 0.25 mg PO BID 12/02/16 [History] Loratadine [Claritin] 10 mg PO DAILY tablet 11/17/17 [Rx] Albuterol Sulfate [Ventolin Hfa] 2 puff IH Q4H PRN 01/05/18 [History] Atorvastatin [Lipitor] 40 mg PO HS 01/05/18 [History] Insulin LISPRO [HumaLOG] 10 units SQ TIDWM 01/05/18 [History] Lansoprazole [Prevacid] 30 mg PO DAILY 01/05/18 [History] Lisinopril [Zestril] 20 mg PO DAILY 01/05/18 [History] Warfarin [Coumadin] 10 mg PO DAILY 03/09/18 [History] Levofloxacin 750 MG/150 ML [Levaquin Premix 750mg/150 mL] 750 mg IVPB DAILY 28 Days #28 bag 03/14/18 [Rx] metroNIDAZOLE [Flagyl] 500 mg PO TID #84 tablet 03/14/18 [Rx] Allergies/Adverse Reactions: Allergy/AdvReac Type Severity Reaction Status Date / Time vancomycin Allergy Intermediate Itching Verified 01/05/18 19:34 peanut Allergy Anaphylaxis Verified 03/25/17 00:00 cephalexin [From Keflex] AdvReac Rash Verified 03/25/17 00:00 levofloxacin AdvReac Rash Verified 03/25/17 00:00 Sulfa (Sulfonamide AdvReac Rash Verified 03/25/17 00:00 Antibiotics) Certification: Further, I certify that my clinical findings support that this patient is homebound (i.e. absences from home require considerable and taxing effort and are for medical reasons or catholic services or infrequently or short duration when for other reasons) because: Homebound Reason: Patient requires assistance of a person or device to safely leave home Attestation: My signature below is to certify that this patient is under my care and that I, or nurse practitioner, or a physician's radiology assistant working with me, has a [id number] encounter with this patient.
[2018-03-14] MEDS ORDERED: *HR* Warfarin 3 MG TABLET PO ONE (18:00)
== END 2018-03-14 18:47 | disposition home health service (06) | DRG 872 ==
LOC: EMEROOARM 00:36 → SUATTDRO 04:07 → 3ANU 04:07
PROVIDERS: ADMIT Internal Medicine; ATTEND Internal Medicine

== ENCOUNTER 2018-09-30 11:25 | Inpatient (IN) ==
[2018-09-30] MEDS ORDERED: Doxycycline 100 MG in 0.9 % Sodium Chloride Mini Bag 100 ML IVPB ONE ×2 (11:34→15:12)
--- NOTE | 2018-09-30 11:45 | Emergency Department Note ---
Disposition Clinical Impression: Hyperkalemia, Loose stools Fever Qualifiers: Fever type: unspecified Qualified Code(s): R50.9 - Fever, unspecified Nausea and vomiting Qualifiers: Vomiting type: unspecified Vomiting Intractability: non-intractable Qualified Code(s): R11.2 - Nausea with vomiting, unspecified Disposition: Admitted As Inpatient Condition: Fair Referrals: Jaime Paula MD [Primary Care Provider] - Forms: ED Satisfaction Letter Time of Disposition: 16:15 Fever HPI - General Chief Complaint: ED Fever Stated Complaint: General illness Time Seen by Provider: 09/30/18 11:30 Source: EMS Limitations: no limitations Nursing Notes Reviewed: Yes Vital Signs Reviewed: Yes - History of Present Illness HPI Narrative: 52yo male presents from home via EMS for evaluation of general illness, fever, rigors. Onset this morning upon awakening. Associated with 3-4 days of generalized abdominal pain with "sulfur-smelling" belches and flatus associated with watery loose stools. No measured fever at home. No recent antibiotics. Patient had PICC line removed mid May after receiving 8 weeks of IV antibiotics at home for sepsis secondary to diabetic foot ulcer. Patient is DM I. home blood glucose has been in the 200's. Patient's diabetic foot ulcer is healing well. ROS: Positive: Chills, general illness, nausea, loose stools Negative: Vomiting, dyspnea, diaphoresis, abdominal pain - Related Data Home Medications Medication Instructions Recorded Confirmed Acetaminophen [Tylenol] 500 mg PO HS 12/02/16 03/09/18 Carvedilol Phosphate [Coreg Cr] 80 mg PO DAILY 12/02/16 03/09/18 Fluticasone/Salmeterol [Advair 1 each IH BID PRN 12/02/16 03/09/18 250-50 Diskus] Furosemide [Lasix] 40 mg PO BID 12/02/16 03/09/18 Insulin Glargine,Hum.rec.anlog 46 units SQ BID 12/02/16 03/09/18 [Lantus Solostar] Metformin HCl [Glucophage] 1,000 mg PO BID 12/02/16 03/09/18 Pentoxifylline 400 mg PO BID 12/02/16 03/09/18 Pramipexole [Mirapex] 0.25 mg PO BID 12/02/16 03/09/18 Albuterol Sulfate [Ventolin Hfa] 2 puff IH Q4H PRN 01/05/18 03/09/18 Atorvastatin [Lipitor] 40 mg PO HS 01/05/18 03/09/18 Insulin LISPRO [HumaLOG] 10 units SQ TIDWM 01/05/18 03/09/18 Lansoprazole [Prevacid] 30 mg PO DAILY 01/05/18 03/09/18 Lisinopril [Zestril] 20 mg PO DAILY 01/05/18 03/09/18 Warfarin [Coumadin] 10 mg PO DAILY 03/09/18 03/09/18 Previous Rx's Medication Instructions Recorded Loratadine [Claritin] 10 mg PO DAILY tablet 11/17/17 metroNIDAZOLE [Flagyl] 500 mg PO TID #84 tablet 03/14/18 Allergies Allergy/AdvReac Type Severity Reaction Status Date / Time vancomycin Allergy Intermediate Itching Verified 01/05/18 19:34 peanut Allergy Anaphylaxis Verified 03/25/17 00:00 cephalexin [From Keflex] AdvReac Rash Verified 03/25/17 00:00 levofloxacin AdvReac Rash Verified 03/25/17 00:00 Sulfa (Sulfonamide AdvReac Rash Verified 03/25/17 00:00 Antibiotics) All systems ED: reviewed and negative except as stated. Review of Systems: As Per HPI Fever PMH - Past Medical History Medical history: Reports: asthma, atrial fibrillation, CHF, DVT, diabetes, hyperlipidemia, hypertension, pulmonary embolus, renal disease, venous stasis, other Surgical history: Reports: herniorrhaphy Psychiatric history: Reports: no psych history - Social History Smoking Status: Never smoker Alcohol use: Reports: none Drug use: Reports: none Physical Exam Vital Signs Reviewed General: Patient is alert, oriented. He appears pale, rigors. Head: atraumatic, normocephalic Eye: normal appearance, PERRL, EOMI, no scleral icterus, no conjunctival injection ENT: mucous membranes moist, normal external ear exam Neck: normal inspection, trachea midline, full ROM Chest: normal inspection, symmetric chest rise Respiratory: Good respiratory effort. Bilateral breath sounds are clear without wheezing, crackles, or rhonchi. Cardiovascular: Regular rate and rhythm. No clicks, rubs, gallops, or murmors. Normal heart sounds. Abdomen: Bowel sounds present normoactive. Abdomen is soft, nondistended, and nontender. No guarding or rebound. No organomegaly noted. Musculoskeletal: Spontaneously moving all extremities. Skin: warm, dry, intact. Neuro: GCS 15. No focal neurologic deficits observed. Psych: Patient's affect is appropriate for situation. - General Limitations: no limitations General appearance: lethargic Course Course Narrative: Patient is febrile on intake. 1000 mg Tylenol provided. Repeat temperature showed he was 102; up from his intake temp. This was approximately 3/2 hours after Tylenol. Motrin given. Patient's chest x-ray is unremarkable. CT abdomen pelvis is unremarkable. Patient's lab work shows leukocytosis in the 14 range. He is anemic consistent with his chronic anemia. He is hyperkalemic to 5.6 with acute on chronic kidney injury with creatinine 1.41. Patient is on lisinopril. He is been given 2 L of IV fluids hoping to dilute his potassium. No EKG changes. Patient has not vomited or had a bowel movement while in the ED. I discussed with the patient's . She is not comfortable bringing him home. She is concerned about sepsis as the patient has been septic multiple occasions previously. His lactate today is normal however, continues to be tachycardic and tachypneic and febrile despite IV fluids and antipyretics. I discussed the above with the admitting hospitalist, Dr. Cage, who agrees to accept the patient for continued evaluation and monitoring of his fever and hyperkalemia. Chest X-Ray 09/30/18 11:33 IMPRESSION: No evidence of acute cardiopulmonary disease. D/ / Dylan Diaz MD / Dylan Diaz MD Interpreting Provider: Dylan Diaz MD Abdomen/Pelvis CT 09/30/18 13:36 IMPRESSION: 1. Nonspecific retroperitoneal adenopathy either due to reactive or lymphoproliferative disease. D/ / Loki Leiva MD / Loki Leiva MD Interpreting Provider: Loki Leiva MD Vital Signs Temperature 101.1 F H 09/30/18 11:27 Pulse Rate 122 09/30/18 11:27 Respiratory Rate 22 09/30/18 11:27 Blood Pressure 135/103 09/30/18 11:27 O2 Sat by Pulse Oximetry 96 09/30/18 11:27 Temperature 102.5 F H 09/30/18 14:38 Pulse Rate 117 09/30/18 14:38 Respiratory Rate 20 09/30/18 14:38 Blood Pressure 118/73 09/30/18 14:38 O2 Sat by Pulse Oximetry 90 09/30/18 14:38 Oxygen Delivery Oxygen Delivery Room Air Fever - Lab Data Result diagrams: 09/30/18 11:47 09/30/18 11:47 Lab Results 09/30/18 09/30/18 09/30/18 Range/Units 11:47 11:47 11:47 WBC 14.3 H (4.3-11.1) K/mcL RBC 3.59 L (4.19-5.50) M/mcL Hgb 9.7 L (12.9-16.9) g/dL Hct 32.2 L (37.5-50.1) % MCV 89.7 (83.0-100.0) fL MCH 27.0 L (28.0-33.3) pg MCHC 30.1 L (31.6-35.5) g/dL RDW 14.8 H (11.5-14.5) % Plt Count 265 (140-400) K/mcL MPV 11.6 (9.4-12.4) fL Immature Gran % 0.4 (0-4) % Seg Neutrophils % 81.1 % Lymphocytes % 8.3 % Monocytes % 4.1 % Eosinophils % 5.7 % Basophils % 0.4 % Neutrophils # 11.6 H (1.6-8.9) K/mcL Lymphocytes # 1.2 (0.6-4.6) K/mcL Monocytes # 0.6 (0.0-1.3) K/mcL Eosinophils # 0.8 H (0.0-0.6) K/mcL Basophils # 0.1 (0.0-0.2) K/mcL PT 18.8 H (9.4-12.1) Seconds INR 1.7 APTT 36.5 H (26.0-36.0) Seconds Sodium (136-145) mEq/L Potassium (3.5-5.1) mEq/L Chloride (98-107) mEq/L Carbon Dioxide (23-29) mEq/L BUN (6-20) mg/dL Creatinine (0.70-1.30) mg/dL Est GFR ( Amer) (> 60) Est GFR (Non-Af Amer) (> 60) BUN/Creatinine Ratio (6-26) Glucose (70-105) mg/dL Calculated Osmolality (280-300) Lactic Acid (0.5-2.2) mmol/L Calcium (8.6-10.3) mg/dL Phosphorus (2.7-4.5) mg/dL Magnesium (1.6-2.6) mg/dL Total Bilirubin (0.3-1.0) mg/dL Direct Bilirubin (0.0-0.2) mg/dL Indirect Bilirubin (0.0-1.2) mg/dL AST (13-39) Units/L ALT (7-52) Units/L Alkaline Phosphatase (34-104) Units/L Troponin I (< 0.04) ng/mL B-Natriuretic Peptide 15 (Less than 100) pg/mL Serum Total Protein (6.4-8.9) g/dL Albumin (3.5-5.7) g/dL Globulin (2.4-3.5) g/dL Albumin/Globulin Ratio (1.1-2.2) Lipase (11-82) Units/L 09/30/18 09/30/18 Range/Units 11:47 11:47 WBC (4.3-11.1) K/mcL RBC (4.19-5.50) M/mcL Hgb (12.9-16.9) g/dL Hct (37.5-50.1) % MCV (83.0-100.0) fL MCH (28.0-33.3) pg MCHC (31.6-35.5) g/dL RDW (11.5-14.5) % Plt Count (140-400) K/mcL MPV (9.4-12.4) fL Immature Gran % (0-4) % Seg Neutrophils % % Lymphocytes % % Monocytes % % Eosinophils % % Basophils % % Neutrophils # (1.6-8.9) K/mcL Lymphocytes # (0.6-4.6) K/mcL Monocytes # (0.0-1.3) K/mcL Eosinophils # (0.0-0.6) K/mcL Basophils # (0.0-0.2) K/mcL PT (9.4-12.1) Seconds INR APTT (26.0-36.0) Seconds Sodium 138 (136-145) mEq/L Potassium 5.6 H (3.5-5.1) mEq/L Chloride 101 (98-107) mEq/L Carbon Dioxide 26 (23-29) mEq/L BUN 26 H (6-20) mg/dL Creatinine 1.41 H (0.70-1.30) mg/dL Est GFR ( Amer) > 60 (> 60) Est GFR (Non-Af Amer) 53 L (> 60) BUN/Creatinine Ratio 18 (6-26) Glucose 251 H (70-105) mg/dL Calculated Osmolality 299 (280-300) Lactic Acid 2.0 (0.5-2.2) mmol/L Calcium 9.3 (8.6-10.3) mg/dL Phosphorus 3.2 (2.7-4.5) mg/dL Magnesium 1.4 L (1.6-2.6) mg/dL Total Bilirubin 0.4 (0.3-1.0) mg/dL Direct Bilirubin 0.1 (0.0-0.2) mg/dL Indirect Bilirubin 0.3 (0.0-1.2) mg/dL AST 13 (13-39) Units/L ALT 15 (7-52) Units/L Alkaline Phosphatase 113 H (34-104) Units/L Troponin I < 0.03 (< 0.04) ng/mL B-Natriuretic Peptide (Less than 100) pg/mL Serum Total Protein 6.7 (6.4-8.9) g/dL Albumin 3.9 (3.5-5.7) g/dL Globulin 2.8 (2.4-3.5) g/dL Albumin/Globulin Ratio 1.4 (1.1-2.2) Lipase 34 (11-82) Units/L Attestation Statement - Attestation Attestation: I, Addison Sanderson DO, examined this patient [id number] and my medical decision-making was reviewed with Dr. Anjel Au, Resident Physician. I agree with the documented findings, disposition and treatment plan as described except to the extent set forth below. I personally supervised and was present for the bowen/critical portions of the procedures completed by the resident documented below. Please see my progress notes for details.
[2018-09-30 12:02] LABS: Basophils # 0.1 K/mcL (0.0-0.2); Basophils % 0.4 %; Eosinophils # 0.8 K/mcL (0.0-0.6); Eosinophils % 5.7 %; Hematocrit 32.2 % (37.5-50.1); Hemoglobin 9.7 g/dL (12.9-16.9); Immature Granulocytes % 0.4 % (0-4); Lymphocytes # 1.2 K/mcL (0.6-4.6); Lymphocytes % 8.3 %; Mean Corpuscular HGB Conc 30.1 g/dL (31.6-35.5); Mean Corpuscular Volume 89.7 fL (83.0-100.0); Mean Platelet Volume 11.6 fL (9.4-12.4); Monocytes # 0.6 K/mcL (0.0-1.3); Monocytes % 4.1 %; Neutrophils # 11.6 K/mcL (1.6-8.9); Platelet Count 265 K/mcL (140-400); Red Blood Count 3.59 M/mcL (4.19-5.50); Red Cell Distribution Width 14.8 % (11.5-14.5); Segmented Neutrophils % 81.1 %
[2018-09-30 12:09] LABS: INR 1.7; Prothrombin Time 18.8 Seconds (9.4-12.1)
[2018-09-30 12:12] LABS: Activated Partial Thrombo Time 36.5 Seconds (26.0-36.0)
[2018-09-30 12:24] LABS: Alanine Aminotransferase 15 Units/L (7-52); Albumin 3.9 g/dL (3.5-5.7); Albumin/Globulin Ratio 1.4 (1.1-2.2); Alkaline Phosphatase 113 Units/L (34-104); Aspartate Amino Transferase 13 Units/L (13-39); BUN/Creatinine Ratio 18 (6-26); Bilirubin,Direct 0.1 mg/dL (0.0-0.2); Bilirubin,Indirect 0.3 mg/dL (0.0-1.2); Bilirubin,Total 0.4 mg/dL (0.3-1.0); Blood Urea Nitrogen 26 mg/dL (6-20); Calcium 9.3 mg/dL (8.6-10.3); Carbon Dioxide 26 mEq/L (23-29); Chloride 101 mEq/L (98-107); Globulin 2.8 g/dL (2.4-3.5); Glucose 251 mg/dL (70-105); Lipase 34 Units/L (11-82); Magnesium 1.4 mg/dL (1.6-2.6); Osmolality,Calculated 299 (280-300); Phosphorous 3.2 mg/dL (2.7-4.5); Potassium 5.6 mEq/L (3.5-5.1); Sodium 138 mEq/L (136-145); Total Protein 6.7 g/dL (6.4-8.9); Troponin I < 0.03 ng/mL (< 0.04); eGFR For Non-African Americans 53 (> 60)
[2018-09-30] MEDS: 0.9 % Sodium Chloride 1,000 ML IVC SCH ×2 (12:42→15:03)
--- NOTE | 2018-09-30 13:01 | Emergency Department Note ---
Disposition Clinical Impression: Hyperkalemia Fever Qualifiers: Fever type: unspecified Qualified Code(s): R50.9 - Fever, unspecified Disposition: Admitted As Inpatient Condition: Fair Referrals: Jaime Paula MD [Primary Care Provider] - Forms: ED Satisfaction Letter Time of Disposition: 16:22 General Adult HPI - General Chief complaint: ED Fever Stated complaint: General illness Time Seen by Provider: 09/30/18 11:30 Source: EMS Limitations: no limitations - History of Present Illness Pain Scale: 0 - Related Data Home Medications Medication Instructions Recorded Confirmed Acetaminophen [Tylenol] 500 mg PO HS 12/02/16 03/09/18 Carvedilol Phosphate [Coreg Cr] 80 mg PO DAILY 12/02/16 03/09/18 Fluticasone/Salmeterol [Advair 1 each IH BID PRN 12/02/16 03/09/18 250-50 Diskus] Furosemide [Lasix] 40 mg PO BID 12/02/16 03/09/18 Insulin Glargine,Hum.rec.anlog 46 units SQ BID 12/02/16 03/09/18 [Lantus Solostar] Metformin HCl [Glucophage] 1,000 mg PO BID 12/02/16 03/09/18 Pentoxifylline 400 mg PO BID 12/02/16 03/09/18 Pramipexole [Mirapex] 0.25 mg PO BID 12/02/16 03/09/18 Albuterol Sulfate [Ventolin Hfa] 2 puff IH Q4H PRN 01/05/18 03/09/18 Atorvastatin [Lipitor] 40 mg PO HS 01/05/18 03/09/18 Insulin LISPRO [HumaLOG] 10 units SQ TIDWM 01/05/18 03/09/18 Lansoprazole [Prevacid] 30 mg PO DAILY 01/05/18 03/09/18 Lisinopril [Zestril] 20 mg PO DAILY 01/05/18 03/09/18 Warfarin [Coumadin] 10 mg PO DAILY 03/09/18 03/09/18 Previous Rx's Medication Instructions Recorded Loratadine [Claritin] 10 mg PO DAILY tablet 11/17/17 metroNIDAZOLE [Flagyl] 500 mg PO TID #84 tablet 03/14/18 Allergies Allergy/AdvReac Type Severity Reaction Status Date / Time vancomycin Allergy Intermediate Itching Verified 01/05/18 19:34 peanut Allergy Anaphylaxis Verified 03/25/17 00:00 cephalexin [From Keflex] AdvReac Rash Verified 03/25/17 00:00 levofloxacin AdvReac Rash Verified 03/25/17 00:00 Sulfa (Sulfonamide AdvReac Rash Verified 03/25/17 00:00 Antibiotics) Past Medical History - Past Medical History Medical history: Reports: asthma, atrial fibrillation, CHF, DVT, diabetes, hyperlipidemia, hypertension, pulmonary embolus, renal disease, venous stasis, other Surgical history: Reports: herniorrhaphy Psychiatric history: Reports: no psych history - Social History Smoking Status: Never smoker Smokeless Tobacco Status: No Alcohol use: Reports: none Drug use: Reports: none Physical Exam - General Limitations: no limitations General appearance: lethargic Course Vital Signs Temperature 101.1 F H 09/30/18 11:27 Pulse Rate 122 09/30/18 11:27 Respiratory Rate 22 09/30/18 11:27 Blood Pressure 135/103 09/30/18 11:27 O2 Sat by Pulse Oximetry 96 09/30/18 11:27 Temperature 102.5 F H 09/30/18 14:38 Pulse Rate 117 09/30/18 14:38 Respiratory Rate 20 09/30/18 14:38 Blood Pressure 118/73 09/30/18 14:38 O2 Sat by Pulse Oximetry 90 09/30/18 14:38 Oxygen Delivery Oxygen Delivery Room Air Medical Decision Making - Lab Data Result diagrams: 09/30/18 11:47 09/30/18 11:47 Lab Results 09/30/18 09/30/18 09/30/18 Range/Units 11:47 11:47 11:47 WBC 14.3 H (4.3-11.1) K/mcL RBC 3.59 L (4.19-5.50) M/mcL Hgb 9.7 L (12.9-16.9) g/dL Hct 32.2 L (37.5-50.1) % MCV 89.7 (83.0-100.0) fL MCH 27.0 L (28.0-33.3) pg MCHC 30.1 L (31.6-35.5) g/dL RDW 14.8 H (11.5-14.5) % Plt Count 265 (140-400) K/mcL MPV 11.6 (9.4-12.4) fL Immature Gran % 0.4 (0-4) % Seg Neutrophils % 81.1 % Lymphocytes % 8.3 % Monocytes % 4.1 % Eosinophils % 5.7 % Basophils % 0.4 % Neutrophils # 11.6 H (1.6-8.9) K/mcL Lymphocytes # 1.2 (0.6-4.6) K/mcL Monocytes # 0.6 (0.0-1.3) K/mcL Eosinophils # 0.8 H (0.0-0.6) K/mcL Basophils # 0.1 (0.0-0.2) K/mcL PT 18.8 H (9.4-12.1) Seconds INR 1.7 APTT 36.5 H (26.0-36.0) Seconds Sodium (136-145) mEq/L Potassium (3.5-5.1) mEq/L Chloride (98-107) mEq/L Carbon Dioxide (23-29) mEq/L BUN (6-20) mg/dL Creatinine (0.70-1.30) mg/dL Est GFR ( Amer) (> 60) Est GFR (Non-Af Amer) (> 60) BUN/Creatinine Ratio (6-26) Glucose (70-105) mg/dL Calculated Osmolality (280-300) Lactic Acid (0.5-2.2) mmol/L Calcium (8.6-10.3) mg/dL Phosphorus (2.7-4.5) mg/dL Magnesium (1.6-2.6) mg/dL Total Bilirubin (0.3-1.0) mg/dL Direct Bilirubin (0.0-0.2) mg/dL Indirect Bilirubin (0.0-1.2) mg/dL AST (13-39) Units/L ALT (7-52) Units/L Alkaline Phosphatase (34-104) Units/L Troponin I (< 0.04) ng/mL B-Natriuretic Peptide 15 (Less than 100) pg/mL Serum Total Protein (6.4-8.9) g/dL Albumin (3.5-5.7) g/dL Globulin (2.4-3.5) g/dL Albumin/Globulin Ratio (1.1-2.2) Lipase (11-82) Units/L 09/30/18 09/30/18 Range/Units 11:47 11:47 WBC (4.3-11.1) K/mcL RBC (4.19-5.50) M/mcL Hgb (12.9-16.9) g/dL Hct (37.5-50.1) % MCV (83.0-100.0) fL MCH (28.0-33.3) pg MCHC (31.6-35.5) g/dL RDW (11.5-14.5) % Plt Count (140-400) K/mcL MPV (9.4-12.4) fL Immature Gran % (0-4) % Seg Neutrophils % % Lymphocytes % % Monocytes % % Eosinophils % % Basophils % % Neutrophils # (1.6-8.9) K/mcL Lymphocytes # (0.6-4.6) K/mcL Monocytes # (0.0-1.3) K/mcL Eosinophils # (0.0-0.6) K/mcL Basophils # (0.0-0.2) K/mcL PT (9.4-12.1) Seconds INR APTT (26.0-36.0) Seconds Sodium 138 (136-145) mEq/L Potassium 5.6 H (3.5-5.1) mEq/L Chloride 101 (98-107) mEq/L Carbon Dioxide 26 (23-29) mEq/L BUN 26 H (6-20) mg/dL Creatinine 1.41 H (0.70-1.30) mg/dL Est GFR ( Amer) > 60 (> 60) Est GFR (Non-Af Amer) 53 L (> 60) BUN/Creatinine Ratio 18 (6-26) Glucose 251 H (70-105) mg/dL Calculated Osmolality 299 (280-300) Lactic Acid 2.0 (0.5-2.2) mmol/L Calcium 9.3 (8.6-10.3) mg/dL Phosphorus 3.2 (2.7-4.5) mg/dL Magnesium 1.4 L (1.6-2.6) mg/dL Total Bilirubin 0.4 (0.3-1.0) mg/dL Direct Bilirubin 0.1 (0.0-0.2) mg/dL Indirect Bilirubin 0.3 (0.0-1.2) mg/dL AST 13 (13-39) Units/L ALT 15 (7-52) Units/L Alkaline Phosphatase 113 H (34-104) Units/L Troponin I < 0.03 (< 0.04) ng/mL B-Natriuretic Peptide (Less than 100) pg/mL Serum Total Protein 6.7 (6.4-8.9) g/dL Albumin 3.9 (3.5-5.7) g/dL Globulin 2.8 (2.4-3.5) g/dL Albumin/Globulin Ratio 1.4 (1.1-2.2) Lipase 34 (11-82) Units/L Attestation Statement - Attestation Attestation: I, Addison Sanderson DO, examined this patient [id number] and my medical decision-making was reviewed with Dr. Anjel Au, Resident Physician. I agree with the documented findings, disposition and treatment plan as described except to the extent set forth below. I personally supervised and was present for the bowen/critical portions of the procedures completed by the resident documented below. Please see my progress notes for details. 52-year-old male presents emergency room by EMS for evaluation of generalized malaise fevers and right gutters. Patient had a previous infection his foot that became infected and cause sepsis. Patient otherwise is had intermittent nausea with no vomiting and diarrhea for last 3 or 4 days. He has no other specific sick contacts. Denies any falls trauma or injury. He is been taking all his medications. The wounds and his foot appear to be healed this time. Vi julian signs are stable outside of tachycardia and fever. Patient will be provided with Tylenol as well as having sepsis evaluation started this time. Antibiotic regimen for me required ammonia will be started. Patient's lungs are clear this point. Heart is regular but tachycardia. Abdomen is soft. No signs of active wound infection or cellulitis noted. Extremities otherwise normal. Feet will be evaluated after this. Patient denies any urinary symptoms. Fluids were restarted 2 L at this time. Disposition pending full workup and treatment course. Patient is otherwise not showing any acute signs of critical illness but is uncomfortable. Disposition pending. See detailed documentation the physical exam, medical intervention, medical decision-making and disposition in the resident physician's note. No critical care provider the patient's treatment course at this time. 1300 Patient found to have potassium of 5.6. Magnesium is 1.7. Will be repleted. Patient is receiving 2 L of fluid which should dilute out the potassium. He does not have any acute EKG changes at this time. Patient will be symptomatically managed as infectious source is located and then disposition is determined. 1600 Patient has unknown etiology to the fever at this point. Influenza swab still pending. Patient does still of generalized malaise and hyperkalemia noted on exam. No immediate intervention was provided secondary to the patient having no EKG changes. Because of this, the patient will be admitted for symptomatic control management. The hospitalist Dr. morrell reviewed the case. She had no other recommendations or concerns at this point. Patient will be admitted for symptomatic control management as well as observation. Patient will be monitored here in the emergency department until the admission process is completed.
[2018-09-30] MEDS ORDERED: 0.9 % Sodium Chloride 1,000 ML IVC ONE (15:02)
[2018-09-30] MEDS ORDERED: Ibuprofen 800 MG TABLET PO ONE (15:11)
[2018-09-30] MEDS ORDERED: Ondansetron 4 MG/2 ML VIAL IVP PRN (16:45)
[2018-09-30] MEDS ORDERED: Acetaminophen 325 MG TABLET PO PRN (16:45)
[2018-09-30] MEDS ORDERED: Budesonide/Formoterol 80/4.5 MDI IH PRN (16:47)
--- NOTE | 2018-09-30 17:19 | Internal Med History&Physical ---
Date of Encounter: 09/30/18 Time of Encounter: 16:48 Internal Medicine - H&P: HPI Chief complaint: Fever Admitted From: Emergency Dept History of present illness: Elmer Jones is a 52 M w hx morbid obesity, DM2, HTN, HFpEF, A-Fib and PE on AC, asthma, who p/w fever. Pt states 3-4 days ago had generalized abd pain, nausea, vomiting, and diarrhea, lasting about 2 days, and that now his is starting to get sick with similar GI illness. She does not have fevers to his knowledge. He says today he felt very cold, and upon remarking this, his who thought it was very warm thought he seemed a bit ill and made him come to the ED for further evaluation. His GI symptoms resolved 2 days ago, and only now has he started to feel febrile. Today en route to ED, he did have another episode of emesis. Says in the last few weeks his "water pill" hasn't been as effective and thus he takes an extra half tab every other day which seems to make him urinate as usual. Denies headache, vision changes, swallowing difficulty, CP, SOB, cough, dysuria, or rashes. Of note, pt hospitalized here in 02/2018 w R foot cellulitis and OM and was discharged w PICC line w several weeks levaquin IV therapy, and pt states his legs have not been red or painful or more swollen than usual recently. In the ED, pt vitals T 102, HR 120s, RR 22, SBP 135, O2 96% on RA. Skin exam unremarkable. Labs w WBC 14, Hb 9, K 5.6, Cr 1.4, lactate 2. CXR unremarkable. Rapid flu negative. Blood cultures obtained. Given 3L NS. Given dose of doxycycline 100 iv. Past medical, surgical, social, and family histories reviewed and updated as below. Past Med Surg Social Fam HX - Past Medical History Medical history: asthma, atrial fibrillation, CHF, DVT, diabetes, hyperlipidemia, hypertension, pulmonary embolus, renal disease, venous stasis, other Additional medical history: Charcot's foot, Venous insufficiency, morbid obesity Psychiatric history: no psych history - Past Surgical History Surgical History: herniorrhaphy Additional surgical history: I&D right foot - Social History Smoking Status: Never smoker Smokeless Tobacco Status: No Alcohol use: none Drug use: none - Family History Father Family Member Ethnicity: Non- Living Status: Still Living Hx Family Cardiac Disorders: Yes Hx Family Respiratory Disorders: No Hx Family Cancer: No Hx Family GI Disorders: No Hx Family Endocrine Disorder: No Hx Family Neuromuscular Disorders: No Hx Family Neurologic Disorders: No Hx Family HEENT Disorders: No Hx Family Autoimmune Disorders: No Mother Adopted: No Family Member Ethnicity: Non- Living Status: Hx Family Cardiac Disorders: Yes Hx Family Respiratory Disorders: No Hx Family Cancer: No Hx Family GI Disorders: No Hx Family Endocrine Disorder: Yes (DM) Hx Family Neuromuscular Disorders: No Hx Family Neurologic Disorders: Yes (Alzheimer's disease) Hx Family HEENT Disorders: No Hx Family Autoimmune Disorders: No Brother Family Member Ethnicity: Non- Living Status: Still Living Hx Family Cardiac Disorders: Yes Hx Family Respiratory Disorders: Yes Hx Family Cancer: No Hx Family GI Disorders: No Hx Family Endocrine Disorder: No Hx Family Neuromuscular Disorders: No Hx Family Neurologic Disorders: No Hx Family HEENT Disorders: No Hx Family Autoimmune Disorders: No Internal Medicine - H&P: Meds Acetaminophen [Tylenol] 500 mg PO HS 12/02/16 [History] Carvedilol Phosphate [Coreg Cr] 80 mg PO DAILY 12/02/16 [History] Fluticasone/Salmeterol [Advair 250-50 Diskus] 1 each IH BID PRN 12/02/16 [Histo ry] Furosemide [Lasix] 40 mg PO BID 12/02/16 [History] Insulin Glargine,Hum.rec.anlog [Lantus Solostar] 46 units SQ BID 12/02/16 [History] Metformin HCl [Glucophage] 1,000 mg PO BID 12/02/16 [History] Pentoxifylline 400 mg PO BID 12/02/16 [History] Pramipexole [Mirapex] 0.25 mg PO BID 12/02/16 [History] Loratadine [Claritin] 10 mg PO DAILY tablet 11/17/17 [Rx] Albuterol Sulfate [Ventolin Hfa] 2 puff IH Q4H PRN 01/05/18 [History] Atorvastatin [Lipitor] 40 mg PO HS 01/05/18 [History] Insulin LISPRO [HumaLOG] 10 units SQ TIDWM 01/05/18 [History] Lansoprazole [Prevacid] 30 mg PO DAILY 01/05/18 [History] Lisinopril [Zestril] 20 mg PO DAILY 01/05/18 [History] Warfarin [Coumadin] 10 mg PO DAILY 03/09/18 [History] metroNIDAZOLE [Flagyl] 500 mg PO TID #84 tablet 03/14/18 [Rx] Allergy/AdvReac Type Severity Reaction Status Date / Time vancomycin Allergy Intermediate Itching Verified 01/05/18 19:34 peanut Allergy Anaphylaxis Verified 03/25/17 00:00 cephalexin [From Keflex] AdvReac Rash Verified 03/25/17 00:00 levofloxacin AdvReac Rash Verified 03/25/17 00:00 Sulfa (Sulfonamide AdvReac Rash Verified 03/25/17 00:00 Antibiotics) All Systems PM: A 10-system review of systems was performed and is negative for pertinent findings except as documented above in the HPI. - Constitutional Vitals: Temp Pulse Resp BP Pulse Ox 102.5 F H 117 20 118/73 90 09/30/18 14:38 09/30/18 14:38 09/30/18 14:38 09/30/18 14:38 09/30/18 14:38 Exam: General: NAD, good eye contact, relatively well appearing, pale, obese Head: Atraumatic, normocephalic. Face symmetric Eyes: EOMI, sclerae anicteric ENT: Mucous membranes dry. Normal oral mucosa and edentulous. Trachea midline. Unable to appreciate cervical lymphadenopathy Thoracic: No visible chest wall deformities. Distant but normal breath sounds b/l, no wheezing or crackles Cardio: Normal S1 and S2, regular rhythm, tachycardic Abdomen: Firm but not rigid, nontender, nondistended. Bowel sounds present. No rebound. Extremities: Warm, well perfused. Does have lymphedema b/l feet and edema b/l legs currently in wraps Skin: Small R foot plantar wound almost fully healed and not erythematous, does have some vitiligo on arms Neuro: Awake, fully oriented. Good memory, concentration, attention. Speech fluent. CN II-XII grossly intact. Strength 5/5 in b/l UE and LE Internal Med - H&P Results - Labs CBC & Chem 7: 09/30/18 11:47 09/30/18 11:47 Labs: Short CBC 09/30/18 Range/Units 11:47 WBC 14.3 H (4.3-11.1) K/mcL Hgb 9.7 L (12.9-16.9) g/dL Hct 32.2 L (37.5-50.1) % Plt Count 265 (140-400) K/mcL Neutrophils # 11.6 H (1.6-8.9) K/mcL BMP 09/30/18 11:47 Sodium 138 Potassium 5.6 H Chloride 101 Carbon Dioxide 26 BUN 26 H Creatinine 1.41 H Glucose 251 H Calcium 9.3 Cardiac Enzymes 09/30/18 Range/Units 11:47 Troponin I < 0.03 (< 0.04) ng/mL Liver Function 09/30/18 Range/Units 11:47 Total Bilirubin 0.4 (0.3-1.0) mg/dL Direct Bilirubin 0.1 (0.0-0.2) mg/dL AST 13 (13-39) Units/L ALT 15 (7-52) Units/L Alkaline Phosphatase 113 H (34-104) Units/L Albumin 3.9 (3.5-5.7) g/dL - Impressions ITS Impressions Chest X-Ray 09/30/18 11:33 IMPRESSION: No evidence of acute cardiopulmonary disease. D/ / Dylan Diaz MD / Dylan Diaz MD Interpreting Provider: Dylan Diaz MD Abdomen/Pelvis CT 09/30/18 13:36 IMPRESSION: 1. Nonspecific retroperitoneal adenopathy either due to reactive or lymphoproliferative disease. D/ / Loki Leiva MD / Loki Leiva MD Interpreting Provider: Loki Leiva MD - Summary of Assessment and Plan Summary of Assessment and Plan: Elmer Jones is a 52 M w hx morbid obesity, DM2, HTN, HFpEF, A-Fib and PE on AC, asthma, who p/w fever, SIRS 4/4, concerning for sepsis of unknown source. Sepsis: SIRS 4/4, unknown primary source, seemingly not skin (exam normal) or pulm (CXR and flu swab wnl), awaiting urine, did have GI upset and N/V/D and could have subsequent GI translocation. Lactate wnl. Given doxycycline in ED. - BCx x2 pending - UA - fluid bolus prn MAP<65, s/p NS 3L in ED - broaden to empiric zosyn as doxycycline has poor gram negative coverage and no PCN allergy listed despite numerous others KELSY on CKD3a: baseline Cr ~1.1-1.2, 2/2 hypovolemia, fluids as above, renally dose and avoid toxins, monitor Hyperkalemia: suspect 2/2 KELSY above, fluids as above and recheck Hypomagnesemia: replace and monitor Chronic normocytic anemia: baseline ~9-10 HFpEF: holding home lasix 40 A-Fib: AC on warfarin, rate on coreg HTN: holding coreg cr 80 daily, holding lisinopril 20, DM2: lantus 40 bid (home dose 46 bid) plus SSI, holding metformin Asthma: home inhalers GERD: holding home PPI, use H2 demian instead RLS: home mirapex Morbid obesity: BMI 52 PPx: therapeutic warfarin FEN: renal ADA, no MIVF Lines: PIV Consults: Code: Full Dispo: patient requires inpatient eval and management at this time. Anticipate 2-3 days. Will be homegoing
[2018-09-30] MEDS ORDERED: Piperacillin/Tazobactam 3.375 GM in Water for inj. (sterile) 20 ML 20 ML IVP ONE (17:41)
[2018-09-30 18:43] LABS: BUN/Creatinine Ratio 18 (6-26); Blood Urea Nitrogen 26 mg/dL (6-20); Calcium 8.6 mg/dL (8.6-10.3); Carbon Dioxide 25 mEq/L (23-29); Chloride 106 mEq/L (98-107); Glucose 211 mg/dL (70-105); Osmolality,Calculated 301 (280-300); Potassium 5.1 mEq/L (3.5-5.1); Sodium 140 mEq/L (136-145); eGFR For Non-African Americans 52 (> 60)
[2018-09-30] MEDS ORDERED: Piperacillin/Tazobactam 3.375 GM in 0.9 % Sodium Chloride Mini Bag 100 ML IVPB SCH (19:00)
[2018-09-30] MEDS ORDERED: 0.9 % Sodium Chloride 1,000 ML IVC SCH (21:00)
[2018-09-30] MEDS ORDERED: *HR* Warfarin 10 MG TABLET PO SCH (21:00)
[2018-09-30] MEDS: Insulin DETEMIR 100 UNIT/ML X5UNITS SQ SCH (21:38)
[2018-10-01 03:56] LABS: Hemoglobin 8.2 g/dL (12.9-16.9); Mean Corpuscular HGB Conc 29.3 g/dL (31.6-35.5); Mean Corpuscular Hemoglobin 26.3 pg (28.0-33.3); Mean Corpuscular Volume 89.7 fL (83.0-100.0); Mean Platelet Volume 11.9 fL (9.4-12.4); Platelet Count 221 K/mcL (140-400); Red Blood Count 3.12 M/mcL (4.19-5.50); Red Cell Distribution Width 15.1 % (11.5-14.5)
[2018-10-01 04:16] LABS: Calcium 8.1 mg/dL (8.6-10.3); Magnesium 1.6 mg/dL (1.6-2.6); Potassium 5.1 mEq/L (3.5-5.1)
[2018-10-01] MEDS: Piperacillin/Tazobactam 3.375 GM in 0.9 % Sodium Chloride Mini Bag 100 ML IVPB SCH ×3 (05:29→22:14)
[2018-10-01] MEDS ORDERED: *HR* Enoxaparin 30 MG/0.3 ML SYRINGE SQ SCH (06:00)
[2018-10-01] MEDS: Insulin DETEMIR 100 UNIT/ML X5UNITS SQ SCH ×2 (09:17→20:15)
[2018-10-01] MEDS: Loratadine 10 MG TABLET PO SCH (09:19)
[2018-10-01] MEDS ORDERED: D5% in Water 1,000 ML IVC PRN (09:28)
[2018-10-01] MEDS ORDERED: Dextrose Gel 15 GM/37.5 ML TUBE PO PRN ×2 (09:28)
[2018-10-01] MEDS ORDERED: *HR* Dextrose 50 % in Water (Syg) 50 ML SYRINGE IVP PRN (09:28)
--- NOTE | 2018-10-01 10:17 | Electrocardiograph Report ---
[address] [place], [place] [address] Test Date: 2018-09-30 Pat Name: Elmer Jones Department: [id number] Room: 3A21 Gender: M It Audit Manager: : 1965 Requested By: Addison Sanderson Order Number: [id number] Reading MD: Yg Jaime Measurements Intervals [place] Rate: 120 P: 71 MT: 176 QRS: 110 QRSD: 78 T: 37 QT: 285 QTc: 403 Interpretive Statements Sinus tachycardia Probable left atrial enlargement Left posterior fascicular block Anteroseptal infarct, age indeterminate Electronically Signed On 10-01-2018 10:15:37 EDT by Yg Jaime
[2018-10-01] MEDS: Insulin LISPRO 300 UNITS/3 ML VIAL SQ SCH ×2 (12:56→17:21)
[2018-10-01 14:28] LABS: Prothrombin Time 22.3 Seconds (9.4-12.1)
--- NOTE | 2018-10-01 14:41 | Internal Med Progress Note ---
Hospitalist Progress Note - Encounter Date of Encounter: 10/01/18 Time of Encounter: 14:04 - Subjective Interval History: Pt states he had additional chills overnight but otherwise denies fever, sweats, N/V/D, abd pain, SOB, CP, or rash. Denies acute needs. - Exam Vitals: Temp Pulse Resp BP Pulse Ox 99.0 F 101 16 119/72 96 10/01/18 12:08 10/01/18 12:08 10/01/18 12:08 10/01/18 12:08 10/01/18 12:08 Exam: General: NAD, good eye contact, well appearing, obese Thoracic: Distant but normal breath sounds b/l, no wheezing or crackles Cardio: Normal S1 and S2, regular rhythm and rate Abdomen: Firm but not rigid, nontender, nondistended Extremities: Warm, well perfused. Does have lymphedema b/l feet and edema b/l legs Skin: Small R foot plantar wound almost fully healed and not erythematous, does have some vitiligo on arms Neuro: Awake, fully oriented. Speech fluent. - Summary of Assessment and Plan Summary of Assessment and Plan: Elmer Jones is a 52 M w hx morbid obesity, DM2, HTN, HFpEF, A-Fib and PE on AC, asthma, who p/w fever, SIRS 4/4, concerning for sepsis of unknown source. Sepsis: improving, suspect GI source - BCx x2 pending - still need UA - continue empiric zosyn, consider de-escalation per cultures if growth or empirically to augmentin tomorrow due to clinical improvement KELSY on CKD3a: baseline Cr ~1.1-1.2, 2/2 hypovolemia, encourage PO today, renally dose and avoid toxins, monitor Hyperkalemia: suspect 2/2 KELSY above, improved some w fluids, recheck in AM Chronic normocytic anemia: baseline ~9, maintain >7 HFpEF: holding home lasix 40 A-Fib: AC on warfarin, rate on coreg HTN: resume coreg 12.5 bid (home dose is coreg cr 80 daily), holding lisinopril 20 DM2: lantus 40 bid (home dose 46 bid) plus SSI, holding metformin Asthma: home inhalers GERD: holding home PPI, use H2 demian instead RLS: home mirapex Morbid obesity: BMI 52 PPx: therapeutic warfarin FEN: renal ADA, no MIVF Lines: PIV Consults: Code: Full Dispo: patient requires inpatient eval and management at this time. Anticipate 1-2 days. Will be homegoing Internal Medicine: Result - Labs CBC & Chem 7: 10/01/18 03:10 10/01/18 03:10 Labs: Short CBC 10/01/18 Range/Units 03:10 WBC 16.5 H (4.3-11.1) K/mcL Hgb 8.2 L D (12.9-16.9) g/dL Hct 28.0 L (37.5-50.1) % Plt Count 221 (140-400) K/mcL BMP 09/30/18 10/01/18 18:15 03:10 Sodium 140 141 Potassium 5.1 5.1 Chloride 106 106 Carbon Dioxide 25 27 BUN 26 H 28 H Creatinine 1.44 H 1.65 H Glucose 211 H 234 H Calcium 8.6 8.1 L - ABG Interpretation ABG results: PT/INR, D-dimer PT 18.8 Seconds (9.4-12.1) H 09/30/18 11:47 - Impressions Impressions Abdomen/Pelvis CT 09/30/18 13:36 IMPRESSION: 1. Nonspecific retroperitoneal adenopathy either due to reactive or lymphoproliferative disease. D/ / Loki Leiva MD / Loki Leiva MD Interpreting Provider: Loki Leiva MD Consult Discharge Plan - Plan Referrals: Jaime Paula MD [Primary Care Provider] -
[2018-10-01 15:48] LABS: Bilirubin,Urine Negative (Negative); Blood,Urine Negative (Negative); Clarity,Urine Clear (Clear); Color,Urine Yellow (Yellow); Glucose,Urine (UA) 100 mg/dL (Normal); Ketones,Urine Negative (Negative); Leukocyte Esterase,Urine Negative (Negative); Nitrite,Urine Negative (Negative); Protein,Urine 100 mg/dL (Neg-Trace); Specific Gravity,Urine 1.015 (1.010-1.025); Urobilinogen,Urine Normal (Normal)
[2018-10-01 16:33] LABS: RBC,Urine 0-3 per hpf (0-3); Squamous Epithelial Cell,Urine Few per lpf (None-Few)
[2018-10-01] MEDS ORDERED: *HR* Warfarin 10 MG TABLET PO ONE (18:00)
[2018-10-01] MEDS ORDERED: Warfarin perPT PO PRN (18:00)
[2018-10-01] MEDS ORDERED: Insulin LISPRO 300 UNITS/3 ML VIAL SQ SCH (21:00)
[2018-10-02 05:51] LABS: Hematocrit 25.8 % (37.5-50.1); Hemoglobin 7.8 g/dL (12.9-16.9); Mean Corpuscular HGB Conc 30.2 g/dL (31.6-35.5); Mean Corpuscular Hemoglobin 26.8 pg (28.0-33.3); Mean Corpuscular Volume 88.7 fL (83.0-100.0); Mean Platelet Volume 11.6 fL (9.4-12.4); Platelet Count 195 K/mcL (140-400); Red Blood Count 2.91 M/mcL (4.19-5.50); Red Cell Distribution Width 15.2 % (11.5-14.5)
[2018-10-02] MEDS: Piperacillin/Tazobactam 3.375 GM in 0.9 % Sodium Chloride Mini Bag 100 ML IVPB SCH (05:59)
[2018-10-02 06:00] LABS: INR 2.1; Prothrombin Time 23.7 Seconds (9.4-12.1)
[2018-10-02 06:12] LABS: Calcium 8.5 mg/dL (8.6-10.3); Magnesium 1.9 mg/dL (1.6-2.6); Potassium 4.5 mEq/L (3.5-5.1)
[2018-10-02] MEDS: Insulin LISPRO 300 UNITS/3 ML VIAL SQ SCH ×2 (07:48→12:57)
[2018-10-02] MEDS: Loratadine 10 MG TABLET PO SCH (07:48)
[2018-10-02] MEDS: Insulin DETEMIR 100 UNIT/ML X5UNITS SQ SCH (07:51)
--- NOTE | 2018-10-02 09:41 | Electrocardiograph Report ---
[address] [address] Test Date: 2018-09-30 Pat Name: Elmer Jones Department: [id number] Room: 3A21 Gender: M Field Specialist: : 1965 Requested By: Addison Sanderson Order Number: [id number] Reading MD: Todd Solis Measurements Intervals [place] Rate: 106 P: 48 VT: 165 QRS: 84 QRSD: 88 T: 30 QT: 316 QTc: 420 Interpretive Statements Sinus tachycardia Electronically Signed On 10-02-2018 9:39:58 EDT by Todd Solis
--- NOTE | 2018-10-02 11:20 | Electrocardiograph Report ---
[facility] Test Date: 2018-09-30 Pat Name: Elmer Jones Department: [id number] Room: 3A21 Gender: M Conservation Scientist: : 1965 Requested By: Addison Sanderson Order Number: [id number] Reading MD: Sage Hawthorne Measurements Intervals [place] Rate: 115 P: 63 RI: 176 QRS: 90 QRSD: 81 T: 38 QT: 290 QTc: 401 Interpretive Statements Sinus tachycardia Anteroseptal infarct, age indeterminate Electronically Signed On 10-02-2018 11:18:56 EDT by Sage Hawthorne
--- NOTE | 2018-10-02 12:58 | Discharge Summary ---
- NOTES TO OUTPATIENT PROVIDER Notes to Outpatient Provider: Presented w fever and sepsis, unknown source, discharging on Augmentin. Creatinine slightly above baseline, 1.6 at discharge, holding lisinopril and halved metformin Orders not resulted at time of discharge: Pending orders 09/30/18 12:07 Culture,Blood [BC] Stat Date of Encounter: 10/02/18 Time of Encounter: 12:54 Hospital course: Dear Doctors, I recently had the opportunity to care for this patient during their recent hospital stay at [facility]. Elmer Jones is a 52 M w hx morbid obesity, DM2, HTN, HFpEF, A-Fib and PE on AC, CKD3a, asthma, who presented at time of admission with recurrent fevers. He reported that 2-3 days prior to fevers he had some nausea, abd pain, and diarrhea, all of which resolved. In the ED, pt vitals T 102, HR 120s, RR 22, SBP 135, O2 96% on RA. Skin exam unremarkable. Labs w WBC 14, Hb 9, K 5.6, Cr 1.4, lactate 2. CXR unremarkable. Rapid flu negative. Blood cultures obtained. Given 3L NS. A CT a/p showed only nonspecific retroperitoneal lymphadenopathy. Patient admitted for sepsis. In the hospital, patient was started empirically on zosyn due to presumed GI source (possible translocation of gut bacteria in setting of recent viral GE symptoms). Cultures no growth at 48 hours. Pt quickly improved to his baseline and on day of discharge was transitioned to Augmentin PO and will follow up PCP. Dx: sepsis Pertinent tests/consults: CT a/p Follow up: PCP 1 week Tests pending: blood cultures ngtd day 06/19 Med changes: - new augmentin 875 bid, last dose 10/06 - stop lisinopril until outpatient labs - decrease metformin from 1000 bid to 500 bid Mental status: awake, fully oriented Code status: [employer] spent on discharge: 35 minutes It has been my pleasure participating in this patient's care. Please contact me with any questions or concerns regarding their hospital stay. Sincerely, Duran Wallace MD - Discharge Medications Prescriptions: New Amoxicillin/Clavulanate [Augmentin] 875 mg PO BIDWM #9 tablet metFORMIN [Glucophage] 500 mg PO BIDWM #60 tablet Continued Acetaminophen [Tylenol] 500 mg PO HS Pramipexole [Mirapex] 0.25 mg PO BID Pentoxifylline 400 mg PO BID Furosemide [Lasix] 40 mg PO DAILY Carvedilol Phosphate [Coreg Cr] 80 mg PO QAM Insulin Glargine,Hum.rec.anlog [Lantus Solostar] 46 units SQ BID Insulin LISPRO [HumaLOG] 10 - 12 units SQ TIDWM Albuterol Sulfate [Ventolin Hfa] 2 puff IH Q4H PRN PRN Reason: Dyspnea Lansoprazole [Prevacid] 30 mg PO QAM Atorvastatin [Lipitor] 40 mg PO HS Warfarin [Coumadin] 10 mg PO MOFR Warfarin Sodium 8 mg PO SUTUWETHSA Discontinued Metformin HCl [Glucophage] 1,000 mg PO BID Lisinopril [Zestril] 20 mg PO QPM Home Medications: Acetaminophen [Tylenol] 500 mg PO HS 12/02/16 [History] Carvedilol Phosphate [Coreg Cr] 80 mg PO QAM 12/02/16 [History] Furosemide [Lasix] 40 mg PO DAILY 12/02/16 [History] Insulin Glargine,Hum.rec.anlog [Lantus Solostar] 46 units SQ BID 12/02/16 [History] Pentoxifylline 400 mg PO BID 12/02/16 [History] Pramipexole [Mirapex] 0.25 mg PO BID 12/02/16 [History] Albuterol Sulfate [Ventolin Hfa] 2 puff IH Q4H PRN 01/05/18 [History] Atorvastatin [Lipitor] 40 mg PO HS 01/05/18 [History] Insulin LISPRO [HumaLOG] 10 - 12 units SQ TIDWM 01/05/18 [History] Lansoprazole [Prevacid] 30 mg PO QAM 01/05/18 [History] Warfarin [Coumadin] 10 mg PO MOFR 03/09/18 [History] Warfarin Sodium 8 mg PO SUTUWETHSA 10/01/18 [History] Amoxicillin/Clavulanate [Augmentin] 875 mg PO BIDWM #9 tablet 10/02/18 [Rx] metFORMIN [Glucophage] 500 mg PO BIDWM #60 tablet 10/02/18 [Rx] Allergies/Adverse Reactions: Allergy/AdvReac Type Severity Reaction Status Date / Time vancomycin Allergy Intermediate Itching Verified 10/01/18 11:33 peanut Allergy Anaphylaxis Verified 10/01/18 11:33 cephalexin [From Keflex] AdvReac Rash Verified 10/01/18 11:33 levofloxacin AdvReac Rash Verified 10/01/18 11:33 Sulfa (Sulfonamide AdvReac Rash Verified 10/01/18 11:33 Antibiotics) Date of admission: 09/30/18 17:33 Primary care physician: Jaime Paula MD - Constitutional Vitals: Temp Pulse Resp BP Pulse Ox 98.2 F 83 16 110/60 97 10/02/18 11:19 10/02/18 11:19 10/02/18 11:19 10/02/18 11:19 10/02/18 11:19 Exam: General: NAD, good eye contact, well appearing, obese Thoracic: Distant but normal breath sounds b/l, no wheezing or crackles Cardio: Normal S1 and S2, regular rhythm and rate Abdomen: Firm but not rigid, nontender Extremities: Warm, well perfused. Does have lymphedema b/l feet and edema b/l legs Skin: Small R foot plantar wound almost fully healed and not erythematous, does have some vitiligo on arms Neuro: Awake, fully oriented. Speech fluent. - Patient Status Disposition: Home, Self-Care Condition: Fair Functional capacity at discharge: independent ambulation Overall status at discharge: patient is back to baseline - Discharge Instructions Follow Up With: Jaime Paula MD [Primary Care Provider] - - Diet and Activity Activity: resume usual activities as tolerated Diet: diabetic diet, low salt diet
[2018-10-02 15:09] VITALS: BP 126/55
[2018-10-02] MEDS ORDERED: *HR* Warfarin 4 MG TABLET PO ONE (18:00)
== END 2018-10-02 17:30 | disposition home or self-care (01) | DRG 872 ==
LOC: 3ANU 11:25 → EMEROOARM 11:25 → SUATTDRO 17:33 → OBSVTOIN 17:33 → 3ANU 19:50
PROVIDERS: ADMIT Internal Medicine; ATTEND Internal Medicine

== ENCOUNTER 2018-11-03 05:06 | Inpatient (IN) ==
--- NOTE | 2018-11-03 05:14 | Emergency Department Note ---
Disposition Clinical Impression: Cellulitis of left thigh Sepsis Qualifiers: Sepsis type: sepsis due to unspecified organism Qualified Code(s): A41.9 - Sepsis, unspecified organism Disposition: Still a Patient Condition: Good Referrals: Jaime Paula MD [Primary Care Provider] - Forms: ED Satisfaction Letter Time of Disposition: 06:49 General Adult HPI - General Stated complaint: fever Time Seen by Provider: 11/03/18 05:08 Nursing Notes Reviewed: Yes Vital Signs Reviewed: Yes - History of Present Illness HPI Narrative: 52-year-old male presents emergency Department with sudden onset of chills, fever, left thigh discomfort starting at midnight. Patient reports last time he felt like this, he had sepsis. Patient denies any cough, sputum production, abdominal pain, nausea, vomiting. He does report that he has had some congestion of the sinuses. Patient denies any shortness of breath, chest pain, pressure, tightness. - Related Data Home Medications Medication Instructions Recorded Confirmed Acetaminophen [Tylenol] 500 mg PO HS 12/02/16 11/03/18 Carvedilol Phosphate [Coreg Cr] 80 mg PO QAM 12/02/16 11/03/18 Furosemide [Lasix] 40 mg PO DAILY 12/02/16 11/03/18 Insulin Glargine,Hum.rec.anlog 46 units SQ BID 12/02/16 11/03/18 [Lantus Solostar] Pentoxifylline 400 mg PO BID 12/02/16 11/03/18 Pramipexole [Mirapex] 0.25 mg PO BID 12/02/16 11/03/18 Albuterol Sulfate [Ventolin Hfa] 2 puff IH Q4H PRN 01/05/18 11/03/18 Atorvastatin [Lipitor] 40 mg PO HS 01/05/18 11/03/18 Insulin LISPRO [HumaLOG] 10 - 12 units SQ TIDWM 01/05/18 11/03/18 Lansoprazole [Prevacid] 30 mg PO QAM 01/05/18 11/03/18 Warfarin Sodium 4 mg PO AD 10/01/18 11/03/18 Cholecalciferol (D-3) [Vitamin D] 1,000 unit PO DAILY 10/25/18 11/03/18 Lisinopril [Zestril] 10 mg PO DAILY 10/25/18 11/03/18 amLODIPine [Norvasc] 5 mg PO DAILY 10/25/18 11/03/18 Previous Rx's Medication Instructions Recorded metFORMIN [Glucophage] 500 mg PO BIDWM #60 tablet 10/02/18 Allergies Allergy/AdvReac Type Severity Reaction Status Date / Time vancomycin Allergy Intermediate Itching Verified 10/25/18 11:32 latex Allergy Rash Verified 10/25/18 11:32 peanut Allergy Anaphylaxis Verified 10/25/18 11:32 tree nut Allergy Anaphylaxis Verified 10/25/18 11:32 cephalexin [From Keflex] AdvReac Rash Verified 10/25/18 11:32 levofloxacin AdvReac Rash Verified 10/25/18 11:32 Sulfa (Sulfonamide AdvReac Rash Verified 10/25/18 11:32 Antibiotics) All systems ED: reviewed and negative except as stated. Review of Systems: As Per HPI Constitutional: Reports: fever, chills Cardiovascular: Denies: chest pain Respiratory: Denies: cough, dyspnea Gastrointestinal: Denies: abdominal pain, nausea, vomiting, melena, hematochezia Genitourinary: Denies: urgency, dysuria, frequency Musculoskeletal: Denies: back pain Integumentary: Reports: rash Past Medical History - Past Medical History Attestation: Yes The following information was validated with the patient. Medical history: Reports: asthma, atrial fibrillation, CHF, DVT, diabetes, hyperlipidemia, hypertension, pulmonary embolus, renal disease, venous stasis, other Surgical history: Reports: herniorrhaphy Psychiatric history: Reports: no psych history - Social History Smoking Status: Never smoker Smokeless Tobacco Status: No Alcohol use: Reports: none Drug use: Reports: none Physical Exam - General Limitations: no limitations General appearance: alert, obese - Head Head exam: normocephalic - Eye Eye exam: Present: EOMI. Absent: scleral icterus - ENT ENT exam: mucous membranes moist - Neck Neck exam: Present: trachea midline - Chest Chest inspection: Present: symmetric chest wall rise - Respiratory Respiratory exam: Present: normal lung sounds bilaterally. Absent: respiratory distress, accessory muscle use - Cardiovascular Cardiovascular exam: Present: normal rhythm, tachycardia - Abdominal Exam Abdominal exam: Present: soft, Non-Tender. Absent: distention, guarding, rebound, rigidity - Male exam: Present: normal testicular lie. Absent: erythema, testicular tenderness, scrotal swelling - Extremities Exam Extremities exam: Present: other (Patient has erythema and edema, warmth, pitting, and induration of the left medial thigh) - Back Exam Back exam: Present: full ROM - Neurological Exam Neurological exam: Present: alert, oriented X3 - Psychiatric Psychiatric exam: Present: normal affect, normal mood - Skin Skin exam: Present: warm, dry, intact, normal color. Absent: rash Course Vital Signs Temperature 101 F H 11/03/18 05:08 Pulse Rate 110 11/03/18 05:08 Respiratory Rate 18 11/03/18 05:08 Blood Pressure 151/89 11/03/18 05:08 O2 Sat by Pulse Oximetry 100 11/03/18 05:08 Temperature 101 F H 11/03/18 05:08 Pulse Rate 111 11/03/18 06:26 Respiratory Rate 18 11/03/18 06:26 Blood Pressure 138/81 11/03/18 06:26 O2 Sat by Pulse Oximetry 100 11/03/18 06:26 Oxygen Delivery Oxygen Delivery Room Air Medical Decision Making - MDM Narrative Medical decision making narrative: 52-year-old male presents emergency department with concern for fever, chills, left lower extremity redness and swelling is concerning for cellulitis. Patient at high risk for deterioration secondary to infection as patient is a diabetic. Obtained an ECG, did not reveal any evidence of any ischemic ST changes. Patient does have a mild leukocytosis. Patient is anemic, but the hemoglobin for him has been lower in the past. We started patient on clindamycin and Zosyn initially as patient is allergic to vancomycin. Patient was given 1 L of normal saline. Lactic acid was not elevated. We did obtain blood cultures prior to administration of Antibiotics. Chest x-ray did not reveal any acute cardiopulmonary abnormality. Patient is mildly elevated creatinine of 1.39. This has been higher in the past. Patient still awaiting CT scan of the left thigh at time of shift end. Patient care to be transferred over to the day attending, Dr. Sanderson. Patient has had no clinical deterioration throughout his stay. Patient not meeting criteria for severe sepsis at this time. We will not administer 30 mL/kg bolus. - Lab Data Result diagrams: 11/03/18 05:44 11/03/18 05:44 Lab Results 11/03/18 11/03/18 11/03/18 Range/Units 05:44 05:44 05:44 WBC 13.8 H (4.3-11.1) K/mcL RBC 3.36 L (4.19-5.50) M/mcL Hgb 8.7 L (12.9-16.9) g/dL Hct 29.8 L (37.5-50.1) % MCV 88.7 (83.0-100.0) fL MCH 25.9 L (28.0-33.3) pg MCHC 29.2 L (31.6-35.5) g/dL RDW 15.0 H (11.5-14.5) % Plt Count 264 (140-400) K/mcL MPV 11.1 (9.4-12.4) fL Immature Gran % 0.4 (0-4) % Seg Neutrophils % 80.4 % Lymphocytes % 8.5 % Monocytes % 5.7 % Eosinophils % 4.9 % Basophils % 0.1 % Neutrophils # 11.1 H (1.6-8.9) K/mcL Lymphocytes # 1.2 (0.6-4.6) K/mcL Monocytes # 0.8 (0.0-1.3) K/mcL Eosinophils # 0.7 H (0.0-0.6) K/mcL Basophils # 0.0 (0.0-0.2) K/mcL Sodium 141 (136-145) mEq/L Potassium 5.0 (3.5-5.1) mEq/L Chloride 104 (98-107) mEq/L Carbon Dioxide 29 (23-29) mEq/L BUN 20 (6-20) mg/dL Creatinine 1.39 H (0.70-1.30) mg/dL Est GFR ( Amer) > 60 (> 60) Est GFR (Non-Af Amer) 54 L (> 60) BUN/Creatinine Ratio 14 (6-26) Glucose 254 H (70-105) mg/dL Calculated Osmolality 303 H (280-300) Lactic Acid 1.7 (0.5-2.2) mmol/L Calcium 8.5 L (8.6-10.3) mg/dL Total Bilirubin 0.3 (0.3-1.0) mg/dL AST 11 L (13-39) Units/L ALT 11 (7-52) Units/L Alkaline Phosphatase 96 (34-104) Units/L Troponin I < 0.03 (< 0.04) ng/mL Serum Total Protein 6.5 (6.4-8.9) g/dL Albumin 3.5 (3.5-5.7) g/dL Globulin 3.0 (2.4-3.5) g/dL Albumin/Globulin Ratio 1.2 (1.1-2.2) Lipase 46 (11-82) Units/L - EKG Data EKG #1 EKG attestation: Yes I reviewed and interpreted this EKG. EKG results narrative: 5:29 Heart rate 110 bpm, [place] interval 192 ms, QRS duration 92 ms, QT 390 ms, right axis deviation. Sinus tachycardia with no ischemic ST changes.
--- NOTE | 2018-11-03 05:34 | Emergency Department Note ---
Disposition Clinical Impression: Cellulitis of left thigh Sepsis Qualifiers: Sepsis type: sepsis due to unspecified organism Qualified Code(s): A41.9 - Sepsis, unspecified organism Disposition: Still a Patient Condition: Fair Referrals: Jaime Paula MD [Primary Care Provider] - Forms: ED Satisfaction Letter Time of Disposition: 06:52 General Adult HPI - General Chief complaint: ED Fever Stated complaint: fever Time Seen by Provider: 11/03/18 05:08 Source: patient, EMS Limitations: no limitations Nursing Notes Reviewed: Yes Vital Signs Reviewed: Yes - History of Present Illness Pain Scale: 0 - Related Data Home Medications Medication Instructions Recorded Confirmed Acetaminophen [Tylenol] 500 mg PO HS 12/02/16 11/03/18 Carvedilol Phosphate [Coreg Cr] 80 mg PO QAM 12/02/16 11/03/18 Furosemide [Lasix] 40 mg PO DAILY 12/02/16 11/03/18 Insulin Glargine,Hum.rec.anlog 46 units SQ BID 12/02/16 11/03/18 [Lantus Solostar] Pentoxifylline 400 mg PO BID 12/02/16 11/03/18 Pramipexole [Mirapex] 0.25 mg PO BID 12/02/16 11/03/18 Albuterol Sulfate [Ventolin Hfa] 2 puff IH Q4H PRN 01/05/18 11/03/18 Atorvastatin [Lipitor] 40 mg PO HS 01/05/18 11/03/18 Insulin LISPRO [HumaLOG] 10 - 12 units SQ TIDWM 01/05/18 11/03/18 Lansoprazole [Prevacid] 30 mg PO QAM 01/05/18 11/03/18 Warfarin Sodium 4 mg PO AD 10/01/18 11/03/18 Cholecalciferol (D-3) [Vitamin D] 1,000 unit PO DAILY 10/25/18 11/03/18 Lisinopril [Zestril] 10 mg PO DAILY 10/25/18 11/03/18 amLODIPine [Norvasc] 5 mg PO DAILY 10/25/18 11/03/18 Previous Rx's Medication Instructions Recorded metFORMIN [Glucophage] 500 mg PO BIDWM #60 tablet 10/02/18 Allergies Allergy/AdvReac Type Severity Reaction Status Date / Time vancomycin Allergy Intermediate Itching Verified 10/25/18 11:32 latex Allergy Rash Verified 10/25/18 11:32 peanut Allergy Anaphylaxis Verified 10/25/18 11:32 tree nut Allergy Anaphylaxis Verified 10/25/18 11:32 cephalexin [From Keflex] AdvReac Rash Verified 10/25/18 11:32 levofloxacin AdvReac Rash Verified 10/25/18 11:32 Sulfa (Sulfonamide AdvReac Rash Verified 10/25/18 11:32 Antibiotics) Past Medical History - Past Medical History Medical history: Reports: asthma, atrial fibrillation, CHF, DVT, diabetes, hyperlipidemia, hypertension, pulmonary embolus, renal disease, venous stasis, other Surgical history: Reports: herniorrhaphy Psychiatric history: Reports: no psych history - Social History Smoking Status: Never smoker Smokeless Tobacco Status: No Alcohol use: Reports: none Drug use: Reports: none Physical Exam - General Limitations: no limitations General appearance: alert Course Vital Signs Temperature 101 F H 11/03/18 05:08 Pulse Rate 110 11/03/18 05:08 Respiratory Rate 18 11/03/18 05:08 Blood Pressure 151/89 11/03/18 05:08 O2 Sat by Pulse Oximetry 100 11/03/18 05:08 Temperature 101 F H 11/03/18 05:08 Pulse Rate 111 11/03/18 06:26 Respiratory Rate 18 11/03/18 06:26 Blood Pressure 138/81 11/03/18 06:26 O2 Sat by Pulse Oximetry 100 11/03/18 06:26 Oxygen Delivery Oxygen Delivery Room Air Medical Decision Making - Medical Records Medical records reviewed: Yes I reviewed the patient's medical records. - Lab Data Lab results reviewed: Yes I reviewed the patient's lab results. Result diagrams: 11/03/18 05:44 11/03/18 05:44 Lab Results 11/03/18 11/03/18 11/03/18 Range/Units 05:44 05:44 05:44 WBC 13.8 H (4.3-11.1) K/mcL RBC 3.36 L (4.19-5.50) M/mcL Hgb 8.7 L (12.9-16.9) g/dL Hct 29.8 L (37.5-50.1) % MCV 88.7 (83.0-100.0) fL MCH 25.9 L (28.0-33.3) pg MCHC 29.2 L (31.6-35.5) g/dL RDW 15.0 H (11.5-14.5) % Plt Count 264 (140-400) K/mcL MPV 11.1 (9.4-12.4) fL Immature Gran % 0.4 (0-4) % Seg Neutrophils % 80.4 % Lymphocytes % 8.5 % Monocytes % 5.7 % Eosinophils % 4.9 % Basophils % 0.1 % Neutrophils # 11.1 H (1.6-8.9) K/mcL Lymphocytes # 1.2 (0.6-4.6) K/mcL Monocytes # 0.8 (0.0-1.3) K/mcL Eosinophils # 0.7 H (0.0-0.6) K/mcL Basophils # 0.0 (0.0-0.2) K/mcL Sodium 141 (136-145) mEq/L Potassium 5.0 (3.5-5.1) mEq/L Chloride 104 (98-107) mEq/L Carbon Dioxide 29 (23-29) mEq/L BUN 20 (6-20) mg/dL Creatinine 1.39 H (0.70-1.30) mg/dL Est GFR ( Amer) > 60 (> 60) Est GFR (Non-Af Amer) 54 L (> 60) BUN/Creatinine Ratio 14 (6-26) Glucose 254 H (70-105) mg/dL Calculated Osmolality 303 H (280-300) Lactic Acid 1.7 (0.5-2.2) mmol/L Calcium 8.5 L (8.6-10.3) mg/dL Total Bilirubin 0.3 (0.3-1.0) mg/dL AST 11 L (13-39) Units/L ALT 11 (7-52) Units/L Alkaline Phosphatase 96 (34-104) Units/L Troponin I < 0.03 (< 0.04) ng/mL Serum Total Protein 6.5 (6.4-8.9) g/dL Albumin 3.5 (3.5-5.7) g/dL Globulin 3.0 (2.4-3.5) g/dL Albumin/Globulin Ratio 1.2 (1.1-2.2) Lipase 46 (11-82) Units/L - EKG Data EKG #1 EKG attestation: Yes I reviewed and interpreted this EKG. EKG results narrative: EKG shows sinus tachycardia with ventricular rate of 110. No significant ST segment elevation or depression. No arrhythmia or ectopy. No significant change from prior EKG dated 09/30/2018. Attestation Statement - Attestation Attestation: I, Je Eli MD, personally evaluated this patient and discussed their management with the resident physician. I reviewed the resident's note and agree with the documented findings, medical decision making, and plan of care. 52-year-old male presents to the emergency department with a complaint of chills and shakes and low-grade fever which started at midnight tonight. He checked his temperature home and it was 99.1. Patient has a history of recurrent episodes of sepsis in the past and states this feels the same as when he gets septic. He is unsure of the etiology of his sepsis episodes. He does admit to some mild soreness in the left leg but no other complaints. He denies any headache. No sore throat. No cough or congestion. No abdominal pain. No nausea or vomiting or diarrhea. No melena, hematemesis, or hematochezia. No urinary symptoms. On examination patient is a morbidly obese male in no acute distress. He is alert and oriented 3. There is no cyanosis or diaphoresis. Patient is extremely pale. Breath sounds are decreased but clear and equal bilaterally. No rales or wheezes noted. Heart regular with a mild tachycardia. Abdomen soft and nontender with normal bowel sounds. Patient does have cellulitis of the posterior medial aspect of the left thigh with erythema and swelling and induration of the skin. The area is warm to touch and tender to palpation. EKG shows sinus tachycardia with ventricular rate of 110. No significant ST segment elevation or depression. No arrhythmia or ectopy. No significant change from prior EKG dated 09/30/2018. Labs reviewed. Lactic acid normal. Blood cultures obtained. IV fluids and antibiotics initiated. At shift change patient is still awaiting a CT of the left lower extremity. Patient is signed out to the [facility] team, Dr. Hurley and Dr. Sanderson.
[2018-11-03] MEDS ORDERED: 0.9 % Sodium Chloride 1,000 ML IVC ONE ×2 (05:37→08:44)
[2018-11-03] MEDS ORDERED: Isovue-370 500 ML BOTTLE IVP ONE (05:38)
[2018-11-03] MEDS ORDERED: Clindamycin 900 MG/50 ML 900 MG/50 ML IV.SOLN IVPB ONE (05:41)
[2018-11-03] MEDS ORDERED: Piperacillin/Tazobactam 3.375 GM in Water for inj. (sterile) 20 ML IVP ONE (05:41)
[2018-11-03] MEDS ORDERED: *HR* FentaNYL (PF) 100 MCG/2 ML VIAL IVP ONE (05:50)
[2018-11-03 05:59] LABS: Basophils % 0.1 %; Eosinophils # 0.7 K/mcL (0.0-0.6); Eosinophils % 4.9 %; Hematocrit 29.8 % (37.5-50.1); Hemoglobin 8.7 g/dL (12.9-16.9); Immature Granulocytes % 0.4 % (0-4); Lymphocytes # 1.2 K/mcL (0.6-4.6); Lymphocytes % 8.5 %; Mean Corpuscular HGB Conc 29.2 g/dL (31.6-35.5); Mean Corpuscular Hemoglobin 25.9 pg (28.0-33.3); Mean Corpuscular Volume 88.7 fL (83.0-100.0); Mean Platelet Volume 11.1 fL (9.4-12.4); Monocytes # 0.8 K/mcL (0.0-1.3); Monocytes % 5.7 %; Neutrophils # 11.1 K/mcL (1.6-8.9); Platelet Count 264 K/mcL (140-400); Red Blood Count 3.36 M/mcL (4.19-5.50); Segmented Neutrophils % 80.4 %; White Blood Count 13.8 K/mcL (4.3-11.1)
[2018-11-03 06:21] LABS: Alanine Aminotransferase 11 Units/L (7-52); Albumin 3.5 g/dL (3.5-5.7); Albumin/Globulin Ratio 1.2 (1.1-2.2); Alkaline Phosphatase 96 Units/L (34-104); Aspartate Amino Transferase 11 Units/L (13-39); BUN/Creatinine Ratio 14 (6-26); Bilirubin,Total 0.3 mg/dL (0.3-1.0); Blood Urea Nitrogen 20 mg/dL (6-20); Calcium 8.5 mg/dL (8.6-10.3); Carbon Dioxide 29 mEq/L (23-29); Chloride 104 mEq/L (98-107); Glucose 254 mg/dL (70-105); Lipase 46 Units/L (11-82); Osmolality,Calculated 303 (280-300); Sodium 141 mEq/L (136-145); Total Protein 6.5 g/dL (6.4-8.9); Troponin I < 0.03 ng/mL (< 0.04); eGFR For African Americans > 60 (> 60); eGFR For Non-African Americans 54 (> 60)
--- NOTE | 2018-11-03 07:02 | Emergency Department Note ---
Disposition Clinical Impression: Cellulitis of left thigh Sepsis Qualifiers: Sepsis type: sepsis due to unspecified organism Qualified Code(s): A41.9 - Sepsis, unspecified organism Disposition: Admitted As Inpatient Condition: Fair Time of Disposition: 09:34 General Adult HPI - General Chief complaint: ED Fever Stated complaint: fever Time Seen by Provider: 11/03/18 05:08 Source: patient, EMS Limitations: no limitations - History of Present Illness HPI Narrative: Patient was signed out to me at [address] Davison and Dr. Eli, please refer to their history of present illness, review of systems and physical exam for and MDM for further details. Pain Scale: 0 - Related Data Home Medications Medication Instructions Recorded Confirmed Acetaminophen [Tylenol] 500 mg PO HS 12/02/16 11/03/18 Carvedilol Phosphate [Coreg Cr] 80 mg PO QAM 12/02/16 11/03/18 Furosemide [Lasix] 40 mg PO DAILY 12/02/16 11/03/18 Insulin Glargine,Hum.rec.anlog 46 units SQ BID 12/02/16 11/03/18 [Lantus Solostar] Pentoxifylline 400 mg PO BID 12/02/16 11/03/18 Pramipexole [Mirapex] 0.25 mg PO BID 12/02/16 11/03/18 Albuterol Sulfate [Ventolin Hfa] 2 puff IH Q4H PRN 01/05/18 11/03/18 Atorvastatin [Lipitor] 40 mg PO HS 01/05/18 11/03/18 Insulin LISPRO [HumaLOG] 10 - 12 units SQ TIDWM 01/05/18 11/03/18 Lansoprazole [Prevacid] 30 mg PO QAM 01/05/18 11/03/18 Warfarin Sodium 4 mg PO AD 10/01/18 11/03/18 Cholecalciferol (D-3) [Vitamin D] 1,000 unit PO DAILY 10/25/18 11/03/18 Lisinopril [Zestril] 10 mg PO DAILY 10/25/18 11/03/18 amLODIPine [Norvasc] 5 mg PO DAILY 10/25/18 11/03/18 Previous Rx's Medication Instructions Recorded metFORMIN [Glucophage] 500 mg PO BIDWM #60 tablet 10/02/18 Allergies Allergy/AdvReac Type Severity Reaction Status Date / Time vancomycin Allergy Intermediate Itching Verified 10/25/18 11:32 latex Allergy Rash Verified 10/25/18 11:32 peanut Allergy Anaphylaxis Verified 10/25/18 11:32 tree nut Allergy Anaphylaxis Verified 10/25/18 11:32 cephalexin [From Keflex] AdvReac Rash Verified 10/25/18 11:32 levofloxacin AdvReac Rash Verified 10/25/18 11:32 Sulfa (Sulfonamide AdvReac Rash Verified 10/25/18 11:32 Antibiotics) Constitutional: Reports: fever, chills Cardiovascular: Denies: chest pain Respiratory: Denies: cough, dyspnea Gastrointestinal: Denies: abdominal pain, nausea, vomiting, melena, hematochezia Genitourinary: Denies: urgency, dysuria, frequency Musculoskeletal: Denies: back pain Integumentary: Reports: rash Past Medical History - Past Medical History Medical history: Reports: asthma, atrial fibrillation, CHF, DVT, diabetes, hyperlipidemia, hypertension, pulmonary embolus, renal disease, venous stasis, other Surgical history: Reports: herniorrhaphy Psychiatric history: Reports: no psych history - Social History Smoking Status: Never smoker Smokeless Tobacco Status: No Alcohol use: Reports: none Drug use: Reports: none Physical Exam - General Limitations: no limitations General appearance: alert, obese Course Vital Signs Temperature 101 F H 11/03/18 05:08 Pulse Rate 110 11/03/18 05:08 Respiratory Rate 18 11/03/18 05:08 Blood Pressure 151/89 11/03/18 05:08 O2 Sat by Pulse Oximetry 100 11/03/18 05:08 Temperature 101.6 F H 11/03/18 08:58 Pulse Rate 91 11/03/18 10:29 Respiratory Rate 18 11/03/18 10:29 Blood Pressure 136/67 11/03/18 10:29 O2 Sat by Pulse Oximetry 100 11/03/18 10:29 Oxygen Delivery Oxygen Delivery Room Air Medical Decision Making - MDM Narrative Medical decision making narrative: Patient is a 52-year-old male presenting with fever. On arrival, patient has febrile and tachycardic, he is normotensive. He was signed out to me by the night team, prior to my arrival, patient had received 1 L normal saline, 1 g of Tylenol, he was started on Zosyn as well as clindamycin for concern for cellulitis. On my examination, patient is alert and oriented 3, he does appear as though he is not feeling well but he is in no acute distress, he does have erythema to the left medial thigh and is tender to palpation, appears cellulitic in nature, he is tachycardic on examination otherwise regular rhythm. Patient does have leukocytosis at 13.8, as well as febrile on arrival and tachycardic. Patient does have positive Sirs with most likely source attributed to cellulitis of the left leg. Patient was given 1 L of fluids prior to my arrival, feels though we will hold on significant fluids as patient with chronic lower extremity swelling, do not want to overload this patient with fluids at this point to cause pulmonary congestion. Patient also has acute kidney injury with an elevated serum creatinine, appears at relative baseline, however we will slowly hydrate. Further blood work is relatively unremarkable. CT of the left leg, which shows findings consistent with cellulitis. Patient on states that he does have history of DVT, he currently is on Coumadin, will also perform a venous ultrasound prior to admission. While here in the ER, patient is received a second liter of normal saline. He was continued on Zosyn as well as clindamycin. DVT study was performed on the left extremity, which per tech shows no acute DVT. At this point in time, patient will be admitted for further evaluation and treatment. Hospitalist has been paged at [phone]. Hospitalist has excepted the patient at 10:30 - Medical Records Medical records reviewed: Yes I reviewed the patient's medical records. - Lab Data Lab results reviewed: Yes I reviewed the patient's lab results. Result diagrams: 11/03/18 05:44 11/03/18 05:44 Lab Results 11/03/18 11/03/18 11/03/18 Range/Units 05:44 05:44 05:44 WBC 13.8 H (4.3-11.1) K/mcL RBC 3.36 L (4.19-5.50) M/mcL Hgb 8.7 L (12.9-16.9) g/dL Hct 29.8 L (37.5-50.1) % MCV 88.7 (83.0-100.0) fL MCH 25.9 L (28.0-33.3) pg MCHC 29.2 L (31.6-35.5) g/dL RDW 15.0 H (11.5-14.5) % Plt Count 264 (140-400) K/mcL MPV 11.1 (9.4-12.4) fL Immature Gran % 0.4 (0-4) % Seg Neutrophils % 80.4 % Lymphocytes % 8.5 % Monocytes % 5.7 % Eosinophils % 4.9 % Basophils % 0.1 % Neutrophils # 11.1 H (1.6-8.9) K/mcL Lymphocytes # 1.2 (0.6-4.6) K/mcL Monocytes # 0.8 (0.0-1.3) K/mcL Eosinophils # 0.7 H (0.0-0.6) K/mcL Basophils # 0.0 (0.0-0.2) K/mcL PT (9.4-12.1) Seconds INR APTT (26.0-36.0) Seconds VBG pH (7.32-7.42) pH Units VBG pCO2 (41-51) mmHg VBG pO2 (25-50) mmHg VBG HCO3 (21-27) mEq/L Sodium 141 (136-145) mEq/L Potassium 5.0 (3.5-5.1) mEq/L Chloride 104 (98-107) mEq/L Carbon Dioxide 29 (23-29) mEq/L BUN 20 (6-20) mg/dL Creatinine 1.39 H (0.70-1.30) mg/dL Est GFR ( Amer) > 60 (> 60) Est GFR (Non-Af Amer) 54 L (> 60) BUN/Creatinine Ratio 14 (6-26) Glucose 254 H (70-105) mg/dL Calculated Osmolality 303 H (280-300) Lactic Acid 1.7 (0.5-2.2) mmol/L Calcium 8.5 L (8.6-10.3) mg/dL Total Bilirubin 0.3 (0.3-1.0) mg/dL AST 11 L (13-39) Units/L ALT 11 (7-52) Units/L Alkaline Phosphatase 96 (34-104) Units/L Troponin I < 0.03 (< 0.04) ng/mL C-Reactive Protein 9 (Less than 10) mg/L Serum Total Protein 6.5 (6.4-8.9) g/dL Albumin 3.5 (3.5-5.7) g/dL Globulin 3.0 (2.4-3.5) g/dL Albumin/Globulin Ratio 1.2 (1.1-2.2) Lipase 46 (11-82) Units/L Beta-Hydroxybutyric Acd (0.02-0.27) mmol/L Urine Color (Yellow) Urine Clarity (Clear) Urine pH (5.0-8.0) pH Units Ur Specific [place] (1.010-1.025) Urine Protein (Neg-Trace) mg/dL Urine Glucose (UA) (Normal) mg/dL Urine Ketones (Negative) mg/dL Urine Blood (Negative) Urine Nitrite (Negative) Urine Bilirubin (Negative) Urine Urobilinogen (Normal) mg/dL Ur Leukocyte Esterase (Negative) Urine Microscopic RBC (0-3) per hpf Urine Microscopic WBC (0-3) per hpf Ur Squamous Epith Cells (None-Few) per lpf Urine Bacteria (None-Few) per hpf Hyaline Casts (None-Few) per lpf Ur Culture Indicated? (NO) 11/03/18 11/03/18 11/03/18 Range/Units 07:34 08:06 08:06 WBC (4.3-11.1) K/mcL RBC (4.19-5.50) M/mcL Hgb (12.9-16.9) g/dL Hct (37.5-50.1) % MCV (83.0-100.0) fL MCH (28.0-33.3) pg MCHC (31.6-35.5) g/dL RDW (11.5-14.5) % Plt Count (140-400) K/mcL MPV (9.4-12.4) fL Immature Gran % (0-4) % Seg Neutrophils % % Lymphocytes % % Monocytes % % Eosinophils % % Basophils % % Neutrophils # (1.6-8.9) K/mcL Lymphocytes # (0.6-4.6) K/mcL Monocytes # (0.0-1.3) K/mcL Eosinophils # (0.0-0.6) K/mcL Basophils # (0.0-0.2) K/mcL PT 23.9 H (9.4-12.1) Seconds INR 2.1 APTT 39.0 H (26.0-36.0) Seconds VBG pH (7.32-7.42) pH Units VBG pCO2 (41-51) mmHg VBG pO2 (25-50) mmHg VBG HCO3 (21-27) mEq/L Sodium (136-145) mEq/L Potassium (3.5-5.1) mEq/L Chloride (98-107) mEq/L Carbon Dioxide (23-29) mEq/L BUN (6-20) mg/dL Creatinine (0.70-1.30) mg/dL Est GFR ( Amer) (> 60) Est GFR (Non-Af Amer) (> 60) BUN/Creatinine Ratio (6-26) Glucose (70-105) mg/dL Calculated Osmolality (280-300) Lactic Acid (0.5-2.2) mmol/L Calcium (8.6-10.3) mg/dL Total Bilirubin (0.3-1.0) mg/dL AST (13-39) Units/L ALT (7-52) Units/L Alkaline Phosphatase (34-104) Units/L Troponin I (< 0.04) ng/mL C-Reactive Protein (Less than 10) mg/L Serum Total Protein (6.4-8.9) g/dL Albumin (3.5-5.7) g/dL Globulin (2.4-3.5) g/dL Albumin/Globulin Ratio (1.1-2.2) Lipase (11-82) Units/L Beta-Hydroxybutyric Acd 0.18 (0.02-0.27) mmol/L Urine Color Yellow (Yellow) Urine Clarity Clear (Clear) Urine pH 6.5 (5.0-8.0) pH Units Ur Specific [place] 1.009 L (1.010-1.025) Urine Protein 100 H (Neg-Trace) mg/dL Urine Glucose (UA) 100 H (Normal) mg/dL Urine Ketones Negative (Negative) mg/dL Urine Blood Trace H (Negative) Urine Nitrite Negative (Negative) Urine Bilirubin Negative (Negative) Urine Urobilinogen Normal (Normal) mg/dL Ur Leukocyte Esterase Negative (Negative) Urine Microscopic RBC 3-5 H (0-3) per hpf Urine Microscopic WBC 0-3 (0-3) per hpf Ur Squamous Epith Cells Many H (None-Few) per lpf Urine Bacteria None Seen (None-Few) per hpf Hyaline Casts None Seen (None-Few) per lpf Ur Culture Indicated? NO (NO) 11/03/18 Range/Units 08:33 WBC (4.3-11.1) K/mcL RBC (4.19-5.50) M/mcL Hgb (12.9-16.9) g/dL Hct (37.5-50.1) % MCV (83.0-100.0) fL MCH (28.0-33.3) pg MCHC (31.6-35.5) g/dL RDW (11.5-14.5) % Plt Count (140-400) K/mcL MPV (9.4-12.4) fL Immature Gran % (0-4) % Seg Neutrophils % % Lymphocytes % % Monocytes % % Eosinophils % % Basophils % % Neutrophils # (1.6-8.9) K/mcL Lymphocytes # (0.6-4.6) K/mcL Monocytes # (0.0-1.3) K/mcL Eosinophils # (0.0-0.6) K/mcL Basophils # (0.0-0.2) K/mcL PT (9.4-12.1) Seconds INR APTT (26.0-36.0) Seconds VBG pH 7.34 (7.32-7.42) pH Units VBG pCO2 47 (41-51) mmHg VBG pO2 81 H (25-50) mmHg VBG HCO3 26 (21-27) mEq/L Sodium (136-145) mEq/L Potassium (3.5-5.1) mEq/L Chloride (98-107) mEq/L Carbon Dioxide (23-29) mEq/L BUN (6-20) mg/dL Creatinine (0.70-1.30) mg/dL Est GFR ( Amer) (> 60) Est GFR (Non-Af Amer) (> 60) BUN/Creatinine Ratio (6-26) Glucose (70-105) mg/dL Calculated Osmolality (280-300) Lactic Acid (0.5-2.2) mmol/L Calcium (8.6-10.3) mg/dL Total Bilirubin (0.3-1.0) mg/dL AST (13-39) Units/L ALT (7-52) Units/L Alkaline Phosphatase (34-104) Units/L Troponin I (< 0.04) ng/mL C-Reactive Protein (Less than 10) mg/L Serum Total Protein (6.4-8.9) g/dL Albumin (3.5-5.7) g/dL Globulin (2.4-3.5) g/dL Albumin/Globulin Ratio (1.1-2.2) Lipase (11-82) Units/L Beta-Hydroxybutyric Acd (0.02-0.27) mmol/L Urine Color (Yellow) Urine Clarity (Clear) Urine pH (5.0-8.0) pH Units Ur Specific [place] (1.010-1.025) Urine Protein (Neg-Trace) mg/dL Urine Glucose (UA) (Normal) mg/dL Urine Ketones (Negative) mg/dL Urine Blood (Negative) Urine Nitrite (Negative) Urine Bilirubin (Negative) Urine Urobilinogen (Normal) mg/dL Ur Leukocyte Esterase (Negative) Urine Microscopic RBC (0-3) per hpf Urine Microscopic WBC (0-3) per hpf Ur Squamous Epith Cells (None-Few) per lpf Urine Bacteria (None-Few) per hpf Hyaline Casts (None-Few) per lpf Ur Culture Indicated? (NO) - Radiology Data Radiology results reviewed: Yes I reviewed the patient's radiology results. Chest X-Ray 11/03/18 05:13 IMPRESSION: No acute disease. D/ / Karson Velarde MD / Karson Velarde MD Interpreting Provider: Karson Velarde MD Chest X-Ray 11/03/18 05:13 IMPRESSION: No acute disease. D/ / Karson Velarde MD / Karson Velarde MD Interpreting Provider: Karson Velarde MD Lower Extremity CT 11/03/18 05:38 IMPRESSION: Nonspecific subcutaneous edema and skin thickening from the distal left thigh to the left lower leg suggesting cellulitis in the proper clinical setting. No evidence of abscess or deep soft tissue infection. No acute bone or joint abnormality. Moderate tricompartmental osteoarthritis of the left knee. D/ / Sam Chandra MD / Sam Chandra MD Interpreting Provider: Sam Chandra MD - EKG Data EKG #1 EKG attestation: Yes I reviewed and interpreted this EKG. EKG results narrative: EKG obtained at 0529 with ventricular rate of 110, regular rhythm, right axis deviation, no ST segment elevation, depression, no T-wave changes. Reviewing old EKG obtained on 09/30/2018 appears grossly unchanged. Attestation Statement - Attestation Attestation: I, Addison Sanderson DO, examined this patient [id number] and my medical decision-making was reviewed with Dr. Karson Hurley , Resident Physician. I agree with the documented findings, disposition and treatment plan as described except to the extent set forth below. I personally supervised and was present for the bowen/critical portions of the procedures completed by the resident documented below. Please see my progress notes for details.
[2018-11-03] MEDS ORDERED: Ibuprofen 800 MG TABLET PO ONE (07:28)
[2018-11-03 07:40] LABS: Bilirubin,Urine Negative (Negative); Blood,Urine Trace (Negative); Clarity,Urine Clear (Clear); Color,Urine Yellow (Yellow); Glucose,Urine (UA) 100 mg/dL (Normal); Ketones,Urine Negative (Negative); Leukocyte Esterase,Urine Negative (Negative); Nitrite,Urine Negative (Negative); PH,Urine 6.5 pH Units (5.0-8.0); Protein,Urine 100 mg/dL (Neg-Trace); Specific Gravity,Urine 1.009 (1.010-1.025); Urobilinogen,Urine Normal (Normal)
[2018-11-03 07:42] LABS: Bacteria,Urine None Seen per hpf (None-Few); Hyaline Casts,Urine None Seen per lpf (None-Few); Squamous Epithelial Cell,Urine Many per lpf (None-Few); WBC,Urine 0-3 per hpf (0-3)
--- NOTE | 2018-11-03 07:46 | Emergency Department Note ---
Disposition Clinical Impression: Cellulitis of left thigh Sepsis Qualifiers: Sepsis type: sepsis due to unspecified organism Qualified Code(s): A41.9 - Sepsis, unspecified organism Disposition: Admitted As Inpatient Condition: Fair Referrals: Jaime Paula MD [Primary Care Provider] - Time of Disposition: 11:24 General Adult HPI - General Chief complaint: ED Fever Stated complaint: fever Time Seen by Provider: 11/03/18 05:08 Source: patient, EMS Limitations: no limitations - History of Present Illness Pain Scale: 5 - Related Data Home Medications Medication Instructions Recorded Confirmed Acetaminophen [Tylenol] 500 mg PO HS 12/02/16 11/03/18 Carvedilol Phosphate [Coreg Cr] 80 mg PO QAM 12/02/16 11/03/18 Furosemide [Lasix] 40 mg PO DAILY 12/02/16 11/03/18 Insulin Glargine,Hum.rec.anlog 46 units SQ BID 12/02/16 11/03/18 [Lantus Solostar] Pentoxifylline 400 mg PO BID 12/02/16 11/03/18 Pramipexole [Mirapex] 0.25 mg PO BID 12/02/16 11/03/18 Albuterol Sulfate [Ventolin Hfa] 2 puff IH Q4H PRN 01/05/18 11/03/18 Atorvastatin [Lipitor] 40 mg PO HS 01/05/18 11/03/18 Insulin LISPRO [HumaLOG] 10 - 12 units SQ TIDWM 01/05/18 11/03/18 Lansoprazole [Prevacid] 30 mg PO QAM 01/05/18 11/03/18 Warfarin Sodium 4 mg PO AD 10/01/18 11/03/18 Cholecalciferol (D-3) [Vitamin D] 1,000 unit PO DAILY 10/25/18 11/03/18 Lisinopril [Zestril] 10 mg PO DAILY 10/25/18 11/03/18 amLODIPine [Norvasc] 5 mg PO DAILY 10/25/18 11/03/18 Previous Rx's Medication Instructions Recorded metFORMIN [Glucophage] 500 mg PO BIDWM #60 tablet 10/02/18 Allergies Allergy/AdvReac Type Severity Reaction Status Date / Time vancomycin Allergy Intermediate Itching Verified 10/25/18 11:32 latex Allergy Rash Verified 10/25/18 11:32 peanut Allergy Anaphylaxis Verified 10/25/18 11:32 tree nut Allergy Anaphylaxis Verified 10/25/18 11:32 cephalexin [From Keflex] AdvReac Rash Verified 10/25/18 11:32 levofloxacin AdvReac Rash Verified 10/25/18 11:32 Sulfa (Sulfonamide AdvReac Rash Verified 10/25/18 11:32 Antibiotics) Constitutional: Reports: fever, chills Cardiovascular: Denies: chest pain Respiratory: Denies: cough, dyspnea Gastrointestinal: Denies: abdominal pain, nausea, vomiting, melena, hematochezia Genitourinary: Denies: urgency, dysuria, frequency Musculoskeletal: Denies: back pain Integumentary: Reports: rash Past Medical History - Past Medical History Medical history: Reports: asthma, atrial fibrillation, CHF, DVT, diabetes, hyperlipidemia, hypertension, pulmonary embolus, renal disease, venous stasis, other Surgical history: Reports: herniorrhaphy Psychiatric history: Reports: no psych history - Social History Smoking Status: Never smoker Smokeless Tobacco Status: No Alcohol use: Reports: none Drug use: Reports: none Physical Exam - General Limitations: no limitations General appearance: alert, obese Course Vital Signs Temperature 101 F H 11/03/18 05:08 Pulse Rate 110 11/03/18 05:08 Respiratory Rate 18 11/03/18 05:08 Blood Pressure 151/89 11/03/18 05:08 O2 Sat by Pulse Oximetry 100 11/03/18 05:08 Temperature 99.4 F 11/03/18 11:07 Pulse Rate 91 11/03/18 11:07 Respiratory Rate 19 11/03/18 11:07 Blood Pressure 142/64 11/03/18 11:07 O2 Sat by Pulse Oximetry 99 11/03/18 11:07 Oxygen Delivery Oxygen Delivery Room Air Medical Decision Making - Lab Data Result diagrams: 11/03/18 05:44 11/03/18 05:44 Lab Results 11/03/18 11/03/18 11/03/18 Range/Units 05:44 05:44 05:44 WBC 13.8 H (4.3-11.1) K/mcL RBC 3.36 L (4.19-5.50) M/mcL Hgb 8.7 L (12.9-16.9) g/dL Hct 29.8 L (37.5-50.1) % MCV 88.7 (83.0-100.0) fL MCH 25.9 L (28.0-33.3) pg MCHC 29.2 L (31.6-35.5) g/dL RDW 15.0 H (11.5-14.5) % Plt Count 264 (140-400) K/mcL MPV 11.1 (9.4-12.4) fL Immature Gran % 0.4 (0-4) % Seg Neutrophils % 80.4 % Lymphocytes % 8.5 % Monocytes % 5.7 % Eosinophils % 4.9 % Basophils % 0.1 % Neutrophils # 11.1 H (1.6-8.9) K/mcL Lymphocytes # 1.2 (0.6-4.6) K/mcL Monocytes # 0.8 (0.0-1.3) K/mcL Eosinophils # 0.7 H (0.0-0.6) K/mcL Basophils # 0.0 (0.0-0.2) K/mcL PT (9.4-12.1) Seconds INR APTT (26.0-36.0) Seconds VBG pH (7.32-7.42) pH Units VBG pCO2 (41-51) mmHg VBG pO2 (25-50) mmHg VBG HCO3 (21-27) mEq/L Sodium 141 (136-145) mEq/L Potassium 5.0 (3.5-5.1) mEq/L Chloride 104 (98-107) mEq/L Carbon Dioxide 29 (23-29) mEq/L BUN 20 (6-20) mg/dL Creatinine 1.39 H (0.70-1.30) mg/dL Est GFR ( Amer) > 60 (> 60) Est GFR (Non-Af Amer) 54 L (> 60) BUN/Creatinine Ratio 14 (6-26) Glucose 254 H (70-105) mg/dL Calculated Osmolality 303 H (280-300) Lactic Acid 1.7 (0.5-2.2) mmol/L Calcium 8.5 L (8.6-10.3) mg/dL Total Bilirubin 0.3 (0.3-1.0) mg/dL AST 11 L (13-39) Units/L ALT 11 (7-52) Units/L Alkaline Phosphatase 96 (34-104) Units/L Troponin I < 0.03 (< 0.04) ng/mL C-Reactive Protein 9 (Less than 10) mg/L Serum Total Protein 6.5 (6.4-8.9) g/dL Albumin 3.5 (3.5-5.7) g/dL Globulin 3.0 (2.4-3.5) g/dL Albumin/Globulin Ratio 1.2 (1.1-2.2) Lipase 46 (11-82) Units/L Beta-Hydroxybutyric Acd (0.02-0.27) mmol/L Urine Color (Yellow) Urine Clarity (Clear) Urine pH (5.0-8.0) pH Units Ur Specific [place] (1.010-1.025) Urine Protein (Neg-Trace) mg/dL Urine Glucose (UA) (Normal) mg/dL Urine Ketones (Negative) mg/dL Urine Blood (Negative) Urine Nitrite (Negative) Urine Bilirubin (Negative) Urine Urobilinogen (Normal) mg/dL Ur Leukocyte Esterase (Negative) Urine Microscopic RBC (0-3) per hpf Urine Microscopic WBC (0-3) per hpf Ur Squamous Epith Cells (None-Few) per lpf Urine Bacteria (None-Few) per hpf Hyaline Casts (None-Few) per lpf Ur Culture Indicated? (NO) 11/03/18 11/03/18 11/03/18 Range/Units 07:34 08:06 08:06 WBC (4.3-11.1) K/mcL RBC (4.19-5.50) M/mcL Hgb (12.9-16.9) g/dL Hct (37.5-50.1) % MCV (83.0-100.0) fL MCH (28.0-33.3) pg MCHC (31.6-35.5) g/dL RDW (11.5-14.5) % Plt Count (140-400) K/mcL MPV (9.4-12.4) fL Immature Gran % (0-4) % Seg Neutrophils % % Lymphocytes % % Monocytes % % Eosinophils % % Basophils % % Neutrophils # (1.6-8.9) K/mcL Lymphocytes # (0.6-4.6) K/mcL Monocytes # (0.0-1.3) K/mcL Eosinophils # (0.0-0.6) K/mcL Basophils # (0.0-0.2) K/mcL PT 23.9 H (9.4-12.1) Seconds INR 2.1 APTT 39.0 H (26.0-36.0) Seconds VBG pH (7.32-7.42) pH Units VBG pCO2 (41-51) mmHg VBG pO2 (25-50) mmHg VBG HCO3 (21-27) mEq/L Sodium (136-145) mEq/L Potassium (3.5-5.1) mEq/L Chloride (98-107) mEq/L Carbon Dioxide (23-29) mEq/L BUN (6-20) mg/dL Creatinine (0.70-1.30) mg/dL Est GFR ( Amer) (> 60) Est GFR (Non-Af Amer) (> 60) BUN/Creatinine Ratio (6-26) Glucose (70-105) mg/dL Calculated Osmolality (280-300) Lactic Acid (0.5-2.2) mmol/L Calcium (8.6-10.3) mg/dL Total Bilirubin (0.3-1.0) mg/dL AST (13-39) Units/L ALT (7-52) Units/L Alkaline Phosphatase (34-104) Units/L Troponin I (< 0.04) ng/mL C-Reactive Protein (Less than 10) mg/L Serum Total Protein (6.4-8.9) g/dL Albumin (3.5-5.7) g/dL Globulin (2.4-3.5) g/dL Albumin/Globulin Ratio (1.1-2.2) Lipase (11-82) Units/L Beta-Hydroxybutyric Acd 0.18 (0.02-0.27) mmol/L Urine Color Yellow (Yellow) Urine Clarity Clear (Clear) Urine pH 6.5 (5.0-8.0) pH Units Ur Specific [place] 1.009 L (1.010-1.025) Urine Protein 100 H (Neg-Trace) mg/dL Urine Glucose (UA) 100 H (Normal) mg/dL Urine Ketones Negative (Negative) mg/dL Urine Blood Trace H (Negative) Urine Nitrite Negative (Negative) Urine Bilirubin Negative (Negative) Urine Urobilinogen Normal (Normal) mg/dL Ur Leukocyte Esterase Negative (Negative) Urine Microscopic RBC 3-5 H (0-3) per hpf Urine Microscopic WBC 0-3 (0-3) per hpf Ur Squamous Epith Cells Many H (None-Few) per lpf Urine Bacteria None Seen (None-Few) per hpf Hyaline Casts None Seen (None-Few) per lpf Ur Culture Indicated? NO (NO) 11/03/18 Range/Units 08:33 WBC (4.3-11.1) K/mcL RBC (4.19-5.50) M/mcL Hgb (12.9-16.9) g/dL Hct (37.5-50.1) % MCV (83.0-100.0) fL MCH (28.0-33.3) pg MCHC (31.6-35.5) g/dL RDW (11.5-14.5) % Plt Count (140-400) K/mcL MPV (9.4-12.4) fL Immature Gran % (0-4) % Seg Neutrophils % % Lymphocytes % % Monocytes % % Eosinophils % % Basophils % % Neutrophils # (1.6-8.9) K/mcL Lymphocytes # (0.6-4.6) K/mcL Monocytes # (0.0-1.3) K/mcL Eosinophils # (0.0-0.6) K/mcL Basophils # (0.0-0.2) K/mcL PT (9.4-12.1) Seconds INR APTT (26.0-36.0) Seconds VBG pH 7.34 (7.32-7.42) pH Units VBG pCO2 47 (41-51) mmHg VBG pO2 81 H (25-50) mmHg VBG HCO3 26 (21-27) mEq/L Sodium (136-145) mEq/L Potassium (3.5-5.1) mEq/L Chloride (98-107) mEq/L Carbon Dioxide (23-29) mEq/L BUN (6-20) mg/dL Creatinine (0.70-1.30) mg/dL Est GFR ( Amer) (> 60) Est GFR (Non-Af Amer) (> 60) BUN/Creatinine Ratio (6-26) Glucose (70-105) mg/dL Calculated Osmolality (280-300) Lactic Acid (0.5-2.2) mmol/L Calcium (8.6-10.3) mg/dL Total Bilirubin (0.3-1.0) mg/dL AST (13-39) Units/L ALT (7-52) Units/L Alkaline Phosphatase (34-104) Units/L Troponin I (< 0.04) ng/mL C-Reactive Protein (Less than 10) mg/L Serum Total Protein (6.4-8.9) g/dL Albumin (3.5-5.7) g/dL Globulin (2.4-3.5) g/dL Albumin/Globulin Ratio (1.1-2.2) Lipase (11-82) Units/L Beta-Hydroxybutyric Acd (0.02-0.27) mmol/L Urine Color (Yellow) Urine Clarity (Clear) Urine pH (5.0-8.0) pH Units Ur Specific [place] (1.010-1.025) Urine Protein (Neg-Trace) mg/dL Urine Glucose (UA) (Normal) mg/dL Urine Ketones (Negative) mg/dL Urine Blood (Negative) Urine Nitrite (Negative) Urine Bilirubin (Negative) Urine Urobilinogen (Normal) mg/dL Ur Leukocyte Esterase (Negative) Urine Microscopic RBC (0-3) per hpf Urine Microscopic WBC (0-3) per hpf Ur Squamous Epith Cells (None-Few) per lpf Urine Bacteria (None-Few) per hpf Hyaline Casts (None-Few) per lpf Ur Culture Indicated? (NO) Attestation Statement - Attestation Attestation: I, Addison Sanderson DO, examined this patient [id number] and my medical deci marcelo-making was reviewed with Dr. Karson Hurley , Resident Physician. I agree with the documented findings, disposition and treatment plan as described except to the extent set forth below. I personally supervised and was present for the bowen/critical portions of the procedures completed by the resident documented below. Please see my progress notes for details. 52-year-old male received in sign out from the overnight physicians Dr. Eli and Dr. Davison. Patient presented with fever left leg pain and generalized malaise. Patient has not fallen or injured himself. He has a history of sepsis secondary to poorly controlled diabetes and morbid obesity. He is currently den trupti chest pain, shortness of breath, headache or vision change. Patient has had fevers and chills at home. He denies any nausea vomiting or diarrhea. Has not traveled outside the country. He has not had any recent surgical intervention or been provided any antibiotics. The workup is established prior to arrival the patient has an elevated white blood cell count but no signs of profound sepsis or septic shock. His blood pressures remain stable. 1 L of fluid was given the patient's heart rate is responding appropriately. Single liter of fluid is been ordered at this time. Patient does have a remote history of deep venous thrombosis in the left lower extremity that he felt like elisabet kirkland in a similar fashion in the past. Patient will be evaluated with ultrasound of the left lower extremity. He also have coagulation studies ordered at this time. Hematocrit regimen his artery been provided. Patient will most likely require admission. His physical exam is otherwise unchanged at this time onset of the vital sign review. Lungs remain clear. Heart is regular but tachycardic. Abdomen is soft. examination shows no signs of redness crepitus or deformity to the testicles or penis at this time. He has redness warmth swelling and discomfort in the mid shaft of the left thigh down into the foot. He has appreciable capillary refill but difficult evaluation of the distal pulses. Both lower extremities appear to be similar in presentation onset of the redness warmth and discoloration to the left leg. CT imaging that leg is also pending at this time and ultrasound study is to be evaluated. Disposition to be completed and admission process will be established. See detailed documentation the physical exam, medical intervention, medical decision-making and disposition in the resident physician's note. No critical care applied to the patient's treatment course at this time. 0915 Ultrasound is negative the left lower extremity. No acute signs of deep venous thrombosis are able to be visualized at this point. Patient is otherwise stable. His heart rate is coming down to 103 with 1 L of fluid and a second was ordered at this time. Does not show any profound signs of sepsis at this time. He does have what appears to be sepsis secondary to cellulitis but no signs of shock. Patient will be admitted at this point. CT imaging of the left lower extremity was completed and evaluated. 1015 Patient's labs and workup are unremarkable at this point outside of the known cellulitis. The hospitalist was contacted and Dr. morrell reviewed the case. No other recommendations or concerns at this time. Appropriate antibiotic regimen has been provided and the patient has been appropriately fluid resuscitated with normal vital signs the time of admission. Patient will be monitored here in the emergency department until the admission process is completed. No other acute concerns or issues noted at this time.
[2018-11-03 08:35] LABS: INR 2.1; Prothrombin Time 23.9 Seconds (9.4-12.1)
[2018-11-03 08:36] LABS: VBG HCO3 26 mEq/L (21-27); VBG PCO2 47 mmHg (41-51); VBG PH 7.34 pH Units (7.32-7.42); VBG PO2 81 mmHg (25-50)
[2018-11-03 09:19] LABS: C-Reactive Protein 9 mg/L (Less than 10)
[2018-11-03] MEDS: 0.9 % Sodium Chloride 1,000 ML IVC SCH ×3 (11:05→22:08)
[2018-11-03] MEDS ORDERED: Naloxone 0.4 MG/ML INJ IVP PRN ×2 (13:23→13:27)
[2018-11-03] MEDS ORDERED: Ondansetron 4 MG/2 ML VIAL IVP PRN (13:23)
[2018-11-03] MEDS ORDERED: Acetaminophen 325 MG TABLET PO PRN (13:23)
[2018-11-03] MEDS ORDERED: *HR* HYDROcodone/Acet 5/325 mg TABLET PO PRN (13:23)
--- NOTE | 2018-11-03 13:29 | Internal Med History&Physical ---
Date of Encounter: 11/03/18 Time of Encounter: 13:29 Internal Medicine - H&P: HPI Chief complaint: erythema and tenderness History of present illness: Mr. Jones is a 52 year old male asthma, atrial fibrillation, CHF, DVT, diabetes, hyperlipidemia, hypertension, pulmonary embolus, renal disease, venous stasis, who presented To the ER with erythema, tenderness of the left medial thigh. On arrival the patient has fever and was tachycardiac however his blood pressure w as normal. The patient was evaluated by the ER staff and laboratory data revealed leukocytosis of 13.8, he was treated with fluid antibiotics including clindamycin and Zosyn due to several antibiotics allergies. CT scan of the left leg revealed evidence of cellulitis. Studies revealed no evidence of acute DVT. The patient was admitted for further evaluation and management of left lower extremity cellulitis. Past Med Surg Social Fam HX - Past Medical History Medical history: asthma, atrial fibrillation, CHF, DVT, diabetes, hyperlipidemia, hypertension, pulmonary embolus, renal disease, venous stasis, other Additional medical history: Charcot's foot, Venous insufficiency, morbid obesity Psychiatric history: no psych history - Past Surgical History Surgical History: herniorrhaphy Additional surgical history: right foot surgery - Social History Smoking Status: Never smoker Smokeless Tobacco Status: No Alcohol use: none Drug use: none - Family History Father Family Member Ethnicity: Non- Living Status: Still Living Hx Family Cardiac Disorders: Yes Hx Family Respiratory Disorders: No Hx Family Cancer: No Hx Family GI Disorders: No Hx Family Endocrine Disorder: No Hx Family Neuromuscular Disorders: No Hx Family Neurologic Disorders: No Hx Family HEENT Disorders: No Hx Family Autoimmune Disorders: No Mother Adopted: No Family Member Ethnicity: Non- Living Status: Hx Family Cardiac Disorders: Yes Hx Family Respiratory Disorders: No Hx Family Cancer: No Hx Family GI Disorders: No Hx Family Endocrine Disorder: Yes (DM) Hx Family Neuromuscular Disorders: No Hx Family Neurologic Disorders: Yes (Alzheimer's disease) Hx Family HEENT Disorders: No Hx Family Autoimmune Disorders: No Brother Family Member Ethnicity: Non- Living Status: Still Living Hx Family Cardiac Disorders: Yes Hx Family Respiratory Disorders: Yes Hx Family Cancer: No Hx Family GI Disorders: No Hx Family Endocrine Disorder: No Hx Family Neuromuscular Disorders: No Hx Family Neurologic Disorders: No Hx Family HEENT Disorders: No Hx Family Autoimmune Disorders: No Internal Medicine - H&P: Meds Acetaminophen [Tylenol] 500 mg PO HS 12/02/16 [History] Carvedilol Phosphate [Coreg Cr] 80 mg PO QAM 12/02/16 [History] Furosemide [Lasix] 40 mg PO DAILY 12/02/16 [History] Insulin Glargine,Hum.rec.anlog [Lantus Solostar] 46 units SQ BID 12/02/16 [His tory] Pentoxifylline 400 mg PO BID 12/02/16 [History] Pramipexole [Mirapex] 0.25 mg PO BID 12/02/16 [History] Albuterol Sulfate [Ventolin Hfa] 2 puff IH Q4H PRN 01/05/18 [History] Atorvastatin [Lipitor] 40 mg PO HS 01/05/18 [History] Insulin LISPRO [HumaLOG] 10 - 12 units SQ TIDWM 01/05/18 [History] Lansoprazole [Prevacid] 30 mg PO QAM 01/05/18 [History] metFORMIN [Glucophage] 500 mg PO BIDWM #60 tablet 10/02/18 [Rx] Cholecalciferol (D-3) [Vitamin D] 1,000 unit PO DAILY 10/25/18 [History] Lisinopril [Zestril] 10 mg PO DAILY 10/25/18 [History] amLODIPine [Norvasc] 5 mg PO DAILY 10/25/18 [History] Clindamycin HCl 600 mg PO QID #20 capsule 11/08/18 [Rx] Ferrous Sulfate 325 mg PO BIDWM #60 tablet 11/08/18 [Rx] GuaiFENesin/Dextromethorphan [[facility] Adult Dm Maximum Liquid] 5 ml PO Q4-6H PRN #177 ml 11/08/18 [Rx] Lactobacillus [Culturelle] 1 each PO BID #14 cap.sprink 11/08/18 [Rx] Warfarin [Coumadin] 4 mg PO 1800 #30 tablet 11/08/18 [Rx] Allergy/AdvReac Type Severity Reaction Status Date / Time vancomycin Allergy Intermediate Itching Verified 10/25/18 11:32 latex Allergy Rash Verified 10/25/18 11:32 peanut Allergy Anaphylaxis Verified 10/25/18 11:32 tree nut Allergy Anaphylaxis Verified 10/25/18 11:32 cephalexin [From Keflex] AdvReac Rash Verified 10/25/18 11:32 levofloxacin AdvReac Rash Verified 10/25/18 11:32 Sulfa (Sulfonamide AdvReac Rash Verified 10/25/18 11:32 Antibiotics) All Systems PM: A 10-system review of systems was performed and is negative for pertinent findings except as documented above in the HPI. - Constitutional Vitals: Temp Pulse Resp BP Pulse Ox 98.9 F 85 16 103/56 94 11/03/18 12:49 11/03/18 12:49 11/03/18 12:49 11/03/18 12:49 11/03/18 12:49 General appearance: Present: A&O X 3 Exam: . - Head Head exam: Present: atraumatic, normocephalic - Neck Neck exam general surgery: Present: supple, trachea midline. Absent: lymphadenopathy - Respiratory Respiratory exam: Present: rhonchi. Absent: accessory muscle use, rales, wheezes - Cardiovascular Cardiovascular exam: Present: RRR, +S1, +S2. Absent: diastolic murmur, gallop, rubs, systolic murmur - GI/Abdominal GI/Abdominal exam: Present: normal bowel sounds, soft, no peritoneal signs. Absent: distended, tenderness - Extremities Exam Extremities exam: Present: warm, radial pulses palpable and symmetrical. Absent: calf tenderness, cyanotic Additional comments: Erythema ,tenderness and induration of the left thigh) Internal Med - H&P Results - Labs CBC & Chem 7: 11/08/18 06:09 11/08/18 06:09 Labs: Short CBC 11/03/18 Range/Units 05:44 WBC 13.8 H (4.3-11.1) K/mcL Hgb 8.7 L (12.9-16.9) g/dL Hct 29.8 L (37.5-50.1) % Plt Count 264 (140-400) K/mcL Neutrophils # 11.1 H (1.6-8.9) K/mcL BMP 11/03/18 05:44 Sodium 141 Potassium 5.0 Chloride 104 Carbon Dioxide 29 BUN 20 Creatinine 1.39 H Glucose 254 H Calcium 8.5 L Cardiac Enzymes 11/03/18 Range/Units 05:44 Troponin I < 0.03 (< 0.04) ng/mL Liver Function 11/03/18 Range/Units 05:44 Total Bilirubin 0.3 (0.3-1.0) mg/dL AST 11 L (13-39) Units/L ALT 11 (7-52) Units/L Alkaline Phosphatase 96 (34-104) Units/L Albumin 3.5 (3.5-5.7) g/dL Urine 11/03/18 Range/Units 07:34 Urine Color Yellow (Yellow) Urine Clarity Clear (Clear) Urine pH 6.5 (5.0-8.0) pH Units Ur Specific [place] 1.009 L (1.010-1.025) Urine Protein 100 H (Neg-Trace) mg/dL Urine Glucose (UA) 100 H (Normal) mg/dL - ABG Interpretation ABG results: 11/03/18 08:33 VBG pH 7.34 VBG pCO2 47 VBG pO2 81 H VBG HCO3 26 - Impressions ITS Impressions Chest X-Ray 11/03/18 05:13 IMPRESSION: No acute disease. D/ / Karson Velarde MD / Karson Velarde MD Interpreting Provider: Karson Velarde MD Lower Extremity CT 11/03/18 05:38 IMPRESSION: Nonspecific subcutaneous edema and skin thickening from the distal left thigh to the left lower leg suggesting cellulitis in the proper clinical setting. No evidence of abscess or deep soft tissue infection. No acute bone or joint abnormality. Moderate tricompartmental osteoarthritis of the left knee. D/ / 11/03/2018 07:50:20 Sam Chandra MD / laurence Interpreting Provider: Sam Chandra MD - Assessment and Plan (1) Cellulitis of left thigh Status: Acute Assessment and plan: the patient presented with erythema, tenderness and induration of the left lowe r extremity up to midthigh, laboratory data revealed leukocytosis of 13.8, CT scan of the left leg revealed evidence of cellulitis. Studies revealed no evidence of acute DVT. He was treated with antibiotics including clindamycin and Zosyn due to several antibiotics allergies. we will continue the current antibiotic regimen. (2) KELSY (acute kidney injury) Status: Acute Assessment and plan: The patient has history of chronic kidney disease, most likely secondary to diabetic nephropathy, the patient is creatinine is slightly up from baseline most likely secondary pre-renal etiology due to volume depletion in the sitting underlying infectious process , ACEIS, and diuretics, we'll continue to monitor renal function, hold diuretics and ACEIs , renal dosing of medication but current EGFR (3) Allergy to multiple antibiotics Status: Acute Assessment and plan: antibiotic regimen as well as dosage was discussed with pharmacy (4) Diabetes mellitus type 2 in obese Status: Acute Assessment and plan: we will start insulin sliding scale with moderate coverage. (5) PAD (peripheral artery disease) Status: Chronic (6) AF (atrial fibrillation) Status: Chronic Assessment and plan: we'll continue chronic anticoagulation was Coumadin and continue to monitor INR to adjust regimen accordingly Qualifiers: Atrial fibrillation type: chronic Qualified Code(s): I48.2 - Chronic atrial fibrillation (7) CHF (congestive heart failure) Status: Chronic Assessment and plan: we will continue course IV hydration , resume lisinopril and diuretics when creatinine is at baseline. Qualifiers: Heart failure type: diastolic Heart failure chronicity: chronic Qualified Code(s): I50.32 - Chronic diastolic (congestive) heart failure (8) Chronic kidney disease Status: Acute Qualifiers: Chronic kidney disease stage: unspecified stage Qualified Code(s): N18.9 - Chronic kidney disease, unspecified (9) Anemia in chronic kidney disease Status: Acute Assessment and plan: anemia most likely secondary to chronic kidney disease, consider consulting nephrology to start erythropoietin stimulating agents after repleting iron stores, we will obtain iron studies. Qualifiers: Chronic kidney disease stage: stage 3 (moderate) Qualified Code(s): N18.3 - Chronic kidney disease, stage 3 (moderate); D63.1 - Anemia in chronic kidney disease - Time Spent With Patient Total time spent is greater than 50% in coordination of care (as documented) at patient's floor/unit and/or counseling patient:
[2018-11-03] MEDS ORDERED: 0.9 % Sodium Chloride 1,000 ML IVC SCH (13:30)
[2018-11-03] MEDS ORDERED: Dextrose Gel 15 GM/37.5 ML TUBE PO PRN ×2 (13:48)
[2018-11-03] MEDS ORDERED: D5% in Water 1,000 ML IVC PRN (13:48)
[2018-11-03] MEDS ORDERED: *HR* Dextrose 50 % in Water (Syg) 50 ML SYRINGE IVP PRN (13:48)
--- NOTE | 2018-11-03 14:22 | Electrocardiograph Report ---
[address] [address] Test Date: 2018-11-03 Pat Name: Elmer Jones Department: EXAM4 Room: 3A Gender: M [employer] Ad[employer]: : 1965 Requested By: Carlos Davison Order Number: [id number] Reading MD: Yg Jaime Measurements Intervals Max Rate: 110 P: 78 CO: 192 QRS: 104 QRSD: 93 T: 49 QT: 319 QTc: 432 Interpretive Statements Sinus tachycardia Electronically Signed On 11-03-2018 14:21:00 EDT by Yg Jaime
[2018-11-03] MEDS: Clindamycin 600 MG/50 ML 600 MG/50 ML IV.SOLN IVPB SCH ×3 (15:47→23:08)
[2018-11-03] MEDS: *HR* Heparin 5,000 UNIT/ML VIAL SQ SCH (17:28)
[2018-11-03] MEDS: Insulin LISPRO 300 UNITS/3 ML VIAL SQ SCH ×2 (17:29→20:07)
[2018-11-03] MEDS ORDERED: Piperacillin/Tazobactam 3.375 GM VIAL ONE (19:49)
[2018-11-03] MEDS: Piperacillin/Tazobactam 3.375 GM in 0.9 % Sodium Chloride Mini Bag 100 ML IVPB SCH (19:52)
[2018-11-03 20:58] LABS: Estimated Average Glucose 229 mg/dl
[2018-11-04] MEDS: Piperacillin/Tazobactam 3.375 GM in 0.9 % Sodium Chloride Mini Bag 100 ML IVPB SCH ×3 (02:04→20:32)
[2018-11-04] MEDS: Clindamycin 600 MG/50 ML 600 MG/50 ML IV.SOLN IVPB SCH ×3 (05:09→17:22)
[2018-11-04] MEDS: *HR* Heparin 5,000 UNIT/ML VIAL SQ SCH ×2 (05:09→17:24)
[2018-11-04 06:31] LABS: Basophils % 0.3 %; Eosinophils # 0.2 K/mcL (0.0-0.6); Eosinophils % 1.5 %; Hematocrit 25.9 % (37.5-50.1); Hemoglobin 7.7 g/dL (12.9-16.9); Immature Granulocytes % 0.4 % (0-4); Lymphocytes # 1.2 K/mcL (0.6-4.6); Lymphocytes % 8.4 %; Mean Corpuscular HGB Conc 29.7 g/dL (31.6-35.5); Mean Corpuscular Hemoglobin 26.2 pg (28.0-33.3); Mean Corpuscular Volume 88.1 fL (83.0-100.0); Mean Platelet Volume 11.6 fL (9.4-12.4); Monocytes # 1.2 K/mcL (0.0-1.3); Monocytes % 8.4 %; Neutrophils # 11.8 K/mcL (1.6-8.9); Platelet Count 228 K/mcL (140-400); Red Blood Count 2.94 M/mcL (4.19-5.50); Red Cell Distribution Width 15.3 % (11.5-14.5); White Blood Count 14.5 K/mcL (4.3-11.1)
[2018-11-04 06:38] LABS: INR 2.4; Prothrombin Time 26.8 Seconds (9.4-12.1)
[2018-11-04 06:41] LABS: Activated Partial Thrombo Time 41.3 Seconds (26.0-36.0)
[2018-11-04 06:58] LABS: Albumin 3.3 g/dL (3.5-5.7); Albumin/Globulin Ratio 1.2 (1.1-2.2); Bilirubin,Total 0.5 mg/dL (0.3-1.0); Calcium 8.3 mg/dL (8.6-10.3); Chol/HDL Ratio 2.7 (0-4.9); Globulin 2.8 g/dL (2.4-3.5); Magnesium 1.6 mg/dL (1.6-2.6); Phosphorous 3.2 mg/dL (2.7-4.5); Potassium 4.6 mEq/L (3.5-5.1); Total Protein 6.1 g/dL (6.4-8.9)
[2018-11-04] MEDS: amLODIPine 5 MG TABLET PO SCH (08:32)
[2018-11-04] MEDS: Insulin LISPRO 300 UNITS/3 ML VIAL SQ SCH ×4 (08:32→20:47)
[2018-11-04] MEDS: Cholecalciferol (D-3) 1,000 UNIT TABLET PO SCH (08:32)
--- NOTE | 2018-11-04 08:39 | Internal Med Progress Note ---
Hospitalist Progress Note - Encounter Date of Encounter: 11/04/18 Time of Encounter: 08:00 - Subjective Interval History: No acute events overnight - Exam Vitals: Temp Pulse Resp BP Pulse Ox 98.3 F 100 16 133/61 96 11/04/18 06:26 11/04/18 06:26 11/04/18 06:26 11/04/18 06:26 11/04/18 06:26 Exam: General appearance: Present: A&O X 3, no acute distress. Morbidly obese Head exam: Present: normocephalic Respiratory exam: Present: CTAB. Absent: accessory muscle use, rales, rhonchi, wheezes Cardiovascular exam: Present: RRR, +S1, +S2. Absent: diastolic murmur, gallop, rubs, systolic murmur GI/Abdominal exam: Soft, NT, ND, +BS Extremities exam: severe left lowe extremity warmth and erythema Neurological exam: Present: alert, oriented X3, no focal deficits. Absent: altered - Assessment and Plan (1) Sepsis Current Visit: Yes Status: Acute Assessment and Plan: Pt came in with left lowere extremity swelling and severe warmth up to the thigh Has sepsis 2/2 to cellultitis with fever and leukocytosis Continue zosyn and clindamycin for MRSA coverage. Cultures pending . ID consulted (2) Cellulitis of left thigh Current Visit: Yes Status: Acute Assessment and Plan: Continue zosyn and clindamycin Follow cultures (3) AF (atrial fibrillation) Current Visit: Yes Status: Chronic Assessment and Plan: Continue on coreg and coumadin (4) KELSY (acute kidney injury) Current Visit: Yes Status: Acute Assessment and Plan: Continue IV fluids, avoid nephrotoxins (5) CHF (congestive heart failure) Current Visit: Yes Status: Chronic Assessment and Plan: No acute exacerbation of chronic diastolic CHF. Resume diuretics as tolerated (6) Diabetes mellitus type 2 in obese Current Visit: Yes Status: Acute Assessment and Plan: we will start insulin sliding scale with moderate coverage. (7) PAD (peripheral artery disease) Current Visit: Yes Status: Chronic Assessment and Plan: Continue pentoxifylline (8) Anemia in chronic kidney disease Current Visit: Yes Status: Acute Assessment and Plan: anemia most likely secondary to chronic kidney disease, monitor hemglobin Transfuse to keep hgb > 7 DVT Prophylaxis: Heparin sc - Time Spent with Patient Total time spent is greater than 50% in coordination of care (as documented) at patient's floor/unit and/or counseling patient: Internal Medicine: Result - Labs CBC & Chem 7: 11/04/18 05:01 11/04/18 05:01 Labs: Short CBC 11/04/18 Range/Units 05:01 WBC 14.5 H (4.3-11.1) K/mcL Hgb 7.7 L (12.9-16.9) g/dL Hct 25.9 L (37.5-50.1) % Plt Count 228 (140-400) K/mcL Neutrophils # 11.8 H (1.6-8.9) K/mcL BMP 11/04/18 05:01 Sodium 141 Potassium 4.6 Chloride 108 H Carbon Dioxide 26 BUN 22 H Creatinine 1.53 H Glucose 225 H Calcium 8.3 L Liver Function 11/04/18 Range/Units 05:01 Total Bilirubin 0.5 (0.3-1.0) mg/dL AST 8 L (13-39) Units/L ALT 8 (7-52) Units/L Alkaline Phosphatase 72 (34-104) Units/L Albumin 3.3 L (3.5-5.7) g/dL - ABG Interpretation ABG results: PT/INR, D-dimer PT 26.8 Seconds (9.4-12.1) H 11/04/18 05:01 Consult Discharge Plan - Plan Referrals: Jaime Paula MD [Primary Care Provider] - (1) Sepsis Qualifiers: Sepsis type: sepsis due to unspecified organism Qualified Code(s): A41.9 - S epsis, unspecified organism (3) AF (atrial fibrillation) Qualifiers: Atrial fibrillation type: chronic Qualified Code(s): I48.2 - Chronic atrial fibrillation (5) CHF (congestive heart failure) Qualifiers: Heart failure type: unspecified Heart failure chronicity: chronic Qualified Code(s): I50.9 - Heart failure, unspecified
[2018-11-04] MEDS ORDERED: Furosemide 40 MG TABLET PO SCH (09:00)
[2018-11-04] MEDS: 0.9 % Sodium Chloride 1,000 ML IVC SCH (12:26)
[2018-11-05] MEDS: Piperacillin/Tazobactam 3.375 GM in 0.9 % Sodium Chloride Mini Bag 100 ML IVPB SCH ×3 (02:45→19:08)
[2018-11-05] MEDS: *HR* Heparin 5,000 UNIT/ML VIAL SQ SCH ×2 (05:41→18:20)
[2018-11-05] MEDS: Clindamycin 600 MG/50 ML 600 MG/50 ML IV.SOLN IVPB SCH ×5 (05:41→23:38)
[2018-11-05 06:31] LABS: Basophils % 0.3 %; Eosinophils # 0.3 K/mcL (0.0-0.6); Eosinophils % 2.7 %; Hematocrit 24.2 % (37.5-50.1); Hemoglobin 7.1 g/dL (12.9-16.9); Immature Granulocytes % 0.3 % (0-4); Lymphocytes # 1.5 K/mcL (0.6-4.6); Lymphocytes % 14.9 %; Mean Corpuscular HGB Conc 29.3 g/dL (31.6-35.5); Mean Corpuscular Hemoglobin 26.1 pg (28.0-33.3); Mean Platelet Volume 11.2 fL (9.4-12.4); Monocytes # 1.1 K/mcL (0.0-1.3); Monocytes % 10.7 %; Neutrophils # 7.2 K/mcL (1.6-8.9); Platelet Count 200 K/mcL (140-400); Red Blood Count 2.72 M/mcL (4.19-5.50); Red Cell Distribution Width 15.5 % (11.5-14.5); Segmented Neutrophils % 71.1 %; White Blood Count 10.2 K/mcL (4.3-11.1)
[2018-11-05 06:48] LABS: Calcium 8.3 mg/dL (8.6-10.3); Magnesium 1.8 mg/dL (1.6-2.6); Phosphorous 4.1 mg/dL (2.7-4.5); Potassium 4.5 mEq/L (3.5-5.1)
--- NOTE | 2018-11-05 08:51 | Infectious Disease Consult ---
Infectious Disease-Consult - Encounter Date/Time Date of Encounter: 11/05/18 Time of Encounter: 09:20 - Data of Consult Patient: known to practice within the last 3 years Reason for consult: Sepsis, Left leg cellulitis Consult date: 11/05/18 Requesting Physician: Liyah Cage Primary Care Provider: Jaime Paula MD - HPI HPI: Mr. Jones is 52 a year-old gentleman who is admitted on 11/03/18 for cellulitis o f the left thigh. Infectious disease was consulted today, 11/05/18, for sepsis, left leg cellulitis. In short, Mr. Jones is a 52-year-old gentleman with history of IBD is mellitus, diabetic foot ulcers of the right foot, CK D, venous stasis which is chronic, CHF and multiple antibiotic allergies who presented to [facility] with 1 or 2 day history of fever and malaise, and pain in the left thigh. He states that he was laying on his left side and when he went to sit up he noticed that his left thigh was hurting worse than it typically does and there was a redness which traveled from his left thigh up to his groin. The patient states that he always does typically have pain there and there is chronic swelling and lymphedema, however it seemed to be a little bit worse than it usually is. He said there is also increased warmth there. In addition this, the patient said that he seemed warm all over, and he had a fever. This is atypical for him and he was very concerned. He does note that he felt that this started with a head cold about a day before, however it seemed to clear up on its own. Upon asking, he denies any shortness of breath, neck stiffness, purpuric rash. Significantly, the patient does state that he has recently been seen by hematology and oncology due to lymph nodes which have been found in his abdomen incidentally. 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 At this time, he says that the pain has largely resolved, and he has no acute complaints. In the ED, the patient had a CT of his left lower extremity which was significant for nonspecific subcutaneous edema and skin thickening which could be significant for cellulitis. The patient also had a WBC of 13.8, and he was febrile with a temperature of 101.3, heart rate 110. He had blood cultures on 11/03/18 which have demonstrated no growth to date. Wound cultures of his right foot in the past have demonstrated Klebsiella pneumonia, corynebacterium and Klebsiella oxytoca, as well as MRSA. The patient has also had positive blood cultures in the past. All of these cultures have been from 2018. The patient was started on Zosyn and clindamycin and has since felt better. His review of systems is otherwise largely negative at this time. - ROS Review of Systems: Constitutional: Admits to fevers, chills, generalized fatigue. Head/Neck: Denies VELÁZQUEZ, neck stiffness EENT: Denies vision changes/blurriness. Admits to rhinorrhea, congestion which resolved on its own prior to arrival CVS: Denies chest pain, palpitations, NATH, orthopnea, edema, PND Pulm: Denies SOB, cough, sputum, hemoptysis, wheezing GI: Denies abdominal pain, nausea, vomiting, diarrhea, constipation, melena, hematemasis : Denies dysuria, increased frequency, urgency, hematuria Heme: Denies ease of bleeding or bruising MSK: Denies joint pain, limited ROM Skin: Admits to generalized edema of the lower extremities bilaterally however worsened swelling on the left medial thigh and redness. Neuro: Denies VELÁZQUEZ, paresthesias, focal deficits, ataxia - Results CBC & Chem 7: 11/06/18 03:25 11/06/18 03:25 - Exam Vitals: Temp Pulse Resp BP Pulse Ox 98.2 F 88 14 126/77 93 11/05/18 07:17 11/05/18 07:17 11/05/18 07:17 11/05/18 07:17 11/05/18 07:17 Exam: Gen: Vitals noted. No acute distress. Eyes: anicteric sclerae, moist conjunctivae; no lid-lag; Pupils equal and reactive to light HENT: Atraumatic; oropharynx clear with moist mucous membranes and no mucosal ulcerations; normal hard and soft palate Neck: Trachea midline; supple, no thyromegaly or lymphadenopathy Cardiac: RRR, no murmur, +S1/S2 Pulmonary: CTA bilaterally, no wheezes, rales or rhonchi, equal chest expansion Abdomen: soft, nontender, no guarding. No masses or hepatosplenomegaly MSK: ROM intact, no joint swelling noted Extremities: B/l 2-3+ LE edema, L>R, extending up the leg to the thigh. Keratinized skin b/l. Healed DM ulcer on right foot. Charcot foot present s/p repair. Redness noted on left lower extremity which appears to be secondary to stasis on distal LE, however hyperemia with tenderness to palpation on medial thigh. Skin: Normal temperature, turgor and texture; no rash, ulcers or subcutaneous nodules. No rash present on groin, however malodorous smell emanting Neuro: moves all extremities, no focal deficits. Psych: Appropriate mood and behavior. A&Ox3 Acetaminophen [Tylenol] 500 mg PO HS 12/02/16 [History] Carvedilol Phosphate [Coreg Cr] 80 mg PO QAM 12/02/16 [History] Furosemide [Lasix] 40 mg PO DAILY 12/02/16 [History] Insulin Glargine,Hum.rec.anlog [Lantus Solostar] 46 units SQ BID 12/02/16 [History] Pentoxifylline 400 mg PO BID 12/02/16 [History] Pramipexole [Mirapex] 0.25 mg PO BID 12/02/16 [History] Albuterol Sulfate [Ventolin Hfa] 2 puff IH Q4H PRN 01/05/18 [History] Atorvastatin [Lipitor] 40 mg PO HS 01/05/18 [History] Insulin LISPRO [HumaLOG] 10 - 12 units SQ TIDWM 01/05/18 [History] Lansoprazole [Prevacid] 30 mg PO QAM 01/05/18 [History] Warfarin Sodium 8 mg PO SUMOTUWETHSA 10/01/18 [History] metFORMIN [Glucophage] 500 mg PO BIDWM #60 tablet 10/02/18 [Rx] Cholecalciferol (D-3) [Vitamin D] 1,000 unit PO DAILY 10/25/18 [History] Lisinopril [Zestril] 10 mg PO DAILY 10/25/18 [History] amLODIPine [Norvasc] 5 mg PO DAILY 10/25/18 [History] Warfarin [Coumadin] 10 mg PO FR 11/04/18 [History] Allergy/AdvReac Type Severity Reaction Status Date / Time vancomycin Allergy Intermediate Itching Verified 10/25/18 11:32 latex Allergy Rash Verified 10/25/18 11:32 peanut Allergy Anaphylaxis Verified 10/25/18 11:32 tree nut Allergy Anaphylaxis Verified 10/25/18 11:32 cephalexin [From Keflex] AdvReac Rash Verified 10/25/18 11:32 levofloxacin AdvReac Rash Verified 10/25/18 11:32 Sulfa (Sulfonamide AdvReac Rash Verified 10/25/18 11:32 Antibiotics) - Assessment and Plan (1) Sepsis Current Visit: Yes Status: Resolved Sepsis secondary to cellulitis of the left lower extremity. Resolved. SIRS Criteria: WBC 13.8, T101.6, HR 110, source cellulitis. Presented with ac wen kidney injury as well Presented with pain, redness, swelling of the left lower extremity, medial thigh Does have a history of chronic lymphedema, worsened at this time erythema and warmth CT LE 11/03/18 demonstrates subcutaneous edema and skin thickening from the distal left thigh to the left leg suggesting cellulitis, no obvious fluid collection Patient's infectious review of systems is otherwise negative despite "head cold" symptoms which have now resolved Cultures 11/03/18 blood cultures NGTD 2 03/01 right foot Klebsiella pneumonia 03/01 blood cultures corynebacterium 03/01 right foot Klebsiella oxytoca 12/30 right foot MRSA Antibiotic Zosyn Clindamycin Recommendation -We will continue clindamycin 600 mg every 6 hours, okay to transition to oral antibiotics on discharge. Total duration 7 days. Stop date 11/10/18 -Stop Zosyn on discharge -Recommend adequate glucose control, blood glucose 140-180 for proper healing -Recommend good by mouth fluid intake ID will sign off at this time. Thank you for involving us in the care of this patient, please call for further questions. Qualifiers: Sepsis type: sepsis due to unspecified organism Qualified Code(s): A41.9 - Sepsis, unspecified organism SNOMED Code(s): 34185978 (2) Cellulitis Current Visit: Yes Status: Acute Cellulitis of the left medial thigh, unknown organism Appears to be improving with Zosyn and clindamycin It is likely appropriate to switch the patient to oral antibiotics at discharge See plan above Qualifiers: Site of cellulitis: extremity Site of cellulitis of extremity: lower extremity Laterality: left Qualified Code(s): L03.116 - Cellulitis of left lower limb SNOMED Code(s): 954577785 (3) Viral syndrome Current Visit: Yes Status: Acute Patient had a respiratory infection panel per primary team, although he was not complaining of any symptoms during my exam Was positive for enterovirus/rhinovirus, Adenovirus If the patient develops symptoms, recommend oral hydration, cough drops, OTC Corcidin HBP decongestant PRN, follow-up with PCP SNOMED Code(s): 22326338 (4) Diabetes mellitus type 2 in obese Current Visit: Yes Status: Acute Maintain adequate control of blood glucose, recommend 140-180 if possible SNOMED Code(s): 96652563 (5) Venous stasis Current Visit: Yes Status: Chronic Chronic SNOMED Code(s): 76711860 (6) PAD (peripheral artery disease) Current Visit: Yes Status: Chronic Chronic, with venous stasis SNOMED Code(s): 893040773, 203789764 Past Med Surg Social Fam HX - Past Medical History Medical history: asthma, atrial fibrillation, CHF, DVT, diabetes, hyperlipidemia, hypertension, pulmonary embolus, renal disease, venous stasis, other Additional medical history: Charcot's foot, Venous insufficiency, morbid obesity Psychiatric history: no psych history - Past Surgical History Surgical History: herniorrhaphy Additional surgical history: right foot surgery - Social History Smoking Status: Never smoker Smokeless Tobacco Status: No Alcohol use: none Drug use: none - Family History Father Family Member Ethnicity: Non- Living Status: Still Living Hx Family Cardiac Disorders: Yes Hx Family Respiratory Disorders: No Hx Family Cancer: No Hx Family GI Disorders: No Hx Family Endocrine Disorder: No Hx Family Neuromuscular Disorders: No Hx Family Neurologic Disorders: No Hx Family HEENT Disorders: No Hx Family Autoimmune Disorders: No Mother Adopted: No Family Member Ethnicity: Non- Living Status: Hx Family Cardiac Disorders: Yes Hx Family Respiratory Disorders: No Hx Family Cancer: No Hx Family GI Disorders: No Hx Family Endocrine Disorder: Yes (DM) Hx Family Neuromuscular Disorders: No Hx Family Neurologic Disorders: Yes (Alzheimer's disease) Hx Family HEENT Disorders: No Hx Family Autoimmune Disorders: No Brother Family Member Ethnicity: Non- Living Status: Still Living Hx Family Cardiac Disorders: Yes Hx Family Respiratory Disorders: Yes Hx Family Cancer: No Hx Family GI Disorders: No Hx Family Endocrine Disorder: No Hx Family Neuromuscular Disorders: No Hx Family Neurologic Disorders: No Hx Family HEENT Disorders: No Hx Family Autoimmune Disorders: No Consult Discharge Plan - Plan Referrals: Jaime Paula MD [Primary Care Provider] - - Attending Attestation I examined this patient and my medical decision-making was reviewed with the Resident Physician. I agree with the documented findings, disposition and treatment plan as described except to the extent set forth below. This is an addendum to original report dictated by resident physician. Please refer to resident's note for full detail. Agree with the resident's history of present illness, review of system and physical exam findings. Assessment and plan: 1.Sepsis secondary to cellulitis left lower leg 2.Viral syndrome with adenovirus 3.Diabetes mellitus type 2 4.Morbid obesity BMI 52 5.Chronic venous stasis Recommendations -We will continue clindamycin 600 mg every 6 hours, okay to transition to oral antibiotics on discharge. Total duration 7 days. Stop date 11/10/18 -Stop Zosyn on discharge -Place patient in droplet precautions
[2018-11-05] MEDS: amLODIPine 5 MG TABLET PO SCH (09:39)
[2018-11-05] MEDS: Insulin LISPRO 300 UNITS/3 ML VIAL SQ SCH ×4 (09:39→21:08)
[2018-11-05] MEDS: Cholecalciferol (D-3) 1,000 UNIT TABLET PO SCH (09:39)
[2018-11-05] MEDS ORDERED: 0.9 % Sodium Chloride 250 ML ONE (11:50)
--- NOTE | 2018-11-05 13:28 | Internal Med Progress Note ---
Hospitalist Progress Note - Encounter Date of Encounter: 11/05/18 Time of Encounter: 13:00 - Subjective Interval History: No acute events overnight - Exam Vitals: Temp Pulse Resp BP Pulse Ox 98.3 F 84 16 120/72 94 11/05/18 12:15 11/05/18 12:15 11/05/18 12:15 11/05/18 12:15 11/05/18 11:43 Exam: General appearance: Present: A&O X 3, no acute distress. Morbidly obese Head exam: Present: normocephalic Respiratory exam: Present: CTAB. Absent: accessory muscle use, rales, rhonchi, wheezes Cardiovascular exam: Present: RRR, +S1, +S2. Absent: diastolic murmur, gallop, rubs, systolic murmur GI/Abdominal exam: Soft, NT, ND, +BS Extremities exam: severe left lowe extremity warmth and erythema Neurological exam: Present: alert, oriented X3, no focal deficits. Absent: altered - Assessment and Plan (1) Sepsis Current Visit: Yes Status: Acute Assessment and Plan: Pt came in with left lowere extremity swelling and severe warmth up to the thigh Has sepsis 2/2 to cellultitis with fever and leukocytosis Continue zosyn and clindamycin for MRSA coverage. Cultures pending . ID consulted for antibiotic recs (2) Cellulitis of left thigh Current Visit: Yes Status: Acute Assessment and Plan: Continue zosyn and clindamycin Follow cultures (3) Anemia in chronic kidney disease Current Visit: Yes Status: Acute Assessment and Plan: anemia most likely secondary to chronic kidney disease vs GI bleed Hemoglobin was 7.1 this am. Will transfuse 1 unit PRBC today GI consulted. Patient does not report dark stools (4) AF (atrial fibrillation) Current Visit: Yes Status: Chronic Assessment and Plan: Continue on coreg and coumadin (5) KELSY (acute kidney injury) Current Visit: Yes Status: Acute Assessment and Plan: Pt has KELSY on CKD stage 2. Continue IV fluids, avoid nephrotoxins (6) CHF (congestive heart failure) Current Visit: Yes Status: Chronic Assessment and Plan: No acute exacerbation of chronic diastolic CHF. Resume diuretics as tolerated (7) Diabetes mellitus type 2 in obese Current Visit: Yes Status: Acute Assessment and Plan: we will start insulin sliding scale with moderate coverage. (8) PAD (peripheral artery disease) Current Visit: Yes Status: Chronic Assessment and Plan: Continue pentoxifylline DVT Prophylaxis: Heparin sc - Time Spent with Patient Total time spent is greater than 50% in coordination of care (as documented) at patient's floor/unit and/or counseling patient: Internal Medicine: Result - Labs CBC & Chem 7: 11/05/18 06:08 11/05/18 06:08 Labs: Short CBC 11/05/18 Range/Units 06:08 WBC 10.2 (4.3-11.1) K/mcL Hgb 7.1 L (12.9-16.9) g/dL Hct 24.2 L (37.5-50.1) % Plt Count 200 (140-400) K/mcL Neutrophils # 7.2 (1.6-8.9) K/mcL BMP 11/05/18 06:08 Sodium 141 Potassium 4.5 Chloride 107 Carbon Dioxide 24 BUN 21 H Creatinine 1.66 H Glucose 188 H Calcium 8.3 L - ABG Interpretation ABG results: PT/INR, D-dimer PT 26.8 Seconds (9.4-12.1) H 11/04/18 05:01 - Impressions Impressions Lower Extremity CT 11/03/18 05:38 IMPRESSION: Nonspecific subcutaneous edema and skin thickening from the distal left thigh to the left lower leg suggesting cellulitis in the proper clinical setting. No evidence of abscess or deep soft tissue infection. No acute bone or joint abnormality. Moderate tricompartmental osteoarthritis of the left knee. D/ / 11/03/2018 07:50:20 Sam Chandra MD / laurence Interpreting Provider: Sam Chandra MD Consult Discharge Plan - Plan Referrals: Jaime Paula MD [Primary Care Provider] - (1) Sepsis Qualifiers: Sepsis type: sepsis due to unspecified organism Qualified Code(s): A41.9 - Sepsis, unspecified organism (4) AF (atrial fibrillation) Qualifiers: Atrial fibrillation type: chronic Qualified Code(s): I48.2 - Chronic atrial fibrillation (6) CHF (congestive heart failure) Qualifiers: Heart failure type: unspecified Heart failure chronicity: chronic Qualified Code(s): I50.9 - Heart failure, unspecified
[2018-11-05 14:14] LABS: Adenovirus DETECTED (Not Detect); Bordetella Pertussis Not Detected (Not Detect); Chlamydophila pneumoniae Not Detected (Not Detect); Coronavirus 229E Not Detected (Not Detect); Coronavirus HKU1 Not Detected (Not Detect); Coronavirus NL63 Not Detected (Not Detect); Coronavirus OC43 Not Detected (Not Detect); Human Metapneumovirus Not Detected (Not Detect); Human Rhinovirus/Enterovirus DETECTED (Not Detect); Influenza A Subtype 2009 H1 Not Detected (Not Detect); Influenza A Untypeable Not Detected (Not Detect); Influenza B Not Detected (Not Detect); Mycoplasma pneumoniae Not Detected (Not Detect); Parainfluenza Virus 1 Not Detected (Not Detect); Parainfluenza Virus 2 Not Detected (Not Detect); Parainfluenza Virus 3 Not Detected (Not Detect); Parainfluenza Virus 4 Not Detected (Not Detect); Respiratory Syncytial Virus Not Detected (Not Detect)
--- NOTE | 2018-11-05 14:38 | Gastroenterology Consult Note ---
<Karolyn Ramires - Last Filed: 11/05/18 14:35> Date of Encounter: 11/05/18 Time of Encounter: 10:15 - Assessment and plan (1) Anemia Current Visit: Yes Status: Acute Assessment and plan: 2-year-old male who presented with bilateral lotion we cellulitis. He has progressive anemia since admission. He denies any rectal bleeding.stool for occult blood was ordered. Will likely need EGD and colonoscopy but patient had regular diet this morning we will discuss with Dr. Patel. Qualifiers: Anemia type: iron deficiency Iron deficiency anemia type: unspecified iron deficiency Qualified Code(s): D50.9 - Iron deficiency anemia, unspecified (2) Cellulitis Current Visit: No Status: Acute Qualifiers: Site of cellulitis: extremity Site of cellulitis of extremity: lower extremity Laterality: unspecified laterality Qualified Code(s): L03.119 - Cellulitis of unspecified part of limb - Time Spent With Patient Total time spent is greater than 50% in coordination of care (as documented) at patient's floor/unit and/or counseling patient: GI History of Present Illness - Data of Consult Patient: new to practice Consult date: 11/05/18 Requesting Physician: Liyah Cage - Consult Narrative Reason for consult: anemia History of present illness: Mr. Jones is a 52 year old male asthma, atrial fibrillation, CHF, DVT, diabetes, hyperlipidemia, hypertension, pulmonary embolus, renal disease, and venous stasis. He presented to the ER with erythema, tenderness of the left medial thigh. On arrival the patient has fever and was tachycardiac however his blood pressure was normal. The patient was evaluated by the ER staff and laboratory data revealed leukocytosis of 13.8, he was treated with fluid antibiotics including clindamycin and Zosyn due to several antibiotics allergies. CT scan of the left leg revealed evidence of cellulitis. Studies revealed no evidence of acute DVT. The patient was admitted for further evaluation and management of left lower extremity cellulitis. hemoglobin was 8.7 on admission has dropped to 7.1. He denies any abdominal pain, nausea or vomiting. He reports occasional diarrhea. He denies any melena or hematochezia. procedures: egd denies Colonoscopy 2018 at [facility] per pt was normal anticoagulants: coumadin Past Med Surg Social Fam HX - Past Medical History Medical history: asthma, atrial fibrillation, CHF, DVT, diabetes, hyperlipide loly, hypertension, pulmonary embolus, renal disease, venous stasis, other Additional medical history: Charcot's foot, Venous insufficiency, morbid obesity Psychiatric history: no psych history - Past Surgical History Surgical History: herniorrhaphy Additional surgical history: right foot surgery - Social History Smoking Status: Never smoker Smokeless Tobacco Status: No Alcohol use: none Drug use: none - Family History Father Family Member Ethnicity: Non- Living Status: Still Living Hx Family Cardiac Disorders: Yes Hx Family Respiratory Disorders: No Hx Family Cancer: No Hx Family GI Disorders: No Hx Family Endocrine Disorder: No Hx Family Neuromuscular Disorders: No Hx Family Neurologic Disorders: No Hx Family HEENT Disorders: No Hx Family Autoimmune Disorders: No Mother Adopted: No Family Member Ethnicity: Non- Living Status: Hx Family Cardiac Disorders: Yes Hx Family Respiratory Disorders: No Hx Family Cancer: No Hx Family GI Disorders: No Hx Family Endocrine Disorder: Yes (DM) Hx Family Neuromuscular Disorders: No Hx Family Neurologic Disorders: Yes (Alzheimer's disease) Hx Family HEENT Disorders: No Hx Family Autoimmune Disorders: No Brother Family Member Ethnicity: Non- Living Status: Still Living Hx Family Cardiac Disorders: Yes Hx Family Respiratory Disorders: Yes Hx Family Cancer: No Hx Family GI Disorders: No Hx Family Endocrine Disorder: No Hx Family Neuromuscular Disorders: No Hx Family Neurologic Disorders: No Hx Family HEENT Disorders: No Hx Family Autoimmune Disorders: No Review of Systems: GI: as per [facility] GENERAL: denies fever, has some chills EYES: denies yellow discoloration ENT: denies pain with swallowing or difficulty swallowing CARDIO: denies chest pain, palpitations RESP: Shortness of breath with exertion : denies change in color of urine NEURO: weakness HEME: Denies any bruising MS: chronic joint pain, joint swelling or back pain. DERM: see hpi PSYCH: Denies history of anxiety or depression - Constitutional Vitals: Temp Pulse Resp BP Pulse Ox 98.3 F 84 16 120/72 94 11/05/18 12:15 11/05/18 12:15 11/05/18 12:15 11/05/18 12:15 11/05/18 11:43 Exam: CONSTITUTIONAL:alert, no acute distress.HEAD:normocephalic.EYES:no jaundice.NECK:no obvious swelling.HEART:regular rate and rhythm, no murmurs.LUNGS:bilateral fair air entry.ABDOMEN:non distended, soft, non tender, no masses palpable, no organomegaly, obese.RECTAL EXAM:Deferred.EXTREMITIES:2+ ble edema, red/purple discoloration to lower legs.SKIN:allor noted, no stigmata of chronic liver disease.NEUROLOGIC:no obvious focal defect. Results - Labs CBC & Chem 7: 11/05/18 06:08 11/05/18 06:08 Labs: Last Result 11/05/18 06:08 Calcium 8.3 L Entire Visit 11/05/18 06:08 Hgb 7.1 L Hct 24.2 L - ABG ABG results: PT/INR, D-dimer PT 26.8 Seconds (9.4-12.1) H 11/04/18 05:01 - Impressions Impressions Lower Extremity CT 11/03/18 05:38 IMPRESSION: Nonspecific subcutaneous edema and skin thickening from the distal left thigh to the left lower leg suggesting cellulitis in the proper clinical setting. No evidence of abscess or deep soft tissue infection. No acute bone or joint abnormality. Moderate tricompartmental osteoarthritis of the left knee. D/ / 11/03/2018 07:50:20 Sam Chandra MD / laurence Interpreting Provider: Sam Chandra MD Chest X-Ray 11/05/18 14:14 IMPRESSION: No acute process. D/ / Maksim Kramer MD / Maksim Kramer MD Interpreting Provider: Maksim Kramer MD Consult Discharge Plan - Plan Referrals: Jaime Paula MD [Primary Care Provider] - <Agustin Patel - Last Filed: 11/07/18 05:26> Date of Encounter: 11/05/18 - Time Spent With Patient Total time spent is greater than 50% in coordination of care (as documented) at patient's floor/unit and/or counseling patient: GI History of Present Illness - Data of Consult Requesting Physician: Liyah Cage - Consult Narrative History of present illness: Mr. Jones is a 52 year old male - Constitutional Vitals: Temp Pulse Resp BP Pulse Ox 98.8 F 84 16 157/70 95 11/07/18 04:28 11/07/18 04:28 11/07/18 04:28 11/07/18 04:28 11/07/18 04:28 Results - Labs CBC & Chem 7: 11/06/18 03:25 11/06/18 03:25 - ABG ABG results: PT/INR, D-dimer PT 22.2 Seconds (9.4-12.1) H 11/06/18 08:45 - Attending Attestation Patient admitted with cellulitis and iron deficiency anemia. Review old records when available. Plan EGD and colonoscopy. I have personally performed a face to face evaluation on this patient. I have reviewed and agree with the care plan. History and Exam by me shows:
[2018-11-05] MEDS: Furosemide 40 MG/4 ML VIAL IVP SCH ×2 (15:39→18:08)
[2018-11-05 16:16] LABS: Prothrombin Time 22.3 Seconds (9.4-12.1)
[2018-11-05] MEDS ORDERED: SODIUM CHLORIDE/NAHCO3/KCL/PEG 4,000 ML SOLN.RECON PO ONE (17:00)
--- NOTE | 2018-11-05 17:53 | Anesthesia Evaluation PreOp ---
Date of Encounter: 11/05/18 Time of Encounter: 17:51 - Past History Planned Operation: EGD/Colonoscopy Cardiac History: CHF, HTN, Hyperlipidemia, Arrhythmia (AFib), Other (DVT, PE, Anemia) Pulmonary History: Denies Any Significant HX HOME HEALTH CARE RESPIRATORY THERAPIST History: Denies Any Significant HX Other Medical History: Renal (CKD Stage 3), Diabetes Type II, Other (SMO BMI- 52.6) Anesthesia History: No Prior Anesthetic Complications, Past Anesthesia (R-Foot Bone Bx 12/30, umbilical hernia) Alcohol Use: none Drug use: none Medications and Allergies Acetaminophen [Tylenol] 500 mg PO HS 12/02/16 [History] Carvedilol Phosphate [Coreg Cr] 80 mg PO QAM 12/02/16 [History] Furosemide [Lasix] 40 mg PO DAILY 12/02/16 [History] Insulin Glargine,Hum.rec.anlog [Lantus Solostar] 46 units SQ BID 12/02/16 [History] Pentoxifylline 400 mg PO BID 12/02/16 [History] Pramipexole [Mirapex] 0.25 mg PO BID 12/02/16 [History] Albuterol Sulfate [Ventolin Hfa] 2 puff IH Q4H PRN 01/05/18 [History] Atorvastatin [Lipitor] 40 mg PO HS 01/05/18 [History] Insulin LISPRO [HumaLOG] 10 - 12 units SQ TIDWM 01/05/18 [History] Lansoprazole [Prevacid] 30 mg PO QAM 01/05/18 [History] Warfarin Sodium 8 mg PO SUMOTUWETHSA 10/01/18 [History] metFORMIN [Glucophage] 500 mg PO BIDWM #60 tablet 10/02/18 [Rx] Cholecalciferol (D-3) [Vitamin D] 1,000 unit PO DAILY 10/25/18 [History] Lisinopril [Zestril] 10 mg PO DAILY 10/25/18 [History] amLODIPine [Norvasc] 5 mg PO DAILY 10/25/18 [History] Warfarin [Coumadin] 10 mg PO FR 11/04/18 [History] Allergy/AdvReac Type Severity Reaction Status Date / Time vancomycin Allergy Intermediate Itching Verified 10/25/18 11:32 latex Allergy Rash Verified 10/25/18 11:32 peanut Allergy Anaphylaxis Verified 10/25/18 11:32 tree nut Allergy Anaphylaxis Verified 10/25/18 11:32 cephalexin [From Keflex] AdvReac Rash Verified 10/25/18 11:32 levofloxacin AdvReac Rash Verified 10/25/18 11:32 Sulfa (Sulfonamide AdvReac Rash Verified 10/25/18 11:32 Antibiotics) - Meds/Allergy Pre-op Review Medications Reviewed: Yes Allergies Reviewed: Yes Beta Blockers on Current Med List: No Anesthesia Results - Labs 11/05/18 06:08 11/05/18 06:08 - Imaging EKG: report reviewed (Sinus tachycardia Electronically Signed On 11-03-2018 14:21:00 EDT by Yg Jaime) Anesthesia Exam Vital Signs/O2 Sat, Most Current Temp Pulse Resp BP Pulse Ox 98.5 F 87 18 135/76 93 11/05/18 15:45 11/05/18 15:45 11/05/18 15:45 11/05/18 15:45 11/05/18 15:45 - HEENT Pupil (Motor): Pupils equal, EOMI Mallampati: I Teeth: Edentulous Oral Opening: Greater than 3 - HOME HEALTH CARE RESPIRATORY THERAPIST LOC: Oriented HOME HEALTH CARE RESPIRATORY THERAPIST Motor: Normal RUE, Normal LUE, Normal RLE, Normal LLE, Normal Face HOME HEALTH CARE RESPIRATORY THERAPIST Sensory: Normal: RUE, LUE, RLE, LLE, Face - Cardiac Rhythm: Regular Murmur: None JVD: No Carotid Bruit: No - Pulmonary Breath Sounds: bilateral Clear Respiratory Effort: Symmetrical Anesthesia Assess/Plan ASA Score: 4 Level of consciousness: Cooperative Anesthetic Plan: General (Plan B), MAC (Plan A) Autologous Blood: Yes Monitoring Plan: Standard Monitors Recovery Plan: Other
[2018-11-06] MEDS: Piperacillin/Tazobactam 3.375 GM in 0.9 % Sodium Chloride Mini Bag 100 ML IVPB SCH ×3 (03:20→18:27)
[2018-11-06 03:50] LABS: Basophils % 0.4 %; Eosinophils # 0.4 K/mcL (0.0-0.6); Eosinophils % 3.2 %; Hematocrit 26.3 % (37.5-50.1); Hemoglobin 7.8 g/dL (12.9-16.9); Immature Granulocytes % 0.3 % (0-4); Lymphocytes # 1.3 K/mcL (0.6-4.6); Lymphocytes % 12.4 %; Mean Corpuscular HGB Conc 29.7 g/dL (31.6-35.5); Mean Corpuscular Hemoglobin 26.6 pg (28.0-33.3); Mean Corpuscular Volume 89.8 fL (83.0-100.0); Mean Platelet Volume 10.9 fL (9.4-12.4); Monocytes # 1.1 K/mcL (0.0-1.3); Platelet Count 208 K/mcL (140-400); Red Blood Count 2.93 M/mcL (4.19-5.50); Red Cell Distribution Width 15.1 % (11.5-14.5); Segmented Neutrophils % 73.7 %; White Blood Count 10.8 K/mcL (4.3-11.1)
[2018-11-06 04:04] LABS: Calcium 8.3 mg/dL (8.6-10.3); Magnesium 1.8 mg/dL (1.6-2.6); Potassium 4.2 mEq/L (3.5-5.1)
[2018-11-06] MEDS: Clindamycin 600 MG/50 ML 600 MG/50 ML IV.SOLN IVPB SCH ×3 (05:03→18:26)
[2018-11-06] MEDS: *HR* Heparin 5,000 UNIT/ML VIAL SQ SCH ×2 (05:03→18:27)
[2018-11-06] MEDS: Insulin LISPRO 300 UNITS/3 ML VIAL SQ SCH ×3 (07:47→16:25)
--- NOTE | 2018-11-06 08:48 | Internal Med Progress Note ---
Hospitalist Progress Note - Encounter Date of Encounter: 11/06/18 Time of Encounter: 08:40 - Subjective Interval History: No acute events overnight - Exam Vitals: Temp Pulse Resp BP Pulse Ox 98.8 F 84 14 151/73 95 11/06/18 08:00 11/06/18 08:00 11/06/18 08:00 11/06/18 08:00 11/06/18 08:00 Exam: General appearance: Present: A&O X 3, no acute distress. Morbidly obese Head exam: Present: normocephalic Respiratory exam: Present: CTAB. Absent: accessory muscle use, rales, rhonchi, wheezes Cardiovascular exam: Present: RRR, +S1, +S2. Absent: diastolic murmur, gallop, rubs, systolic murmur GI/Abdominal exam: Soft, NT, ND, +BS Extremities exam: severe left lowe extremity warmth and erythema Neurological exam: Present: alert, oriented X3, no focal deficits. Absent: altered - Assessment and Plan (1) Sepsis Current Visit: Yes Status: Acute Assessment and Plan: Pt came in with left lowere extremity swelling and severe warmth up to the thigh Has sepsis 2/2 to cellultitis with fever and leukocytosis Continue zosyn and clindamycin for MRSA coverage. Cultures pending . ID consulted for antibiotic recs (2) Cellulitis of left thigh Current Visit: Yes Status: Acute Assessment and Plan: Continue zosyn and clindamycin Follow cultures (3) Anemia in chronic kidney disease Current Visit: Yes Status: Acute Assessment and Plan: anemia most likely secondary to chronic kidney disease vs GI bleed with acute blood loss Hemoglobin was 7.8 this am after transfusion of 1 unit PRBC GI consulted and plan for colonscopy in am (4) AF (atrial fibrillation) Current Visit: Yes Status: Chronic Assessment and Plan: Continue on coreg and coumadin (5) KELSY (acute kidney injury) Current Visit: Yes Status: Acute Assessment and Plan: Pt has KELSY on CKD stage 2. Continue IV fluids, avoid nephrotoxins (6) CHF (congestive heart failure) Current Visit: Yes Status: Chronic Assessment and Plan: No acute exacerbation of chronic diastolic CHF. Resume diuretics as tolerated (7) Diabetes mellitus type 2 in obese Current Visit: Yes Status: Acute Assessment and Plan: we will start insulin sliding scale with moderate coverage. (8) Upper respiratory infection, viral Current Visit: Yes Status: Acute Assessment and Plan: Resp swab positive for adeno virus and entero virus. Supportive care (9) PAD (peripheral artery disease) Current Visit: Yes Status: Chronic Assessment and Plan: Continue pentoxifylline DVT Prophylaxis: Heparin sc - Time Spent with Patient Total time spent is greater than 50% in coordination of care (as documented) at patient's floor/unit and/or counseling patient: Internal Medicine: Result - Labs CBC & Chem 7: 11/06/18 03:25 11/06/18 03:25 Labs: Short CBC 11/06/18 Range/Units 03:25 WBC 10.8 (4.3-11.1) K/mcL Hgb 7.8 L (12.9-16.9) g/dL Hct 26.3 L (37.5-50.1) % Plt Count 208 (140-400) K/mcL Neutrophils # 8.0 (1.6-8.9) K/mcL BMP 11/06/18 03:25 Sodium 140 Potassium 4.2 Chloride 109 H Carbon Dioxide 24 BUN 20 Creatinine 1.65 H Glucose 183 H Calcium 8.3 L - ABG Interpretation ABG results: PT/INR, D-dimer PT 22.3 Seconds (9.4-12.1) H 11/05/18 15:50 - Impressions Impressions Lower Extremity CT 11/03/18 05:38 IMPRESSION: Nonspecific subcutaneous edema and skin thickening from the distal left thigh to the left lower leg suggesting cellulitis in the proper clinical setting. No evidence of abscess or deep soft tissue infection. No acute bone or joint abnormality. Moderate tricompartmental osteoarthritis of the left knee. D/ / 11/03/2018 07:50:20 Sam Chandra MD / bcarter Interpreting Provider: Sam Chandra MD Chest X-Ray 11/05/18 14:14 IMPRESSION: No acute process. D/ / Maksim Kramer MD / Maksim Kramer MD Interpreting Provider: Maksim Kramer MD Consult Discharge Plan - Plan Referrals: Jaime Paula MD [Primary Care Provider] - (1) Sepsis Qualifiers: Sepsis type: sepsis due to unspecified organism Qualified Code(s): A41.9 - Sepsis, unspecified organism (4) AF (atrial fibrillation) Qualifiers: Atrial fibrillation type: chronic Qualified Code(s): I48.2 - Chronic atrial fibrillation (6) CHF (congestive heart failure) Qualifiers: Heart failure type: unspecified Heart failure chronicity: chronic Qualified Code(s): I50.9 - Heart failure, unspecified
[2018-11-06] MEDS: amLODIPine 5 MG TABLET PO SCH (08:51)
[2018-11-06] MEDS: Cholecalciferol (D-3) 1,000 UNIT TABLET PO SCH (08:51)
[2018-11-06] MEDS: Furosemide 40 MG/4 ML VIAL IVP SCH ×2 (08:51→16:18)
[2018-11-06 09:10] LABS: Prothrombin Time 22.2 Seconds (9.4-12.1)
--- NOTE | 2018-11-06 11:41 | Event Note ---
Date of Encounter: 11/06/18 Time of Encounter: 09:45 Pt did not complete prep for colonoscopy. Continue clear liquids, will prep again today for colonoscopy tomorrow.
[2018-11-06] MEDS ORDERED: SODIUM CHLORIDE/NAHCO3/KCL/PEG 4,000 ML SOLN.RECON PO ONE (17:00)
[2018-11-07] MEDS: Insulin LISPRO 300 UNITS/3 ML VIAL SQ SCH ×5 (00:08→21:07)
[2018-11-07] MEDS: Clindamycin 600 MG/50 ML 600 MG/50 ML IV.SOLN IVPB SCH ×3 (00:11→11:14)
[2018-11-07] MEDS: Piperacillin/Tazobactam 3.375 GM in 0.9 % Sodium Chloride Mini Bag 100 ML IVPB SCH ×2 (03:08→11:13)
[2018-11-07] MEDS: *HR* Heparin 5,000 UNIT/ML VIAL SQ SCH ×2 (05:30→21:06)
[2018-11-07 06:15] LABS: Basophils # 0.1 K/mcL (0.0-0.2); Basophils % 0.6 %; Eosinophils # 0.4 K/mcL (0.0-0.6); Eosinophils % 4.3 %; Hematocrit 26.4 % (37.5-50.1); Hemoglobin 7.9 g/dL (12.9-16.9); Immature Granulocytes % 0.5 % (0-4); Lymphocytes # 1.5 K/mcL (0.6-4.6); Lymphocytes % 15.8 %; Mean Corpuscular HGB Conc 29.9 g/dL (31.6-35.5); Mean Corpuscular Hemoglobin 26.2 pg (28.0-33.3); Mean Corpuscular Volume 87.7 fL (83.0-100.0); Mean Platelet Volume 10.9 fL (9.4-12.4); Monocytes # 1.2 K/mcL (0.0-1.3); Neutrophils # 6.4 K/mcL (1.6-8.9); Platelet Count 258 K/mcL (140-400); Red Blood Count 3.01 M/mcL (4.19-5.50); Segmented Neutrophils % 66.8 %; White Blood Count 9.6 K/mcL (4.3-11.1)
[2018-11-07 06:34] LABS: Calcium 8.7 mg/dL (8.6-10.3); Magnesium 1.7 mg/dL (1.6-2.6); Phosphorous 3.7 mg/dL (2.7-4.5); Potassium 4.2 mEq/L (3.5-5.1)
[2018-11-07] MEDS: amLODIPine 5 MG TABLET PO SCH (08:09)
[2018-11-07] MEDS: Cholecalciferol (D-3) 1,000 UNIT TABLET PO SCH (08:09)
[2018-11-07] MEDS: Furosemide 40 MG/4 ML VIAL IVP SCH ×2 (08:10→18:40)
[2018-11-07] MEDS ORDERED: Ferumoxytol 510 MG in 0.9 % Sodium Chloride 100 ML IVPB ONE (08:43)
[2018-11-07 10:34] LABS: INR 2.4; Prothrombin Time 26.9 Seconds (9.4-12.1)
[2018-11-07] MEDS ORDERED: Piperacillin/Tazobactam 3.375 GM VIAL ONE (11:04)
--- NOTE | 2018-11-07 11:32 | Internal Med Progress Note ---
Hospitalist Progress Note - Encounter Date of Encounter: 11/07/18 Time of Encounter: 11:30 - Subjective Interval History: Patient sitting up in bed. Complains of nasal congestion and wheezing. Denies any hematemesis or melena. No nausea or vomiting or abdominal pain. Has been nothing by mouth for planned EGD and colonoscopy today. - Exam Vitals: Temp Pulse Resp BP Pulse Ox 98.4 F 79 15 131/71 94 11/07/18 10:40 11/07/18 10:40 11/07/18 10:40 11/07/18 10:40 11/07/18 10:40 Exam: General: Patient is alert, no acute distress, oriented x 3 ENT: Mucous membranes moist Respiratory: Bilateral wheezing Cardiovascular: Regular rate and rhythm. s1 and s2 normal No clicks, rubs, gallops, or murmurs. Bilateral lower extremity edema with stasis dermatitis/cellulitis involving the left lower extremity. Abdomen: Abdomen is soft, nontender. Bowel sounds are present Musculoskeletal: Spontaneously moving all extremities Skin: warm, dry, intact. Neuro: Alert oriented x 3 normal cranial nerves, no focal deficits - Assessment and Plan (1) Sepsis Current Visit: Yes Status: Acute (2) AF (atrial fibrillation) Current Visit: Yes Status: Chronic (3) KELSY (acute kidney injury) Current Visit: Yes Status: Acute (4) CHF (congestive heart failure) Current Visit: Yes Status: Chronic (5) Diabetes mellitus type 2 in obese Current Visit: Yes Status: Acute (6) PAD (peripheral artery disease) Current Visit: Yes Status: Chronic (7) Cellulitis of left thigh Current Visit: Yes Status: Acute (8) Anemia in chronic kidney disease Current Visit: Yes Status: Acute (9) Upper respiratory infection, viral Current Visit: Yes Status: Acute DVT Prophylaxis: Continue subcutaneous heparin - Summary of Assessment and Plan Summary of Assessment and Plan: Cellulitis involving the left lower extremity: Improving. Continue antibiotics per infectious disease recommendations. We will stop Zosyn. Transition clindamycin to oral regimen with a stop date of 11/10. Anemia: Hemoglobin 7.9. Could be related to chronic kidney disease. Patient does have iron deficiency. Will transfuse feraheme. Plan for EGD and colonoscopy today. Atrial fibrillation: Rate controlled. Coumadin held as GI workup in progress for possible GI bleed and anemia. Chronic kidney disease stage III: Creatinine at baseline. Patient has 5 L positive fluid balance. We will continue IV Lasix. Monitor renal function closely. Essential hypertension: Continue carvedilol and amlodipine. Diabetes mellitus type 2: Continue current insulin regimen. Patient is currently nothing by mouth in anticipation for EGD and colonoscopy. - Time Spent with Patient Total time spent is greater than 50% in coordination of care (as documented) at patient's floor/unit and/or counseling patient: Internal Medicine: Result - Labs CBC & Chem 7: 11/07/18 06:00 11/07/18 06:00 Labs: Short CBC 11/07/18 Range/Units 06:00 WBC 9.6 (4.3-11.1) K/mcL Hgb 7.9 L (12.9-16.9) g/dL Hct 26.4 L (37.5-50.1) % Plt Count 258 (140-400) K/mcL Neutrophils # 6.4 (1.6-8.9) K/mcL BMP 11/07/18 06:00 Sodium 142 Potassium 4.2 Chloride 104 Carbon Dioxide 26 BUN 18 Creatinine 1.67 H Glucose 176 H Calcium 8.7 - ABG Interpretation ABG results: PT/INR, D-dimer PT 26.9 Seconds (9.4-12.1) H 11/07/18 10:13 Consult Discharge Plan - Plan Referrals: Jaime Paula MD [Primary Care Provider] - (1) Sepsis Qualifiers: Sepsis type: sepsis due to unspecified organism Qualified Code(s): A41.9 - Sepsis, unspecified organism (2) AF (atrial fibrillation) Qualifiers: Atrial fibrillation type: chronic Qualified Code(s): I48.2 - Chronic atrial fibrillation (4) CHF (congestive heart failure) Qualifiers: Heart failure type: unspecified Heart failure chronicity: chronic Qualified Code(s): I50.9 - Heart failure, unspecified (8) Anemia in chronic kidney disease Qualifiers: Chronic kidney disease stage: stage 3 (moderate) Qualified Code(s): N18.3 - Chronic kidney disease, stage 3 (moderate); D63.1 - Anemia in chronic kidney disease
[2018-11-07] MEDS ORDERED: Ringers Solution, Lactated 1,000 ML IVC SCH (16:30)
[2018-11-07] MEDS ORDERED: Propofol 500 MG/50 ML INFUS..BTL ONE (16:36)
[2018-11-07] MEDS ORDERED: *HR* Propofol 200 MG/20 ML VIAL IVP ONE (17:02)
[2018-11-07] MEDS ORDERED: Lidocaine -MPF 2% 2 ML VIAL ONE (17:19)
[2018-11-07] MEDS ORDERED: Albuterol 2.5 MG/3 ML NEBULIZER IH ONE (18:00)
[2018-11-07] MEDS ORDERED: Albuterol 2.5 MG/3 ML NEBULIZER ONE (18:01)
--- NOTE | 2018-11-07 18:16 | Anesthesia Evaluation Post Op ---
Date of Encounter: 11/07/18 Time of Encounter: 18:16 - Vital Signs Vital Signs: Vital Signs/O2 Sat, Most Current Temp Pulse Resp BP Pulse Ox 99.7 F H 83 16 169/78 98 11/07/18 17:52 11/07/18 18:12 11/07/18 18:12 11/07/18 18:12 11/07/18 18:12 - Lungs Lungs: Clear Ascult./Percussion - Airway Airway: Non-obstructed - Cardiovascular Regular Rate - Mental Status Mental Status: Alert & Oriented, Answers Appropriately - Pain Pain Scale: 0 Pain Scale used: Numeric (1 - 10) - Nausea Vomiting Nausea Vomiting: Not Present - Hydration Hydration: Ice chips, Has not voided - Discharge PostOp Status: Transfer Patient to floor
[2018-11-07] MEDS: Lactobacillus 1 EACH CAP.SPRINK PO SCH (21:06)
[2018-11-08] MEDS: *HR* Heparin 5,000 UNIT/ML VIAL SQ SCH (06:22)
[2018-11-08 06:49] LABS: Basophils # 0.1 K/mcL (0.0-0.2); Basophils % 0.7 %; Eosinophils # 0.6 K/mcL (0.0-0.6); Eosinophils % 6.7 %; Hematocrit 27.7 % (37.5-50.1); Hemoglobin 8.2 g/dL (12.9-16.9); Lymphocytes % 21.9 %; Mean Corpuscular HGB Conc 29.6 g/dL (31.6-35.5); Mean Corpuscular Hemoglobin 25.9 pg (28.0-33.3); Mean Corpuscular Volume 87.7 fL (83.0-100.0); Mean Platelet Volume 11.1 fL (9.4-12.4); Monocytes # 1.1 K/mcL (0.0-1.3); Monocytes % 12.8 %; Neutrophils # 5.1 K/mcL (1.6-8.9); Platelet Count 294 K/mcL (140-400); Red Blood Count 3.16 M/mcL (4.19-5.50); Red Cell Distribution Width 14.9 % (11.5-14.5); Segmented Neutrophils % 56.9 %; White Blood Count 8.9 K/mcL (4.3-11.1)
[2018-11-08 07:03] LABS: Magnesium 1.6 mg/dL (1.6-2.6); Phosphorous 3.9 mg/dL (2.7-4.5); Potassium 4.1 mEq/L (3.5-5.1)
[2018-11-08] MEDS: Insulin LISPRO 300 UNITS/3 ML VIAL SQ SCH ×3 (09:53→16:22)
[2018-11-08] MEDS: Furosemide 40 MG/4 ML VIAL IVP SCH ×2 (09:56→16:12)
[2018-11-08] MEDS: amLODIPine 5 MG TABLET PO SCH (09:57)
[2018-11-08] MEDS: Lactobacillus 1 EACH CAP.SPRINK PO SCH (09:57)
[2018-11-08] MEDS: Cholecalciferol (D-3) 1,000 UNIT TABLET PO SCH (09:58)
--- NOTE | 2018-11-08 15:01 | Discharge Summary ---
- NOTES TO OUTPATIENT PROVIDER Notes to Outpatient Provider: Patient with a history of asthma, atrial fibrillation, CHF, diabetes, hypertension, prior PE, chronic kidney disease and venous stasis was hospitalized here with cellulitis of his left thigh and acute kidney injury on chronic kidney disease. He was treated with broad-spectrum antibiotics and has had improvement in his cellulitis. He was evaluated by infectious disease and recommended completing treatment course with clindamycin. Patient was also diagnosed with anemia and given that he was on Coumadin for his atrial fibrillation, and gastroenterology was consulted. Patient underwent upper GI endoscopy and colonoscopy yesterday which did not show any active bleeding. He did have gastritis and reflux esophagitis and will be placed on PPI. His hemoglobin levels have been stable here and he does have chronic anemia. At this time, he we will resume his Coumadin. He does have iron deficiency and he will be placed on iron supplements. He did receive Feraheme here intravenously. He will follow with his primary care provider and nephrology as outpatient for further management. Orders not resulted at time of discharge: Pending orders 11/08/18 14:32 Prothrombin Time INR [COAG] Stat 11/09/18 04:00 Basic Metabolic Panel AM 0400 CBC [Complete Blood Count] [HEME] AM 0400 Magnesium AM 0400 Phosphorous AM 0400 11/10/18 04:00 Basic Metabolic Panel AM 0400 CBC [Complete Blood Count] [HEME] AM 0400 Magnesium AM 0400 Phosphorous AM 0400 Date of Encounter: 11/08/18 Time of Encounter: 15:01 - Discharge Diagnosis (1) Sepsis Priority: Primary Status: Acute Qualifiers: Sepsis type: sepsis due to unspecified organism Qualified Code(s): A41.9 - Sepsis, unspecified organism (2) AF (atrial fibrillation) Priority: Secondary Status: Chronic Qualifiers: Atrial fibrillation type: chronic Qualified Code(s): I48.2 - Chronic atrial fibrillation (3) KELSY (acute kidney injury) Priority: Secondary Status: Acute (4) CHF (congestive heart failure) Priority: Secondary Status: Chronic Qualifiers: Heart failure type: diastolic Heart failure chronicity: chronic Qualified Code(s): I50.32 - Chronic diastolic (congestive) heart failure (5) Diabetes mellitus type 2 in obese Priority: Secondary Status: Acute (6) PAD (peripheral artery disease) Priority: Secondary Status: Chronic (7) Cellulitis of left thigh Priority: Secondary Status: Acute (8) Anemia in chronic kidney disease Priority: Secondary Status: Acute Qualifiers: Chronic kidney disease stage: stage 3 (moderate) Qualified Code(s): N18.3 - Chronic kidney disease, stage 3 (moderate); D63.1 - Anemia in chronic kidney disease (9) Upper respiratory infection, viral Priority: Secondary Status: Acute (10) Gastritis Priority: Secondary Status: Acute Qualifiers: Gastritis type: other gastritis Chronicity: acute Gastritis bleeding: without bleeding Qualified Code(s): K29.00 - Acute gastritis without bleeding (11) Reflux esophagitis Priority: Secondary Status: Acute Hospital course: Mr. Jones is a 52 year old male Patient with a history of asthma, atrial fibrillation, CHF, diabetes, hypertension, prior PE, chronic kidney disease and venous stasis was hospitalized here with cellulitis of his left thigh and acute kidney injury on chronic kidney disease. He was treated with broad-spectrum antibiotics and has had improvement in his cellulitis. He was evaluated by infectious disease and recommended completing treatment course with clindamycin. Patient was also diagnosed with anemia and given that he was on Coumadin for his atrial fibrillation, and gastroenterology was consulted. Patient underwent upper GI endoscopy and colonoscopy yesterday which did not show any active bleeding. He did have esophagitis and gastritis. Placed on PPI. His hemoglobin levels have been stable here and he does have chronic anemia. At this time, he we will resume his Coumadin. He does have iron deficiency and he will be placed on iron supplements. He did receive Feraheme here intravenously. He will follow with his primary care provider and nephrology as outpatient for further management. Patient was also diagnosed with an acute upper respiratory tract infection with adenovirus. This is being managed symptomatically. We have decreased his Coumadin dosage to 4 mg daily as his INR is 2 despite him being off Coumadin for a few days and as he will also be on clindamycin. He will follow up with Coumadin clinic for further management and to keep his INR between 2 and 3. Discharge discussed with: patient - Time Spent with Patient Total time spent providing and/or coordinating discharge services: Time spent: Greater than 30 minutes (40 min) - Discharge Medications Prescriptions: New Clindamycin HCl 600 mg PO QID #20 capsule Lactobacillus [Culturelle] 1 each PO BID #14 cap.sprink GuaiFENesin/Dextromethorphan [[facility] Adult Dm Maximum Liquid] 5 ml PO Q4-6H PRN #177 ml PRN Reason: Cough Warfarin [Coumadin] 4 mg PO 1800 #30 tablet Continued Acetaminophen [Tylenol] 500 mg PO HS Pramipexole [Mirapex] 0.25 mg PO BID Pentoxifylline 400 mg PO BID Furosemide [Lasix] 40 mg PO DAILY Carvedilol Phosphate [Coreg Cr] 80 mg PO QAM Insulin Glargine,Hum.rec.anlog [Lantus Solostar] 46 units SQ BID Insulin LISPRO [HumaLOG] 10 - 12 units SQ TIDWM Albuterol Sulfate [Ventolin Hfa] 2 puff IH Q4H PRN PRN Reason: Dyspnea Lansoprazole [Prevacid] 30 mg PO QAM Atorvastatin [Lipitor] 40 mg PO HS metFORMIN [Glucophage] 500 mg PO BIDWM #60 tablet Cholecalciferol (D-3) [Vitamin D] 1,000 unit PO DAILY Lisinopril [Zestril] 10 mg PO DAILY amLODIPine [Norvasc] 5 mg PO DAILY Discontinued Warfarin Sodium 8 mg PO SUMOTUWETHSA Warfarin [Coumadin] 10 mg PO FR Home Medications: Acetaminophen [Tylenol] 500 mg PO HS 12/02/16 [History] Carvedilol Phosphate [Coreg Cr] 80 mg PO QAM 12/02/16 [History] Furosemide [Lasix] 40 mg PO DAILY 12/02/16 [History] Insulin Glargine,Hum.rec.anlog [Lantus Solostar] 46 units SQ BID 12/02/16 [History] Pentoxifylline 400 mg PO BID 12/02/16 [History] Pramipexole [Mirapex] 0.25 mg PO BID 12/02/16 [History] Albuterol Sulfate [Ventolin Hfa] 2 puff IH Q4H PRN 01/05/18 [History] Atorvastatin [Lipitor] 40 mg PO HS 01/05/18 [History] Insulin LISPRO [HumaLOG] 10 - 12 units SQ TIDWM 01/05/18 [History] Lansoprazole [Prevacid] 30 mg PO QAM 01/05/18 [History] metFORMIN [Glucophage] 500 mg PO BIDWM #60 tablet 10/02/18 [Rx] Cholecalciferol (D-3) [Vitamin D] 1,000 unit PO DAILY 10/25/18 [History] Lisinopril [Zestril] 10 mg PO DAILY 10/25/18 [History] amLODIPine [Norvasc] 5 mg PO DAILY 10/25/18 [History] Clindamycin HCl 600 mg PO QID #20 capsule 11/08/18 [Rx] GuaiFENesin/Dextromethorphan [[facility] Adult Dm Maximum Liquid] 5 ml PO Q4-6H PRN #177 ml 11/08/18 [Rx] Lactobacillus [Culturelle] 1 each PO BID #14 cap.sprink 11/08/18 [Rx] Warfarin [Coumadin] 4 mg PO 1800 #30 tablet 11/08/18 [Rx] Allergies/Adverse Reactions: Allergy/AdvReac Type Severity Reaction Status Date / Time vancomycin Allergy Intermediate Itching Verified 10/25/18 11:32 latex Allergy Rash Verified 10/25/18 11:32 peanut Allergy Anaphylaxis Verified 10/25/18 11:32 tree nut Allergy Anaphylaxis Verified 10/25/18 11:32 cephalexin [From Keflex] AdvReac Rash Verified 10/25/18 11:32 levofloxacin AdvReac Rash Verified 10/25/18 11:32 Sulfa (Sulfonamide AdvReac Rash Verified 10/25/18 11:32 Antibiotics) Date of admission: 11/06/18 13:45 Primary care physician: Jaime Paula MD Consults: 11/04/18 13:21 Consult to Infectious Diseases [CONS] Routine Consulting Provider: [facility] [place] Reason for Consult: sepsis with left leg cellulitis Call Completed: No 11/05/18 08:21 Consult to Gastroenterology [CONS] Routine Consulting Provider: [facility] [place] Reason for Consult: anemia r/o gi bleed Call Completed: No 11/05/18 12:09 Consult to Invasive Line Access Team [CONS] Routine Reason for Consult: limited Iv access Line Type: EPIV Discharging clinician: José Jacques Anticipated date of discharge: 11/08/18 - Constitutional Vitals: Temp Pulse Resp BP Pulse Ox 98.0 F 78 20 164/77 93 11/08/18 11:24 11/08/18 11:24 11/08/18 11:24 11/08/18 11:24 11/08/18 11:24 General appearance: Present: A&O X 3 Exam: General: Patient is alert, no acute distress, oriented x 3 Respiratory: Good respiratory effort. Normal breath sounds. Mild end expiratory wheezing Cardiovascular: Regular rate and rhythm. s1 and s2 normal No clicks, rubs, gallops, or murmurs. No pedal edema Abdomen: Abdomen is soft, nontender. Bowel sounds are present Musculoskeletal: Spontaneously moving all extremities Skin: Stasis dermatitis involving both lower extremities, erythema over her left thigh resolved Neuro: Alert oriented x 3 normal cranial nerves, no focal deficits - Patient Status Disposition: Home, Self-Care Condition: Good Functional capacity at discharge: independent ambulation Overall status at discharge: patient is progressing back to baseline - Ambulatory Orders Ambulatory Orders: Complete Blood Count [HEME] Time Frame: 1 Week, Facility: [facility], Location: Lab - Discharge Instructions Follow Up With: Karsten Burch DO [Partnered Physician] - 12/18/18 10:30 am (in 1-2 weeks for CKD) Jaime Paula MD [Primary Care Provider] - 11/20/18 9:15 am (in 1week) - Diet and Activity Activity: increase activity as tolerated Diet: diabetic diet, low fat, low cholesterol, low salt diet
[2018-11-08 15:17] LABS: Prothrombin Time 22.2 Seconds (9.4-12.1)
[2018-11-08 15:27] VITALS: BP 167/81
[2018-11-08] MEDS ORDERED: *HR* Warfarin 4 MG TABLET PO ONE (18:00)
[2018-11-08] MEDS ORDERED: Warfarin perPT PO PRN (18:00)
== END 2018-11-08 17:59 | disposition home or self-care (01) | DRG 872 ==
LOC: 3ANU 05:06 → EMEROOARM 05:06 → 3ANU 11:50 → SUATTDRO 11-06 13:45
PROVIDERS: ADMIT Internal Medicine Nephrology; ATTEND Internal Medicine

== ENCOUNTER 2020-01-29 21:18 | Inpatient (IN) ==
[2020-01-29] MEDS ORDERED: *HR* FentaNYL (PF) 100 MCG/2 ML VIAL IVP ONE (23:10)
[2020-01-29] MEDS ORDERED: 0.9 % Sodium Chloride 1,000 ML IVC ONE (23:11)
[2020-01-29] MEDS ORDERED: Ondansetron 4 MG/2 ML VIAL IVP ONE (23:11)
[2020-01-29 23:43] LABS: INR 2.4
[2020-01-29 23:46] LABS: D-Dimer < 215 ng/mLFEU (0-500)
[2020-01-29 23:59] LABS: BUN/Creatinine Ratio 17 (6-26); Basophils # 0.1 K/mcL (0.0-0.2); Basophils % 0.5 %; Blood Urea Nitrogen 28 mg/dL (6-20); Calcium 8.2 mg/dL (8.6-10.3); Carbon Dioxide 20 mEq/L (23-29); Chloride 116 mEq/L (98-107); Eosinophils % 7.5 %; Glucose 136 mg/dL (70-105); Hematocrit 29.1 % (37.5-50.1); Hemoglobin 8.5 g/dL (12.9-16.9); Immature Granulocytes % 0.5 % (0-4); Lymphocytes # 1.3 K/mcL (0.6-4.6); Lymphocytes % 10.4 %; Mean Corpuscular HGB Conc 29.2 g/dL (31.6-35.5); Mean Corpuscular Hemoglobin 28.6 pg (28.0-33.3); Mean Platelet Volume 11.6 fL (9.4-12.4); Monocytes # 1.2 K/mcL (0.0-1.3); Monocytes % 9.5 %; Osmolality,Calculated 300 (280-300); Platelet Count 198 K/mcL (140-400); Potassium 5.8 mEq/L (3.5-5.1); Red Blood Count 2.97 M/mcL (4.19-5.50); Segmented Neutrophils % 71.6 %; Sodium 141 mEq/L (136-145); White Blood Count 12.6 K/mcL (4.3-11.1); eGFR For African Americans 54 (> 60); eGFR For Non-African Americans 44 (> 60)
[2020-01-30] LABS: Troponin I < 0.03 ng/mL (< 0.04)
[2020-01-30 00:27] LABS: Adenovirus Not Detected (Not Detect); Bordetella Pertussis Not Detected (Not Detect); Chlamydophila pneumoniae Not Detected (Not Detect); Coronavirus 229E Not Detected (Not Detect); Coronavirus HKU1 Not Detected (Not Detect); Coronavirus NL63 Not Detected (Not Detect); Coronavirus OC43 Not Detected (Not Detect); Human Metapneumovirus Not Detected (Not Detect); Human Rhinovirus/Enterovirus Not Detected (Not Detect); Influenza A Subtype 2009 H1 Not Detected (Not Detect); Influenza B Not Detected (Not Detect); Mycoplasma pneumoniae Not Detected (Not Detect); Parainfluenza Virus 1 Not Detected (Not Detect); Parainfluenza Virus 2 Not Detected (Not Detect); Parainfluenza Virus 3 Not Detected (Not Detect); Parainfluenza Virus 4 Not Detected (Not Detect); Respiratory Syncytial Virus Not Detected (Not Detect); SARS-CoV-2 Not Detected (Not Detect)
[2020-01-30] MEDS ORDERED: Piperacillin/Tazobactam 3.375 GM in 0.9 % Sodium Chloride Mini Bag 100 ML IVPB ONE (00:36)
[2020-01-30] MEDS ORDERED: Piperacillin/Tazobactam 3.375 GM in Water for inj. (sterile) 20 ML IVP ONE (01:15)
[2020-01-30 02:54] LABS: Bilirubin,Urine Negative (Negative); Blood,Urine Negative (Negative); Clarity,Urine Clear (Clear); Color,Urine Colorless (Yellow); Glucose,Urine (UA) Normal (Normal); Ketones,Urine Negative (Negative); Leukocyte Esterase,Urine Negative (Negative); Nitrite,Urine Negative (Negative); Protein,Urine Trace mg/dL (Neg-Trace); Specific Gravity,Urine 1.013 (1.010-1.025); Urobilinogen,Urine Normal (Normal)
[2020-01-30] MEDS ORDERED: EPINEPHrine 1 MG/ML VIAL IM ONE (03:00)
[2020-01-30] MEDS ORDERED: Famotidine 20 MG/2 ML VIAL IVP ONE (03:02)
[2020-01-30] MEDS ORDERED: methylPREDNISolone 125 MG/2 ML VIAL IVP ONE (03:02)
[2020-01-30] MEDS ORDERED: EPINEPHrine 1 MG/ML VIAL ONE (03:02)
[2020-01-30] MEDS ORDERED: Acetaminophen 325 MG TABLET PO PRN (05:10)
[2020-01-30] MEDS ORDERED: Naloxone 0.4 MG/ML INJ IVP PRN (05:10)
[2020-01-30] MEDS ORDERED: *HR* Promethazine 25 MG/ML VIAL IVP PRN (05:10)
[2020-01-30] MEDS ORDERED: Ipratropium/Albuterol Neb 3 ML IH PRN ×3 (05:24→08:00)
[2020-01-30] MEDS ORDERED: 0.9 % Sodium Chloride 1,000 ML IVC SCH (05:30)
[2020-01-30] MEDS ORDERED: Benzonatate 100 MG CAPSULE PO PRN (05:31)
[2020-01-30] MEDS ORDERED: *HR* Heparin 5,000 UNIT/ML VIAL SQ SCH (06:00)
[2020-01-30 07:09] LABS: BUN/Creatinine Ratio 17 (6-26); Blood Urea Nitrogen 28 mg/dL (6-20); Calcium 8.4 mg/dL (8.6-10.3); Carbon Dioxide 19 mEq/L (23-29); Chloride 117 mEq/L (98-107); Glucose 134 mg/dL (70-105); Osmolality,Calculated 301 (280-300); Potassium 5.7 mEq/L (3.5-5.1); Sodium 142 mEq/L (136-145); Troponin I < 0.03 ng/mL (< 0.04); eGFR For African Americans 52 (> 60); eGFR For Non-African Americans 43 (> 60)
[2020-01-30] MEDS ORDERED: Ipratropium/Albuterol Neb 3 ML IH SCH (08:00)
[2020-01-30] MEDS: carvediloL 25 MG TABLET PO SCH ×2 (09:10→16:38)
[2020-01-30] MEDS: Lactobacillus 1 EACH CAP.SPRINK PO SCH (09:10)
[2020-01-30] MEDS: amLODIPine 5 MG TABLET PO SCH (09:10)
[2020-01-30] MEDS: Furosemide 40 MG TABLET PO SCH (09:10)
[2020-01-30] MEDS: Cholecalciferol (D-3) 1,000 UNIT (25MCG) TABLET PO SCH (09:10)
[2020-01-30] MEDS: Insulin LISPRO 300 UNITS/3 ML VIAL SQ SCH ×3 (09:10→16:36)
[2020-01-30] MEDS: Piperacillin/Tazobactam 3.375 GM in 0.9 % Sodium Chloride Mini Bag 100 ML IVPB SCH ×2 (09:10→15:49)
[2020-01-30] MEDS: Insulin DETEMIR 100 UNIT/ML X5UNITS SQ SCH ×2 (10:11→21:42)
[2020-01-30] MEDS: Ipratropium/Albuterol Neb 3 ML IH SCH ×3 (10:48→21:51)
[2020-01-30] MEDS ORDERED: Warfarin perPT PO PRN (18:00)
[2020-01-30] MEDS ORDERED: *HR* Warfarin 4 MG TABLET PO ONE ×2 (18:00→18:15)
[2020-01-31] MEDS: Piperacillin/Tazobactam 3.375 GM in 0.9 % Sodium Chloride Mini Bag 100 ML IVPB SCH ×3 (00:43→15:59)
[2020-01-31 01:08] LABS: Basophils % 0.1 %; Hematocrit 28.3 % (37.5-50.1); Hemoglobin 8.3 g/dL (12.9-16.9); Immature Granulocytes % 0.5 % (0-4); Lymphocytes % 6.9 %; Mean Corpuscular HGB Conc 29.3 g/dL (31.6-35.5); Mean Corpuscular Hemoglobin 28.1 pg (28.0-33.3); Mean Corpuscular Volume 95.9 fL (83.0-100.0); Mean Platelet Volume 11.7 fL (9.4-12.4); Monocytes # 0.7 K/mcL (0.0-1.3); Monocytes % 5.1 %; Neutrophils # 12.1 K/mcL (1.6-8.9); Platelet Count 197 K/mcL (140-400); Red Blood Count 2.95 M/mcL (4.19-5.50); Red Cell Distribution Width 14.8 % (11.5-14.5); Segmented Neutrophils % 87.4 %; White Blood Count 13.9 K/mcL (4.3-11.1)
[2020-01-31 01:22] LABS: INR 1.7; Prothrombin Time 19.8 Seconds (9.4-12.1)
[2020-01-31 01:31] LABS: Albumin 3.6 g/dL (3.5-5.7); Albumin/Globulin Ratio 1.2 (1.1-2.2); Bilirubin,Total 0.4 mg/dL (0.3-1.0); Calcium 8.3 mg/dL (8.6-10.3); Globulin 2.9 g/dL (2.4-3.5); Magnesium 1.7 mg/dL (1.6-2.6); Phosphorous 2.9 mg/dL (2.7-4.5); Potassium 5.2 mEq/L (3.5-5.1); Total Protein 6.5 g/dL (6.4-8.9)
[2020-01-31 01:35] LABS: % Iron Saturation 12 % (20-55); Iron 33 mcg/dL (65-175); Transferrin 204 mg/dL (203-362)
[2020-01-31 01:47] LABS: Ferritin 242 ng/mL (20-250)
[2020-01-31] MEDS: Ipratropium/Albuterol Neb 3 ML IH SCH ×4 (03:37→22:13)
[2020-01-31] MEDS: amLODIPine 5 MG TABLET PO SCH (08:42)
[2020-01-31] MEDS: Cholecalciferol (D-3) 1,000 UNIT (25MCG) TABLET PO SCH (08:43)
[2020-01-31] MEDS: Lactobacillus 1 EACH CAP.SPRINK PO SCH (08:43)
[2020-01-31] MEDS: carvediloL 25 MG TABLET PO SCH ×2 (08:43→16:02)
[2020-01-31] MEDS: Furosemide 40 MG TABLET PO SCH (08:43)
[2020-01-31] MEDS: Insulin LISPRO 300 UNITS/3 ML VIAL SQ SCH ×3 (08:45→16:33)
[2020-01-31] MEDS: Insulin DETEMIR 100 UNIT/ML X5UNITS SQ SCH ×2 (08:46→20:51)
[2020-01-31] MEDS ORDERED: *HR* Warfarin 4 MG TABLET PO ONE (18:00)
[2020-02-01] MEDS: Piperacillin/Tazobactam 3.375 GM in 0.9 % Sodium Chloride Mini Bag 100 ML IVPB SCH ×3 (00:17→16:32)
[2020-02-01 03:26] LABS: Hematocrit 27.4 % (37.5-50.1); Mean Corpuscular HGB Conc 29.2 g/dL (31.6-35.5); Mean Corpuscular Hemoglobin 28.2 pg (28.0-33.3); Mean Corpuscular Volume 96.5 fL (83.0-100.0); Mean Platelet Volume 11.7 fL (9.4-12.4); Platelet Count 211 K/mcL (140-400); Red Blood Count 2.84 M/mcL (4.19-5.50); Red Cell Distribution Width 14.9 % (11.5-14.5); White Blood Count 12.4 K/mcL (4.3-11.1)
[2020-02-01 03:27] LABS: Prothrombin Time 23.2 Seconds (9.4-12.1)
[2020-02-01 03:44] LABS: Calcium 7.9 mg/dL (8.6-10.3); Potassium 4.1 mEq/L (3.5-5.1)
[2020-02-01] MEDS: Ipratropium/Albuterol Neb 3 ML IH SCH ×4 (04:16→22:42)
[2020-02-01] MEDS: Insulin LISPRO 300 UNITS/3 ML VIAL SQ SCH ×3 (07:44→16:32)
[2020-02-01] MEDS: carvediloL 25 MG TABLET PO SCH ×2 (08:16→16:32)
[2020-02-01] MEDS: Lactobacillus 1 EACH CAP.SPRINK PO SCH (08:16)
[2020-02-01] MEDS: amLODIPine 5 MG TABLET PO SCH (08:16)
[2020-02-01] MEDS: Cholecalciferol (D-3) 1,000 UNIT (25MCG) TABLET PO SCH (08:17)
[2020-02-01] MEDS: Furosemide 40 MG TABLET PO SCH (08:17)
[2020-02-01] MEDS: Insulin DETEMIR 100 UNIT/ML X5UNITS SQ SCH ×2 (08:19→20:31)
[2020-02-01] MEDS ORDERED: *HR* Warfarin 4 MG TABLET PO ONE (18:00)
[2020-02-02] MEDS: Piperacillin/Tazobactam 3.375 GM in 0.9 % Sodium Chloride Mini Bag 100 ML IVPB SCH ×2 (00:39→08:01)
[2020-02-02 02:05] LABS: Hematocrit 27.9 % (37.5-50.1); Hemoglobin 8.3 g/dL (12.9-16.9); Mean Corpuscular HGB Conc 29.7 g/dL (31.6-35.5); Mean Corpuscular Hemoglobin 28.7 pg (28.0-33.3); Mean Corpuscular Volume 96.5 fL (83.0-100.0); Mean Platelet Volume 12.1 fL (9.4-12.4); Platelet Count 176 K/mcL (140-400); Red Blood Count 2.89 M/mcL (4.19-5.50); Red Cell Distribution Width 14.6 % (11.5-14.5); White Blood Count 10.6 K/mcL (4.3-11.1)
[2020-02-02 02:24] LABS: Calcium 8.1 mg/dL (8.6-10.3); Potassium 4.4 mEq/L (3.5-5.1)
[2020-02-02] MEDS: Ipratropium/Albuterol Neb 3 ML IH SCH ×2 (03:40→10:05)
[2020-02-02 07:24] LABS: Prothrombin Time 22.7 Seconds (9.4-12.1)
[2020-02-02 07:37] VITALS: BP 168/72
[2020-02-02] MEDS: Insulin LISPRO 300 UNITS/3 ML VIAL SQ SCH (07:50)
[2020-02-02] MEDS: Insulin DETEMIR 100 UNIT/ML X5UNITS SQ SCH (08:02)
[2020-02-02] MEDS: carvediloL 25 MG TABLET PO SCH (08:02)
[2020-02-02] MEDS: Cholecalciferol (D-3) 1,000 UNIT (25MCG) TABLET PO SCH (08:02)
[2020-02-02] MEDS: Lactobacillus 1 EACH CAP.SPRINK PO SCH (08:02)
[2020-02-02] MEDS: amLODIPine 5 MG TABLET PO SCH (08:02)
[2020-02-02] MEDS: Furosemide 40 MG TABLET PO SCH (08:02)
[2020-02-03 09:46] LABS: Mycoplasma pneumoniae IgG 0.55 U/L (<=0.09)
== END 2020-02-02 13:56 | disposition home or self-care (01) | DRG 194 ==
LOC: EMEROOARM 21:18 → 3BNU 21:18
PROVIDERS: ADMIT Internal Medicine; ATTEND Nurse Practitioner Acute Care

== ENCOUNTER 2021-03-09 10:57 | Inpatient (IN) ==
[2021-03-09 12:25] LABS: Basophils # 0.1 K/mcL (0.0-0.2); Basophils % 0.6 %; Eosinophils # 0.8 K/mcL (0.0-0.6); Eosinophils % 6.9 %; Hematocrit 30.7 % (37.5-50.1); Hemoglobin 9.6 g/dL (12.9-16.9); Immature Granulocytes % 0.5 % (0-4); Lymphocytes # 1.5 K/mcL (0.6-4.6); Lymphocytes % 12.7 %; Mean Corpuscular HGB Conc 31.3 g/dL (31.6-35.5); Mean Corpuscular Hemoglobin 28.5 pg (28.0-33.3); Mean Corpuscular Volume 91.1 fL (83.0-100.0); Mean Platelet Volume 11.1 fL (9.4-12.4); Monocytes # 1.3 K/mcL (0.0-1.3); Monocytes % 11.1 %; Neutrophils # 7.8 K/mcL (1.6-8.9); Platelet Count 242 K/mcL (140-400); Red Blood Count 3.37 M/mcL (4.19-5.50); Red Cell Distribution Width 13.9 % (11.5-14.5); Segmented Neutrophils % 68.2 %; White Blood Count 11.4 K/mcL (4.3-11.1)
[2021-03-09 12:33] LABS: Prothrombin Time 21.7 Seconds (9.4-12.1)
[2021-03-09 12:50] LABS: Calcium 8.4 mg/dL (8.6-10.3)
[2021-03-09] MEDS ORDERED: Piperacillin/Tazobactam 3.375 GM in 0.9 % Sodium Chloride Mini Bag 100 ML IVPB ONE (14:10)
[2021-03-09] MEDS ORDERED: Naloxone 0.4 MG/ML INJ IVP PRN (14:12)
[2021-03-09] MEDS ORDERED: Ondansetron ODT 4 MG TAB.RAPDIS SL PRN (14:12)
[2021-03-09] MEDS ORDERED: Melatonin 3 MG TABLET PO PRN (14:12)
[2021-03-09] MEDS ORDERED: Mag Hydrox/Al Hydrox/Simeth 30 ML UDC PO PRN (14:12)
[2021-03-09] MEDS ORDERED: DAPTOmycin 1,000 MG in 0.9 % Sodium Chloride 100 ML IVPB ONE (14:15)
[2021-03-09] MEDS ORDERED: D5% in Water 1,000 ML IVC PRN (14:26)
[2021-03-09] MEDS ORDERED: *HR* Dextrose 50 % in Water (Syg) 50 ML SYRINGE IVP PRN (14:26)
[2021-03-09] MEDS ORDERED: Dextrose Gel 15 GM/37.5 ML TUBE PO PRN ×2 (14:26)
[2021-03-09] MEDS ORDERED: DAPTOmycin 1,000 MG in 0.9 % Sodium Chloride 100 ML IVPB SCH (15:00)
[2021-03-09] MEDS: Piperacillin/Tazobactam 3.375 GM in 0.9 % Sodium Chloride Mini Bag 100 ML IVPB SCH ×2 (15:06→23:11)
[2021-03-09] MEDS ORDERED: *HR* Heparin 5,000 UNIT/ML VIAL IVP ONE (15:21)
[2021-03-09] MEDS ORDERED: *HR* Heparin 5,000 UNIT/ML VIAL IVP PRN ×2 (15:21)
[2021-03-09] MEDS: Insulin LISPRO 300 UNITS/3 ML VIAL SUBQ SCH ×2 (16:29→20:26)
[2021-03-09 16:41] LABS: Estimated Average Glucose 220 mg/dl; Hemoglobin A1C 9.3 %
[2021-03-09] MEDS: Heparin 25,000UNIT/250ML 1/2NS 25,000 UNIT/250 ML IV.SOLN IVC SCH (17:07)
[2021-03-09] MEDS ORDERED: *HR* Heparin 5,000 UNIT/ML VIAL SQ SCH (18:00)
[2021-03-10 00:17] LABS: Basophils # 0.1 K/mcL (0.0-0.2); Basophils % 0.5 %; Eosinophils # 0.7 K/mcL (0.0-0.6); Eosinophils % 6.6 %; Hematocrit 32.4 % (37.5-50.1); Hemoglobin 10.3 g/dL (12.9-16.9); Immature Granulocytes % 0.4 % (0-4); Lymphocytes # 1.6 K/mcL (0.6-4.6); Lymphocytes % 14.7 %; Mean Corpuscular HGB Conc 31.8 g/dL (31.6-35.5); Mean Corpuscular Hemoglobin 28.8 pg (28.0-33.3); Mean Corpuscular Volume 90.5 fL (83.0-100.0); Monocytes % 9.2 %; Neutrophils # 7.6 K/mcL (1.6-8.9); Platelet Count 258 K/mcL (140-400); Red Blood Count 3.58 M/mcL (4.19-5.50); Segmented Neutrophils % 68.6 %; White Blood Count 11.1 K/mcL (4.3-11.1)
[2021-03-10 00:31] LABS: Albumin 3.3 g/dL (3.5-5.7); Bilirubin,Total 0.6 mg/dL (0.3-1.0); Calcium 8.7 mg/dL (8.6-10.3); Globulin 3.3 g/dL (2.4-3.5); Potassium 3.7 mEq/L (3.5-5.1); Total Protein 6.6 g/dL (6.4-8.9)
[2021-03-10 00:49] LABS: Prothrombin Time 22.6 Seconds (9.4-12.1)
[2021-03-10] MEDS: Heparin 25,000UNIT/250ML 1/2NS 25,000 UNIT/250 ML IV.SOLN IVC SCH ×2 (04:57→16:38)
[2021-03-10] MEDS: Insulin LISPRO 300 UNITS/3 ML VIAL SUBQ SCH ×4 (07:25→20:56)
[2021-03-10] MEDS: Piperacillin/Tazobactam 3.375 GM in 0.9 % Sodium Chloride Mini Bag 100 ML IVPB SCH (08:39)
[2021-03-10] MEDS: carvediloL 25 MG TABLET PO SCH (20:55)
[2021-03-10] MEDS ORDERED: Insulin DETEMIR 100 UNIT/ML X5UNITS SUBQ SCH (21:00)
[2021-03-11 05:25] LABS: Basophils # 0.1 K/mcL (0.0-0.2); Basophils % 0.6 %; Eosinophils # 0.7 K/mcL (0.0-0.6); Eosinophils % 7.8 %; Hematocrit 27.9 % (37.5-50.1); Hemoglobin 8.8 g/dL (12.9-16.9); Immature Granulocytes % 0.6 % (0-4); Lymphocytes # 1.6 K/mcL (0.6-4.6); Lymphocytes % 18.4 %; Mean Corpuscular HGB Conc 31.5 g/dL (31.6-35.5); Mean Corpuscular Hemoglobin 28.9 pg (28.0-33.3); Mean Corpuscular Volume 91.8 fL (83.0-100.0); Mean Platelet Volume 11.6 fL (9.4-12.4); Monocytes # 1.1 K/mcL (0.0-1.3); Monocytes % 12.1 %; Neutrophils # 5.3 K/mcL (1.6-8.9); Platelet Count 243 K/mcL (140-400); Red Blood Count 3.04 M/mcL (4.19-5.50); Red Cell Distribution Width 14.1 % (11.5-14.5); Segmented Neutrophils % 60.5 %; White Blood Count 8.8 K/mcL (4.3-11.1)
[2021-03-11 05:33] LABS: INR 1.7; Prothrombin Time 18.4 Seconds (9.4-12.1)
[2021-03-11 05:40] LABS: Calcium 8.3 mg/dL (8.6-10.3); Magnesium 1.9 mg/dL (1.6-2.6); Potassium 3.9 mEq/L (3.5-5.1)
[2021-03-11] MEDS: Heparin 25,000UNIT/250ML 1/2NS 25,000 UNIT/250 ML IV.SOLN IVC SCH ×2 (06:19→21:14)
[2021-03-11] MEDS: carvediloL 25 MG TABLET PO SCH ×2 (07:57→17:04)
[2021-03-11] MEDS ORDERED: Cholecalciferol (D-3) 1,000 UNIT (25MCG) TABLET PO SCH (09:00)
[2021-03-11] MEDS ORDERED: Lactobacillus 1 EACH CAP.SPRINK PO SCH (09:00)
[2021-03-11] MEDS ORDERED: Cyanocobalamin (B-12) 1,000 MCG TABLET PO SCH (09:00)
[2021-03-11] MEDS ORDERED: amLODIPine 5 MG TABLET PO SCH (09:00)
[2021-03-11] MEDS: Insulin LISPRO 300 UNITS/3 ML VIAL SUBQ SCH ×4 (09:01→21:36)
[2021-03-11] MEDS ORDERED: *HR* Propofol 200 MG/20 ML VIAL IVP ONE (14:18)
[2021-03-11] MEDS ORDERED: *HR* FentaNYL (PF) 100 MCG/2 ML VIAL ONE (14:19)
[2021-03-11] MEDS ORDERED: Lidocaine HCL 4 ML Topical Solution (Laryng-O-Jet Kit Sterile Pak) TP ONE (14:19)
[2021-03-11] MEDS ORDERED: *HR* Succinylcholine 200 MG/10 ML VIAL IVP ONE (14:19)
[2021-03-11] MEDS ORDERED: *HR* Rocuronium Bromide 50 MG/5 ML VIAL ONE (14:19)
[2021-03-11] MEDS ORDERED: Lidocaine -MPF 2% 5 ML VIAL ONE (14:19)
[2021-03-11] MEDS ORDERED: Ondansetron 4 MG/2 ML VIAL ONE (14:19)
[2021-03-11] MEDS ORDERED: Vancomycin 1,000 MG, 0.9 % Sodium Chloride 1,000 ML IR ONE ×2 (14:20→17:13)
[2021-03-11] MEDS ORDERED: *HR* Midazolam HCl 2 MG/2 ML VIAL ONE (14:20)
[2021-03-11] MEDS ORDERED: Insulin Human Regular 4 UNIT in 0.9 % Sodium Chloride 10 ML IV ONE ×2 (14:29→17:13)
[2021-03-11] MEDS ORDERED: Ringers Solution, Lactated 1,000 ML IVC SCH ×2 (14:30→17:13)
[2021-03-11] MEDS ORDERED: Bupivacaine/EPI 1:200k 0.25% 50 ML VIAL ONE (15:15)
[2021-03-11] MEDS ORDERED: Naloxone 0.4 MG/ML INJ IVP PRN (17:13)
[2021-03-11] MEDS ORDERED: Dextrose Gel 15 GM/37.5 ML TUBE PO PRN ×2 (17:13)
[2021-03-11] MEDS ORDERED: *HR* Heparin 5,000 UNIT/ML VIAL IVP PRN ×2 (17:13)
[2021-03-11] MEDS ORDERED: *HR* Dextrose 50 % in Water (Syg) 50 ML SYRINGE IVP PRN (17:13)
[2021-03-11] MEDS ORDERED: D5% in Water 1,000 ML IVC PRN (17:13)
[2021-03-11] MEDS ORDERED: Melatonin 3 MG TABLET PO PRN (17:13)
[2021-03-11] MEDS ORDERED: Ondansetron ODT 4 MG TAB.RAPDIS SL PRN (17:13)
[2021-03-11] MEDS ORDERED: Mag Hydrox/Al Hydrox/Simeth 30 ML UDC PO PRN (17:13)
[2021-03-11] MEDS ORDERED: Insulin DETEMIR 100 UNIT/ML X5UNITS SUBQ SCH (21:00)
[2021-03-12 03:30] LABS: Basophils # 0.1 K/mcL (0.0-0.2); Basophils % 0.6 %; Eosinophils # 0.6 K/mcL (0.0-0.6); Eosinophils % 5.8 %; Hematocrit 28.9 % (37.5-50.1); Immature Granulocytes % 0.5 % (0-4); Lymphocytes # 1.6 K/mcL (0.6-4.6); Lymphocytes % 14.8 %; Mean Corpuscular HGB Conc 31.1 g/dL (31.6-35.5); Mean Corpuscular Hemoglobin 29.2 pg (28.0-33.3); Mean Corpuscular Volume 93.8 fL (83.0-100.0); Mean Platelet Volume 11.2 fL (9.4-12.4); Monocytes # 0.9 K/mcL (0.0-1.3); Monocytes % 8.8 %; Neutrophils # 7.5 K/mcL (1.6-8.9); Platelet Count 279 K/mcL (140-400); Red Blood Count 3.08 M/mcL (4.19-5.50); Red Cell Distribution Width 14.1 % (11.5-14.5); Segmented Neutrophils % 69.5 %; White Blood Count 10.7 K/mcL (4.3-11.1)
[2021-03-12 03:41] LABS: BUN/Creatinine Ratio 14 (6-26); Blood Urea Nitrogen 21 mg/dL (6-20); Calcium 8.6 mg/dL (8.6-10.3); Carbon Dioxide 26 mEq/L (23-29); Chloride 106 mEq/L (98-107); Glucose 255 mg/dL (70-105); Osmolality,Calculated 302 (280-300); Sodium 140 mEq/L (136-145); eGFR For African Americans > 60 (> 60); eGFR For Non-African Americans 50 (> 60)
[2021-03-12] MEDS: Acetaminophen 325 MG TABLET PO PRN ×2 (03:43→09:55)
[2021-03-12 03:45] LABS: INR 1.5; Prothrombin Time 16.2 Seconds (9.4-12.1)
[2021-03-12] MEDS: Heparin 25,000UNIT/250ML 1/2NS 25,000 UNIT/250 ML IV.SOLN IVC SCH ×2 (08:16→18:32)
[2021-03-12] MEDS: Insulin LISPRO 300 UNITS/3 ML VIAL SUBQ SCH ×4 (08:23→21:49)
[2021-03-12] MEDS: Cholecalciferol (D-3) 1,000 UNIT (25MCG) TABLET PO SCH (08:32)
[2021-03-12] MEDS: Lactobacillus 1 EACH CAP.SPRINK PO SCH (08:32)
[2021-03-12] MEDS: carvediloL 25 MG TABLET PO SCH ×2 (08:33→17:00)
[2021-03-12] MEDS: Cyanocobalamin (B-12) 1,000 MCG TABLET PO SCH (08:33)
[2021-03-12] MEDS: amLODIPine 5 MG TABLET PO SCH (08:34)
[2021-03-12] MEDS ORDERED: Ipratropium/Albuterol Neb 3 ML IH ONE (10:08)
[2021-03-12 11:58] LABS: Hematocrit 28.2 % (37.5-50.1); Hemoglobin 8.8 g/dL (12.9-16.9)
[2021-03-12] MEDS ORDERED: Ipratropium/Albuterol Neb 3 ML IH PRN (16:00)
[2021-03-12] MEDS: Piperacillin/Tazobactam 3.375 GM in 0.9 % Sodium Chloride Mini Bag 100 ML IVPB SCH (16:53)
[2021-03-12] MEDS: Insulin DETEMIR 100 UNIT/ML X5UNITS SUBQ SCH (21:49)
[2021-03-13] MEDS: Piperacillin/Tazobactam 3.375 GM in 0.9 % Sodium Chloride Mini Bag 100 ML IVPB SCH ×3 (01:06→17:10)
[2021-03-13 01:54] LABS: Basophils % 0.6 %; Eosinophils % 5.6 %; Hematocrit 27.2 % (37.5-50.1); Hemoglobin 8.6 g/dL (12.9-16.9); Immature Granulocytes % 0.6 % (0-4); Lymphocytes % 19.1 %; Mean Corpuscular HGB Conc 31.6 g/dL (31.6-35.5); Mean Corpuscular Hemoglobin 29.4 pg (28.0-33.3); Mean Corpuscular Volume 92.8 fL (83.0-100.0); Monocytes % 10.2 %; Platelet Count 269 K/mcL (140-400); Red Blood Count 2.93 M/mcL (4.19-5.50); Red Cell Distribution Width 14.1 % (11.5-14.5); Segmented Neutrophils % 63.9 %; White Blood Count 10.4 K/mcL (4.3-11.1)
[2021-03-13 01:55] LABS: Basophils # 0.1 K/mcL (0.0-0.2); Eosinophils # 0.6 K/mcL (0.0-0.6); Monocytes # 1.1 K/mcL (0.0-1.3); Neutrophils # 6.7 K/mcL (1.6-8.9)
[2021-03-13 02:02] LABS: Heparin anti-factor XA UFH 0.63 IU/mL (0.30-0.70); INR 1.4; Prothrombin Time 15.7 Seconds (9.4-12.1)
[2021-03-13 02:19] LABS: BUN/Creatinine Ratio 13 (6-26); Blood Urea Nitrogen 17 mg/dL (6-20); Calcium 8.5 mg/dL (8.6-10.3); Carbon Dioxide 26 mEq/L (23-29); Chloride 106 mEq/L (98-107); Glucose 192 mg/dL (70-105); Osmolality,Calculated 295 (280-300); Potassium 3.9 mEq/L (3.5-5.1); Sodium 139 mEq/L (136-145); eGFR For African Americans > 60 (> 60); eGFR For Non-African Americans 55 (> 60)
[2021-03-13] MEDS: Heparin 25,000UNIT/250ML 1/2NS 25,000 UNIT/250 ML IV.SOLN IVC SCH ×2 (05:26→17:06)
[2021-03-13] MEDS: Insulin LISPRO 300 UNITS/3 ML VIAL SUBQ SCH ×4 (09:02→21:39)
[2021-03-13] MEDS: carvediloL 25 MG TABLET PO SCH ×2 (09:07→17:09)
[2021-03-13] MEDS: Cholecalciferol (D-3) 1,000 UNIT (25MCG) TABLET PO SCH (09:08)
[2021-03-13] MEDS: amLODIPine 5 MG TABLET PO SCH (09:08)
[2021-03-13] MEDS: Furosemide 40 MG TABLET PO SCH (09:08)
[2021-03-13] MEDS: Lactobacillus 1 EACH CAP.SPRINK PO SCH (09:08)
[2021-03-13] MEDS: Cyanocobalamin (B-12) 1,000 MCG TABLET PO SCH (09:08)
[2021-03-13] MEDS: Insulin DETEMIR 100 UNIT/ML X5UNITS SUBQ SCH ×2 (09:13→21:39)
[2021-03-14] MEDS: Piperacillin/Tazobactam 3.375 GM in 0.9 % Sodium Chloride Mini Bag 100 ML IVPB SCH ×4 (00:19→22:54)
[2021-03-14 02:19] LABS: Basophils % 0.5 %; Eosinophils # 0.6 K/mcL (0.0-0.6); Eosinophils % 7.1 %; Hemoglobin 8.4 g/dL (12.9-16.9); Immature Granulocytes % 0.6 % (0-4); Lymphocytes # 1.4 K/mcL (0.6-4.6); Lymphocytes % 16.3 %; Mean Corpuscular Hemoglobin 28.1 pg (28.0-33.3); Mean Corpuscular Volume 93.6 fL (83.0-100.0); Monocytes % 11.4 %; Neutrophils # 5.7 K/mcL (1.6-8.9); Platelet Count 258 K/mcL (140-400); Red Blood Count 2.99 M/mcL (4.19-5.50); Segmented Neutrophils % 64.1 %; White Blood Count 8.8 K/mcL (4.3-11.1)
[2021-03-14 02:26] LABS: INR 1.3
[2021-03-14 02:38] LABS: BUN/Creatinine Ratio 13 (6-26); Blood Urea Nitrogen 19 mg/dL (6-20); Calcium 8.4 mg/dL (8.6-10.3); Carbon Dioxide 27 mEq/L (23-29); Chloride 105 mEq/L (98-107); Glucose 255 mg/dL (70-105); Osmolality,Calculated 303 (280-300); Potassium 4.1 mEq/L (3.5-5.1); Sodium 141 mEq/L (136-145); eGFR For African Americans > 60 (> 60); eGFR For Non-African Americans 50 (> 60)
[2021-03-14] MEDS: Heparin 25,000UNIT/250ML 1/2NS 25,000 UNIT/250 ML IV.SOLN IVC SCH ×3 (05:55→20:21)
[2021-03-14] MEDS: carvediloL 25 MG TABLET PO SCH ×2 (09:50→17:04)
[2021-03-14] MEDS: Lactobacillus 1 EACH CAP.SPRINK PO SCH (09:50)
[2021-03-14] MEDS: amLODIPine 5 MG TABLET PO SCH (09:51)
[2021-03-14] MEDS: Cholecalciferol (D-3) 1,000 UNIT (25MCG) TABLET PO SCH (09:51)
[2021-03-14] MEDS: Cyanocobalamin (B-12) 1,000 MCG TABLET PO SCH (09:52)
[2021-03-14] MEDS: Furosemide 40 MG TABLET PO SCH (09:52)
[2021-03-14] MEDS: Insulin DETEMIR 100 UNIT/ML X5UNITS SUBQ SCH ×2 (09:57→22:53)
[2021-03-14] MEDS: Insulin LISPRO 300 UNITS/3 ML VIAL SUBQ SCH ×3 (09:58→17:05)
[2021-03-15 06:29] LABS: Basophils # 0.1 K/mcL (0.0-0.2); Basophils % 0.6 %; Eosinophils # 0.8 K/mcL (0.0-0.6); Eosinophils % 8.3 %; Hematocrit 29.8 % (37.5-50.1); Immature Granulocytes % 0.7 % (0-4); Lymphocytes # 1.8 K/mcL (0.6-4.6); Lymphocytes % 18.8 %; Mean Corpuscular HGB Conc 30.2 g/dL (31.6-35.5); Mean Corpuscular Hemoglobin 28.3 pg (28.0-33.3); Mean Corpuscular Volume 93.7 fL (83.0-100.0); Mean Platelet Volume 11.2 fL (9.4-12.4); Monocytes # 0.8 K/mcL (0.0-1.3); Monocytes % 8.5 %; Neutrophils # 5.9 K/mcL (1.6-8.9); Platelet Count 281 K/mcL (140-400); Red Blood Count 3.18 M/mcL (4.19-5.50); Segmented Neutrophils % 63.1 %; White Blood Count 9.4 K/mcL (4.3-11.1)
[2021-03-15 06:37] LABS: INR 1.3; Prothrombin Time 14.2 Seconds (9.4-12.1)
[2021-03-15 06:49] LABS: Calcium 8.8 mg/dL (8.6-10.3)
[2021-03-15] MEDS: carvediloL 25 MG TABLET PO SCH ×2 (07:40→18:18)
[2021-03-15] MEDS: Cholecalciferol (D-3) 1,000 UNIT (25MCG) TABLET PO SCH (07:40)
[2021-03-15] MEDS: amLODIPine 5 MG TABLET PO SCH (07:41)
[2021-03-15] MEDS: Furosemide 40 MG TABLET PO SCH (07:41)
[2021-03-15] MEDS: Lactobacillus 1 EACH CAP.SPRINK PO SCH (07:41)
[2021-03-15] MEDS: Cyanocobalamin (B-12) 1,000 MCG TABLET PO SCH (07:41)
[2021-03-15] MEDS: Piperacillin/Tazobactam 3.375 GM in 0.9 % Sodium Chloride Mini Bag 100 ML IVPB SCH (07:41)
[2021-03-15] MEDS: Insulin LISPRO 300 UNITS/3 ML VIAL SUBQ SCH ×5 (07:43→22:58)
[2021-03-15] MEDS: Insulin DETEMIR 100 UNIT/ML X5UNITS SUBQ SCH ×2 (07:43→21:52)
[2021-03-15] MEDS ORDERED: *HR* Warfarin 3 MG TABLET PO ONE (18:00)
[2021-03-15] MEDS ORDERED: Warfarin perPT PO PRN (18:00)
[2021-03-15] MEDS: DAPTOmycin 750 MG in 0.9 % Sodium Chloride 100 ML IVPB SCH (18:18)
[2021-03-15] MEDS: Acetaminophen 325 MG TABLET PO PRN (18:57)
[2021-03-15] MEDS ORDERED: *HR* Enoxaparin 150 MG/ML SYRINGE SQ SCH (20:00)
[2021-03-15] MEDS: metroNIDAZOLE 500 MG TABLET PO SCH (21:37)
[2021-03-15] MEDS ORDERED: *HR* Heparin 5,000 UNIT/ML VIAL IVP PRN ×2 (23:40)
[2021-03-15] MEDS ORDERED: *HR* Heparin 5,000 UNIT/ML VIAL IVP ONE (23:40)
[2021-03-16 00:54] LABS: Basophils # 0.1 K/mcL (0.0-0.2); Basophils % 0.6 %; Eosinophils # 0.7 K/mcL (0.0-0.6); Eosinophils % 7.1 %; Hematocrit 28.2 % (37.5-50.1); Hemoglobin 8.8 g/dL (12.9-16.9); Lymphocytes # 1.9 K/mcL (0.6-4.6); Lymphocytes % 19.7 %; Mean Corpuscular HGB Conc 31.2 g/dL (31.6-35.5); Mean Corpuscular Volume 93.1 fL (83.0-100.0); Monocytes # 0.9 K/mcL (0.0-1.3); Monocytes % 9.5 %; Platelet Count 267 K/mcL (140-400); Red Blood Count 3.03 M/mcL (4.19-5.50); Segmented Neutrophils % 62.1 %; White Blood Count 9.6 K/mcL (4.3-11.1)
[2021-03-16 00:59] LABS: BUN/Creatinine Ratio 12 (6-26); Blood Urea Nitrogen 17 mg/dL (6-20); Calcium 8.6 mg/dL (8.6-10.3); Carbon Dioxide 28 mEq/L (23-29); Chloride 103 mEq/L (98-107); Glucose 254 mg/dL (70-105); Osmolality,Calculated 298 (280-300); Potassium 3.9 mEq/L (3.5-5.1); Sodium 139 mEq/L (136-145); eGFR For African Americans > 60 (> 60); eGFR For Non-African Americans 51 (> 60)
[2021-03-16 01:10] LABS: Heparin anti-factor XA UFH < 0.04 IU/mL (0.30-0.70)
[2021-03-16 01:11] LABS: INR 1.1; Prothrombin Time 12.7 Seconds (9.4-12.1)
[2021-03-16] MEDS: Heparin 25,000UNIT/250ML 1/2NS 25,000 UNIT/250 ML IV.SOLN IVC SCH ×5 (01:16→23:02)
[2021-03-16] MEDS: metroNIDAZOLE 500 MG TABLET PO SCH ×3 (08:58→21:39)
[2021-03-16] MEDS: amLODIPine 5 MG TABLET PO SCH (08:58)
[2021-03-16] MEDS: carvediloL 25 MG TABLET PO SCH ×2 (08:58→17:17)
[2021-03-16] MEDS: Cyanocobalamin (B-12) 1,000 MCG TABLET PO SCH (08:58)
[2021-03-16] MEDS: Cholecalciferol (D-3) 1,000 UNIT (25MCG) TABLET PO SCH (08:58)
[2021-03-16] MEDS: Lactobacillus 1 EACH CAP.SPRINK PO SCH (08:58)
[2021-03-16] MEDS: Furosemide 40 MG TABLET PO SCH (08:58)
[2021-03-16] MEDS: Insulin DETEMIR 100 UNIT/ML X5UNITS SUBQ SCH ×2 (09:00→21:39)
[2021-03-16] MEDS: Insulin LISPRO 300 UNITS/3 ML VIAL SUBQ SCH ×4 (09:00→21:40)
[2021-03-16] MEDS: DAPTOmycin 750 MG in 0.9 % Sodium Chloride 100 ML IVPB SCH (16:09)
[2021-03-16] MEDS ORDERED: *HR* Warfarin 3 MG TABLET PO ONE (18:00)
[2021-03-17 04:56] LABS: Basophils % 0.4 %; Eosinophils # 0.8 K/mcL (0.0-0.6); Eosinophils % 7.6 %; Hematocrit 28.1 % (37.5-50.1); Hemoglobin 8.8 g/dL (12.9-16.9); Immature Granulocytes % 1.5 % (0-4); Lymphocytes # 2.6 K/mcL (0.6-4.6); Lymphocytes % 26.2 %; Mean Corpuscular HGB Conc 31.3 g/dL (31.6-35.5); Mean Corpuscular Hemoglobin 29.4 pg (28.0-33.3); Mean Platelet Volume 11.3 fL (9.4-12.4); Monocytes # 0.9 K/mcL (0.0-1.3); Monocytes % 8.6 %; Neutrophils # 5.6 K/mcL (1.6-8.9); Nucleated Red Blood Cells 0.4 /100 WBC (0); Platelet Count 276 K/mcL (140-400); Red Blood Count 2.99 M/mcL (4.19-5.50); Red Cell Distribution Width 14.1 % (11.5-14.5); Segmented Neutrophils % 55.7 %
[2021-03-17 05:03] LABS: INR 1.2; Prothrombin Time 13.6 Seconds (9.4-12.1)
[2021-03-17 05:24] LABS: BUN/Creatinine Ratio 15 (6-26); Blood Urea Nitrogen 20 mg/dL (6-20); Calcium 8.6 mg/dL (8.6-10.3); Carbon Dioxide 27 mEq/L (23-29); Chloride 102 mEq/L (98-107); Glucose 287 mg/dL (70-105); Osmolality,Calculated 299 (280-300); Potassium 3.9 mEq/L (3.5-5.1); Sodium 138 mEq/L (136-145); eGFR For African Americans > 60 (> 60); eGFR For Non-African Americans 57 (> 60)
[2021-03-17 05:39] LABS: Heparin anti-factor XA UFH 0.47 IU/mL (0.30-0.70)
[2021-03-17] MEDS: metroNIDAZOLE 500 MG TABLET PO SCH ×3 (08:40→21:04)
[2021-03-17] MEDS: Cyanocobalamin (B-12) 1,000 MCG TABLET PO SCH (08:40)
[2021-03-17] MEDS: carvediloL 25 MG TABLET PO SCH ×2 (08:40→16:58)
[2021-03-17] MEDS: amLODIPine 5 MG TABLET PO SCH (08:40)
[2021-03-17] MEDS: Furosemide 40 MG TABLET PO SCH (08:41)
[2021-03-17] MEDS: Insulin LISPRO 300 UNITS/3 ML VIAL SUBQ SCH ×4 (08:41→21:04)
[2021-03-17] MEDS: Lactobacillus 1 EACH CAP.SPRINK PO SCH (08:41)
[2021-03-17] MEDS: Insulin DETEMIR 100 UNIT/ML X5UNITS SUBQ SCH ×2 (08:45→21:04)
[2021-03-17] MEDS: Cholecalciferol (D-3) 1,000 UNIT (25MCG) TABLET PO SCH (08:45)
[2021-03-17] MEDS: Heparin 25,000UNIT/250ML 1/2NS 25,000 UNIT/250 ML IV.SOLN IVC SCH ×2 (13:35)
[2021-03-17] MEDS: DAPTOmycin 750 MG in 0.9 % Sodium Chloride 100 ML IVPB SCH (17:00)
[2021-03-17] MEDS ORDERED: *HR* Warfarin 3 MG TABLET PO ONE (18:00)
[2021-03-18] MEDS: Acetaminophen 325 MG TABLET PO PRN ×2 (00:33→19:40)
[2021-03-18 01:04] LABS: Basophils # 0.1 K/mcL (0.0-0.2); Basophils % 0.5 %; Eosinophils # 0.8 K/mcL (0.0-0.6); Eosinophils % 8.2 %; Hematocrit 29.6 % (37.5-50.1); Hemoglobin 9.1 g/dL (12.9-16.9); Immature Granulocytes % 1.1 % (0-4); Lymphocytes # 2.2 K/mcL (0.6-4.6); Lymphocytes % 23.1 %; Mean Corpuscular HGB Conc 30.7 g/dL (31.6-35.5); Mean Corpuscular Hemoglobin 28.6 pg (28.0-33.3); Mean Corpuscular Volume 93.1 fL (83.0-100.0); Mean Platelet Volume 11.4 fL (9.4-12.4); Monocytes # 0.6 K/mcL (0.0-1.3); Monocytes % 6.1 %; Neutrophils # 5.7 K/mcL (1.6-8.9); Nucleated Red Blood Cells 0.4 /100 WBC (0); Platelet Count 268 K/mcL (140-400); Red Blood Count 3.18 M/mcL (4.19-5.50); Red Cell Distribution Width 14.1 % (11.5-14.5); White Blood Count 9.3 K/mcL (4.3-11.1)
[2021-03-18 01:14] LABS: Heparin anti-factor XA UFH 0.68 IU/mL (0.30-0.70)
[2021-03-18] MEDS: Heparin 25,000UNIT/250ML 1/2NS 25,000 UNIT/250 ML IV.SOLN IVC SCH ×2 (01:30→14:39)
[2021-03-18 01:44] LABS: BUN/Creatinine Ratio 14 (6-26); Blood Urea Nitrogen 20 mg/dL (6-20); Calcium 8.9 mg/dL (8.6-10.3); Carbon Dioxide 28 mEq/L (23-29); Chloride 101 mEq/L (98-107); Glucose 275 mg/dL (70-105); Osmolality,Calculated 296 (280-300); Sodium 137 mEq/L (136-145); eGFR For African Americans > 60 (> 60); eGFR For Non-African Americans 52 (> 60)
[2021-03-18] MEDS: carvediloL 25 MG TABLET PO SCH ×2 (08:36→16:39)
[2021-03-18] MEDS: amLODIPine 5 MG TABLET PO SCH (08:36)
[2021-03-18] MEDS: Cyanocobalamin (B-12) 1,000 MCG TABLET PO SCH (08:36)
[2021-03-18] MEDS: Furosemide 40 MG TABLET PO SCH (08:37)
[2021-03-18] MEDS: Cholecalciferol (D-3) 1,000 UNIT (25MCG) TABLET PO SCH (08:37)
[2021-03-18] MEDS: metroNIDAZOLE 500 MG TABLET PO SCH ×3 (08:37→19:40)
[2021-03-18] MEDS: Insulin LISPRO 300 UNITS/3 ML VIAL SUBQ SCH ×4 (08:37→19:41)
[2021-03-18] MEDS: Lactobacillus 1 EACH CAP.SPRINK PO SCH (08:37)
[2021-03-18] MEDS: Insulin DETEMIR 100 UNIT/ML X5UNITS SUBQ SCH ×2 (08:41→19:40)
[2021-03-18 09:07] LABS: INR 1.3; Prothrombin Time 14.3 Seconds (9.4-12.1)
[2021-03-18] MEDS: DAPTOmycin 750 MG in 0.9 % Sodium Chloride 100 ML IVPB SCH (16:40)
[2021-03-18] MEDS ORDERED: *HR* Warfarin 4 MG TABLET PO ONE (18:00)
[2021-03-19] MEDS: Heparin 25,000UNIT/250ML 1/2NS 25,000 UNIT/250 ML IV.SOLN IVC SCH ×2 (02:45→16:08)
[2021-03-19 03:11] LABS: INR 1.4; Prothrombin Time 15.8 Seconds (9.4-12.1)
[2021-03-19] MEDS: Lactobacillus 1 EACH CAP.SPRINK PO SCH (08:12)
[2021-03-19] MEDS: metroNIDAZOLE 500 MG TABLET PO SCH (08:12)
[2021-03-19] MEDS: Furosemide 40 MG TABLET PO SCH (08:12)
[2021-03-19] MEDS: carvediloL 25 MG TABLET PO SCH ×2 (08:13→16:13)
[2021-03-19] MEDS: Cholecalciferol (D-3) 1,000 UNIT (25MCG) TABLET PO SCH (08:13)
[2021-03-19] MEDS: amLODIPine 5 MG TABLET PO SCH (08:13)
[2021-03-19] MEDS: Cyanocobalamin (B-12) 1,000 MCG TABLET PO SCH (08:13)
[2021-03-19] MEDS: Insulin LISPRO 300 UNITS/3 ML VIAL SUBQ SCH ×4 (08:19→20:27)
[2021-03-19] MEDS: Insulin DETEMIR 100 UNIT/ML X5UNITS SUBQ SCH ×2 (08:19→20:29)
[2021-03-19] MEDS: DAPTOmycin 750 MG in 0.9 % Sodium Chloride 100 ML IVPB SCH (16:08)
[2021-03-19] MEDS ORDERED: *HR* Warfarin 4 MG TABLET PO ONE (18:00)
[2021-03-20] MEDS: Heparin 25,000UNIT/250ML 1/2NS 25,000 UNIT/250 ML IV.SOLN IVC SCH ×4 (02:57→21:05)
[2021-03-20 05:07] LABS: Basophils # 0.1 K/mcL (0.0-0.2); Basophils % 0.6 %; Eosinophils # 0.9 K/mcL (0.0-0.6); Eosinophils % 9.1 %; Hematocrit 30.4 % (37.5-50.1); Immature Granulocytes % 1.3 % (0-4); Lymphocytes # 2.5 K/mcL (0.6-4.6); Lymphocytes % 25.5 %; Mean Corpuscular HGB Conc 29.6 g/dL (31.6-35.5); Mean Corpuscular Volume 94.4 fL (83.0-100.0); Mean Platelet Volume 11.3 fL (9.4-12.4); Monocytes % 10.1 %; Neutrophils # 5.3 K/mcL (1.6-8.9); Nucleated Red Blood Cells 0.3 /100 WBC (0); Platelet Count 254 K/mcL (140-400); Red Blood Count 3.22 M/mcL (4.19-5.50); Red Cell Distribution Width 14.5 % (11.5-14.5); Segmented Neutrophils % 53.4 %; White Blood Count 9.9 K/mcL (4.3-11.1)
[2021-03-20 05:21] LABS: Calcium 8.9 mg/dL (8.6-10.3)
[2021-03-20 05:37] LABS: INR 1.6; Prothrombin Time 17.8 Seconds (9.4-12.1)
[2021-03-20] MEDS: Cholecalciferol (D-3) 1,000 UNIT (25MCG) TABLET PO SCH (08:31)
[2021-03-20] MEDS: carvediloL 25 MG TABLET PO SCH ×2 (08:32→17:34)
[2021-03-20] MEDS: Cyanocobalamin (B-12) 1,000 MCG TABLET PO SCH (08:32)
[2021-03-20] MEDS: amLODIPine 5 MG TABLET PO SCH (08:32)
[2021-03-20] MEDS: Lactobacillus 1 EACH CAP.SPRINK PO SCH (08:33)
[2021-03-20] MEDS: Furosemide 40 MG TABLET PO SCH (08:33)
[2021-03-20] MEDS: Insulin DETEMIR 100 UNIT/ML X5UNITS SUBQ SCH ×2 (08:34→22:52)
[2021-03-20] MEDS: Insulin LISPRO 300 UNITS/3 ML VIAL SUBQ SCH ×4 (08:34→22:53)
[2021-03-20] MEDS: DAPTOmycin 750 MG in 0.9 % Sodium Chloride 100 ML IVPB SCH (17:36)
[2021-03-20] MEDS ORDERED: *HR* Warfarin 4 MG TABLET PO ONE (18:00)
[2021-03-21] MEDS: Heparin 25,000UNIT/250ML 1/2NS 25,000 UNIT/250 ML IV.SOLN IVC SCH ×2 (05:26→20:49)
[2021-03-21 05:58] LABS: INR 1.8; Prothrombin Time 19.7 Seconds (9.4-12.1)
[2021-03-21 06:34] LABS: Calcium 9.2 mg/dL (8.6-10.3)
[2021-03-21] MEDS: amLODIPine 5 MG TABLET PO SCH (08:21)
[2021-03-21] MEDS: Cholecalciferol (D-3) 1,000 UNIT (25MCG) TABLET PO SCH (08:21)
[2021-03-21] MEDS: Lactobacillus 1 EACH CAP.SPRINK PO SCH (08:21)
[2021-03-21] MEDS: Furosemide 40 MG TABLET PO SCH (08:21)
[2021-03-21] MEDS: carvediloL 25 MG TABLET PO SCH ×2 (08:22→17:18)
[2021-03-21] MEDS: Cyanocobalamin (B-12) 1,000 MCG TABLET PO SCH (08:22)
[2021-03-21] MEDS: Insulin DETEMIR 100 UNIT/ML X5UNITS SUBQ SCH ×2 (08:22→20:51)
[2021-03-21] MEDS: Insulin LISPRO 300 UNITS/3 ML VIAL SUBQ SCH ×4 (08:23→20:50)
[2021-03-21] MEDS: DAPTOmycin 750 MG in 0.9 % Sodium Chloride 100 ML IVPB SCH (17:18)
[2021-03-21] MEDS ORDERED: *HR* Warfarin 4 MG TABLET PO ONE (18:00)
[2021-03-22] MEDS: Heparin 25,000UNIT/250ML 1/2NS 25,000 UNIT/250 ML IV.SOLN IVC SCH ×2 (02:32→12:36)
[2021-03-22 05:09] LABS: Basophils # 0.1 K/mcL (0.0-0.2); Basophils % 0.9 %; Eosinophils # 0.7 K/mcL (0.0-0.6); Eosinophils % 7.5 %; Hematocrit 31.1 % (37.5-50.1); Hemoglobin 9.3 g/dL (12.9-16.9); Immature Granulocytes % 1.5 % (0-4); Lymphocytes # 2.5 K/mcL (0.6-4.6); Lymphocytes % 28.7 %; Mean Corpuscular HGB Conc 29.9 g/dL (31.6-35.5); Mean Corpuscular Hemoglobin 28.3 pg (28.0-33.3); Mean Corpuscular Volume 94.5 fL (83.0-100.0); Mean Platelet Volume 11.8 fL (9.4-12.4); Monocytes # 0.9 K/mcL (0.0-1.3); Monocytes % 9.8 %; Neutrophils # 4.5 K/mcL (1.6-8.9); Nucleated Red Blood Cells 0.2 /100 WBC (0); Platelet Count 243 K/mcL (140-400); Red Blood Count 3.29 M/mcL (4.19-5.50); Red Cell Distribution Width 14.6 % (11.5-14.5); Segmented Neutrophils % 51.6 %; White Blood Count 8.8 K/mcL (4.3-11.1)
[2021-03-22 05:15] LABS: INR 1.8; Prothrombin Time 20.4 Seconds (9.4-12.1)
[2021-03-22 05:31] LABS: Calcium 8.9 mg/dL (8.6-10.3); Potassium 4.4 mEq/L (3.5-5.1)
[2021-03-22] MEDS: Cholecalciferol (D-3) 1,000 UNIT (25MCG) TABLET PO SCH (08:15)
[2021-03-22] MEDS: Insulin LISPRO 300 UNITS/3 ML VIAL SUBQ SCH ×4 (08:15→20:00)
[2021-03-22] MEDS: Insulin DETEMIR 100 UNIT/ML X5UNITS SUBQ SCH ×2 (08:15→19:59)
[2021-03-22] MEDS: Lactobacillus 1 EACH CAP.SPRINK PO SCH (08:16)
[2021-03-22] MEDS: carvediloL 25 MG TABLET PO SCH ×2 (08:16→18:09)
[2021-03-22] MEDS: Furosemide 40 MG TABLET PO SCH (08:16)
[2021-03-22] MEDS: amLODIPine 5 MG TABLET PO SCH (08:16)
[2021-03-22] MEDS: Cyanocobalamin (B-12) 1,000 MCG TABLET PO SCH (08:16)
[2021-03-22] MEDS: Acetaminophen 325 MG TABLET PO PRN (12:37)
[2021-03-22] MEDS: DAPTOmycin 750 MG in 0.9 % Sodium Chloride 100 ML IVPB SCH (15:45)
[2021-03-22] MEDS ORDERED: *HR* Warfarin 10 MG TABLET PO ONE (18:00)
[2021-03-23] MEDS: Heparin 25,000UNIT/250ML 1/2NS 25,000 UNIT/250 ML IV.SOLN IVC SCH ×2 (03:51→19:26)
[2021-03-23 05:03] LABS: Basophils # 0.1 K/mcL (0.0-0.2); Basophils % 0.9 %; Eosinophils # 0.6 K/mcL (0.0-0.6); Hematocrit 31.5 % (37.5-50.1); Hemoglobin 9.9 g/dL (12.9-16.9); Immature Granulocytes % 1.1 % (0-4); Lymphocytes # 2.2 K/mcL (0.6-4.6); Lymphocytes % 28.3 %; Mean Corpuscular HGB Conc 31.4 g/dL (31.6-35.5); Mean Corpuscular Hemoglobin 29.5 pg (28.0-33.3); Mean Corpuscular Volume 93.8 fL (83.0-100.0); Mean Platelet Volume 11.8 fL (9.4-12.4); Monocytes # 0.7 K/mcL (0.0-1.3); Monocytes % 8.6 %; Neutrophils # 4.3 K/mcL (1.6-8.9); Nucleated Red Blood Cells 0.3 /100 WBC (0); Platelet Count 233 K/mcL (140-400); Red Blood Count 3.36 M/mcL (4.19-5.50); Red Cell Distribution Width 14.5 % (11.5-14.5); Segmented Neutrophils % 54.1 %; White Blood Count 7.9 K/mcL (4.3-11.1)
[2021-03-23 05:22] LABS: C-Reactive Protein 11 mg/L (Less than 10); Creatine Kinase 40 Units/L (30-223)
[2021-03-23 05:24] LABS: INR 1.8; Prothrombin Time 20.3 Seconds (9.4-12.1)
[2021-03-23 05:25] LABS: Calcium 9.3 mg/dL (8.6-10.3); Potassium 4.2 mEq/L (3.5-5.1)
[2021-03-23] MEDS: carvediloL 25 MG TABLET PO SCH ×2 (08:17→16:58)
[2021-03-23] MEDS: Cholecalciferol (D-3) 1,000 UNIT (25MCG) TABLET PO SCH (08:17)
[2021-03-23] MEDS: Furosemide 40 MG TABLET PO SCH (08:17)
[2021-03-23] MEDS: amLODIPine 5 MG TABLET PO SCH (08:17)
[2021-03-23] MEDS: Insulin LISPRO 300 UNITS/3 ML VIAL SUBQ SCH ×4 (08:18→19:28)
[2021-03-23] MEDS: Cyanocobalamin (B-12) 1,000 MCG TABLET PO SCH (08:18)
[2021-03-23] MEDS: Lactobacillus 1 EACH CAP.SPRINK PO SCH (08:18)
[2021-03-23] MEDS: Insulin DETEMIR 100 UNIT/ML X5UNITS SUBQ SCH ×2 (08:29→19:27)
[2021-03-23] MEDS: DAPTOmycin 750 MG in 0.9 % Sodium Chloride 100 ML IVPB SCH (16:58)
[2021-03-23] MEDS: Acetaminophen 325 MG TABLET PO PRN (17:06)
[2021-03-23] MEDS ORDERED: *HR* Warfarin 10 MG TABLET PO ONE (18:00)
[2021-03-24 05:09] LABS: Basophils # 0.1 K/mcL (0.0-0.2); Basophils % 0.8 %; Eosinophils # 0.7 K/mcL (0.0-0.6); Eosinophils % 8.1 %; Hematocrit 32.5 % (37.5-50.1); Hemoglobin 10.1 g/dL (12.9-16.9); Immature Granulocytes % 1.3 % (0-4); Lymphocytes # 2.2 K/mcL (0.6-4.6); Lymphocytes % 26.5 %; Mean Corpuscular HGB Conc 31.1 g/dL (31.6-35.5); Mean Corpuscular Hemoglobin 29.4 pg (28.0-33.3); Mean Corpuscular Volume 94.5 fL (83.0-100.0); Mean Platelet Volume 11.8 fL (9.4-12.4); Monocytes # 0.8 K/mcL (0.0-1.3); Monocytes % 9.5 %; Neutrophils # 4.4 K/mcL (1.6-8.9); Nucleated Red Blood Cells 0.2 /100 WBC (0); Platelet Count 218 K/mcL (140-400); Red Blood Count 3.44 M/mcL (4.19-5.50); Red Cell Distribution Width 14.6 % (11.5-14.5); Segmented Neutrophils % 53.8 %; White Blood Count 8.2 K/mcL (4.3-11.1)
[2021-03-24 05:17] LABS: Prothrombin Time 22.1 Seconds (9.4-12.1)
[2021-03-24 05:22] LABS: BUN/Creatinine Ratio 14 (6-26); Blood Urea Nitrogen 21 mg/dL (6-20); Calcium 9.4 mg/dL (8.6-10.3); Carbon Dioxide 31 mEq/L (23-29); Chloride 97 mEq/L (98-107); Glucose 246 mg/dL (70-105); Osmolality,Calculated 293 (280-300); Potassium 4.1 mEq/L (3.5-5.1); Sodium 136 mEq/L (136-145); eGFR For African Americans > 60 (> 60); eGFR For Non-African Americans 50 (> 60)
[2021-03-24 07:54] VITALS: BP 128/75; PULSE 72; TEMP 97.7; O2SAT 91
[2021-03-24] MEDS: Cyanocobalamin (B-12) 1,000 MCG TABLET PO SCH (09:00)
[2021-03-24] MEDS: amLODIPine 5 MG TABLET PO SCH (09:00)
[2021-03-24] MEDS: Furosemide 40 MG TABLET PO SCH (09:01)
[2021-03-24] MEDS: Insulin LISPRO 300 UNITS/3 ML VIAL SUBQ SCH (09:01)
[2021-03-24] MEDS: carvediloL 25 MG TABLET PO SCH (09:01)
[2021-03-24] MEDS: Cholecalciferol (D-3) 1,000 UNIT (25MCG) TABLET PO SCH (09:01)
[2021-03-24] MEDS: Insulin DETEMIR 100 UNIT/ML X5UNITS SUBQ SCH (09:01)
[2021-03-24] MEDS: Lactobacillus 1 EACH CAP.SPRINK PO SCH (09:01)
[2021-03-24] MEDS ORDERED: *HR* Warfarin 4 MG TABLET PO ONE (18:00)
== END 2021-03-24 11:04 | disposition home health service (06) | DRG 629 ==
LOC: SUATTDRO → 4WAOSI 10:57 → EMEROOARM 10:57 → 4WAOSI 15:39 → SUATTDRO 17:31
PROVIDERS: ADMIT Family Medicine; ATTEND Family Medicine

== ENCOUNTER 2021-04-09 09:34 | Inpatient (IN) ==
[2021-04-09 11:15] LABS: Basophils % 0.4 %; Eosinophils # 0.4 K/mcL (0.0-0.6); Eosinophils % 3.7 %; Hematocrit 30.8 % (37.5-50.1); Hemoglobin 9.2 g/dL (12.9-16.9); Immature Granulocytes % 0.4 % (0-4); Lymphocytes # 1.6 K/mcL (0.6-4.6); Lymphocytes % 15.7 %; Mean Corpuscular HGB Conc 29.9 g/dL (31.6-35.5); Mean Corpuscular Volume 93.9 fL (83.0-100.0); Mean Platelet Volume 10.2 fL (9.4-12.4); Monocytes # 0.9 K/mcL (0.0-1.3); Monocytes % 8.7 %; Neutrophils # 7.3 K/mcL (1.6-8.9); Platelet Count 303 K/mcL (140-400); Red Blood Count 3.28 M/mcL (4.19-5.50); Red Cell Distribution Width 14.1 % (11.5-14.5); Segmented Neutrophils % 71.1 %; White Blood Count 10.3 K/mcL (4.3-11.1)
[2021-04-09 11:22] LABS: INR 1.7; Prothrombin Time 19.4 Seconds (9.4-12.1)
[2021-04-09 11:35] LABS: Calcium 8.7 mg/dL (8.6-10.3); Potassium 3.8 mEq/L (3.5-5.1)
[2021-04-09] MEDS ORDERED: Gadolinium Contrast Agent (WT Based) IV PRN (12:19)
[2021-04-09] MEDS ORDERED: Naloxone 0.4 MG/ML INJ IVP PRN (12:52)
[2021-04-09] MEDS ORDERED: *HR* Dextrose 50 % in Water (Syg) 50 ML SYRINGE IVP PRN (12:53)
[2021-04-09] MEDS ORDERED: Dextrose Gel 15 GM/37.5 ML TUBE PO PRN ×2 (12:53)
[2021-04-09] MEDS ORDERED: D5% in Water 1,000 ML IVC PRN (12:53)
[2021-04-09] MEDS: *HR* Heparin 5,000 UNIT/ML VIAL SQ SCH (16:58)
[2021-04-09] MEDS: Insulin LISPRO 300 UNITS/3 ML VIAL SUBQ SCH ×2 (16:58→19:54)
[2021-04-09] MEDS ORDERED: Acetaminophen 325 MG TABLET PO PRN (23:41)
[2021-04-10] MEDS: carvediloL 25 MG TABLET PO SCH ×3 (00:12→16:13)
[2021-04-10] MEDS: *HR* Heparin 5,000 UNIT/ML VIAL SQ SCH ×3 (00:13→16:13)
[2021-04-10] MEDS: Insulin LISPRO 300 UNITS/3 ML VIAL SUBQ SCH ×4 (07:32→20:29)
[2021-04-10] MEDS ORDERED: Furosemide 40 MG TABLET PO SCH ×2 (08:00→18:00)
[2021-04-10] MEDS ORDERED: DAPTOmycin 750 MG in 0.9 % Sodium Chloride 100 ML IVPB SCH (09:00)
[2021-04-10] MEDS ORDERED: DAPTOmycin 500 MG VIAL IVPB SCH (09:00)
[2021-04-10] MEDS ORDERED: Cyanocobalamin (B-12) 1,000 MCG TABLET PO SCH (09:00)
[2021-04-10] MEDS ORDERED: amLODIPine 5 MG TABLET PO SCH (09:00)
[2021-04-10] MEDS: Cholecalciferol (D-3) 1,000 UNIT (25MCG) TABLET PO SCH ×2 (09:10→20:27)
[2021-04-10] MEDS: Piperacillin/Tazobactam 3.375 GM in 0.9 % Sodium Chloride Mini Bag 100 ML IVPB SCH ×2 (09:12→16:14)
[2021-04-10] MEDS: Insulin DETEMIR 100 UNIT/ML X5UNITS SUBQ SCH ×2 (09:14→20:28)
[2021-04-10 11:53] LABS: Basophils % 0.5 %; Eosinophils # 0.2 K/mcL (0.0-0.6); Eosinophils % 3.8 %; Hematocrit 28.5 % (37.5-50.1); Hemoglobin 8.8 g/dL (12.9-16.9); Immature Granulocytes % 0.5 % (0-4); Lymphocytes # 1.2 K/mcL (0.6-4.6); Lymphocytes % 19.6 %; Mean Corpuscular HGB Conc 30.9 g/dL (31.6-35.5); Mean Corpuscular Hemoglobin 28.7 pg (28.0-33.3); Mean Corpuscular Volume 92.8 fL (83.0-100.0); Mean Platelet Volume 10.1 fL (9.4-12.4); Monocytes # 0.5 K/mcL (0.0-1.3); Monocytes % 8.4 %; Neutrophils # 4.1 K/mcL (1.6-8.9); Platelet Count 290 K/mcL (140-400); Red Blood Count 3.07 M/mcL (4.19-5.50); Red Cell Distribution Width 14.1 % (11.5-14.5); Segmented Neutrophils % 67.2 %; White Blood Count 6.1 K/mcL (4.3-11.1)
[2021-04-10 12:08] LABS: Calcium 8.6 mg/dL (8.6-10.3); Potassium 4.1 mEq/L (3.5-5.1)
[2021-04-10] MEDS: Ipratropium/Albuterol Neb 3 ML IH SCH (23:44)
[2021-04-11] MEDS: Piperacillin/Tazobactam 3.375 GM in 0.9 % Sodium Chloride Mini Bag 100 ML IVPB SCH ×3 (00:26→23:45)
[2021-04-11] MEDS: *HR* Heparin 5,000 UNIT/ML VIAL SQ SCH ×3 (00:26→23:45)
[2021-04-11] MEDS: Ipratropium/Albuterol Neb 3 ML IH SCH ×5 (04:03→21:00)
[2021-04-11 04:45] LABS: Basophils % 0.3 %; Eosinophils # 0.2 K/mcL (0.0-0.6); Eosinophils % 3.4 %; Hematocrit 27.9 % (37.5-50.1); Hemoglobin 8.8 g/dL (12.9-16.9); Immature Granulocytes % 0.4 % (0-4); Lymphocytes # 0.7 K/mcL (0.6-4.6); Lymphocytes % 10.2 %; Mean Corpuscular HGB Conc 31.5 g/dL (31.6-35.5); Mean Corpuscular Hemoglobin 28.8 pg (28.0-33.3); Mean Corpuscular Volume 91.2 fL (83.0-100.0); Mean Platelet Volume 10.4 fL (9.4-12.4); Monocytes # 0.7 K/mcL (0.0-1.3); Monocytes % 10.3 %; Neutrophils # 5.4 K/mcL (1.6-8.9); Platelet Count 328 K/mcL (140-400); Red Blood Count 3.06 M/mcL (4.19-5.50); Red Cell Distribution Width 14.1 % (11.5-14.5); Segmented Neutrophils % 75.4 %; White Blood Count 7.2 K/mcL (4.3-11.1)
[2021-04-11 05:04] LABS: Calcium 8.5 mg/dL (8.6-10.3); Potassium 4.1 mEq/L (3.5-5.1)
[2021-04-11] MEDS: carvediloL 25 MG TABLET PO SCH ×2 (06:23→17:41)
[2021-04-11] MEDS ORDERED: Lidocaine -MPF 2% 5 ML VIAL ONE (07:19)
[2021-04-11] MEDS ORDERED: *HR* Propofol 200 MG/20 ML VIAL IVP ONE (07:19)
[2021-04-11] MEDS ORDERED: *HR* Succinylcholine 200 MG/10 ML VIAL IVP ONE (07:19)
[2021-04-11] MEDS: Insulin LISPRO 300 UNITS/3 ML VIAL SUBQ SCH ×4 (07:23→19:59)
[2021-04-11] MEDS ORDERED: Bupivacaine-MPF 0.25% 10 ML VIAL ONE (07:25)
[2021-04-11] MEDS ORDERED: Lidocaine 1% 20 ML MDV ONE (07:25)
[2021-04-11] MEDS ORDERED: Vancomycin 1,000 MG VIAL ONE (07:25)
[2021-04-11] MEDS ORDERED: Bupivacaine/EPI 1:200k 0.25% 50 ML VIAL ONE (07:50)
[2021-04-11] MEDS ORDERED: Gentamicin 80 MG/2 ML VIAL ONE (07:50)
[2021-04-11] MEDS ORDERED: *HR* FentaNYL (PF) 100 MCG/2 ML VIAL ONE (08:11)
[2021-04-11] MEDS ORDERED: *HR* Midazolam HCl 2 MG/2 ML VIAL ONE (08:15)
[2021-04-11] MEDS ORDERED: flumazeniL 0.5 MG/5 ML VIAL IVP ONE (08:19)
[2021-04-11] MEDS ORDERED: Furosemide 40 MG TABLET PO SCH (09:00)
[2021-04-11] MEDS ORDERED: Naloxone 0.4 MG/ML INJ IVP PRN (09:05)
[2021-04-11] MEDS ORDERED: D5% in Water 1,000 ML IVC PRN (09:05)
[2021-04-11] MEDS ORDERED: *HR* Dextrose 50 % in Water (Syg) 50 ML SYRINGE IVP PRN (09:05)
[2021-04-11] MEDS ORDERED: Gadolinium Contrast Agent (WT Based) IV PRN (09:05)
[2021-04-11] MEDS ORDERED: Acetaminophen 325 MG TABLET PO PRN (09:05)
[2021-04-11] MEDS ORDERED: Dextrose Gel 15 GM/37.5 ML TUBE PO PRN ×2 (09:05)
[2021-04-11] MEDS: Furosemide 40 MG TABLET PO SCH (17:42)
[2021-04-11] MEDS: Cholecalciferol (D-3) 1,000 UNIT (25MCG) TABLET PO SCH (19:59)
[2021-04-11] MEDS: Insulin DETEMIR 100 UNIT/ML X5UNITS SUBQ SCH (19:59)
[2021-04-12] MEDS: Ipratropium/Albuterol Neb 3 ML IH SCH ×4 (04:16→22:52)
[2021-04-12 05:02] LABS: Basophils % 0.3 %; Eosinophils % 0.2 %; Hematocrit 26.8 % (37.5-50.1); Hemoglobin 8.3 g/dL (12.9-16.9); Immature Granulocytes % 1.1 % (0-4); Lymphocytes % 11.3 %; Mean Corpuscular Hemoglobin 28.3 pg (28.0-33.3); Mean Corpuscular Volume 91.5 fL (83.0-100.0); Mean Platelet Volume 10.5 fL (9.4-12.4); Monocytes # 0.6 K/mcL (0.0-1.3); Monocytes % 6.4 %; Neutrophils # 7.1 K/mcL (1.6-8.9); Platelet Count 324 K/mcL (140-400); Red Blood Count 2.93 M/mcL (4.19-5.50); Red Cell Distribution Width 13.8 % (11.5-14.5); Segmented Neutrophils % 80.7 %; White Blood Count 8.8 K/mcL (4.3-11.1)
[2021-04-12 05:21] LABS: BUN/Creatinine Ratio 11 (6-26); Blood Urea Nitrogen 17 mg/dL (6-20); Calcium 8.6 mg/dL (8.6-10.3); Carbon Dioxide 27 mEq/L (23-29); Chloride 101 mEq/L (98-107); Glucose 295 mg/dL (70-105); Osmolality,Calculated 300 (280-300); Potassium 4.6 mEq/L (3.5-5.1); Sodium 139 mEq/L (136-145); eGFR For African Americans > 60 (> 60); eGFR For Non-African Americans 50 (> 60)
[2021-04-12] MEDS: Cholecalciferol (D-3) 1,000 UNIT (25MCG) TABLET PO SCH ×2 (09:23→20:11)
[2021-04-12] MEDS: Furosemide 40 MG TABLET PO SCH ×2 (09:24→17:52)
[2021-04-12] MEDS: Cyanocobalamin (B-12) 1,000 MCG TABLET PO SCH (09:24)
[2021-04-12] MEDS: carvediloL 25 MG TABLET PO SCH ×2 (09:24→17:51)
[2021-04-12] MEDS: *HR* Heparin 5,000 UNIT/ML VIAL SQ SCH ×2 (09:25→17:53)
[2021-04-12] MEDS: amLODIPine 5 MG TABLET PO SCH (09:26)
[2021-04-12] MEDS: Piperacillin/Tazobactam 3.375 GM in 0.9 % Sodium Chloride Mini Bag 100 ML IVPB SCH ×2 (09:26→17:53)
[2021-04-12] MEDS: DAPTOmycin 750 MG in 0.9 % Sodium Chloride 100 ML IVPB SCH (09:31)
[2021-04-12] MEDS: Insulin DETEMIR 100 UNIT/ML X5UNITS SUBQ SCH ×2 (09:31→20:11)
[2021-04-12] MEDS: Insulin LISPRO 300 UNITS/3 ML VIAL SUBQ SCH ×4 (09:36→20:12)
[2021-04-13] MEDS: Piperacillin/Tazobactam 3.375 GM in 0.9 % Sodium Chloride Mini Bag 100 ML IVPB SCH ×3 (00:08→15:51)
[2021-04-13] MEDS: *HR* Heparin 5,000 UNIT/ML VIAL SQ SCH ×3 (00:08→15:50)
[2021-04-13] MEDS: Ipratropium/Albuterol Neb 3 ML IH SCH ×4 (04:35→23:03)
[2021-04-13] MEDS: Insulin LISPRO 300 UNITS/3 ML VIAL SUBQ SCH ×4 (07:28→21:37)
[2021-04-13] MEDS: carvediloL 25 MG TABLET PO SCH ×2 (09:05→17:31)
[2021-04-13] MEDS: amLODIPine 5 MG TABLET PO SCH (09:06)
[2021-04-13] MEDS: Cyanocobalamin (B-12) 1,000 MCG TABLET PO SCH (09:06)
[2021-04-13] MEDS: Furosemide 40 MG TABLET PO SCH ×2 (09:07→17:30)
[2021-04-13] MEDS: DAPTOmycin 750 MG in 0.9 % Sodium Chloride 100 ML IVPB SCH (09:07)
[2021-04-13] MEDS: Cholecalciferol (D-3) 1,000 UNIT (25MCG) TABLET PO SCH ×2 (09:08→21:35)
[2021-04-13] MEDS: Insulin DETEMIR 100 UNIT/ML X5UNITS SUBQ SCH ×2 (09:19→21:36)
[2021-04-13] MEDS: Lactobacillus 1 EACH CAP.SPRINK PO SCH ×2 (15:52→21:35)
[2021-04-14] MEDS: *HR* Heparin 5,000 UNIT/ML VIAL SQ SCH ×2 (00:20→09:48)
[2021-04-14] MEDS: Piperacillin/Tazobactam 3.375 GM in 0.9 % Sodium Chloride Mini Bag 100 ML IVPB SCH ×3 (00:21→18:35)
[2021-04-14 04:54] LABS: Basophils # 0.1 K/mcL (0.0-0.2); Basophils % 0.7 %; Eosinophils # 0.5 K/mcL (0.0-0.6); Eosinophils % 5.4 %; Hematocrit 28.6 % (37.5-50.1); Hemoglobin 9.1 g/dL (12.9-16.9); Lymphocytes # 2.2 K/mcL (0.6-4.6); Lymphocytes % 22.2 %; Mean Corpuscular HGB Conc 31.8 g/dL (31.6-35.5); Mean Corpuscular Hemoglobin 28.9 pg (28.0-33.3); Mean Corpuscular Volume 90.8 fL (83.0-100.0); Mean Platelet Volume 10.5 fL (9.4-12.4); Monocytes # 0.8 K/mcL (0.0-1.3); Monocytes % 7.9 %; Neutrophils # 6.2 K/mcL (1.6-8.9); Nucleated Red Blood Cells 0.3 /100 WBC (0); Platelet Count 344 K/mcL (140-400); Red Blood Count 3.15 M/mcL (4.19-5.50); Red Cell Distribution Width 14.1 % (11.5-14.5); Segmented Neutrophils % 61.8 %
[2021-04-14 05:09] LABS: Potassium 3.8 mEq/L (3.5-5.1)
[2021-04-14] MEDS: Ipratropium/Albuterol Neb 3 ML IH SCH ×4 (06:58→21:11)
[2021-04-14] MEDS: DAPTOmycin 750 MG in 0.9 % Sodium Chloride 100 ML IVPB SCH (09:41)
[2021-04-14] MEDS: Insulin DETEMIR 100 UNIT/ML X5UNITS SUBQ SCH ×2 (09:41→20:50)
[2021-04-14] MEDS: Cyanocobalamin (B-12) 1,000 MCG TABLET PO SCH (09:42)
[2021-04-14] MEDS: carvediloL 25 MG TABLET PO SCH ×2 (09:42→18:45)
[2021-04-14] MEDS: Insulin LISPRO 300 UNITS/3 ML VIAL SUBQ SCH ×4 (09:42→20:49)
[2021-04-14] MEDS: amLODIPine 5 MG TABLET PO SCH (09:42)
[2021-04-14] MEDS: Cholecalciferol (D-3) 1,000 UNIT (25MCG) TABLET PO SCH ×2 (09:42→20:55)
[2021-04-14] MEDS: Furosemide 40 MG TABLET PO SCH ×2 (09:42→18:45)
[2021-04-14] MEDS: Lactobacillus 1 EACH CAP.SPRINK PO SCH ×2 (09:42→20:55)
[2021-04-14] MEDS ORDERED: Warfarin perPT PO PRN (18:00)
[2021-04-14 19:58] LABS: INR 1.3; Prothrombin Time 14.6 Seconds (9.4-12.1)
[2021-04-14] MEDS ORDERED: *HR* Warfarin 4 MG TABLET PO ONE (20:30)
[2021-04-15] MEDS: Piperacillin/Tazobactam 3.375 GM in 0.9 % Sodium Chloride Mini Bag 100 ML IVPB SCH ×2 (00:59→08:33)
[2021-04-15 05:52] LABS: Basophils # 0.1 K/mcL (0.0-0.2); Basophils % 0.9 %; Eosinophils # 0.3 K/mcL (0.0-0.6); Eosinophils % 3.3 %; Hematocrit 30.4 % (37.5-50.1); Hemoglobin 9.4 g/dL (12.9-16.9); Immature Granulocytes % 2.6 % (0-4); Lymphocytes # 1.9 K/mcL (0.6-4.6); Lymphocytes % 20.4 %; Mean Corpuscular HGB Conc 30.9 g/dL (31.6-35.5); Mean Corpuscular Hemoglobin 28.2 pg (28.0-33.3); Mean Corpuscular Volume 91.3 fL (83.0-100.0); Mean Platelet Volume 10.8 fL (9.4-12.4); Monocytes # 0.7 K/mcL (0.0-1.3); Neutrophils # 6.1 K/mcL (1.6-8.9); Nucleated Red Blood Cells 0.6 /100 WBC (0); Platelet Count 340 K/mcL (140-400); Red Blood Count 3.33 M/mcL (4.19-5.50); Red Cell Distribution Width 14.2 % (11.5-14.5); Segmented Neutrophils % 65.8 %; White Blood Count 9.3 K/mcL (4.3-11.1)
[2021-04-15 05:56] LABS: INR 1.3; Prothrombin Time 14.5 Seconds (9.4-12.1)
[2021-04-15 06:16] LABS: Calcium 9.3 mg/dL (8.6-10.3); Potassium 3.9 mEq/L (3.5-5.1)
[2021-04-15] MEDS ORDERED: Ringers Solution, Lactated 500 ML IVC ONE (07:41)
[2021-04-15] MEDS: Ipratropium/Albuterol Neb 3 ML IH SCH (08:05)
[2021-04-15] MEDS: DAPTOmycin 750 MG in 0.9 % Sodium Chloride 100 ML IVPB SCH (08:32)
[2021-04-15] MEDS: Insulin LISPRO 300 UNITS/3 ML VIAL SUBQ SCH ×4 (08:32→21:40)
[2021-04-15] MEDS: amLODIPine 5 MG TABLET PO SCH (08:34)
[2021-04-15] MEDS: Cyanocobalamin (B-12) 1,000 MCG TABLET PO SCH (08:34)
[2021-04-15] MEDS: carvediloL 25 MG TABLET PO SCH ×2 (08:34→18:24)
[2021-04-15] MEDS: Lactobacillus 1 EACH CAP.SPRINK PO SCH ×2 (08:34→21:39)
[2021-04-15] MEDS: Cholecalciferol (D-3) 1,000 UNIT (25MCG) TABLET PO SCH ×2 (08:34→21:39)
[2021-04-15] MEDS: Insulin DETEMIR 100 UNIT/ML X5UNITS SUBQ SCH ×2 (08:40→21:45)
[2021-04-15] MEDS ORDERED: Ipratropium/Albuterol Neb 3 ML IH PRN (09:52)
[2021-04-15] MEDS ORDERED: *HR* Warfarin 4 MG TABLET PO ONE (18:00)
[2021-04-15] MEDS: Cefepime HCl 2,000 MG in Water for inj. (sterile) 10 ML IVP SCH (18:24)
[2021-04-16 06:01] LABS: Basophils # 0.1 K/mcL (0.0-0.2); Basophils % 0.6 %; Eosinophils # 0.4 K/mcL (0.0-0.6); Eosinophils % 3.5 %; Hematocrit 30.3 % (37.5-50.1); Hemoglobin 9.4 g/dL (12.9-16.9); Immature Granulocytes % 2.1 % (0-4); Lymphocytes # 2.4 K/mcL (0.6-4.6); Lymphocytes % 23.8 %; Mean Corpuscular Hemoglobin 28.5 pg (28.0-33.3); Mean Corpuscular Volume 91.8 fL (83.0-100.0); Mean Platelet Volume 10.7 fL (9.4-12.4); Monocytes # 0.7 K/mcL (0.0-1.3); Monocytes % 7.1 %; Neutrophils # 6.3 K/mcL (1.6-8.9); Nucleated Red Blood Cells 0.3 /100 WBC (0); Platelet Count 324 K/mcL (140-400); Red Cell Distribution Width 14.3 % (11.5-14.5); Segmented Neutrophils % 62.9 %; White Blood Count 10.1 K/mcL (4.3-11.1)
[2021-04-16] MEDS: Cefepime HCl 2,000 MG in Water for inj. (sterile) 10 ML IVP SCH ×2 (06:11→18:09)
[2021-04-16 06:21] LABS: Calcium 9.3 mg/dL (8.6-10.3); Potassium 3.7 mEq/L (3.5-5.1)
[2021-04-16 06:52] LABS: INR 1.6
[2021-04-16] MEDS ORDERED: Ringers Solution, Lactated 1,000 ML IVC ONE (07:59)
[2021-04-16] MEDS: Insulin LISPRO 300 UNITS/3 ML VIAL SUBQ SCH ×4 (08:16→21:35)
[2021-04-16] MEDS: Cyanocobalamin (B-12) 1,000 MCG TABLET PO SCH (08:27)
[2021-04-16] MEDS: carvediloL 25 MG TABLET PO SCH ×2 (08:27→16:24)
[2021-04-16] MEDS: Lactobacillus 1 EACH CAP.SPRINK PO SCH ×2 (08:27→21:31)
[2021-04-16] MEDS: Insulin DETEMIR 100 UNIT/ML X5UNITS SUBQ SCH ×2 (08:27→21:34)
[2021-04-16] MEDS: Cholecalciferol (D-3) 1,000 UNIT (25MCG) TABLET PO SCH ×2 (08:27→21:31)
[2021-04-16] MEDS: amLODIPine 5 MG TABLET PO SCH (08:28)
[2021-04-16] MEDS: DAPTOmycin 750 MG in 0.9 % Sodium Chloride 100 ML IVPB SCH (09:22)
[2021-04-16] MEDS: metroNIDAZOLE 500 MG TABLET PO SCH ×3 (16:14→21:32)
[2021-04-16] MEDS: 0.9 % Sodium Chloride 1,000 ML IVC SCH (16:25)
[2021-04-16] MEDS ORDERED: *HR* Warfarin 4 MG TABLET PO ONE (18:00)
[2021-04-17 03:50] LABS: INR 2.2; Prothrombin Time 24.1 Seconds (9.4-12.1)
[2021-04-17 03:55] LABS: Calcium 8.8 mg/dL (8.6-10.3); Potassium 3.6 mEq/L (3.5-5.1)
[2021-04-17] MEDS: Cefepime HCl 2,000 MG in Water for inj. (sterile) 10 ML IVP SCH (06:07)
[2021-04-17] MEDS: 0.9 % Sodium Chloride 1,000 ML IVC SCH (06:10)
[2021-04-17] MEDS: Insulin LISPRO 300 UNITS/3 ML VIAL SUBQ SCH ×2 (08:54→11:44)
[2021-04-17] MEDS: carvediloL 25 MG TABLET PO SCH (08:55)
[2021-04-17] MEDS: metroNIDAZOLE 500 MG TABLET PO SCH (08:56)
[2021-04-17] MEDS: Lactobacillus 1 EACH CAP.SPRINK PO SCH (08:56)
[2021-04-17] MEDS: amLODIPine 5 MG TABLET PO SCH (08:56)
[2021-04-17] MEDS: Cholecalciferol (D-3) 1,000 UNIT (25MCG) TABLET PO SCH (08:56)
[2021-04-17] MEDS: Cyanocobalamin (B-12) 1,000 MCG TABLET PO SCH (08:57)
[2021-04-17] MEDS: DAPTOmycin 750 MG in 0.9 % Sodium Chloride 100 ML IVPB SCH (09:03)
[2021-04-17] MEDS: Insulin DETEMIR 100 UNIT/ML X5UNITS SUBQ SCH (09:06)
[2021-04-17 11:05] VITALS: BP 125/58; PULSE 79; TEMP 97.6; O2SAT 98
[2021-04-17] MEDS ORDERED: *HR* Warfarin 4 MG TABLET PO ONE (18:00)
== END 2021-04-17 17:02 | disposition home health service (06) | DRG 629 ==
LOC: EMEROOARM 09:34 → 4WAOSI 09:34 → SUATTDRO 13:34 → OBSVTOIN 13:34 → 4WAOSI 14:10
PROVIDERS: ADMIT Internal Medicine; ATTEND Internal Medicine

== ENCOUNTER 2021-05-22 09:52 | Inpatient (IN) ==
[2021-05-22] MEDS ORDERED: 0.9 % Sodium Chloride 1,000 ML IVC ONE (10:03)
[2021-05-22] MEDS ORDERED: Ipratropium/Albuterol Neb 3 ML IH ONE (10:03)
[2021-05-22 10:31] LABS: Basophils % 0.3 %; Eosinophils % 0.1 %; Hematocrit 31.1 % (37.5-50.1); Hemoglobin 9.5 g/dL (12.9-16.9); Immature Granulocytes % 0.3 % (0-4); Lymphocytes # 1.3 K/mcL (0.6-4.6); Mean Corpuscular HGB Conc 30.5 g/dL (31.6-35.5); Mean Corpuscular Hemoglobin 27.9 pg (28.0-33.3); Mean Corpuscular Volume 91.2 fL (83.0-100.0); Mean Platelet Volume 11.3 fL (9.4-12.4); Monocytes # 0.4 K/mcL (0.0-1.3); Platelet Count 204 K/mcL (140-400); Red Blood Count 3.41 M/mcL (4.19-5.50); Red Cell Distribution Width 15.3 % (11.5-14.5); Segmented Neutrophils % 82.3 %
[2021-05-22 10:33] LABS: Neutrophils # 8.1 K/mcL (1.6-8.9); White Blood Count 9.8 K/mcL (4.3-11.1)
[2021-05-22 10:44] LABS: Potassium 4.8 mEq/L (3.5-5.1)
[2021-05-22] MEDS ORDERED: Naloxone 0.4 MG/ML INJ IVP PRN (11:44)
[2021-05-22] MEDS ORDERED: Ondansetron 4 MG/2 ML VIAL IVP PRN (11:44)
[2021-05-22] MEDS ORDERED: Dextrose Gel 15 GM/37.5 ML TUBE PO PRN ×2 (11:47)
[2021-05-22] MEDS ORDERED: *HR* Dextrose 50 % in Water (Syg) 50 ML SYRINGE IVP PRN (11:47)
[2021-05-22] MEDS ORDERED: D5% in Water 1,000 ML IVC PRN (11:47)
[2021-05-22 14:07] LABS: Prothrombin Time 55.6 Seconds (9.4-12.1)
[2021-05-22] MEDS ORDERED: DAPTOmycin 750 MG in 0.9 % Sodium Chloride 100 ML IVPB SCH (16:00)
[2021-05-22] MEDS ORDERED: Warfarin perPT PO PRN (18:00)
[2021-05-22] MEDS ORDERED: Acetaminophen IV 1,000 MG/100 ML BAG IVPB ONE (18:39)
[2021-05-22] MEDS ORDERED: *HR* Labetalol 20 MG/4 ML SYRINGE IVP ONE (18:42)
[2021-05-22] MEDS ORDERED: *HR* Metoprolol 5 MG/5 ML VIAL IVP ONE ×2 (18:49→21:27)
[2021-05-22] MEDS: Cefepime HCl 1,000 MG in 0.9 % Sodium Chloride Mini Bag 100 ML IVP SCH (19:01)
[2021-05-22] MEDS: carvediloL 25 MG TABLET PO SCH (19:01)
[2021-05-22] MEDS: Insulin LISPRO 300 UNITS/3 ML VIAL SUBQ SCH (19:02)
[2021-05-22] MEDS: 0.9 % Sodium Chloride 1,000 ML IVC SCH (19:03)
[2021-05-22 19:08] LABS: ABG Base Excess -5 mEq/L (-2 to 3); ABG HCO3 20 mEq/L (21-27); ABG Oxygen Saturation 89 % (95-98); ABG PCO2 34 mmHg (35-45); ABG PH 7.38 pH Units (7.32-7.45); ABG PO2 57 mmHg (85-104); ABG TCO2 21 mEq/L (20-26)
[2021-05-22] MEDS: Cholecalciferol (D-3) 1,000 UNIT (25MCG) TABLET PO SCH (20:13)
[2021-05-22] MEDS: Insulin DETEMIR 100 UNIT/ML X5UNITS SUBQ SCH (20:22)
[2021-05-23] MEDS ORDERED: *HR* Metoprolol 5 MG/5 ML VIAL IVP ONE (03:12)
[2021-05-23] MEDS: Cefepime HCl 1,000 MG in 0.9 % Sodium Chloride Mini Bag 100 ML IVP SCH (05:31)
[2021-05-23 07:15] LABS: Basophils % 0.1 %; Hematocrit 31.6 % (37.5-50.1); Hemoglobin 9.8 g/dL (12.9-16.9); Immature Granulocytes % 0.5 % (0-4); Lymphocytes # 0.8 K/mcL (0.6-4.6); Lymphocytes % 9.3 %; Mean Corpuscular Hemoglobin 28.6 pg (28.0-33.3); Mean Corpuscular Volume 92.1 fL (83.0-100.0); Mean Platelet Volume 11.4 fL (9.4-12.4); Monocytes # 0.2 K/mcL (0.0-1.3); Monocytes % 2.8 %; Neutrophils # 7.1 K/mcL (1.6-8.9); Platelet Count 213 K/mcL (140-400); Red Blood Count 3.43 M/mcL (4.19-5.50); Red Cell Distribution Width 15.4 % (11.5-14.5); Segmented Neutrophils % 87.3 %; White Blood Count 8.1 K/mcL (4.3-11.1)
[2021-05-23 07:36] LABS: Calcium 7.8 mg/dL (8.6-10.3); Magnesium 1.6 mg/dL (1.6-2.6); Phosphorous 3.6 mg/dL (2.7-4.5)
[2021-05-23 07:37] LABS: Lactate Dehydrogenase 334 Units/L (140-271)
[2021-05-23 07:55] LABS: Ferritin 826 ng/mL (20-250)
[2021-05-23] MEDS: Cyanocobalamin (B-12) 1,000 MCG TABLET PO SCH (08:14)
[2021-05-23] MEDS: Lactobacillus 1 EACH CAP.SPRINK PO SCH (08:14)
[2021-05-23] MEDS: amLODIPine 5 MG TABLET PO SCH (08:14)
[2021-05-23] MEDS: carvediloL 25 MG TABLET PO SCH ×2 (08:14→18:22)
[2021-05-23] MEDS: Cholecalciferol (D-3) 1,000 UNIT (25MCG) TABLET PO SCH ×2 (08:14→20:32)
[2021-05-23] MEDS: Insulin LISPRO 300 UNITS/3 ML VIAL SUBQ SCH ×3 (08:15→18:24)
[2021-05-23] MEDS: Insulin DETEMIR 100 UNIT/ML X5UNITS SUBQ SCH ×2 (08:16→20:32)
[2021-05-23 08:19] LABS: INR 7.6
[2021-05-23] MEDS ORDERED: *HR* Phytonadione 10 MG/ML AMPUL SQ ONE (08:51)
[2021-05-23 09:23] LABS: C-Reactive Protein 224 mg/L (Less than 10)
[2021-05-24 00:26] LABS: Amorphous Sediment,Urine Few per hpf (None-Few); Bilirubin,Urine Negative (Negative); Blood,Urine Moderate (Negative); Clarity,Urine Turbid (Clear); Color,Urine Light-Yellow (Yellow); Glucose,Urine (UA) 50 mg/dL (Normal); Ketones,Urine Trace mg/dL (Negative); Leukocyte Esterase,Urine Negative (Negative); Mucus,Urine Few per lpf (None-Few); Nitrite,Urine Negative (Negative); Protein,Urine >=300 mg/dL (Neg-Trace); RBC,Urine 0-3 per hpf (0-3); Specific Gravity,Urine 1.016 (1.010-1.025); Squamous Epithelial Cell,Urine Few per hpf (None-Few); Urobilinogen,Urine Normal (Normal)
[2021-05-24 01:20] LABS: Protein/Creatinine Ratio,Urine 8.33 mg/mg (0.00-0.20); Sodium, Urine 21.7 mEq/L
[2021-05-24 02:47] LABS: Hematocrit 33.6 % (37.5-50.1); Mean Corpuscular HGB Conc 29.8 g/dL (31.6-35.5); Mean Corpuscular Hemoglobin 27.5 pg (28.0-33.3); Mean Corpuscular Volume 92.6 fL (83.0-100.0); Mean Platelet Volume 11.3 fL (9.4-12.4); Platelet Count 257 K/mcL (140-400); Red Blood Count 3.63 M/mcL (4.19-5.50); Red Cell Distribution Width 15.4 % (11.5-14.5)
[2021-05-24 02:49] LABS: White Blood Count 13.8 K/mcL (4.3-11.1)
[2021-05-24 03:00] LABS: INR 1.9; Prothrombin Time 20.8 Seconds (9.4-12.1)
[2021-05-24 03:03] LABS: Phosphorous 4.3 mg/dL (2.7-4.5); Uric Acid 7.3 mg/dL (2.3-7.6)
[2021-05-24 03:05] LABS: Albumin 3.5 g/dL (3.5-5.7); Albumin/Globulin Ratio 0.9 (1.1-2.2); Bilirubin,Indirect 0.3 mg/dL (0.0-1.0); Bilirubin,Total 0.3 mg/dL (0.3-1.0); Calcium 8.2 mg/dL (8.6-10.3); Globulin 3.9 g/dL (2.4-3.5); Potassium 4.9 mEq/L (3.5-5.1); Total Protein 7.4 g/dL (6.4-8.9)
[2021-05-24] MEDS: Cyanocobalamin (B-12) 1,000 MCG TABLET PO SCH (08:10)
[2021-05-24] MEDS: Lactobacillus 1 EACH CAP.SPRINK PO SCH (08:10)
[2021-05-24] MEDS: Cholecalciferol (D-3) 1,000 UNIT (25MCG) TABLET PO SCH ×2 (08:10→21:43)
[2021-05-24] MEDS: amLODIPine 5 MG TABLET PO SCH (08:10)
[2021-05-24] MEDS: carvediloL 25 MG TABLET PO SCH ×2 (08:11→17:15)
[2021-05-24] MEDS: Insulin LISPRO 300 UNITS/3 ML VIAL SUBQ SCH ×3 (08:11→16:28)
[2021-05-24 10:15] LABS: Hepatitis C Virus Antibody Nonreactive (Nonreactive)
[2021-05-24] MEDS ORDERED: Haloperidol Lactate 5 MG/ML VIAL IVP PRN (11:37)
[2021-05-24] MEDS: Insulin DETEMIR 100 UNIT/ML X5UNITS SUBQ SCH ×2 (12:04→21:42)
[2021-05-24] MEDS ORDERED: Benzonatate 100 MG CAPSULE PO PRN (12:37)
[2021-05-24 12:42] LABS: VBG HCO3 24 mEq/L (21-27); VBG PCO2 54 mmHg (41-51); VBG PH 7.25 pH Units (7.32-7.42); VBG PO2 29 mmHg (25-50)
[2021-05-24] MEDS: Dexmedetomidine HCl 400 MCG/100 ML MLS IVC SCH ×3 (13:24→21:41)
[2021-05-24 15:30] LABS: Hepatitis A Antibody IgM Nonreactive (Nonreactive)
[2021-05-24] MEDS: 0.9 % Sodium Chloride 1,000 ML IVC SCH (15:34)
[2021-05-24 16:11] LABS: Hepatitis B Core IgM Nonreactive (Nonreactive)
[2021-05-24 16:47] LABS: ABG Base Excess -4 mEq/L (-2 to 3); ABG HCO3 21 mEq/L (21-27); ABG Oxygen Saturation 92 % (95-98); ABG PCO2 41 mmHg (35-45); ABG PH 7.33 pH Units (7.32-7.45); ABG PO2 69 mmHg (85-104); ABG TCO2 23 mEq/L (20-26)
[2021-05-24 17:11] LABS: Hepatitis B Surface Antigen Nonreactive (Nonreactive)
[2021-05-24] MEDS ORDERED: *HR* Warfarin 3 MG TABLET PO ONE (18:00)
[2021-05-25] MEDS: Dexmedetomidine HCl 400 MCG/100 ML MLS IVC SCH ×3 (04:38→13:45)
[2021-05-25 06:14] LABS: Hematocrit 32.7 % (37.5-50.1); Hemoglobin 9.9 g/dL (12.9-16.9); Mean Corpuscular HGB Conc 30.3 g/dL (31.6-35.5); Mean Corpuscular Hemoglobin 27.6 pg (28.0-33.3); Mean Corpuscular Volume 91.1 fL (83.0-100.0); Mean Platelet Volume 11.5 fL (9.4-12.4); Platelet Count 285 K/mcL (140-400); Red Blood Count 3.59 M/mcL (4.19-5.50); Red Cell Distribution Width 15.5 % (11.5-14.5); White Blood Count 11.4 K/mcL (4.3-11.1)
[2021-05-25 06:24] LABS: INR 1.3; Prothrombin Time 14.1 Seconds (9.4-12.1)
[2021-05-25 06:48] LABS: Calcium 8.3 mg/dL (8.6-10.3); Potassium 4.9 mEq/L (3.5-5.1)
[2021-05-25] MEDS: carvediloL 25 MG TABLET PO SCH ×2 (07:27→17:51)
[2021-05-25] MEDS: Lactobacillus 1 EACH CAP.SPRINK PO SCH (07:27)
[2021-05-25] MEDS: Insulin LISPRO 300 UNITS/3 ML VIAL SUBQ SCH ×3 (07:27→16:53)
[2021-05-25] MEDS: Cyanocobalamin (B-12) 1,000 MCG TABLET PO SCH (07:28)
[2021-05-25] MEDS: Cholecalciferol (D-3) 1,000 UNIT (25MCG) TABLET PO SCH ×2 (07:28→20:00)
[2021-05-25] MEDS: amLODIPine 5 MG TABLET PO SCH (07:28)
[2021-05-25] MEDS: Insulin DETEMIR 100 UNIT/ML X5UNITS SUBQ SCH ×2 (07:37→20:00)
[2021-05-25] MEDS ORDERED: *HR* Heparin 5,000 UNIT/ML VIAL IVP PRN (14:39)
[2021-05-25] MEDS: Heparin 25,000UNIT/250ML 1/2NS 25,000 UNIT/250 ML IV.SOLN IVC SCH (15:42)
[2021-05-26] MEDS: Dexmedetomidine HCl 400 MCG/100 ML MLS IVC SCH ×2 (02:42→16:39)
[2021-05-26] MEDS: Heparin 25,000UNIT/250ML 1/2NS 25,000 UNIT/250 ML IV.SOLN IVC SCH ×2 (03:06→14:09)
[2021-05-26 05:49] LABS: VBG HCO3 23 mEq/L (21-27); VBG PCO2 44 mmHg (41-51); VBG PH 7.32 pH Units (7.32-7.42); VBG PO2 48 mmHg (25-50)
[2021-05-26 05:53] LABS: Hematocrit 30.5 % (37.5-50.1); Hemoglobin 9.5 g/dL (12.9-16.9); Mean Corpuscular HGB Conc 31.1 g/dL (31.6-35.5); Mean Corpuscular Hemoglobin 27.4 pg (28.0-33.3); Mean Corpuscular Volume 87.9 fL (83.0-100.0); Mean Platelet Volume 11.7 fL (9.4-12.4); Platelet Count 305 K/mcL (140-400); Red Blood Count 3.47 M/mcL (4.19-5.50); Red Cell Distribution Width 15.7 % (11.5-14.5); White Blood Count 11.3 K/mcL (4.3-11.1)
[2021-05-26 05:55] LABS: Heparin anti-factor XA UFH 0.77 IU/mL (0.30-0.70)
[2021-05-26 05:56] LABS: INR 1.3; Prothrombin Time 14.4 Seconds (9.4-12.1)
[2021-05-26 06:12] LABS: Calcium 8.2 mg/dL (8.6-10.3); Potassium 4.9 mEq/L (3.5-5.1)
[2021-05-26] MEDS ORDERED: 0.9 % Sodium Chloride 250 ML IVC PRN (07:40)
[2021-05-26] MEDS ORDERED: 0.9 % Sodium Chloride 1,000 ML PRIME SCH (07:45)
[2021-05-26] MEDS ORDERED: *HR* Heparin 10,000 UNIT/10 ML VIAL IV PRN (08:23)
[2021-05-26] MEDS: Cyanocobalamin (B-12) 1,000 MCG TABLET PO SCH (09:19)
[2021-05-26] MEDS: Lactobacillus 1 EACH CAP.SPRINK PO SCH (09:19)
[2021-05-26] MEDS: Cholecalciferol (D-3) 1,000 UNIT (25MCG) TABLET PO SCH ×2 (09:19→21:19)
[2021-05-26] MEDS: Insulin LISPRO 300 UNITS/3 ML VIAL SUBQ SCH ×3 (09:20→16:52)
[2021-05-26] MEDS: Insulin DETEMIR 100 UNIT/ML X5UNITS SUBQ SCH ×2 (09:29→21:19)
[2021-05-26] MEDS: carvediloL 25 MG TABLET PO SCH ×2 (09:30→16:42)
[2021-05-26] MEDS: amLODIPine 5 MG TABLET PO SCH (10:32)
[2021-05-26] MEDS ORDERED: *HR* Heparin 5,000 UNIT/ML VIAL ONE (10:40)
[2021-05-26] MEDS: *HR* Heparin 5,000 UNIT/ML VIAL IVP PRN (14:04)
[2021-05-26] MEDS ORDERED: *HR* Warfarin 3 MG TABLET PO ONE (18:00)
[2021-05-26] MEDS ORDERED: Warfarin perPT PO PRN (18:00)
[2021-05-27] MEDS: Heparin 25,000UNIT/250ML 1/2NS 25,000 UNIT/250 ML IV.SOLN IVC SCH ×2 (01:27→21:22)
[2021-05-27 02:37] LABS: Basophils # 0.1 K/mcL (0.0-0.2); Basophils % 0.8 %; Hematocrit 31.6 % (37.5-50.1); Hemoglobin 9.8 g/dL (12.9-16.9); Immature Granulocytes % 5.4 % (0-4); Lymphocytes # 1.1 K/mcL (0.6-4.6); Lymphocytes % 9.8 %; Mean Corpuscular Hemoglobin 27.7 pg (28.0-33.3); Mean Corpuscular Volume 89.3 fL (83.0-100.0); Mean Platelet Volume 11.8 fL (9.4-12.4); Monocytes # 0.4 K/mcL (0.0-1.3); Monocytes % 3.2 %; Nucleated Red Blood Cells 0.2 /100 WBC (0); Platelet Count 325 K/mcL (140-400); Red Blood Count 3.54 M/mcL (4.19-5.50); Red Cell Distribution Width 15.7 % (11.5-14.5); Segmented Neutrophils % 80.8 %; White Blood Count 11.1 K/mcL (4.3-11.1)
[2021-05-27 02:45] LABS: INR 1.3; Prothrombin Time 14.8 Seconds (9.4-12.1)
[2021-05-27 02:55] LABS: Platelet Estimate Normal (Normal)
[2021-05-27 04:01] LABS: Calcium 8.2 mg/dL (8.6-10.3); Potassium 4.8 mEq/L (3.5-5.1)
[2021-05-27] MEDS: Dexmedetomidine HCl 400 MCG/100 ML MLS IVC SCH (04:50)
[2021-05-27] MEDS ORDERED: 0.9 % Sodium Chloride 250 ML IVC PRN (08:01)
[2021-05-27] MEDS: Cholecalciferol (D-3) 1,000 UNIT (25MCG) TABLET PO SCH ×2 (09:18→19:58)
[2021-05-27] MEDS: carvediloL 25 MG TABLET PO SCH ×2 (09:18→17:47)
[2021-05-27] MEDS: Lactobacillus 1 EACH CAP.SPRINK PO SCH (09:18)
[2021-05-27] MEDS: Cyanocobalamin (B-12) 1,000 MCG TABLET PO SCH (09:19)
[2021-05-27] MEDS: amLODIPine 5 MG TABLET PO SCH (09:20)
[2021-05-27] MEDS: Insulin DETEMIR 100 UNIT/ML X5UNITS SUBQ SCH ×2 (09:20→20:00)
[2021-05-27] MEDS: Insulin LISPRO 300 UNITS/3 ML VIAL SUBQ SCH ×3 (09:22→17:51)
[2021-05-27] MEDS ORDERED: *HR* Heparin 10,000 UNIT/10 ML VIAL IV PRN (14:31)
[2021-05-27] MEDS: Bumetanide 1 MG/4 ML VIAL IVP SCH (15:24)
[2021-05-27] MEDS ORDERED: *HR* Warfarin 3 MG TABLET PO ONE (18:00)
[2021-05-27] MEDS: *HR* Heparin 5,000 UNIT/ML VIAL IVP PRN (22:05)
[2021-05-28 04:41] LABS: INR 1.7; Prothrombin Time 19.3 Seconds (9.4-12.1)
[2021-05-28 04:42] LABS: Hematocrit 31.6 % (37.5-50.1); Mean Corpuscular HGB Conc 31.6 g/dL (31.6-35.5); Mean Corpuscular Hemoglobin 27.8 pg (28.0-33.3); Mean Corpuscular Volume 87.8 fL (83.0-100.0); Mean Platelet Volume 11.5 fL (9.4-12.4); Nucleated Red Blood Cells 0.5 /100 WBC (0); Platelet Count 342 K/mcL (140-400); Red Cell Distribution Width 15.3 % (11.5-14.5); White Blood Count 14.6 K/mcL (4.3-11.1)
[2021-05-28 04:43] LABS: Heparin anti-factor XA UFH 1.43 IU/mL (0.30-0.70)
[2021-05-28 04:57] LABS: Calcium 8.3 mg/dL (8.6-10.3); Potassium 4.5 mEq/L (3.5-5.1)
[2021-05-28 06:01] LABS: Large Platelets Present (Not Present); Monocytes # 0.9 K/mcL (0.0-1.3); Platelet Estimate Normal (Normal)
[2021-05-28] MEDS ORDERED: 0.9 % Sodium Chloride 250 ML IVC PRN (07:09)
[2021-05-28] MEDS: Bumetanide 1 MG/4 ML VIAL IVP SCH (07:41)
[2021-05-28] MEDS: Insulin DETEMIR 100 UNIT/ML X5UNITS SUBQ SCH ×2 (07:41→20:42)
[2021-05-28] MEDS: Insulin LISPRO 300 UNITS/3 ML VIAL SUBQ SCH ×3 (07:41→16:00)
[2021-05-28] MEDS: Cyanocobalamin (B-12) 1,000 MCG TABLET PO SCH (07:42)
[2021-05-28] MEDS: amLODIPine 5 MG TABLET PO SCH ×2 (07:42→20:38)
[2021-05-28] MEDS: Lactobacillus 1 EACH CAP.SPRINK PO SCH (07:42)
[2021-05-28] MEDS: carvediloL 25 MG TABLET PO SCH ×2 (07:42→20:37)
[2021-05-28] MEDS: Cholecalciferol (D-3) 1,000 UNIT (25MCG) TABLET PO SCH ×2 (07:42→20:37)
[2021-05-28] MEDS ORDERED: *HR* Heparin 10,000 UNIT/10 ML VIAL IV PRN (15:54)
[2021-05-28] MEDS: Heparin 25,000UNIT/250ML 1/2NS 25,000 UNIT/250 ML IV.SOLN IVC SCH (16:20)
[2021-05-28] MEDS ORDERED: *HR* Warfarin 3 MG TABLET PO ONE ×2 (18:00→20:45)
[2021-05-29 02:01] LABS: Basophils % 0.1 %; Hemoglobin 9.6 g/dL (12.9-16.9); Immature Granulocytes % 14.5 % (0-4); Lymphocytes # 1.7 K/mcL (0.6-4.6); Lymphocytes % 9.8 %; Mean Corpuscular Hemoglobin 28.6 pg (28.0-33.3); Mean Corpuscular Volume 89.3 fL (83.0-100.0); Mean Platelet Volume 11.2 fL (9.4-12.4); Monocytes # 1.3 K/mcL (0.0-1.3); Monocytes % 7.7 %; Neutrophils # 11.5 K/mcL (1.6-8.9); Nucleated Red Blood Cells 0.5 /100 WBC (0); Platelet Count 328 K/mcL (140-400); Red Blood Count 3.36 M/mcL (4.19-5.50); Red Cell Distribution Width 15.3 % (11.5-14.5); Segmented Neutrophils % 67.9 %; White Blood Count 16.9 K/mcL (4.3-11.1)
[2021-05-29 02:09] LABS: INR 2.1; Prothrombin Time 23.8 Seconds (9.4-12.1)
[2021-05-29 02:17] LABS: Calcium 8.1 mg/dL (8.6-10.3); Potassium 4.3 mEq/L (3.5-5.1)
[2021-05-29 03:09] LABS: Platelet Estimate Normal (Normal)
[2021-05-29] MEDS: Bumetanide 1 MG/4 ML VIAL IVP SCH (10:04)
[2021-05-29] MEDS: Lactobacillus 1 EACH CAP.SPRINK PO SCH (10:04)
[2021-05-29] MEDS: carvediloL 25 MG TABLET PO SCH ×2 (10:04→16:39)
[2021-05-29] MEDS: Insulin DETEMIR 100 UNIT/ML X5UNITS SUBQ SCH ×2 (10:05→20:51)
[2021-05-29] MEDS: amLODIPine 5 MG TABLET PO SCH (10:05)
[2021-05-29] MEDS: Cholecalciferol (D-3) 1,000 UNIT (25MCG) TABLET PO SCH ×2 (10:07→20:51)
[2021-05-29] MEDS: Insulin LISPRO 300 UNITS/3 ML VIAL SUBQ SCH ×3 (10:08→16:39)
[2021-05-29] MEDS: Cyanocobalamin (B-12) 1,000 MCG TABLET PO SCH (10:23)
[2021-05-29] MEDS ORDERED: *HR* Warfarin 3 MG TABLET PO ONE (18:00)
[2021-05-30 04:00] LABS: Hematocrit 30.3 % (37.5-50.1); Hemoglobin 9.7 g/dL (12.9-16.9); Mean Corpuscular Hemoglobin 28.1 pg (28.0-33.3); Mean Corpuscular Volume 87.8 fL (83.0-100.0); Mean Platelet Volume 11.4 fL (9.4-12.4); Nucleated Red Blood Cells 0.3 /100 WBC (0); Platelet Count 333 K/mcL (140-400); Red Blood Count 3.45 M/mcL (4.19-5.50); White Blood Count 15.9 K/mcL (4.3-11.1)
[2021-05-30 04:10] LABS: INR 2.1; Prothrombin Time 22.8 Seconds (9.4-12.1)
[2021-05-30 04:18] LABS: Calcium 7.9 mg/dL (8.6-10.3); Potassium 4.6 mEq/L (3.5-5.1)
[2021-05-30 04:32] LABS: Lymphocytes # 1.6 K/mcL (0.6-4.6); Neutrophils # 14.3 K/mcL (1.6-8.9); Platelet Estimate Normal (Normal)
[2021-05-30] MEDS: carvediloL 25 MG TABLET PO SCH ×2 (07:22→16:27)
[2021-05-30] MEDS: amLODIPine 5 MG TABLET PO SCH (07:22)
[2021-05-30] MEDS: Bumetanide 1 MG/4 ML VIAL IVP SCH (07:23)
[2021-05-30] MEDS: Cholecalciferol (D-3) 1,000 UNIT (25MCG) TABLET PO SCH ×2 (07:23→21:41)
[2021-05-30] MEDS: Cyanocobalamin (B-12) 1,000 MCG TABLET PO SCH (07:23)
[2021-05-30] MEDS: Insulin LISPRO 300 UNITS/3 ML VIAL SUBQ SCH ×3 (07:24→16:24)
[2021-05-30] MEDS: Lactobacillus 1 EACH CAP.SPRINK PO SCH (07:24)
[2021-05-30] MEDS: Insulin DETEMIR 100 UNIT/ML X5UNITS SUBQ SCH ×2 (07:31→21:41)
[2021-05-30] MEDS ORDERED: *HR* Heparin 5,000 UNIT/ML VIAL IVP PRN (14:26)
[2021-05-30] MEDS ORDERED: *HR* Heparin 5,000 UNIT/ML VIAL IVP ONE (14:26)
[2021-05-30] MEDS ORDERED: Heparin 25,000UNIT/250ML 1/2NS 25,000 UNIT/250 ML IV.SOLN IVC SCH (14:30)
[2021-05-30 16:04] LABS: Hematocrit 31.7 % (37.5-50.1); Hemoglobin 10.2 g/dL (12.9-16.9); Mean Corpuscular HGB Conc 32.2 g/dL (31.6-35.5); Mean Corpuscular Hemoglobin 28.1 pg (28.0-33.3); Mean Corpuscular Volume 87.3 fL (83.0-100.0); Mean Platelet Volume 11.3 fL (9.4-12.4); Platelet Count 330 K/mcL (140-400); Red Blood Count 3.63 M/mcL (4.19-5.50); White Blood Count 18.6 K/mcL (4.3-11.1)
[2021-05-30 16:13] LABS: Heparin anti-factor XA UFH < 0.04 IU/mL (0.30-0.70)
[2021-05-30 16:14] LABS: INR 1.9; Prothrombin Time 20.6 Seconds (9.4-12.1)
[2021-05-30] MEDS: Heparin 25,000UNIT/250ML 1/2NS 25,000 UNIT/250 ML IV.SOLN IVC SCH (16:19)
[2021-05-30] MEDS ORDERED: *HR* Warfarin 3 MG TABLET PO ONE (18:00)
[2021-05-31] MEDS: *HR* Heparin 5,000 UNIT/ML VIAL IVP PRN ×2 (00:29→10:28)
[2021-05-31 05:31] LABS: Hematocrit 31.9 % (37.5-50.1); Hemoglobin 10.2 g/dL (12.9-16.9); Mean Corpuscular Hemoglobin 27.8 pg (28.0-33.3); Mean Corpuscular Volume 86.9 fL (83.0-100.0); Mean Platelet Volume 11.3 fL (9.4-12.4); Platelet Count 311 K/mcL (140-400); Red Blood Count 3.67 M/mcL (4.19-5.50); Red Cell Distribution Width 15.1 % (11.5-14.5); White Blood Count 19.7 K/mcL (4.3-11.1)
[2021-05-31 05:49] LABS: Calcium 8.1 mg/dL (8.6-10.3); Potassium 4.6 mEq/L (3.5-5.1)
[2021-05-31 06:06] LABS: Prothrombin Time 22.2 Seconds (9.4-12.1)
[2021-05-31] MEDS: Insulin LISPRO 300 UNITS/3 ML VIAL SUBQ SCH ×3 (08:15→17:12)
[2021-05-31] MEDS ORDERED: 0.9 % Sodium Chloride 250 ML IVC PRN (08:36)
[2021-05-31] MEDS ORDERED: *HR* Heparin 10,000 UNIT/10 ML VIAL IV PRN (08:36)
[2021-05-31] MEDS: Lactobacillus 1 EACH CAP.SPRINK PO SCH ×2 (08:57→10:58)
[2021-05-31] MEDS: amLODIPine 5 MG TABLET PO SCH ×2 (08:57→10:59)
[2021-05-31] MEDS: Cyanocobalamin (B-12) 1,000 MCG TABLET PO SCH ×2 (08:58→10:59)
[2021-05-31] MEDS: Cholecalciferol (D-3) 1,000 UNIT (25MCG) TABLET PO SCH ×3 (08:58→21:26)
[2021-05-31] MEDS: Bumetanide 1 MG/4 ML VIAL IVP SCH (08:59)
[2021-05-31 10:00] LABS: Heparin anti-factor XA UFH 0.06 IU/mL (0.30-0.70)
[2021-05-31] MEDS: carvediloL 25 MG TABLET PO SCH ×2 (10:58→17:12)
[2021-05-31 16:43] LABS: Hematocrit 32.9 % (37.5-50.1); Hemoglobin 10.9 g/dL (12.9-16.9); Mean Corpuscular HGB Conc 33.1 g/dL (31.6-35.5); Mean Corpuscular Hemoglobin 28.8 pg (28.0-33.3); Mean Corpuscular Volume 86.8 fL (83.0-100.0); Mean Platelet Volume 11.3 fL (9.4-12.4); Nucleated Red Blood Cells 0.2 /100 WBC (0); Platelet Count 317 K/mcL (140-400); Red Blood Count 3.79 M/mcL (4.19-5.50); Red Cell Distribution Width 15.4 % (11.5-14.5)
[2021-05-31 17:28] LABS: Lymphocytes # 5.7 K/mcL (0.6-4.6); Monocytes # 0.8 K/mcL (0.0-1.3); Neutrophils # 12.5 K/mcL (1.6-8.9)
[2021-05-31] MEDS: Insulin DETEMIR 100 UNIT/ML X5UNITS SUBQ SCH (21:28)
[2021-05-31] MEDS: Heparin 25,000UNIT/250ML 1/2NS 25,000 UNIT/250 ML IV.SOLN IVC SCH (23:38)
[2021-06-01 05:48] LABS: Hematocrit 31.7 % (37.5-50.1); Hemoglobin 10.1 g/dL (12.9-16.9); Mean Corpuscular HGB Conc 31.9 g/dL (31.6-35.5); Mean Corpuscular Hemoglobin 27.5 pg (28.0-33.3); Mean Corpuscular Volume 86.4 fL (83.0-100.0); Mean Platelet Volume 11.8 fL (9.4-12.4); Platelet Count 239 K/mcL (140-400); Red Blood Count 3.67 M/mcL (4.19-5.50); Red Cell Distribution Width 15.3 % (11.5-14.5); White Blood Count 22.6 K/mcL (4.3-11.1)
[2021-06-01 06:06] LABS: INR 1.8; Prothrombin Time 20.2 Seconds (9.4-12.1)
[2021-06-01 06:08] LABS: Calcium 7.9 mg/dL (8.6-10.3); Potassium 4.8 mEq/L (3.5-5.1)
[2021-06-01] MEDS: amLODIPine 5 MG TABLET PO SCH (08:23)
[2021-06-01] MEDS: carvediloL 25 MG TABLET PO SCH ×2 (08:23→16:33)
[2021-06-01] MEDS: Lactobacillus 1 EACH CAP.SPRINK PO SCH (08:24)
[2021-06-01] MEDS: Cholecalciferol (D-3) 1,000 UNIT (25MCG) TABLET PO SCH ×2 (08:24→22:43)
[2021-06-01] MEDS: Cyanocobalamin (B-12) 1,000 MCG TABLET PO SCH (08:24)
[2021-06-01] MEDS: Bumetanide 1 MG/4 ML VIAL IVP SCH (08:24)
[2021-06-01] MEDS: Insulin LISPRO 300 UNITS/3 ML VIAL SUBQ SCH ×3 (08:25→19:50)
[2021-06-01] MEDS: Insulin DETEMIR 100 UNIT/ML X5UNITS SUBQ SCH ×2 (10:10→22:52)
[2021-06-01] MEDS ORDERED: Heparin 1,000 UNITS/500 mL 500 ML ONE (12:57)
[2021-06-01] MEDS ORDERED: Lidocaine/EPI 1:100k 1% 50 ML VIAL ONE (12:57)
[2021-06-01] MEDS ORDERED: *HR* Heparin 5,000 UNIT/ML VIAL ONE (13:56)
[2021-06-01] MEDS ORDERED: 0.9 % Sodium Chloride 250 ML IVC PRN (14:57)
[2021-06-01] MEDS ORDERED: *HR* Heparin 10,000 UNIT/10 ML VIAL IV PRN (14:57)
[2021-06-01] MEDS: Doxycycline 100 MG in 0.9 % Sodium Chloride Mini Bag 100 ML IVPB SCH ×2 (15:06→22:56)
[2021-06-01] MEDS ORDERED: *HR* Warfarin 3 MG TABLET PO ONE (18:00)
[2021-06-01] MEDS: Heparin 25,000UNIT/250ML 1/2NS 25,000 UNIT/250 ML IV.SOLN IVC SCH (22:43)
[2021-06-02 06:27] LABS: Hematocrit 29.5 % (37.5-50.1); Hemoglobin 9.5 g/dL (12.9-16.9); Mean Corpuscular HGB Conc 32.2 g/dL (31.6-35.5); Mean Corpuscular Hemoglobin 28.1 pg (28.0-33.3); Mean Corpuscular Volume 87.3 fL (83.0-100.0); Mean Platelet Volume 12.3 fL (9.4-12.4); Platelet Count 198 K/mcL (140-400); Red Blood Count 3.38 M/mcL (4.19-5.50); Red Cell Distribution Width 15.8 % (11.5-14.5); White Blood Count 22.1 K/mcL (4.3-11.1)
[2021-06-02] MEDS: Heparin 25,000UNIT/250ML 1/2NS 25,000 UNIT/250 ML IV.SOLN IVC SCH (06:40)
[2021-06-02 06:45] LABS: Calcium 7.8 mg/dL (8.6-10.3); Potassium 4.3 mEq/L (3.5-5.1)
[2021-06-02] MEDS: Cholecalciferol (D-3) 1,000 UNIT (25MCG) TABLET PO SCH ×2 (08:30→20:53)
[2021-06-02] MEDS: Bumetanide 1 MG/4 ML VIAL IVP SCH (08:31)
[2021-06-02] MEDS: Cyanocobalamin (B-12) 1,000 MCG TABLET PO SCH (08:31)
[2021-06-02] MEDS: Lactobacillus 1 EACH CAP.SPRINK PO SCH (08:31)
[2021-06-02] MEDS ORDERED: 0.9 % Sodium Chloride 250 ML IVC PRN (08:34)
[2021-06-02] MEDS ORDERED: *HR* Heparin 10,000 UNIT/10 ML VIAL IV PRN (08:34)
[2021-06-02] MEDS: Insulin LISPRO 300 UNITS/3 ML VIAL SUBQ SCH ×3 (13:39→20:53)
[2021-06-02 14:25] LABS: INR 5.4; Prothrombin Time 58.9 Seconds (9.4-12.1)
[2021-06-02] MEDS: Insulin DETEMIR 100 UNIT/ML X5UNITS SUBQ SCH ×2 (14:33→20:53)
[2021-06-02] MEDS: carvediloL 25 MG TABLET PO SCH ×2 (14:35→18:20)
[2021-06-02] MEDS: amLODIPine 5 MG TABLET PO SCH (14:36)
[2021-06-02] MEDS ORDERED: *HR* Phytonadione 5 MG TABLET PO ONE (16:30)
[2021-06-03 03:18] LABS: INR 1.4; Prothrombin Time 15.7 Seconds (9.4-12.1)
[2021-06-03 03:50] LABS: Calcium 7.8 mg/dL (8.6-10.3); Potassium 4.9 mEq/L (3.5-5.1)
[2021-06-03 04:47] VITALS: PULSE 61
[2021-06-03 05:48] LABS: Hematocrit 31.2 % (37.5-50.1); Hemoglobin 9.8 g/dL (12.9-16.9); Mean Corpuscular HGB Conc 31.4 g/dL (31.6-35.5); Mean Corpuscular Hemoglobin 27.8 pg (28.0-33.3); Mean Corpuscular Volume 88.4 fL (83.0-100.0); Mean Platelet Volume 12.8 fL (9.4-12.4); Platelet Count 153 K/mcL (140-400); Red Blood Count 3.53 M/mcL (4.19-5.50); Red Cell Distribution Width 15.9 % (11.5-14.5)
[2021-06-03] MEDS ORDERED: 0.9 % Sodium Chloride 250 ML IVC PRN (08:12)
[2021-06-03] MEDS ORDERED: *HR* Heparin 10,000 UNIT/10 ML VIAL IV PRN (08:12)
[2021-06-03] MEDS ORDERED: Insulin DETEMIR 100 UNIT/ML X5UNITS SUBQ SCH (09:00)
[2021-06-03] MEDS: Insulin LISPRO 300 UNITS/3 ML VIAL SUBQ SCH ×2 (10:19→13:40)
[2021-06-03] MEDS: Lactobacillus 1 EACH CAP.SPRINK PO SCH (10:20)
[2021-06-03] MEDS: amLODIPine 5 MG TABLET PO SCH (10:20)
[2021-06-03] MEDS: Cholecalciferol (D-3) 1,000 UNIT (25MCG) TABLET PO SCH (10:20)
[2021-06-03] MEDS: Cyanocobalamin (B-12) 1,000 MCG TABLET PO SCH (10:20)
[2021-06-03] MEDS: Bumetanide 1 MG/4 ML VIAL IVP SCH (10:23)
[2021-06-03] MEDS: carvediloL 25 MG TABLET PO SCH (10:23)
[2021-06-03 11:46] VITALS: BP 112/54; TEMP 97.3; O2SAT 97
[2021-06-03] MEDS ORDERED: *HR* Warfarin 1 MG TABLET PO ONE (18:00)
[2021-06-03] MEDS ORDERED: *HR* Warfarin 0.5 MG TABLET PO ONE (18:00)
== END 2021-06-03 15:49 | DRG 871 ==
LOC: EMEROOARM 09:52 → 3NENU 09:52 → SUATTDRO 11:44 → 3NENU 12:26
PROVIDERS: ADMIT Internal Medicine; ATTEND Internal Medicine
PROC: IRPERMA (2021-06-01 12:00)

== ENCOUNTER 2022-01-31 21:00 | Inpatient (IN) ==
[2022-02-01] MEDS ORDERED: Iopamidol - 370 500 ML MLS IVP ONE (01:49)
[2022-02-01] MEDS ORDERED: 0.9 % Sodium Chloride 1,000 ML IV ONE ×3 (01:49→07:38)
[2022-02-01 04:01] LABS: Basophils % 0.2 %; Hematocrit 31.6 % (37.5-50.1); Immature Granulocytes % 0.5 % (0-4); Lymphocytes # 1.1 K/mcL (0.6-4.6); Lymphocytes % 6.2 %; Mean Corpuscular HGB Conc 31.6 g/dL (31.6-35.5); Mean Corpuscular Hemoglobin 27.9 pg (28.0-33.3); Mean Platelet Volume 11.5 fL (9.4-12.4); Monocytes # 1.3 K/mcL (0.0-1.3); Monocytes % 7.5 %; Neutrophils # 14.6 K/mcL (1.6-8.9); Platelet Count 259 K/mcL (140-400); Red Blood Count 3.59 M/mcL (4.19-5.50); Red Cell Distribution Width 14.8 % (11.5-14.5); Segmented Neutrophils % 85.6 %; White Blood Count 17.1 K/mcL (4.3-11.1)
[2022-02-01 04:23] LABS: Albumin 3.5 g/dL (3.5-5.7); Albumin/Globulin Ratio 0.9 (1.1-2.2); Bilirubin,Total 1.1 mg/dL (0.3-1.0); Calcium 9.2 mg/dL (8.6-10.3); Globulin 3.9 g/dL (2.4-3.5); Potassium 4.2 mEq/L (3.5-5.1); Total Protein 7.4 g/dL (6.4-8.9)
[2022-02-01 04:35] LABS: Thyroid Stimulating Hormone 1.104 mcIU/mL (0.340-5.600)
[2022-02-01 04:52] LABS: Adenovirus Not Detected (Not Detect); Bordetella Pertussis Not Detected (Not Detect); Chlamydophila pneumoniae Not Detected (Not Detect); Coronavirus 229E Not Detected (Not Detect); Coronavirus HKU1 Not Detected (Not Detect); Coronavirus NL63 Not Detected (Not Detect); Coronavirus OC43 Not Detected (Not Detect); Human Metapneumovirus Not Detected (Not Detect); Human Rhinovirus/Enterovirus Not Detected (Not Detect); Influenza A Subtype 2009 H1 Not Detected (Not Detect); Influenza B Not Detected (Not Detect); Mycoplasma pneumoniae Not Detected (Not Detect); Parainfluenza Virus 1 Not Detected (Not Detect); Parainfluenza Virus 2 Not Detected (Not Detect); Parainfluenza Virus 3 Not Detected (Not Detect); Parainfluenza Virus 4 Not Detected (Not Detect); Respiratory Syncytial Virus Not Detected (Not Detect); SARS-CoV-2 Not Detected (Not Detect)
[2022-02-01 05:24] LABS: Bilirubin,Urine Negative (Negative); Blood,Urine Small (Negative); Clarity,Urine Clear (Clear); Color,Urine Light-Yellow (Yellow); Glucose,Urine (UA) 200 mg/dL (Normal); Ketones,Urine Trace mg/dL (Negative); Leukocyte Esterase,Urine Negative (Negative); Mucus,Urine Few per lpf (None-Few); Nitrite,Urine Negative (Negative); PH,Urine 6.5 pH Units (5.0-8.0); Protein,Urine >=600 mg/dL (Neg-Trace); RBC,Urine 0-3 per hpf (0-3); Specific Gravity,Urine 1.026 (1.010-1.025); Squamous Epithelial Cell,Urine Few per hpf (None-Few); Urobilinogen,Urine Normal (Normal); WBC,Urine 0-3 per hpf (0-3)
[2022-02-01] MEDS ORDERED: Naloxone 0.4 MG/ML INJ IVP PRN (09:00)
[2022-02-01] MEDS ORDERED: Dextrose Gel 15 GM/37.5 ML TUBE PO PRN ×2 (09:11)
[2022-02-01] MEDS ORDERED: D5% in Water 1,000 ML IVC PRN (09:11)
[2022-02-01] MEDS ORDERED: *HR* Dextrose 50 % in Water (Syg) 50 ML SYRINGE IVP PRN (09:11)
[2022-02-01 11:12] LABS: VBG HCO3 24 mEq/L (21-27); VBG PCO2 48 mmHg (41-51); VBG PO2 56 mmHg (25-50)
[2022-02-01] MEDS: Piperacillin/Tazobactam 3.375 GM in 0.9 % Sodium Chloride Mini Bag 100 ML IVPB SCH ×2 (12:49→22:30)
[2022-02-01] MEDS ORDERED: *HR* Metoprolol 5 MG/5 ML VIAL IVP ONE ×3 (16:03→18:36)
[2022-02-01] MEDS: Insulin LISPRO 300 UNITS/3 ML VIAL SUBQ SCH ×3 (16:25→21:28)
[2022-02-01] MEDS: DilTIAZem 50 MG/50 ML IV.SOLN IVC SCH ×2 (17:28→21:04)
[2022-02-01 18:57] LABS: INR 1.5; Prothrombin Time 16.2 Seconds (9.4-12.1)
[2022-02-02] MEDS: DilTIAZem 50 MG/50 ML IV.SOLN IVC SCH ×3 (01:25→12:37)
[2022-02-02 02:46] LABS: Basophils % 0.3 %; Eosinophils % 0.2 %; Hematocrit 27.1 % (37.5-50.1); Hemoglobin 8.5 g/dL (12.9-16.9); Immature Granulocytes % 0.2 % (0-4); Lymphocytes # 1.4 K/mcL (0.6-4.6); Lymphocytes % 12.2 %; Mean Corpuscular HGB Conc 31.4 g/dL (31.6-35.5); Mean Corpuscular Hemoglobin 27.5 pg (28.0-33.3); Mean Corpuscular Volume 87.7 fL (83.0-100.0); Mean Platelet Volume 11.9 fL (9.4-12.4); Monocytes # 1.1 K/mcL (0.0-1.3); Monocytes % 9.6 %; Neutrophils # 9.2 K/mcL (1.6-8.9); Platelet Count 234 K/mcL (140-400); Red Blood Count 3.09 M/mcL (4.19-5.50); Red Cell Distribution Width 14.9 % (11.5-14.5); Segmented Neutrophils % 77.5 %; White Blood Count 11.8 K/mcL (4.3-11.1)
[2022-02-02 03:07] LABS: Calcium 8.2 mg/dL (8.6-10.3)
[2022-02-02] MEDS ORDERED: Piperacillin/Tazobactam 3.375 GM in 0.9 % Sodium Chloride Mini Bag 100 ML IVPB SCH (06:00)
[2022-02-02] MEDS: Furosemide 40 MG TABLET PO SCH (08:10)
[2022-02-02] MEDS: amLODIPine 5 MG TABLET PO SCH (08:11)
[2022-02-02] MEDS: Insulin LISPRO 300 UNITS/3 ML VIAL SUBQ SCH ×4 (08:14→21:50)
[2022-02-02] MEDS ORDERED: *HR* Warfarin 4 MG TABLET PO SCH (09:00)
[2022-02-02 09:26] LABS: INR 1.4
[2022-02-02] MEDS: 0.9 % Sodium Chloride 500 ML IVC SCH ×2 (10:45→16:36)
[2022-02-02] MEDS: DilTIAZem CD (24hr) 120 MG CAP.ER.24H PO SCH (15:38)
[2022-02-02] MEDS ORDERED: Warfarin perPT PO PRN (18:00)
[2022-02-02] MEDS ORDERED: *HR* Warfarin 4 MG TABLET PO ONE (18:00)
[2022-02-03] MEDS: DilTIAZem 50 MG/50 ML IV.SOLN IVC SCH (00:41)
[2022-02-03 03:33] LABS: Basophils % 0.4 %; Eosinophils # 0.1 K/mcL (0.0-0.6); Eosinophils % 1.2 %; Hematocrit 24.8 % (37.5-50.1); Hemoglobin 7.8 g/dL (12.9-16.9); Immature Granulocytes % 0.5 % (0-4); Lymphocytes # 1.3 K/mcL (0.6-4.6); Lymphocytes % 12.6 %; Mean Corpuscular HGB Conc 31.5 g/dL (31.6-35.5); Mean Corpuscular Hemoglobin 28.1 pg (28.0-33.3); Mean Corpuscular Volume 89.2 fL (83.0-100.0); Mean Platelet Volume 11.5 fL (9.4-12.4); Monocytes # 1.1 K/mcL (0.0-1.3); Monocytes % 10.7 %; Neutrophils # 7.7 K/mcL (1.6-8.9); Platelet Count 217 K/mcL (140-400); Red Blood Count 2.78 M/mcL (4.19-5.50); Red Cell Distribution Width 14.9 % (11.5-14.5); Segmented Neutrophils % 74.6 %; White Blood Count 10.3 K/mcL (4.3-11.1)
[2022-02-03 03:53] LABS: Calcium 7.9 mg/dL (8.6-10.3); Potassium 3.8 mEq/L (3.5-5.1)
[2022-02-03] MEDS: 0.9 % Sodium Chloride 500 ML IVC SCH ×3 (04:20→08:18)
[2022-02-03] MEDS: DilTIAZem CD (24hr) 120 MG CAP.ER.24H PO SCH (08:18)
[2022-02-03] MEDS: amLODIPine 5 MG TABLET PO SCH (08:18)
[2022-02-03] MEDS: Furosemide 40 MG TABLET PO SCH (08:18)
[2022-02-03] MEDS: Insulin LISPRO 300 UNITS/3 ML VIAL SUBQ SCH ×4 (08:19→20:09)
[2022-02-03] MEDS ORDERED: Saline Nasal Spray 44 ML BOTTLE NS PRN (09:55)
[2022-02-03 11:21] LABS: INR 1.5; Prothrombin Time 16.5 Seconds (9.4-12.1)
[2022-02-03] MEDS ORDERED: *HR* Warfarin 4 MG TABLET PO ONE (18:00)
[2022-02-03] MEDS ORDERED: Insulin DETEMIR 100 UNIT/ML X5UNITS SUBQ SCH (21:00)
[2022-02-04 04:26] VITALS: PULSE 87; O2SAT 96
[2022-02-04 05:04] LABS: Potassium 3.7 mEq/L (3.5-5.1)
[2022-02-04 05:13] LABS: INR 1.6; Prothrombin Time 17.3 Seconds (9.4-12.1)
[2022-02-04 07:46] VITALS: BP 167/60; TEMP 98.2
[2022-02-04] MEDS: Insulin LISPRO 300 UNITS/3 ML VIAL SUBQ SCH ×2 (08:56→11:33)
[2022-02-04] MEDS: amLODIPine 5 MG TABLET PO SCH (08:57)
[2022-02-04] MEDS: DilTIAZem CD (24hr) 120 MG CAP.ER.24H PO SCH (08:57)
[2022-02-04] MEDS: Furosemide 40 MG TABLET PO SCH (08:57)
[2022-02-04] MEDS ORDERED: *HR* Warfarin 4 MG TABLET PO ONE (18:00)
[2022-02-04] MEDS ORDERED: Insulin DETEMIR 100 UNIT/ML X5UNITS SUBQ SCH (21:00)
== END 2022-02-04 17:00 | disposition home health service (06) | DRG 872 ==
LOC: EMEROOARM 21:00 → 2NENU 21:00 → SUATTDRO 02-01 15:46 → OBSVTOIN 02-01 15:46 → 2NENU 02-01 16:43
PROVIDERS: ADMIT Internal Medicine; ATTEND Internal Medicine

== ENCOUNTER 2022-02-27 00:07 | Inpatient (IN) ==
[2022-02-27] MEDS: Ringers Solution, Lactated 1,000 ML IVC SCH ×4 (00:30→16:25)
[2022-02-27 00:47] LABS: Basophils # 0.1 K/mcL (0.0-0.2); Basophils % 0.2 %; Eosinophils # 0.3 K/mcL (0.0-0.6); Eosinophils % 1.4 %; Hematocrit 29.6 % (37.5-50.1); Hemoglobin 9.1 g/dL (12.9-16.9); Immature Granulocytes % 0.4 % (0-4); Lymphocytes # 0.9 K/mcL (0.6-4.6); Lymphocytes % 4.7 %; Mean Corpuscular HGB Conc 30.7 g/dL (31.6-35.5); Mean Corpuscular Hemoglobin 27.6 pg (28.0-33.3); Mean Corpuscular Volume 89.7 fL (83.0-100.0); Mean Platelet Volume 10.9 fL (9.4-12.4); Monocytes # 1.2 K/mcL (0.0-1.3); Monocytes % 5.8 %; Neutrophils # 17.6 K/mcL (1.6-8.9); Platelet Count 270 K/mcL (140-400); Red Cell Distribution Width 14.6 % (11.5-14.5); Segmented Neutrophils % 87.5 %; White Blood Count 20.1 K/mcL (4.3-11.1)
[2022-02-27 00:53] LABS: INR 1.8
[2022-02-27 00:56] LABS: Activated Partial Thrombo Time 38.1 Seconds (26.0-36.0)
[2022-02-27] MEDS ORDERED: Vancomycin 2,000 MG/520 ML IV.SOLN IVPB ONE (01:00)
[2022-02-27] MEDS ORDERED: Cefepime HCl 1,000 MG in 0.9 % Sodium Chloride Mini Bag 100 ML IVPB ONE (01:00)
[2022-02-27 01:08] LABS: Alanine Aminotransferase 8 Units/L (7-52); Albumin 3.3 g/dL (3.5-5.7); Albumin/Globulin Ratio 0.9 (1.1-2.2); Alkaline Phosphatase 102 Units/L (34-104); Aspartate Amino Transferase 9 Units/L (13-39); BUN/Creatinine Ratio 13 (6-26); Bilirubin,Direct 0.1 mg/dL (0.0-0.2); Bilirubin,Indirect 0.3 mg/dL (0.0-1.0); Bilirubin,Total 0.4 mg/dL (0.3-1.0); Blood Urea Nitrogen 21 mg/dL (6-20); Calcium 8.3 mg/dL (8.6-10.3); Carbon Dioxide 25 mEq/L (23-29); Chloride 101 mEq/L (98-107); Globulin 3.8 g/dL (2.4-3.5); Glucose 309 mg/dL (70-105); Lipase 38 Units/L (11-82); Magnesium 1.3 mg/dL (1.6-2.6); Osmolality,Calculated 295 (280-300); Potassium 5.2 mEq/L (3.5-5.1); Sodium 135 mEq/L (136-145); Total Protein 7.1 g/dL (6.4-8.9); Troponin I < 0.03 ng/mL (< 0.04)
[2022-02-27 02:13] LABS: Influenza A PCR Negative (Negative); Influenza B PCR Negative (Negative); Resp. Syncytial Virus PCR Negative (Negative)
[2022-02-27 02:14] LABS: SARS-CoV-2 by PCR (In House) Negative (Negative)
[2022-02-27] MEDS ORDERED: Ondansetron 4 MG/2 ML VIAL IVP ONE (02:22)
[2022-02-27 02:56] LABS: Bilirubin,Urine Negative (Negative); Blood,Urine Trace (Negative); Clarity,Urine Clear (Clear); Color,Urine Light-Yellow (Yellow); Glucose,Urine (UA) 500 mg/dL (Normal); Ketones,Urine Negative (Negative); Leukocyte Esterase,Urine Negative (Negative); Mucus,Urine Few per lpf (None-Few); Nitrite,Urine Negative (Negative); Protein,Urine >=600 mg/dL (Neg-Trace); Specific Gravity,Urine 1.016 (1.010-1.025); Squamous Epithelial Cell,Urine Few per hpf (None-Few); Urobilinogen,Urine Normal (Normal); WBC,Urine 0-3 per hpf (0-3)
[2022-02-27] MEDS ORDERED: Melatonin 3 MG TABLET PO PRN (03:14)
[2022-02-27] MEDS ORDERED: Acetaminophen 325 MG TABLET PO PRN (03:14)
[2022-02-27] MEDS ORDERED: Naloxone 0.4 MG/ML INJ IVP PRN (03:14)
[2022-02-27] MEDS ORDERED: Ringers Solution, Lactated 1,000 ML IVC SCH (03:15)
[2022-02-27 04:09] LABS: C-Reactive Protein 16 mg/L (Less than 10)
[2022-02-27] MEDS ORDERED: *HR* Labetalol 20 MG/4 ML SYRINGE IVP PRN (04:17)
[2022-02-27] MEDS ORDERED: Dextrose Gel 15 GM/37.5 ML TUBE PO PRN ×2 (04:25)
[2022-02-27] MEDS ORDERED: *HR* Dextrose 50 % in Water (Syg) 50 ML SYRINGE IVP PRN (04:25)
[2022-02-27] MEDS ORDERED: D5% in Water 1,000 ML IVC PRN (04:25)
[2022-02-27] MEDS: Doxycycline 100 MG in 0.9 % Sodium Chloride Mini Bag 100 ML IVPB SCH ×2 (06:22→18:30)
[2022-02-27] MEDS: Insulin LISPRO 300 UNITS/3 ML VIAL SUBQ SCH ×4 (07:58→20:24)
[2022-02-27 08:36] LABS: Basophils # 0.1 K/mcL (0.0-0.2); Basophils % 0.3 %; Eosinophils # 0.1 K/mcL (0.0-0.6); Eosinophils % 0.3 %; Hematocrit 26.4 % (37.5-50.1); Hemoglobin 8.3 g/dL (12.9-16.9); Immature Granulocytes % 0.7 % (0-4); Lymphocytes # 1.5 K/mcL (0.6-4.6); Lymphocytes % 7.2 %; Mean Corpuscular HGB Conc 31.4 g/dL (31.6-35.5); Mean Corpuscular Hemoglobin 27.7 pg (28.0-33.3); Mean Platelet Volume 11.4 fL (9.4-12.4); Monocytes # 1.8 K/mcL (0.0-1.3); Monocytes % 8.2 %; Neutrophils # 17.8 K/mcL (1.6-8.9); Platelet Count 226 K/mcL (140-400); Red Cell Distribution Width 14.8 % (11.5-14.5); Segmented Neutrophils % 83.3 %; White Blood Count 21.4 K/mcL (4.3-11.1)
[2022-02-27] MEDS: Cefepime HCl 2,000 MG in 0.9 % Sodium Chloride 10 ML IVP SCH (12:29)
[2022-02-27] MEDS ORDERED: Warfarin perPT PO PRN (18:00)
[2022-02-27] MEDS ORDERED: *HR* Warfarin 10 MG TABLET PO ONE (18:45)
[2022-02-27] MEDS ORDERED: *HR* Warfarin 2 MG TABLET PO ONE (18:45)
[2022-02-27 19:00] LABS: CTX-M ESBL Gene Not Detected (Not Detect); IMP Carbapenem-Resist Gene Not Detected (Not Detect); NDM Carbapenem-Resist Gene Not Detected (Not Detect); OXA-48-like Carbap-Resist Gene Not Detected (Not Detect); VIM Carbapenem-Resist Gene Not Detected (Not Detect); blaKPC Carbapenem-Resist Gene Not Detected (Not Detect)
[2022-02-27 19:01] LABS: A.calcoaceticus-baumannii cplx Not Detected (Not Detect); Bacteroides fragilis by PCR Not Detected (Not Detect); Candida albicans by PCR Not Detected (Not Detect); Candida auris by PCR Not Detected (Not Detect); Candida glabrata by PCR Not Detected (Not Detect); Candida krusei by PCR Not Detected (Not Detect); Candida parapsilosis by PCR Not Detected (Not Detect); Candida tropicalis by PCR Not Detected (Not Detect); Crypto. neoformans/gattii PCR Not Detected (Not Detect); Enterobacter cloacae Cmplx PCR Not Detected (Not Detect); Enterococcus faecalis by PCR Not Detected (Not Detect); Enterococcus faecium by PCR Not Detected (Not Detect); Escherichia coli by PCR Not Detected (Not Detect); Klebs. pneumoniae group by PCR Not Detected (Not Detect); Klebsiella aerogenes by PCR Not Detected (Not Detect); Klebsiella oxytoca by PCR Not Detected (Not Detect); Proteus by PCR Not Detected (Not Detect); Pseudomonas aeruginosa by PCR Not Detected (Not Detect); Salmonella species by PCR Not Detected (Not Detect); Serratia marcescens by PCR DETECTED (Not Detect); Staph epidermidis by PCR Not Detected (Not Detect); Staph lugdunensis by PCR Not Detected (Not Detect); Staphylococcus aureus by PCR Not Detected (Not Detect); Staphylococcus by PCR Not Detected (Not Detect); Stenotrophomonas maltophilia Not Detected (Not Detect); Streptococcus agalactiae(B)PCR Not Detected (Not Detect); Streptococcus by PCR Not Detected (Not Detect); Streptococcus pneumoniae PCR Not Detected (Not Detect); Streptococcus pyogenes (A) PCR Not Detected (Not Detect)
[2022-02-27] MEDS: Insulin DETEMIR 100 UNIT/ML X5UNITS SUBQ SCH (20:24)
[2022-02-27 23:11] LABS: Adenovirus F 40/41 PCR Not detected (Not detect); Astrovirus PCR Not detected (Not detect); C.difficile Toxin A/B Gene PCR Not detected (Not detect); Campylobacter by PCR Not detected (Not detect); Cryptosporidium by PCR Not detected (Not detect); Cyclospora cayetanensis PCR Not detected (Not detect); Entamoeba histolytica PCR Not detected (Not detect); Enteroaggregative E.coli(EAEC) Not detected (Not detect); Enteropathogenic E.coli(EPEC) Not detected (Not detect); Enterotoxigenic E.coli (ETEC) DETECTED (Not detect); Giardia lamblia PCR Not detected (Not detect); Norovirus GI/GII PCR Not detected (Not detect); Plesiomonas shigelloides PCR Not detected (Not detect); Rotavirus A PCR Not detected (Not detect); Salmonella PCR Not detected (Not detect); Sapovirus PCR Not detected (Not detect); Shig/EnteroinvasiveE coli EIEC Not detected (Not detect); Shigalike tox-prod E coli STEC Not detected (Not detect); Vibrio PCR Not detected (Not detect); Vibrio cholerae PCR Not detected (Not detect); Yersinia enterocolitica PCR Not detected (Not detect)
[2022-02-28] MEDS: Cefepime HCl 2,000 MG in 0.9 % Sodium Chloride 10 ML IVP SCH ×2 (00:01→17:12)
[2022-02-28] MEDS: Doxycycline 100 MG in 0.9 % Sodium Chloride Mini Bag 100 ML IVPB SCH ×2 (05:11→17:13)
[2022-02-28] MEDS: Insulin LISPRO 300 UNITS/3 ML VIAL SUBQ SCH ×4 (07:43→22:14)
[2022-02-28 08:34] LABS: Hematocrit 24.9 % (37.5-50.1); Hemoglobin 7.7 g/dL (12.9-16.9); Mean Corpuscular HGB Conc 30.9 g/dL (31.6-35.5); Mean Corpuscular Hemoglobin 27.6 pg (28.0-33.3); Mean Corpuscular Volume 89.2 fL (83.0-100.0); Mean Platelet Volume 10.9 fL (9.4-12.4); Platelet Count 216 K/mcL (140-400); Red Blood Count 2.79 M/mcL (4.19-5.50); Red Cell Distribution Width 15.3 % (11.5-14.5)
[2022-02-28 08:42] LABS: INR 1.6
[2022-02-28 08:56] LABS: Albumin 2.9 g/dL (3.5-5.7); Albumin/Globulin Ratio 0.9 (1.1-2.2); Bilirubin,Total 0.3 mg/dL (0.3-1.0); Calcium 8.5 mg/dL (8.6-10.3); Globulin 3.3 g/dL (2.4-3.5); Magnesium 1.7 mg/dL (1.6-2.6); Potassium 4.3 mEq/L (3.5-5.1); Total Protein 6.2 g/dL (6.4-8.9)
[2022-02-28] MEDS ORDERED: Azithromycin 250 MG TABLET PO ONE (08:59)
[2022-02-28] MEDS: Cholecalciferol (D-3) 1,000 UNIT (25MCG) TABLET PO SCH (09:55)
[2022-02-28] MEDS: Ringers Solution, Lactated 1,000 ML IVC SCH (09:55)
[2022-02-28] MEDS: calcitrioL 0.25 MCG CAPSULE PO SCH (09:55)
[2022-02-28] MEDS: DilTIAZem CD (24hr) 240 MG CAP.ER.24H PO SCH (09:55)
[2022-02-28] MEDS ORDERED: Cefepime HCl 2,000 MG in 0.9 % Sodium Chloride Mini Bag 100 ML IVPB SCH (10:00)
[2022-02-28] MEDS ORDERED: Ringers Solution, Lactated 1,000 ML IVC SCH (14:45)
[2022-02-28] MEDS ORDERED: *HR* Warfarin 4 MG TABLET PO ONE (18:00)
[2022-02-28] MEDS ORDERED: *HR* Warfarin 3 MG TABLET PO ONE (18:00)
[2022-02-28] MEDS: Insulin DETEMIR 100 UNIT/ML X5UNITS SUBQ SCH (20:48)
[2022-03-01] MEDS: Cefepime HCl 2,000 MG in 0.9 % Sodium Chloride 10 ML IVP SCH ×3 (02:27→17:53)
[2022-03-01 03:13] LABS: Basophils # 0.1 K/mcL (0.0-0.2); Basophils % 0.6 %; Eosinophils # 0.3 K/mcL (0.0-0.6); Eosinophils % 3.5 %; Hematocrit 25.6 % (37.5-50.1); Hemoglobin 7.7 g/dL (12.9-16.9); Immature Granulocytes % 0.3 % (0-4); Lymphocytes # 1.6 K/mcL (0.6-4.6); Lymphocytes % 17.1 %; Mean Corpuscular HGB Conc 30.1 g/dL (31.6-35.5); Mean Corpuscular Volume 89.8 fL (83.0-100.0); Mean Platelet Volume 10.7 fL (9.4-12.4); Monocytes # 1.1 K/mcL (0.0-1.3); Monocytes % 12.1 %; Neutrophils # 6.2 K/mcL (1.6-8.9); Platelet Count 234 K/mcL (140-400); Red Blood Count 2.85 M/mcL (4.19-5.50); Red Cell Distribution Width 15.1 % (11.5-14.5); Segmented Neutrophils % 66.4 %; White Blood Count 9.4 K/mcL (4.3-11.1)
[2022-03-01 03:23] LABS: INR 1.7; Prothrombin Time 18.5 Seconds (9.4-12.1)
[2022-03-01 03:32] LABS: Calcium 8.7 mg/dL (8.6-10.3); Magnesium 1.8 mg/dL (1.6-2.6); Phosphorous 4.2 mg/dL (2.7-4.5); Potassium 4.6 mEq/L (3.5-5.1)
[2022-03-01] MEDS: Doxycycline 100 MG in 0.9 % Sodium Chloride Mini Bag 100 ML IVPB SCH ×2 (06:06→17:52)
[2022-03-01] MEDS: Insulin LISPRO 300 UNITS/3 ML VIAL SUBQ SCH ×4 (07:38→20:42)
[2022-03-01] MEDS: Cholecalciferol (D-3) 1,000 UNIT (25MCG) TABLET PO SCH (08:53)
[2022-03-01] MEDS: DilTIAZem CD (24hr) 240 MG CAP.ER.24H PO SCH (08:54)
[2022-03-01] MEDS ORDERED: *HR* Warfarin 4 MG TABLET PO ONE (18:00)
[2022-03-01] MEDS: Insulin DETEMIR 100 UNIT/ML X5UNITS SUBQ SCH (20:42)
[2022-03-02] MEDS: Cefepime HCl 2,000 MG in 0.9 % Sodium Chloride 10 ML IVP SCH ×2 (01:24→09:33)
[2022-03-02 04:17] LABS: INR 2.2; Prothrombin Time 24.1 Seconds (9.4-12.1)
[2022-03-02] MEDS: Doxycycline 100 MG in 0.9 % Sodium Chloride Mini Bag 100 ML IVPB SCH (05:01)
[2022-03-02 07:43] VITALS: BP 172/72; PULSE 83; TEMP 97.9; O2SAT 96
[2022-03-02] MEDS ORDERED: Furosemide 40 MG TABLET PO SCH (09:00)
[2022-03-02] MEDS: Insulin LISPRO 300 UNITS/3 ML VIAL SUBQ SCH (09:19)
[2022-03-02] MEDS: Cholecalciferol (D-3) 1,000 UNIT (25MCG) TABLET PO SCH (09:34)
[2022-03-02] MEDS: DilTIAZem CD (24hr) 240 MG CAP.ER.24H PO SCH (09:35)
[2022-03-02] MEDS: calcitrioL 0.25 MCG CAPSULE PO SCH (09:39)
== END 2022-03-02 11:41 | disposition home or self-care (01) | DRG 872 ==
LOC: EMEROOARM 00:07 → 2ANU 00:07 → SUATTDRO 03:19 → 2ANU 04:51
PROVIDERS: ADMIT Internal Medicine; ATTEND Family Medicine